=== PATIENT | male | born 1960 | race Two or more races ===

== ENCOUNTER → 2024-07-15 13:40 | Inpatient (IN) | payer MEDICAID, SELFPAY ==
[2023-02-07] VITALS (9 sets, daily range): BP systolic 110–135; BP diastolic 61–80; PULSE 68–93; RESP 20–82; TEMP 36.3–36.6; O2SAT 99–100
[2023-02-07 07:04] LABS: Albumin, Serum 3.8 gm/dL (3.4-4.8); Anion Gap 7 (7-16); BUN/Creatinine Ratio 58 Ratio (12-20); Blood Urea Nitrogen 29 mg/dL (9-23); Calcium 9.4 mg/dL (8.3-10.6); Calcium (Corrected) 9.6 mg/dL (8.5-10.1); Carbon Dioxide 27.1 mMol/L (20.0-31.0); Chloride 104 mMol/L (98-107); Creatinine (Component) 0.5 mg/dL (0.6-1.3); Estimated Creatinine Clearance 157.2 mL/min (>60); Glucose 198 mg/dL (74-106); Glucose,Fasting 198 mg/dL (74-106); Osmolality,Calculated 287 (275-295); Phosphorous 3.2 mg/dL (2.4-5.1); Potassium 4.2 mMol/L (3.4-5.1); Sodium 138 mMol/L (136-145); eGFR > 60 See Note
[2023-02-07] MEDS: FUROSEMIDE 20 MG TABLET GT (08:36)
[2023-02-07] MEDS: FAMOTIDINE 20 MG TABLET GT ×2 (08:37→20:26)
[2023-02-07] MEDS: ASCORBIC ACID 500 MG TABLET GT ×2 (08:37→20:25)
[2023-02-07] MEDS: AMLODIPINE 5 MG TABLET GT (08:37)
[2023-02-07] MEDS: SENNOSIDES 8.6 MG TABLET GT ×2 (08:38→20:26)
[2023-02-07] MEDS: ALBUTEROL NEB 2.5 MG/3 ML VIAL.NEB INH ×4 (11:46→13:23)
[2023-02-07] MEDS: IPRATROPIUM BROMIDE 0.2 MG/ML SOLUTION 0.5 MG INH ×5 (11:46→19:53)
--- NOTE | 2023-02-07 14:26 | PC.SS ---
Room visit: Resident is laying in bed with TV on with head of the bed elevated with call light properly placed. Resident is well groomed not showing any signs of distress. Resident has no changes in mood or behavior, resident to remain in current care as there is no changes in care or condition. Resident will continue to receive daily room visits from [facility] and will be offered any support needed.
[2023-02-07] MEDS: INSULIN REGULAR, HUMAN 100 UNIT/ML VIAL SC (18:06)
[2023-02-07] MEDS: INSULIN GLARGINE 100 UNIT/ML INSULN.PEN 14 UNIT SC ×3 (18:08→18:09)
[2023-02-07] MEDS: DOXAZOSIN 2 MG TABLET 4 MG GT (20:26)
[2023-02-08] VITALS (10 sets, daily range): BP systolic 123–155; BP diastolic 71–91; PULSE 69–76; RESP 20–22; TEMP 36.1–36.6; O2SAT 99–100
[2023-02-08] MEDS: IPRATROPIUM BROMIDE 0.2 MG/ML SOLUTION 0.5 MG INH ×4 (01:04→19:11)
[2023-02-08] MEDS: AMLODIPINE 5 MG TABLET GT (09:55)
[2023-02-08] MEDS: MULTIVIT-MIN/IRON FUM/FOLIC AC 1 EACH TABLET GT (09:55)
[2023-02-08] MEDS: FUROSEMIDE 20 MG TABLET GT (09:55)
[2023-02-08] MEDS: FAMOTIDINE 20 MG TABLET GT ×2 (09:56→20:10)
[2023-02-08] MEDS: ASCORBIC ACID 500 MG TABLET GT ×2 (09:56→20:11)
[2023-02-08] MEDS: SENNOSIDES 8.6 MG TABLET GT ×2 (09:56→20:11)
[2023-02-08] MEDS: ALBUTEROL NEB 2.5 MG/3 ML VIAL.NEB INH ×3 (11:14→19:11)
[2023-02-08] MEDS: INSULIN REGULAR, HUMAN 100 UNIT/ML VIAL SC ×2 (12:17→17:52)
[2023-02-08] MEDS: DOXAZOSIN 2 MG TABLET 4 MG GT (20:09)
[2023-02-09] VITALS (10 sets, daily range): BP systolic 115–146; BP diastolic 71–83; PULSE 68–80; RESP 20–22; TEMP 36.1–36.6; O2SAT 98–100
[2023-02-09] MEDS: ALBUTEROL NEB 2.5 MG/3 ML VIAL.NEB INH ×4 (00:19→16:48)
[2023-02-09] MEDS: IPRATROPIUM BROMIDE 0.2 MG/ML SOLUTION 0.5 MG INH ×4 (00:19→16:49)
[2023-02-09] MEDS: INSULIN REGULAR, HUMAN 100 UNIT/ML VIAL SC ×3 (06:11→17:38)
[2023-02-09] MEDS: MULTIVIT-MIN/IRON FUM/FOLIC AC 1 EACH TABLET GT (08:53)
[2023-02-09] MEDS: AMLODIPINE 5 MG TABLET GT (08:54)
[2023-02-09] MEDS: ASCORBIC ACID 500 MG TABLET GT ×2 (08:55→21:19)
[2023-02-09] MEDS: SENNOSIDES 8.6 MG TABLET GT ×2 (08:56→21:20)
[2023-02-09] MEDS: FAMOTIDINE 20 MG TABLET GT ×2 (08:56→21:19)
[2023-02-09] MEDS: INSULIN GLARGINE 100 UNIT/ML INSULN.PEN 14 UNIT SC (17:37)
[2023-02-09] MEDS: DOXAZOSIN 2 MG TABLET 4 MG GT (21:19)
[2023-02-10] VITALS (9 sets, daily range): BP systolic 122–158; BP diastolic 65–94; PULSE 72–89; RESP 20–23; TEMP 36.1–36.7; O2SAT 96–100
[2023-02-10] MEDS: IPRATROPIUM BROMIDE 0.2 MG/ML SOLUTION 0.5 MG INH ×4 (01:53→18:27)
[2023-02-10] MEDS: ALBUTEROL NEB 2.5 MG/3 ML VIAL.NEB INH ×4 (01:53→18:27)
--- NOTE | 2023-02-10 08:06 | PD.SAPROG ---
Progress Note - SubAcute DIAGNOSIS (1) Chronic respiratory failure: Status: Acute (2) Ventilator dependent: Status: Acute (3) PEG (percutaneous endoscopic gastrostomy) status: Status: Acute (4) Tracheostomy in place: Status: Acute SUBJECTIVE Fever:: none Shortness of Breath:: none GI:: no complaints Pain:: none OBJECTIVE Most recent vital signs: Last Vital Signs Temp 97.5 F 02/16/23 05:53 Pulse 79 02/16/23 05:53 Resp 20 02/16/23 05:53 BP 115/69 02/16/23 05:53 Pulse Ox 99 02/16/23 05:53 O2 Del Method Mechanical Ventilation 02/15/23 17:43 FiO2 35 02/16/23 01:14 Neurological:: PVS Speech:: none Answers questions:: no Respiratory:: shallow breathing Cardiovascular: RRR Abdomen: soft and nontender Decubitus:: none Tracheostomy:: to ventilator Feeding per:: G tube Complaints:: none ASSESSMENT & PLAN Assessment: Not responsive to verbal commands, no cognitive improvement. Diagnosis and treatment reviewed. Ventilator settings reviewed and continued Plan: Current treatment as ongoing
[2023-02-10] MEDS: FUROSEMIDE 20 MG TABLET GT (09:41)
[2023-02-10] MEDS: AMLODIPINE 5 MG TABLET GT (09:43)
[2023-02-10] MEDS: MULTIVIT-MIN/IRON FUM/FOLIC AC 1 EACH TABLET GT (09:43)
[2023-02-10] MEDS: SENNOSIDES 8.6 MG TABLET GT ×2 (09:44→19:51)
[2023-02-10] MEDS: FAMOTIDINE 20 MG TABLET GT ×2 (09:44→19:51)
[2023-02-10] MEDS: ASCORBIC ACID 500 MG TABLET GT ×2 (09:44→19:50)
[2023-02-10] MEDS: INSULIN REGULAR, HUMAN 100 UNIT/ML VIAL SC (11:39)
[2023-02-10] MEDS: INSULIN GLARGINE 100 UNIT/ML INSULN.PEN 14 UNIT SC (17:27)
[2023-02-10] MEDS: DOXAZOSIN 2 MG TABLET 4 MG GT (19:51)
[2023-02-11] VITALS (9 sets, daily range): BP systolic 105–148; BP diastolic 69–83; PULSE 74–83; RESP 19–22; TEMP 36–36.6; O2SAT 99–100
[2023-02-11] MEDS: ALBUTEROL NEB 2.5 MG/3 ML VIAL.NEB INH ×2 (01:00→06:07)
[2023-02-11] MEDS: IPRATROPIUM BROMIDE 0.2 MG/ML SOLUTION 0.5 MG INH ×2 (01:00→06:07)
[2023-02-11] MEDS: INSULIN REGULAR, HUMAN 100 UNIT/ML VIAL SC ×3 (05:57→23:42)
[2023-02-11] MEDS: FUROSEMIDE 20 MG TABLET GT ×2 (09:00→09:33)
[2023-02-11] MEDS: MULTIVIT-MIN/IRON FUM/FOLIC AC 1 EACH TABLET GT (09:33)
[2023-02-11] MEDS: AMLODIPINE 5 MG TABLET GT (09:33)
[2023-02-11] MEDS: FAMOTIDINE 20 MG TABLET GT ×2 (09:34→21:16)
[2023-02-11] MEDS: ASCORBIC ACID 500 MG TABLET GT ×2 (09:34→21:16)
[2023-02-11] MEDS: SENNOSIDES 8.6 MG TABLET GT ×2 (09:34→21:16)
--- NOTE | 2023-02-11 10:19 | PC.SS ---
Resident is here for subacute care with trach and GT in place, he is ventilator dependent. Resident is total care and requires 24 hour care, he has a heavy care regimen, family is unable to care for him at home. Currently resident does not have any changes in care or condition, he continues to require subacute care. Resident is not ready to DC to SNF or lower level of care, he will be evaluated as appropriate for DC panning.
[2023-02-11] MEDS: IPRATROPIUM/ALBUTEROL 3 ML AMPUL.NEB INH ×2 (11:42→19:39)
[2023-02-11] MEDS: INSULIN GLARGINE 100 UNIT/ML INSULN.PEN 14 UNIT SC (17:27)
[2023-02-11] MEDS: DOXAZOSIN 2 MG TABLET 4 MG GT (21:16)
[2023-02-12] VITALS (9 sets, daily range): BP systolic 114–147; BP diastolic 60–79; PULSE 75–81; RESP 20–27; TEMP 36.1–36.6; O2SAT 95–100
[2023-02-12] MEDS: IPRATROPIUM/ALBUTEROL 3 ML AMPUL.NEB INH ×4 (00:51→20:02)
[2023-02-12] MEDS: INSULIN REGULAR, HUMAN 100 UNIT/ML VIAL SC ×2 (05:47→17:39)
[2023-02-12] MEDS: FUROSEMIDE 20 MG TABLET GT (09:38)
[2023-02-12] MEDS: AMLODIPINE 5 MG TABLET GT (09:38)
[2023-02-12] MEDS: MULTIVIT-MIN/IRON FUM/FOLIC AC 1 EACH TABLET GT (09:38)
[2023-02-12] MEDS: FAMOTIDINE 20 MG TABLET GT ×2 (09:39→21:15)
[2023-02-12] MEDS: ASCORBIC ACID 500 MG TABLET GT ×2 (09:39→21:14)
[2023-02-12] MEDS: INSULIN GLARGINE 100 UNIT/ML INSULN.PEN 14 UNIT SC (17:38)
[2023-02-12] MEDS: SENNOSIDES 8.6 MG TABLET GT (21:14)
[2023-02-12] MEDS: DOXAZOSIN 2 MG TABLET 4 MG GT (21:15)
[2023-02-12] MEDS: ACETAMINOPHEN 325 MG/10.15 ML 650 MG GT (21:15)
[2023-02-13] VITALS (9 sets, daily range): BP systolic 120–146; BP diastolic 79–84; PULSE 57–87; RESP 20–32; TEMP 36.2–36.4; O2SAT 96–100
[2023-02-13] MEDS: IPRATROPIUM/ALBUTEROL 3 ML AMPUL.NEB INH ×4 (01:17→19:25)
[2023-02-13] MEDS: INSULIN REGULAR, HUMAN 100 UNIT/ML VIAL SC ×2 (05:19→17:25)
[2023-02-13] MEDS: FUROSEMIDE 20 MG TABLET GT ×2 (09:41→18:42)
[2023-02-13] MEDS: MULTIVIT-MIN/IRON FUM/FOLIC AC 1 EACH TABLET GT ×2 (09:41→18:42)
[2023-02-13] MEDS: SENNOSIDES 8.6 MG TABLET GT ×3 (09:41→20:26)
[2023-02-13] MEDS: AMLODIPINE 5 MG TABLET GT (09:42)
[2023-02-13] MEDS: ASCORBIC ACID 500 MG TABLET GT ×2 (09:43→20:24)
[2023-02-13] MEDS: FAMOTIDINE 20 MG TABLET GT ×2 (09:43→20:24)
[2023-02-13] MEDS: DOXAZOSIN 2 MG TABLET 4 MG GT (20:27)
[2023-02-14] VITALS (10 sets, daily range): BP systolic 115–159; BP diastolic 73–85; PULSE 68–87; RESP 19–21; TEMP 36.1–36.5; O2SAT 96–100
[2023-02-14] MEDS: IPRATROPIUM/ALBUTEROL 3 ML AMPUL.NEB INH ×4 (00:50→18:55)
[2023-02-14] MEDS: AMLODIPINE 5 MG TABLET GT (09:03)
[2023-02-14] MEDS: ASCORBIC ACID 500 MG TABLET GT ×2 (09:04→21:22)
[2023-02-14] MEDS: FAMOTIDINE 20 MG TABLET GT ×2 (09:04→21:22)
[2023-02-14] MEDS: FUROSEMIDE 20 MG TABLET GT (09:04)
[2023-02-14] MEDS: MULTIVIT-MIN/IRON FUM/FOLIC AC 1 EACH TABLET GT (09:05)
[2023-02-14] MEDS: SENNOSIDES 8.6 MG TABLET GT ×2 (09:05→21:22)
[2023-02-14] MEDS: INSULIN REGULAR, HUMAN 100 UNIT/ML VIAL SC ×2 (12:36→17:43)
--- NOTE | 2023-02-14 15:52 | PC.SS ---
Room visit: Resident is laying in bed with TV on with head of the bed elevated with call light properly placed. Resident is well groomed not showing any signs of distress. Resident continues to receive daily room visit from this [facility]. Resident here to day for bedside visit with resident. Resident has no changes in mood or behavior, resident to remain in current care as there is no changes in care or condition.
[2023-02-14] MEDS: INSULIN GLARGINE 100 UNIT/ML INSULN.PEN 14 UNIT SC (17:41)
[2023-02-14] MEDS: DOXAZOSIN 2 MG TABLET 4 MG GT (21:22)
[2023-02-15] VITALS (9 sets, daily range): BP systolic 102–147; BP diastolic 44–82; PULSE 76–84; RESP 20–24; TEMP 36–36.4; O2SAT 97–100
[2023-02-15] MEDS: IPRATROPIUM/ALBUTEROL 3 ML AMPUL.NEB INH ×3 (00:53→19:40)
[2023-02-15] MEDS: AMLODIPINE 5 MG TABLET GT (09:43)
[2023-02-15] MEDS: FUROSEMIDE 20 MG TABLET GT (09:44)
[2023-02-15] MEDS: FAMOTIDINE 20 MG TABLET GT ×2 (09:44→21:06)
[2023-02-15] MEDS: ASCORBIC ACID 500 MG TABLET GT ×2 (09:44→21:06)
[2023-02-15] MEDS: MULTIVIT-MIN/IRON FUM/FOLIC AC 1 EACH TABLET GT (09:45)
[2023-02-15] MEDS: SENNOSIDES 8.6 MG TABLET GT ×2 (09:45→21:07)
[2023-02-15] MEDS: INSULIN REGULAR, HUMAN 100 UNIT/ML VIAL SC ×2 (11:42→17:25)
[2023-02-15] MEDS: INSULIN GLARGINE 100 UNIT/ML INSULN.PEN 14 UNIT SC (17:27)
[2023-02-15] MEDS: DOXAZOSIN 2 MG TABLET 4 MG GT (21:06)
[2023-02-16] VITALS (9 sets, daily range): BP systolic 112–132; BP diastolic 69–76; PULSE 74–84; RESP 20–24; TEMP 36.2–36.4; O2SAT 99–100
[2023-02-16] MEDS: IPRATROPIUM/ALBUTEROL 3 ML AMPUL.NEB INH ×4 (01:14→19:47)
[2023-02-16] MEDS: INSULIN REGULAR, HUMAN 100 UNIT/ML VIAL SC ×3 (05:54→17:19)
[2023-02-16] MEDS: AMLODIPINE 5 MG TABLET GT (09:20)
[2023-02-16] MEDS: FAMOTIDINE 20 MG TABLET GT ×2 (09:21→20:48)
[2023-02-16] MEDS: ASCORBIC ACID 500 MG TABLET GT ×2 (09:21→20:48)
[2023-02-16] MEDS: FUROSEMIDE 20 MG TABLET GT (09:21)
[2023-02-16] MEDS: SENNOSIDES 8.6 MG TABLET GT ×2 (09:22→20:48)
[2023-02-16] MEDS: MULTIVIT-MIN/IRON FUM/FOLIC AC 1 EACH TABLET GT (09:22)
[2023-02-16] MEDS: INSULIN GLARGINE 100 UNIT/ML INSULN.PEN 14 UNIT SC (17:18)
[2023-02-16] MEDS: DOXAZOSIN 2 MG TABLET 4 MG GT (20:48)
[2023-02-17] VITALS (8 sets, daily range): BP systolic 124–135; BP diastolic 71–83; PULSE 78–96; RESP 20–23; TEMP 36.1–36.4; O2SAT 99–100
[2023-02-17] MEDS: IPRATROPIUM/ALBUTEROL 3 ML AMPUL.NEB INH ×4 (00:03→19:53)
[2023-02-17] MEDS: AMLODIPINE 5 MG TABLET GT (09:36)
[2023-02-17] MEDS: ASCORBIC ACID 500 MG TABLET GT ×2 (09:37→20:33)
[2023-02-17] MEDS: SENNOSIDES 8.6 MG TABLET GT ×2 (09:37→20:34)
[2023-02-17] MEDS: MULTIVIT-MIN/IRON FUM/FOLIC AC 1 EACH TABLET GT (09:37)
[2023-02-17] MEDS: FUROSEMIDE 20 MG TABLET GT (09:37)
[2023-02-17] MEDS: FAMOTIDINE 20 MG TABLET GT ×2 (09:37→20:34)
[2023-02-17] MEDS: INSULIN REGULAR, HUMAN 100 UNIT/ML VIAL SC (12:05)
[2023-02-17] MEDS: INSULIN GLARGINE 100 UNIT/ML INSULN.PEN 14 UNIT SC (17:36)
[2023-02-17] MEDS: DOXAZOSIN 2 MG TABLET 4 MG GT (20:34)
[2023-02-18] VITALS (9 sets, daily range): BP systolic 113–138; BP diastolic 68–77; PULSE 67–87; RESP 20–24; TEMP 36.1–36.6; O2SAT 96–100
[2023-02-18] MEDS: IPRATROPIUM/ALBUTEROL 3 ML AMPUL.NEB INH ×4 (00:18→19:20)
[2023-02-18] MEDS: AMLODIPINE 5 MG TABLET GT (07:50)
[2023-02-18] MEDS: FAMOTIDINE 20 MG TABLET GT ×2 (07:51→21:31)
[2023-02-18] MEDS: ASCORBIC ACID 500 MG TABLET GT ×2 (07:51→21:31)
[2023-02-18] MEDS: MULTIVIT-MIN/IRON FUM/FOLIC AC 1 EACH TABLET GT (07:52)
[2023-02-18] MEDS: SENNOSIDES 8.6 MG TABLET GT ×2 (07:52→21:32)
[2023-02-18] MEDS: FUROSEMIDE 20 MG TABLET GT (07:52)
[2023-02-18] MEDS: INSULIN REGULAR, HUMAN 100 UNIT/ML VIAL SC ×2 (11:52→17:32)
[2023-02-18] MEDS: INSULIN GLARGINE 100 UNIT/ML INSULN.PEN 14 UNIT SC (17:32)
[2023-02-18] MEDS: DOXAZOSIN 2 MG TABLET 4 MG GT (21:31)
--- NOTE | 2023-02-18 22:04 | PD.SAPROG ---
Progress Note - SubAcute DIAGNOSIS (1) Chronic respiratory failure: Status: Acute (2) Ventilator dependent: Status: Acute (3) PEG (percutaneous endoscopic gastrostomy) status: Status: Acute (4) Tracheostomy in place: Status: Acute SUBJECTIVE Fever:: none Shortness of Breath:: none GI:: no complaints Pain:: none OBJECTIVE Most recent vital signs: Last Vital Signs Temp 97.9 F 02/18/23 18:00 Pulse 83 02/18/23 19:20 Resp 22 H 02/18/23 19:20 BP 123/77 02/18/23 18:00 Pulse Ox 100 02/18/23 19:20 O2 Del Method Mechanical Ventilation 02/18/23 06:00 FiO2 35 02/18/23 19:20 Neurological:: PVS Speech:: none Answers questions:: no Respiratory:: shallow breathing Cardiovascular: RRR Abdomen: soft and nontender Decubitus:: none Tracheostomy:: to ventilator Feeding per:: G tube Complaints:: none ASSESSMENT & PLAN Assessment: Not responsive to verbal commands, no cognitive improvement. Diagnosis and treatment reviewed. Ventilator settings reviewed and continued Plan: Current treatment as ongoing
[2023-02-19] VITALS (10 sets, daily range): BP systolic 116–135; BP diastolic 69–82; PULSE 67–87; RESP 20–24; TEMP 36.2–36.6; O2SAT 96–100
[2023-02-19] MEDS: IPRATROPIUM/ALBUTEROL 3 ML AMPUL.NEB INH ×3 (06:10→19:35)
[2023-02-19] MEDS: AMLODIPINE 5 MG TABLET GT (08:40)
[2023-02-19] MEDS: ASCORBIC ACID 500 MG TABLET GT ×2 (08:41→21:55)
[2023-02-19] MEDS: FAMOTIDINE 20 MG TABLET GT ×2 (08:41→21:55)
[2023-02-19] MEDS: SENNOSIDES 8.6 MG TABLET GT ×2 (08:42→21:56)
[2023-02-19] MEDS: FUROSEMIDE 20 MG TABLET GT (08:42)
[2023-02-19] MEDS: MULTIVIT-MIN/IRON FUM/FOLIC AC 1 EACH TABLET GT (08:42)
[2023-02-19] MEDS: INSULIN REGULAR, HUMAN 100 UNIT/ML VIAL SC (17:35)
[2023-02-19] MEDS: INSULIN GLARGINE 100 UNIT/ML INSULN.PEN 14 UNIT SC (17:36)
[2023-02-19] MEDS: DOXAZOSIN 2 MG TABLET 4 MG GT (21:55)
[2023-02-20] VITALS (10 sets, daily range): BP systolic 103–121; BP diastolic 62–73; PULSE 70–79; RESP 20–23; TEMP 36.3–36.7; O2SAT 98–100
[2023-02-20] MEDS: IPRATROPIUM/ALBUTEROL 3 ML AMPUL.NEB INH ×4 (00:30→19:15)
[2023-02-20] MEDS: INSULIN REGULAR, HUMAN 100 UNIT/ML VIAL SC ×3 (05:29→17:30)
[2023-02-20] MEDS: AMLODIPINE 5 MG TABLET GT (09:34)
[2023-02-20] MEDS: FUROSEMIDE 20 MG TABLET GT (09:35)
[2023-02-20] MEDS: FAMOTIDINE 20 MG TABLET GT ×2 (09:35→21:05)
[2023-02-20] MEDS: MULTIVIT-MIN/IRON FUM/FOLIC AC 1 EACH TABLET GT (09:35)
[2023-02-20] MEDS: ASCORBIC ACID 500 MG TABLET GT ×2 (09:35→21:04)
[2023-02-20] MEDS: SENNOSIDES 8.6 MG TABLET GT ×2 (09:36→21:06)
--- NOTE | 2023-02-20 12:11 | CHAP ---
11:00 AM visited by spiritual care volunteer. Patient sleeping peacefully. She provided a silent prayer by patient bed .
--- NOTE | 2023-02-20 12:28 | PC.SS ---
Room visit: Resident is laying in bed with head of the bed elevated. Resident has TV on with call light properly placed, showing no signs of distress or changes in mood or behavior. Resident has no changes in care or condition, resident will remain in current care and will continue to be evaluated as appropriate fro DC to lower level of care. Resident will continue to receive daily room visits from staff.
[2023-02-20] MEDS: INSULIN GLARGINE 100 UNIT/ML INSULN.PEN 14 UNIT SC (17:30)
[2023-02-20] MEDS: DOXAZOSIN 2 MG TABLET 4 MG GT (21:05)
[2023-02-21] VITALS (8 sets, daily range): BP systolic 118–143; BP diastolic 73–81; PULSE 73–83; RESP 20–24; TEMP 36.3–36.4; O2SAT 97–100
[2023-02-21] MEDS: IPRATROPIUM/ALBUTEROL 3 ML AMPUL.NEB INH ×4 (00:18→19:37)
[2023-02-21] MEDS: INSULIN REGULAR, HUMAN 100 UNIT/ML VIAL SC (06:25)
[2023-02-21] MEDS: FAMOTIDINE 20 MG TABLET GT ×2 (08:02→21:07)
[2023-02-21] MEDS: AMLODIPINE 5 MG TABLET GT (08:02)
[2023-02-21] MEDS: FUROSEMIDE 20 MG TABLET GT (08:02)
[2023-02-21] MEDS: SENNOSIDES 8.6 MG TABLET GT ×2 (08:02→21:17)
[2023-02-21] MEDS: ASCORBIC ACID 500 MG TABLET GT ×2 (08:02→21:06)
[2023-02-21] MEDS: MULTIVIT-MIN/IRON FUM/FOLIC AC 1 EACH TABLET GT (08:02)
[2023-02-21] MEDS: ACETAMINOPHEN 325 MG/10.15 ML 650 MG GT (08:04)
[2023-02-21] MEDS: INSULIN GLARGINE 100 UNIT/ML INSULN.PEN 14 UNIT SC (17:54)
[2023-02-21] MEDS: DOXAZOSIN 2 MG TABLET 4 MG GT (21:06)
[2023-02-22] VITALS (9 sets, daily range): BP systolic 110–129; BP diastolic 68–79; PULSE 72–89; RESP 18–23; TEMP 36.2–36.6; O2SAT 98–100
[2023-02-22] MEDS: IPRATROPIUM/ALBUTEROL 3 ML AMPUL.NEB INH ×4 (01:48→19:08)
[2023-02-22] MEDS: INSULIN REGULAR, HUMAN 100 UNIT/ML VIAL SC ×2 (05:32→17:11)
[2023-02-22] MEDS: ASCORBIC ACID 500 MG TABLET GT ×2 (09:04→20:02)
[2023-02-22] MEDS: AMLODIPINE 5 MG TABLET GT (09:04)
[2023-02-22] MEDS: SENNOSIDES 8.6 MG TABLET GT ×2 (09:04→20:02)
[2023-02-22] MEDS: FAMOTIDINE 20 MG TABLET GT ×2 (09:04→20:03)
[2023-02-22] MEDS: MULTIVIT-MIN/IRON FUM/FOLIC AC 1 EACH TABLET GT (09:05)
[2023-02-22] MEDS: FUROSEMIDE 20 MG TABLET GT (09:05)
[2023-02-22] MEDS: ACETAMINOPHEN 325 MG/10.15 ML 650 MG GT ×2 (09:05→20:01)
[2023-02-22 10:07] LABS: Glucose,Fasting 109 mg/dL (74-106)
[2023-02-22] MEDS: INSULIN GLARGINE 100 UNIT/ML INSULN.PEN 14 UNIT SC (17:11)
[2023-02-22] MEDS: DOXAZOSIN 2 MG TABLET 4 MG GT (20:02)
--- NOTE | 2023-02-22 22:18 | PD.SAPROG ---
Progress Note - SubAcute DIAGNOSIS (1) Chronic respiratory failure: Status: Acute (2) Ventilator dependent: Status: Acute (3) PEG (percutaneous endoscopic gastrostomy) status: Status: Acute (4) Tracheostomy in place: Status: Acute SUBJECTIVE Fever:: none Shortness of Breath:: none GI:: no complaints Pain:: none OBJECTIVE Most recent vital signs: Last Vital Signs Temp 97.9 F 02/22/23 18:00 Pulse 82 02/22/23 18:00 Resp 22 H 02/22/23 18:00 BP 112/68 02/22/23 18:00 Pulse Ox 98 02/22/23 18:00 O2 Del Method Mechanical Ventilation 02/22/23 06:00 FiO2 35 02/22/23 18:00 Neurological:: PVS Speech:: none Answers questions:: no Respiratory:: shallow breathing Cardiovascular: RRR Abdomen: soft and nontender Decubitus:: none Tracheostomy:: to ventilator Feeding per:: G tube Complaints:: none ASSESSMENT & PLAN Assessment: Not responsive to verbal commands, no cognitive improvement. Diagnosis and treatment reviewed. Ventilator settings reviewed and continued Plan: Current treatment as ongoing
[2023-02-23] VITALS (11 sets, daily range): BP systolic 128–143; BP diastolic 70–84; PULSE 71–88; RESP 18–26; TEMP 36.1–36.6; O2SAT 98–100
[2023-02-23] MEDS: IPRATROPIUM/ALBUTEROL 3 ML AMPUL.NEB INH ×4 (00:28→19:59)
[2023-02-23] MEDS: AMLODIPINE 5 MG TABLET GT (09:34)
[2023-02-23] MEDS: SENNOSIDES 8.6 MG TABLET GT ×2 (09:35→21:21)
[2023-02-23] MEDS: FUROSEMIDE 20 MG TABLET GT (09:35)
[2023-02-23] MEDS: ASCORBIC ACID 500 MG TABLET GT ×2 (09:35→21:20)
[2023-02-23] MEDS: MULTIVIT-MIN/IRON FUM/FOLIC AC 1 EACH TABLET GT (09:35)
[2023-02-23] MEDS: FAMOTIDINE 20 MG TABLET GT ×2 (09:35→21:21)
--- NOTE | 2023-02-23 10:28 | CHAP ---
Patient was visited by the Spiritual Care Volunteer who also prayed with them. (Volunteer was in the hospital from 09:12-10:30).
[2023-02-23] MEDS: INSULIN REGULAR, HUMAN 100 UNIT/ML VIAL SC (17:19)
[2023-02-23] MEDS: INSULIN GLARGINE 100 UNIT/ML INSULN.PEN 14 UNIT SC (17:20)
[2023-02-23] MEDS: DOXAZOSIN 2 MG TABLET 4 MG GT (21:21)
[2023-02-24] VITALS (9 sets, daily range): BP systolic 104–142; BP diastolic 63–89; PULSE 69–86; RESP 20–24; TEMP 36.1–36.6; O2SAT 98–100
[2023-02-24] MEDS: IPRATROPIUM/ALBUTEROL 3 ML AMPUL.NEB INH ×4 (00:10→20:09)
[2023-02-24] MEDS: INSULIN REGULAR, HUMAN 100 UNIT/ML VIAL SC ×2 (06:01→12:03)
[2023-02-24] MEDS: AMLODIPINE 5 MG TABLET GT (09:04)
[2023-02-24] MEDS: ASCORBIC ACID 500 MG TABLET GT ×2 (09:04→21:12)
[2023-02-24] MEDS: FAMOTIDINE 20 MG TABLET GT ×2 (09:04→21:12)
[2023-02-24] MEDS: MULTIVIT-MIN/IRON FUM/FOLIC AC 1 EACH TABLET GT (09:05)
[2023-02-24] MEDS: FUROSEMIDE 20 MG TABLET GT (09:05)
[2023-02-24] MEDS: SENNOSIDES 8.6 MG TABLET GT ×2 (09:05→21:13)
[2023-02-24] MEDS: INSULIN GLARGINE 100 UNIT/ML INSULN.PEN 14 UNIT SC (17:26)
[2023-02-25] VITALS (8 sets, daily range): BP systolic 109–145; BP diastolic 69–84; PULSE 71–91; RESP 20–32; TEMP 36.3–36.4; O2SAT 99–100
[2023-02-25] MEDS: IPRATROPIUM/ALBUTEROL 3 ML AMPUL.NEB INH ×4 (00:22→20:09)
[2023-02-25] MEDS: ACETAMINOPHEN 325 MG/10.15 ML 650 MG GT (04:37)
[2023-02-25] MEDS: INSULIN REGULAR, HUMAN 100 UNIT/ML VIAL SC (05:16)
[2023-02-25] MEDS: AMLODIPINE 5 MG TABLET GT (08:41)
[2023-02-25] MEDS: FUROSEMIDE 20 MG TABLET GT (08:42)
[2023-02-25] MEDS: FAMOTIDINE 20 MG TABLET GT ×2 (08:42→21:01)
[2023-02-25] MEDS: ASCORBIC ACID 500 MG TABLET GT ×2 (08:42→21:00)
[2023-02-25] MEDS: MULTIVIT-MIN/IRON FUM/FOLIC AC 1 EACH TABLET GT (08:42)
[2023-02-25] MEDS: SENNOSIDES 8.6 MG TABLET GT ×2 (08:43→21:01)
[2023-02-25] MEDS: INSULIN GLARGINE 100 UNIT/ML INSULN.PEN 14 UNIT SC (17:45)
[2023-02-25] MEDS: DOXAZOSIN 2 MG TABLET 4 MG GT (21:01)
[2023-02-26] VITALS (10 sets, daily range): BP systolic 121–149; BP diastolic 70–81; PULSE 68–84; RESP 18–22; TEMP 36.3–36.6; O2SAT 96–100
[2023-02-26] MEDS: INSULIN REGULAR, HUMAN 100 UNIT/ML VIAL SC ×2 (00:28→18:00)
[2023-02-26] MEDS: IPRATROPIUM/ALBUTEROL 3 ML AMPUL.NEB INH ×4 (00:34→19:40)
[2023-02-26] MEDS: FUROSEMIDE 20 MG TABLET GT (08:51)
[2023-02-26] MEDS: FAMOTIDINE 20 MG TABLET GT ×2 (08:51→20:30)
[2023-02-26] MEDS: AMLODIPINE 5 MG TABLET GT (08:51)
[2023-02-26] MEDS: ASCORBIC ACID 500 MG TABLET GT ×2 (08:51→20:31)
[2023-02-26] MEDS: MULTIVIT-MIN/IRON FUM/FOLIC AC 1 EACH TABLET GT (08:52)
[2023-02-26] MEDS: SENNOSIDES 8.6 MG TABLET GT ×2 (08:52→20:30)
[2023-02-26] MEDS: CARBAMIDE PEROXIDE OTIC SOL 15 ML BTL 5 DROP BOTH EARS (09:00)
--- NOTE | 2023-02-26 10:50 | PD.SAPROG ---
Progress Note - SubAcute DIAGNOSIS (1) Chronic respiratory failure: Status: Acute (2) Ventilator dependent: Status: Acute (3) PEG (percutaneous endoscopic gastrostomy) status: Status: Acute (4) Tracheostomy in place: Status: Acute SUBJECTIVE Fever:: none Shortness of Breath:: none GI:: no complaints Pain:: none OBJECTIVE Most recent vital signs: Last Vital Signs Temp 96.9 F 02/28/23 06:00 Pulse 73 02/28/23 06:00 Resp 21 H 02/28/23 06:00 BP 151/83 H 02/28/23 06:00 Pulse Ox 99 02/28/23 00:21 O2 Del Method Mechanical Ventilation 02/28/23 00:00 FiO2 35 02/28/23 00:21 Neurological:: PVS Speech:: none Answers questions:: no Respiratory:: shallow breathing Cardiovascular: RRR Abdomen: soft and nontender Decubitus:: none Tracheostomy:: to ventilator Feeding per:: G tube Complaints:: none ASSESSMENT & PLAN Assessment: Not responsive to verbal commands, no cognitive improvement. Diagnosis and treatment reviewed. Ventilator settings reviewed and continued Plan: Current treatment as ongoing
[2023-02-26] MEDS: INSULIN GLARGINE 100 UNIT/ML INSULN.PEN 14 UNIT SC (18:00)
[2023-02-26] MEDS: DOXAZOSIN 2 MG TABLET 4 MG GT (20:29)
[2023-02-27] VITALS (9 sets, daily range): BP systolic 131–145; BP diastolic 67–81; PULSE 68–89; RESP 12–24; TEMP 36.1–36.6; O2SAT 97–100
[2023-02-27] MEDS: IPRATROPIUM/ALBUTEROL 3 ML AMPUL.NEB INH ×4 (00:26→18:21)
[2023-02-27] MEDS: INSULIN REGULAR, HUMAN 100 UNIT/ML VIAL SC ×2 (05:41→17:34)
[2023-02-27] MEDS: AMLODIPINE 5 MG TABLET GT (09:08)
[2023-02-27] MEDS: SENNOSIDES 8.6 MG TABLET GT ×2 (09:09→20:57)
[2023-02-27] MEDS: MULTIVIT-MIN/IRON FUM/FOLIC AC 1 EACH TABLET GT (09:09)
[2023-02-27] MEDS: FUROSEMIDE 20 MG TABLET GT (09:09)
[2023-02-27] MEDS: ASCORBIC ACID 500 MG TABLET GT ×2 (09:09→21:21)
[2023-02-27] MEDS: FAMOTIDINE 20 MG TABLET GT ×2 (09:09→20:57)
[2023-02-27] MEDS: ACETAMINOPHEN 325 MG/10.15 ML 650 MG GT (09:10)
[2023-02-27] MEDS: INSULIN GLARGINE 100 UNIT/ML INSULN.PEN 14 UNIT SC (17:34)
--- NOTE | 2023-02-27 17:51 | CHAP ---
11:00 AM visited by spiritual care volunteer. Patient sleeping peacefully. She provided a silent prayer by patient bed
[2023-02-27] MEDS: DOXAZOSIN 2 MG TABLET 4 MG GT (20:57)
[2023-02-28] VITALS (9 sets, daily range): BP systolic 110–151; BP diastolic 67–83; PULSE 70–80; RESP 20–21; TEMP 36.1–36.5; O2SAT 99–100
[2023-02-28] MEDS: IPRATROPIUM/ALBUTEROL 3 ML AMPUL.NEB INH ×4 (00:21→17:55)
[2023-02-28] MEDS: ACETAMINOPHEN 325 MG/10.15 ML 650 MG GT (04:52)
[2023-02-28] MEDS: INSULIN REGULAR, HUMAN 100 UNIT/ML VIAL SC ×2 (05:44→18:11)
[2023-02-28] MEDS: AMLODIPINE 5 MG TABLET GT (08:13)
[2023-02-28] MEDS: ASCORBIC ACID 500 MG TABLET GT ×2 (08:14→20:32)
[2023-02-28] MEDS: MULTIVIT-MIN/IRON FUM/FOLIC AC 1 EACH TABLET GT (08:15)
[2023-02-28] MEDS: FAMOTIDINE 20 MG TABLET GT ×2 (08:15→20:33)
[2023-02-28] MEDS: FUROSEMIDE 20 MG TABLET GT (08:15)
[2023-02-28] MEDS: SENNOSIDES 8.6 MG TABLET GT ×2 (08:15→20:33)
--- NOTE | 2023-02-28 14:37 | PC.SS ---
Room visit: Resident is seen laying in bed with head of the bed elevated, resident has call light properly placed with no signs of distress. Resident is well groomed and appears comfortable. Resident continues to receive daily room visits, he is not showing any changes in mood or behavior. Resident will continue to receive room visits from staff and be offered support as he will accept.
[2023-02-28] MEDS: INSULIN GLARGINE 100 UNIT/ML INSULN.PEN 14 UNIT SC (18:11)
[2023-02-28] MEDS: DOXAZOSIN 2 MG TABLET 4 MG GT (20:33)
[2023-03-01] VITALS (10 sets, daily range): BP systolic 106–146; BP diastolic 67–85; PULSE 74–97; RESP 20–24; TEMP 35.9–36.3; O2SAT 100
[2023-03-01] MEDS: IPRATROPIUM/ALBUTEROL 3 ML AMPUL.NEB INH ×4 (00:30→19:15)
[2023-03-01] MEDS: INSULIN REGULAR, HUMAN 100 UNIT/ML VIAL SC ×2 (05:53→11:45)
[2023-03-01] MEDS: ASCORBIC ACID 500 MG TABLET GT ×2 (09:07→21:05)
[2023-03-01] MEDS: AMLODIPINE 5 MG TABLET GT (09:07)
[2023-03-01] MEDS: MULTIVIT-MIN/IRON FUM/FOLIC AC 1 EACH TABLET GT (09:08)
[2023-03-01] MEDS: FAMOTIDINE 20 MG TABLET GT ×2 (09:08→21:07)
[2023-03-01] MEDS: FUROSEMIDE 20 MG TABLET GT (09:08)
[2023-03-01] MEDS: SENNOSIDES 8.6 MG TABLET GT ×2 (09:09→21:07)
[2023-03-01] MEDS: INSULIN GLARGINE 100 UNIT/ML INSULN.PEN 14 UNIT SC (17:29)
[2023-03-01] MEDS: DOXAZOSIN 2 MG TABLET 4 MG GT (21:07)
[2023-03-02] VITALS (8 sets, daily range): BP systolic 120–151; BP diastolic 72–88; PULSE 78–84; RESP 20–21; TEMP 36.3–36.6; O2SAT 97–100
[2023-03-02] MEDS: IPRATROPIUM/ALBUTEROL 3 ML AMPUL.NEB INH ×4 (00:35→19:23)
[2023-03-02] MEDS: AMLODIPINE 5 MG TABLET GT (09:38)
[2023-03-02] MEDS: FUROSEMIDE 20 MG TABLET GT (09:39)
[2023-03-02] MEDS: FAMOTIDINE 20 MG TABLET GT ×2 (09:39→19:59)
[2023-03-02] MEDS: ASCORBIC ACID 500 MG TABLET GT ×2 (09:39→19:59)
[2023-03-02] MEDS: SENNOSIDES 8.6 MG TABLET GT ×2 (09:40→20:00)
[2023-03-02] MEDS: MULTIVIT-MIN/IRON FUM/FOLIC AC 1 EACH TABLET GT (09:40)
[2023-03-02] MEDS: ACETAMINOPHEN 325 MG/10.15 ML 650 MG GT (09:41)
--- NOTE | 2023-03-02 10:20 | CHAP ---
Patient was visited by the Spiritual Care Volunteer who prayed for them. (Volunteer was in the hospital from 08:36-10:20)
[2023-03-02] MEDS: INSULIN REGULAR, HUMAN 100 UNIT/ML VIAL SC ×2 (11:40→17:10)
[2023-03-02] MEDS: INSULIN GLARGINE 100 UNIT/ML INSULN.PEN 14 UNIT SC (17:10)
[2023-03-02] MEDS: DOXAZOSIN 2 MG TABLET 4 MG GT (20:00)
--- NOTE | 2023-03-02 22:51 | PD.SAPROG ---
Progress Note - SubAcute DIAGNOSIS (1) Chronic respiratory failure: Status: Chronic (2) Ventilator dependent: Status: Chronic (3) PEG (percutaneous endoscopic gastrostomy) status: Status: Chronic (4) Tracheostomy in place: Status: Chronic SUBJECTIVE Fever:: none Shortness of Breath:: none GI:: no complaints Pain:: none OBJECTIVE Most recent vital signs: Last Vital Signs Temp 97.9 F 03/02/23 17:59 Pulse 84 03/02/23 19:24 Resp 20 03/02/23 19:24 BP 121/72 03/02/23 17:59 Pulse Ox 100 03/02/23 19:24 O2 Del Method Mechanical Ventilation 03/02/23 17:59 FiO2 35 03/02/23 19:24 Neurological:: PVS Speech:: none Answers questions:: no Respiratory:: shallow breathing Cardiovascular: RRR Abdomen: soft and nontender Extremities:: deformities Decubitus:: none Tracheostomy:: to ventilator Feeding per:: G tube Complaints:: none ASSESSMENT & PLAN Assessment: Not responsive to verbal commands, no cognitive improvement. Diagnosis and treatment reviewed. Ventilator settings reviewed and continued Plan: Current treatment as ongoing
[2023-03-03] VITALS (9 sets, daily range): BP systolic 108–145; BP diastolic 64–82; PULSE 68–97; RESP 19–26; TEMP 36.2–36.5; O2SAT 99–100
[2023-03-03] MEDS: IPRATROPIUM/ALBUTEROL 3 ML AMPUL.NEB INH ×4 (00:26→18:49)
[2023-03-03] MEDS: MULTIVIT-MIN/IRON FUM/FOLIC AC 1 EACH TABLET GT (09:19)
[2023-03-03] MEDS: AMLODIPINE 5 MG TABLET GT (09:22)
[2023-03-03] MEDS: FUROSEMIDE 20 MG TABLET GT (09:25)
[2023-03-03] MEDS: ASCORBIC ACID 500 MG TABLET GT ×2 (09:25→20:00)
[2023-03-03] MEDS: FAMOTIDINE 20 MG TABLET GT ×2 (09:25→20:01)
[2023-03-03] MEDS: SENNOSIDES 8.6 MG TABLET GT ×2 (09:25→20:02)
--- NOTE | 2023-03-03 10:12 | PC.SS ---
Room visit: Resident is laying in bed with vent and GT in place. Resident is non verbal he is awake and able to nod head yes to simple yes no questions. Resident is seen reaching out with left hand, making more movement in bed. When asked if he would like to come out of room and explore activities room he nodded his head yes. This SSD spoke with charge nurse regarding plan to get resident out of room and participating in activities as he will accept. Spiritual care visits are encouraged as he is more awake and engaging. This SSD will continue to follow up with resident and will reach out to resident to encourage more participation.
[2023-03-03] MEDS: INSULIN REGULAR, HUMAN 100 UNIT/ML VIAL SC ×2 (12:21→17:33)
[2023-03-03] MEDS: INSULIN GLARGINE 100 UNIT/ML INSULN.PEN 14 UNIT SC (17:32)
[2023-03-04] VITALS (8 sets, daily range): BP systolic 108–128; BP diastolic 70–75; PULSE 82–97; RESP 20–26; TEMP 36.3–36.7; O2SAT 97–100
[2023-03-04] MEDS: IPRATROPIUM/ALBUTEROL 3 ML AMPUL.NEB INH ×4 (00:30→19:15)
[2023-03-04] MEDS: INSULIN REGULAR, HUMAN 100 UNIT/ML VIAL SC ×3 (00:38→17:38)
[2023-03-04] MEDS: AMLODIPINE 5 MG TABLET GT (09:23)
[2023-03-04] MEDS: FAMOTIDINE 20 MG TABLET GT ×2 (09:26→20:13)
[2023-03-04] MEDS: MULTIVIT-MIN/IRON FUM/FOLIC AC 1 EACH TABLET GT (09:26)
[2023-03-04] MEDS: SENNOSIDES 8.6 MG TABLET GT ×2 (09:26→20:13)
[2023-03-04] MEDS: ASCORBIC ACID 500 MG TABLET GT ×2 (09:26→20:11)
[2023-03-04] MEDS: FUROSEMIDE 20 MG TABLET GT (09:26)
[2023-03-04] MEDS: INSULIN GLARGINE 100 UNIT/ML INSULN.PEN 14 UNIT SC (17:38)
[2023-03-04] MEDS: DOXAZOSIN 2 MG TABLET 4 MG GT (20:12)
[2023-03-05] VITALS (9 sets, daily range): BP systolic 117–131; BP diastolic 65–83; PULSE 76–81; RESP 20–25; TEMP 35.9–36.4; O2SAT 96–100
[2023-03-05] MEDS: IPRATROPIUM/ALBUTEROL 3 ML AMPUL.NEB INH ×4 (00:23→18:05)
[2023-03-05] MEDS: INSULIN REGULAR, HUMAN 100 UNIT/ML VIAL SC ×2 (05:30→17:04)
[2023-03-05] MEDS: AMLODIPINE 5 MG TABLET GT (08:54)
[2023-03-05] MEDS: FAMOTIDINE 20 MG TABLET GT ×2 (08:55→20:51)
[2023-03-05] MEDS: ASCORBIC ACID 500 MG TABLET GT ×2 (08:55→20:51)
[2023-03-05] MEDS: FUROSEMIDE 20 MG TABLET GT (08:56)
[2023-03-05] MEDS: MULTIVIT-MIN/IRON FUM/FOLIC AC 1 EACH TABLET GT (08:57)
[2023-03-05] MEDS: SENNOSIDES 8.6 MG TABLET GT ×2 (08:57→20:51)
[2023-03-05] MEDS: INSULIN GLARGINE 100 UNIT/ML INSULN.PEN 14 UNIT SC (17:04)
[2023-03-05] MEDS: DOXAZOSIN 2 MG TABLET 4 MG GT (20:51)
[2023-03-06] VITALS (8 sets, daily range): BP systolic 99–124; BP diastolic 58–78; PULSE 72–86; RESP 20–22; TEMP 36.1–36.7; O2SAT 99–100
[2023-03-06] MEDS: IPRATROPIUM/ALBUTEROL 3 ML AMPUL.NEB INH ×4 (00:35→18:00)
[2023-03-06] MEDS: INSULIN REGULAR, HUMAN 100 UNIT/ML VIAL SC ×2 (05:21→12:04)
[2023-03-06] MEDS: ASCORBIC ACID 500 MG TABLET GT ×2 (09:49→21:18)
[2023-03-06] MEDS: AMLODIPINE 5 MG TABLET GT (09:49)
[2023-03-06] MEDS: FAMOTIDINE 20 MG TABLET GT ×2 (09:50→21:19)
[2023-03-06] MEDS: SENNOSIDES 8.6 MG TABLET GT ×2 (09:50→21:19)
[2023-03-06] MEDS: FUROSEMIDE 20 MG TABLET GT (09:50)
[2023-03-06] MEDS: ACETAMINOPHEN 325 MG/10.15 ML 650 MG GT (09:50)
[2023-03-06] MEDS: MULTIVIT-MIN/IRON FUM/FOLIC AC 1 EACH TABLET GT (09:50)
--- NOTE | 2023-03-06 11:25 | PD.SAPROG ---
Progress Note - SubAcute DIAGNOSIS (1) Chronic respiratory failure: Status: Chronic (2) Ventilator dependent: Status: Chronic (3) PEG (percutaneous endoscopic gastrostomy) status: Status: Chronic (4) Tracheostomy in place: Status: Chronic SUBJECTIVE Fever:: none Shortness of Breath:: none GI:: no complaints Pain:: none OBJECTIVE Most recent vital signs: Last Vital Signs Temp 97.4 F 03/09/23 05:53 Pulse 69 03/09/23 13:15 Resp 19 03/09/23 13:15 BP 112/73 03/09/23 09:17 Pulse Ox 99 03/09/23 13:15 O2 Del Method Mechanical Ventilation 03/07/23 12:00 FiO2 30 03/09/23 13:15 Neurological:: PVS Speech:: none Answers questions:: no Respiratory:: shallow breathing Cardiovascular: RRR Abdomen: soft and nontender Extremities:: deformities Decubitus:: none Tracheostomy:: to ventilator Feeding per:: G tube Complaints:: none ASSESSMENT & PLAN Assessment: Not responsive to verbal commands, no cognitive improvement. Diagnosis and treatment reviewed. Ventilator settings reviewed and continued Plan: Current treatment as ongoing
--- NOTE | 2023-03-06 13:48 | CHAP ---
11:00 AM Visited by spiritual care volunteer Provided prayer for Patient.
[2023-03-06] MEDS: INSULIN GLARGINE 100 UNIT/ML INSULN.PEN 14 UNIT SC (17:19)
[2023-03-06] MEDS: DOXAZOSIN 2 MG TABLET 4 MG GT (21:18)
[2023-03-07] VITALS (9 sets, daily range): BP systolic 107–162; BP diastolic 64–91; PULSE 72–81; RESP 20–23; TEMP 36.1–36.8; O2SAT 100
[2023-03-07] MEDS: IPRATROPIUM/ALBUTEROL 3 ML AMPUL.NEB INH ×4 (00:35→18:05)
[2023-03-07] MEDS: ASCORBIC ACID 500 MG TABLET GT ×2 (09:12→20:36)
[2023-03-07] MEDS: AMLODIPINE 5 MG TABLET GT (09:12)
[2023-03-07] MEDS: MULTIVIT-MIN/IRON FUM/FOLIC AC 1 EACH TABLET GT (09:13)
[2023-03-07] MEDS: FAMOTIDINE 20 MG TABLET GT ×2 (09:13→20:36)
[2023-03-07] MEDS: FUROSEMIDE 20 MG TABLET GT (09:13)
[2023-03-07] MEDS: SENNOSIDES 8.6 MG TABLET GT ×2 (09:13→21:00)
--- NOTE | 2023-03-07 15:01 | PC.SS ---
Resident came to visit resident at which time she requested for resident medication list. This SSD called medical records who informed me she can go to medical records to request medication list. Resident Harper was satisfied and said she would go over and request what she needs.
--- NOTE | 2023-03-07 15:06 | PC.SS ---
Room visit: Resident is laying in bed able answer simple yes no questions. Resident is well groomed showing no signs of distress. Resident continues to get visits from his and staff. Resident has no changes in care or condition he will remain in current care as he is ventilator dependent unable to return home due to heavy care regimen.
[2023-03-07] MEDS: INSULIN REGULAR, HUMAN 100 UNIT/ML VIAL SC (17:38)
[2023-03-07] MEDS: INSULIN GLARGINE 100 UNIT/ML INSULN.PEN 14 UNIT SC (17:40)
[2023-03-07] MEDS: DOXAZOSIN 2 MG TABLET 4 MG GT (20:36)
[2023-03-08] VITALS (11 sets, daily range): BP systolic 96–174; BP diastolic 59–81; PULSE 69–78; RESP 2–23; TEMP 36.1–36.4; O2SAT 98–100
[2023-03-08] MEDS: IPRATROPIUM/ALBUTEROL 3 ML AMPUL.NEB INH ×4 (00:35→19:35)
[2023-03-08] MEDS: ASCORBIC ACID 500 MG TABLET GT ×2 (08:04→21:07)
[2023-03-08] MEDS: AMLODIPINE 5 MG TABLET GT (08:04)
[2023-03-08] MEDS: ACETAMINOPHEN 325 MG/10.15 ML 650 MG GT (08:05)
[2023-03-08] MEDS: FUROSEMIDE 20 MG TABLET GT (08:05)
[2023-03-08] MEDS: MULTIVIT-MIN/IRON FUM/FOLIC AC 1 EACH TABLET GT (08:05)
[2023-03-08] MEDS: FAMOTIDINE 20 MG TABLET GT ×2 (08:05→21:08)
[2023-03-08] MEDS: SENNOSIDES 8.6 MG TABLET GT ×2 (08:05→21:08)
--- NOTE | 2023-03-08 11:30 | PD.SAPROG ---
Progress Note - SubAcute DIAGNOSIS (1) Chronic respiratory failure: Status: Chronic (2) Ventilator dependent: Status: Chronic (3) PEG (percutaneous endoscopic gastrostomy) status: Status: Chronic (4) Tracheostomy in place: Status: Chronic SUBJECTIVE Fever:: none Shortness of Breath:: none GI:: no complaints Pain:: none OBJECTIVE Most recent vital signs: Last Vital Signs Temp 97.4 F 03/09/23 05:53 Pulse 69 03/09/23 13:15 Resp 19 03/09/23 13:15 BP 112/73 03/09/23 09:17 Pulse Ox 99 03/09/23 13:15 O2 Del Method Mechanical Ventilation 03/07/23 12:00 FiO2 30 03/09/23 13:15 Neurological:: PVS Speech:: none Answers questions:: no Respiratory:: shallow breathing Cardiovascular: RRR Abdomen: soft and nontender Extremities:: deformities Decubitus:: improved Tracheostomy:: to ventilator Feeding per:: G tube Complaints:: none ASSESSMENT & PLAN Assessment: Not responsive to verbal commands, no cognitive improvement. Diagnosis and treatment reviewed. Ventilator settings reviewed and continued Plan: Current treatment as ongoing
[2023-03-08] MEDS: INSULIN REGULAR, HUMAN 100 UNIT/ML VIAL SC ×2 (12:17→17:55)
[2023-03-08] MEDS: INSULIN GLARGINE 100 UNIT/ML INSULN.PEN 14 UNIT SC (17:55)
[2023-03-08] MEDS: DOXAZOSIN 2 MG TABLET 4 MG GT (21:07)
[2023-03-09] VITALS (8 sets, daily range): BP systolic 112–125; BP diastolic 73–77; PULSE 68–76; RESP 17–22; TEMP 36.1–36.3; O2SAT 98–99
[2023-03-09] MEDS: IPRATROPIUM/ALBUTEROL 3 ML AMPUL.NEB INH ×4 (00:58→19:15)
[2023-03-09 06:18] LABS: Albumin, Serum 3.9 gm/dL (3.4-4.8); Anion Gap 7 (7-16); BUN/Creatinine Ratio 45 Ratio (12-20); Blood Urea Nitrogen 18 mg/dL (9-23); Calcium 9.5 mg/dL (8.3-10.6); Calcium (Corrected) 9.6 mg/dL (8.5-10.1); Carbon Dioxide 28.5 mMol/L (20.0-31.0); Chloride 103 mMol/L (98-107); Creatinine (Component) 0.4 mg/dL (0.6-1.3); Glucose 151 mg/dL (74-106); Glucose,Fasting 151 mg/dL (74-106); Osmolality,Calculated 280 (275-295); Phosphorous 3.3 mg/dL (2.4-5.1); Potassium 3.8 mMol/L (3.4-5.1); Sodium 138 mMol/L (136-145); eGFR > 60 See Note
[2023-03-09] MEDS: AMLODIPINE 5 MG TABLET GT (09:17)
[2023-03-09] MEDS: ASCORBIC ACID 500 MG TABLET GT ×2 (09:18→20:47)
[2023-03-09] MEDS: SENNOSIDES 8.6 MG TABLET GT ×2 (09:18→20:48)
[2023-03-09] MEDS: FAMOTIDINE 20 MG TABLET GT ×2 (09:18→20:48)
[2023-03-09] MEDS: FUROSEMIDE 20 MG TABLET GT (09:18)
[2023-03-09] MEDS: MULTIVIT-MIN/IRON FUM/FOLIC AC 1 EACH TABLET GT (09:18)
--- NOTE | 2023-03-09 10:15 | CHAP ---
Patient was visited by the Spiritual Care Volunteers who also prayed for them. (Volunteers were in the hospital from 09:20-10:15).
[2023-03-09] MEDS: INSULIN REGULAR, HUMAN 100 UNIT/ML VIAL SC ×2 (11:48→17:16)
[2023-03-09] MEDS: INSULIN GLARGINE 100 UNIT/ML INSULN.PEN 14 UNIT SC (17:16)
[2023-03-09] MEDS: DOXAZOSIN 2 MG TABLET 4 MG GT (20:47)
[2023-03-10] VITALS (10 sets, daily range): BP systolic 113–134; BP diastolic 69–83; PULSE 67–86; RESP 14–24; TEMP 36.2–36.5; O2SAT 98–100
[2023-03-10] MEDS: IPRATROPIUM/ALBUTEROL 3 ML AMPUL.NEB INH ×4 (00:50→18:03)
[2023-03-10] MEDS: INSULIN REGULAR, HUMAN 100 UNIT/ML VIAL SC (05:35)
[2023-03-10] MEDS: AMLODIPINE 5 MG TABLET GT (09:26)
[2023-03-10] MEDS: ASCORBIC ACID 500 MG TABLET GT ×2 (09:27→21:01)
[2023-03-10] MEDS: FUROSEMIDE 20 MG TABLET GT (09:27)
[2023-03-10] MEDS: FAMOTIDINE 20 MG TABLET GT ×2 (09:27→21:02)
[2023-03-10] MEDS: ACETAMINOPHEN 325 MG/10.15 ML 650 MG GT (09:28)
[2023-03-10] MEDS: SENNOSIDES 8.6 MG TABLET GT ×2 (09:28→21:02)
[2023-03-10] MEDS: MULTIVIT-MIN/IRON FUM/FOLIC AC 1 EACH TABLET GT (09:28)
--- NOTE | 2023-03-10 13:18 | PC.NURSE ---
Resident completed Bigg x 30 days. Stage 3 to sacrum healed, called RD to notify and asked if Bigg needs to renew or not. No need to continue Bigg at this time per RD.
--- NOTE | 2023-03-10 15:57 | PC.SS ---
Room visit: Resident is laying in bed with head of the bed elevated, he has call ight properly placed. Resident appears comfortable and is well groomed. Resident continues to be awake and answering simple questions with head nod. Resident is not able to make needs known he requires total car ADL's. Resident will remain in current care as he is not ready to DC to SNF or lower level of care. He will continue to be evaluated for any changes in mood, behavior or condition.
[2023-03-10] MEDS: INSULIN GLARGINE 100 UNIT/ML INSULN.PEN 14 UNIT SC (17:09)
[2023-03-10] MEDS: DOXAZOSIN 2 MG TABLET 4 MG GT (21:01)
[2023-03-11] VITALS (8 sets, daily range): BP systolic 116–130; BP diastolic 67–74; PULSE 65–73; RESP 13–20; TEMP 35.9–36.4; O2SAT 97–100
[2023-03-11] MEDS: IPRATROPIUM/ALBUTEROL 3 ML AMPUL.NEB INH ×4 (01:05→18:25)
[2023-03-11] MEDS: AMLODIPINE 5 MG TABLET GT (09:26)
[2023-03-11] MEDS: MULTIVIT-MIN/IRON FUM/FOLIC AC 1 EACH TABLET GT (09:27)
[2023-03-11] MEDS: FAMOTIDINE 20 MG TABLET GT ×2 (09:27→20:32)
[2023-03-11] MEDS: FUROSEMIDE 20 MG TABLET GT (09:27)
[2023-03-11] MEDS: ASCORBIC ACID 500 MG TABLET GT ×2 (09:27→20:30)
[2023-03-11] MEDS: SENNOSIDES 8.6 MG TABLET GT ×2 (09:28→20:32)
--- NOTE | 2023-03-11 09:37 | PC.PT ---
PT eval completed. Patient is referred to RNA/FOOD BEVERAGE MANAGER program. (Pls see PT notes.)
[2023-03-11] MEDS: INSULIN REGULAR, HUMAN 100 UNIT/ML VIAL SC (12:03)
--- NOTE | 2023-03-11 12:46 | PC.NURSE ---
Stage 3 to sacrum healed, order received to do bladder you catheter training received and will monitor for any s/s of urinary retention after you has been discontinued.
[2023-03-11] MEDS: INSULIN GLARGINE 100 UNIT/ML INSULN.PEN 14 UNIT SC (18:11)
[2023-03-11] MEDS: DOXAZOSIN 2 MG TABLET 4 MG GT (20:32)
[2023-03-12] VITALS (9 sets, daily range): BP systolic 124–138; BP diastolic 69–81; PULSE 67–87; RESP 12–21; TEMP 35.8–36.4; O2SAT 99–100
[2023-03-12] MEDS: IPRATROPIUM/ALBUTEROL 3 ML AMPUL.NEB INH ×4 (00:25→20:02)
[2023-03-12] MEDS: AMLODIPINE 5 MG TABLET GT (08:07)
[2023-03-12] MEDS: FAMOTIDINE 20 MG TABLET GT ×2 (08:08→21:26)
[2023-03-12] MEDS: ASCORBIC ACID 500 MG TABLET GT ×2 (08:08→21:25)
[2023-03-12] MEDS: SENNOSIDES 8.6 MG TABLET GT ×2 (08:09→21:26)
[2023-03-12] MEDS: MULTIVIT-MIN/IRON FUM/FOLIC AC 1 EACH TABLET GT (08:09)
[2023-03-12] MEDS: FUROSEMIDE 20 MG TABLET GT (08:09)
[2023-03-12] MEDS: INSULIN REGULAR, HUMAN 100 UNIT/ML VIAL SC ×2 (11:39→17:08)
[2023-03-12] MEDS: INSULIN GLARGINE 100 UNIT/ML INSULN.PEN 14 UNIT SC (17:09)
[2023-03-12] MEDS: DOXAZOSIN 2 MG TABLET 4 MG GT (21:25)
--- NOTE | 2023-03-12 22:33 | ESPR_ITS ---
Progress Note - SubAcute DIAGNOSIS (1) Chronic respiratory failure: Status: Chronic (2) Ventilator dependent: Status: Chronic (3) PEG (percutaneous endoscopic gastrostomy) status: Status: Chronic (4) Tracheostomy in place: Status: Chronic SUBJECTIVE Fever:: none Shortness of Breath:: none GI:: no complaints Pain:: none OBJECTIVE Most recent vital signs: Last Vital Signs Temp 97.1 F 03/16/23 16:00 Pulse 68 03/16/23 19:15 Resp 15 03/16/23 19:15 BP 120/71 03/16/23 16:00 Pulse Ox 97 03/16/23 19:15 O2 Del Method Mechanical Ventilation 03/16/23 06:00 FiO2 30 03/16/23 19:15 Neurological:: awake Speech:: none Answers questions:: no Respiratory:: shallow breathing Cardiovascular: RRR Abdomen: soft and nontender Extremities:: deformities Decubitus:: improved Tracheostomy:: to ventilator Feeding per:: G tube Complaints:: none ASSESSMENT & PLAN Assessment: Pt has certainly been awake and eye tracking some and even tends to attempt a nod sometimes and is certainly no longer in a PVS Diagnosis and treatment reviewed. Ventilator settings reviewed and continued Plan: Current treatment as ongoing
[2023-03-13] VITALS (9 sets, daily range): BP systolic 109–129; BP diastolic 69–85; PULSE 20–81; RESP 12–20; TEMP 36.1–36.4; O2SAT 96–100
[2023-03-13] MEDS: IPRATROPIUM/ALBUTEROL 3 ML AMPUL.NEB INH ×3 (00:46→13:43)
[2023-03-13] MEDS: FAMOTIDINE 20 MG TABLET GT ×2 (09:09→21:29)
[2023-03-13] MEDS: ASCORBIC ACID 500 MG TABLET GT ×2 (09:09→21:29)
[2023-03-13] MEDS: FUROSEMIDE 20 MG TABLET GT (09:09)
[2023-03-13] MEDS: MULTIVIT-MIN/IRON FUM/FOLIC AC 1 EACH TABLET GT (09:09)
[2023-03-13] MEDS: SENNOSIDES 8.6 MG TABLET GT ×2 (09:10→21:30)
[2023-03-13] MEDS: INSULIN GLARGINE 100 UNIT/ML INSULN.PEN 14 UNIT SC (17:40)
[2023-03-13] MEDS: DOXAZOSIN 2 MG TABLET 4 MG GT (21:29)
[2023-03-14] VITALS (9 sets, daily range): BP systolic 115–137; BP diastolic 68–88; PULSE 66–86; RESP 10–20; TEMP 35.5–36.9; O2SAT 98–100
[2023-03-14] MEDS: IPRATROPIUM/ALBUTEROL 3 ML AMPUL.NEB INH ×4 (00:24→18:00)
[2023-03-14] MEDS: AMLODIPINE 5 MG TABLET GT (09:01)
[2023-03-14] MEDS: FAMOTIDINE 20 MG TABLET GT ×2 (09:01→21:10)
[2023-03-14] MEDS: ASCORBIC ACID 500 MG TABLET GT ×2 (09:01→21:09)
[2023-03-14] MEDS: FUROSEMIDE 20 MG TABLET GT (09:01)
[2023-03-14] MEDS: MULTIVIT-MIN/IRON FUM/FOLIC AC 1 EACH TABLET GT (09:02)
[2023-03-14] MEDS: SENNOSIDES 8.6 MG TABLET GT ×2 (09:02→21:10)
[2023-03-14] MEDS: INSULIN REGULAR, HUMAN 100 UNIT/ML VIAL SC ×2 (11:55→17:46)
--- NOTE | 2023-03-14 14:35 | PC.NURSE ---
You catheter removed today at 0600, resident urinated a small amount around 1400, bladder scanner showed 999ml of urine in bladder, made aware and new order for you catheter was obtained.
--- NOTE | 2023-03-14 15:45 | PC.SS ---
Room visit: Resident is laying in bed with head of the bed elevated with call light properly placed. Resident is well groomed with no signs of distress. Resident continues to get daily room visits, not showing any changes in mood or behavior. Resident will remain in current care as there are no changes in care or condition. Resident will continue to be evaluated as appropriate for DC to lower level of care.
[2023-03-14] MEDS: INSULIN GLARGINE 100 UNIT/ML INSULN.PEN 14 UNIT SC (17:47)
[2023-03-14] MEDS: DOXAZOSIN 2 MG TABLET 4 MG GT (21:10)
[2023-03-15] VITALS (8 sets, daily range): BP systolic 105–129; BP diastolic 66–80; PULSE 61–78; RESP 14–20; TEMP 36.1–36.3; O2SAT 98–100
[2023-03-15] MEDS: IPRATROPIUM/ALBUTEROL 3 ML AMPUL.NEB INH ×4 (00:07→19:10)
[2023-03-15] MEDS: FAMOTIDINE 20 MG TABLET GT ×2 (09:37→20:07)
[2023-03-15] MEDS: ASCORBIC ACID 500 MG TABLET GT ×2 (09:37→20:06)
[2023-03-15] MEDS: AMLODIPINE 5 MG TABLET GT (09:37)
[2023-03-15] MEDS: FUROSEMIDE 20 MG TABLET GT (09:38)
[2023-03-15] MEDS: MULTIVIT-MIN/IRON FUM/FOLIC AC 1 EACH TABLET GT (09:38)
[2023-03-15] MEDS: SENNOSIDES 8.6 MG TABLET GT ×2 (09:38→20:07)
[2023-03-15] MEDS: INSULIN REGULAR, HUMAN 100 UNIT/ML VIAL SC (11:40)
[2023-03-15] MEDS: INSULIN GLARGINE 100 UNIT/ML INSULN.PEN 14 UNIT SC (17:34)
[2023-03-15] MEDS: DOXAZOSIN 2 MG TABLET 4 MG GT (20:07)
[2023-03-16] VITALS (9 sets, daily range): BP systolic 120–149; BP diastolic 71–77; PULSE 68–78; RESP 12–18; TEMP 36.2–36.3; O2SAT 97–100
[2023-03-16] MEDS: IPRATROPIUM/ALBUTEROL 3 ML AMPUL.NEB INH ×4 (01:15→19:15)
[2023-03-16] MEDS: INSULIN REGULAR, HUMAN 100 UNIT/ML VIAL SC ×2 (05:32→12:39)
[2023-03-16] MEDS: AMLODIPINE 5 MG TABLET GT (09:15)
[2023-03-16] MEDS: ASCORBIC ACID 500 MG TABLET GT ×2 (09:17→21:08)
[2023-03-16] MEDS: FUROSEMIDE 20 MG TABLET GT (09:17)
[2023-03-16] MEDS: FAMOTIDINE 20 MG TABLET GT ×2 (09:17→21:08)
[2023-03-16] MEDS: MULTIVIT-MIN/IRON FUM/FOLIC AC 1 EACH TABLET GT (09:17)
[2023-03-16] MEDS: SENNOSIDES 8.6 MG TABLET GT ×2 (09:18→21:08)
[2023-03-16] MEDS: INSULIN GLARGINE 100 UNIT/ML INSULN.PEN 14 UNIT SC (17:29)
[2023-03-16] MEDS: DOXAZOSIN 2 MG TABLET 4 MG GT (21:08)
--- NOTE | 2023-03-16 22:38 | PD.SAPROG ---
Progress Note - SubAcute DIAGNOSIS (1) Chronic respiratory failure: Status: Chronic (2) Ventilator dependent: Status: Chronic (3) PEG (percutaneous endoscopic gastrostomy) status: Status: Chronic (4) Tracheostomy in place: Status: Chronic SUBJECTIVE Fever:: none Shortness of Breath:: none GI:: no complaints Pain:: none OBJECTIVE Most recent vital signs: Last Vital Signs Temp 97.1 F 03/16/23 16:00 Pulse 68 03/16/23 19:15 Resp 15 03/16/23 19:15 BP 120/71 03/16/23 16:00 Pulse Ox 97 03/16/23 19:15 O2 Del Method Mechanical Ventilation 03/16/23 06:00 FiO2 30 03/16/23 19:15 Neurological:: awake Speech:: none Answers questions:: no Respiratory:: shallow breathing Cardiovascular: RRR Abdomen: soft and nontender Extremities:: deformities Decubitus:: improved Tracheostomy:: to ventilator Feeding per:: G tube Complaints:: none ASSESSMENT & PLAN Assessment: Pt has certainly been awake and eye tracking some and even tends to attempt a nod sometimes and is certainly no longer in a PVS Diagnosis and treatment reviewed. Ventilator settings reviewed and continued Plan: Current treatment as ongoing
[2023-03-17] VITALS (9 sets, daily range): BP systolic 111–136; BP diastolic 67–84; PULSE 68–79; RESP 12–19; TEMP 36.1–36.7; O2SAT 96–100
[2023-03-17] MEDS: IPRATROPIUM/ALBUTEROL 3 ML AMPUL.NEB INH ×4 (00:40→20:21)
[2023-03-17] MEDS: ASCORBIC ACID 500 MG TABLET GT ×2 (08:46→21:21)
[2023-03-17] MEDS: AMLODIPINE 5 MG TABLET GT (08:46)
[2023-03-17] MEDS: FUROSEMIDE 20 MG TABLET GT (08:46)
[2023-03-17] MEDS: MULTIVIT-MIN/IRON FUM/FOLIC AC 1 EACH TABLET GT (08:46)
[2023-03-17] MEDS: SENNOSIDES 8.6 MG TABLET GT ×2 (08:46→21:21)
[2023-03-17] MEDS: FAMOTIDINE 20 MG TABLET GT ×2 (08:46→21:21)
[2023-03-17] MEDS: INSULIN GLARGINE 100 UNIT/ML INSULN.PEN 14 UNIT SC (17:30)
[2023-03-17] MEDS: DOXAZOSIN 2 MG TABLET 4 MG GT (21:21)
[2023-03-18] VITALS (11 sets, daily range): BP systolic 98–139; BP diastolic 61–79; PULSE 62–81; RESP 11–25; TEMP 36.3–36.6; O2SAT 97–100
[2023-03-18] MEDS: IPRATROPIUM/ALBUTEROL 3 ML AMPUL.NEB INH ×4 (00:02→18:17)
[2023-03-18] MEDS: ASCORBIC ACID 500 MG TABLET GT (08:08)
[2023-03-18] MEDS: MULTIVIT-MIN/IRON FUM/FOLIC AC 1 EACH TABLET GT (08:08)
[2023-03-18] MEDS: SENNOSIDES 8.6 MG TABLET GT ×2 (08:09→21:17)
[2023-03-18] MEDS: FAMOTIDINE 20 MG TABLET GT ×2 (08:09→21:17)
[2023-03-18] MEDS: FUROSEMIDE 20 MG TABLET GT (08:09)
[2023-03-18] MEDS: AMLODIPINE 5 MG TABLET GT (08:09)
--- NOTE | 2023-03-18 14:16 | PC.DIETICIAN ---
Dietitian recommendation: D/C vitamin C and MVM, no wounds present, TF adequate for micronutrient needs.
[2023-03-18] MEDS: INSULIN GLARGINE 100 UNIT/ML INSULN.PEN 14 UNIT SC (17:26)
[2023-03-18] MEDS: DOXAZOSIN 2 MG TABLET 4 MG GT (21:17)
[2023-03-19] VITALS (9 sets, daily range): BP systolic 97–118; BP diastolic 60–68; PULSE 70–76; RESP 15–23; TEMP 35.9–36.4; O2SAT 97–99
[2023-03-19] MEDS: IPRATROPIUM/ALBUTEROL 3 ML AMPUL.NEB INH ×4 (06:02→18:22)
[2023-03-19] MEDS: FAMOTIDINE 20 MG TABLET GT ×2 (08:07→21:22)
[2023-03-19] MEDS: FUROSEMIDE 20 MG TABLET GT (08:07)
[2023-03-19] MEDS: SENNOSIDES 8.6 MG TABLET GT ×2 (08:07→21:22)
[2023-03-19] MEDS: ACETAMINOPHEN 325 MG/10.15 ML 650 MG GT (08:08)
--- NOTE | 2023-03-19 11:56 | PC.SS ---
Room visit: Resident is laying in bed with head of the bed elevated with call light properly placed with no signs of distress. Resident is well groomed and appears comfortable. Resident will continue to receive daily room visits as there are no changes in care or condition.
[2023-03-19] MEDS: INSULIN GLARGINE 100 UNIT/ML INSULN.PEN 14 UNIT SC (17:57)
[2023-03-19] MEDS: INSULIN REGULAR, HUMAN 100 UNIT/ML VIAL SC (17:57)
[2023-03-19] MEDS: DOXAZOSIN 2 MG TABLET 4 MG GT (21:22)
[2023-03-20] VITALS (8 sets, daily range): BP systolic 112–130; BP diastolic 67–75; PULSE 69–80; RESP 12–22; TEMP 35.9–36.7; O2SAT 99–100
[2023-03-20] MEDS: IPRATROPIUM/ALBUTEROL 3 ML AMPUL.NEB INH ×3 (06:00→19:40)
[2023-03-20] MEDS: AMLODIPINE 5 MG TABLET GT (08:00)
[2023-03-20] MEDS: FUROSEMIDE 20 MG TABLET GT (08:01)
[2023-03-20] MEDS: FAMOTIDINE 20 MG TABLET GT ×2 (08:01→20:50)
[2023-03-20] MEDS: SENNOSIDES 8.6 MG TABLET GT ×2 (08:01→20:51)
--- NOTE | 2023-03-20 12:46 | CHAP ---
Patient was visited by the Spiritual Care Volunteer who prayed for them. (Volunteer was in the hospital from 10:30-12:46).
[2023-03-20] MEDS: INSULIN GLARGINE 100 UNIT/ML INSULN.PEN 14 UNIT SC (17:22)
[2023-03-20] MEDS: INSULIN REGULAR, HUMAN 100 UNIT/ML VIAL SC (17:28)
[2023-03-20] MEDS: DOXAZOSIN 2 MG TABLET 4 MG GT (20:50)
[2023-03-20] MEDS: ACETAMINOPHEN 325 MG/10.15 ML 650 MG GT (20:52)
--- NOTE | 2023-03-20 21:27 | ESPR_ITS ---
Progress Note - SubAcute DIAGNOSIS (1) Chronic respiratory failure: Status: Chronic (2) Ventilator dependent: Status: Chronic (3) PEG (percutaneous endoscopic gastrostomy) status: Status: Chronic (4) Tracheostomy in place: Status: Chronic SUBJECTIVE Fever:: none Shortness of Breath:: none GI:: no complaints Pain:: none OBJECTIVE Most recent vital signs: Last Vital Signs Temp 96.7 F L 03/20/23 17:48 Pulse 20 L 03/20/23 19:40 Resp 20 03/20/23 19:40 BP 112/72 03/20/23 17:48 Pulse Ox 100 03/20/23 19:40 O2 Del Method Mechanical Ventilation 03/20/23 17:48 FiO2 30 03/20/23 19:40 Neurological:: awake Speech:: none Answers questions:: no Respiratory:: shallow breathing Cardiovascular: RRR Abdomen: soft and nontender Extremities:: deformities Decubitus:: improved Tracheostomy:: to ventilator Feeding per:: G tube Complaints:: none ASSESSMENT & PLAN Assessment: Pt has certainly been awake and eye tracking some and even tends to attempt a nodsometimes and is certainly no longer in a PVS Diagnosis and treatment reviewed. Ventilator settings reviewed and continued. Not tolerating weaning. Plan: Current treatment as ongoing
[2023-03-21] VITALS (9 sets, daily range): BP systolic 124–137; BP diastolic 58–86; PULSE 14–76; RESP 11–66; TEMP 36.2–36.4; O2SAT 97–100
[2023-03-21] MEDS: IPRATROPIUM/ALBUTEROL 3 ML AMPUL.NEB INH ×4 (00:56→19:16)
[2023-03-21] MEDS: FAMOTIDINE 20 MG TABLET GT ×2 (09:17→20:46)
[2023-03-21] MEDS: AMLODIPINE 5 MG TABLET GT (09:17)
[2023-03-21] MEDS: FUROSEMIDE 20 MG TABLET GT (09:18)
[2023-03-21] MEDS: SENNOSIDES 8.6 MG TABLET GT ×2 (09:18→20:46)
[2023-03-21] MEDS: INSULIN GLARGINE 100 UNIT/ML INSULN.PEN 14 UNIT SC (17:00)
[2023-03-21] MEDS: DOXAZOSIN 2 MG TABLET 4 MG GT (20:45)
[2023-03-22] VITALS (9 sets, daily range): BP systolic 99–150; BP diastolic 64–86; PULSE 68–76; RESP 12–20; TEMP 36.1–36.3; O2SAT 99–100
[2023-03-22] MEDS: IPRATROPIUM/ALBUTEROL 3 ML AMPUL.NEB INH ×4 (01:35→19:19)
[2023-03-22] MEDS: INSULIN REGULAR, HUMAN 100 UNIT/ML VIAL SC ×2 (05:33→17:31)
[2023-03-22] MEDS: AMLODIPINE 5 MG TABLET GT (09:26)
[2023-03-22] MEDS: FAMOTIDINE 20 MG TABLET GT ×2 (09:27→21:10)
[2023-03-22] MEDS: SENNOSIDES 8.6 MG TABLET GT ×2 (09:27→21:10)
[2023-03-22] MEDS: FUROSEMIDE 20 MG TABLET GT (09:27)
[2023-03-22] MEDS: INSULIN GLARGINE 100 UNIT/ML INSULN.PEN 14 UNIT SC (17:30)
[2023-03-22] MEDS: DOXAZOSIN 2 MG TABLET 4 MG GT (21:09)
[2023-03-23] VITALS (10 sets, daily range): BP systolic 117–132; BP diastolic 72–79; PULSE 71–89; RESP 14–21; TEMP 36.1–36.4; O2SAT 98–100
[2023-03-23] MEDS: IPRATROPIUM/ALBUTEROL 3 ML AMPUL.NEB INH ×4 (01:13→19:03)
--- NOTE | 2023-03-23 03:35 | PC.RT ---
change vent water bag at this time, trach collar remains secure and trach patent spo2 97%
[2023-03-23] MEDS: INSULIN REGULAR, HUMAN 100 UNIT/ML VIAL SC ×2 (05:39→17:45)
[2023-03-23] MEDS: AMLODIPINE 5 MG TABLET GT (09:37)
[2023-03-23] MEDS: SENNOSIDES 8.6 MG TABLET GT ×2 (09:38→20:27)
[2023-03-23] MEDS: FUROSEMIDE 20 MG TABLET GT (09:38)
[2023-03-23] MEDS: FAMOTIDINE 20 MG TABLET GT ×2 (09:38→20:27)
[2023-03-23] MEDS: INSULIN GLARGINE 100 UNIT/ML INSULN.PEN 14 UNIT SC (17:44)
[2023-03-23] MEDS: DOXAZOSIN 2 MG TABLET 4 MG GT (20:26)
[2023-03-24] VITALS (9 sets, daily range): BP systolic 122–135; BP diastolic 71–78; PULSE 65–82; RESP 12–22; TEMP 36.2–36.6; O2SAT 99–100
[2023-03-24] MEDS: IPRATROPIUM/ALBUTEROL 3 ML AMPUL.NEB INH ×3 (00:16→23:50)
[2023-03-24] MEDS: INSULIN REGULAR, HUMAN 100 UNIT/ML VIAL SC (05:13)
--- NOTE | 2023-03-24 06:44 | PC.NURSE ---
Resident noted with low output, with yellow urine draining to gravity. F/C irrigation attempted and met with resistance. Charge nurse notified and F/C replaced with 1000cc of immediate return of yellow urine with sediment. F/C 16F with 10cc balloon left in place. Charge nurse notified. Resident tolerated well.
[2023-03-24 09:15] LABS: Glucose,Fasting 179 mg/dL (74-106)
[2023-03-24] MEDS: AMLODIPINE 5 MG TABLET GT (09:33)
[2023-03-24] MEDS: FUROSEMIDE 20 MG TABLET GT (09:34)
[2023-03-24] MEDS: FAMOTIDINE 20 MG TABLET GT ×2 (09:34→21:40)
[2023-03-24] MEDS: SENNOSIDES 8.6 MG TABLET GT ×2 (09:35→21:40)
--- NOTE | 2023-03-24 11:20 | ESPR_ITS ---
Progress Note - SubAcute DIAGNOSIS (1) Chronic respiratory failure: Status: Chronic (2) Ventilator dependent: Status: Chronic (3) PEG (percutaneous endoscopic gastrostomy) status: Status: Chronic (4) Tracheostomy in place: Status: Chronic SUBJECTIVE Fever:: none Shortness of Breath:: none GI:: no complaints Pain:: none OBJECTIVE Most recent vital signs: Last Vital Signs Temp 97.1 F 03/24/23 18:00 Pulse 66 03/24/23 23:50 Resp 18 03/24/23 23:50 BP 130/74 03/24/23 18:00 Pulse Ox 99 03/24/23 23:50 O2 Del Method Mechanical Ventilation 03/24/23 18:00 FiO2 28 03/24/23 23:50 Neurological:: awake Speech:: none Answers questions:: no Respiratory:: shallow breathing Cardiovascular: RRR Abdomen: soft and nontender Extremities:: deformities Decubitus:: improved Tracheostomy:: to ventilator Feeding per:: G tube Complaints:: none ASSESSMENT & PLAN Assessment: Pt. has certainly been awake and eye tracking some and even tends to attempt a nod sometimes Diagnosis and treatment reviewed. Ventilator settings reviewed and pt started on weaning with Pressure support , seems to be tolerating it well, hence continued firstly during daytime. Plan: Current treatment as ongoing
[2023-03-24] MEDS: INSULIN GLARGINE 100 UNIT/ML INSULN.PEN 14 UNIT SC (17:29)
[2023-03-24] MEDS: DOXAZOSIN 2 MG TABLET 4 MG GT (21:40)
[2023-03-25] VITALS (8 sets, daily range): BP systolic 98–138; BP diastolic 64–79; PULSE 75–106; RESP 16–27; TEMP 36.1–36.7; O2SAT 99–100
[2023-03-25] MEDS: INSULIN REGULAR, HUMAN 100 UNIT/ML VIAL SC ×2 (00:29→11:54)
[2023-03-25] MEDS: IPRATROPIUM/ALBUTEROL 3 ML AMPUL.NEB INH ×4 (07:10→23:35)
[2023-03-25] MEDS: FUROSEMIDE 20 MG TABLET GT (09:50)
[2023-03-25] MEDS: FAMOTIDINE 20 MG TABLET GT ×2 (09:50→20:07)
[2023-03-25] MEDS: SENNOSIDES 8.6 MG TABLET GT ×2 (09:50→20:07)
[2023-03-25] MEDS: AMLODIPINE 5 MG TABLET GT (09:50)
[2023-03-25] MEDS: INSULIN GLARGINE 100 UNIT/ML INSULN.PEN 14 UNIT SC (17:15)
[2023-03-25] MEDS: DOXAZOSIN 2 MG TABLET 4 MG GT (20:07)
[2023-03-26] VITALS (7 sets, daily range): BP systolic 103–134; BP diastolic 66–82; PULSE 73–90; RESP 14–23; TEMP 36.2–37; O2SAT 99–100
[2023-03-26] MEDS: INSULIN REGULAR, HUMAN 100 UNIT/ML VIAL SC ×2 (00:01→11:57)
[2023-03-26] MEDS: IPRATROPIUM/ALBUTEROL 3 ML AMPUL.NEB INH ×3 (07:05→20:57)
[2023-03-26] MEDS: FUROSEMIDE 20 MG TABLET GT (08:26)
[2023-03-26] MEDS: FAMOTIDINE 20 MG TABLET GT ×2 (08:26→21:15)
[2023-03-26] MEDS: SENNOSIDES 8.6 MG TABLET GT ×2 (08:26→21:15)
[2023-03-26] MEDS: AMLODIPINE 5 MG TABLET GT (08:26)
[2023-03-26] MEDS: INSULIN GLARGINE 100 UNIT/ML INSULN.PEN 14 UNIT SC (17:24)
[2023-03-26] MEDS: DOXAZOSIN 2 MG TABLET 4 MG GT (21:14)
[2023-03-27] VITALS (9 sets, daily range): BP systolic 106–132; BP diastolic 62–76; PULSE 74–76; RESP 12–21; TEMP 36.1–36.6; O2SAT 97–100
[2023-03-27] MEDS: IPRATROPIUM/ALBUTEROL 3 ML AMPUL.NEB INH ×4 (01:37→19:35)
[2023-03-27] MEDS: SENNOSIDES 8.6 MG TABLET GT ×2 (09:23→20:40)
[2023-03-27] MEDS: FAMOTIDINE 20 MG TABLET GT ×2 (09:23→20:40)
[2023-03-27] MEDS: AMLODIPINE 5 MG TABLET GT (09:23)
[2023-03-27] MEDS: FUROSEMIDE 20 MG TABLET GT (09:23)
[2023-03-27] MEDS: ACETAMINOPHEN 325 MG/10.15 ML 650 MG GT (09:31)
[2023-03-27] MEDS: INSULIN GLARGINE 100 UNIT/ML INSULN.PEN 14 UNIT SC (17:26)
[2023-03-27] MEDS: DOXAZOSIN 2 MG TABLET 4 MG GT (20:39)
[2023-03-27] MEDS: INSULIN REGULAR, HUMAN 100 UNIT/ML VIAL SC (23:35)
[2023-03-28] VITALS (9 sets, daily range): BP systolic 104–128; BP diastolic 68–84; PULSE 76–88; RESP 20–26; TEMP 36.1–36.6; O2SAT 93–99
[2023-03-28] MEDS: IPRATROPIUM/ALBUTEROL 3 ML AMPUL.NEB INH ×4 (01:15→18:48)
[2023-03-28] MEDS: INSULIN REGULAR, HUMAN 100 UNIT/ML VIAL SC ×2 (05:37→16:59)
[2023-03-28] MEDS: FAMOTIDINE 20 MG TABLET GT ×2 (09:00→20:33)
[2023-03-28] MEDS: AMLODIPINE 5 MG TABLET GT (09:00)
[2023-03-28] MEDS: SENNOSIDES 8.6 MG TABLET GT ×2 (09:01→20:33)
[2023-03-28] MEDS: FUROSEMIDE 20 MG TABLET GT (09:01)
--- NOTE | 2023-03-28 12:54 | PC.SS ---
Room visit: Resident is laying in bed with head of the bed elevated with call light properly placed. Resident is well groomed with no signs of distress, he is alert and responding to simple yes no questions with hand gestures and facial expressions. Resident mood is adequate with no changes. Resident continues to receive daily room visits and will be monitored for any changes in care or condition. Plan is for resident to remain in current care as resident remains total care unable to make needs known.
--- NOTE | 2023-03-28 13:55 | CHAP ---
Patient was visited by the Spiritual Care Volunteer who prayed for him. (Volunteer was in the hospital from 10:20-11:20; 12:45-13:55).
[2023-03-28] MEDS: INSULIN GLARGINE 100 UNIT/ML INSULN.PEN 14 UNIT SC (16:58)
[2023-03-28] MEDS: DOXAZOSIN 2 MG TABLET 4 MG GT (20:33)
--- NOTE | 2023-03-28 22:54 | ESPR_ITS ---
Progress Note - SubAcute DIAGNOSIS (1) Chronic respiratory failure: Status: Chronic (2) Ventilator dependent: Status: Chronic (3) PEG (percutaneous endoscopic gastrostomy) status: Status: Chronic (4) Tracheostomy in place: Status: Chronic SUBJECTIVE Fever:: none Shortness of Breath:: none GI:: no complaints Pain:: none OBJECTIVE Most recent vital signs: Last Vital Signs Temp 97.8 F 03/28/23 17:42 Pulse 81 03/28/23 18:48 Resp 22 H 03/28/23 18:48 BP 128/84 03/28/23 17:42 Pulse Ox 99 03/28/23 18:48 O2 Del Method Mechanical Ventilation 03/28/23 17:42 FiO2 25 03/28/23 18:48 Neurological:: awake Speech:: none Answers questions:: no Respiratory:: shallow breathing Cardiovascular: RRR Abdomen: soft and nontender Extremities:: deformities Decubitus:: improved Tracheostomy:: to ventilator Feeding per:: G tube Complaints:: none ASSESSMENT & PLAN Assessment: Pt. has certainly been awake and eye tracking some and even tends to attempt a nod sometimes Diagnosis and treatment reviewed. Ventilator settings reviewed and pt started on weaning with Pressure support , seems to be tolerating it well, hence continued firstly during daytime. Plan: Current treatment as ongoing
[2023-03-29] VITALS (9 sets, daily range): BP systolic 111–139; BP diastolic 69–82; PULSE 73–85; RESP 13–22; TEMP 36.1–36.5; O2SAT 95–99
[2023-03-29] MEDS: IPRATROPIUM/ALBUTEROL 3 ML AMPUL.NEB INH ×4 (00:15→18:35)
[2023-03-29] MEDS: SENNOSIDES 8.6 MG TABLET GT ×2 (08:52→20:14)
[2023-03-29] MEDS: FAMOTIDINE 20 MG TABLET GT ×2 (08:52→20:14)
[2023-03-29] MEDS: FUROSEMIDE 20 MG TABLET GT (08:52)
[2023-03-29] MEDS: AMLODIPINE 5 MG TABLET GT (08:52)
[2023-03-29] MEDS: INSULIN GLARGINE 100 UNIT/ML INSULN.PEN 14 UNIT SC (17:34)
[2023-03-29] MEDS: INSULIN REGULAR, HUMAN 100 UNIT/ML VIAL SC (17:35)
[2023-03-29] MEDS: DOXAZOSIN 2 MG TABLET 4 MG GT (20:14)
[2023-03-30] VITALS (10 sets, daily range): BP systolic 107–140; BP diastolic 61–80; PULSE 70–85; RESP 15–24; TEMP 35.9–36.8; O2SAT 97–99
[2023-03-30] MEDS: IPRATROPIUM/ALBUTEROL 3 ML AMPUL.NEB INH ×4 (01:06→18:35)
[2023-03-30] MEDS: INSULIN REGULAR, HUMAN 100 UNIT/ML VIAL SC ×3 (05:50→17:04)
[2023-03-30] MEDS: FUROSEMIDE 20 MG TABLET GT (08:06)
[2023-03-30] MEDS: FAMOTIDINE 20 MG TABLET GT ×2 (08:06→21:30)
[2023-03-30] MEDS: AMLODIPINE 5 MG TABLET GT (08:06)
[2023-03-30] MEDS: SENNOSIDES 8.6 MG TABLET GT ×2 (08:07→21:30)
[2023-03-30] MEDS: INSULIN GLARGINE 100 UNIT/ML INSULN.PEN 14 UNIT SC (17:04)
[2023-03-30] MEDS: DOXAZOSIN 2 MG TABLET 4 MG GT (21:39)
[2023-03-31] VITALS (11 sets, daily range): BP systolic 100–126; BP diastolic 66–76; PULSE 71–85; RESP 16–22; TEMP 36–36.4; O2SAT 97–100
[2023-03-31] MEDS: IPRATROPIUM/ALBUTEROL 3 ML AMPUL.NEB INH ×4 (01:10→19:30)
[2023-03-31] MEDS: AMLODIPINE 5 MG TABLET GT (09:08)
[2023-03-31] MEDS: FAMOTIDINE 20 MG TABLET GT ×2 (09:08→21:20)
[2023-03-31] MEDS: FUROSEMIDE 20 MG TABLET GT (09:09)
[2023-03-31] MEDS: SENNOSIDES 8.6 MG TABLET GT ×2 (09:09→21:20)
[2023-03-31] MEDS: INSULIN REGULAR, HUMAN 100 UNIT/ML VIAL SC ×2 (12:04→23:38)
[2023-03-31] MEDS: INSULIN GLARGINE 100 UNIT/ML INSULN.PEN 14 UNIT SC (17:23)
[2023-03-31] MEDS: DOXAZOSIN 2 MG TABLET 4 MG GT (21:20)
[2023-04-01] VITALS (10 sets, daily range): BP systolic 105–138; BP diastolic 68–81; PULSE 69–87; RESP 12–21; TEMP 36.1–36.6; O2SAT 96–100
[2023-04-01] MEDS: IPRATROPIUM/ALBUTEROL 3 ML AMPUL.NEB INH ×4 (01:17→19:05)
[2023-04-01] MEDS: FAMOTIDINE 20 MG TABLET GT ×2 (07:59→20:58)
[2023-04-01] MEDS: SENNOSIDES 8.6 MG TABLET GT ×2 (08:00→20:58)
[2023-04-01] MEDS: FUROSEMIDE 20 MG TABLET GT (08:00)
[2023-04-01] MEDS: INSULIN REGULAR, HUMAN 100 UNIT/ML VIAL SC (11:57)
[2023-04-01] MEDS: INSULIN GLARGINE 100 UNIT/ML INSULN.PEN 14 UNIT SC (17:57)
[2023-04-01] MEDS: DOXAZOSIN 2 MG TABLET 4 MG GT (20:58)
--- NOTE | 2023-04-01 22:23 | ESPR_ITS ---
Progress Note - SubAcute DIAGNOSIS (1) Chronic respiratory failure: Status: Chronic (2) Ventilator dependent: Status: Chronic (3) PEG (percutaneous endoscopic gastrostomy) status: Status: Chronic (4) Tracheostomy in place: Status: Chronic SUBJECTIVE Fever:: none Shortness of Breath:: none GI:: no complaints Pain:: none OBJECTIVE Most recent vital signs: Last Vital Signs Temp 97 F 04/01/23 18:00 Pulse 75 04/01/23 19:05 Resp 12 04/01/23 19:05 BP 122/70 04/01/23 18:00 Pulse Ox 100 04/01/23 19:05 O2 Del Method Mechanical Ventilation 03/31/23 17:39 FiO2 25 04/01/23 19:05 Neurological:: awake Speech:: none Answers questions:: no Respiratory:: shallow breathing Cardiovascular: RRR Abdomen: soft and nontender Extremities:: deformities Decubitus:: improved Tracheostomy:: to ventilator Feeding per:: G tube Complaints:: none ASSESSMENT & PLAN Assessment: Pt. has certainly been awake and eye tracking some and even tends to attempt a nod sometimes Diagnosis and treatment reviewed. Ventilator settings reviewed and pt started on weaning with Pressure support , seems to be tolerating it well, hence continued firstly during daytime. Plan: Current treatment as ongoing
[2023-04-02] VITALS (12 sets, daily range): BP systolic 120–152; BP diastolic 62–87; PULSE 70–92; RESP 9–21; TEMP 36.1–36.5; O2SAT 98–100
[2023-04-02] MEDS: IPRATROPIUM/ALBUTEROL 3 ML AMPUL.NEB INH ×4 (00:30→19:15)
--- NOTE | 2023-04-02 03:36 | PC.RT ---
vent alarming high pressure, pt coughing, suction small amount of thick cream sputum, empty water trap, pip pressure improved.
[2023-04-02] MEDS: INSULIN REGULAR, HUMAN 100 UNIT/ML VIAL SC ×2 (05:51→20:01)
[2023-04-02] MEDS: FAMOTIDINE 20 MG TABLET GT ×2 (10:30→20:20)
[2023-04-02] MEDS: SENNOSIDES 8.6 MG TABLET GT ×2 (10:45→20:20)
[2023-04-02] MEDS: AMLODIPINE 5 MG TABLET GT (10:45)
[2023-04-02] MEDS: FUROSEMIDE 20 MG TABLET GT (10:45)
--- NOTE | 2023-04-02 17:40 | PC.CWCCOMPLE ---
Checkering Machine Adjuster Pharmacist MRR
[2023-04-02] MEDS: DOXAZOSIN 2 MG TABLET 4 MG GT (20:20)
[2023-04-03] VITALS (10 sets, daily range): BP systolic 102–173; BP diastolic 67–89; PULSE 71–93; RESP 14–25; TEMP 36.1–36.6; O2SAT 98–100
[2023-04-03] MEDS: IPRATROPIUM/ALBUTEROL 3 ML AMPUL.NEB INH ×4 (00:35→19:15)
[2023-04-03] MEDS: AMLODIPINE 5 MG TABLET GT (09:06)
[2023-04-03] MEDS: SENNOSIDES 8.6 MG TABLET GT ×2 (09:06→20:14)
[2023-04-03] MEDS: FAMOTIDINE 20 MG TABLET GT ×2 (09:06→20:14)
[2023-04-03] MEDS: FUROSEMIDE 20 MG TABLET GT (09:06)
--- NOTE | 2023-04-03 14:33 | CHAP ---
11:00 AM Visited by spiritual care volunteer provided prayer for Patient.
[2023-04-03] MEDS: INSULIN GLARGINE 100 UNIT/ML INSULN.PEN 14 UNIT SC (17:31)
[2023-04-03] MEDS: DOXAZOSIN 2 MG TABLET 4 MG GT (20:14)
[2023-04-03] MEDS: ACETAMINOPHEN 325 MG/10.15 ML 650 MG GT (20:15)
[2023-04-04] VITALS (10 sets, daily range): BP systolic 117–159; BP diastolic 70–95; PULSE 73–81; RESP 14–20; TEMP 36.2–36.5; O2SAT 96–100
[2023-04-04] MEDS: IPRATROPIUM/ALBUTEROL 3 ML AMPUL.NEB INH ×4 (00:40→18:07)
[2023-04-04] MEDS: FAMOTIDINE 20 MG TABLET GT ×2 (09:45→20:24)
[2023-04-04] MEDS: SENNOSIDES 8.6 MG TABLET GT ×2 (09:45→20:24)
[2023-04-04] MEDS: AMLODIPINE 5 MG TABLET GT (09:45)
[2023-04-04] MEDS: FUROSEMIDE 20 MG TABLET GT (09:45)
[2023-04-04] MEDS: ACETAMINOPHEN 325 MG/10.15 ML 650 MG GT (09:46)
--- NOTE | 2023-04-04 09:58 | PC.RT ---
Per Dr Diaz, placed pt on Spontaneous mode with a PS-8, PEEP+5
[2023-04-04] MEDS: INSULIN REGULAR, HUMAN 100 UNIT/ML VIAL SC ×2 (12:46→23:21)
--- NOTE | 2023-04-04 14:52 | PC.SS ---
Room visit: Resident is laying in bed with head of the bed elevated with call light properly placed. Resident is alert and able to answer simple yes no questions with head nod, he also uses hand gestures to answer. Resident is not showing any changes in mood or behavior. Resident will remain in current care Until DC goals are met to return home. This SSD will continue to make daily contact and offer support as needed.
--- NOTE | 2023-04-04 15:31 | PC.SS ---
DC Plan: This SSD spoke with resident Harper who stated she would like tpo take resident home once he is off the vent. Resident stated she has a preferred home health as she used this home health for him before and was pleased. Preferred home health is [facility]. Harper stated she will need a bed and w/chair at home for him. This SSD will continue to get updates from RT regarding respiratory status and will work towards the goal of DC to home once medically cleared by .
[2023-04-04] MEDS: INSULIN GLARGINE 100 UNIT/ML INSULN.PEN 14 UNIT SC (17:38)
[2023-04-04] MEDS: DOXAZOSIN 2 MG TABLET 4 MG GT (20:23)
[2023-04-05] VITALS (11 sets, daily range): BP systolic 119–150; BP diastolic 70–83; PULSE 72–89; RESP 16–22; TEMP 36.3–37.1; O2SAT 97–100
[2023-04-05] MEDS: IPRATROPIUM/ALBUTEROL 3 ML AMPUL.NEB INH ×4 (00:37→18:25)
[2023-04-05] MEDS: AMLODIPINE 5 MG TABLET GT (09:13)
[2023-04-05] MEDS: FUROSEMIDE 20 MG TABLET GT (09:14)
[2023-04-05] MEDS: SENNOSIDES 8.6 MG TABLET GT ×2 (09:14→20:01)
[2023-04-05] MEDS: FAMOTIDINE 20 MG TABLET GT ×2 (09:14→20:01)
[2023-04-05] MEDS: INSULIN GLARGINE 100 UNIT/ML INSULN.PEN 14 UNIT SC (17:51)
[2023-04-05] MEDS: DOXAZOSIN 2 MG TABLET 4 MG GT (20:01)
--- NOTE | 2023-04-05 22:44 | ESPR_ITS ---
Progress Note - SubAcute SUBJECTIVE Fever:: none Shortness of Breath:: none GI:: no complaints Pain:: none OBJECTIVE Most recent vital signs: Last Vital Signs Temp 97.3 F 04/07/23 18:00 Pulse 89 04/07/23 19:00 Resp 24 H 04/07/23 19:00 BP 119/69 04/07/23 18:00 Pulse Ox 100 04/07/23 19:00 O2 Del Method Mechanical Ventilation 04/07/23 06:00 FiO2 25 04/07/23 19:00 Neurological:: awake Speech:: none Answers questions:: no Respiratory:: shallow breathing Cardiovascular: RRR Abdomen: soft and nontender Extremities:: deformities Decubitus:: improved Tracheostomy:: to ventilator Feeding per:: G tube Complaints:: none ASSESSMENT & PLAN Assessment: Pt. has certainly been awake and eye tracking some and even tends to attempt a nod sometimes Diagnosis and treatment reviewed. Ventilator settings reviewed and pt started on weaning with Pressure support , seems to be tolerating it well, hence continued firstly during daytime. Plan: Current treatment as ongoing
[2023-04-06] VITALS (12 sets, daily range): BP systolic 109–146; BP diastolic 69–81; PULSE 69–110; RESP 16–36; TEMP 36.2–36.9; O2SAT 96–100
[2023-04-06] MEDS: IPRATROPIUM/ALBUTEROL 3 ML AMPUL.NEB INH ×5 (00:35→18:15)
[2023-04-06] MEDS: SENNOSIDES 8.6 MG TABLET GT ×2 (09:40→20:09)
[2023-04-06] MEDS: FAMOTIDINE 20 MG TABLET GT ×2 (09:40→20:09)
[2023-04-06] MEDS: FUROSEMIDE 20 MG TABLET GT (09:40)
[2023-04-06] MEDS: INSULIN REGULAR, HUMAN 100 UNIT/ML VIAL SC ×2 (12:03→17:16)
[2023-04-06] MEDS: INSULIN GLARGINE 100 UNIT/ML INSULN.PEN 14 UNIT SC (17:16)
[2023-04-06] MEDS: ACETAMINOPHEN 325 MG/10.15 ML 650 MG GT (20:09)
[2023-04-06] MEDS: DOXAZOSIN 2 MG TABLET 4 MG GT (20:09)
[2023-04-07] VITALS (11 sets, daily range): BP systolic 111–121; BP diastolic 69–75; PULSE 75–96; RESP 18–30; TEMP 36.3–36.7; O2SAT 96–100
[2023-04-07] MEDS: IPRATROPIUM/ALBUTEROL 3 ML AMPUL.NEB INH ×4 (00:23→19:00)
--- NOTE | 2023-04-07 01:23 | PC.RT ---
vent alarming partial occlusion continuously, assessed pt, spo2 99%, RR 26, assessed circuit, no kinks or condensation, changed the expiratory filter, vent not alarming, issue resolved.
[2023-04-07] MEDS: INSULIN REGULAR, HUMAN 100 UNIT/ML VIAL SC ×2 (06:13→17:09)
[2023-04-07] MEDS: AMLODIPINE 5 MG TABLET GT (08:02)
[2023-04-07] MEDS: FAMOTIDINE 20 MG TABLET GT ×2 (08:03→20:32)
[2023-04-07] MEDS: SENNOSIDES 8.6 MG TABLET GT ×2 (08:03→20:32)
[2023-04-07] MEDS: FUROSEMIDE 20 MG TABLET GT (08:03)
[2023-04-07] MEDS: INSULIN GLARGINE 100 UNIT/ML INSULN.PEN 14 UNIT SC (17:09)
[2023-04-07] MEDS: DOXAZOSIN 2 MG TABLET 4 MG GT (20:32)
--- NOTE | 2023-04-07 22:44 | PD.SAPROG ---
Progress Note - SubAcute SUBJECTIVE Fever:: none Shortness of Breath:: none GI:: no complaints Pain:: none OBJECTIVE Most recent vital signs: Last Vital Signs Temp 97.3 F 04/07/23 18:00 Pulse 89 04/07/23 19:00 Resp 24 H 04/07/23 19:00 BP 119/69 04/07/23 18:00 Pulse Ox 100 04/07/23 19:00 O2 Del Method Mechanical Ventilation 04/07/23 06:00 FiO2 25 04/07/23 19:00 Neurological:: awake Speech:: none Answers questions:: no Respiratory:: shallow breathing Cardiovascular: RRR Abdomen: soft and nontender Extremities:: deformities Decubitus:: improved Tracheostomy:: to ventilator Feeding per:: G tube Complaints:: none ASSESSMENT & PLAN Assessment: Pt. has certainly been awake and eye tracking some and even tends to attempt a nod sometimes Diagnosis and treatment reviewed. Ventilator settings reviewed and pt started on weaning with Pressure support , seems to be tolerating it well, hence continued firstly during daytime. Plan: Current treatment as ongoing
[2023-04-08 00:50] VITALS: PULSE 87; PULSE 90; RESP 26; O2SAT 100; O2SAT 96
[2023-04-08] MEDS: IPRATROPIUM/ALBUTEROL 3 ML AMPUL.NEB INH ×4 (00:50→18:05)
[2023-04-08 05:51] VITALS: BP 133/63; PULSE 87; RESP 24; TEMP 36.3; O2SAT 99
[2023-04-08 07:30] VITALS: PULSE 88; RESP 25; RESP 26; O2SAT 96
[2023-04-08 07:52] LABS: Glucose,Fasting 167 mg/dL (74-106)
[2023-04-08 09:14] VITALS: BP 118/76; PULSE 84
[2023-04-08] MEDS: AMLODIPINE 5 MG TABLET GT (09:14)
[2023-04-08] MEDS: FAMOTIDINE 20 MG TABLET GT ×2 (09:15→21:46)
[2023-04-08] MEDS: FUROSEMIDE 20 MG TABLET GT (09:15)
[2023-04-08] MEDS: SENNOSIDES 8.6 MG TABLET GT ×2 (09:15→21:46)
[2023-04-08] MEDS: INSULIN REGULAR, HUMAN 100 UNIT/ML VIAL SC ×3 (11:45→23:43)
[2023-04-08 13:42] VITALS: PULSE 79; RESP 30; RESP 37; O2SAT 97
[2023-04-08 18:05] VITALS: PULSE 83; PULSE 89; RESP 30; RESP 37; O2SAT 100; O2SAT 98
[2023-04-08] MEDS: INSULIN GLARGINE 100 UNIT/ML INSULN.PEN 14 UNIT SC (18:22)
[2023-04-08] MEDS: DOXAZOSIN 2 MG TABLET 4 MG GT (21:46)
[2023-04-09] VITALS: BP 121/70; PULSE 94; RESP 30; TEMP 36.3
[2023-04-09 00:05] VITALS: PULSE 84; PULSE 96; RESP 40; RESP 43; O2SAT 100; O2SAT 99
[2023-04-09] MEDS: IPRATROPIUM/ALBUTEROL 3 ML AMPUL.NEB INH (00:05)
[2023-04-09 01:21] VITALS: TEMP 38.8
[2023-04-09] MEDS: ACETAMINOPHEN 325 MG/10.15 ML 650 MG GT (01:21)
--- NOTE | 2023-04-09 06:42 | PC.NURSE ---
Resident noted with a Temp of 101.9 per rectal at 01:20, PX=729, WD=074/78, RR 45 O2 sat 91% , not responsive as he usually was. Continuous cooling measures done, Tylenol 650 mg given per GT. At 01:23. At 01:45 taken to ER per bed accompanied by RT, RN, and BREWERY PUMPER to Room 7. At 02:11 called and talked to Harper, , was notified. Will continue to follow up for update.
--- NOTE | 2023-04-09 09:00 | PC.NURSE ---
Notified patient's family Milagros about res. admitted to ICU room 257.
[2023-04-11 13:19] VITALS: BP 127/82; PULSE 85; RESP 28; TEMP 36.4; O2SAT 100
[2023-04-11 13:21] VITALS: PULSE 84; RESP 35; O2SAT 99
--- NOTE | 2023-04-11 14:14 | PC.RT ---
late post. at 1321 i received pt from icu. transported by rt jameson. pt back on vent by rt jameson. did a vent check. per jameson no tx given due to pt only having prn orders in icu. no distress noted on pt and vitals with in normal range.
--- NOTE | 2023-04-11 14:33 | PC.SS ---
Resident returned from acute care, he will be monitored and will be offered daily room visits for support.
--- NOTE | 2023-04-11 14:42 | PD.ADDDSCHGE ---
Addendum Discharge Addendum Date of report being addended: 04/11/23 Narrative: Fijian-speaking 62M with PMHx cerebral aneurysm, CVA with R-sided deficits, possible anoxic brain injury, CHRF s/p trach/PEG, neurogenic bladder, HTN, DM2 (Apr 2023 A1c 5.8), past EtOH abuse presented to the ED from [facility]? subacute facility agile coach on 04/09/2023 for fever, increased WOB. Per RN, Jenkins was apparently incorrectly inserted into patient?s foreskin at the subacute facility resulting in urinary retention (patient was scheduled to start bladder training this week, however was delayed d/t sacral decubitus ulcer which is healing). A new Jenkins was inserted on arrival in the ED which produced 1.6L of milky urine followed by some gross hematuria several hours later. Patient was admitted to the ICU for septic shock with LA 2/2 Proteus mirabilis bacteremia/UTI/VAP (BCx/UCx/Sputum cxs all showed same organism), in the setting of obstructive LUCI with nonobstructive cystoureterolithiasis noted per CT, & B/L PNA R>L noted per CT-chest. Patient received CTX/Azithro x 1 in the ED (04/09), IV Zosyn (04/09-04/11) & Vanc (04/09-04/10), pressor has been weaned off. Uro Dr Carrasco consulted, noted 2mm non-obstructing L ureteral stone with minimal hydronephrosis not requiring intervention at this time. Patient is at baseline trach/vent settings with good UOP via Jenkins. Inflammatory markers have downtrended. Patient responds appropriately to Y/N questions & basic requests, denies discomfort or anxiety. Per cx ID/EAN, transitioned patient to IV CTX x 2 wks, & patient is stable to be d/pawan back to the Subacute facility at [facility]. On behalf of our team, we thank you for the opportunity to care for this patient, we wish Mr Ferreira the very best. Susan Mazariegos, IM PGY-3 Patient seen, evaluated with supervising machine rough rounder Dr Souza
--- NOTE | 2023-04-11 14:50 | PC.NURSE ---
Patient returned from ICU to subacute unit. Arrived via bed assisted to unit bed. Remains on mechanical ventilator. No respiratory distress noted upon arrival. vital signs 114/60, 77,98.6,24. O2 saturation 98%. Resident New order for Antibiotic therapy for UTI and PNA. Notified MD and famil. Will carry out all new orders.
[2023-04-11 18:00] VITALS: BP 123/80; PULSE 75; RESP 27; TEMP 36.3; O2SAT 99
[2023-04-11] MEDS: INSULIN GLARGINE 100 UNIT/ML INSULN.PEN 14 UNIT SC (18:00)
[2023-04-11 18:08] VITALS: PULSE 76; PULSE 81; RESP 24; RESP 26; O2SAT 98; O2SAT 99
[2023-04-11] MEDS: IPRATROPIUM/ALBUTEROL 3 ML AMPUL.NEB INH (18:08)
[2023-04-11] MEDS: DOXAZOSIN 2 MG TABLET 4 MG GT (20:46)
[2023-04-11] MEDS: FAMOTIDINE 20 MG TABLET GT (20:46)
[2023-04-11] MEDS: SENNOSIDES 8.6 MG TABLET GT (20:46)
[2023-04-12] VITALS (9 sets, daily range): BP systolic 93–146; BP diastolic 58–83; PULSE 62–88; RESP 18–30; TEMP 36.1–36.8; O2SAT 98–99
[2023-04-12] MEDS: IPRATROPIUM/ALBUTEROL 3 ML AMPUL.NEB INH ×4 (00:27→18:46)
[2023-04-12] MEDS: FAMOTIDINE 20 MG TABLET GT ×2 (08:09→21:16)
[2023-04-12] MEDS: FUROSEMIDE 20 MG TABLET GT (08:09)
[2023-04-12] MEDS: SENNOSIDES 8.6 MG TABLET GT ×2 (08:10→21:16)
[2023-04-12] MEDS: CEFTRIAXONE 1 GM VIAL.PORT 2 GM IVP (09:34)
--- NOTE | 2023-04-12 09:49 | PC.NURSE ---
Continue on antibiotic therapy for bacterimia and PNA. dose #2. No A/R noted from antibiotic tolerated well will continue to monitor.
[2023-04-12] MEDS: INSULIN GLARGINE 100 UNIT/ML INSULN.PEN 14 UNIT SC (17:09)
[2023-04-12] MEDS: INSULIN REGULAR, HUMAN 100 UNIT/ML VIAL SC (17:28)
--- NOTE | 2023-04-12 18:40 | PC.NURSE ---
1809-IV to left hand discontinued without complication, tolerated well.
--- NOTE | 2023-04-12 20:29 | ESPR_ITS ---
Progress Note - SubAcute SUBJECTIVE Fever:: none Shortness of Breath:: none GI:: no complaints Pain:: none OBJECTIVE Most recent vital signs: Last Vital Signs Temp 97 F 04/12/23 18:00 Pulse 74 04/12/23 18:00 Resp 28 H 04/12/23 18:00 BP 146/83 H 04/12/23 18:00 Pulse Ox 99 04/12/23 18:00 O2 Del Method Mechanical Ventilation 04/12/23 18:00 FiO2 25 04/12/23 12:20 Neurological:: awake Speech:: none Answers questions:: no Respiratory:: shallow breathing Cardiovascular: RRR Abdomen: soft and nontender Extremities:: deformities Decubitus:: improved Tracheostomy:: to ventilator Feeding per:: G tube Complaints:: none ASSESSMENT & PLAN Assessment: Pt. has certainly been awake and eye tracking some. Returned from acute care yesterday after treatment for Sepsis from UTI/Pn. after good response and stable vital signs and continued on Rocephin 2 gms iv for total of 14 days. Diagnosis and treatment reviewed. Ventilator settings reviewed and pt started was on weaning with Pressure support but after acute infection back on ventilator continuously till he settles down when we will again attempt weaning. Plan: Current treatment as ongoing
[2023-04-12] MEDS: DOXAZOSIN 2 MG TABLET 4 MG GT (21:16)
[2023-04-13] VITALS (8 sets, daily range): BP systolic 98–149; BP diastolic 66–79; PULSE 60–82; RESP 18–32; TEMP 36.1–36.6; O2SAT 98–100
[2023-04-13] MEDS: IPRATROPIUM/ALBUTEROL 3 ML AMPUL.NEB INH ×4 (00:59→19:34)
[2023-04-13] MEDS: INSULIN REGULAR, HUMAN 100 UNIT/ML VIAL SC (05:35)
[2023-04-13] MEDS: SENNOSIDES 8.6 MG TABLET GT ×2 (08:21→20:47)
[2023-04-13] MEDS: FUROSEMIDE 20 MG TABLET GT (08:21)
[2023-04-13] MEDS: FAMOTIDINE 20 MG TABLET GT ×2 (08:21→20:47)
[2023-04-13] MEDS: CEFTRIAXONE 1 GM VIAL.PORT 2 GM IVP (09:10)
--- NOTE | 2023-04-13 10:25 | PC.NURSE ---
Continue on antibiotic therapy via IV. No adverse reaction to medication noted. resident a febrile. no discomfort noted at gis time. Will continue to monitor.
--- NOTE | 2023-04-13 12:43 | CHAP ---
Patient was visited by the Spiritual Care Volunteer who prayed for them outside of room. (Volunteer was in the hospital from 11:05-12:43)
[2023-04-13] MEDS: INSULIN GLARGINE 100 UNIT/ML INSULN.PEN 14 UNIT SC (17:16)
[2023-04-13] MEDS: DOXAZOSIN 2 MG TABLET 4 MG GT (20:48)
[2023-04-14] VITALS (9 sets, daily range): BP systolic 107–123; BP diastolic 71–80; PULSE 70–85; RESP 18–29; TEMP 35.9–36.6; O2SAT 97–100
[2023-04-14] MEDS: IPRATROPIUM/ALBUTEROL 3 ML AMPUL.NEB INH ×4 (00:18→20:10)
[2023-04-14] MEDS: CEFTRIAXONE 1 GM VIAL.PORT 2 GM IVP (08:39)
[2023-04-14] MEDS: AMLODIPINE 5 MG TABLET GT (09:34)
[2023-04-14] MEDS: FAMOTIDINE 20 MG TABLET GT ×2 (09:35→21:15)
[2023-04-14] MEDS: SENNOSIDES 8.6 MG TABLET GT ×2 (09:36→21:15)
[2023-04-14] MEDS: FUROSEMIDE 20 MG TABLET GT (09:36)
[2023-04-14] MEDS: INSULIN REGULAR, HUMAN 100 UNIT/ML VIAL SC (11:43)
--- NOTE | 2023-04-14 16:57 | PC.NURSE ---
Remains on Rocephin 2 gm IV daily for Bacteremia (UTI) and PNA, no adverse reaction noted. Respiration even and unlabored and remains afebrile. GT feeding tolerated well. No s/s of pain or discomfort noted at this time. F/C patent and draining via gravity bag, no hematuria noted.
[2023-04-14] MEDS: INSULIN GLARGINE 100 UNIT/ML INSULN.PEN 14 UNIT SC (17:45)
[2023-04-14] MEDS: DOXAZOSIN 2 MG TABLET 4 MG GT (21:09)
[2023-04-15] VITALS (9 sets, daily range): BP systolic 103–161; BP diastolic 64–91; PULSE 67–87; RESP 18–27; TEMP 36.3–36.4; O2SAT 96–99
[2023-04-15] MEDS: IPRATROPIUM/ALBUTEROL 3 ML AMPUL.NEB INH ×4 (00:31→18:42)
[2023-04-15] MEDS: INSULIN REGULAR, HUMAN 100 UNIT/ML VIAL SC ×3 (05:28→23:54)
--- NOTE | 2023-04-15 05:51 | PC.NURSE ---
Resident continues on Rocephin 1 gram IV for sputum, urine and blood culture results of Proteus mirabilis, no side effects noted, IV remains patent
[2023-04-15] MEDS: AMLODIPINE 5 MG TABLET GT (07:59)
[2023-04-15] MEDS: FAMOTIDINE 20 MG TABLET GT ×2 (08:00→20:07)
[2023-04-15] MEDS: SENNOSIDES 8.6 MG TABLET GT ×2 (08:00→20:07)
[2023-04-15] MEDS: FUROSEMIDE 20 MG TABLET GT (08:00)
[2023-04-15] MEDS: CEFTRIAXONE 1 GM VIAL.PORT 2 GM IVP (09:05)
--- NOTE | 2023-04-15 17:03 | PC.NURSE ---
Continue on antibiotic therapy for bacteremia and PNA. No A/R from antibiotic noted at this time. Tolerating it well. Will continue to monitoring.
[2023-04-15] MEDS: INSULIN GLARGINE 100 UNIT/ML INSULN.PEN 14 UNIT SC (17:17)
[2023-04-15] MEDS: DOXAZOSIN 2 MG TABLET 4 MG GT (20:06)
[2023-04-16] VITALS (9 sets, daily range): BP systolic 104–147; BP diastolic 71–82; PULSE 70–86; RESP 18–34; TEMP 36.3–36.5; O2SAT 98–100
[2023-04-16] MEDS: IPRATROPIUM/ALBUTEROL 3 ML AMPUL.NEB INH ×4 (00:47→19:10)
[2023-04-16] MEDS: INSULIN REGULAR, HUMAN 100 UNIT/ML VIAL SC ×3 (05:47→17:16)
[2023-04-16] MEDS: CEFTRIAXONE 1 GM VIAL.PORT 2 GM IVP (09:00)
[2023-04-16] MEDS: FAMOTIDINE 20 MG TABLET GT ×2 (09:15→20:41)
[2023-04-16] MEDS: AMLODIPINE 5 MG TABLET GT (09:15)
[2023-04-16] MEDS: FUROSEMIDE 20 MG TABLET GT (09:15)
[2023-04-16] MEDS: SENNOSIDES 8.6 MG TABLET GT ×2 (09:16→20:41)
[2023-04-16] MEDS: INSULIN GLARGINE 100 UNIT/ML INSULN.PEN 14 UNIT SC (17:18)
[2023-04-16] MEDS: DOXAZOSIN 2 MG TABLET 4 MG GT (20:41)
--- NOTE | 2023-04-16 22:29 | ESPR_ITS ---
Progress Note - SubAcute SUBJECTIVE Fever:: none Shortness of Breath:: none GI:: no complaints Pain:: none OBJECTIVE Most recent vital signs: Last Vital Signs Temp 97.3 F 04/16/23 05:51 Pulse 86 04/16/23 19:27 Resp 18 04/16/23 19:27 BP 118/74 04/16/23 09:15 Pulse Ox 98 04/16/23 19:27 O2 Del Method Mechanical Ventilation 04/15/23 06:00 FiO2 25 04/16/23 19:27 Neurological:: awake Speech:: none Answers questions:: no Respiratory:: shallow breathing Cardiovascular: RRR Abdomen: soft and nontender Extremities:: deformities Decubitus:: improved Tracheostomy:: to ventilator Feeding per:: G tube Complaints:: none ASSESSMENT & PLAN Assessment: Pt. has certainly been awake and eye tracking some. Returned from acute care after treatment for Sepsis from UTI/Pn. after good response and stable vital sig ns and continued on Rocephin 2 gms iv for total of 14 days. Diagnosis and treatment reviewed. Ventilator settings reviewed and pt started was on weaning with Pressure support but after acute infection back on ventilator continuously till he settles down when we will again attempt weaning. Plan: Current treatment as ongoing
[2023-04-17] VITALS (9 sets, daily range): BP systolic 118–136; BP diastolic 76–86; PULSE 71–85; RESP 18–28; TEMP 36.2–36.5; O2SAT 98–100
[2023-04-17] MEDS: IPRATROPIUM/ALBUTEROL 3 ML AMPUL.NEB INH ×4 (00:10→19:25)
[2023-04-17] MEDS: INSULIN REGULAR, HUMAN 100 UNIT/ML VIAL SC ×2 (05:34→12:25)
[2023-04-17] MEDS: AMLODIPINE 5 MG TABLET GT (09:38)
[2023-04-17] MEDS: SENNOSIDES 8.6 MG TABLET GT ×2 (09:39→21:25)
[2023-04-17] MEDS: FAMOTIDINE 20 MG TABLET GT ×2 (09:39→21:25)
[2023-04-17] MEDS: FUROSEMIDE 20 MG TABLET GT (09:39)
[2023-04-17] MEDS: CEFTRIAXONE 1 GM VIAL.PORT 2 GM IVP (09:44)
--- NOTE | 2023-04-17 13:45 | CHAP ---
11:00 AM Visited by spiritual care volunteer Provided prayer for Patient.
[2023-04-17] MEDS: INSULIN GLARGINE 100 UNIT/ML INSULN.PEN 14 UNIT SC (17:58)
[2023-04-17] MEDS: DOXAZOSIN 2 MG TABLET 4 MG GT (21:25)
[2023-04-18] VITALS (9 sets, daily range): BP systolic 119–137; BP diastolic 69–81; PULSE 71–89; RESP 17–30; TEMP 36.4–36.7; O2SAT 97–100
[2023-04-18] MEDS: IPRATROPIUM/ALBUTEROL 3 ML AMPUL.NEB INH ×4 (00:01→20:10)
[2023-04-18] MEDS: INSULIN REGULAR, HUMAN 100 UNIT/ML VIAL SC ×2 (05:22→23:40)
[2023-04-18] MEDS: CEFTRIAXONE 1 GM VIAL.PORT 2 GM IVP (08:59)
[2023-04-18] MEDS: AMLODIPINE 5 MG TABLET GT (09:27)
[2023-04-18] MEDS: FUROSEMIDE 20 MG TABLET GT (09:27)
[2023-04-18] MEDS: FAMOTIDINE 20 MG TABLET GT ×2 (09:27→21:01)
[2023-04-18] MEDS: SENNOSIDES 8.6 MG TABLET GT ×2 (09:28→21:01)
--- NOTE | 2023-04-18 15:47 | PC.NURSE ---
Resident noted to have order for bladder retraining that was written on 04/08 for. During time in which retraining would have occurred, resident was transferred to ICU for treatment. Resident is currently on ABT for PNA and UTI. Charge nurse made aware of order. Will consult with MD following ABT treatment for further orders. Call light in reach. Will continue plan of care.
[2023-04-18] MEDS: INSULIN GLARGINE 100 UNIT/ML INSULN.PEN 14 UNIT SC (17:48)
[2023-04-18] MEDS: DOXAZOSIN 2 MG TABLET 4 MG GT (21:01)
[2023-04-19] VITALS (9 sets, daily range): BP systolic 102–118; BP diastolic 67–74; PULSE 58–82; RESP 18–27; TEMP 36.4–36.9; O2SAT 98–100
[2023-04-19] MEDS: IPRATROPIUM/ALBUTEROL 3 ML AMPUL.NEB INH ×4 (01:05→18:25)
--- NOTE | 2023-04-19 05:30 | PC.NURSE ---
Resident continues on IV antibiotics: Rocephin for PNA and Bacteremia, no side effects noted
[2023-04-19] MEDS: CEFTRIAXONE 1 GM VIAL.PORT 2 GM IVP (09:00)
[2023-04-19] MEDS: AMLODIPINE 5 MG TABLET GT (09:28)
[2023-04-19] MEDS: SENNOSIDES 8.6 MG TABLET GT ×2 (09:29→20:31)
[2023-04-19] MEDS: FAMOTIDINE 20 MG TABLET GT ×2 (09:29→20:31)
[2023-04-19] MEDS: FUROSEMIDE 20 MG TABLET GT (09:29)
[2023-04-19] MEDS: INSULIN REGULAR, HUMAN 100 UNIT/ML VIAL SC ×2 (12:06→17:02)
[2023-04-19] MEDS: INSULIN GLARGINE 100 UNIT/ML INSULN.PEN 14 UNIT SC (17:02)
[2023-04-19] MEDS: DOXAZOSIN 2 MG TABLET 4 MG GT (20:30)
[2023-04-19] MEDS: ACETAMINOPHEN 325 MG/10.15 ML 650 MG GT (20:32)
[2023-04-20] VITALS (9 sets, daily range): BP systolic 98–156; BP diastolic 54–82; PULSE 71–84; RESP 20–31; TEMP 36.3–36.6; O2SAT 98–100
[2023-04-20] MEDS: IPRATROPIUM/ALBUTEROL 3 ML AMPUL.NEB INH ×4 (01:11→18:10)
[2023-04-20] MEDS: AMLODIPINE 5 MG TABLET GT (09:21)
[2023-04-20] MEDS: FUROSEMIDE 20 MG TABLET GT (09:22)
[2023-04-20] MEDS: SENNOSIDES 8.6 MG TABLET GT ×2 (09:22→21:22)
[2023-04-20] MEDS: FAMOTIDINE 20 MG TABLET GT ×2 (09:22→21:21)
--- NOTE | 2023-04-20 10:45 | CHAP ---
Patient was visited by the Spiritual Care Volunteer who prayed for them outside the room. (Volunteer was in the hospital 09:50-10:45)
--- NOTE | 2023-04-20 17:12 | ESPR_ITS ---
Progress Note - SubAcute SUBJECTIVE Fever:: none Shortness of Breath:: none GI:: no complaints Pain:: none OBJECTIVE Most recent vital signs: Last Vital Signs Temp 97.4 F 04/20/23 12:00 Pulse 76 04/20/23 12:16 Resp 22 H 04/20/23 12:16 BP 109/62 04/20/23 12:00 Pulse Ox 100 04/20/23 12:16 O2 Del Method Mechanical Ventilation 04/20/23 06:00 FiO2 25 04/20/23 12:16 Neurological:: awake Speech:: none Answers questions:: no Respiratory:: shallow breathing Cardiovascular: RRR Abdomen: soft and nontender Extremities:: deformities Decubitus:: improved Tracheostomy:: to ventilator Feeding per:: G tube Complaints:: none ASSESSMENT & PLAN Assessment: Pt. has certainly been awake and eye tracking some. Returned from acute care after treatment for Sepsis from UTI/Pn. after good response and stable vital s igns and continued on Rocephin 2 gms iv for total of 14 days. Diagnosis and treatment reviewed. Ventilator settings reviewed and pt started was on weaning with Pressure support but after acute infection back on ventilator continuously till he settles down when we will again attempt weaning. Plan: Current treatment as ongoing
[2023-04-20] MEDS: INSULIN GLARGINE 100 UNIT/ML INSULN.PEN 14 UNIT SC (17:21)
[2023-04-20] MEDS: DOXAZOSIN 2 MG TABLET 4 MG GT (21:21)
[2023-04-21] VITALS (9 sets, daily range): BP systolic 99–130; BP diastolic 66–81; PULSE 70–84; RESP 20–31; TEMP 36.2–36.6; O2SAT 98–100
[2023-04-21] MEDS: IPRATROPIUM/ALBUTEROL 3 ML AMPUL.NEB INH ×3 (07:38→20:35)
[2023-04-21] MEDS: CEFTRIAXONE 1 GM VIAL.PORT 2 GM IVP (08:45)
[2023-04-21] MEDS: AMLODIPINE 5 MG TABLET GT (09:40)
[2023-04-21] MEDS: FAMOTIDINE 20 MG TABLET GT ×2 (09:41→21:22)
[2023-04-21] MEDS: FUROSEMIDE 20 MG TABLET GT (09:41)
[2023-04-21] MEDS: SENNOSIDES 8.6 MG TABLET GT ×2 (09:41→21:22)
[2023-04-21] MEDS: INSULIN REGULAR, HUMAN 100 UNIT/ML VIAL SC (17:32)
[2023-04-21] MEDS: INSULIN GLARGINE 100 UNIT/ML INSULN.PEN 14 UNIT SC (17:32)
[2023-04-21] MEDS: DOXAZOSIN 2 MG TABLET 4 MG GT (21:22)
[2023-04-22] VITALS (7 sets, daily range): BP systolic 115–168; BP diastolic 69–87; PULSE 73–82; RESP 18–27; TEMP 36.4; O2SAT 98–100
[2023-04-22] MEDS: IPRATROPIUM/ALBUTEROL 3 ML AMPUL.NEB INH ×4 (00:45→19:24)
[2023-04-22] MEDS: CEFTRIAXONE 1 GM VIAL.PORT 2 GM IVP (09:00)
[2023-04-22] MEDS: SENNOSIDES 8.6 MG TABLET GT ×2 (09:12→20:10)
[2023-04-22] MEDS: AMLODIPINE 5 MG TABLET GT (09:12)
[2023-04-22] MEDS: FAMOTIDINE 20 MG TABLET GT ×2 (09:12→20:10)
[2023-04-22] MEDS: FUROSEMIDE 20 MG TABLET GT (09:12)
[2023-04-22] MEDS: INSULIN REGULAR, HUMAN 100 UNIT/ML VIAL SC (11:41)
[2023-04-22] MEDS: INSULIN GLARGINE 100 UNIT/ML INSULN.PEN 14 UNIT SC (17:18)
--- NOTE | 2023-04-22 17:42 | PC.NURSE ---
Remains on Rocephin 2 gm IV for UTI and Pneumonia, no adverse reaction noted. F/C patent and intact draining via gravity bag. Respiration even and unlabored. GT feeding tolerated well.
[2023-04-22] MEDS: DOXAZOSIN 2 MG TABLET 4 MG GT (20:10)
[2023-04-23] VITALS (10 sets, daily range): BP systolic 109–139; BP diastolic 68–83; PULSE 72–92; RESP 18–28; TEMP 36.3–36.6; O2SAT 98–100
[2023-04-23] MEDS: IPRATROPIUM/ALBUTEROL 3 ML AMPUL.NEB INH ×4 (00:45→18:10)
[2023-04-23 09:00] LABS: Glucose,Fasting 137 mg/dL (74-106)
[2023-04-23] MEDS: CEFTRIAXONE 1 GM VIAL.PORT 2 GM IVP ×2 (09:00→10:44)
[2023-04-23] MEDS: FAMOTIDINE 20 MG TABLET GT ×2 (09:24→20:23)
[2023-04-23] MEDS: FUROSEMIDE 20 MG TABLET GT (09:24)
[2023-04-23] MEDS: AMLODIPINE 5 MG TABLET GT (09:24)
[2023-04-23] MEDS: SENNOSIDES 8.6 MG TABLET GT ×2 (09:24→20:24)
[2023-04-23] MEDS: INSULIN REGULAR, HUMAN 100 UNIT/ML VIAL SC ×2 (11:52→17:26)
--- NOTE | 2023-04-23 12:26 | PC.NURSE ---
Fasting Glucose results are in, made aware, no new orders at this time.
--- NOTE | 2023-04-23 13:54 | PC.SS ---
Resident seen by DDKelly/Dr. Jackson, had teeth cleaning done with no new orders or recommendations. Resident tolerated treatment well.
[2023-04-23] MEDS: INSULIN GLARGINE 100 UNIT/ML INSULN.PEN 14 UNIT SC (17:26)
[2023-04-23] MEDS: DOXAZOSIN 2 MG TABLET 4 MG GT (20:23)
[2023-04-24] VITALS (8 sets, daily range): BP systolic 111–150; BP diastolic 69–77; PULSE 73–88; RESP 18–28; TEMP 36.2–36.6; O2SAT 96–100
[2023-04-24] MEDS: IPRATROPIUM/ALBUTEROL 3 ML AMPUL.NEB INH ×4 (00:40→19:50)
[2023-04-24] MEDS: CEFTRIAXONE 1 GM VIAL.PORT 2 GM IVP (09:01)
[2023-04-24] MEDS: AMLODIPINE 5 MG TABLET GT (09:14)
[2023-04-24] MEDS: FAMOTIDINE 20 MG TABLET GT ×2 (09:15→20:31)
[2023-04-24] MEDS: SENNOSIDES 8.6 MG TABLET GT ×2 (09:15→20:31)
[2023-04-24] MEDS: FUROSEMIDE 20 MG TABLET GT (09:15)
--- NOTE | 2023-04-24 16:11 | PC.NURSE ---
Resident completed antibiotic therapy (14 days) No adverse reaction has been noted from antibiotic. Notified MD. Resident has remained asymptomatic no fever or any other issue noted. Will continue to monitor. Will start bladder retraining on 04/25/23 at 0800.
[2023-04-24] MEDS: INSULIN GLARGINE 100 UNIT/ML INSULN.PEN 14 UNIT SC (17:42)
[2023-04-24] MEDS: DOXAZOSIN 2 MG TABLET 4 MG GT (20:30)
--- NOTE | 2023-04-24 21:49 | ESPR_ITS ---
Progress Note - SubAcute SUBJECTIVE Fever:: none Shortness of Breath:: none GI:: no complaints Pain:: none OBJECTIVE Most recent vital signs: Last Vital Signs Temp 97.8 F 04/24/23 18:00 Pulse 81 04/24/23 19:50 Resp 28 H 04/24/23 19:50 BP 114/69 04/24/23 18:00 Pulse Ox 98 04/24/23 19:50 O2 Del Method Mechanical Ventilation 04/24/23 11:57 FiO2 25 04/24/23 19:50 Neurological:: awake Speech:: none Answers questions:: no Respiratory:: shallow breathing Cardiovascular: RRR Abdomen: soft and nontender Extremities:: deformities Decubitus:: improved Tracheostomy:: to ventilator Feeding per:: G tube Complaints:: none ASSESSMENT & PLAN Assessment: Pt. has certainly been awake and eye tracking some. Returned from acute care after treatment for Sepsis from UTI/Pn. after good response and stable vital si gns and continued on Rocephin 2 gms iv for total of 14 days. Diagnosis and treatment reviewed. Ventilator settings reviewed and pt started was on weaning with Pressure support but after acute infection back on ventilator continuously till he settles down when we will again attempt weaning. Plan: Current treatment as ongoing
[2023-04-25] VITALS (9 sets, daily range): BP systolic 99–126; BP diastolic 54–76; PULSE 70–88; RESP 18–28; TEMP 36.3–36.9; O2SAT 97–100
[2023-04-25] MEDS: IPRATROPIUM/ALBUTEROL 3 ML AMPUL.NEB INH ×3 (00:50→07:27)
[2023-04-25] MEDS: AMLODIPINE 5 MG TABLET GT (09:15)
[2023-04-25] MEDS: FUROSEMIDE 20 MG TABLET GT (09:16)
[2023-04-25] MEDS: SENNOSIDES 8.6 MG TABLET GT ×2 (09:16→20:35)
[2023-04-25] MEDS: FAMOTIDINE 20 MG TABLET GT ×2 (09:16→20:35)
--- NOTE | 2023-04-25 16:49 | PC.SS ---
Room visit: Resident is laying in bed with head of the bed elevated with call light properly placed with no signs of distress. Resident mood and behavior is adequate, no changes. Resident will remain in current care as he continues to work towards DC goals. Resident will have all needs met by staff and will be offered daily room visits for any support needed. This SSD will assist with DC planning when appropriate.
[2023-04-25] MEDS: INSULIN GLARGINE 100 UNIT/ML INSULN.PEN 14 UNIT SC (17:56)
[2023-04-25] MEDS: DOXAZOSIN 2 MG TABLET 4 MG GT (20:35)
[2023-04-26] VITALS (9 sets, daily range): BP systolic 114–129; BP diastolic 67–78; PULSE 70–83; RESP 18–26; TEMP 36.2–36.7; O2SAT 97–100
[2023-04-26] MEDS: IPRATROPIUM/ALBUTEROL 3 ML AMPUL.NEB INH ×3 (06:43→18:20)
[2023-04-26] MEDS: AMLODIPINE 5 MG TABLET GT (08:08)
[2023-04-26] MEDS: FAMOTIDINE 20 MG TABLET GT ×2 (08:09→20:12)
[2023-04-26] MEDS: SENNOSIDES 8.6 MG TABLET GT ×2 (08:09→20:12)
[2023-04-26] MEDS: FUROSEMIDE 20 MG TABLET GT (08:09)
[2023-04-26] MEDS: INSULIN REGULAR, HUMAN 100 UNIT/ML VIAL SC (11:56)
[2023-04-26] MEDS: INSULIN GLARGINE 100 UNIT/ML INSULN.PEN 14 UNIT SC (17:14)
[2023-04-26] MEDS: DOXAZOSIN 2 MG TABLET 4 MG GT (20:12)
[2023-04-27] VITALS (9 sets, daily range): BP systolic 120–146; BP diastolic 73–79; PULSE 70–81; RESP 18–29; TEMP 36–36.8; O2SAT 97–100
[2023-04-27] MEDS: IPRATROPIUM/ALBUTEROL 3 ML AMPUL.NEB INH ×4 (00:07→16:38)
[2023-04-27] MEDS: AMLODIPINE 5 MG TABLET GT (08:24)
[2023-04-27] MEDS: SENNOSIDES 8.6 MG TABLET GT ×2 (08:25→20:46)
[2023-04-27] MEDS: FAMOTIDINE 20 MG TABLET GT ×2 (08:25→20:46)
[2023-04-27] MEDS: FUROSEMIDE 20 MG TABLET GT (08:25)
--- NOTE | 2023-04-27 11:45 | CHAP ---
Patient was prayed for outside of room by the Spiritual Care Volunteer. (Volunteer was in the hospital from 10:24-11:45).
[2023-04-27] MEDS: INSULIN REGULAR, HUMAN 100 UNIT/ML VIAL SC (17:20)
[2023-04-27] MEDS: INSULIN GLARGINE 100 UNIT/ML INSULN.PEN 14 UNIT SC (17:21)
[2023-04-27] MEDS: DOXAZOSIN 2 MG TABLET 4 MG GT (20:46)
[2023-04-28] VITALS (9 sets, daily range): BP systolic 121–137; BP diastolic 67–85; PULSE 66–76; RESP 18–24; TEMP 36.3–36.5; O2SAT 94–100
[2023-04-28] MEDS: IPRATROPIUM/ALBUTEROL 3 ML AMPUL.NEB INH ×4 (01:11→19:40)
[2023-04-28] MEDS: AMLODIPINE 5 MG TABLET GT (08:16)
[2023-04-28] MEDS: FAMOTIDINE 20 MG TABLET GT ×2 (08:16→20:15)
[2023-04-28] MEDS: FUROSEMIDE 20 MG TABLET GT (08:17)
[2023-04-28] MEDS: SENNOSIDES 8.6 MG TABLET GT ×2 (08:17→20:15)
[2023-04-28] MEDS: CARBAMIDE PEROXIDE OTIC SOL 15 ML BTL 5 DROP BOTH EARS ×2 (09:00→20:15)
--- NOTE | 2023-04-28 16:25 | ESPR_ITS ---
Progress Note - SubAcute SUBJECTIVE Fever:: none Shortness of Breath:: none GI:: no complaints Pain:: none OBJECTIVE Most recent vital signs: Last Vital Signs Temp 97.6 F 04/29/23 05:54 Pulse 78 04/29/23 05:54 Resp 20 04/29/23 05:54 BP 127/82 04/29/23 05:54 Pulse Ox 100 04/29/23 06:30 O2 Del Method Mechanical Ventilation 04/28/23 12:00 FiO2 30 04/29/23 06:30 Neurological:: awake Speech:: none Answers questions:: no Respiratory:: shallow breathing Cardiovascular: RRR Abdomen: soft and nontender Extremities:: deformities Decubitus:: improved Tracheostomy:: to ventilator Feeding per:: G tube Complaints:: none ASSESSMENT & PLAN Assessment: Pt. has certainly been awake and eye tracking some. Diagnosis and treatment reviewed. Ventilator settings reviewed and pt started was on weaning with Pressure support but after acute infection back on ventilator continuously till he settles down when we will again attempt weaning. Plan: Current treatment as ongoing
[2023-04-28] MEDS: INSULIN GLARGINE 100 UNIT/ML INSULN.PEN 14 UNIT SC (17:51)
[2023-04-28] MEDS: DOXAZOSIN 2 MG TABLET 4 MG GT (20:14)
[2023-04-29] VITALS (10 sets, daily range): BP systolic 107–147; BP diastolic 68–82; PULSE 62–88; RESP 19–25; TEMP 36.1–36.4; O2SAT 97–100
[2023-04-29] MEDS: IPRATROPIUM/ALBUTEROL 3 ML AMPUL.NEB INH ×4 (01:00→19:20)
[2023-04-29] MEDS: AMLODIPINE 5 MG TABLET GT (10:19)
[2023-04-29] MEDS: FAMOTIDINE 20 MG TABLET GT ×2 (10:20→21:48)
[2023-04-29] MEDS: SENNOSIDES 8.6 MG TABLET GT ×2 (10:20→21:49)
[2023-04-29] MEDS: FUROSEMIDE 20 MG TABLET GT (10:20)
[2023-04-29] MEDS: INSULIN REGULAR, HUMAN 100 UNIT/ML VIAL SC ×2 (11:43→18:20)
[2023-04-29] MEDS: INSULIN GLARGINE 100 UNIT/ML INSULN.PEN 14 UNIT SC (18:19)
[2023-04-29] MEDS: CARBAMIDE PEROXIDE OTIC SOL 15 ML BTL 5 DROP BOTH EARS (21:43)
[2023-04-29] MEDS: DOXAZOSIN 2 MG TABLET 4 MG GT (21:48)
[2023-04-30] VITALS (9 sets, daily range): BP systolic 119–139; BP diastolic 72–81; PULSE 67–89; RESP 18–28; TEMP 36.4–36.6; O2SAT 98–100
[2023-04-30] MEDS: IPRATROPIUM/ALBUTEROL 3 ML AMPUL.NEB INH ×4 (00:27→18:34)
[2023-04-30] MEDS: AMLODIPINE 5 MG TABLET GT (09:21)
[2023-04-30] MEDS: SENNOSIDES 8.6 MG TABLET GT ×2 (09:22→21:02)
[2023-04-30] MEDS: FUROSEMIDE 20 MG TABLET GT (09:22)
[2023-04-30] MEDS: CARBAMIDE PEROXIDE OTIC SOL 15 ML BTL 5 DROP BOTH EARS ×2 (09:22→21:02)
[2023-04-30] MEDS: FAMOTIDINE 20 MG TABLET GT ×2 (09:22→21:02)
[2023-04-30] MEDS: FLU VACC QS 2023-24 (6 MOS UP) 60 MCG/0.5 ML VIAL IMi (14:06)
--- NOTE | 2023-04-30 14:10 | PC.NURSE ---
IP note: Obtained consent from RP spouse, Harper for 23-24 Influenza immunization. 0.5ml IM to Rt. deltoid given; VIS given in Lithuanian translation to RP. Morena HENDRICKS aware; Jaimie Rios RN aware. Assured RP Mr. Ferreira would be monitored for any signs or symptoms of discomfort or temperature elevations as side effects.
--- NOTE | 2023-04-30 14:14 | PC.SS ---
Room visit: Resident is laying in bed with head of the bed elevated, resident has call light properly placed with no no signs of distress. Resident will remain in current care until goals for DC are met. Resident is total care, all needs to be met in facility by staff. Resident is unable to return home due to family unable to care for at home. Resident will continue to have daily room visit and will be offered support visit as needed.
--- NOTE | 2023-04-30 16:02 | PC.NURSE ---
Nurse assessment and vital signs done for resident who has received Flu vaccination. Will monitor VS x48 hours. First set of vital signs done at 1430. Tem 97.6,89,18,110/68. Will continue to monitor.
[2023-04-30] MEDS: INSULIN REGULAR, HUMAN 100 UNIT/ML VIAL SC (17:39)
[2023-04-30] MEDS: INSULIN GLARGINE 100 UNIT/ML INSULN.PEN 14 UNIT SC (17:42)
[2023-04-30] MEDS: DOXAZOSIN 2 MG TABLET 4 MG GT (21:48)
[2023-05-01] VITALS (9 sets, daily range): BP systolic 110–136; BP diastolic 66–78; PULSE 72–85; RESP 18–27; TEMP 36.4–36.7; O2SAT 95–100
[2023-05-01] MEDS: IPRATROPIUM/ALBUTEROL 3 ML AMPUL.NEB INH ×4 (00:16→18:13)
[2023-05-01] MEDS: AMLODIPINE 5 MG TABLET GT (09:56)
[2023-05-01] MEDS: FAMOTIDINE 20 MG TABLET GT ×2 (09:57→20:11)
[2023-05-01] MEDS: SENNOSIDES 8.6 MG TABLET GT ×2 (09:57→20:12)
[2023-05-01] MEDS: FUROSEMIDE 20 MG TABLET GT (09:57)
[2023-05-01] MEDS: INSULIN GLARGINE 100 UNIT/ML INSULN.PEN 14 UNIT SC (17:03)
[2023-05-01] MEDS: DOXAZOSIN 2 MG TABLET 4 MG GT (20:11)
[2023-05-01] MEDS: CARBAMIDE PEROXIDE OTIC SOL 15 ML BTL 5 DROP BOTH EARS (20:11)
[2023-05-02] VITALS (9 sets, daily range): BP systolic 112–175; BP diastolic 69–80; PULSE 71–79; RESP 18–26; TEMP 36.1–36.2; O2SAT 98–100
[2023-05-02] MEDS: IPRATROPIUM/ALBUTEROL 3 ML AMPUL.NEB INH ×4 (00:07→19:15)
[2023-05-02] MEDS: AMLODIPINE 5 MG TABLET GT (09:32)
[2023-05-02] MEDS: FAMOTIDINE 20 MG TABLET GT ×2 (09:33→20:26)
[2023-05-02] MEDS: SENNOSIDES 8.6 MG TABLET GT ×2 (09:33→20:27)
[2023-05-02] MEDS: FUROSEMIDE 20 MG TABLET GT (09:33)
[2023-05-02] MEDS: ACETAMINOPHEN 325 MG/10.15 ML 650 MG GT ×2 (09:34→20:30)
[2023-05-02] MEDS: INSULIN REGULAR, HUMAN 100 UNIT/ML VIAL SC (11:55)
--- NOTE | 2023-05-02 13:25 | ESPR_ITS ---
Progress Note - SubAcute SUBJECTIVE Fever:: none Shortness of Breath:: none GI:: no complaints Pain:: none OBJECTIVE Most recent vital signs: Last Vital Signs Temp 97.5 F 05/04/23 06:00 Pulse 73 05/04/23 08:08 Resp 18 05/04/23 07:06 BP 133/81 H 05/04/23 08:08 Pulse Ox 99 05/04/23 07:06 O2 Del Method Mechanical Ventilation 05/04/23 06:00 FiO2 25 05/04/23 07:06 Neurological:: awake Speech:: none Answers questions:: no Respiratory:: shallow breathing Cardiovascular: RRR Abdomen: soft and nontender Extremities:: deformities Decubitus:: improved Tracheostomy:: to ventilator Feeding per:: G tube Complaints:: none ASSESSMENT & PLAN Assessment: Pt. has certainly been awake and eye tracking some. Diagnosis and treatment reviewed. Ventilator settings reviewed and pt started was on weaning with Pressure support but after acute infection back on ventilator continuously till he settles down when we will again attempt weaning. Plan: Current treatment as ongoing
[2023-05-02] MEDS: INSULIN GLARGINE 100 UNIT/ML INSULN.PEN 14 UNIT SC (17:41)
[2023-05-02] MEDS: DOXAZOSIN 2 MG TABLET 4 MG GT (20:26)
[2023-05-03] VITALS (9 sets, daily range): BP systolic 114–143; BP diastolic 71–77; PULSE 69–81; RESP 18–25; TEMP 36.1–36.5; O2SAT 96–100
[2023-05-03] MEDS: IPRATROPIUM/ALBUTEROL 3 ML AMPUL.NEB INH ×4 (00:40→16:45)
[2023-05-03] MEDS: AMLODIPINE 5 MG TABLET GT (09:01)
[2023-05-03] MEDS: FUROSEMIDE 20 MG TABLET GT (09:02)
[2023-05-03] MEDS: FAMOTIDINE 20 MG TABLET GT ×2 (09:02→20:44)
[2023-05-03] MEDS: SENNOSIDES 8.6 MG TABLET GT ×2 (09:02→20:44)
[2023-05-03] MEDS: INSULIN REGULAR, HUMAN 100 UNIT/ML VIAL SC (12:10)
[2023-05-03] MEDS: INSULIN GLARGINE 100 UNIT/ML INSULN.PEN 14 UNIT SC (17:24)
[2023-05-03] MEDS: DOXAZOSIN 2 MG TABLET 4 MG GT (20:44)
[2023-05-04] VITALS (9 sets, daily range): BP systolic 122–138; BP diastolic 68–81; PULSE 72–84; RESP 18–27; TEMP 36.4–36.6; O2SAT 97–100
[2023-05-04] MEDS: IPRATROPIUM/ALBUTEROL 3 ML AMPUL.NEB INH ×4 (01:00→19:15)
[2023-05-04] MEDS: AMLODIPINE 5 MG TABLET GT (08:08)
[2023-05-04] MEDS: FAMOTIDINE 20 MG TABLET GT ×2 (08:08→20:31)
[2023-05-04] MEDS: FUROSEMIDE 20 MG TABLET GT (08:08)
[2023-05-04] MEDS: SENNOSIDES 8.6 MG TABLET GT ×2 (08:09→20:31)
--- NOTE | 2023-05-04 10:29 | CHAP ---
Patient was visited by the Spiritual Care Volunteer who prayed for them. (Volunteer was in the hospital from 09:00-10:29).
[2023-05-04] MEDS: INSULIN REGULAR, HUMAN 100 UNIT/ML VIAL SC (11:53)
[2023-05-04] MEDS: INSULIN GLARGINE 100 UNIT/ML INSULN.PEN 14 UNIT SC (17:07)
[2023-05-04] MEDS: DOXAZOSIN 2 MG TABLET 4 MG GT (20:30)
[2023-05-05] VITALS (10 sets, daily range): BP systolic 115–131; BP diastolic 73–84; PULSE 64–89; RESP 18–25; TEMP 36.1–36.6; O2SAT 97–100
[2023-05-05] MEDS: IPRATROPIUM/ALBUTEROL 3 ML AMPUL.NEB INH ×4 (00:45→19:30)
[2023-05-05] MEDS: FUROSEMIDE 20 MG TABLET GT (08:56)
[2023-05-05] MEDS: FAMOTIDINE 20 MG TABLET GT ×2 (08:56→20:07)
[2023-05-05] MEDS: AMLODIPINE 5 MG TABLET GT (08:56)
[2023-05-05] MEDS: SENNOSIDES 8.6 MG TABLET GT ×2 (08:57→20:07)
[2023-05-05] MEDS: INSULIN GLARGINE 100 UNIT/ML INSULN.PEN 14 UNIT SC (17:37)
[2023-05-05] MEDS: DOXAZOSIN 2 MG TABLET 4 MG GT (20:06)
[2023-05-06] VITALS (9 sets, daily range): BP systolic 118–137; BP diastolic 70–82; PULSE 73–84; RESP 18–25; TEMP 36.3–36.6; O2SAT 97–100
[2023-05-06] MEDS: IPRATROPIUM/ALBUTEROL 3 ML AMPUL.NEB INH ×4 (00:40→18:24)
[2023-05-06] MEDS: FAMOTIDINE 20 MG TABLET GT ×2 (08:03→20:21)
[2023-05-06] MEDS: FUROSEMIDE 20 MG TABLET GT (08:03)
[2023-05-06] MEDS: SENNOSIDES 8.6 MG TABLET GT ×2 (08:03→20:21)
[2023-05-06] MEDS: AMLODIPINE 5 MG TABLET GT (08:03)
[2023-05-06] MEDS: INSULIN REGULAR, HUMAN 100 UNIT/ML VIAL SC (12:10)
--- NOTE | 2023-05-06 16:14 | ESPR_ITS ---
Progress Note - SubAcute SUBJECTIVE Fever:: none Shortness of Breath:: none GI:: no complaints Pain:: none OBJECTIVE Most recent vital signs: Last Vital Signs Temp 97.3 F 05/06/23 11:47 Pulse 76 05/06/23 13:20 Resp 20 05/06/23 13:20 BP 128/78 05/06/23 11:47 Pulse Ox 98 05/06/23 13:20 O2 Del Method Mechanical Ventilation 05/05/23 06:00 FiO2 25 05/06/23 13:20 Neurological:: awake Speech:: none Answers questions:: no Respiratory:: shallow breathing Cardiovascular: RRR Abdomen: soft and nontender Extremities:: deformities Decubitus:: improved Tracheostomy:: to ventilator Feeding per:: G tube Complaints:: none ASSESSMENT & PLAN Assessment: Pt. has certainly been awake and eye tracking some. Diagnosis and treatment reviewed. Ventilator settings reviewed and pt started was on weaning with Pressure support but after acute infection back on ventilator continuously till he settles down when we will again attempt weaning. Plan: Current treatment as ongoing
[2023-05-06] MEDS: INSULIN GLARGINE 100 UNIT/ML INSULN.PEN 14 UNIT SC (17:25)
[2023-05-06] MEDS: DOXAZOSIN 2 MG TABLET 4 MG GT (20:20)
[2023-05-07] VITALS (9 sets, daily range): BP systolic 115–136; BP diastolic 69–84; PULSE 67–81; RESP 18–25; TEMP 36.3; O2SAT 97–100
[2023-05-07] MEDS: IPRATROPIUM/ALBUTEROL 3 ML AMPUL.NEB INH ×4 (00:01→18:15)
[2023-05-07] MEDS: INSULIN REGULAR, HUMAN 100 UNIT/ML VIAL SC (05:10)
[2023-05-07] MEDS: FAMOTIDINE 20 MG TABLET GT ×2 (08:29→20:57)
[2023-05-07] MEDS: SENNOSIDES 8.6 MG TABLET GT ×2 (08:29→20:57)
[2023-05-07] MEDS: AMLODIPINE 5 MG TABLET GT (08:29)
[2023-05-07] MEDS: FUROSEMIDE 20 MG TABLET GT (08:29)
[2023-05-07] MEDS: INSULIN GLARGINE 100 UNIT/ML INSULN.PEN 14 UNIT SC (18:07)
[2023-05-07] MEDS: DOXAZOSIN 2 MG TABLET 4 MG GT (20:57)
--- NOTE | 2023-05-07 22:03 | PC.CWCCOMPLE ---
[employer] Pharmacist monthly MRR
--- NOTE | 2023-05-07 22:03 | PC.CWCCOMPLE ---
Emergency Department Coordinator Pharmacist monthly MRR
[2023-05-08] VITALS (9 sets, daily range): BP systolic 117–150; BP diastolic 70–91; PULSE 72–79; RESP 18–22; TEMP 36.3–36.7; O2SAT 97–100
[2023-05-08] MEDS: IPRATROPIUM/ALBUTEROL 3 ML AMPUL.NEB INH ×3 (00:40→12:08)
[2023-05-08] MEDS: AMLODIPINE 5 MG TABLET GT (08:09)
[2023-05-08] MEDS: FAMOTIDINE 20 MG TABLET GT ×2 (08:10→21:00)
[2023-05-08] MEDS: SENNOSIDES 8.6 MG TABLET GT ×2 (08:11→21:00)
[2023-05-08] MEDS: FUROSEMIDE 20 MG TABLET GT (08:11)
--- NOTE | 2023-05-08 09:50 | ESPR_ITS ---
Progress Note - SubAcute SUBJECTIVE Fever:: none Shortness of Breath:: none GI:: no complaints Pain:: none OBJECTIVE Most recent vital signs: Last Vital Signs Temp 97.4 F 05/08/23 05:54 Pulse 73 05/08/23 08:09 Resp 22 H 05/08/23 05:54 BP 117/70 05/08/23 08:09 Pulse Ox 99 05/08/23 05:54 O2 Del Method Mechanical Ventilation 05/07/23 16:52 FiO2 25 05/08/23 00:40 Neurological:: awake Speech:: none Answers questions:: no Respiratory:: shallow breathing Cardiovascular: RRR Abdomen: soft and nontender Extremities:: deformities Decubitus:: improved Tracheostomy:: to ventilator Feeding per:: G tube Complaints:: none ASSESSMENT & PLAN Assessment: Pt. has certainly been awake and eye tracking some. Diagnosis and treatment reviewed. Ventilator settings reviewed and pt started was on weaning with Pressure support but after acute infection back on ventilator continuously till he settles down when we will again attempt weaning. Plan: Current treatment as ongoing
[2023-05-08] MEDS: INSULIN REGULAR, HUMAN 100 UNIT/ML VIAL SC (11:50)
[2023-05-08] MEDS: INSULIN GLARGINE 100 UNIT/ML INSULN.PEN 14 UNIT SC (17:53)
[2023-05-08] MEDS: DOXAZOSIN 2 MG TABLET 4 MG GT (21:00)
[2023-05-09] VITALS (9 sets, daily range): BP systolic 100–138; BP diastolic 63–82; PULSE 62–84; RESP 18–26; TEMP 36.4–36.9; O2SAT 97–100
[2023-05-09] MEDS: IPRATROPIUM/ALBUTEROL 3 ML AMPUL.NEB INH ×4 (00:41→18:16)
[2023-05-09 06:27] LABS: Glucose,Fasting 131 mg/dL (74-106)
[2023-05-09] MEDS: AMLODIPINE 5 MG TABLET GT (09:45)
[2023-05-09] MEDS: FAMOTIDINE 20 MG TABLET GT ×2 (09:49→21:41)
[2023-05-09] MEDS: FUROSEMIDE 20 MG TABLET GT (09:51)
[2023-05-09] MEDS: SENNOSIDES 8.6 MG TABLET GT ×2 (09:52→21:41)
--- NOTE | 2023-05-09 10:08 | PC.NURSE ---
made aware of fasting glucose results, no new orders at this time.
--- NOTE | 2023-05-09 14:55 | PC.SS ---
Resident is laying in bed with head of the bed elevated with call light properly placed with no signs of distress. Resident is well groomed and appears comfortable. Resident is total care unable to make needs known, family plans to take him home once he is off ventilator. Resident has no changes in care or condition, resident to remain in current care and continue to be e
--- NOTE | 2023-05-09 14:57 | PC.SS ---
Resident is laying in bed with head of the bed elevated with call light properly placed with no signs of distress. Resident is well groomed and appears comfortable. Resident is total care unable to make needs known. Resident has no changes in care or condition, resident to remain in current care until goals for DC are met. Goal is for resident to be off ventilator to be able to return home with family. and continue to be evaluated as appropriate for DC to lower level of care.
--- NOTE | 2023-05-09 15:33 | PC.SS ---
Spoke with resident Harper, she expressed her concern with resident current fungal toe nails and L hand middle finger nail. Concern has been brought to DON, and IP. Harper will be updated once a plan becomes available with MD. Harper also questioned resident vent settings, she would like to take resident home soon. This SSD will assist family with DC planning once resident meets goals for DC planning. SSD will speak with MD about possibility of resident continues vent weaning. Family will be made aware of any updates.
--- NOTE | 2023-05-09 17:28 | PC.NURSE ---
in to see resident and made aware of resident fungal to nails of feet and hands, new order obtained for fluconozole 200mg via PGT daily x 21 days for fungal to nails of feet and hands, re-eval with , RP made aware.
[2023-05-09] MEDS: INSULIN GLARGINE 100 UNIT/ML INSULN.PEN 14 UNIT SC (17:51)
[2023-05-09] MEDS: INSULIN REGULAR, HUMAN 100 UNIT/ML VIAL SC ×2 (17:52)
[2023-05-09] MEDS: DOXAZOSIN 2 MG TABLET 4 MG GT (21:40)
[2023-05-10] VITALS (9 sets, daily range): BP systolic 120–158; BP diastolic 68–88; PULSE 53–82; RESP 18–27; TEMP 36.2–36.8; O2SAT 98–100
[2023-05-10] MEDS: IPRATROPIUM/ALBUTEROL 3 ML AMPUL.NEB INH ×4 (00:07→18:30)
[2023-05-10] MEDS: INSULIN REGULAR, HUMAN 100 UNIT/ML VIAL SC ×2 (06:00→11:42)
[2023-05-10] MEDS: AMLODIPINE 5 MG TABLET GT (09:07)
[2023-05-10] MEDS: FAMOTIDINE 20 MG TABLET GT ×2 (09:08→20:54)
[2023-05-10] MEDS: FUROSEMIDE 20 MG TABLET GT (09:10)
[2023-05-10] MEDS: SENNOSIDES 8.6 MG TABLET GT ×2 (09:10→20:54)
[2023-05-10] MEDS: FLUCONAZOLE 200 MG TABLET GT (09:10)
--- NOTE | 2023-05-10 11:15 | PC.SS ---
[facility] here for oral x-rays, resident tolerated and was cooperating during x-rays. Resident will have a follow up bedside visit with dentist.
[2023-05-10] MEDS: INSULIN GLARGINE 100 UNIT/ML INSULN.PEN 14 UNIT SC (17:02)
--- NOTE | 2023-05-10 17:18 | PC.NURSE ---
Resident on fluconozole 200mg via PGT daily, for fungal infection to nails of feet and hands, no adverse reactions or side effects to note, fluids taken adequate, plan of care ongoing as ordered. Call light in place and within reach.
[2023-05-10] MEDS: DOXAZOSIN 2 MG TABLET 4 MG GT (20:54)
[2023-05-11] VITALS (9 sets, daily range): BP systolic 113–127; BP diastolic 69–81; PULSE 72–85; RESP 20–27; TEMP 36.2–36.7; O2SAT 97–100
[2023-05-11] MEDS: IPRATROPIUM/ALBUTEROL 3 ML AMPUL.NEB INH ×4 (01:10→18:10)
[2023-05-11] MEDS: AMLODIPINE 5 MG TABLET GT (08:15)
[2023-05-11] MEDS: SENNOSIDES 8.6 MG TABLET GT ×2 (08:16→21:31)
[2023-05-11] MEDS: FAMOTIDINE 20 MG TABLET GT ×2 (08:16→21:31)
[2023-05-11] MEDS: FLUCONAZOLE 200 MG TABLET GT (08:16)
[2023-05-11] MEDS: FUROSEMIDE 20 MG TABLET GT (08:16)
--- NOTE | 2023-05-11 10:44 | CHAP ---
Patient was visited by the Spiritual Care Volunteer who prayed for them. (Volunteer was in [facility] from 9:35-10:44).
[2023-05-11] MEDS: INSULIN REGULAR, HUMAN 100 UNIT/ML VIAL SC (11:38)
--- NOTE | 2023-05-11 12:55 | CHAP ---
Patient was visited by the Spiritual Care Volunteer who prayed for them. (Volunteer was in [facility] from 10:15-12:55).
[2023-05-11] MEDS: INSULIN GLARGINE 100 UNIT/ML INSULN.PEN 14 UNIT SC (18:04)
[2023-05-11] MEDS: DOXAZOSIN 2 MG TABLET 4 MG GT (21:31)
[2023-05-12] VITALS (10 sets, daily range): BP systolic 120–148; BP diastolic 61–80; PULSE 56–80; RESP 13–24; TEMP 36.2–36.4; O2SAT 97–100
[2023-05-12] MEDS: IPRATROPIUM/ALBUTEROL 3 ML AMPUL.NEB INH ×4 (00:10→18:30)
[2023-05-12] MEDS: AMLODIPINE 5 MG TABLET GT (09:08)
[2023-05-12] MEDS: FAMOTIDINE 20 MG TABLET GT ×2 (09:09→20:45)
[2023-05-12] MEDS: FLUCONAZOLE 200 MG TABLET GT (09:09)
[2023-05-12] MEDS: FUROSEMIDE 20 MG TABLET GT (09:10)
[2023-05-12] MEDS: SENNOSIDES 8.6 MG TABLET GT ×2 (09:10→20:45)
[2023-05-12] MEDS: INSULIN REGULAR, HUMAN 100 UNIT/ML VIAL SC (17:19)
[2023-05-12] MEDS: INSULIN GLARGINE 100 UNIT/ML INSULN.PEN 14 UNIT SC (17:19)
--- NOTE | 2023-05-12 18:20 | ESPR_ITS ---
Progress Note - SubAcute SUBJECTIVE Fever:: none Shortness of Breath:: none GI:: no complaints Pain:: none OBJECTIVE Most recent vital signs: Last Vital Signs Temp 97.2 F 05/12/23 12:00 Pulse 61 05/12/23 12:00 Resp 24 H 05/12/23 12:00 BP 120/61 05/12/23 12:00 Pulse Ox 100 05/12/23 11:40 O2 Del Method Mechanical Ventilation 05/11/23 18:00 FiO2 25 05/12/23 11:40 Neurological:: awake Speech:: none Answers questions:: no Respiratory:: shallow breathing Cardiovascular: RRR Abdomen: soft and nontender Extremities:: deformities Decubitus:: improved Tracheostomy:: to ventilator Feeding per:: G tube Complaints:: none ASSESSMENT & PLAN Assessment: Pt. has certainly been awake and eye tracking some. Diagnosis and treatment reviewed. Ventilator settings reviewed and pt started was on weaning with Pressure support but after acute infection back on ventilator continuously till he settles down when we will again attempt weaning. Plan: Current treatment as ongoing
[2023-05-12] MEDS: DOXAZOSIN 2 MG TABLET 4 MG GT (20:44)
[2023-05-13] VITALS (9 sets, daily range): BP systolic 100–128; BP diastolic 61–72; PULSE 64–85; RESP 21–28; TEMP 36.2–36.6; O2SAT 97–100
[2023-05-13] MEDS: IPRATROPIUM/ALBUTEROL 3 ML AMPUL.NEB INH ×4 (00:31→18:20)
[2023-05-13] MEDS: INSULIN REGULAR, HUMAN 100 UNIT/ML VIAL SC ×3 (05:36→17:08)
[2023-05-13] MEDS: SENNOSIDES 8.6 MG TABLET GT ×2 (08:58→20:19)
[2023-05-13] MEDS: AMLODIPINE 5 MG TABLET GT (08:58)
[2023-05-13] MEDS: FUROSEMIDE 20 MG TABLET GT (08:58)
[2023-05-13] MEDS: FAMOTIDINE 20 MG TABLET GT ×2 (08:58→20:19)
[2023-05-13] MEDS: FLUCONAZOLE 200 MG TABLET GT (08:58)
[2023-05-13] MEDS: ACETAMINOPHEN 325 MG/10.15 ML 650 MG GT ×2 (14:25→21:08)
[2023-05-13] MEDS: INSULIN GLARGINE 100 UNIT/ML INSULN.PEN 14 UNIT SC (17:08)
--- NOTE | 2023-05-13 19:05 | PC.NURSE ---
Resident continues on fluconozole 200mg via PGT daily, for fungal infection to nails of feet and hands, no adverse reactions or side effects to note, fluids taken adequate, plan of care ongoing as ordered. Call light in place and within reach.
[2023-05-13] MEDS: DOXAZOSIN 2 MG TABLET 4 MG GT (20:19)
[2023-05-14] VITALS (8 sets, daily range): BP systolic 109–139; BP diastolic 68–85; PULSE 68–80; RESP 19–24; TEMP 36.1–36.4; O2SAT 98–100
[2023-05-14] MEDS: IPRATROPIUM/ALBUTEROL 3 ML AMPUL.NEB INH ×4 (01:10→18:00)
[2023-05-14] MEDS: AMLODIPINE 5 MG TABLET GT (09:10)
[2023-05-14] MEDS: SENNOSIDES 8.6 MG TABLET GT ×2 (09:11→21:08)
[2023-05-14] MEDS: FAMOTIDINE 20 MG TABLET GT ×2 (09:11→21:07)
[2023-05-14] MEDS: FLUCONAZOLE 200 MG TABLET GT (09:11)
[2023-05-14] MEDS: FUROSEMIDE 20 MG TABLET GT (09:11)
--- NOTE | 2023-05-14 11:54 | PCS.ST ---
ST will defer continued swallow tx as pt did have positive blue in trach secretions following blue dye secretions testing. If/when pt is weaned from vent please order ST for PMV assessemnt for better potential for swallowing safety
[2023-05-14] MEDS: INSULIN REGULAR, HUMAN 100 UNIT/ML VIAL SC (12:10)
[2023-05-14] MEDS: INSULIN GLARGINE 100 UNIT/ML INSULN.PEN 14 UNIT SC (17:34)
[2023-05-14] MEDS: DOXAZOSIN 2 MG TABLET 4 MG GT (21:07)
[2023-05-15] VITALS (8 sets, daily range): BP systolic 105–140; BP diastolic 62–82; PULSE 71–91; RESP 18–27; TEMP 36.3–36.7; O2SAT 98–100
[2023-05-15] MEDS: IPRATROPIUM/ALBUTEROL 3 ML AMPUL.NEB INH ×4 (07:37→18:01)
[2023-05-15] MEDS: AMLODIPINE 5 MG TABLET GT (09:05)
[2023-05-15] MEDS: FUROSEMIDE 20 MG TABLET GT (09:06)
[2023-05-15] MEDS: FLUCONAZOLE 200 MG TABLET GT (09:06)
[2023-05-15] MEDS: FAMOTIDINE 20 MG TABLET GT ×2 (09:06→20:06)
[2023-05-15] MEDS: SENNOSIDES 8.6 MG TABLET GT ×2 (09:06→20:06)
[2023-05-15] MEDS: INSULIN REGULAR, HUMAN 100 UNIT/ML VIAL SC ×3 (11:32→23:51)
--- NOTE | 2023-05-15 14:37 | CHAP ---
10:30 AM Visited by spiritual care volunteer Provided prayer for Patient.
[2023-05-15] MEDS: INSULIN GLARGINE 100 UNIT/ML INSULN.PEN 14 UNIT SC (17:02)
[2023-05-15] MEDS: DOXAZOSIN 2 MG TABLET 4 MG GT (20:06)
[2023-05-16] VITALS (8 sets, daily range): BP systolic 93–125; BP diastolic 60–84; PULSE 65–83; RESP 18–31; TEMP 36.3–36.9; O2SAT 98–100
[2023-05-16] MEDS: IPRATROPIUM/ALBUTEROL 3 ML AMPUL.NEB INH ×3 (00:12→18:00)
[2023-05-16] MEDS: FLUCONAZOLE 200 MG TABLET GT (09:46)
[2023-05-16] MEDS: FAMOTIDINE 20 MG TABLET GT ×2 (09:46→21:25)
[2023-05-16] MEDS: FUROSEMIDE 20 MG TABLET GT (09:47)
[2023-05-16] MEDS: SENNOSIDES 8.6 MG TABLET GT ×2 (09:47→21:25)
[2023-05-16] MEDS: INSULIN REGULAR, HUMAN 100 UNIT/ML VIAL SC ×2 (11:57→17:00)
--- NOTE | 2023-05-16 16:16 | PC.SS ---
Room visit: Resident is laying in bed with head of the bed elevated with call light properly placed with no bogdan of distress. Resident has no changes in care or condition, resident will remain in current care until RT goals are met with ventilator. Family visits but unable to care for resident at home. SSD will continue to monitor resident for any changes in mood or behavior.
[2023-05-16] MEDS: INSULIN GLARGINE 100 UNIT/ML INSULN.PEN 14 UNIT SC (17:01)
[2023-05-16] MEDS: DOXAZOSIN 2 MG TABLET 4 MG GT (21:25)
--- NOTE | 2023-05-16 21:39 | ESPR_ITS ---
Progress Note - SubAcute SUBJECTIVE Fever:: none Shortness of Breath:: none GI:: no complaints Pain:: none OBJECTIVE Most recent vital signs: Last Vital Signs Temp 98.4 F 05/16/23 18:00 Pulse 81 05/16/23 18:00 Resp 23 H 05/16/23 18:00 BP 118/76 05/16/23 18:00 Pulse Ox 100 05/16/23 18:00 O2 Del Method Nasal Cannula 05/14/23 12:00 FiO2 25 05/16/23 13:10 Neurological:: awake Speech:: none Answers questions:: no Respiratory:: shallow breathing Cardiovascular: RRR Abdomen: soft and nontender Extremities:: deformities Decubitus:: improved Tracheostomy:: to ventilator Feeding per:: G tube Complaints:: none ASSESSMENT & PLAN Assessment: Pt. has certainly been awake and eye tracking some. Diagnosis and treatment reviewed. Ventilator settings reviewed and pt started was on weaning with Pressure support but after acute infection back on ventilator continuously till he settles down when we will again attempt weaning. Plan: Current treatment as ongoing
[2023-05-17] VITALS (11 sets, daily range): BP systolic 105–137; BP diastolic 66–82; PULSE 79–101; RESP 18–30; TEMP 36.3–38.9; O2SAT 95–100
[2023-05-17] MEDS: IPRATROPIUM/ALBUTEROL 3 ML AMPUL.NEB INH ×4 (02:00→19:00)
[2023-05-17] MEDS: FAMOTIDINE 20 MG TABLET GT ×2 (09:37→20:45)
[2023-05-17] MEDS: AMLODIPINE 5 MG TABLET GT (09:37)
[2023-05-17] MEDS: FLUCONAZOLE 200 MG TABLET GT (09:38)
[2023-05-17] MEDS: FUROSEMIDE 20 MG TABLET GT (09:39)
[2023-05-17] MEDS: SENNOSIDES 8.6 MG TABLET GT ×2 (09:39→20:46)
[2023-05-17] MEDS: INSULIN REGULAR, HUMAN 100 UNIT/ML VIAL SC ×2 (11:31→18:18)
[2023-05-17] MEDS: ACETAMINOPHEN 325 MG TABLET 650 MG GT (15:15)
--- NOTE | 2023-05-17 15:59 | PC.NURSE ---
Increased respiratory rate and increased HR noted. Repositioned, rectal temperature checked at 1512. Resident temp 102.0, initiated cooling measures. Tylenol will be given for fever as needed. Will notified MD. Decreased respirations (28) from 38 once patient was turned and repositioned. Will continue to monitor.
[2023-05-17] MEDS: INSULIN GLARGINE 100 UNIT/ML INSULN.PEN 14 UNIT SC (18:20)
[2023-05-17] MEDS: DOXAZOSIN 2 MG TABLET 4 MG GT (20:46)
[2023-05-18] VITALS (9 sets, daily range): BP systolic 109–132; BP diastolic 70–77; PULSE 76–91; RESP 20–32; TEMP 36.3–36.6; O2SAT 95–100
[2023-05-18] MEDS: INSULIN REGULAR, HUMAN 100 UNIT/ML VIAL SC ×4 (00:13→17:26)
[2023-05-18] MEDS: IPRATROPIUM/ALBUTEROL 3 ML AMPUL.NEB INH ×4 (00:51→20:10)
[2023-05-18] MEDS: FAMOTIDINE 20 MG TABLET GT ×2 (08:17→20:25)
[2023-05-18] MEDS: AMLODIPINE 5 MG TABLET GT (08:17)
[2023-05-18] MEDS: FLUCONAZOLE 200 MG TABLET GT (08:17)
[2023-05-18] MEDS: SENNOSIDES 8.6 MG TABLET GT ×2 (08:18→20:25)
[2023-05-18] MEDS: FUROSEMIDE 20 MG TABLET GT (08:18)
[2023-05-18] MEDS: INSULIN GLARGINE 100 UNIT/ML INSULN.PEN 14 UNIT SC (17:26)
[2023-05-18] MEDS: DOXAZOSIN 2 MG TABLET 4 MG GT (20:24)
[2023-05-19] VITALS (9 sets, daily range): BP systolic 107–131; BP diastolic 74–85; PULSE 69–94; RESP 18–30; TEMP 36–37; O2SAT 98–100
[2023-05-19] MEDS: IPRATROPIUM/ALBUTEROL 3 ML AMPUL.NEB INH ×3 (00:23→17:30)
[2023-05-19] MEDS: INSULIN REGULAR, HUMAN 100 UNIT/ML VIAL SC ×3 (05:30→18:41)
[2023-05-19] MEDS: FAMOTIDINE 20 MG TABLET GT ×2 (09:27→20:15)
[2023-05-19] MEDS: AMLODIPINE 5 MG TABLET GT (09:27)
[2023-05-19] MEDS: FUROSEMIDE 20 MG TABLET GT (09:28)
[2023-05-19] MEDS: SENNOSIDES 8.6 MG TABLET GT ×2 (09:28→20:15)
[2023-05-19] MEDS: FLUCONAZOLE 200 MG TABLET GT (09:28)
[2023-05-19] MEDS: INSULIN GLARGINE 100 UNIT/ML INSULN.PEN 14 UNIT SC (18:41)
[2023-05-19] MEDS: DOXAZOSIN 2 MG TABLET 4 MG GT (20:14)
[2023-05-20] VITALS (9 sets, daily range): BP systolic 118–133; BP diastolic 72–80; PULSE 74–89; RESP 18–35; TEMP 36.4–36.7; O2SAT 97–100
[2023-05-20] MEDS: IPRATROPIUM/ALBUTEROL 3 ML AMPUL.NEB INH ×4 (00:52→18:10)
[2023-05-20] MEDS: AMLODIPINE 5 MG TABLET GT (08:37)
[2023-05-20] MEDS: FLUCONAZOLE 200 MG TABLET GT (08:39)
[2023-05-20] MEDS: FAMOTIDINE 20 MG TABLET GT ×2 (08:39→20:18)
[2023-05-20] MEDS: FUROSEMIDE 20 MG TABLET GT (08:39)
[2023-05-20] MEDS: SENNOSIDES 8.6 MG TABLET GT ×2 (08:40→20:18)
[2023-05-20] MEDS: INSULIN REGULAR, HUMAN 100 UNIT/ML VIAL SC (11:52)
[2023-05-20] MEDS: INSULIN GLARGINE 100 UNIT/ML INSULN.PEN 14 UNIT SC (17:40)
[2023-05-20] MEDS: DOXAZOSIN 2 MG TABLET 4 MG GT (20:17)
--- NOTE | 2023-05-20 21:13 | ESPR_ITS ---
Progress Note - SubAcute SUBJECTIVE Fever:: none Shortness of Breath:: none GI:: no complaints Pain:: none OBJECTIVE Most recent vital signs: Last Vital Signs Temp 97.7 F 05/20/23 17:57 Pulse 74 05/20/23 17:57 Resp 30 H 05/20/23 17:57 BP 131/72 H 05/20/23 17:57 Pulse Ox 98 05/20/23 17:57 O2 Del Method Mechanical Ventilation 05/17/23 06:00 FiO2 25 05/20/23 11:07 Neurological:: awake Speech:: none Answers questions:: no Respiratory:: shallow breathing Cardiovascular: RRR Abdomen: soft and nontender Extremities:: deformities Decubitus:: improved Tracheostomy:: to ventilator Feeding per:: G tube Complaints:: none ASSESSMENT & PLAN Assessment: Pt. has certainly been awake and eye tracking some. Diagnosis and treatment reviewed. Ventilator settings reviewed and pt started was on weaning with Pressure support but after acute infection back on ventilator continuously till he settles down when we will again attempt weaning. Plan: Current treatment as ongoing
[2023-05-21] VITALS (9 sets, daily range): BP systolic 111–138; BP diastolic 73–86; PULSE 72–91; RESP 18–30; TEMP 36.3–36.4; O2SAT 96–100
[2023-05-21] MEDS: IPRATROPIUM/ALBUTEROL 3 ML AMPUL.NEB INH ×4 (00:50→19:15)
[2023-05-21] MEDS: AMLODIPINE 5 MG TABLET GT (09:29)
[2023-05-21] MEDS: FLUCONAZOLE 200 MG TABLET GT (09:30)
[2023-05-21] MEDS: SENNOSIDES 8.6 MG TABLET GT ×2 (09:30→20:10)
[2023-05-21] MEDS: FUROSEMIDE 20 MG TABLET GT (09:30)
[2023-05-21] MEDS: FAMOTIDINE 20 MG TABLET GT ×2 (09:30→20:10)
[2023-05-21] MEDS: INSULIN REGULAR, HUMAN 100 UNIT/ML VIAL SC ×2 (12:12→17:22)
--- NOTE | 2023-05-21 13:18 | CHAP ---
During my visit I Prayed and talk with patient.
[2023-05-21] MEDS: INSULIN GLARGINE 100 UNIT/ML INSULN.PEN 14 UNIT SC (17:21)
[2023-05-21] MEDS: DOXAZOSIN 2 MG TABLET 4 MG GT (20:09)
[2023-05-22] VITALS (9 sets, daily range): BP systolic 106–130; BP diastolic 68–80; PULSE 74–88; RESP 19–35; TEMP 36.4–36.9; O2SAT 95–100
[2023-05-22] MEDS: IPRATROPIUM/ALBUTEROL 3 ML AMPUL.NEB INH ×4 (01:20→18:10)
[2023-05-22] MEDS: INSULIN REGULAR, HUMAN 100 UNIT/ML VIAL SC ×3 (05:22→17:18)
[2023-05-22] MEDS: AMLODIPINE 5 MG TABLET GT (09:22)
[2023-05-22] MEDS: FUROSEMIDE 20 MG TABLET GT (09:23)
[2023-05-22] MEDS: FAMOTIDINE 20 MG TABLET GT ×2 (09:23→21:15)
[2023-05-22] MEDS: FLUCONAZOLE 200 MG TABLET GT (09:23)
[2023-05-22] MEDS: SENNOSIDES 8.6 MG TABLET GT ×2 (09:23→21:15)
--- NOTE | 2023-05-22 13:40 | CHAP ---
11:00 AM Visited by spiritual care volunteer Provided prayer for Patient.
--- NOTE | 2023-05-22 15:28 | PC.SS ---
Room visit: Resident is laying in bed with head of the bed elevated with call light properly placed with no signs of distress. Resident will remain in current care as there are no changes in care or condition. This SSD will continue to make daily contact with resident and offer emotional support.
[2023-05-22] MEDS: INSULIN GLARGINE 100 UNIT/ML INSULN.PEN 14 UNIT SC (17:17)
[2023-05-22] MEDS: DOXAZOSIN 2 MG TABLET 4 MG GT (21:15)
[2023-05-23] VITALS (9 sets, daily range): BP systolic 105–123; BP diastolic 69–78; PULSE 67–88; RESP 22–30; TEMP 36.1–36.8; O2SAT 96–100
[2023-05-23] MEDS: IPRATROPIUM/ALBUTEROL 3 ML AMPUL.NEB INH ×4 (00:45→18:50)
[2023-05-23 04:50] LABS: Glucose,Fasting 163 mg/dL (74-106)
[2023-05-23] MEDS: INSULIN REGULAR, HUMAN 100 UNIT/ML VIAL SC ×2 (06:40→17:25)
[2023-05-23] MEDS: AMLODIPINE 5 MG TABLET GT (09:06)
[2023-05-23] MEDS: FLUCONAZOLE 200 MG TABLET GT (09:07)
[2023-05-23] MEDS: FAMOTIDINE 20 MG TABLET GT ×2 (09:07→20:14)
[2023-05-23] MEDS: FUROSEMIDE 20 MG TABLET GT (09:08)
[2023-05-23] MEDS: SENNOSIDES 8.6 MG TABLET GT ×2 (09:08→20:15)
[2023-05-23] MEDS: INSULIN GLARGINE 100 UNIT/ML INSULN.PEN 14 UNIT SC (17:26)
[2023-05-23] MEDS: DOXAZOSIN 2 MG TABLET 4 MG GT (20:14)
[2023-05-24] VITALS (9 sets, daily range): BP systolic 100–133; BP diastolic 67–80; PULSE 72–86; RESP 18–30; TEMP 36–36.6; O2SAT 96–100
[2023-05-24] MEDS: IPRATROPIUM/ALBUTEROL 3 ML AMPUL.NEB INH ×4 (00:40→18:15)
[2023-05-24] MEDS: INSULIN REGULAR, HUMAN 100 UNIT/ML VIAL SC ×3 (06:33→17:49)
[2023-05-24] MEDS: AMLODIPINE 5 MG TABLET GT (09:27)
[2023-05-24] MEDS: FLUCONAZOLE 200 MG TABLET GT (09:28)
[2023-05-24] MEDS: FAMOTIDINE 20 MG TABLET GT ×2 (09:28→21:15)
[2023-05-24] MEDS: FUROSEMIDE 20 MG TABLET GT (09:29)
[2023-05-24] MEDS: SENNOSIDES 8.6 MG TABLET GT ×2 (09:29→21:15)
[2023-05-24] MEDS: INSULIN GLARGINE 100 UNIT/ML INSULN.PEN 14 UNIT SC (17:49)
--- NOTE | 2023-05-24 20:43 | ESPR_ITS ---
Progress Note - SubAcute SUBJECTIVE Fever:: none Shortness of Breath:: none GI:: no complaints Pain:: none OBJECTIVE Most recent vital signs: Last Vital Signs Temp 97.5 F 05/24/23 18:00 Pulse 80 05/24/23 18:00 Resp 29 H 05/24/23 18:00 BP 133/80 H 05/24/23 18:00 Pulse Ox 97 05/24/23 18:00 O2 Del Method Mechanical Ventilation 05/24/23 18:00 FiO2 25 05/24/23 12:18 Neurological:: awake Speech:: none Answers questions:: no Respiratory:: shallow breathing Cardiovascular: RRR Abdomen: soft and nontender Extremities:: deformities Decubitus:: improved Tracheostomy:: to ventilator Feeding per:: G tube Complaints:: none ASSESSMENT & PLAN Assessment: Pt. has certainly been awake and eye tracking some. Diagnosis and treatment reviewed. Ventilator settings reviewed and pt started was on weaning with Pressure support but after acute infection back on ventilator continuously till he settles down when we will again attempt weaning. Plan: Current treatment as ongoing
[2023-05-24] MEDS: DOXAZOSIN 2 MG TABLET 4 MG GT (21:15)
[2023-05-25] VITALS (9 sets, daily range): BP systolic 114–152; BP diastolic 62–84; PULSE 70–87; RESP 18–30; TEMP 35.9–36.2; O2SAT 95–99
[2023-05-25] MEDS: IPRATROPIUM/ALBUTEROL 3 ML AMPUL.NEB INH ×4 (01:00→19:00)
[2023-05-25] MEDS: INSULIN REGULAR, HUMAN 100 UNIT/ML VIAL SC ×2 (06:46→17:22)
[2023-05-25] MEDS: AMLODIPINE 5 MG TABLET GT (08:52)
[2023-05-25] MEDS: FLUCONAZOLE 200 MG TABLET GT (08:53)
[2023-05-25] MEDS: FAMOTIDINE 20 MG TABLET GT ×2 (08:53→20:23)
[2023-05-25] MEDS: ACETAMINOPHEN 325 MG/10.15 ML 650 MG GT (08:54)
[2023-05-25] MEDS: SENNOSIDES 8.6 MG TABLET GT ×2 (08:54→20:23)
[2023-05-25] MEDS: FUROSEMIDE 20 MG TABLET GT (08:54)
--- NOTE | 2023-05-25 12:51 | CHAP ---
Patient was visited by the Spiritual Care Volunteer who prayed outside room. (Volunteer was in the hospital from 10:32-12:51)
[2023-05-25] MEDS: INSULIN GLARGINE 100 UNIT/ML INSULN.PEN 14 UNIT SC (17:22)
[2023-05-25] MEDS: DOXAZOSIN 2 MG TABLET 4 MG GT (20:23)
[2023-05-26] VITALS (9 sets, daily range): BP systolic 111–180; BP diastolic 72–83; PULSE 72–80; RESP 18–25; TEMP 36.5; O2SAT 98–99
[2023-05-26] MEDS: IPRATROPIUM/ALBUTEROL 3 ML AMPUL.NEB INH ×4 (02:15→18:07)
[2023-05-26] MEDS: AMLODIPINE 5 MG TABLET GT (09:03)
[2023-05-26] MEDS: SENNOSIDES 8.6 MG TABLET GT ×2 (09:03→20:12)
[2023-05-26] MEDS: FLUCONAZOLE 200 MG TABLET GT (09:03)
[2023-05-26] MEDS: FUROSEMIDE 20 MG TABLET GT (09:03)
[2023-05-26] MEDS: FAMOTIDINE 20 MG TABLET GT ×2 (09:03→20:12)
[2023-05-26] MEDS: INSULIN REGULAR, HUMAN 100 UNIT/ML VIAL SC (11:39)
[2023-05-26] MEDS: INSULIN GLARGINE 100 UNIT/ML INSULN.PEN 14 UNIT SC (17:30)
[2023-05-26] MEDS: DOXAZOSIN 2 MG TABLET 4 MG GT (20:11)
[2023-05-27] VITALS (9 sets, daily range): BP systolic 109–130; BP diastolic 65–78; PULSE 71–90; RESP 19–30; TEMP 36.1–36.5; O2SAT 98–100
[2023-05-27] MEDS: IPRATROPIUM/ALBUTEROL 3 ML AMPUL.NEB INH ×4 (00:16→18:40)
[2023-05-27] MEDS: INSULIN REGULAR, HUMAN 100 UNIT/ML VIAL SC ×2 (05:24→17:17)
[2023-05-27] MEDS: AMLODIPINE 5 MG TABLET GT (09:00)
[2023-05-27] MEDS: FLUCONAZOLE 200 MG TABLET GT (09:01)
[2023-05-27] MEDS: FAMOTIDINE 20 MG TABLET GT ×2 (09:01→20:24)
[2023-05-27] MEDS: SENNOSIDES 8.6 MG TABLET GT ×2 (09:02→20:25)
[2023-05-27] MEDS: FUROSEMIDE 20 MG TABLET GT (09:02)
[2023-05-27] MEDS: INSULIN GLARGINE 100 UNIT/ML INSULN.PEN 14 UNIT SC (17:17)
[2023-05-27] MEDS: DOXAZOSIN 2 MG TABLET 4 MG GT (20:24)
[2023-05-28] VITALS (9 sets, daily range): BP systolic 106–146; BP diastolic 66–84; PULSE 75–82; RESP 19–29; TEMP 36.1–36.8; O2SAT 93–100
[2023-05-28] MEDS: IPRATROPIUM/ALBUTEROL 3 ML AMPUL.NEB INH ×4 (00:50→18:30)
[2023-05-28] MEDS: AMLODIPINE 5 MG TABLET GT (08:07)
[2023-05-28] MEDS: FLUCONAZOLE 200 MG TABLET GT (08:08)
[2023-05-28] MEDS: FAMOTIDINE 20 MG TABLET GT ×2 (08:08→21:11)
[2023-05-28] MEDS: FUROSEMIDE 20 MG TABLET GT (08:08)
[2023-05-28] MEDS: SENNOSIDES 8.6 MG TABLET GT ×2 (08:08→21:11)
[2023-05-28] MEDS: INSULIN GLARGINE 100 UNIT/ML INSULN.PEN 14 UNIT SC (18:16)
[2023-05-28] MEDS: DOXAZOSIN 2 MG TABLET 4 MG GT (21:15)
--- NOTE | 2023-05-28 21:53 | ESPR_ITS ---
Progress Note - SubAcute SUBJECTIVE Fever:: none Shortness of Breath:: none GI:: no complaints Pain:: none OBJECTIVE Most recent vital signs: Last Vital Signs Temp 98.2 F 05/28/23 18:00 Pulse 81 05/28/23 18:30 Resp 24 H 05/28/23 18:30 BP 135/84 H 05/28/23 18:00 Pulse Ox 98 05/28/23 18:30 O2 Del Method Mechanical Ventilation 05/24/23 18:00 FiO2 25 05/28/23 18:30 Neurological:: awake Speech:: none Answers questions:: no Respiratory:: shallow breathing Cardiovascular: RRR Abdomen: soft and nontender Extremities:: deformities Decubitus:: improved Tracheostomy:: to ventilator Feeding per:: G tube Complaints:: none ASSESSMENT & PLAN Assessment: Pt. has certainly been awake and eye tracking some. Diagnosis and treatment reviewed. Ventilator settings reviewed and pt started was on weaning with Pressure support but after acute infection back on ventilator continuously till he settles down when we will again attempt weaning. Plan: Current treatment as ongoing
[2023-05-29] VITALS (9 sets, daily range): BP systolic 110–129; BP diastolic 70–77; PULSE 73–89; RESP 18–28; TEMP 36–36.8; O2SAT 97–100
[2023-05-29] MEDS: IPRATROPIUM/ALBUTEROL 3 ML AMPUL.NEB INH ×4 (02:24→19:35)
[2023-05-29] MEDS: AMLODIPINE 5 MG TABLET GT (09:37)
[2023-05-29] MEDS: FAMOTIDINE 20 MG TABLET GT ×2 (09:37→21:10)
[2023-05-29] MEDS: FLUCONAZOLE 200 MG TABLET GT (09:37)
[2023-05-29] MEDS: FUROSEMIDE 20 MG TABLET GT (09:38)
[2023-05-29] MEDS: SENNOSIDES 8.6 MG TABLET GT ×2 (09:38→21:10)
[2023-05-29] MEDS: INSULIN REGULAR, HUMAN 100 UNIT/ML VIAL SC ×2 (12:10→17:44)
--- NOTE | 2023-05-29 14:32 | CHAP ---
10:00 AM Visited by spiritual care volunteer Provided prayer for Patient.
[2023-05-29] MEDS: INSULIN GLARGINE 100 UNIT/ML INSULN.PEN 14 UNIT SC (17:44)
[2023-05-29] MEDS: DOXAZOSIN 2 MG TABLET 4 MG GT (21:09)
[2023-05-29] MEDS: ACETAMINOPHEN 325 MG/10.15 ML 650 MG GT (21:10)
[2023-05-30] VITALS (9 sets, daily range): BP systolic 106–134; BP diastolic 66–78; PULSE 66–85; RESP 21–73; TEMP 36.4–36.7; O2SAT 1–100
[2023-05-30] MEDS: IPRATROPIUM/ALBUTEROL 3 ML AMPUL.NEB INH ×4 (00:40→19:57)
[2023-05-30] MEDS: FLUCONAZOLE 200 MG TABLET GT (09:45)
[2023-05-30] MEDS: FAMOTIDINE 20 MG TABLET GT ×2 (09:45→20:20)
[2023-05-30] MEDS: SENNOSIDES 8.6 MG TABLET GT ×2 (09:46→20:20)
[2023-05-30] MEDS: FUROSEMIDE 20 MG TABLET GT (09:46)
--- NOTE | 2023-05-30 12:27 | PC.SS ---
Room visit: Resident is laying in bed watching TV with call light properly placed with no signs of distress. Resident is well groomed appears to be in good spirits with no changes in mood or behavior. Resident will remain in current care as there are no changes in care or condition. SSD will continue to make daily contact with resident and offer support as needed.
[2023-05-30] MEDS: INSULIN GLARGINE 100 UNIT/ML INSULN.PEN 14 UNIT SC (18:15)
[2023-05-30] MEDS: DOXAZOSIN 2 MG TABLET 4 MG GT (20:20)
[2023-05-31] VITALS (9 sets, daily range): BP systolic 102–152; BP diastolic 70–78; PULSE 70–86; RESP 18–26; TEMP 36.2–36.6; O2SAT 97–100
[2023-05-31] MEDS: IPRATROPIUM/ALBUTEROL 3 ML AMPUL.NEB INH ×4 (00:49→19:46)
[2023-05-31] MEDS: FAMOTIDINE 20 MG TABLET GT ×2 (09:05→20:07)
[2023-05-31] MEDS: FUROSEMIDE 20 MG TABLET GT (09:05)
[2023-05-31] MEDS: SENNOSIDES 8.6 MG TABLET GT ×2 (09:06→20:07)
[2023-05-31 09:24] LABS: Alanine Aminotransferase 21 U/L (10-49); Albumin, Serum 4.3 gm/dL (3.4-4.8); Alkaline Phosphatase 92 U/L (46-116); Aspartate Amino Transferase 19 U/L (0-34); Bilirubin,Direct 0.2 mg/dL (0.0-0.3); Bilirubin,Total 0.5 mg/dL (0.3-1.2); Total Protein 7.6 gm/dL (5.7-8.2)
--- NOTE | 2023-05-31 09:46 | PC.NURSE ---
Liver panel results are in, made aware, no new orders at this time.
[2023-05-31] MEDS: INSULIN REGULAR, HUMAN 100 UNIT/ML VIAL SC (11:38)
[2023-05-31] MEDS: INSULIN GLARGINE 100 UNIT/ML INSULN.PEN 14 UNIT SC (17:42)
[2023-05-31] MEDS: DOXAZOSIN 2 MG TABLET 4 MG GT (20:07)
[2023-06-01] VITALS (9 sets, daily range): BP systolic 110–127; BP diastolic 68–85; PULSE 72–82; RESP 18–27; TEMP 36.2–37.1; O2SAT 96–100
[2023-06-01] MEDS: INSULIN REGULAR, HUMAN 100 UNIT/ML VIAL SC ×2 (00:27→12:07)
[2023-06-01] MEDS: IPRATROPIUM/ALBUTEROL 3 ML AMPUL.NEB INH ×4 (00:42→20:10)
[2023-06-01] MEDS: FAMOTIDINE 20 MG TABLET GT ×2 (08:38→21:16)
[2023-06-01] MEDS: AMLODIPINE 5 MG TABLET GT (08:38)
[2023-06-01] MEDS: SENNOSIDES 8.6 MG TABLET GT ×2 (08:39→21:16)
[2023-06-01] MEDS: FLUCONAZOLE 200 MG TABLET GT (08:39)
[2023-06-01] MEDS: FUROSEMIDE 20 MG TABLET GT (08:39)
--- NOTE | 2023-06-01 11:04 | PC.NURSE ---
This nurse spoke to resident , resident was concern regarding visitors coming in to see resident, wants to be made aware who comes to see her , this nurse ask if there was someone in particular who she is concern who is visiting her , she stated no, per she says she feels in her heart that some family members who come to see resident are not coming in with good intention, this nurse informed resident that she would like to speak with social science research assistant regarding visitation consults, stated she will get in contact with Mavis on Friday, this nurse will inform next upcoming nurse of this conversation.
[2023-06-01] MEDS: INSULIN GLARGINE 100 UNIT/ML INSULN.PEN 14 UNIT SC (17:52)
[2023-06-01] MEDS: DOXAZOSIN 2 MG TABLET 4 MG GT (21:16)
--- NOTE | 2023-06-01 22:17 | ESPR_ITS ---
Progress Note - SubAcute SUBJECTIVE Fever:: none Shortness of Breath:: none GI:: no complaints Pain:: none OBJECTIVE Most recent vital signs: Last Vital Signs Temp 97.2 F 06/01/23 17:57 Pulse 80 06/01/23 17:57 Resp 26 H 06/01/23 17:57 BP 112/71 06/01/23 17:57 Pulse Ox 96 06/01/23 17:57 O2 Del Method Mechanical Ventilation 05/30/23 17:48 FiO2 25 06/01/23 12:02 Neurological:: awake Speech:: none Answers questions:: no Respiratory:: shallow breathing Cardiovascular: RRR Abdomen: soft and nontender Extremities:: deformities Decubitus:: improved Tracheostomy:: to ventilator Feeding per:: G tube Complaints:: none ASSESSMENT & PLAN Assessment: Pt. has certainly been awake and eye tracking some. Diagnosis and treatment reviewed. Ventilator settings reviewed and pt started was on weaning with Pressure support but after acute infection back on ventilator continuously till he settles down when we will again attempt weaning. Plan: Current treatment as ongoing
[2023-06-02] VITALS (7 sets, daily range): BP systolic 112–131; BP diastolic 71–80; PULSE 73–80; RESP 18–28; TEMP 36.4–36.7; O2SAT 98–99
[2023-06-02] MEDS: IPRATROPIUM/ALBUTEROL 3 ML AMPUL.NEB INH ×4 (01:00→19:20)
[2023-06-02] MEDS: AMLODIPINE 5 MG TABLET GT (08:43)
[2023-06-02] MEDS: FAMOTIDINE 20 MG TABLET GT ×2 (08:43→20:58)
[2023-06-02] MEDS: FLUCONAZOLE 200 MG TABLET GT (08:44)
[2023-06-02] MEDS: FUROSEMIDE 20 MG TABLET GT (08:45)
[2023-06-02] MEDS: SENNOSIDES 8.6 MG TABLET GT ×2 (08:45→20:58)
[2023-06-02] MEDS: INSULIN REGULAR, HUMAN 100 UNIT/ML VIAL SC (17:59)
[2023-06-02] MEDS: INSULIN GLARGINE 100 UNIT/ML INSULN.PEN 14 UNIT SC (18:01)
[2023-06-02] MEDS: DOXAZOSIN 2 MG TABLET 4 MG GT (20:57)
[2023-06-03] VITALS (9 sets, daily range): BP systolic 115–131; BP diastolic 72–78; PULSE 58–84; RESP 18–29; TEMP 36.2–36.8; O2SAT 98–100
[2023-06-03] MEDS: INSULIN REGULAR, HUMAN 100 UNIT/ML VIAL SC ×3 (00:03→12:14)
[2023-06-03] MEDS: IPRATROPIUM/ALBUTEROL 3 ML AMPUL.NEB INH ×4 (00:40→18:58)
[2023-06-03] MEDS: AMLODIPINE 5 MG TABLET GT (09:20)
[2023-06-03] MEDS: FAMOTIDINE 20 MG TABLET GT ×2 (09:21→20:12)
[2023-06-03] MEDS: FLUCONAZOLE 200 MG TABLET GT (09:21)
[2023-06-03] MEDS: FUROSEMIDE 20 MG TABLET GT (09:21)
[2023-06-03] MEDS: SENNOSIDES 8.6 MG TABLET GT ×2 (09:21→20:12)
[2023-06-03] MEDS: INSULIN GLARGINE 100 UNIT/ML INSULN.PEN 14 UNIT SC (18:13)
[2023-06-03] MEDS: DOXAZOSIN 2 MG TABLET 4 MG GT (20:12)
[2023-06-04] VITALS (10 sets, daily range): BP systolic 94–132; BP diastolic 66–82; PULSE 68–94; RESP 18–26; TEMP 36.1–36.5; O2SAT 97–100
[2023-06-04] MEDS: IPRATROPIUM/ALBUTEROL 3 ML AMPUL.NEB INH ×4 (00:15→19:10)
[2023-06-04] MEDS: INSULIN REGULAR, HUMAN 100 UNIT/ML VIAL SC ×2 (05:04→17:42)
[2023-06-04] MEDS: AMLODIPINE 5 MG TABLET GT (09:31)
[2023-06-04] MEDS: FAMOTIDINE 20 MG TABLET GT ×2 (09:32→20:06)
[2023-06-04] MEDS: FLUCONAZOLE 200 MG TABLET GT (09:33)
[2023-06-04] MEDS: FUROSEMIDE 20 MG TABLET GT (09:33)
[2023-06-04] MEDS: SENNOSIDES 8.6 MG TABLET GT ×2 (09:34→20:06)
--- NOTE | 2023-06-04 14:06 | PC.DIETICIAN ---
Dietitian note: During IDT, family agreed to decrease TF to prevent weight gain: Glucerna 1.2@ 70ml/hr x 22hrs provides; 1540ml total vol,1848kcal, 92g protein. Increase water flush to 400ml Q shift for adequate hydration. Thank you
--- NOTE | 2023-06-04 17:00 | PC.NURSE ---
cut his nails and accidentally cut left finger 4th digit.
--- NOTE | 2023-06-04 17:26 | PC.NURSE ---
. order to changed the feeding rate to 70ml/hr x 22 hrs. and increase water flush to 400ml every shift, MD. and RT checked the resident for the plan of weaning from the vent, and RT. said they will not wean him at this time.
[2023-06-04] MEDS: INSULIN GLARGINE 100 UNIT/ML INSULN.PEN 14 UNIT SC (17:42)
[2023-06-04] MEDS: DOXAZOSIN 2 MG TABLET 4 MG GT (20:06)
[2023-06-05] VITALS (9 sets, daily range): BP systolic 114–144; BP diastolic 61–78; PULSE 77–96; RESP 18–30; TEMP 36.3–37; O2SAT 96–100
[2023-06-05] MEDS: IPRATROPIUM/ALBUTEROL 3 ML AMPUL.NEB INH ×4 (00:35→19:15)
[2023-06-05] MEDS: INSULIN REGULAR, HUMAN 100 UNIT/ML VIAL SC ×3 (05:30→18:10)
[2023-06-05] MEDS: AMLODIPINE 5 MG TABLET GT (09:13)
[2023-06-05] MEDS: FUROSEMIDE 20 MG TABLET GT (09:14)
[2023-06-05] MEDS: SENNOSIDES 8.6 MG TABLET GT ×2 (09:14→20:13)
[2023-06-05] MEDS: FLUCONAZOLE 200 MG TABLET GT (09:14)
[2023-06-05] MEDS: FAMOTIDINE 20 MG TABLET GT ×2 (09:14→20:13)
--- NOTE | 2023-06-05 14:45 | ESPR_ITS ---
Progress Note - SubAcute SUBJECTIVE Fever:: none Shortness of Breath:: none GI:: no complaints Pain:: none OBJECTIVE Most recent vital signs: Last Vital Signs Temp 97.0 F 06/09/23 06:00 Pulse 73 06/09/23 06:00 Resp 20 06/09/23 06:00 BP 107/70 06/09/23 06:00 Pulse Ox 98 06/09/23 06:00 O2 Del Method Mechanical Ventilation 06/04/23 05:54 FiO2 25 06/09/23 01:10 Neurological:: awake Speech:: none Answers questions:: no Respiratory:: shallow breathing Cardiovascular: RRR Abdomen: soft and nontender Extremities:: deformities Decubitus:: improved Tracheostomy:: to ventilator Feeding per:: G tube Complaints:: none ASSESSMENT & PLAN Assessment: Pt. has certainly been awake and eye tracking some. Diagnosis and treatment reviewed. Ventilator settings reviewed and pt started was on weaning with Pressure support but after acute infection back on ventilator continuously till he settles down when we will again attempt weaning. Plan: Current treatment as ongoing. Weaning attempts continued. Family updated
[2023-06-05] MEDS: INSULIN GLARGINE 100 UNIT/ML INSULN.PEN 14 UNIT SC (18:10)
[2023-06-05] MEDS: DOXAZOSIN 2 MG TABLET 4 MG GT (20:13)
[2023-06-06] VITALS (9 sets, daily range): BP systolic 102–137; BP diastolic 65–81; PULSE 76–92; RESP 20–31; TEMP 36.1–36.9; O2SAT 97–100
[2023-06-06] MEDS: IPRATROPIUM/ALBUTEROL 3 ML AMPUL.NEB INH ×4 (01:50→19:20)
[2023-06-06] MEDS: INSULIN REGULAR, HUMAN 100 UNIT/ML VIAL SC ×3 (05:19→18:19)
[2023-06-06] MEDS: AMLODIPINE 5 MG TABLET GT (08:01)
[2023-06-06] MEDS: FAMOTIDINE 20 MG TABLET GT ×2 (08:01→20:45)
[2023-06-06] MEDS: FLUCONAZOLE 200 MG TABLET GT (08:02)
[2023-06-06] MEDS: SENNOSIDES 8.6 MG TABLET GT ×2 (08:02→20:45)
[2023-06-06] MEDS: FUROSEMIDE 20 MG TABLET GT (08:02)
--- NOTE | 2023-06-06 14:42 | PC.SS ---
Room visit: Resident is laying in bed with head of the bed elevated with call light properly placed. Resident has no changes in care or condition he will remain in current care and will have all needs met for subacute care. This SSD will make daily contact with resident and will monitor for any changes in care or condition.
[2023-06-06] MEDS: INSULIN GLARGINE 100 UNIT/ML INSULN.PEN 14 UNIT SC (18:19)
[2023-06-06] MEDS: DOXAZOSIN 2 MG TABLET 4 MG GT (20:45)
[2023-06-07] VITALS (10 sets, daily range): BP systolic 103–118; BP diastolic 62–73; PULSE 72–102; RESP 16–30; TEMP 35.9–37.3; O2SAT 97–100
[2023-06-07] MEDS: IPRATROPIUM/ALBUTEROL 3 ML AMPUL.NEB INH ×4 (00:40→19:14)
[2023-06-07] MEDS: INSULIN REGULAR, HUMAN 100 UNIT/ML VIAL SC ×3 (06:27→17:25)
[2023-06-07] MEDS: AMLODIPINE 5 MG TABLET GT (08:17)
[2023-06-07] MEDS: FUROSEMIDE 20 MG TABLET GT (08:18)
[2023-06-07] MEDS: SENNOSIDES 8.6 MG TABLET GT ×2 (08:18→21:41)
[2023-06-07] MEDS: FAMOTIDINE 20 MG TABLET GT ×2 (08:18→21:41)
[2023-06-07] MEDS: FLUCONAZOLE 200 MG TABLET GT (08:18)
--- NOTE | 2023-06-07 15:45 | PD.SAPROG ---
Progress Note - SubAcute SUBJECTIVE Fever:: none Shortness of Breath:: none GI:: no complaints Pain:: none OBJECTIVE Most recent vital signs: Last Vital Signs Temp 97.0 F 06/09/23 06:00 Pulse 73 06/09/23 06:00 Resp 20 06/09/23 06:00 BP 107/70 06/09/23 06:00 Pulse Ox 98 06/09/23 06:00 O2 Del Method Mechanical Ventilation 06/04/23 05:54 FiO2 25 06/09/23 01:10 Neurological:: awake Speech:: none Answers questions:: no Respiratory:: shallow breathing Cardiovascular: RRR Abdomen: soft and nontender Extremities:: deformities Decubitus:: improved Tracheostomy:: to ventilator Feeding per:: G tube Complaints:: none ASSESSMENT & PLAN Assessment: Pt. has certainly been awake and eye tracking some. Diagnosis and treatment reviewed. Ventilator settings reviewed and pt started was on weaning with Pressure support but after acute infection back on ventilator continuously till he settles down when we will again attempt weaning. Plan: Current treatment as ongoing. Weaning attempts continued. Family updated
[2023-06-07] MEDS: INSULIN GLARGINE 100 UNIT/ML INSULN.PEN 14 UNIT SC (17:25)
[2023-06-07] MEDS: DOXAZOSIN 2 MG TABLET 4 MG GT (21:39)
[2023-06-08] VITALS (9 sets, daily range): BP systolic 104–125; BP diastolic 62–74; PULSE 76–97; RESP 17–37; TEMP 36.1–36.6; O2SAT 98–99
[2023-06-08] MEDS: IPRATROPIUM/ALBUTEROL 3 ML AMPUL.NEB INH ×4 (00:50→16:10)
[2023-06-08] MEDS: AMLODIPINE 5 MG TABLET GT (09:09)
[2023-06-08] MEDS: FLUCONAZOLE 200 MG TABLET GT (09:10)
[2023-06-08] MEDS: FAMOTIDINE 20 MG TABLET GT ×2 (09:10→20:10)
[2023-06-08] MEDS: SENNOSIDES 8.6 MG TABLET GT ×2 (09:10→20:10)
[2023-06-08] MEDS: FUROSEMIDE 20 MG TABLET GT (09:10)
[2023-06-08] MEDS: INSULIN REGULAR, HUMAN 100 UNIT/ML VIAL SC ×2 (11:41→17:26)
[2023-06-08] MEDS: ACETAMINOPHEN 325 MG/10.15 ML 650 MG GT (11:48)
[2023-06-08] MEDS: INSULIN GLARGINE 100 UNIT/ML INSULN.PEN 14 UNIT SC (17:27)
[2023-06-08] MEDS: DOXAZOSIN 2 MG TABLET 4 MG GT (20:10)
[2023-06-09] VITALS (9 sets, daily range): BP systolic 107–141; BP diastolic 67–76; PULSE 67–88; RESP 14–34; TEMP 36.1–36.6; O2SAT 94–100
[2023-06-09] MEDS: IPRATROPIUM/ALBUTEROL 3 ML AMPUL.NEB INH ×4 (01:10→19:48)
[2023-06-09] MEDS: INSULIN REGULAR, HUMAN 100 UNIT/ML VIAL SC ×2 (05:24→12:30)
[2023-06-09] MEDS: AMLODIPINE 5 MG TABLET GT (08:46)
[2023-06-09] MEDS: FAMOTIDINE 20 MG TABLET GT ×2 (08:47→20:31)
[2023-06-09] MEDS: FLUCONAZOLE 200 MG TABLET GT (08:47)
[2023-06-09] MEDS: FUROSEMIDE 20 MG TABLET GT (08:48)
[2023-06-09] MEDS: SENNOSIDES 8.6 MG TABLET GT ×2 (08:48→20:31)
[2023-06-09] MEDS: INSULIN GLARGINE 100 UNIT/ML INSULN.PEN 14 UNIT SC (17:13)
[2023-06-10] VITALS (9 sets, daily range): BP systolic 112–120; BP diastolic 69–90; PULSE 81–101; RESP 16–33; TEMP 36.2–36.6; O2SAT 96–100
[2023-06-10] MEDS: INSULIN REGULAR, HUMAN 100 UNIT/ML VIAL SC ×3 (00:08→17:24)
[2023-06-10] MEDS: IPRATROPIUM/ALBUTEROL 3 ML AMPUL.NEB INH ×4 (00:44→19:49)
[2023-06-10] MEDS: ACETAMINOPHEN 325 MG/10.15 ML 650 MG GT (01:13)
[2023-06-10 07:03] LABS: Basophils # (Auto) 0.1 Thou/mm3 (0.0-0.2); Basophils % (Auto) 0 % (0-2.5); Eosinophils # (Auto) 0.1 Thou/mm3 (0.0-0.5); Eosinophils % (Auto) 1 % (0-10); Hematocrit 31.5 % (41.0-53.0); Immature Granulocytes % (Auto) 1 % (0-0); Immature Granulocytes Auto 0.07 Thou/mm3 (0.00-0.00); Lymphocytes # (Auto) 2.2 Thou/mm3 (1.0-4.8); Lymphocytes % (Auto) 15 % (10-50); Mean Corpuscular HGB Conc 31.7 g/dl (31.0-37.0); Mean Corpuscular Hemoglobin 27.6 pg (25.0-35.0); Mean Corpuscular Volume 87 fL (80-100); Monocytes # (Auto) 1.2 Thou/mm3 (0.0-0.8); Monocytes % (Auto) 9 % (0-12); Neutrophils # (Auto) 10.5 Thou/mm3 (1.8-7.7); Neutrophils % (Auto) 74 % (37-80); Nucleated Red Blood Cell % 0 /100 WBC (0); Platelet Count 410 Thou/mm3 (140-440); RDW Standard Deviation 47.5 fL (35.1-43.9); Red Blood Count 3.62 Miln/mm3 (4.50-5.90); White Blood Count 14.1 Thou/mm3 (3.8-10.6)
[2023-06-10 07:38] LABS: Alanine Aminotransferase 12 U/L (10-49); Albumin/Globulin Ratio 1.3 (1.2-2.2); Alkaline Phosphatase 89 U/L (46-116); Anion Gap 7 (7-16); Aspartate Amino Transferase 13 U/L (0-34); BUN/Creatinine Ratio 42 Ratio (12-20); Bilirubin,Total 0.4 mg/dL (0.3-1.2); Blood Urea Nitrogen 21 mg/dL (9-23); Calcium 9.8 mg/dL (8.3-10.6); Calcium (Corrected) 9.8 mg/dL (8.5-10.1); Carbon Dioxide 28.7 mMol/L (20.0-31.0); Chloride 101 mMol/L (98-107); Creatinine (Component) 0.5 mg/dL (0.6-1.3); Estimated Creatinine Clearance 153.1 mL/min (>60); Globulin 3.2 gm/dL (2.3-3.5); Glucose 159 mg/dL (74-106); Glucose,Fasting 159 mg/dL (74-106); Osmolality,Calculated 279 (275-295); Potassium 3.9 mMol/L (3.4-5.1); Sodium 137 mMol/L (136-145); Total Protein 7.2 gm/dL (5.7-8.2); eGFR > 60 See Note
[2023-06-10] MEDS: AMLODIPINE 5 MG TABLET GT (08:03)
[2023-06-10] MEDS: FLUCONAZOLE 200 MG TABLET GT (08:04)
[2023-06-10] MEDS: FUROSEMIDE 20 MG TABLET GT (08:04)
[2023-06-10] MEDS: SENNOSIDES 8.6 MG TABLET GT ×2 (08:04→20:23)
[2023-06-10] MEDS: FAMOTIDINE 20 MG TABLET GT ×2 (08:04→20:23)
--- NOTE | 2023-06-10 14:25 | PC.NURSE ---
Received CBC result, WBC was 14.1, . made aware no new order received.
[2023-06-10] MEDS: INSULIN GLARGINE 100 UNIT/ML INSULN.PEN 14 UNIT SC (17:24)
[2023-06-10] MEDS: DOXAZOSIN 2 MG TABLET 4 MG GT (20:22)
[2023-06-11] VITALS (8 sets, daily range): BP systolic 114–132; BP diastolic 67–74; PULSE 73–102; RESP 16–38; TEMP 36.4–37.1; O2SAT 96–98
[2023-06-11] MEDS: IPRATROPIUM/ALBUTEROL 3 ML AMPUL.NEB INH ×4 (00:45→19:10)
[2023-06-11] MEDS: INSULIN REGULAR, HUMAN 100 UNIT/ML VIAL SC ×3 (05:27→17:47)
[2023-06-11] MEDS: AMLODIPINE 5 MG TABLET GT (09:20)
[2023-06-11] MEDS: FUROSEMIDE 20 MG TABLET GT (09:21)
[2023-06-11] MEDS: SENNOSIDES 8.6 MG TABLET GT ×2 (09:21→20:05)
[2023-06-11] MEDS: FAMOTIDINE 20 MG TABLET GT ×2 (09:21→20:05)
[2023-06-11] MEDS: FLUCONAZOLE 200 MG TABLET GT (09:21)
[2023-06-11] MEDS: INSULIN GLARGINE 100 UNIT/ML INSULN.PEN 14 UNIT SC (17:46)
[2023-06-11] MEDS: DOXAZOSIN 2 MG TABLET 4 MG GT (20:05)
[2023-06-12] VITALS (9 sets, daily range): BP systolic 109–125; BP diastolic 73–80; PULSE 71–99; RESP 17–33; TEMP 36.1–36.8; O2SAT 97–99
[2023-06-12] MEDS: INSULIN REGULAR, HUMAN 100 UNIT/ML VIAL SC ×3 (00:46→17:23)
[2023-06-12] MEDS: IPRATROPIUM/ALBUTEROL 3 ML AMPUL.NEB INH ×4 (01:10→18:40)
[2023-06-12] MEDS: AMLODIPINE 5 MG TABLET GT (09:24)
[2023-06-12] MEDS: FAMOTIDINE 20 MG TABLET GT ×2 (09:24→20:21)
[2023-06-12] MEDS: SENNOSIDES 8.6 MG TABLET GT ×2 (09:25→20:21)
[2023-06-12] MEDS: FLUCONAZOLE 200 MG TABLET GT (09:25)
[2023-06-12] MEDS: FUROSEMIDE 20 MG TABLET GT (09:25)
--- NOTE | 2023-06-12 13:23 | CHAP ---
11:00 AM Visited by spiritual care volunteer Provided prayer for Patient.
--- NOTE | 2023-06-12 14:15 | ESPR_ITS ---
Progress Note - SubAcute SUBJECTIVE Fever:: none Shortness of Breath:: none GI:: no complaints Pain:: none OBJECTIVE Most recent vital signs: Last Vital Signs Temp 97.9 F 06/13/23 00:00 Pulse 82 06/13/23 00:10 Resp 30 H 06/13/23 00:10 BP 128/79 06/13/23 00:00 Pulse Ox 98 06/13/23 00:10 O2 Del Method Mechanical Ventilation 06/12/23 17:55 FiO2 25 06/13/23 00:10 Neurological:: awake Speech:: none Answers questions:: no Respiratory:: shallow breathing Cardiovascular: RRR Abdomen: soft and nontender Extremities:: deformities Decubitus:: improved Tracheostomy:: to ventilator Feeding per:: G tube Complaints:: none ASSESSMENT & PLAN Assessment: Pt. has certainly been awake and eye tracking some. Diagnosis and treatment reviewed. Ventilator settings reviewed and pt started was on weaning with Pressure support but after acute infection back on ventilator continuously till he settles down when we will again attempt weaning. Plan: Current treatment as ongoing. Weaning attempts continued. Family updated
[2023-06-12] MEDS: INSULIN GLARGINE 100 UNIT/ML INSULN.PEN 14 UNIT SC (17:22)
[2023-06-12] MEDS: DOXAZOSIN 2 MG TABLET 4 MG GT (20:21)
[2023-06-13] VITALS (11 sets, daily range): BP systolic 108–132; BP diastolic 65–79; PULSE 69–94; RESP 16–35; TEMP 36.2–36.6; O2SAT 94–99
[2023-06-13] MEDS: IPRATROPIUM/ALBUTEROL 3 ML AMPUL.NEB INH ×4 (00:10→18:19)
[2023-06-13] MEDS: SENNOSIDES 8.6 MG TABLET GT ×2 (09:22→20:21)
[2023-06-13] MEDS: FUROSEMIDE 20 MG TABLET GT (09:22)
[2023-06-13] MEDS: FLUCONAZOLE 200 MG TABLET GT (09:22)
[2023-06-13] MEDS: AMLODIPINE 5 MG TABLET GT (09:22)
[2023-06-13] MEDS: FAMOTIDINE 20 MG TABLET GT ×2 (09:22→20:21)
[2023-06-13] MEDS: INSULIN REGULAR, HUMAN 100 UNIT/ML VIAL SC ×2 (11:49→23:50)
[2023-06-13] MEDS: INSULIN GLARGINE 100 UNIT/ML INSULN.PEN 14 UNIT SC (17:18)
[2023-06-13] MEDS: DOXAZOSIN 2 MG TABLET 4 MG GT (21:13)
[2023-06-14] VITALS (12 sets, daily range): BP systolic 108–142; BP diastolic 70–78; PULSE 76–90; RESP 16–37; TEMP 36.1–36.8; O2SAT 97–99
[2023-06-14] MEDS: ACETAMINOPHEN 325 MG TABLET 650 MG GT ×2 (00:09→19:45)
[2023-06-14] MEDS: IPRATROPIUM/ALBUTEROL 3 ML AMPUL.NEB INH ×4 (00:12→20:01)
[2023-06-14] MEDS: INSULIN REGULAR, HUMAN 100 UNIT/ML VIAL SC ×3 (05:47→17:08)
[2023-06-14] MEDS: AMLODIPINE 5 MG TABLET GT (08:29)
[2023-06-14] MEDS: FAMOTIDINE 20 MG TABLET GT ×2 (08:30→20:42)
[2023-06-14] MEDS: FLUCONAZOLE 200 MG TABLET GT (08:31)
[2023-06-14] MEDS: SENNOSIDES 8.6 MG TABLET GT ×2 (08:32→20:42)
[2023-06-14] MEDS: FUROSEMIDE 20 MG TABLET GT (08:32)
[2023-06-14] MEDS: INSULIN GLARGINE 100 UNIT/ML INSULN.PEN 14 UNIT SC (17:07)
--- NOTE | 2023-06-14 17:58 | PC.NURSE ---
Resident continues on Diflucan antibiotics for fungal infection to bilateral finger nails and toe nails, nails remain yellow looking and thick. No adverse reactions or side effects to note. Adequate fluid intake, Call light in place with bed in low position. Plan of care ongoing.
[2023-06-14] MEDS: DOXAZOSIN 2 MG TABLET 4 MG GT (20:41)
[2023-06-15] VITALS (11 sets, daily range): BP systolic 120–137; BP diastolic 69–88; PULSE 71–120; RESP 16–36; TEMP 36.1–36.9; O2SAT 97–100
[2023-06-15] MEDS: IPRATROPIUM/ALBUTEROL 3 ML AMPUL.NEB INH ×4 (07:30→20:36)
[2023-06-15] MEDS: AMLODIPINE 5 MG TABLET GT (08:43)
[2023-06-15] MEDS: FLUCONAZOLE 200 MG TABLET GT (08:44)
[2023-06-15] MEDS: FAMOTIDINE 20 MG TABLET GT ×2 (08:44→21:28)
[2023-06-15] MEDS: SENNOSIDES 8.6 MG TABLET GT ×2 (08:45→21:28)
[2023-06-15] MEDS: FUROSEMIDE 20 MG TABLET GT (08:45)
[2023-06-15] MEDS: INSULIN REGULAR, HUMAN 100 UNIT/ML VIAL SC (12:10)
[2023-06-15] MEDS: INSULIN GLARGINE 100 UNIT/ML INSULN.PEN 14 UNIT SC (17:10)
[2023-06-15] MEDS: DOXAZOSIN 2 MG TABLET 4 MG GT (21:28)
[2023-06-16] VITALS (9 sets, daily range): BP systolic 107–126; BP diastolic 62–83; PULSE 65–89; RESP 15–31; TEMP 36–36.6; O2SAT 96–100
[2023-06-16] MEDS: INSULIN REGULAR, HUMAN 100 UNIT/ML VIAL SC ×3 (00:23→17:12)
[2023-06-16] MEDS: IPRATROPIUM/ALBUTEROL 3 ML AMPUL.NEB INH ×4 (00:30→19:15)
[2023-06-16] MEDS: FAMOTIDINE 20 MG TABLET GT ×2 (08:58→20:15)
[2023-06-16] MEDS: AMLODIPINE 5 MG TABLET GT (08:58)
[2023-06-16] MEDS: FUROSEMIDE 20 MG TABLET GT (08:59)
[2023-06-16] MEDS: FLUCONAZOLE 200 MG TABLET GT (08:59)
[2023-06-16] MEDS: SENNOSIDES 8.6 MG TABLET GT ×2 (09:00→20:15)
--- NOTE | 2023-06-16 11:43 | ESPR_ITS ---
Progress Note - SubAcute SUBJECTIVE Fever:: none Shortness of Breath:: none GI:: no complaints Pain:: none OBJECTIVE Most recent vital signs: Last Vital Signs Temp 97 F 06/16/23 05:53 Pulse 82 06/16/23 08:58 Resp 15 06/16/23 07:30 BP 111/62 06/16/23 08:58 Pulse Ox 100 06/16/23 07:30 O2 Del Method Mechanical Ventilation 06/16/23 05:53 FiO2 25 06/16/23 07:30 Neurological:: awake Speech:: none Answers questions:: no Respiratory:: shallow breathing Cardiovascular: RRR Abdomen: soft and nontender Extremities:: deformities Decubitus:: improved Tracheostomy:: to ventilator Feeding per:: G tube Complaints:: none ASSESSMENT & PLAN Assessment: Pt. has certainly been awake and eye tracking some. Diagnosis and treatment reviewed. Ventilator settings reviewed and pt started was on weaning with Pressure support but after acute infection back on ventilator continuously till he settles down when we will again attempt weaning. Plan: Current treatment as ongoing. Weaning attempts continued. Family updated
[2023-06-16] MEDS: INSULIN GLARGINE 100 UNIT/ML INSULN.PEN 14 UNIT SC (17:12)
[2023-06-16] MEDS: DOXAZOSIN 2 MG TABLET 4 MG GT (20:14)
[2023-06-17] VITALS (9 sets, daily range): BP systolic 116–143; BP diastolic 72–87; PULSE 72–85; RESP 22–35; TEMP 36.2–36.6; O2SAT 94–100
[2023-06-17] MEDS: IPRATROPIUM/ALBUTEROL 3 ML AMPUL.NEB INH ×4 (01:25→19:20)
[2023-06-17] MEDS: INSULIN REGULAR, HUMAN 100 UNIT/ML VIAL SC ×2 (05:26→17:55)
[2023-06-17] MEDS: AMLODIPINE 5 MG TABLET GT (09:30)
[2023-06-17] MEDS: FAMOTIDINE 20 MG TABLET GT ×2 (09:31→20:18)
[2023-06-17] MEDS: FLUCONAZOLE 200 MG TABLET GT (09:32)
[2023-06-17] MEDS: SENNOSIDES 8.6 MG TABLET GT ×2 (09:33→20:19)
[2023-06-17] MEDS: FUROSEMIDE 20 MG TABLET GT (09:33)
--- NOTE | 2023-06-17 12:47 | PC.NURSE ---
At about 1130 resident noted to have a moderate emesis that looked like formula. Resident was cleaned up and typewriter operator automatic checked gastric residual. Gastric residual noted to be 320. Gastric residual was returned to resident and tubefeeding was held for one hour. At 1230 typewriter operator automatic checked residual again and residual was at 280. Continued to hold feeding and RN made aware. No further emesis noted. Resident is resting with eyes closed. BS was checked prior to holding tubefeeding and BS was 147. Call light in reach. Will continue current plan of care.
[2023-06-17] MEDS: INSULIN GLARGINE 100 UNIT/ML INSULN.PEN 14 UNIT SC (17:54)
[2023-06-17] MEDS: DOXAZOSIN 2 MG TABLET 4 MG GT (20:18)
[2023-06-18] VITALS (10 sets, daily range): BP systolic 110–133; BP diastolic 70–83; PULSE 75–86; RESP 27–36; TEMP 36.4–36.7; O2SAT 97–100
[2023-06-18] MEDS: IPRATROPIUM/ALBUTEROL 3 ML AMPUL.NEB INH ×4 (00:40→19:17)
[2023-06-18] MEDS: INSULIN REGULAR, HUMAN 100 UNIT/ML VIAL SC ×2 (05:31→11:45)
[2023-06-18] MEDS: AMLODIPINE 5 MG TABLET GT (08:47)
[2023-06-18] MEDS: FAMOTIDINE 20 MG TABLET GT ×2 (08:48→20:13)
[2023-06-18] MEDS: FLUCONAZOLE 200 MG TABLET GT (08:48)
[2023-06-18] MEDS: SENNOSIDES 8.6 MG TABLET GT ×2 (08:48→20:13)
[2023-06-18] MEDS: FUROSEMIDE 20 MG TABLET GT (08:48)
[2023-06-18] MEDS: INSULIN GLARGINE 100 UNIT/ML INSULN.PEN 14 UNIT SC (18:03)
[2023-06-18] MEDS: DOXAZOSIN 2 MG TABLET 4 MG GT (20:12)
[2023-06-19] VITALS (8 sets, daily range): BP systolic 98–132; BP diastolic 63–83; PULSE 75–90; RESP 23–34; TEMP 36.2–36.4; O2SAT 97–100
[2023-06-19] MEDS: IPRATROPIUM/ALBUTEROL 3 ML AMPUL.NEB INH ×4 (01:10→19:15)
[2023-06-19] MEDS: INSULIN REGULAR, HUMAN 100 UNIT/ML VIAL SC ×2 (05:37→11:43)
[2023-06-19] MEDS: AMLODIPINE 5 MG TABLET GT (09:09)
[2023-06-19] MEDS: FAMOTIDINE 20 MG TABLET GT ×2 (09:09→20:15)
[2023-06-19] MEDS: SENNOSIDES 8.6 MG TABLET GT ×2 (09:12→20:15)
[2023-06-19] MEDS: FUROSEMIDE 20 MG TABLET GT (09:12)
[2023-06-19] MEDS: FLUCONAZOLE 200 MG TABLET GT (09:12)
--- NOTE | 2023-06-19 13:08 | CHAP ---
11:00 AM Visited by spiritual care volunteer Provided prayer for Patient.
[2023-06-19] MEDS: INSULIN GLARGINE 100 UNIT/ML INSULN.PEN 14 UNIT SC (17:23)
[2023-06-19] MEDS: DOXAZOSIN 2 MG TABLET 4 MG GT (20:15)
[2023-06-20] VITALS (9 sets, daily range): BP systolic 106–131; BP diastolic 68–82; PULSE 70–85; RESP 16–33; TEMP 36.2–36.6; O2SAT 97–100
[2023-06-20] MEDS: IPRATROPIUM/ALBUTEROL 3 ML AMPUL.NEB INH ×3 (00:40→12:34)
[2023-06-20] MEDS: INSULIN REGULAR, HUMAN 100 UNIT/ML VIAL SC ×2 (05:30→11:45)
[2023-06-20] MEDS: FAMOTIDINE 20 MG TABLET GT ×2 (08:04→20:33)
[2023-06-20] MEDS: FUROSEMIDE 20 MG TABLET GT (08:04)
[2023-06-20] MEDS: SENNOSIDES 8.6 MG TABLET GT ×2 (08:04→20:34)
[2023-06-20] MEDS: FLUCONAZOLE 200 MG TABLET GT (08:04)
[2023-06-20] MEDS: AMLODIPINE 5 MG TABLET GT (08:04)
--- NOTE | 2023-06-20 11:25 | CHAP ---
Patient was visited by the Spiritual Care Volunteer who prayed for them. (Volunteer was in the hospital from 9:40-11:25).
--- NOTE | 2023-06-20 13:35 | ESPR_ITS ---
Progress Note - SubAcute SUBJECTIVE Fever:: none Shortness of Breath:: none GI:: no complaints Pain:: none OBJECTIVE Most recent vital signs: Last Vital Signs Temp 97.0 F 06/24/23 05:49 Pulse 76 06/24/23 05:49 Resp 24 H 06/24/23 05:49 BP 119/77 06/24/23 05:49 Pulse Ox 99 06/24/23 05:49 O2 Del Method Mechanical Ventilation 06/22/23 17:44 FiO2 25 06/24/23 00:32 Neurological:: awake Speech:: none Answers questions:: no Respiratory:: shallow breathing Cardiovascular: RRR Abdomen: soft and nontender Extremities:: deformities Decubitus:: improved Tracheostomy:: to ventilator Feeding per:: G tube Complaints:: none ASSESSMENT & PLAN Assessment: Pt. has certainly been awake and eye tracking some. Diagnosis and treatment reviewed. Ventilator settings reviewed and pt started was on weaning with Pressure support but after acute infection back on ventilator continuously till he settles down when we will again attempt weaning. Plan: Current treatment as ongoing. Weaning attempts continued. Family updated
--- NOTE | 2023-06-20 14:46 | PC.SS ---
Room Visit: Resident remains on ventilator with GT in place for nutrition and medication. He is laying in bed with head of the bed elevated with call light properly placed. Resident is well groomed, in good spirits showing no changes in mood or behavior. Resident will remain in current care as he is total care unable to makes needs known. Resident will remain in current care and will have all needs met for subacute care.
[2023-06-20] MEDS: INSULIN GLARGINE 100 UNIT/ML INSULN.PEN 14 UNIT SC (17:22)
[2023-06-20] MEDS: DOXAZOSIN 2 MG TABLET 4 MG GT (20:33)
[2023-06-21] VITALS (9 sets, daily range): BP systolic 110–121; BP diastolic 61–75; PULSE 70–86; RESP 17–79; TEMP 36.2–36.6; O2SAT 26–100
[2023-06-21] MEDS: INSULIN REGULAR, HUMAN 100 UNIT/ML VIAL SC ×2 (05:39→11:51)
[2023-06-21] MEDS: IPRATROPIUM/ALBUTEROL 3 ML AMPUL.NEB INH ×3 (06:56→16:35)
[2023-06-21] MEDS: AMLODIPINE 5 MG TABLET GT (08:36)
[2023-06-21] MEDS: FUROSEMIDE 20 MG TABLET GT (08:37)
[2023-06-21] MEDS: FAMOTIDINE 20 MG TABLET GT ×2 (08:37→21:17)
[2023-06-21] MEDS: FLUCONAZOLE 200 MG TABLET GT (08:37)
[2023-06-21] MEDS: SENNOSIDES 8.6 MG TABLET GT ×2 (08:37→21:17)
--- NOTE | 2023-06-21 10:39 | PC.RT ---
Trach changed @ 1038. Nurse Aware.
[2023-06-21] MEDS: INSULIN GLARGINE 100 UNIT/ML INSULN.PEN 14 UNIT SC (17:36)
[2023-06-21] MEDS: DOXAZOSIN 2 MG TABLET 4 MG GT (21:17)
[2023-06-22] VITALS (9 sets, daily range): BP systolic 99–160; BP diastolic 62–91; PULSE 70–85; RESP 16–28; TEMP 36.4–36.7; O2SAT 95–100
[2023-06-22] MEDS: IPRATROPIUM/ALBUTEROL 3 ML AMPUL.NEB INH ×3 (06:06→18:35)
[2023-06-22] MEDS: FAMOTIDINE 20 MG TABLET GT ×2 (09:03→20:10)
[2023-06-22] MEDS: AMLODIPINE 5 MG TABLET GT (09:03)
[2023-06-22] MEDS: FLUCONAZOLE 200 MG TABLET GT (09:04)
[2023-06-22] MEDS: SENNOSIDES 8.6 MG TABLET GT ×2 (09:04→20:10)
[2023-06-22] MEDS: FUROSEMIDE 20 MG TABLET GT (09:04)
[2023-06-22] MEDS: INSULIN REGULAR, HUMAN 100 UNIT/ML VIAL SC (12:40)
[2023-06-22] MEDS: INSULIN GLARGINE 100 UNIT/ML INSULN.PEN 14 UNIT SC (17:13)
[2023-06-22] MEDS: DOXAZOSIN 2 MG TABLET 4 MG GT (20:10)
[2023-06-23] VITALS (9 sets, daily range): BP systolic 103–168; BP diastolic 64–87; PULSE 67–88; RESP 16–28; TEMP 36.2–36.9; O2SAT 96–100
[2023-06-23] MEDS: IPRATROPIUM/ALBUTEROL 3 ML AMPUL.NEB INH ×4 (01:10→16:37)
[2023-06-23] MEDS: INSULIN REGULAR, HUMAN 100 UNIT/ML VIAL SC ×2 (05:33→12:10)
[2023-06-23 08:12] LABS: Alanine Aminotransferase 11 U/L (10-49); Albumin, Serum 4.2 gm/dL (3.4-4.8); Alkaline Phosphatase 90 U/L (46-116); Aspartate Amino Transferase 13 U/L (0-34); Bilirubin,Direct 0.1 mg/dL (0.0-0.3); Bilirubin,Total 0.3 mg/dL (0.3-1.2); Glucose,Fasting 144 mg/dL (74-106); Total Protein 7.7 gm/dL (5.7-8.2)
[2023-06-23] MEDS: FLUCONAZOLE 200 MG TABLET GT (08:50)
[2023-06-23] MEDS: FAMOTIDINE 20 MG TABLET GT ×2 (08:50→20:14)
[2023-06-23] MEDS: AMLODIPINE 5 MG TABLET GT (08:50)
[2023-06-23] MEDS: SENNOSIDES 8.6 MG TABLET GT ×2 (08:51→20:14)
[2023-06-23] MEDS: FUROSEMIDE 20 MG TABLET GT (08:51)
[2023-06-23] MEDS: INSULIN GLARGINE 100 UNIT/ML INSULN.PEN 14 UNIT SC (17:44)
[2023-06-23] MEDS: DOXAZOSIN 2 MG TABLET 4 MG GT (20:14)
[2023-06-24] VITALS (11 sets, daily range): BP systolic 100–133; BP diastolic 63–80; PULSE 71–84; RESP 16–31; TEMP 36.1–36.5; O2SAT 96–100
[2023-06-24] MEDS: IPRATROPIUM/ALBUTEROL 3 ML AMPUL.NEB INH ×4 (00:31→19:25)
--- NOTE | 2023-06-24 07:30 | PD.SAPROG ---
Progress Note - SubAcute SUBJECTIVE Fever:: none Shortness of Breath:: none GI:: no complaints Pain:: none OBJECTIVE Most recent vital signs: Last Vital Signs Temp 97.0 F 06/24/23 05:49 Pulse 76 06/24/23 05:49 Resp 24 H 06/24/23 05:49 BP 119/77 06/24/23 05:49 Pulse Ox 99 06/24/23 05:49 O2 Del Method Mechanical Ventilation 06/22/23 17:44 FiO2 25 06/24/23 00:32 Neurological:: awake Speech:: none Answers questions:: no Respiratory:: shallow breathing Cardiovascular: RRR Abdomen: soft and nontender Extremities:: deformities Decubitus:: improved Tracheostomy:: to ventilator Feeding per:: G tube Complaints:: none ASSESSMENT & PLAN Assessment: Pt. has certainly been awake and eye tracking some. Diagnosis and treatment reviewed. Ventilator settings reviewed and pt started was on weaning with Pressure support but after acute infection back on ventilator continuously till he settles down when we will again attempt weaning. Plan: Current treatment as ongoing. Weaning attempts continued. Family updated
[2023-06-24] MEDS: AMLODIPINE 5 MG TABLET GT (09:07)
[2023-06-24] MEDS: FAMOTIDINE 20 MG TABLET GT ×2 (09:08→20:35)
[2023-06-24] MEDS: FLUCONAZOLE 200 MG TABLET GT (09:09)
[2023-06-24] MEDS: FUROSEMIDE 20 MG TABLET GT (09:09)
[2023-06-24] MEDS: SENNOSIDES 8.6 MG TABLET GT ×2 (09:09→20:36)
[2023-06-24] MEDS: ACETAMINOPHEN 325 MG TABLET 650 MG GT (10:06)
--- NOTE | 2023-06-24 11:50 | PC.SS ---
Resident seen by card table attendant/Dr. Garces for routine toe nail care, no new orders or recommendations at this time. Resident will continue current care.
[2023-06-24] MEDS: INSULIN GLARGINE 100 UNIT/ML INSULN.PEN 14 UNIT SC (17:18)
[2023-06-24] MEDS: DOXAZOSIN 2 MG TABLET 4 MG GT (20:35)
[2023-06-25] VITALS (10 sets, daily range): BP systolic 110–122; BP diastolic 68–77; PULSE 72–85; RESP 16–32; TEMP 36.3–36.8; O2SAT 95–99
[2023-06-25] MEDS: IPRATROPIUM/ALBUTEROL 3 ML AMPUL.NEB INH ×4 (00:28→19:00)
[2023-06-25] MEDS: AMLODIPINE 5 MG TABLET GT (08:38)
[2023-06-25] MEDS: FLUCONAZOLE 200 MG TABLET GT (08:38)
[2023-06-25] MEDS: FAMOTIDINE 20 MG TABLET GT ×2 (08:38→20:47)
[2023-06-25] MEDS: SENNOSIDES 8.6 MG TABLET GT ×2 (08:40→20:47)
[2023-06-25] MEDS: FUROSEMIDE 20 MG TABLET GT (08:40)
[2023-06-25] MEDS: INSULIN GLARGINE 100 UNIT/ML INSULN.PEN 14 UNIT SC (17:36)
[2023-06-25] MEDS: INSULIN REGULAR, HUMAN 100 UNIT/ML VIAL SC (17:36)
[2023-06-25] MEDS: DOXAZOSIN 2 MG TABLET 4 MG GT (20:46)
[2023-06-25] MEDS: ACETAMINOPHEN 325 MG TABLET 650 MG GT (20:50)
[2023-06-26] VITALS (10 sets, daily range): BP systolic 108–150; BP diastolic 70–96; PULSE 73–96; RESP 16–30; TEMP 36.3–36.8; O2SAT 95–99
[2023-06-26] MEDS: IPRATROPIUM/ALBUTEROL 3 ML AMPUL.NEB INH ×4 (01:20→18:19)
[2023-06-26] MEDS: FAMOTIDINE 20 MG TABLET GT ×2 (08:45→20:57)
[2023-06-26] MEDS: FLUCONAZOLE 200 MG TABLET GT (08:45)
[2023-06-26] MEDS: AMLODIPINE 5 MG TABLET GT (08:45)
[2023-06-26] MEDS: FUROSEMIDE 20 MG TABLET GT (08:46)
[2023-06-26] MEDS: SENNOSIDES 8.6 MG TABLET GT ×2 (08:46→20:57)
--- NOTE | 2023-06-26 12:55 | CHAP ---
11:00 AM Visited by spiritual care volunteer Provided prayer for Patient.
[2023-06-26] MEDS: INSULIN GLARGINE 100 UNIT/ML INSULN.PEN 14 UNIT SC (17:36)
[2023-06-26] MEDS: DOXAZOSIN 2 MG TABLET 4 MG GT (20:57)
[2023-06-27] VITALS (9 sets, daily range): BP systolic 103–129; BP diastolic 67–81; PULSE 70–89; RESP 14–30; TEMP 36.2–36.3; O2SAT 96–100
[2023-06-27] MEDS: IPRATROPIUM/ALBUTEROL 3 ML AMPUL.NEB INH ×4 (00:59→19:40)
[2023-06-27] MEDS: AMLODIPINE 5 MG TABLET GT (09:00)
[2023-06-27] MEDS: FAMOTIDINE 20 MG TABLET GT ×2 (09:00→20:54)
[2023-06-27] MEDS: FUROSEMIDE 20 MG TABLET GT (09:01)
[2023-06-27] MEDS: SENNOSIDES 8.6 MG TABLET GT ×2 (09:01→20:54)
[2023-06-27] MEDS: FLUCONAZOLE 200 MG TABLET GT (09:01)
--- NOTE | 2023-06-27 10:54 | CHAP ---
Patient received communion from the Spiritual Care Volunteer. (Volunteer was in the hospital from 09:38-12:50).
--- NOTE | 2023-06-27 15:12 | PC.SS ---
Room visit: Resident is laying in bed with head of the bed elevated, resident is well groomed with call light properly placed with no signs of distress. Resident currently does not have any care or condition, resident will remain in current care. SSD to continue to make daily contact with resident and monitor mood and behavior for any changes.
[2023-06-27] MEDS: INSULIN REGULAR, HUMAN 100 UNIT/ML VIAL SC (17:05)
[2023-06-27] MEDS: INSULIN GLARGINE 100 UNIT/ML INSULN.PEN 14 UNIT SC (17:05)
[2023-06-27] MEDS: DOXAZOSIN 2 MG TABLET 4 MG GT (20:53)
[2023-06-28] VITALS (9 sets, daily range): BP systolic 106–145; BP diastolic 68–85; PULSE 65–89; RESP 18–27; TEMP 35.8–36.6; O2SAT 96–100
[2023-06-28] MEDS: IPRATROPIUM/ALBUTEROL 3 ML AMPUL.NEB INH ×4 (01:00→18:23)
[2023-06-28] MEDS: CARBAMIDE PEROXIDE OTIC SOL 15 ML BTL 5 DROP BOTH EARS (08:56)
[2023-06-28] MEDS: FLUCONAZOLE 200 MG TABLET GT (08:58)
[2023-06-28] MEDS: SENNOSIDES 8.6 MG TABLET GT ×2 (08:58→21:24)
[2023-06-28] MEDS: FUROSEMIDE 20 MG TABLET GT (08:58)
[2023-06-28] MEDS: FAMOTIDINE 20 MG TABLET GT ×2 (08:58→21:24)
[2023-06-28] MEDS: INSULIN GLARGINE 100 UNIT/ML INSULN.PEN 14 UNIT SC (17:42)
[2023-06-28] MEDS: DOXAZOSIN 2 MG TABLET 4 MG GT (21:24)
--- NOTE | 2023-06-28 23:39 | ESPR_ITS ---
Progress Note - SubAcute SUBJECTIVE Fever:: none Shortness of Breath:: none GI:: no complaints Pain:: none OBJECTIVE Most recent vital signs: Last Vital Signs Temp 97.7 F 06/28/23 17:32 Pulse 73 06/28/23 18:24 Resp 18 06/28/23 18:24 BP 110/70 06/28/23 17:32 Pulse Ox 100 06/28/23 18:24 O2 Del Method Mechanical Ventilation 06/27/23 05:43 FiO2 25 06/28/23 18:24 Neurological:: awake Speech:: none Answers questions:: no Respiratory:: shallow breathing Cardiovascular: RRR Abdomen: soft and nontender Extremities:: deformities Decubitus:: improved Tracheostomy:: to ventilator Feeding per:: G tube Complaints:: none ASSESSMENT & PLAN Assessment: Pt. has certainly been awake and eye tracking some. Diagnosis and treatment reviewed. Ventilator settings reviewed and pt started was on weaning with Pressure support but after acute infection back on ventilator continuously till he settles down when we will again attempt weaning. Plan: Current treatment as ongoing. Weaning attempts continued. Family updated
[2023-06-29] VITALS (9 sets, daily range): BP systolic 120–133; BP diastolic 68–83; PULSE 62–84; RESP 17–26; TEMP 36.1–36.6; O2SAT 98–100
[2023-06-29] MEDS: IPRATROPIUM/ALBUTEROL 3 ML AMPUL.NEB INH ×4 (00:16→18:33)
[2023-06-29] MEDS: AMLODIPINE 5 MG TABLET GT (08:31)
[2023-06-29] MEDS: CARBAMIDE PEROXIDE OTIC SOL 15 ML BTL 5 DROP BOTH EARS (08:31)
[2023-06-29] MEDS: FAMOTIDINE 20 MG TABLET GT ×2 (08:32→20:08)
[2023-06-29] MEDS: FUROSEMIDE 20 MG TABLET GT (08:32)
[2023-06-29] MEDS: FLUCONAZOLE 200 MG TABLET GT (08:32)
[2023-06-29] MEDS: SENNOSIDES 8.6 MG TABLET GT ×2 (08:33→20:08)
[2023-06-29] MEDS: INSULIN GLARGINE 100 UNIT/ML INSULN.PEN 14 UNIT SC (17:37)
[2023-06-29] MEDS: DOXAZOSIN 2 MG TABLET 4 MG GT (20:07)
[2023-06-30] VITALS (10 sets, daily range): BP systolic 108–127; BP diastolic 66–78; PULSE 66–81; RESP 14–27; TEMP 36.1–36.8; O2SAT 97–100
[2023-06-30] MEDS: IPRATROPIUM/ALBUTEROL 3 ML AMPUL.NEB INH ×4 (00:29→19:05)
[2023-06-30] MEDS: INSULIN REGULAR, HUMAN 100 UNIT/ML VIAL SC (05:41)
[2023-06-30] MEDS: AMLODIPINE 5 MG TABLET GT (09:45)
[2023-06-30] MEDS: FAMOTIDINE 20 MG TABLET GT ×2 (09:45→20:32)
[2023-06-30] MEDS: SENNOSIDES 8.6 MG TABLET GT ×2 (09:46→20:36)
[2023-06-30] MEDS: FUROSEMIDE 20 MG TABLET GT (09:46)
[2023-06-30] MEDS: FLUCONAZOLE 200 MG TABLET GT (09:46)
[2023-06-30] MEDS: CARBAMIDE PEROXIDE OTIC SOL 15 ML BTL 5 DROP BOTH EARS (10:55)
[2023-06-30] MEDS: INSULIN GLARGINE 100 UNIT/ML INSULN.PEN 14 UNIT SC (17:55)
[2023-07-01] VITALS (9 sets, daily range): BP systolic 123–145; BP diastolic 72–87; PULSE 19–78; RESP 12–74; TEMP 36–36.2; O2SAT 97–100
[2023-07-01] MEDS: IPRATROPIUM/ALBUTEROL 3 ML AMPUL.NEB INH ×4 (01:06→19:26)
[2023-07-01] MEDS: AMLODIPINE 5 MG TABLET GT (09:08)
[2023-07-01] MEDS: FAMOTIDINE 20 MG TABLET GT ×2 (09:09→20:24)
[2023-07-01] MEDS: FLUCONAZOLE 200 MG TABLET GT (09:09)
[2023-07-01] MEDS: FUROSEMIDE 20 MG TABLET GT (09:10)
[2023-07-01] MEDS: SENNOSIDES 8.6 MG TABLET GT ×2 (09:10→20:24)
[2023-07-01] MEDS: INSULIN REGULAR, HUMAN 100 UNIT/ML VIAL SC (12:22)
[2023-07-01] MEDS: INSULIN GLARGINE 100 UNIT/ML INSULN.PEN 14 UNIT SC (17:09)
[2023-07-01] MEDS: CARBAMIDE PEROXIDE OTIC SOL 15 ML BTL 5 DROP BOTH EARS (20:23)
[2023-07-01] MEDS: DOXAZOSIN 2 MG TABLET 4 MG GT (20:24)
[2023-07-02] VITALS (10 sets, daily range): BP systolic 112–154; BP diastolic 66–94; PULSE 65–82; RESP 18–28; TEMP 36.1–36.3; O2SAT 97–100
[2023-07-02] MEDS: IPRATROPIUM/ALBUTEROL 3 ML AMPUL.NEB INH ×4 (00:33→16:45)
[2023-07-02] MEDS: INSULIN REGULAR, HUMAN 100 UNIT/ML VIAL SC ×2 (05:20→12:00)
[2023-07-02] MEDS: FLUCONAZOLE 200 MG TABLET GT (08:50)
[2023-07-02] MEDS: AMLODIPINE 5 MG TABLET GT (08:50)
[2023-07-02] MEDS: FAMOTIDINE 20 MG TABLET GT ×2 (08:50→21:20)
[2023-07-02] MEDS: SENNOSIDES 8.6 MG TABLET GT ×2 (08:51→21:15)
[2023-07-02] MEDS: FUROSEMIDE 20 MG TABLET GT (08:51)
[2023-07-02] MEDS: INSULIN GLARGINE 100 UNIT/ML INSULN.PEN 14 UNIT SC (18:00)
--- NOTE | 2023-07-02 20:46 | ESPR_ITS ---
Progress Note - SubAcute SUBJECTIVE Fever:: none Shortness of Breath:: none GI:: no complaints Pain:: none OBJECTIVE Most recent vital signs: Last Vital Signs Temp 97.2 F 07/02/23 06:00 Pulse 69 07/02/23 08:50 Resp 19 07/02/23 06:47 BP 144/79 H 07/02/23 08:50 Pulse Ox 99 07/02/23 06:47 O2 Del Method Mechanical Ventilation 06/29/23 06:00 FiO2 25 07/02/23 06:47 Neurological:: awake Speech:: none Answers questions:: no Respiratory:: shallow breathing Cardiovascular: RRR Abdomen: soft and nontender Extremities:: deformities Decubitus:: improved Tracheostomy:: to ventilator Feeding per:: G tube Complaints:: none ASSESSMENT & PLAN Assessment: Pt. has certainly been awake and eye tracking some. Diagnosis and treatment reviewed. Ventilator settings reviewed and pt started was on weaning with Pressure support but after acute infection back on ventilator continuously till he settles down when we will again attempt weaning. Plan: Current treatment as ongoing. Weaning attempts continued. Family updated
[2023-07-02] MEDS: DOXAZOSIN 2 MG TABLET 4 MG GT (21:10)
[2023-07-02] MEDS: ACETAMINOPHEN 325 MG TABLET 650 MG GT (21:30)
[2023-07-03] VITALS (11 sets, daily range): BP systolic 98–132; BP diastolic 61–82; PULSE 65–88; RESP 18–25; TEMP 36.1–36.6; O2SAT 97–100
[2023-07-03] MEDS: IPRATROPIUM/ALBUTEROL 3 ML AMPUL.NEB INH ×4 (00:53→18:37)
[2023-07-03] MEDS: AMLODIPINE 5 MG TABLET GT (09:22)
[2023-07-03] MEDS: FAMOTIDINE 20 MG TABLET GT ×2 (09:22→21:24)
[2023-07-03] MEDS: SENNOSIDES 8.6 MG TABLET GT ×2 (09:23→21:24)
[2023-07-03] MEDS: FLUCONAZOLE 200 MG TABLET GT (09:23)
[2023-07-03] MEDS: FUROSEMIDE 20 MG TABLET GT (09:23)
--- NOTE | 2023-07-03 13:28 | CHAP ---
11:00 AM Visited by spiritual care volunteer Provided prayer for Patient.
[2023-07-03] MEDS: INSULIN GLARGINE 100 UNIT/ML INSULN.PEN 14 UNIT SC (17:48)
[2023-07-03] MEDS: DOXAZOSIN 2 MG TABLET 4 MG GT (21:24)
[2023-07-03] MEDS: ACETAMINOPHEN 325 MG TABLET 650 MG GT (21:24)
[2023-07-04] VITALS (9 sets, daily range): BP systolic 104–133; BP diastolic 66–83; PULSE 67–83; RESP 18–28; TEMP 36.1–36.6; O2SAT 98–100
[2023-07-04] MEDS: IPRATROPIUM/ALBUTEROL 3 ML AMPUL.NEB INH ×4 (00:36→18:50)
[2023-07-04] MEDS: INSULIN REGULAR, HUMAN 100 UNIT/ML VIAL SC (05:14)
[2023-07-04] MEDS: AMLODIPINE 5 MG TABLET GT (09:14)
[2023-07-04] MEDS: SENNOSIDES 8.6 MG TABLET GT ×2 (09:15→20:45)
[2023-07-04] MEDS: FAMOTIDINE 20 MG TABLET GT ×2 (09:15→20:45)
[2023-07-04] MEDS: FUROSEMIDE 20 MG TABLET GT (09:15)
[2023-07-04] MEDS: FLUCONAZOLE 200 MG TABLET GT (09:16)
--- NOTE | 2023-07-04 12:50 | CHAP ---
Patient was visited by the Spiritual Care Volunteer who prayed for them. (Volunteer was in the sub acute C 10:00-11:00)
[2023-07-04] MEDS: INSULIN GLARGINE 100 UNIT/ML INSULN.PEN 14 UNIT SC (17:37)
[2023-07-05] VITALS (10 sets, daily range): BP systolic 105–137; BP diastolic 61–76; PULSE 68–88; RESP 20–32; TEMP 36.3–36.6; O2SAT 98–100
[2023-07-05] MEDS: IPRATROPIUM/ALBUTEROL 3 ML AMPUL.NEB INH ×4 (00:30→18:45)
[2023-07-05] MEDS: AMLODIPINE 5 MG TABLET GT (09:28)
[2023-07-05] MEDS: FAMOTIDINE 20 MG TABLET GT ×2 (09:29→19:59)
[2023-07-05] MEDS: FLUCONAZOLE 200 MG TABLET GT (09:30)
[2023-07-05] MEDS: FUROSEMIDE 20 MG TABLET GT (09:30)
[2023-07-05] MEDS: SENNOSIDES 8.6 MG TABLET GT ×2 (09:30→19:59)
[2023-07-05] MEDS: INSULIN REGULAR, HUMAN 100 UNIT/ML VIAL SC ×2 (11:26→17:09)
[2023-07-05] MEDS: INSULIN GLARGINE 100 UNIT/ML INSULN.PEN 14 UNIT SC (17:09)
[2023-07-06] VITALS (9 sets, daily range): BP systolic 127–144; BP diastolic 76–89; PULSE 71–87; RESP 12–30; TEMP 36.3–36.4; O2SAT 98–100
[2023-07-06] MEDS: IPRATROPIUM/ALBUTEROL 3 ML AMPUL.NEB INH ×4 (01:25→18:40)
[2023-07-06] MEDS: FAMOTIDINE 20 MG TABLET GT ×2 (09:03→20:19)
[2023-07-06] MEDS: AMLODIPINE 5 MG TABLET GT (09:03)
[2023-07-06] MEDS: FLUCONAZOLE 200 MG TABLET GT (09:04)
[2023-07-06] MEDS: FUROSEMIDE 20 MG TABLET GT (09:04)
[2023-07-06] MEDS: SENNOSIDES 8.6 MG TABLET GT ×2 (09:08→20:19)
[2023-07-06] MEDS: INSULIN REGULAR, HUMAN 100 UNIT/ML VIAL SC (11:40)
--- NOTE | 2023-07-06 15:42 | ESPR_ITS ---
Progress Note - SubAcute SUBJECTIVE Fever:: none Shortness of Breath:: none GI:: no complaints Pain:: none OBJECTIVE Most recent vital signs: Last Vital Signs Temp 97.6 F 07/06/23 05:52 Pulse 72 07/06/23 12:40 Resp 26 H 07/06/23 12:40 BP 129/76 07/06/23 09:03 Pulse Ox 99 07/06/23 12:40 O2 Del Method Mechanical Ventilation 07/05/23 05:13 FiO2 25 07/06/23 12:40 Neurological:: awake Speech:: none Answers questions:: no Respiratory:: shallow breathing Cardiovascular: RRR Abdomen: soft and nontender Extremities:: deformities Decubitus:: improved Tracheostomy:: to ventilator Feeding per:: G tube Complaints:: none ASSESSMENT & PLAN Assessment: Pt. has certainly been awake and eye tracking some. Diagnosis and treatment reviewed. Ventilator settings reviewed. Weaning attempt restarted. Plan: Current treatment as ongoing. Weaning attempts continued. Family updated
[2023-07-06] MEDS: INSULIN GLARGINE 100 UNIT/ML INSULN.PEN 14 UNIT SC (17:30)
[2023-07-06] MEDS: ACETAMINOPHEN 325 MG TABLET 650 MG GT (19:37)
[2023-07-06] MEDS: DOXAZOSIN 2 MG TABLET 4 MG GT (20:19)
[2023-07-07] VITALS (10 sets, daily range): BP systolic 97–150; BP diastolic 66–82; PULSE 44–92; RESP 16–35; TEMP 36.1–36.4; O2SAT 98–100
[2023-07-07] MEDS: IPRATROPIUM/ALBUTEROL 3 ML AMPUL.NEB INH ×4 (01:06→18:59)
[2023-07-07] MEDS: ACETAMINOPHEN 325 MG TABLET 650 MG GT (05:26)
[2023-07-07] MEDS: INSULIN REGULAR, HUMAN 100 UNIT/ML VIAL SC (05:29)
[2023-07-07] MEDS: FAMOTIDINE 20 MG TABLET GT ×2 (09:09→21:06)
[2023-07-07] MEDS: FLUCONAZOLE 200 MG TABLET GT (09:09)
[2023-07-07] MEDS: FUROSEMIDE 20 MG TABLET GT (09:10)
[2023-07-07] MEDS: SENNOSIDES 8.6 MG TABLET GT ×2 (09:30→21:07)
--- NOTE | 2023-07-07 11:08 | PC.CWCCOMPLE ---
Anchor Tack Puller Pharmacist monthly MRR
--- NOTE | 2023-07-07 11:08 | PC.CWCCOMPLE ---
Order Taker Pharmacist monthly MRR
[2023-07-07] MEDS: INSULIN GLARGINE 100 UNIT/ML INSULN.PEN 14 UNIT SC (17:29)
[2023-07-07] MEDS: DOXAZOSIN 2 MG TABLET 4 MG GT (21:06)
[2023-07-08] VITALS (9 sets, daily range): BP systolic 116–138; BP diastolic 72–89; PULSE 65–88; RESP 16–34; TEMP 36.3–36.8; O2SAT 97–100
[2023-07-08] MEDS: IPRATROPIUM/ALBUTEROL 3 ML AMPUL.NEB INH ×4 (00:51→18:47)
[2023-07-08] MEDS: FAMOTIDINE 20 MG TABLET GT ×2 (09:30→21:03)
[2023-07-08] MEDS: FLUCONAZOLE 200 MG TABLET GT (09:30)
[2023-07-08] MEDS: AMLODIPINE 5 MG TABLET GT (09:30)
[2023-07-08] MEDS: SENNOSIDES 8.6 MG TABLET GT ×2 (09:31→21:03)
[2023-07-08] MEDS: FUROSEMIDE 20 MG TABLET GT (09:31)
--- NOTE | 2023-07-08 13:30 | ESPR_ITS ---
Progress Note - SubAcute SUBJECTIVE Fever:: none Shortness of Breath:: none GI:: no complaints Pain:: none OBJECTIVE Most recent vital signs: Last Vital Signs Temp 96.9 F 07/13/23 17:50 Pulse 79 07/13/23 19:56 Resp 24 H 07/13/23 19:56 BP 117/73 07/13/23 17:50 Pulse Ox 100 07/13/23 19:56 O2 Del Method Mechanical Ventilation 07/05/23 05:13 FiO2 25 07/13/23 19:56 Neurological:: awake Speech:: none Answers questions:: no Respiratory:: shallow breathing Cardiovascular: RRR Abdomen: soft and nontender Extremities:: deformities Decubitus:: improved Tracheostomy:: to ventilator Feeding per:: G tube Complaints:: none ASSESSMENT & PLAN Assessment: Pt. has certainly been awake and eye tracking some. Diagnosis and treatment reviewed. Ventilator settings reviewed. Weaning attempt restarted. Plan: Current treatment as ongoing. Weaning attempts continued. Family updated
[2023-07-08] MEDS: COVID VAC 23-24(12UP)(ANDU)/PF 50 MCG/0.5 ML SYRINGE IMi (16:00)
[2023-07-08] MEDS: INSULIN REGULAR, HUMAN 100 UNIT/ML VIAL SC (17:24)
[2023-07-08] MEDS: INSULIN GLARGINE 100 UNIT/ML INSULN.PEN 14 UNIT SC (17:24)
[2023-07-08] MEDS: DOXAZOSIN 2 MG TABLET 4 MG GT (21:03)
[2023-07-09] VITALS (9 sets, daily range): BP systolic 114–136; BP diastolic 70–79; PULSE 70–89; RESP 20–35; TEMP 36.3–36.4; O2SAT 96–100
[2023-07-09] MEDS: IPRATROPIUM/ALBUTEROL 3 ML AMPUL.NEB INH ×4 (00:33→18:35)
[2023-07-09] MEDS: INSULIN REGULAR, HUMAN 100 UNIT/ML VIAL SC ×2 (05:24→17:26)
[2023-07-09] MEDS: AMLODIPINE 5 MG TABLET GT (09:06)
[2023-07-09] MEDS: FUROSEMIDE 20 MG TABLET GT (09:07)
[2023-07-09] MEDS: FAMOTIDINE 20 MG TABLET GT ×2 (09:07→21:01)
[2023-07-09] MEDS: FLUCONAZOLE 200 MG TABLET GT (09:07)
[2023-07-09] MEDS: SENNOSIDES 8.6 MG TABLET GT ×2 (09:07→21:01)
--- NOTE | 2023-07-09 12:51 | PC.NURSE ---
No A/R from vaccination given yesterday. Will continue to monitor.
--- NOTE | 2023-07-09 13:46 | PC.NURSE ---
See EMR Summary for further Immunization charting. Resident received Covid-19 Spikevax booster for - after informed consent obtained from RP. Right deltoid Moderna Spikevax Lot [id number] Exp: 10/01/23
[2023-07-09] MEDS: INSULIN GLARGINE 100 UNIT/ML INSULN.PEN 14 UNIT SC (17:26)
[2023-07-09] MEDS: DOXAZOSIN 2 MG TABLET 4 MG GT (21:01)
[2023-07-09] MEDS: ACETAMINOPHEN 325 MG TABLET 650 MG GT (21:02)
[2023-07-10] VITALS (9 sets, daily range): BP systolic 97–131; BP diastolic 52–72; PULSE 73–86; RESP 16–28; TEMP 36.3; O2SAT 97–100
[2023-07-10] MEDS: IPRATROPIUM/ALBUTEROL 3 ML AMPUL.NEB INH ×4 (01:32→19:15)
[2023-07-10 07:22] LABS: Glucose,Fasting 104 mg/dL (74-106)
[2023-07-10] MEDS: AMLODIPINE 5 MG TABLET GT (09:57)
[2023-07-10] MEDS: FAMOTIDINE 20 MG TABLET GT ×2 (09:58→20:52)
[2023-07-10] MEDS: SENNOSIDES 8.6 MG TABLET GT ×2 (09:59→20:52)
[2023-07-10] MEDS: FUROSEMIDE 20 MG TABLET GT (09:59)
[2023-07-10] MEDS: FLUCONAZOLE 200 MG TABLET GT (09:59)
[2023-07-10] MEDS: ACETAMINOPHEN 325 MG TABLET 650 MG GT (10:00)
--- NOTE | 2023-07-10 13:33 | CHAP ---
11:30 AM Visited by spiritual care volunteer Provided prayer for Patient.
[2023-07-10] MEDS: INSULIN GLARGINE 100 UNIT/ML INSULN.PEN 14 UNIT SC (17:26)
[2023-07-10] MEDS: DOXAZOSIN 2 MG TABLET 4 MG GT (20:51)
[2023-07-11] VITALS (9 sets, daily range): BP systolic 106–128; BP diastolic 68–87; PULSE 66–93; RESP 19–35; TEMP 36.2–36.9; O2SAT 97–99
[2023-07-11] MEDS: IPRATROPIUM/ALBUTEROL 3 ML AMPUL.NEB INH ×4 (01:35→16:35)
[2023-07-11] MEDS: INSULIN REGULAR, HUMAN 100 UNIT/ML VIAL SC ×2 (05:35→11:38)
[2023-07-11] MEDS: FLUCONAZOLE 200 MG TABLET GT (08:52)
[2023-07-11] MEDS: AMLODIPINE 5 MG TABLET GT (08:52)
[2023-07-11] MEDS: FAMOTIDINE 20 MG TABLET GT ×2 (08:52→20:24)
[2023-07-11] MEDS: FUROSEMIDE 20 MG TABLET GT (08:53)
[2023-07-11] MEDS: SENNOSIDES 8.6 MG TABLET GT ×2 (08:53→20:24)
[2023-07-11] MEDS: INSULIN GLARGINE 100 UNIT/ML INSULN.PEN 14 UNIT SC (17:29)
[2023-07-12] VITALS (9 sets, daily range): BP systolic 117–157; BP diastolic 59–97; PULSE 74–88; RESP 22–34; TEMP 36.1–36.4; O2SAT 96–99
[2023-07-12] MEDS: IPRATROPIUM/ALBUTEROL 3 ML AMPUL.NEB INH ×3 (01:18→13:12)
[2023-07-12] MEDS: AMLODIPINE 5 MG TABLET GT (08:03)
[2023-07-12] MEDS: FLUCONAZOLE 200 MG TABLET GT (08:04)
[2023-07-12] MEDS: FAMOTIDINE 20 MG TABLET GT ×2 (08:04→20:27)
[2023-07-12] MEDS: FUROSEMIDE 20 MG TABLET GT (08:04)
[2023-07-12] MEDS: SENNOSIDES 8.6 MG TABLET GT ×2 (08:04→20:27)
[2023-07-12] MEDS: INSULIN REGULAR, HUMAN 100 UNIT/ML VIAL SC (12:04)
[2023-07-12] MEDS: INSULIN GLARGINE 100 UNIT/ML INSULN.PEN 14 UNIT SC (17:43)
[2023-07-13] VITALS (9 sets, daily range): BP systolic 115–153; BP diastolic 69–81; PULSE 74–85; RESP 23–32; TEMP 36.1–36.4; O2SAT 98–100
[2023-07-13] MEDS: IPRATROPIUM/ALBUTEROL 3 ML AMPUL.NEB INH ×4 (00:28→19:53)
[2023-07-13] MEDS: AMLODIPINE 5 MG TABLET GT (09:25)
[2023-07-13] MEDS: FUROSEMIDE 20 MG TABLET GT (09:27)
[2023-07-13] MEDS: FLUCONAZOLE 200 MG TABLET GT (09:27)
[2023-07-13] MEDS: FAMOTIDINE 20 MG TABLET GT ×2 (09:27→20:55)
[2023-07-13] MEDS: SENNOSIDES 8.6 MG TABLET GT ×2 (09:28→20:55)
[2023-07-13] MEDS: INSULIN REGULAR, HUMAN 100 UNIT/ML VIAL SC (12:17)
[2023-07-13] MEDS: INSULIN GLARGINE 100 UNIT/ML INSULN.PEN 14 UNIT SC (17:14)
--- NOTE | 2023-07-13 20:04 | PD.SAPROG ---
Progress Note - SubAcute SUBJECTIVE Fever:: none Shortness of Breath:: none GI:: no complaints Pain:: none OBJECTIVE Most recent vital signs: Last Vital Signs Temp 96.9 F 07/13/23 17:50 Pulse 79 07/13/23 19:56 Resp 24 H 07/13/23 19:56 BP 117/73 07/13/23 17:50 Pulse Ox 100 07/13/23 19:56 O2 Del Method Mechanical Ventilation 07/05/23 05:13 FiO2 25 07/13/23 19:56 Neurological:: awake Speech:: none Answers questions:: no Respiratory:: shallow breathing Cardiovascular: RRR Abdomen: soft and nontender Extremities:: deformities Decubitus:: improved Tracheostomy:: to ventilator Feeding per:: G tube Complaints:: none ASSESSMENT & PLAN Assessment: Pt. has certainly been awake and eye tracking some. Diagnosis and treatment reviewed. Ventilator settings reviewed. Weaning attempt restarted. Plan: Current treatment as ongoing. Weaning attempts continued. Family updated
[2023-07-13] MEDS: DOXAZOSIN 2 MG TABLET 4 MG GT (20:55)
[2023-07-13] MEDS: ACETAMINOPHEN 325 MG TABLET 650 MG GT (20:56)
[2023-07-14] VITALS (9 sets, daily range): BP systolic 114–138; BP diastolic 68–84; PULSE 61–95; RESP 16–29; TEMP 36.1–36.4; O2SAT 96–100
[2023-07-14] MEDS: IPRATROPIUM/ALBUTEROL 3 ML AMPUL.NEB INH ×4 (00:13→20:00)
[2023-07-14] MEDS: INSULIN REGULAR, HUMAN 100 UNIT/ML VIAL SC (05:29)
[2023-07-14] MEDS: FAMOTIDINE 20 MG TABLET GT ×2 (08:29→20:51)
[2023-07-14] MEDS: AMLODIPINE 5 MG TABLET GT (08:29)
[2023-07-14] MEDS: FLUCONAZOLE 200 MG TABLET GT (08:30)
[2023-07-14] MEDS: SENNOSIDES 8.6 MG TABLET GT ×2 (08:31→20:51)
[2023-07-14] MEDS: FUROSEMIDE 20 MG TABLET GT (08:31)
[2023-07-14] MEDS: INSULIN GLARGINE 100 UNIT/ML INSULN.PEN 14 UNIT SC (17:18)
[2023-07-14] MEDS: DOXAZOSIN 2 MG TABLET 4 MG GT (20:51)
[2023-07-15] VITALS (9 sets, daily range): BP systolic 106–135; BP diastolic 66–87; PULSE 71–82; RESP 19–26; TEMP 36.1–36.8; O2SAT 98–100
[2023-07-15] MEDS: IPRATROPIUM/ALBUTEROL 3 ML AMPUL.NEB INH ×4 (00:54→18:50)
[2023-07-15] MEDS: FAMOTIDINE 20 MG TABLET GT ×2 (08:35→20:02)
[2023-07-15] MEDS: AMLODIPINE 5 MG TABLET GT (08:35)
[2023-07-15] MEDS: FLUCONAZOLE 200 MG TABLET GT (08:36)
[2023-07-15] MEDS: SENNOSIDES 8.6 MG TABLET GT ×2 (08:36→20:03)
[2023-07-15] MEDS: FUROSEMIDE 20 MG TABLET GT (08:36)
[2023-07-15] MEDS: INSULIN GLARGINE 100 UNIT/ML INSULN.PEN 14 UNIT SC (17:03)
[2023-07-15] MEDS: INSULIN REGULAR, HUMAN 100 UNIT/ML VIAL SC (17:04)
[2023-07-15] MEDS: ACETAMINOPHEN 325 MG TABLET 650 MG GT (20:00)
[2023-07-15] MEDS: DOXAZOSIN 2 MG TABLET 4 MG GT (20:02)
[2023-07-16] VITALS (9 sets, daily range): BP systolic 110–141; BP diastolic 64–80; PULSE 67–86; RESP 12–31; TEMP 36.2–36.5; O2SAT 97–99
[2023-07-16] MEDS: IPRATROPIUM/ALBUTEROL 3 ML AMPUL.NEB INH ×4 (00:16→23:13)
[2023-07-16] MEDS: AMLODIPINE 5 MG TABLET GT (08:57)
[2023-07-16] MEDS: FAMOTIDINE 20 MG TABLET GT ×2 (08:57→20:15)
[2023-07-16] MEDS: FUROSEMIDE 20 MG TABLET GT (08:58)
[2023-07-16] MEDS: SENNOSIDES 8.6 MG TABLET GT ×2 (08:58→20:15)
[2023-07-16] MEDS: FLUCONAZOLE 200 MG TABLET GT (08:58)
[2023-07-16] MEDS: INSULIN REGULAR, HUMAN 100 UNIT/ML VIAL SC (11:33)
--- NOTE | 2023-07-16 15:26 | PC.SS ---
Room visit: Resident is laying in bed with head of the bed elevated with call light properly placed. Resident continues to answer to simple yes no questions with head nod. Resident remains on ventilator with GT in place for medications and nutrition. resident will remain in current care as he has no changes in care or condition. This SSD will make daily contact with resident and monitor for changes in mood or behavior.
[2023-07-16] MEDS: INSULIN GLARGINE 100 UNIT/ML INSULN.PEN 14 UNIT SC (17:25)
[2023-07-16] MEDS: DOXAZOSIN 2 MG TABLET 4 MG GT (20:14)
[2023-07-17] VITALS (9 sets, daily range): BP systolic 106–136; BP diastolic 67–75; PULSE 69–82; RESP 22–32; TEMP 36.4–36.8; O2SAT 97–99
[2023-07-17] MEDS: IPRATROPIUM/ALBUTEROL 3 ML AMPUL.NEB INH ×4 (00:25→18:40)
[2023-07-17] MEDS: AMLODIPINE 5 MG TABLET GT (09:39)
[2023-07-17] MEDS: FUROSEMIDE 20 MG TABLET GT (09:42)
[2023-07-17] MEDS: SENNOSIDES 8.6 MG TABLET GT ×2 (09:42→20:50)
[2023-07-17] MEDS: FLUCONAZOLE 200 MG TABLET GT (09:42)
[2023-07-17] MEDS: FAMOTIDINE 20 MG TABLET GT ×2 (09:42→20:50)
[2023-07-17] MEDS: INSULIN REGULAR, HUMAN 100 UNIT/ML VIAL SC (12:49)
--- NOTE | 2023-07-17 13:30 | ESPR_ITS ---
Progress Note - SubAcute SUBJECTIVE Fever:: none Shortness of Breath:: none GI:: no complaints Pain:: none OBJECTIVE Most recent vital signs: Last Vital Signs Temp 98.3 F 07/21/23 17:28 Pulse 78 07/21/23 17:28 Resp 30 H 07/21/23 17:28 BP 121/77 07/21/23 17:28 Pulse Ox 99 07/21/23 17:28 O2 Del Method Mechanical Ventilation 07/21/23 06:00 FiO2 25 07/21/23 16:37 Neurological:: awake Speech:: none Answers questions:: no Respiratory:: shallow breathing Cardiovascular: RRR Abdomen: soft and nontender Extremities:: deformities Decubitus:: improved Tracheostomy:: to ventilator Feeding per:: G tube Complaints:: none ASSESSMENT & PLAN Assessment: Pt. has certainly been awake and eye tracking some. Diagnosis and treatment reviewed. Ventilator settings reviewed. Weaning attempt restarted. Plan: Current treatment as ongoing. Weaning attempts continued. Family updated
--- NOTE | 2023-07-17 13:50 | CHAP ---
11:30 AM Visited by spiritual care volunteer Provided prayer for Patient.
[2023-07-17] MEDS: INSULIN GLARGINE 100 UNIT/ML INSULN.PEN 14 UNIT SC (17:23)
[2023-07-17] MEDS: DOXAZOSIN 2 MG TABLET 4 MG GT (20:49)
[2023-07-18] VITALS (9 sets, daily range): BP systolic 105–169; BP diastolic 63–82; PULSE 76–100; RESP 12–60; TEMP 36.2–36.8; O2SAT 94–99
[2023-07-18] MEDS: IPRATROPIUM/ALBUTEROL 3 ML AMPUL.NEB INH ×4 (00:35→18:17)
[2023-07-18] MEDS: INSULIN REGULAR, HUMAN 100 UNIT/ML VIAL SC ×2 (05:29→12:07)
[2023-07-18] MEDS: AMLODIPINE 5 MG TABLET GT (08:37)
[2023-07-18] MEDS: FAMOTIDINE 20 MG TABLET GT ×2 (08:37→20:47)
[2023-07-18] MEDS: SENNOSIDES 8.6 MG TABLET GT ×2 (08:39→20:47)
[2023-07-18] MEDS: FLUCONAZOLE 200 MG TABLET GT (08:39)
[2023-07-18] MEDS: FUROSEMIDE 20 MG TABLET GT (08:39)
[2023-07-18] MEDS: ONDANSETRON HCL 4 MG TABLET PO (08:40)
--- NOTE | 2023-07-18 11:52 | CHAP ---
Patient was visited by the Spiritual Care Volunteer who prayed for them. (Volunteer was in the hospital 10:33-11:52)
[2023-07-18] MEDS: ACETAMINOPHEN 325 MG TABLET 650 MG GT ×2 (12:50→20:48)
[2023-07-18] MEDS: INSULIN GLARGINE 100 UNIT/ML INSULN.PEN 14 UNIT SC (17:39)
[2023-07-18] MEDS: DOXAZOSIN 2 MG TABLET 4 MG GT (20:47)
[2023-07-19] VITALS (9 sets, daily range): BP systolic 110–129; BP diastolic 64–83; PULSE 76–87; RESP 21–31; TEMP 36.2–36.6; O2SAT 96–98
[2023-07-19] MEDS: IPRATROPIUM/ALBUTEROL 3 ML AMPUL.NEB INH ×4 (00:55→18:23)
[2023-07-19] MEDS: INSULIN REGULAR, HUMAN 100 UNIT/ML VIAL SC (05:38)
[2023-07-19] MEDS: FLUCONAZOLE 200 MG TABLET GT (09:24)
[2023-07-19] MEDS: FAMOTIDINE 20 MG TABLET GT ×2 (09:24→20:43)
[2023-07-19] MEDS: SENNOSIDES 8.6 MG TABLET GT ×2 (09:24→20:44)
[2023-07-19] MEDS: AMLODIPINE 5 MG TABLET GT (09:24)
[2023-07-19] MEDS: FUROSEMIDE 20 MG TABLET GT (09:24)
[2023-07-19] MEDS: ACETAMINOPHEN 325 MG TABLET 650 MG GT (14:00)
[2023-07-19] MEDS: INSULIN GLARGINE 100 UNIT/ML INSULN.PEN 14 UNIT SC (17:04)
[2023-07-19] MEDS: DOXAZOSIN 2 MG TABLET 4 MG GT (20:43)
[2023-07-20] VITALS (9 sets, daily range): BP systolic 110–133; BP diastolic 61–74; PULSE 71–88; RESP 19–26; TEMP 36.1–36.7; O2SAT 98–99
[2023-07-20] MEDS: IPRATROPIUM/ALBUTEROL 3 ML AMPUL.NEB INH ×4 (00:54→18:23)
[2023-07-20] MEDS: AMLODIPINE 5 MG TABLET GT (08:58)
[2023-07-20] MEDS: FAMOTIDINE 20 MG TABLET GT ×2 (08:58→20:45)
[2023-07-20] MEDS: FUROSEMIDE 20 MG TABLET GT (08:59)
[2023-07-20] MEDS: FLUCONAZOLE 200 MG TABLET GT (08:59)
[2023-07-20] MEDS: SENNOSIDES 8.6 MG TABLET GT ×2 (08:59→20:45)
--- NOTE | 2023-07-20 10:15 | CHAP ---
Patient was visited by the Spiritual Care Volunteer who prayed for them. (Volunteer was in the hospital 09:25-10:15)
[2023-07-20] MEDS: INSULIN REGULAR, HUMAN 100 UNIT/ML VIAL SC (12:03)
[2023-07-20] MEDS: INSULIN GLARGINE 100 UNIT/ML INSULN.PEN 14 UNIT SC (17:22)
[2023-07-20] MEDS: DOXAZOSIN 2 MG TABLET 4 MG GT (20:45)
[2023-07-21] VITALS (9 sets, daily range): BP systolic 108–145; BP diastolic 63–87; PULSE 60–79; RESP 22–32; TEMP 36.2–36.8; O2SAT 98–99
[2023-07-21] MEDS: IPRATROPIUM/ALBUTEROL 3 ML AMPUL.NEB INH ×4 (07:36→16:37)
[2023-07-21] MEDS: AMLODIPINE 5 MG TABLET GT (09:00)
[2023-07-21] MEDS: FAMOTIDINE 20 MG TABLET GT ×2 (09:01→20:54)
[2023-07-21] MEDS: FLUCONAZOLE 200 MG TABLET GT (09:01)
[2023-07-21] MEDS: FUROSEMIDE 20 MG TABLET GT (09:01)
[2023-07-21] MEDS: SENNOSIDES 8.6 MG TABLET GT ×2 (09:01→20:54)
[2023-07-21] MEDS: INSULIN GLARGINE 100 UNIT/ML INSULN.PEN 14 UNIT SC (17:51)
--- NOTE | 2023-07-21 19:58 | PD.SAPROG ---
Progress Note - SubAcute SUBJECTIVE Fever:: none Shortness of Breath:: none GI:: no complaints Pain:: none OBJECTIVE Most recent vital signs: Last Vital Signs Temp 98.3 F 07/21/23 17:28 Pulse 78 07/21/23 17:28 Resp 30 H 07/21/23 17:28 BP 121/77 07/21/23 17:28 Pulse Ox 99 07/21/23 17:28 O2 Del Method Mechanical Ventilation 07/21/23 06:00 FiO2 25 07/21/23 16:37 Neurological:: awake Speech:: none Answers questions:: no Respiratory:: shallow breathing Cardiovascular: RRR Abdomen: soft and nontender Extremities:: deformities Decubitus:: improved Tracheostomy:: to ventilator Feeding per:: G tube Complaints:: none ASSESSMENT & PLAN Assessment: Pt. has certainly been awake and eye tracking some. Diagnosis and treatment reviewed. Ventilator settings reviewed. Weaning attempt restarted. Plan: Current treatment as ongoing. Weaning attempts continued. Family updated
[2023-07-21] MEDS: DOXAZOSIN 2 MG TABLET 4 MG GT (20:53)
[2023-07-22] VITALS (8 sets, daily range): BP systolic 112–137; BP diastolic 70–86; PULSE 71–87; RESP 20–29; TEMP 36.2–36.8; O2SAT 96–99
[2023-07-22] MEDS: IPRATROPIUM/ALBUTEROL 3 ML AMPUL.NEB INH ×4 (01:13→16:40)
[2023-07-22 08:33] LABS: Glucose,Fasting 127 mg/dL (74-106)
[2023-07-22] MEDS: AMLODIPINE 5 MG TABLET GT (08:47)
[2023-07-22] MEDS: FAMOTIDINE 20 MG TABLET GT ×2 (08:47→20:43)
[2023-07-22] MEDS: SENNOSIDES 8.6 MG TABLET GT ×2 (08:48→20:43)
[2023-07-22] MEDS: FUROSEMIDE 20 MG TABLET GT (08:48)
[2023-07-22] MEDS: FLUCONAZOLE 200 MG TABLET GT (08:48)
[2023-07-22] MEDS: INSULIN REGULAR, HUMAN 100 UNIT/ML VIAL SC (11:35)
[2023-07-22] MEDS: INSULIN GLARGINE 100 UNIT/ML INSULN.PEN 14 UNIT SC (18:21)
[2023-07-22] MEDS: ACETAMINOPHEN 325 MG TABLET 650 MG GT (18:50)
[2023-07-22] MEDS: DOXAZOSIN 2 MG TABLET 4 MG GT (20:42)
[2023-07-23] VITALS (10 sets, daily range): BP systolic 95–125; BP diastolic 59–85; PULSE 67–88; RESP 22–30; TEMP 36.2–36.4; O2SAT 97–100
[2023-07-23] MEDS: IPRATROPIUM/ALBUTEROL 3 ML AMPUL.NEB INH ×4 (00:15→16:40)
[2023-07-23] MEDS: INSULIN REGULAR, HUMAN 100 UNIT/ML VIAL SC ×2 (05:18→17:52)
[2023-07-23] MEDS: FAMOTIDINE 20 MG TABLET GT ×2 (09:49→20:21)
[2023-07-23] MEDS: SENNOSIDES 8.6 MG TABLET GT ×2 (09:49→20:21)
[2023-07-23] MEDS: FUROSEMIDE 20 MG TABLET GT (09:49)
[2023-07-23] MEDS: FLUCONAZOLE 200 MG TABLET GT (09:49)
--- NOTE | 2023-07-23 14:51 | CHAP ---
11:15 AM visited by Spiritual Care Volunteer from [facility]. She provided marivel to patient.
[2023-07-23] MEDS: INSULIN GLARGINE 100 UNIT/ML INSULN.PEN 14 UNIT SC (17:51)
[2023-07-23] MEDS: ACETAMINOPHEN 325 MG TABLET 650 MG GT (20:21)
[2023-07-23] MEDS: DOXAZOSIN 2 MG TABLET 4 MG GT (20:21)
[2023-07-24] VITALS (10 sets, daily range): BP systolic 95–137; BP diastolic 56–87; PULSE 69–84; RESP 17–32; TEMP 36.1–36.6; O2SAT 96–99
[2023-07-24] MEDS: IPRATROPIUM/ALBUTEROL 3 ML AMPUL.NEB INH ×4 (00:40→19:47)
[2023-07-24] MEDS: INSULIN REGULAR, HUMAN 100 UNIT/ML VIAL SC (05:24)
[2023-07-24] MEDS: SENNOSIDES 8.6 MG TABLET GT ×2 (09:10→20:02)
[2023-07-24] MEDS: FLUCONAZOLE 200 MG TABLET GT (09:10)
[2023-07-24] MEDS: FUROSEMIDE 20 MG TABLET GT (09:10)
--- NOTE | 2023-07-24 13:35 | PC.SS ---
Room visit: Resident is laying in bed with head of the bed elevated with call light properly placed with no signs of distress. Resident will remain in current care as he has no changes in care or condition. Resident remains on vent with GT in place with no signs of distress. He is total care unable to make needs known. Staff will continue to provide all subacute care needs. Resident is not ready to DC to lower level of care as he has a heavy care regimen, family unable to provide care at home. This SSD will continue to make daily contact with resident and monitor for changes in mood or behavior, SSD will offer emotional support as he may needs.
--- NOTE | 2023-07-24 14:22 | CHAP ---
11:30 AM Visited by spiritual care volunteer Provided prayer for Patient.
[2023-07-24] MEDS: INSULIN GLARGINE 100 UNIT/ML INSULN.PEN 14 UNIT SC (17:35)
[2023-07-24] MEDS: FAMOTIDINE 20 MG TABLET GT (20:02)
[2023-07-24] MEDS: DOXAZOSIN 2 MG TABLET 4 MG GT (20:02)
[2023-07-25] VITALS (7 sets, daily range): BP systolic 108–133; BP diastolic 74–83; PULSE 76–82; RESP 15–28; TEMP 36.4–36.8; O2SAT 95–100
[2023-07-25] MEDS: IPRATROPIUM/ALBUTEROL 3 ML AMPUL.NEB INH ×4 (00:31→19:16)
[2023-07-25] MEDS: AMLODIPINE 5 MG TABLET GT (09:00)
[2023-07-25] MEDS: FUROSEMIDE 20 MG TABLET GT (09:00)
[2023-07-25] MEDS: FAMOTIDINE 20 MG TABLET GT ×2 (09:00→20:23)
[2023-07-25] MEDS: FLUCONAZOLE 200 MG TABLET GT (09:00)
[2023-07-25] MEDS: SENNOSIDES 8.6 MG TABLET GT ×2 (09:00→20:23)
[2023-07-25] MEDS: INSULIN GLARGINE 100 UNIT/ML INSULN.PEN 14 UNIT SC (17:54)
--- NOTE | 2023-07-25 18:33 | ESPR_ITS ---
Progress Note - SubAcute SUBJECTIVE Fever:: none Shortness of Breath:: none GI:: no complaints Pain:: none OBJECTIVE Most recent vital signs: Last Vital Signs Temp 97.0 F 07/25/23 17:53 Pulse 76 07/25/23 17:53 Resp 24 H 07/25/23 17:53 BP 130/72 07/25/23 17:53 Pulse Ox 99 07/25/23 17:53 O2 Del Method Mechanical Ventilation 07/21/23 06:00 FiO2 25 07/25/23 13:25 Neurological:: awake Speech:: none Answers questions:: no Respiratory:: shallow breathing Cardiovascular: RRR Abdomen: soft and nontender Extremities:: deformities Decubitus:: improved Tracheostomy:: to ventilator Feeding per:: G tube Complaints:: none ASSESSMENT & PLAN Assessment: Pt. has certainly been awake and eye tracking some. Diagnosis and treatment reviewed. Ventilator settings reviewed. Weaning attempt restarted but not tolerated Plan: Current treatment as ongoing. Weaning attempts continued. Family updated
[2023-07-25] MEDS: DOXAZOSIN 2 MG TABLET 4 MG GT (20:22)
[2023-07-25] MEDS: ACETAMINOPHEN 325 MG TABLET 650 MG GT (20:24)
[2023-07-26] VITALS (9 sets, daily range): BP systolic 114–145; BP diastolic 66–80; PULSE 70–86; RESP 20–30; TEMP 36.2–36.6; O2SAT 97–100
[2023-07-26] MEDS: IPRATROPIUM/ALBUTEROL 3 ML AMPUL.NEB INH ×4 (00:41→16:20)
[2023-07-26] MEDS: AMLODIPINE 5 MG TABLET GT (09:25)
[2023-07-26] MEDS: FAMOTIDINE 20 MG TABLET GT ×2 (09:26→21:49)
[2023-07-26] MEDS: SENNOSIDES 8.6 MG TABLET GT ×2 (09:28→21:49)
[2023-07-26] MEDS: FLUCONAZOLE 200 MG TABLET GT (09:28)
[2023-07-26] MEDS: FUROSEMIDE 20 MG TABLET GT (09:28)
[2023-07-26] MEDS: INSULIN GLARGINE 100 UNIT/ML INSULN.PEN 14 UNIT SC (17:27)
[2023-07-26] MEDS: INSULIN REGULAR, HUMAN 100 UNIT/ML VIAL SC (17:28)
[2023-07-26] MEDS: DOXAZOSIN 2 MG TABLET 4 MG GT (21:48)
[2023-07-27] VITALS (9 sets, daily range): BP systolic 112–136; BP diastolic 69–89; PULSE 70–83; RESP 16–28; TEMP 36.2–36.5; O2SAT 96–100
[2023-07-27] MEDS: IPRATROPIUM/ALBUTEROL 3 ML AMPUL.NEB INH ×4 (00:51→19:10)
[2023-07-27] MEDS: AMLODIPINE 5 MG TABLET GT (09:01)
[2023-07-27] MEDS: FLUCONAZOLE 200 MG TABLET GT (09:01)
[2023-07-27] MEDS: FAMOTIDINE 20 MG TABLET GT ×2 (09:01→20:30)
[2023-07-27] MEDS: SENNOSIDES 8.6 MG TABLET GT ×2 (09:02→20:30)
[2023-07-27] MEDS: FUROSEMIDE 20 MG TABLET GT (09:02)
--- NOTE | 2023-07-27 12:33 | PC.NURSE ---
Resident received bed bath where trach care and skin treatments were provided. Linens were all changed and resident was repositioned. Resident tolerated well with no sob or s/s of pain or discomfort noted. Call light in reach.
[2023-07-27] MEDS: INSULIN GLARGINE 100 UNIT/ML INSULN.PEN 14 UNIT SC (17:28)
[2023-07-27] MEDS: DOXAZOSIN 2 MG TABLET 4 MG GT (20:30)
[2023-07-28] VITALS (9 sets, daily range): BP systolic 109–128; BP diastolic 70–77; PULSE 69–81; RESP 19–27; TEMP 36.3–36.6; O2SAT 98–100
[2023-07-28] MEDS: IPRATROPIUM/ALBUTEROL 3 ML AMPUL.NEB INH ×4 (00:51→19:57)
[2023-07-28] MEDS: INSULIN REGULAR, HUMAN 100 UNIT/ML VIAL SC ×3 (05:41→17:12)
[2023-07-28] MEDS: AMLODIPINE 5 MG TABLET GT (08:04)
[2023-07-28] MEDS: FLUCONAZOLE 200 MG TABLET GT (08:05)
[2023-07-28] MEDS: SENNOSIDES 8.6 MG TABLET GT ×2 (08:05→20:34)
[2023-07-28] MEDS: FUROSEMIDE 20 MG TABLET GT (08:05)
[2023-07-28] MEDS: FAMOTIDINE 20 MG TABLET GT ×2 (08:05→20:34)
[2023-07-28] MEDS: INSULIN GLARGINE 100 UNIT/ML INSULN.PEN 14 UNIT SC (17:12)
[2023-07-28] MEDS: DOXAZOSIN 2 MG TABLET 4 MG GT (20:34)
[2023-07-29] VITALS (10 sets, daily range): BP systolic 110–126; BP diastolic 68–76; PULSE 72–79; RESP 20–26; TEMP 36.1–36.4; O2SAT 95–100
[2023-07-29] MEDS: IPRATROPIUM/ALBUTEROL 3 ML AMPUL.NEB INH ×4 (01:45→17:05)
[2023-07-29] MEDS: INSULIN REGULAR, HUMAN 100 UNIT/ML VIAL SC ×2 (05:38→11:32)
[2023-07-29] MEDS: FAMOTIDINE 20 MG TABLET GT ×2 (08:51→19:59)
[2023-07-29] MEDS: FUROSEMIDE 20 MG TABLET GT (08:52)
[2023-07-29] MEDS: FLUCONAZOLE 200 MG TABLET GT (08:52)
[2023-07-29] MEDS: SENNOSIDES 8.6 MG TABLET GT ×2 (08:53→19:59)
--- NOTE | 2023-07-29 09:23 | CHAP ---
Patient was visited on 07/27/2023 between 0932 and 1115 by a [facility] Spiritual Care Volunteer and received prayer.
[2023-07-29] MEDS: AMLODIPINE 5 MG TABLET GT (09:30)
--- NOTE | 2023-07-29 10:59 | CHAP ---
Patient was visited by a [facility] Spiritual Care Volunteer on 07/25/2023 between 1050 and 1203 and received encouragement and prayer.
[2023-07-29] MEDS: INSULIN GLARGINE 100 UNIT/ML INSULN.PEN 14 UNIT SC (17:16)
--- NOTE | 2023-07-29 20:00 | ESPR_ITS ---
Progress Note - SubAcute SUBJECTIVE Fever:: none Shortness of Breath:: none GI:: no complaints Pain:: none OBJECTIVE Most recent vital signs: Last Vital Signs Temp 97.2 F 07/29/23 17:55 Pulse 77 07/29/23 17:55 Resp 23 H 07/29/23 17:55 BP 124/76 07/29/23 17:55 Pulse Ox 100 07/29/23 17:55 O2 Del Method Mechanical Ventilation 07/21/23 06:00 FiO2 25 07/29/23 17:05 Neurological:: alert (responds to simple commands, shakes hands with his left) Speech:: none Answers questions:: no Respiratory:: shallow breathing Cardiovascular: RRR Abdomen: soft and nontender Extremities:: deformities Decubitus:: improved Tracheostomy:: to ventilator Feeding per:: G tube Complaints:: none ASSESSMENT & PLAN Assessment: Pt. has certainly been awake and eye tracking some does extend his left hand when offered a hand shake Diagnosis and treatment reviewed. Ventilator settings reviewed. Weaning attempt restarted but not tolerated Plan: Current treatment as ongoing. Weaning attempts continued. Family updated
[2023-07-30] VITALS (9 sets, daily range): BP systolic 112–132; BP diastolic 63–78; PULSE 74–90; RESP 20–26; TEMP 36.3–36.7; O2SAT 98–100
[2023-07-30] MEDS: IPRATROPIUM/ALBUTEROL 3 ML AMPUL.NEB INH ×4 (00:14→16:40)
[2023-07-30] MEDS: INSULIN REGULAR, HUMAN 100 UNIT/ML VIAL SC ×2 (05:47→17:37)
[2023-07-30] MEDS: AMLODIPINE 5 MG TABLET GT (09:10)
[2023-07-30] MEDS: FLUCONAZOLE 200 MG TABLET GT (09:11)
[2023-07-30] MEDS: FAMOTIDINE 20 MG TABLET GT ×2 (09:11→20:18)
[2023-07-30] MEDS: SENNOSIDES 8.6 MG TABLET GT ×2 (09:12→20:18)
[2023-07-30] MEDS: FUROSEMIDE 20 MG TABLET GT (09:12)
[2023-07-30] MEDS: INSULIN GLARGINE 100 UNIT/ML INSULN.PEN 14 UNIT SC (17:36)
[2023-07-30] MEDS: DOXAZOSIN 2 MG TABLET 4 MG GT (20:18)
[2023-07-31] VITALS (9 sets, daily range): BP systolic 118–134; BP diastolic 70–87; PULSE 68–79; RESP 17–26; TEMP 36.3–36.8; O2SAT 98–100
[2023-07-31] MEDS: IPRATROPIUM/ALBUTEROL 3 ML AMPUL.NEB INH ×4 (00:40→18:28)
[2023-07-31] MEDS: AMLODIPINE 5 MG TABLET GT (09:06)
[2023-07-31] MEDS: FAMOTIDINE 20 MG TABLET GT ×2 (09:07→20:53)
[2023-07-31] MEDS: SENNOSIDES 8.6 MG TABLET GT ×2 (09:08→20:53)
[2023-07-31] MEDS: FUROSEMIDE 20 MG TABLET GT (09:08)
[2023-07-31] MEDS: FLUCONAZOLE 200 MG TABLET GT (09:08)
[2023-07-31] MEDS: INSULIN GLARGINE 100 UNIT/ML INSULN.PEN 14 UNIT SC (17:09)
[2023-07-31] MEDS: DOXAZOSIN 2 MG TABLET 4 MG GT (20:52)
[2023-08-01] VITALS (9 sets, daily range): BP systolic 103–141; BP diastolic 67–78; PULSE 52–82; RESP 21–29; TEMP 35.9–36.6; O2SAT 97–100
[2023-08-01] MEDS: INSULIN REGULAR, HUMAN 100 UNIT/ML VIAL SC ×3 (00:31→23:42)
[2023-08-01] MEDS: IPRATROPIUM/ALBUTEROL 3 ML AMPUL.NEB INH ×4 (00:32→18:35)
[2023-08-01] MEDS: AMLODIPINE 5 MG TABLET GT (08:31)
[2023-08-01] MEDS: FAMOTIDINE 20 MG TABLET GT ×2 (08:32→20:02)
[2023-08-01] MEDS: FLUCONAZOLE 200 MG TABLET GT (08:32)
[2023-08-01] MEDS: SENNOSIDES 8.6 MG TABLET GT ×2 (08:34→20:02)
[2023-08-01] MEDS: FUROSEMIDE 20 MG TABLET GT (08:34)
--- NOTE | 2023-08-01 11:35 | CHAP ---
Patient was visited by the Spiritual Care Volunteer who prayed for them. (Volunteer was in the hospital from 09:58-11:35).
[2023-08-01] MEDS: INSULIN GLARGINE 100 UNIT/ML INSULN.PEN 14 UNIT SC (17:31)
[2023-08-01] MEDS: DOXAZOSIN 2 MG TABLET 4 MG GT (20:02)
[2023-08-02] VITALS (10 sets, daily range): BP systolic 102–122; BP diastolic 62–74; PULSE 58–84; RESP 21–28; TEMP 36.2–36.4; O2SAT 98–100
[2023-08-02] MEDS: IPRATROPIUM/ALBUTEROL 3 ML AMPUL.NEB INH ×4 (00:56→18:29)
[2023-08-02] MEDS: FLUCONAZOLE 200 MG TABLET GT (09:25)
[2023-08-02] MEDS: AMLODIPINE 5 MG TABLET GT (09:25)
[2023-08-02] MEDS: FAMOTIDINE 20 MG TABLET GT ×2 (09:25→20:49)
[2023-08-02] MEDS: FUROSEMIDE 20 MG TABLET GT (09:26)
[2023-08-02] MEDS: SENNOSIDES 8.6 MG TABLET GT ×2 (09:26→20:49)
[2023-08-02] MEDS: ACETAMINOPHEN 325 MG TABLET 650 MG GT (09:30)
--- NOTE | 2023-08-02 16:57 | ESPR_ITS ---
Progress Note - SubAcute SUBJECTIVE Fever:: none Shortness of Breath:: none GI:: no complaints Pain:: none OBJECTIVE Most recent vital signs: Last Vital Signs Temp 97.2 F 08/02/23 11:55 Pulse 81 08/02/23 12:35 Resp 21 H 08/02/23 12:35 BP 106/62 08/02/23 11:55 Pulse Ox 98 08/02/23 12:35 O2 Del Method Mechanical Ventilation 07/21/23 06:00 FiO2 25 08/02/23 12:35 Neurological:: alert (responds to simple commands, shakes hands with his left) Speech:: none Answers questions:: no Respiratory:: shallow breathing Cardiovascular: RRR Abdomen: soft and nontender Extremities:: deformities Decubitus:: improved Tracheostomy:: to ventilator Feeding per:: G tube Complaints:: none ASSESSMENT & PLAN Assessment: Pt. has certainly been awake and eye tracking some, does extend his left hand when offered a hand shake Diagnosis and treatment reviewed. Ventilator settings reviewed. Weaning attempt restarted but not tolerated Plan: Current treatment as ongoing. Weaning attempts continued. Family updated
[2023-08-02] MEDS: INSULIN GLARGINE 100 UNIT/ML INSULN.PEN 14 UNIT SC (17:56)
[2023-08-02] MEDS: DOXAZOSIN 2 MG TABLET 4 MG GT (20:49)
[2023-08-02] MEDS: INSULIN REGULAR, HUMAN 100 UNIT/ML VIAL SC (23:18)
[2023-08-03] VITALS (9 sets, daily range): BP systolic 97–144; BP diastolic 54–74; PULSE 80–87; RESP 23–31; TEMP 36.2–37.1; O2SAT 98–99
[2023-08-03] MEDS: IPRATROPIUM/ALBUTEROL 3 ML AMPUL.NEB INH ×4 (00:43→19:30)
[2023-08-03] MEDS: AMLODIPINE 5 MG TABLET GT (09:20)
[2023-08-03] MEDS: FAMOTIDINE 20 MG TABLET GT ×2 (09:20→20:25)
[2023-08-03] MEDS: FUROSEMIDE 20 MG TABLET GT (09:20)
[2023-08-03] MEDS: FLUCONAZOLE 200 MG TABLET GT (09:20)
[2023-08-03] MEDS: SENNOSIDES 8.6 MG TABLET GT ×2 (09:20→20:25)
[2023-08-03] MEDS: INSULIN REGULAR, HUMAN 100 UNIT/ML VIAL SC (11:35)
[2023-08-03] MEDS: ACETAMINOPHEN 325 MG TABLET 650 MG GT (11:54)
[2023-08-03] MEDS: INSULIN GLARGINE 100 UNIT/ML INSULN.PEN 14 UNIT SC (17:08)
[2023-08-03] MEDS: DOXAZOSIN 2 MG TABLET 4 MG GT (20:24)
[2023-08-04] VITALS (10 sets, daily range): BP systolic 103–126; BP diastolic 64–76; PULSE 65–86; RESP 19–28; TEMP 35.9–36.4; O2SAT 98–99
[2023-08-04] MEDS: IPRATROPIUM/ALBUTEROL 3 ML AMPUL.NEB INH ×4 (00:15→18:48)
[2023-08-04] MEDS: INSULIN REGULAR, HUMAN 100 UNIT/ML VIAL SC ×2 (05:21→17:43)
[2023-08-04] MEDS: FUROSEMIDE 20 MG TABLET GT (08:53)
[2023-08-04] MEDS: SENNOSIDES 8.6 MG TABLET GT ×2 (08:53→20:45)
[2023-08-04] MEDS: AMLODIPINE 5 MG TABLET GT (09:10)
[2023-08-04] MEDS: FAMOTIDINE 20 MG TABLET GT ×2 (09:10→20:44)
[2023-08-04] MEDS: FLUCONAZOLE 200 MG TABLET GT (09:12)
[2023-08-04] MEDS: INSULIN GLARGINE 100 UNIT/ML INSULN.PEN 14 UNIT SC (17:48)
[2023-08-04] MEDS: DOXAZOSIN 2 MG TABLET 4 MG GT (20:44)
[2023-08-04] MEDS: ACETAMINOPHEN 325 MG TABLET 650 MG GT (20:45)
[2023-08-05] VITALS (8 sets, daily range): BP systolic 122–144; BP diastolic 64–82; PULSE 79–90; RESP 20–31; TEMP 36.2–36.4; O2SAT 95–99
[2023-08-05] MEDS: IPRATROPIUM/ALBUTEROL 3 ML AMPUL.NEB INH ×4 (00:46→18:31)
[2023-08-05] MEDS: FAMOTIDINE 20 MG TABLET GT ×2 (09:28→20:37)
[2023-08-05] MEDS: AMLODIPINE 5 MG TABLET GT (09:28)
[2023-08-05] MEDS: FLUCONAZOLE 200 MG TABLET GT (09:28)
[2023-08-05] MEDS: FUROSEMIDE 20 MG TABLET GT (09:29)
[2023-08-05] MEDS: SENNOSIDES 8.6 MG TABLET GT ×2 (09:29→20:37)
[2023-08-05] MEDS: INSULIN GLARGINE 100 UNIT/ML INSULN.PEN 14 UNIT SC (17:45)
[2023-08-05] MEDS: DOXAZOSIN 2 MG TABLET 4 MG GT (20:37)
[2023-08-06] VITALS (10 sets, daily range): BP systolic 103–121; BP diastolic 67–81; PULSE 72–97; RESP 25–32; TEMP 36–36.4; O2SAT 70–100
[2023-08-06] MEDS: IPRATROPIUM/ALBUTEROL 3 ML AMPUL.NEB INH ×4 (00:07→19:30)
[2023-08-06] MEDS: FLUCONAZOLE 200 MG TABLET GT (08:03)
[2023-08-06] MEDS: FAMOTIDINE 20 MG TABLET GT ×2 (08:03→20:33)
[2023-08-06] MEDS: FUROSEMIDE 20 MG TABLET GT (08:04)
[2023-08-06] MEDS: SENNOSIDES 8.6 MG TABLET GT ×2 (08:04→20:33)
[2023-08-06] MEDS: INSULIN REGULAR, HUMAN 100 UNIT/ML VIAL SC (12:32)
--- NOTE | 2023-08-06 15:39 | PC.CWCCOMPLE ---
[employer] Pharmacist monthly MRR
[2023-08-06] MEDS: INSULIN GLARGINE 100 UNIT/ML INSULN.PEN 14 UNIT SC (17:16)
[2023-08-06] MEDS: DOXAZOSIN 2 MG TABLET 4 MG GT (20:32)
--- NOTE | 2023-08-06 23:17 | ESPR_ITS ---
Progress Note - SubAcute SUBJECTIVE Fever:: none Shortness of Breath:: none GI:: no complaints Pain:: none OBJECTIVE Most recent vital signs: Last Vital Signs Temp 97.6 F 08/06/23 18:00 Pulse 79 08/06/23 19:30 Resp 29 H 08/06/23 19:30 BP 111/71 08/06/23 18:00 Pulse Ox 100 08/06/23 19:30 O2 Del Method Mechanical Ventilation 08/06/23 18:00 FiO2 25 08/06/23 20:50 Neurological:: alert (responds to simple commands, shakes hands with his left) Speech:: none Answers questions:: no Respiratory:: shallow breathing Cardiovascular: RRR Abdomen: soft and nontender Extremities:: deformities Decubitus:: improved Tracheostomy:: to ventilator Feeding per:: G tube Complaints:: none ASSESSMENT & PLAN Assessment: Pt. has certainly been awake and eye tracking some, does extend his left hand when offered a hand shake Diagnosis and treatment reviewed. Ventilator settings reviewed. Weaning attempt restarted but not tolerated Plan: Current treatment as ongoing. Weaning attempts continued. Family updated
[2023-08-07] VITALS (10 sets, daily range): BP systolic 110–139; BP diastolic 72–79; PULSE 67–85; RESP 22–27; TEMP 36.1–36.5; O2SAT 96–100
[2023-08-07] MEDS: IPRATROPIUM/ALBUTEROL 3 ML AMPUL.NEB INH ×4 (00:20→19:10)
[2023-08-07] MEDS: AMLODIPINE 5 MG TABLET GT (09:07)
[2023-08-07] MEDS: FAMOTIDINE 20 MG TABLET GT ×2 (09:08→20:11)
[2023-08-07] MEDS: FLUCONAZOLE 200 MG TABLET GT (09:08)
[2023-08-07] MEDS: SENNOSIDES 8.6 MG TABLET GT ×2 (09:09→20:11)
[2023-08-07] MEDS: FUROSEMIDE 20 MG TABLET GT (09:09)
[2023-08-07] MEDS: INSULIN REGULAR, HUMAN 100 UNIT/ML VIAL SC (12:11)
--- NOTE | 2023-08-07 15:14 | CHAP ---
11:00 AM Visited by spiritual care volunteer Provided prayer for Patient.
[2023-08-07] MEDS: INSULIN GLARGINE 100 UNIT/ML INSULN.PEN 14 UNIT SC (17:16)
[2023-08-08] VITALS (7 sets, daily range): BP systolic 106–142; BP diastolic 65–87; PULSE 66–78; RESP 22–29; TEMP 36.2–36.4; O2SAT 98–100
[2023-08-08] MEDS: IPRATROPIUM/ALBUTEROL 3 ML AMPUL.NEB INH ×4 (00:27→18:40)
[2023-08-08 07:29] LABS: Glucose,Fasting 137 mg/dL (74-106)
[2023-08-08] MEDS: FLUCONAZOLE 200 MG TABLET GT (08:12)
[2023-08-08] MEDS: FAMOTIDINE 20 MG TABLET GT ×2 (08:12→20:42)
[2023-08-08] MEDS: SENNOSIDES 8.6 MG TABLET GT ×2 (08:13→20:42)
[2023-08-08] MEDS: FUROSEMIDE 20 MG TABLET GT (08:13)
[2023-08-08] MEDS: INSULIN REGULAR, HUMAN 100 UNIT/ML VIAL SC (11:46)
--- NOTE | 2023-08-08 13:50 | PC.NURSE ---
Resident completed Diflucan for fungus to nails to feet and nails, Seen by Dr Diaz and no new further orders made
[2023-08-08] MEDS: INSULIN GLARGINE 100 UNIT/ML INSULN.PEN 14 UNIT SC (17:04)
[2023-08-08] MEDS: DOXAZOSIN 2 MG TABLET 4 MG GT (20:42)
[2023-08-09] VITALS (9 sets, daily range): BP systolic 97–131; BP diastolic 62–76; PULSE 70–85; RESP 20–27; TEMP 36–36.6; O2SAT 96–100
[2023-08-09] MEDS: IPRATROPIUM/ALBUTEROL 3 ML AMPUL.NEB INH ×4 (00:58→19:22)
[2023-08-09] MEDS: FUROSEMIDE 20 MG TABLET GT (09:17)
[2023-08-09] MEDS: FAMOTIDINE 20 MG TABLET GT ×2 (09:17→20:50)
[2023-08-09] MEDS: SENNOSIDES 8.6 MG TABLET GT ×2 (09:17→20:50)
[2023-08-09] MEDS: ACETAMINOPHEN 325 MG TABLET 650 MG GT (11:25)
[2023-08-09] MEDS: INSULIN GLARGINE 100 UNIT/ML INSULN.PEN 14 UNIT SC (17:13)
[2023-08-09] MEDS: DOXAZOSIN 2 MG TABLET 4 MG GT (20:50)
[2023-08-10] VITALS (9 sets, daily range): BP systolic 106–179; BP diastolic 67–80; PULSE 74–88; RESP 21–28; TEMP 36.1–36.8; O2SAT 96–100
[2023-08-10] MEDS: IPRATROPIUM/ALBUTEROL 3 ML AMPUL.NEB INH ×4 (00:30→18:15)
[2023-08-10] MEDS: AMLODIPINE 5 MG TABLET GT (08:30)
[2023-08-10] MEDS: SENNOSIDES 8.6 MG TABLET GT ×2 (08:31→20:33)
[2023-08-10] MEDS: FUROSEMIDE 20 MG TABLET GT (08:31)
[2023-08-10] MEDS: FAMOTIDINE 20 MG TABLET GT ×2 (08:31→20:33)
[2023-08-10] MEDS: INSULIN REGULAR, HUMAN 100 UNIT/ML VIAL SC (11:33)
[2023-08-10] MEDS: INSULIN GLARGINE 100 UNIT/ML INSULN.PEN 14 UNIT SC (17:06)
[2023-08-10] MEDS: DOXAZOSIN 2 MG TABLET 4 MG GT (20:33)
[2023-08-11] VITALS (10 sets, daily range): BP systolic 104–137; BP diastolic 64–84; PULSE 75–89; RESP 21–31; TEMP 36.1–36.6; O2SAT 96–100
[2023-08-11] MEDS: IPRATROPIUM/ALBUTEROL 3 ML AMPUL.NEB INH ×4 (00:30→18:34)
[2023-08-11] MEDS: SENNOSIDES 8.6 MG TABLET GT ×2 (09:37→20:58)
[2023-08-11] MEDS: FUROSEMIDE 20 MG TABLET GT (09:38)
[2023-08-11] MEDS: FAMOTIDINE 20 MG TABLET GT ×2 (09:38→20:57)
[2023-08-11] MEDS: AMLODIPINE 5 MG TABLET GT (09:38)
[2023-08-11] MEDS: INSULIN REGULAR, HUMAN 100 UNIT/ML VIAL SC (12:51)
[2023-08-11] MEDS: INSULIN GLARGINE 100 UNIT/ML INSULN.PEN 14 UNIT SC (18:20)
[2023-08-11] MEDS: DOXAZOSIN 2 MG TABLET 4 MG GT (20:57)
--- NOTE | 2023-08-11 22:03 | ESPR_ITS ---
Progress Note - SubAcute SUBJECTIVE Fever:: none Shortness of Breath:: none GI:: no complaints Pain:: none OBJECTIVE Most recent vital signs: Last Vital Signs Temp 97 F 08/11/23 16:49 Pulse 85 08/11/23 16:49 Resp 28 H 08/11/23 16:49 BP 125/78 08/11/23 16:49 Pulse Ox 98 08/11/23 16:49 O2 Del Method Mechanical Ventilation 08/11/23 16:49 FiO2 25 08/11/23 11:55 Neurological:: alert (responds to simple commands, shakes hands with his left) Speech:: none Answers questions:: no Respiratory:: shallow breathing Cardiovascular: RRR Abdomen: soft and nontender Extremities:: deformities Decubitus:: improved Tracheostomy:: to ventilator Feeding per:: G tube Complaints:: none ASSESSMENT & PLAN Assessment: Pt. has certainly been awake and eye tracking some, does extend his left hand when offered a hand shake Diagnosis and treatment reviewed. Ventilator settings reviewed. Weaning attempt restarted but not tolerated Plan: Current treatment as ongoing. Weaning attempts continued. Family updated
[2023-08-12] VITALS (8 sets, daily range): BP systolic 119–132; BP diastolic 68–84; PULSE 69–88; RESP 12–29; TEMP -12.7–36.3; O2SAT 96–100
[2023-08-12] MEDS: IPRATROPIUM/ALBUTEROL 3 ML AMPUL.NEB INH ×4 (01:27→18:57)
[2023-08-12] MEDS: AMLODIPINE 5 MG TABLET GT (08:31)
[2023-08-12] MEDS: SENNOSIDES 8.6 MG TABLET GT ×2 (08:32→20:42)
[2023-08-12] MEDS: FAMOTIDINE 20 MG TABLET GT ×2 (08:32→20:41)
[2023-08-12] MEDS: FUROSEMIDE 20 MG TABLET GT (08:32)
[2023-08-12] MEDS: INSULIN REGULAR, HUMAN 100 UNIT/ML VIAL SC ×2 (12:00→23:16)
[2023-08-12] MEDS: INSULIN GLARGINE 100 UNIT/ML INSULN.PEN 14 UNIT SC (18:26)
[2023-08-12] MEDS: DOXAZOSIN 2 MG TABLET 4 MG GT (20:41)
[2023-08-13] VITALS (9 sets, daily range): BP systolic 108–148; BP diastolic 72–89; PULSE 71–80; RESP 12–28; TEMP 36–36.4; O2SAT 98–100
[2023-08-13] MEDS: IPRATROPIUM/ALBUTEROL 3 ML AMPUL.NEB INH ×4 (00:49→16:50)
[2023-08-13] MEDS: INSULIN REGULAR, HUMAN 100 UNIT/ML VIAL SC (05:28)
[2023-08-13] MEDS: FUROSEMIDE 20 MG TABLET GT (08:41)
[2023-08-13] MEDS: SENNOSIDES 8.6 MG TABLET GT ×2 (08:41→20:38)
[2023-08-13] MEDS: FAMOTIDINE 20 MG TABLET GT ×2 (08:41→20:38)
[2023-08-13] MEDS: INSULIN GLARGINE 100 UNIT/ML INSULN.PEN 14 UNIT SC (17:30)
[2023-08-13] MEDS: DOXAZOSIN 2 MG TABLET 4 MG GT (20:38)
[2023-08-14] VITALS (11 sets, daily range): BP systolic 93–132; BP diastolic 52–81; PULSE 71–79; RESP 19–33; TEMP 36.2–36.6; O2SAT 97–100
[2023-08-14] MEDS: IPRATROPIUM/ALBUTEROL 3 ML AMPUL.NEB INH ×4 (00:13→18:56)
[2023-08-14] MEDS: AMLODIPINE 5 MG TABLET GT (08:38)
[2023-08-14] MEDS: FUROSEMIDE 20 MG TABLET GT (08:39)
[2023-08-14] MEDS: SENNOSIDES 8.6 MG TABLET GT ×2 (08:39→20:11)
[2023-08-14] MEDS: FAMOTIDINE 20 MG TABLET GT ×2 (08:39→20:11)
[2023-08-14] MEDS: INSULIN REGULAR, HUMAN 100 UNIT/ML VIAL SC ×2 (11:42→23:28)
[2023-08-14] MEDS: INSULIN GLARGINE 100 UNIT/ML INSULN.PEN 14 UNIT SC (17:44)
[2023-08-14] MEDS: DOXAZOSIN 2 MG TABLET 4 MG GT (20:11)
[2023-08-15] VITALS (8 sets, daily range): BP systolic 110–145; BP diastolic 68–83; PULSE 70–96; RESP 21–32; TEMP 36.3; O2SAT 96–99
[2023-08-15] MEDS: IPRATROPIUM/ALBUTEROL 3 ML AMPUL.NEB INH ×4 (00:18→18:17)
[2023-08-15] MEDS: FUROSEMIDE 20 MG TABLET GT (08:52)
[2023-08-15] MEDS: SENNOSIDES 8.6 MG TABLET GT ×2 (08:52→20:13)
[2023-08-15] MEDS: FAMOTIDINE 20 MG TABLET GT ×2 (08:52→20:12)
[2023-08-15] MEDS: AMLODIPINE 5 MG TABLET GT (08:52)
--- NOTE | 2023-08-15 11:28 | CHAP ---
Patient was visited by the Spiritual Care Volunteer who prayed for them. (Volunteer was in the hospital from 10:02-11:28).
--- NOTE | 2023-08-15 15:27 | PC.SS ---
Room visit: Resident is laying in bed with head of the bed elevated with call light properly placed with no signs of distress. Resident is well groomed, with call light in place. Resident will remain in current care as there are no changes in care or condition, staff to continue to meet all subacute care needs. Resident remains on ventilator with trach in place and GT for nutrition and medications. SSD to make daily contact with resident and monitor for any changes in mood or behavior.
[2023-08-15] MEDS: INSULIN GLARGINE 100 UNIT/ML INSULN.PEN 14 UNIT SC (17:15)
[2023-08-15] MEDS: DOXAZOSIN 2 MG TABLET 4 MG GT (20:12)
--- NOTE | 2023-08-15 22:51 | ESPR_ITS ---
Progress Note - SubAcute SUBJECTIVE Fever:: none Shortness of Breath:: none GI:: no complaints Pain:: none OBJECTIVE Most recent vital signs: Last Vital Signs Temp 97.4 F 08/15/23 18:00 Pulse 79 08/15/23 18:17 Resp 21 H 08/15/23 18:17 BP 145/83 H 08/15/23 18:00 Pulse Ox 99 08/15/23 18:17 O2 Del Method Mechanical Ventilation 08/14/23 18:00 FiO2 25 08/15/23 18:17 Neurological:: alert (responds to simple commands, shakes hands with his left) Speech:: none Answers questions:: no Respiratory:: shallow breathing Cardiovascular: RRR Abdomen: soft and nontender Extremities:: deformities Decubitus:: improved Tracheostomy:: to ventilator Feeding per:: G tube Complaints:: none ASSESSMENT & PLAN Assessment: Pt. has certainly been awake and eye tracking some, does extend his left hand when offered a hand shake Diagnosis and treatment reviewed. Ventilator settings reviewed. Weaning attempt restarted but not tolerated. All else stable, pt fully dependent for care. Plan: Current treatment as ongoing. Weaning attempts continued. Family updated
[2023-08-16] VITALS (9 sets, daily range): BP systolic 109–120; BP diastolic 68–76; PULSE 75–87; RESP 12–30; TEMP 36.1–36.8; O2SAT 97–100
[2023-08-16] MEDS: IPRATROPIUM/ALBUTEROL 3 ML AMPUL.NEB INH ×4 (00:27→18:29)
[2023-08-16] MEDS: FAMOTIDINE 20 MG TABLET GT ×2 (08:22→20:36)
[2023-08-16] MEDS: SENNOSIDES 8.6 MG TABLET GT ×2 (08:23→20:37)
[2023-08-16] MEDS: FUROSEMIDE 20 MG TABLET GT (08:23)
[2023-08-16] MEDS: INSULIN GLARGINE 100 UNIT/ML INSULN.PEN 14 UNIT SC (17:24)
[2023-08-16] MEDS: DOXAZOSIN 2 MG TABLET 4 MG GT (20:36)
[2023-08-17] VITALS (10 sets, daily range): BP systolic 99–142; BP diastolic 64–76; PULSE 71–86; RESP 12–31; TEMP 36.4–37; O2SAT 97–100
[2023-08-17] MEDS: IPRATROPIUM/ALBUTEROL 3 ML AMPUL.NEB INH ×4 (00:27→18:25)
[2023-08-17] MEDS: SENNOSIDES 8.6 MG TABLET GT ×2 (09:00→20:30)
[2023-08-17] MEDS: FUROSEMIDE 20 MG TABLET GT (09:00)
[2023-08-17] MEDS: FAMOTIDINE 20 MG TABLET GT ×2 (09:00→20:30)
[2023-08-17] MEDS: INSULIN GLARGINE 100 UNIT/ML INSULN.PEN 14 UNIT SC (17:39)
[2023-08-17] MEDS: DOXAZOSIN 2 MG TABLET 4 MG GT (20:30)
[2023-08-18] VITALS (10 sets, daily range): BP systolic 104–124; BP diastolic 63–74; PULSE 74–82; RESP 16–30; TEMP 36.2–36.6; O2SAT 97–99
[2023-08-18] MEDS: IPRATROPIUM/ALBUTEROL 3 ML AMPUL.NEB INH ×4 (00:35→19:06)
[2023-08-18] MEDS: AMLODIPINE 5 MG TABLET GT (08:32)
[2023-08-18] MEDS: SENNOSIDES 8.6 MG TABLET GT ×2 (08:33→20:47)
[2023-08-18] MEDS: FAMOTIDINE 20 MG TABLET GT ×2 (08:33→20:47)
[2023-08-18] MEDS: FUROSEMIDE 20 MG TABLET GT (08:33)
--- NOTE | 2023-08-18 17:40 | PC.NURSE ---
Updated Dr sarmiento regarding resident's blood sugar, with order received to decrease blood sugar check with sliding scale coverage to twice a day.
[2023-08-18] MEDS: INSULIN GLARGINE 100 UNIT/ML INSULN.PEN 14 UNIT SC (17:48)
[2023-08-18] MEDS: DOXAZOSIN 2 MG TABLET 4 MG GT (20:46)
[2023-08-19] VITALS (9 sets, daily range): BP systolic 109–128; BP diastolic 68–81; PULSE 70–80; RESP 18–34; TEMP 35.9–36.2; O2SAT 98–100
[2023-08-19] MEDS: IPRATROPIUM/ALBUTEROL 3 ML AMPUL.NEB INH ×4 (00:41→18:50)
[2023-08-19] MEDS: AMLODIPINE 5 MG TABLET GT (09:07)
[2023-08-19] MEDS: FUROSEMIDE 20 MG TABLET GT (09:08)
[2023-08-19] MEDS: FAMOTIDINE 20 MG TABLET GT ×2 (09:08→20:08)
[2023-08-19] MEDS: SENNOSIDES 8.6 MG TABLET GT ×2 (09:09→20:08)
[2023-08-19] MEDS: INSULIN GLARGINE 100 UNIT/ML INSULN.PEN 14 UNIT SC (17:07)
[2023-08-19] MEDS: DOXAZOSIN 2 MG TABLET 4 MG GT (20:07)
--- NOTE | 2023-08-19 22:37 | ESPR_ITS ---
Progress Note - SubAcute SUBJECTIVE Fever:: none Shortness of Breath:: none GI:: no complaints Pain:: none OBJECTIVE Most recent vital signs: Last Vital Signs Temp 96.7 F L 08/19/23 17:42 Pulse 70 08/19/23 18:50 Resp 25 H 08/19/23 18:50 BP 127/76 08/19/23 17:42 Pulse Ox 99 08/19/23 18:50 O2 Del Method Mechanical Ventilation 08/16/23 18:00 FiO2 25 08/19/23 21:45 Neurological:: alert (responds to simple commands, shakes hands with his left) Speech:: none Answers questions:: no Respiratory:: shallow breathing Cardiovascular: RRR Abdomen: soft and nontender Extremities:: deformities Decubitus:: improved Tracheostomy:: to ventilator Feeding per:: G tube Complaints:: none ASSESSMENT & PLAN Assessment: Pt. has certainly been awake and eye tracking some, does extend his left hand when offered a hand shake Diagnosis and treatment reviewed. Ventilator settings reviewed. Weaning attempt restarted but not tolerated. All else stable, pt fully dependent for care. Plan: Current treatment as ongoing. Weaning attempts continued. Family updated
[2023-08-20] VITALS (9 sets, daily range): BP systolic 106–123; BP diastolic 71–78; PULSE 68–85; RESP 24–30; TEMP 36.1–36.8; O2SAT 97–100
[2023-08-20] MEDS: IPRATROPIUM/ALBUTEROL 3 ML AMPUL.NEB INH ×4 (00:49→18:15)
[2023-08-20] MEDS: AMLODIPINE 5 MG TABLET GT (08:45)
[2023-08-20] MEDS: FAMOTIDINE 20 MG TABLET GT ×2 (08:46→20:45)
[2023-08-20] MEDS: FUROSEMIDE 20 MG TABLET GT (08:46)
[2023-08-20] MEDS: SENNOSIDES 8.6 MG TABLET GT ×2 (08:46→20:46)
[2023-08-20] MEDS: INSULIN GLARGINE 100 UNIT/ML INSULN.PEN 14 UNIT SC (18:23)
[2023-08-20] MEDS: DOXAZOSIN 2 MG TABLET 4 MG GT (20:45)
[2023-08-21] VITALS (10 sets, daily range): BP systolic 99–134; BP diastolic 65–79; PULSE 73–88; RESP 23–29; TEMP 36.3–36.9; O2SAT 98–100
[2023-08-21] MEDS: IPRATROPIUM/ALBUTEROL 3 ML AMPUL.NEB INH ×4 (00:45→19:00)
[2023-08-21 06:54] LABS: Glucose,Fasting 143 mg/dL (74-106)
[2023-08-21] MEDS: SENNOSIDES 8.6 MG TABLET GT ×2 (08:42→20:42)
[2023-08-21] MEDS: FAMOTIDINE 20 MG TABLET GT ×2 (08:43→20:42)
[2023-08-21] MEDS: FUROSEMIDE 20 MG TABLET GT (08:43)
--- NOTE | 2023-08-21 10:44 | CHAP ---
Patient was visited by the Spiritual Care Volunteer who prayed for them. (Volunteer was in the hospital from 10:12-10:44).
--- NOTE | 2023-08-21 12:02 | PC.SS ---
Room visit: Resident is laying in bed with head of the bed elevated with call light properly placed with no signs of distress. Resident remains DNR, he has trach and vent in place with GT for medications and nutrition. Resident currently has no changes in care or condition he will remain in current care and will continue to have all needs met for subacute care.
[2023-08-21] MEDS: INSULIN GLARGINE 100 UNIT/ML INSULN.PEN 14 UNIT SC (17:08)
[2023-08-21] MEDS: DOXAZOSIN 2 MG TABLET 4 MG GT (20:42)
[2023-08-22] VITALS (8 sets, daily range): BP systolic 107–124; BP diastolic 66–78; PULSE 66–81; RESP 20–28; TEMP 36.3–36.5; O2SAT 97–100
[2023-08-22] MEDS: IPRATROPIUM/ALBUTEROL 3 ML AMPUL.NEB INH ×4 (00:22→19:46)
[2023-08-22] MEDS: AMLODIPINE 5 MG TABLET GT (09:40)
[2023-08-22] MEDS: FAMOTIDINE 20 MG TABLET GT ×2 (09:41→21:32)
[2023-08-22] MEDS: SENNOSIDES 8.6 MG TABLET GT ×2 (09:41→21:32)
[2023-08-22] MEDS: FUROSEMIDE 20 MG TABLET GT (09:41)
--- NOTE | 2023-08-22 13:00 | CHAP ---
Patient was visited by the Spiritual Care Volunteer who prayed for them. (Volunteer was in hospital from 09:20-13:00)
[2023-08-22] MEDS: INSULIN GLARGINE 100 UNIT/ML INSULN.PEN 14 UNIT SC (17:08)
[2023-08-23] VITALS (9 sets, daily range): BP systolic 111–133; BP diastolic 71–76; PULSE 69–81; RESP 19–28; TEMP 36.2–36.8; O2SAT 97–100
[2023-08-23] MEDS: IPRATROPIUM/ALBUTEROL 3 ML AMPUL.NEB INH ×4 (00:29→18:07)
[2023-08-23] MEDS: AMLODIPINE 5 MG TABLET GT (08:10)
[2023-08-23] MEDS: FUROSEMIDE 20 MG TABLET GT (08:10)
[2023-08-23] MEDS: FAMOTIDINE 20 MG TABLET GT ×2 (08:10→20:31)
[2023-08-23] MEDS: SENNOSIDES 8.6 MG TABLET GT ×2 (08:10→20:31)
[2023-08-23] MEDS: INSULIN GLARGINE 100 UNIT/ML INSULN.PEN 14 UNIT SC (16:59)
[2023-08-23] MEDS: DOXAZOSIN 2 MG TABLET 4 MG GT (20:31)
--- NOTE | 2023-08-23 22:37 | ESPR_ITS ---
Progress Note - SubAcute SUBJECTIVE Fever:: none Shortness of Breath:: none GI:: no complaints Pain:: none OBJECTIVE Most recent vital signs: Last Vital Signs Temp 98.3 F 08/23/23 17:43 Pulse 74 08/23/23 18:07 Resp 21 H 08/23/23 18:07 BP 119/72 08/23/23 17:43 Pulse Ox 99 08/23/23 18:07 O2 Del Method Mechanical Ventilation 08/23/23 06:00 FiO2 25 08/23/23 22:00 Neurological:: alert (responds to simple commands, shakes hands with his left) Speech:: none Answers questions:: no Respiratory:: shallow breathing Cardiovascular: RRR Abdomen: soft and nontender Extremities:: deformities Decubitus:: improved Tracheostomy:: to ventilator Feeding per:: G tube Complaints:: none ASSESSMENT & PLAN Assessment: Pt. has certainly been awake and eye tracking some, does extend his left hand when offered a hand shake Diagnosis and treatment reviewed. Ventilator settings reviewed. Weaning attempt restarted but not tolerated. All else stable, pt fully dependent for care. Plan: Current treatment as ongoing. Weaning attempts continued. Family updated
[2023-08-24] VITALS (9 sets, daily range): BP systolic 102–128; BP diastolic 63–81; PULSE 71–81; RESP 20–27; TEMP 36.2–36.9; O2SAT 98–100
[2023-08-24] MEDS: IPRATROPIUM/ALBUTEROL 3 ML AMPUL.NEB INH ×4 (00:11→17:32)
[2023-08-24] MEDS: FAMOTIDINE 20 MG TABLET GT ×2 (08:40→20:16)
[2023-08-24] MEDS: FUROSEMIDE 20 MG TABLET GT (08:40)
[2023-08-24] MEDS: SENNOSIDES 8.6 MG TABLET GT ×2 (08:40→20:16)
[2023-08-24] MEDS: INSULIN GLARGINE 100 UNIT/ML INSULN.PEN 14 UNIT SC (17:12)
[2023-08-24] MEDS: DOXAZOSIN 2 MG TABLET 4 MG GT (20:16)
[2023-08-25] VITALS (11 sets, daily range): BP systolic 98–134; BP diastolic 61–79; PULSE 62–81; RESP 19–30; TEMP 36–36.7; O2SAT 97–100
[2023-08-25] MEDS: IPRATROPIUM/ALBUTEROL 3 ML AMPUL.NEB INH ×4 (01:01→16:20)
[2023-08-25] MEDS: FUROSEMIDE 20 MG TABLET GT (08:35)
[2023-08-25] MEDS: FAMOTIDINE 20 MG TABLET GT ×2 (08:35→20:49)
[2023-08-25] MEDS: SENNOSIDES 8.6 MG TABLET GT ×2 (08:35→20:49)
[2023-08-25] MEDS: INSULIN GLARGINE 100 UNIT/ML INSULN.PEN 14 UNIT SC (17:13)
[2023-08-25] MEDS: INSULIN REGULAR, HUMAN 100 UNIT/ML VIAL SC (17:13)
[2023-08-25] MEDS: DOXAZOSIN 2 MG TABLET 4 MG GT (20:49)
[2023-08-26] VITALS (9 sets, daily range): BP systolic 95–124; BP diastolic 66–75; PULSE 67–87; RESP 20–28; TEMP 36.3–36.8; O2SAT 98–100
[2023-08-26] MEDS: IPRATROPIUM/ALBUTEROL 3 ML AMPUL.NEB INH ×4 (01:27→16:10)
[2023-08-26] MEDS: FAMOTIDINE 20 MG TABLET GT ×2 (08:53→20:50)
[2023-08-26] MEDS: SENNOSIDES 8.6 MG TABLET GT ×2 (08:53→20:50)
[2023-08-26] MEDS: FUROSEMIDE 20 MG TABLET GT (08:53)
[2023-08-26] MEDS: INSULIN GLARGINE 100 UNIT/ML INSULN.PEN 14 UNIT SC (17:06)
[2023-08-26] MEDS: DOXAZOSIN 2 MG TABLET 4 MG GT (20:50)
[2023-08-27] VITALS (8 sets, daily range): BP systolic 106–135; BP diastolic 63–70; PULSE 69–88; RESP 15–26; TEMP 36.1–36.3; O2SAT 98–100
[2023-08-27] MEDS: IPRATROPIUM/ALBUTEROL 3 ML AMPUL.NEB INH ×4 (01:09→19:48)
[2023-08-27] MEDS: AMLODIPINE 5 MG TABLET GT (08:59)
[2023-08-27] MEDS: FUROSEMIDE 20 MG TABLET GT (09:00)
[2023-08-27] MEDS: FAMOTIDINE 20 MG TABLET GT ×2 (09:00→21:05)
[2023-08-27] MEDS: SENNOSIDES 8.6 MG TABLET GT ×2 (09:00→21:05)
[2023-08-27] MEDS: INSULIN GLARGINE 100 UNIT/ML INSULN.PEN 14 UNIT SC (17:14)
[2023-08-27] MEDS: DOXAZOSIN 2 MG TABLET 4 MG GT (21:05)
--- NOTE | 2023-08-27 21:17 | ESPR_ITS ---
Progress Note - SubAcute SUBJECTIVE Fever:: none Shortness of Breath:: none GI:: no complaints Pain:: none OBJECTIVE Most recent vital signs: Last Vital Signs Temp 97.2 F 08/27/23 18:00 Pulse 88 08/27/23 19:48 Resp 26 H 08/27/23 19:48 BP 135/70 H 08/27/23 18:00 Pulse Ox 98 08/27/23 19:48 O2 Del Method Mechanical Ventilation 08/25/23 06:00 FiO2 25 08/27/23 19:48 Neurological:: alert (responds to simple commands, shakes hands with his left) Speech:: none Answers questions:: no Respiratory:: shallow breathing Cardiovascular: RRR Abdomen: soft and nontender Extremities:: deformities Decubitus:: improved Tracheostomy:: to ventilator Feeding per:: G tube Complaints:: none ASSESSMENT & PLAN Assessment: Pt. has certainly been awake and eye tracking some, does extend his left hand when offered a hand shake Diagnosis and treatment reviewed. Ventilator settings reviewed. Weaning attempt restarted but not tolerated. All else stable, pt fully dependent for care. I had a detailed conversation with pt's about his status and prognostic outlooks and explained in detail all her questions to which she was thankful even though more saddened by the reality of his condition and unpromising expectations. Plan: Current treatment as ongoing. Weaning attempts continued. Family updated
[2023-08-28] VITALS (9 sets, daily range): BP systolic 108–127; BP diastolic 66–75; PULSE 69–81; RESP 19–25; TEMP 36.2–36.6; O2SAT 97–100
[2023-08-28] MEDS: IPRATROPIUM/ALBUTEROL 3 ML AMPUL.NEB INH ×4 (00:17→16:15)
[2023-08-28] MEDS: AMLODIPINE 5 MG TABLET GT (09:29)
[2023-08-28] MEDS: FUROSEMIDE 20 MG TABLET GT (09:30)
[2023-08-28] MEDS: SENNOSIDES 8.6 MG TABLET GT ×2 (09:30→20:23)
[2023-08-28] MEDS: FAMOTIDINE 20 MG TABLET GT ×2 (09:30→20:23)
--- NOTE | 2023-08-28 13:54 | CHAP ---
10:30 AM Visited by spiritual care volunteer Provided prayer for Patient.
[2023-08-28] MEDS: INSULIN GLARGINE 100 UNIT/ML INSULN.PEN 14 UNIT SC (17:37)
[2023-08-28] MEDS: CARBAMIDE PEROXIDE OTIC SOL 15 ML BTL 5 DROP BOTH EARS (20:22)
[2023-08-28] MEDS: DOXAZOSIN 2 MG TABLET 4 MG GT (20:23)
[2023-08-29] VITALS (9 sets, daily range): BP systolic 102–156; BP diastolic 65–80; PULSE 71–77; RESP 14–23; TEMP 36.1–36.6; O2SAT 97–100
[2023-08-29] MEDS: IPRATROPIUM/ALBUTEROL 3 ML AMPUL.NEB INH ×4 (01:05→16:30)
[2023-08-29] MEDS: AMLODIPINE 5 MG TABLET GT (09:40)
[2023-08-29] MEDS: SENNOSIDES 8.6 MG TABLET GT ×2 (09:40→21:15)
[2023-08-29] MEDS: FAMOTIDINE 20 MG TABLET GT ×2 (09:45→21:15)
[2023-08-29] MEDS: FUROSEMIDE 20 MG TABLET GT (09:45)
[2023-08-29] MEDS: CARBAMIDE PEROXIDE OTIC SOL 15 ML BTL 5 DROP BOTH EARS ×2 (10:45→21:14)
--- NOTE | 2023-08-29 11:41 | PC.NURSE ---
Nurse Bailey reported resident having emesis x3. residual of 100ml. Held tube feeding as per protocol and Dr. garza. Resident vital signs remain within normal range. Zofran was given. resident remains afebrile. Will continue to monitor.
--- NOTE | 2023-08-29 13:04 | PC.NURSE ---
Addendum entered by Jaimie Gao RN 08/29/23 13:10: additional note. no GI bleed noted through this shift. Original Note: Notified MD RE: resident emesis x3. Order to continue to hold TF. and increase gt fluids.
--- NOTE | 2023-08-29 13:35 | CHAP ---
Patient was visited by the Spiritual Care Volunteer who prayed for them. (Volunteer was in the hospital from 11:30 -1:35).
--- NOTE | 2023-08-29 14:58 | PC.SS ---
Room visit: Resident is laying in bed with head of the bed elevated with call light properly laced. Resident remains on ventilator with trach and GT in place for medication and nutrition. Resident has no changes in care or condition, resident will remain in current care. Resident will continue to have all needs met for subacute care. SSD will make daily contact with resident and will monitor for changes in care or condition.
[2023-08-29] MEDS: INSULIN GLARGINE 100 UNIT/ML INSULN.PEN 14 UNIT SC (18:05)
[2023-08-29] MEDS: DOXAZOSIN 2 MG TABLET 4 MG GT (21:14)
[2023-08-30] VITALS (8 sets, daily range): BP systolic 94–98; BP diastolic 58–63; PULSE 74–99; RESP 22–31; TEMP 36.6–39.2; O2SAT 97–99
[2023-08-30] MEDS: IPRATROPIUM/ALBUTEROL 3 ML AMPUL.NEB INH ×4 (00:30→16:45)
[2023-08-30] MEDS: ACETAMINOPHEN 325 MG TABLET GT ×2 (05:00→20:22)
--- NOTE | 2023-08-30 05:30 | PC.NURSE ---
RESIDENT WITH TEMPORAL TEMP OF 101.5, COOLING MEASURES INITIATED @ 0400. RESIDENT NO COMPLAINT OF DISCOMFORT, AWAKE. RESIDENT TEMP RECHECKED RECTALLY @ 0500, 102.5 THEN GIVEN TYLENOL ORDERED. RESIDENT RR 31 O2 SAT 97%, NO COMPLAINT OF DISCOMFORT AT THIS TIME. CONTINUE COOLING MEASURES
[2023-08-30 05:44] LABS: Collection Type, Urine Catheter
[2023-08-30 05:46] LABS: Bacteria,Urine 3+; Bilirubin,Urine Negative (Negative); Blood,Urine 1+ (Negative); Color,Urine Yellow (Lt Yel-Yel); Glucose, Urine Negative (Negative); Ketones,Urine Negative (Negative); Leukocyte Esterase,Urine Positive (Negative); Nitrite,Urine Negative (Negative); Protein,Urine Trace (Neg - Trace); RBC,Urine 7 /hpf (0-3); Specific Gravity,Urine 1.017 (1.001-1.035); Squamous Epithelial Cell,Urine 3 /hpf (0-5); Urobilinogen,Urine Negative mg/dL (0.0-1.0); WBC,Urine 436 /hpf (0-5)
[2023-08-30 05:47] LABS: Clarity,Urine Turbid (Clear/Hazy)
[2023-08-30] MEDS: INSULIN REGULAR, HUMAN 100 UNIT/ML VIAL SC (05:50)
--- NOTE | 2023-08-30 06:00 | PC.NURSE ---
RESIDENT RECTAL TEMP AT THIS TIME 101. RESIDENT AWAKE, NO COMPLAINT OF DISCOMFORT. RR 28 AT THIS TIME, O2 SAT 97%. CONTINUE COOLING MEASURES.
--- NOTE | 2023-08-30 06:05 | PC.NURSE ---
Resident with x2 elevated temps- fever protocol initiated, urine, sputum, flu and covid samples sent to lab
[2023-08-30 06:21] LABS: Basophils # (Auto) 0.1 Thou/mm3 (0.0-0.2); Basophils % (Auto) 0 % (0-2.5); Eosinophils % (Auto) 0 % (0-10); Hematocrit 31.4 % (41.0-53.0); Hemoglobin 10.5 g/dL (13.5-16.0); Immature Granulocytes % (Auto) 1 % (0-0); Immature Granulocytes Auto 0.11 Thou/mm3 (0.00-0.00); Lymphocytes # (Auto) 1.1 Thou/mm3 (1.0-4.8); Lymphocytes % (Auto) 5 % (10-50); Mean Corpuscular HGB Conc 33.4 g/dl (31.0-37.0); Mean Corpuscular Hemoglobin 28.5 pg (25.0-35.0); Mean Corpuscular Volume 85 fL (80-100); Monocytes # (Auto) 1.1 Thou/mm3 (0.0-0.8); Monocytes % (Auto) 5 % (0-12); Neutrophils % (Auto) 89 % (37-80); Nucleated Red Blood Cell % 0 /100 WBC (0); Platelet Count 383 Thou/mm3 (140-440); RDW Standard Deviation 43.1 fL (35.1-43.9); Red Blood Count 3.68 Miln/mm3 (4.50-5.90); White Blood Count 22.5 Thou/mm3 (3.8-10.6)
[2023-08-30 06:57] LABS: Procalcitonin 0.36 ng/ml (0.0-0.49)
[2023-08-30 07:06] LABS: COVID-19 Antigen (In-House) Negative (Negative); Influenza A Ag Negative; Influenza B Ag Negative
--- NOTE | 2023-08-30 09:02 | XR_ITS ---
Examination: AP upright chest single view Technique: AP upright chest single view Exam date and time: 27/08/2023 0932 hrs. Indications: Respiratory distress today. Findings: Early diffuse pneumonia right lung Mild prominence left ventricle Left lung clear Tracheostomy tube tip satisfactory position Impression: Early diffuse right lung pneumonia
--- NOTE | 2023-08-30 09:29 | PC.NURSE ---
Called Dr Diaz today verbally reported resident's lab results with order received to start on Rocephin 2 gm IV daily. Antibiotic in our [facility] comes only in Rocephin 1 gram . Called [facility] pharmacist and spoke with Kaylah and he said we could do back to back infusion ( 1 gm to run for an hour then give the other dose again after then run for another hour) Called Dr Diaz and made aware of it and agreed. Order received from Dr diaz to do chest x-ray to check for any aspiration due to episodes of emesis yesterday. V/S taken as follows: 99/60, 84, 25, 99.9. Resident remains alert and awake, denies and pain or discomfort.
[2023-08-30] MEDS: CEFTRIAXONE 1 GM VIAL.PORT 2 GM IVP (09:30)
[2023-08-30] MEDS: FUROSEMIDE 20 MG TABLET GT (10:09)
[2023-08-30] MEDS: SENNOSIDES 8.6 MG TABLET GT ×2 (10:09→20:21)
[2023-08-30] MEDS: CARBAMIDE PEROXIDE OTIC SOL 15 ML BTL 5 DROP BOTH EARS ×2 (10:09→20:19)
[2023-08-30] MEDS: FAMOTIDINE 20 MG TABLET GT ×2 (10:09→20:21)
--- NOTE | 2023-08-30 10:12 | PC.NURSE ---
Called resident's gave updates and the new orders and appreciate much the call.
--- NOTE | 2023-08-30 15:13 | PC.NURSE ---
Chest xray was done this morning , no results noted in the [facility] yet. Tried to call Radiology several times with all those extension numbers but no one is answering it.
--- NOTE | 2023-08-30 16:45 | PC.NURSE ---
Able to get hold of radiology and made a follow up about resident's chest x-ray result not available at this time yet, as per radiology they already contacted MD for it. Awaiting for the result
[2023-08-30] MEDS: INSULIN GLARGINE 100 UNIT/ML INSULN.PEN 14 UNIT SC (17:00)
--- NOTE | 2023-08-30 18:24 | PC.OT ---
No adverse reaction noted from Rocephin. Remains on mechanical ventilator. No s/s of respiratory distress noted. Denies any pain or discomfort. GT feeding tolerated well. No emesis noted. Abdomen soft and non-tender.
[2023-08-30] MEDS: DOXAZOSIN 2 MG TABLET 4 MG GT (20:20)
--- NOTE | 2023-08-30 23:34 | PC.NURSE ---
Resident is currently taking Rocephin 2gm IV daily for elevated temp., 22G IV to right FA, IV patent and intact, no s/s of infiltration, resident is afebrile, chest x-ray report pending, resident in room resting, call light within reach, no s/s of distress at this time.
[2023-08-31] VITALS (9 sets, daily range): BP systolic 98–144; BP diastolic 54–84; PULSE 55–89; RESP 22–29; TEMP 36.2–36.7; O2SAT 97–99
[2023-08-31] MEDS: IPRATROPIUM/ALBUTEROL 3 ML AMPUL.NEB INH ×4 (01:27→18:40)
[2023-08-31] MEDS: CEFTRIAXONE 1 GM VIAL.PORT 2 GM IV (08:30)
[2023-08-31] MEDS: AMLODIPINE 5 MG TABLET GT (09:56)
[2023-08-31] MEDS: SENNOSIDES 8.6 MG TABLET GT ×2 (09:57→20:26)
[2023-08-31] MEDS: FAMOTIDINE 20 MG TABLET GT ×2 (09:57→20:26)
[2023-08-31] MEDS: FUROSEMIDE 20 MG TABLET GT (09:57)
[2023-08-31] MEDS: CARBAMIDE PEROXIDE OTIC SOL 15 ML BTL 5 DROP BOTH EARS ×2 (09:59→20:26)
--- NOTE | 2023-08-31 10:31 | PC.NURSE ---
Called radiology today and made aware that Chest x-ray result not yet available in the [facility]
--- NOTE | 2023-08-31 13:31 | PC.NURSE ---
Remains afebrile at this time. Remains on Rocephin 2 gm IV daily for UTI. No adverse reaction noted. GT feeding tolerated well. No N/V noted. Denies any pain or discomfort . On mechanical ventilator, no s/s of respiratory distress noted. Abdomen soft and non tender.
--- NOTE | 2023-08-31 14:42 | PC.NURSE ---
Chest X-ray result, early diffuse right lung PNA. Currently Rocephin for UTI, no adverse reaction noted. Remains afebrile at this time. Called Dr Diaz and and verbally reported result, no new orders made
[2023-08-31] MEDS: INSULIN GLARGINE 100 UNIT/ML INSULN.PEN 14 UNIT SC (17:23)
--- NOTE | 2023-08-31 18:20 | ESPR_ITS ---
Progress Note - SubAcute SUBJECTIVE Fever:: none Shortness of Breath:: none GI:: no complaints Pain:: none OBJECTIVE Most recent vital signs: Last Vital Signs Temp 97.0 F 09/02/23 00:00 Pulse 81 09/02/23 00:30 Resp 24 H 09/02/23 00:30 BP 119/70 09/02/23 00:00 Pulse Ox 99 09/02/23 00:30 O2 Del Method Mechanical Ventilation 09/01/23 17:54 FiO2 25 09/02/23 00:30 Neurological:: alert (responds to simple commands, shakes hands with his left) Speech:: none Answers questions:: no Respiratory:: shallow breathing Cardiovascular: RRR Abdomen: soft and nontender Extremities:: deformities Decubitus:: improved Tracheostomy:: to ventilator Feeding per:: G tube Complaints:: none ASSESSMENT & PLAN Assessment: Pt. has certainly been awake and eye tracking some, does extend his left hand when offered a hand shake Diagnosis and treatment reviewed. Ventilator settings reviewed. Weaning attempt restarted but not tolerated. All else stable, pt fully dependent for care. I had a detailed conversation with pt's about his status and prognostic outlooks and explained in detail all her questions to which she was thankful even though more saddened by the reality of his condition and unpromising expectations. Plan: Current treatment as ongoing. Weaning attempts continued. Family updated
[2023-08-31] MEDS: ACETAMINOPHEN 325 MG TABLET GT (20:25)
[2023-08-31] MEDS: DOXAZOSIN 2 MG TABLET 4 MG GT (20:26)
[2023-09-01] VITALS (8 sets, daily range): BP systolic 96–125; BP diastolic 54–73; PULSE 66–86; RESP 22–28; TEMP 35.9–36.5; O2SAT 97–100
[2023-09-01] MEDS: IPRATROPIUM/ALBUTEROL 3 ML AMPUL.NEB INH ×4 (00:50→18:25)
[2023-09-01 06:03] LABS: Basophils % (Auto) 0 % (0-2.5); Eosinophils # (Auto) 0.3 Thou/mm3 (0.0-0.5); Eosinophils % (Auto) 2 % (0-10); Hemoglobin 10.2 g/dL (13.5-16.0); Immature Granulocytes % (Auto) 0 % (0-0); Immature Granulocytes Auto 0.05 Thou/mm3 (0.00-0.00); Lymphocytes % (Auto) 8 % (10-50); Mean Corpuscular HGB Conc 31.9 g/dl (31.0-37.0); Mean Corpuscular Volume 88 fL (80-100); Monocytes # (Auto) 1.1 Thou/mm3 (0.0-0.8); Monocytes % (Auto) 9 % (0-12); Neutrophils % (Auto) 81 % (37-80); Nucleated Red Blood Cell % 0 /100 WBC (0); Platelet Count 365 Thou/mm3 (140-440); RDW Standard Deviation 44.6 fL (35.1-43.9); Red Blood Count 3.64 Miln/mm3 (4.50-5.90); White Blood Count 12.5 Thou/mm3 (3.8-10.6)
[2023-09-01] MEDS: CEFTRIAXONE 1 GM VIAL.PORT 2 GM IV (09:00)
[2023-09-01] MEDS: FAMOTIDINE 20 MG TABLET GT ×2 (09:45→20:09)
[2023-09-01] MEDS: AMLODIPINE 5 MG TABLET GT (09:45)
[2023-09-01] MEDS: SENNOSIDES 8.6 MG TABLET GT ×2 (09:46→20:09)
[2023-09-01] MEDS: FUROSEMIDE 20 MG TABLET GT (09:46)
[2023-09-01] MEDS: INSULIN GLARGINE 100 UNIT/ML INSULN.PEN 14 UNIT SC (18:17)
[2023-09-01] MEDS: DOXAZOSIN 2 MG TABLET 4 MG GT (20:09)
[2023-09-02] VITALS (9 sets, daily range): BP systolic 108–199; BP diastolic 61–75; PULSE 72–89; RESP 20–28; TEMP 35.9–36.2; O2SAT 97–99
[2023-09-02] MEDS: IPRATROPIUM/ALBUTEROL 3 ML AMPUL.NEB INH ×4 (00:30→18:41)
--- NOTE | 2023-09-02 04:25 | PC.NURSE ---
Resident remains on IV antibiotics Rocephin for UTI, no side effects noted, IV remains patent, call light is within reach
--- NOTE | 2023-09-02 08:39 | CHAP ---
Patient was visited by a [facility] Spiritual Care Volunteer on 08/31/2023 between 1432 and 1512 and received comfort, encouragement and/or prayer.
[2023-09-02] MEDS: AMLODIPINE 5 MG TABLET GT (09:14)
[2023-09-02] MEDS: FUROSEMIDE 20 MG TABLET GT (09:15)
[2023-09-02] MEDS: FAMOTIDINE 20 MG TABLET GT ×2 (09:15→20:23)
[2023-09-02] MEDS: CEFTRIAXONE 1 GM VIAL.PORT 2 GM IV (09:15)
[2023-09-02] MEDS: SENNOSIDES 8.6 MG TABLET GT ×2 (09:16→20:24)
--- NOTE | 2023-09-02 15:43 | PC.NURSE ---
Resident did not attend activities d/t contact precautions.
[2023-09-02] MEDS: INSULIN GLARGINE 100 UNIT/ML INSULN.PEN 14 UNIT SC (17:11)
[2023-09-02] MEDS: DOXAZOSIN 2 MG TABLET 4 MG GT (20:23)
[2023-09-03] VITALS (9 sets, daily range): BP systolic 109–141; BP diastolic 71–78; PULSE 68–82; RESP 23–26; TEMP 36.1–36.8; O2SAT 98–100
[2023-09-03] MEDS: IPRATROPIUM/ALBUTEROL 3 ML AMPUL.NEB INH ×4 (00:53→18:15)
--- NOTE | 2023-09-03 05:53 | PC.NURSE ---
Resident remains on IV antibiotics Rocephin for E-Coli in urine and P.Mirabilis in sputum, no side effects noted, IV to right hand remains patent, call light is within reach.
[2023-09-03] MEDS: CEFTRIAXONE 1 GM VIAL.PORT 2 GM IV (08:55)
[2023-09-03] MEDS: FAMOTIDINE 20 MG TABLET GT ×2 (09:27→20:32)
[2023-09-03] MEDS: SENNOSIDES 8.6 MG TABLET GT ×2 (09:28→20:32)
[2023-09-03] MEDS: FUROSEMIDE 20 MG TABLET GT (09:28)
--- NOTE | 2023-09-03 13:06 | PC.NURSE ---
Called Dr Diaz and verbally reported resident's urine C & S result, with order received to start on Augmentin 500 mg BID for ESBL in urine and he said to complete the Rocephin for 7 days
--- NOTE | 2023-09-03 13:11 | PC.NURSE ---
Called resident's and updated her about the new order and appreciate the call
[2023-09-03] MEDS: AMOXICILLIN/POTASSIUM CLAV 1 EACH TABLET 500 EACH GT (14:50)
[2023-09-03] MEDS: INSULIN GLARGINE 100 UNIT/ML INSULN.PEN 14 UNIT SC (17:12)
[2023-09-03] MEDS: DOXAZOSIN 2 MG TABLET 4 MG GT (20:32)
[2023-09-04] VITALS (10 sets, daily range): BP systolic 103–134; BP diastolic 65–76; PULSE 74–86; RESP 23–27; TEMP 36.1–36.6; O2SAT 97–99
[2023-09-04] MEDS: IPRATROPIUM/ALBUTEROL 3 ML AMPUL.NEB INH ×4 (00:40→16:52)
[2023-09-04] MEDS: AMOXICILLIN/POTASSIUM CLAV 1 EACH TABLET 500 EACH GT ×2 (02:11→14:14)
[2023-09-04] MEDS: CEFTRIAXONE 1 GM VIAL.PORT 2 GM IV (08:48)
[2023-09-04] MEDS: AMLODIPINE 5 MG TABLET GT (08:56)
[2023-09-04] MEDS: FAMOTIDINE 20 MG TABLET GT ×2 (08:56→20:19)
[2023-09-04] MEDS: FUROSEMIDE 20 MG TABLET GT (08:56)
[2023-09-04] MEDS: SENNOSIDES 8.6 MG TABLET GT ×2 (08:57→20:19)
--- NOTE | 2023-09-04 10:21 | PC.NURSE ---
Condition remains stable at this time, no adverse reaction noted from Rocephin IV for PNA and Augmentin for ESBL in urine. Respiration even and unlabored. No s/s of pain or discomfort. GT feeding tolerated well. Abdomen soft and non tender.
[2023-09-04] MEDS: INSULIN GLARGINE 100 UNIT/ML INSULN.PEN 14 UNIT SC (17:25)
[2023-09-04] MEDS: DOXAZOSIN 2 MG TABLET 4 MG GT (20:18)
--- NOTE | 2023-09-04 22:53 | ESPR_ITS ---
Progress Note - SubAcute SUBJECTIVE Fever:: none Shortness of Breath:: none GI:: no complaints Pain:: none OBJECTIVE Most recent vital signs: Last Vital Signs Temp 97.9 F 09/04/23 17:45 Pulse 83 09/04/23 17:45 Resp 25 H 09/04/23 17:45 BP 133/73 H 09/04/23 17:45 Pulse Ox 99 09/04/23 17:45 O2 Del Method Mechanical Ventilation 09/04/23 05:57 FiO2 25 09/04/23 21:28 Neurological:: alert (responds to simple commands, shakes hands with his left) Speech:: none Answers questions:: no Respiratory:: shallow breathing Cardiovascular: RRR Abdomen: soft and nontender Extremities:: deformities Decubitus:: improved Tracheostomy:: to ventilator Feeding per:: G tube Complaints:: none ASSESSMENT & PLAN Assessment: Pt. has certainly been awake and eye tracking some, does extend his left hand when offered a hand shake Diagnosis and treatment reviewed. Ventilator settings reviewed. Weaning attempt restarted but not tolerated. All else stable, pt fully dependent for care. I had a detailed conversation with pt's about his status and prognostic outlooks and explained in detail all her questions to which she was thankful even though more saddened by the reality of his condition and unpromising expectations. Plan: Current treatment as ongoing. Weaning attempts continued. Family updated
[2023-09-05] VITALS (9 sets, daily range): BP systolic 105–132; BP diastolic 65–78; PULSE 74–86; RESP 22–28; TEMP 36.3–36.8; O2SAT 95–99
[2023-09-05] MEDS: IPRATROPIUM/ALBUTEROL 3 ML AMPUL.NEB INH ×4 (01:50→17:55)
[2023-09-05] MEDS: AMOXICILLIN/POTASSIUM CLAV 1 EACH TABLET 500 EACH GT ×2 (02:00→14:30)
--- NOTE | 2023-09-05 06:24 | PC.NURSE ---
Resident continues with rocephine 2grams daily IV for elevated temp., resident is afebrile, no adverse reactions or side effects noted, resident in room resting, call light within reach, no s/s of distress at this time.
[2023-09-05] MEDS: CEFTRIAXONE 1 GM VIAL.PORT 2 GM IV (08:25)
[2023-09-05] MEDS: FAMOTIDINE 20 MG TABLET GT ×2 (09:32→20:43)
[2023-09-05] MEDS: AMLODIPINE 5 MG TABLET GT (09:32)
[2023-09-05] MEDS: SENNOSIDES 8.6 MG TABLET GT ×2 (09:33→20:43)
[2023-09-05] MEDS: FUROSEMIDE 20 MG TABLET GT (09:33)
--- NOTE | 2023-09-05 10:10 | PC.NURSE ---
Rocephin 2 gm IV started on 08/30/23 for 7 days. Last dose was given this morning, no adverse reaction noted. Remains awake, alert and responsive. Respiration even and unlabored. Denies any pain or discomfort. Afebrile. Remains on Augmentin PGT as ordered for ESBL in urine, no adverse reaction noted.
[2023-09-05] MEDS: INSULIN GLARGINE 100 UNIT/ML INSULN.PEN 14 UNIT SC (17:00)
[2023-09-05] MEDS: DOXAZOSIN 2 MG TABLET 4 MG GT (20:43)
[2023-09-06] VITALS (8 sets, daily range): BP systolic 94–114; BP diastolic 63–71; PULSE 76–94; RESP 22–38; TEMP 36.2–36.5; O2SAT 95–98
[2023-09-06] MEDS: IPRATROPIUM/ALBUTEROL 3 ML AMPUL.NEB INH ×4 (01:10→16:30)
[2023-09-06] MEDS: AMOXICILLIN/POTASSIUM CLAV 1 EACH TABLET 500 EACH GT ×2 (02:23→13:57)
[2023-09-06] MEDS: SENNOSIDES 8.6 MG TABLET GT ×2 (08:20→20:32)
[2023-09-06] MEDS: FAMOTIDINE 20 MG TABLET GT ×2 (08:20→20:32)
[2023-09-06] MEDS: FUROSEMIDE 20 MG TABLET GT (08:20)
--- NOTE | 2023-09-06 15:48 | PC.NURSE ---
Resident is awake and making needs known. Resident remains on Augmentin PGT as ordered for ESBL in urine, no adverse reactions or side effects noted. Fluids given adequate via G-tube, call light in place resident is Afebril no c/o of pain. Plan of care ongoing.
[2023-09-06] MEDS: INSULIN GLARGINE 100 UNIT/ML INSULN.PEN 14 UNIT SC (17:04)
[2023-09-06] MEDS: INSULIN REGULAR, HUMAN 100 UNIT/ML VIAL SC (17:04)
[2023-09-06] MEDS: DOXAZOSIN 2 MG TABLET 4 MG GT (20:31)
--- NOTE | 2023-09-06 20:56 | ESPR_ITS ---
Progress Note - SubAcute SUBJECTIVE Fever:: none Shortness of Breath:: none GI:: no complaints Pain:: none OBJECTIVE Most recent vital signs: Last Vital Signs Temp 97.7 F 09/06/23 17:52 Pulse 94 09/06/23 17:52 Resp 38 H 09/06/23 17:52 BP 114/71 09/06/23 17:52 Pulse Ox 98 09/06/23 17:52 O2 Del Method Mechanical Ventilation 09/06/23 17:52 FiO2 25 09/06/23 16:30 Neurological:: alert (responds to simple commands, shakes hands with his left) Speech:: none Answers questions:: no Respiratory:: shallow breathing Cardiovascular: RRR Abdomen: soft and nontender Extremities:: deformities Decubitus:: improved Tracheostomy:: to ventilator Feeding per:: G tube Complaints:: none ASSESSMENT & PLAN Assessment: Pt. has certainly been awake and eye tracking some, does extend his left hand when offered a hand shake Diagnosis and treatment reviewed. Ventilator settings reviewed. Weaning attempt restarted but not tolerated. All else stable, pt fully dependent for care. I had a detailed conversation with pt's about his status and prognostic outlooks and explained in detail all her questions to which she was thankful even though more saddened by the reality of his condition and unpromising expectations. No new issues Plan: Current treatment as ongoing. Weaning attempts continued. Family updated
[2023-09-07] VITALS (9 sets, daily range): BP systolic 90–121; BP diastolic 60–72; PULSE 61–90; RESP 24–38; TEMP 36.2–37; O2SAT 96–100
[2023-09-07] MEDS: IPRATROPIUM/ALBUTEROL 3 ML AMPUL.NEB INH ×4 (00:30→18:40)
[2023-09-07] MEDS: AMOXICILLIN/POTASSIUM CLAV 1 EACH TABLET 500 EACH GT ×2 (02:45→14:30)
[2023-09-07] MEDS: AMLODIPINE 5 MG TABLET GT (09:12)
[2023-09-07] MEDS: SENNOSIDES 8.6 MG TABLET GT ×2 (09:13→20:24)
[2023-09-07] MEDS: FAMOTIDINE 20 MG TABLET GT ×2 (09:13→20:24)
[2023-09-07] MEDS: FUROSEMIDE 20 MG TABLET GT (09:13)
[2023-09-07] MEDS: INSULIN GLARGINE 100 UNIT/ML INSULN.PEN 14 UNIT SC (17:34)
[2023-09-07] MEDS: DOXAZOSIN 2 MG TABLET 4 MG GT (20:23)
[2023-09-08] VITALS (9 sets, daily range): BP systolic 104–153; BP diastolic 63–77; PULSE 70–81; RESP 16–28; TEMP 36.1–36.6; O2SAT 97–100
[2023-09-08] MEDS: AMOXICILLIN/POTASSIUM CLAV 1 EACH TABLET 500 EACH GT ×2 (01:58→13:30)
[2023-09-08] MEDS: IPRATROPIUM/ALBUTEROL 3 ML AMPUL.NEB INH ×4 (04:35→19:37)
[2023-09-08 07:51] LABS: Basophils # (Auto) 0.1 Thou/mm3 (0.0-0.2); Basophils % (Auto) 1 % (0-2.5); Eosinophils # (Auto) 0.2 Thou/mm3 (0.0-0.5); Eosinophils % (Auto) 2 % (0-10); Hematocrit 31.4 % (41.0-53.0); Hemoglobin 10.2 g/dL (13.5-16.0); Immature Granulocytes % (Auto) 1 % (0-0); Immature Granulocytes Auto 0.05 Thou/mm3 (0.00-0.00); Lymphocytes # (Auto) 2.3 Thou/mm3 (1.0-4.8); Lymphocytes % (Auto) 22 % (10-50); Mean Corpuscular HGB Conc 32.5 g/dl (31.0-37.0); Mean Corpuscular Hemoglobin 27.6 pg (25.0-35.0); Mean Corpuscular Volume 85 fL (80-100); Monocytes # (Auto) 0.9 Thou/mm3 (0.0-0.8); Monocytes % (Auto) 9 % (0-12); Neutrophils % (Auto) 66 % (37-80); Nucleated Red Blood Cell % 0 /100 WBC (0); Platelet Count 443 Thou/mm3 (140-440); RDW Standard Deviation 43.5 fL (35.1-43.9); White Blood Count 10.6 Thou/mm3 (3.8-10.6)
[2023-09-08 08:04] LABS: Glucose,Fasting 107 mg/dL (74-106)
[2023-09-08 08:11] LABS: Alanine Aminotransferase 10 U/L (10-49); Albumin/Globulin Ratio 1.2 (1.2-2.2); Alkaline Phosphatase 84 U/L (46-116); Anion Gap 6 (7-16); Aspartate Amino Transferase 14 U/L (0-34); BUN/Creatinine Ratio 43 Ratio (12-20); Bilirubin,Total 0.5 mg/dL (0.3-1.2); Blood Urea Nitrogen 17 mg/dL (9-23); Calcium 9.8 mg/dL (8.3-10.6); Calcium (Corrected) 9.8 mg/dL (8.5-10.1); Chloride 101 mMol/L (98-107); Creatinine (Component) 0.4 mg/dL (0.6-1.3); Estimated Creatinine Clearance 192.4 mL/min (>60); Globulin 3.3 gm/dL (2.3-3.5); Glucose 107 mg/dL (74-106); Osmolality,Calculated 277 (275-295); Sodium 138 mMol/L (136-145); Total Protein 7.3 gm/dL (5.7-8.2); eGFR > 60 See Note
[2023-09-08] MEDS: SENNOSIDES 8.6 MG TABLET GT ×2 (08:51→20:23)
[2023-09-08] MEDS: FUROSEMIDE 20 MG TABLET GT (08:51)
[2023-09-08] MEDS: FAMOTIDINE 20 MG TABLET GT ×2 (08:51→20:23)
--- NOTE | 2023-09-08 16:40 | PC.RT ---
RT called to room for vent alarm, suctioned pt and changed out expiratory filter, alarm resolved.
[2023-09-08] MEDS: INSULIN GLARGINE 100 UNIT/ML INSULN.PEN 14 UNIT SC (17:24)
[2023-09-08] MEDS: DOXAZOSIN 2 MG TABLET 4 MG GT (20:22)
[2023-09-09] VITALS (8 sets, daily range): BP systolic 98–121; BP diastolic 61–71; PULSE 69–79; RESP 20–27; TEMP 36.1–36.2; O2SAT 97–100
[2023-09-09] MEDS: IPRATROPIUM/ALBUTEROL 3 ML AMPUL.NEB INH ×4 (00:05→19:07)
[2023-09-09] MEDS: AMOXICILLIN/POTASSIUM CLAV 1 EACH TABLET 500 EACH GT ×2 (02:44→14:00)
[2023-09-09] MEDS: FAMOTIDINE 20 MG TABLET GT ×2 (08:53→20:21)
[2023-09-09] MEDS: SENNOSIDES 8.6 MG TABLET GT ×2 (08:54→20:21)
[2023-09-09] MEDS: FUROSEMIDE 20 MG TABLET GT (08:54)
[2023-09-09] MEDS: INSULIN REGULAR, HUMAN 100 UNIT/ML VIAL SC (17:57)
[2023-09-09] MEDS: INSULIN GLARGINE 100 UNIT/ML INSULN.PEN 14 UNIT SC (17:57)
[2023-09-09] MEDS: DOXAZOSIN 2 MG TABLET 4 MG GT (20:21)
[2023-09-10] VITALS (8 sets, daily range): BP systolic 93–124; BP diastolic 62–79; PULSE 71–86; RESP 12–30; TEMP 35.9–37.2; O2SAT 94–100
[2023-09-10] MEDS: IPRATROPIUM/ALBUTEROL 3 ML AMPUL.NEB INH ×3 (00:03→18:10)
[2023-09-10] MEDS: AMOXICILLIN/POTASSIUM CLAV 1 EACH TABLET 500 EACH GT (01:42)
[2023-09-10] MEDS: FUROSEMIDE 20 MG TABLET GT (08:00)
[2023-09-10] MEDS: FAMOTIDINE 20 MG TABLET GT ×2 (08:00→20:46)
[2023-09-10] MEDS: SENNOSIDES 8.6 MG TABLET GT ×2 (08:00→20:46)
[2023-09-10] MEDS: AMLODIPINE 5 MG TABLET GT (08:00)
[2023-09-10] MEDS: ACETAMINOPHEN 325 MG TABLET 650 MG GT (14:00)
[2023-09-10] MEDS: INSULIN GLARGINE 100 UNIT/ML INSULN.PEN 14 UNIT SC (17:02)
[2023-09-10] MEDS: DOXAZOSIN 2 MG TABLET 4 MG GT (20:45)
[2023-09-11] VITALS (9 sets, daily range): BP systolic 92–116; BP diastolic 66–72; PULSE 69–83; RESP 12–29; TEMP 36–36.9; O2SAT 97–100
[2023-09-11] MEDS: IPRATROPIUM/ALBUTEROL 3 ML AMPUL.NEB INH ×4 (00:27→20:04)
[2023-09-11] MEDS: FAMOTIDINE 20 MG TABLET GT ×2 (09:17→20:36)
[2023-09-11] MEDS: SENNOSIDES 8.6 MG TABLET GT ×2 (09:18→20:36)
[2023-09-11] MEDS: FUROSEMIDE 20 MG TABLET GT (09:18)
--- NOTE | 2023-09-11 10:40 | CHAP ---
Patient was visited by the Spiritual Care Volunteer who prayed for them. (Volunteer was in the hospital from 10:15-10:40).
--- NOTE | 2023-09-11 12:01 | PC.NURSE ---
[employer] MR[employer]
--- NOTE | 2023-09-11 13:10 | ESPR_ITS ---
Progress Note - SubAcute SUBJECTIVE Fever:: none Shortness of Breath:: none GI:: no complaints Pain:: none OBJECTIVE Most recent vital signs: Last Vital Signs Temp 97.9 F 09/15/23 17:58 Pulse 82 09/15/23 17:58 Resp 16 09/15/23 17:58 BP 129/82 09/15/23 17:58 Pulse Ox 99 09/15/23 13:00 O2 Del Method Mechanical Ventilation 09/15/23 11:56 FiO2 25 09/15/23 13:00 Neurological:: alert (responds to simple commands, shakes hands with his left) Speech:: none Answers questions:: no Respiratory:: shallow breathing Cardiovascular: RRR Abdomen: soft and nontender Extremities:: deformities Decubitus:: improved Tracheostomy:: to ventilator Feeding per:: G tube Complaints:: none ASSESSMENT & PLAN Assessment: Pt. has certainly been awake and eye tracking some, does extend his left hand when offered a hand shake Diagnosis and treatment reviewed. Ventilator settings reviewed. Weaning attempt restarted but not tolerated. All else stable, pt fully dependent for care. I had a detailed conversation with pt's about his status and prognostic outlooks and explained in detail all her questions to which she was thankful even though more saddened by the reality of his condition and unpromising expectations. No new issues Plan: Current treatment as ongoing. Weaning attempts continued. Family updated
[2023-09-11] MEDS: INSULIN GLARGINE 100 UNIT/ML INSULN.PEN 14 UNIT SC (17:42)
[2023-09-11] MEDS: DOXAZOSIN 2 MG TABLET 4 MG GT (20:35)
[2023-09-12] VITALS (8 sets, daily range): BP systolic 108–123; BP diastolic 68–79; PULSE 60–71; RESP 12–21; TEMP 36.1–36.6; O2SAT 96–100
[2023-09-12] MEDS: ACETAMINOPHEN 325 MG TABLET 650 MG GT (04:30)
[2023-09-12] MEDS: IPRATROPIUM/ALBUTEROL 3 ML AMPUL.NEB INH ×3 (06:10→18:22)
[2023-09-12] MEDS: ONDANSETRON HCL 4 MG TABLET GT (06:40)
[2023-09-12] MEDS: FAMOTIDINE 20 MG TABLET GT ×2 (09:28→20:40)
[2023-09-12] MEDS: FUROSEMIDE 20 MG TABLET GT (09:28)
[2023-09-12] MEDS: SENNOSIDES 8.6 MG TABLET GT ×2 (09:29→20:40)
[2023-09-12] MEDS: INSULIN GLARGINE 100 UNIT/ML INSULN.PEN 14 UNIT SC (18:02)
[2023-09-12] MEDS: DOXAZOSIN 2 MG TABLET 4 MG GT (20:39)
[2023-09-13] VITALS (9 sets, daily range): BP systolic 103–140; BP diastolic 54–79; PULSE 63–87; RESP 17–27; TEMP 36.1–36.8; O2SAT 96–100
[2023-09-13] MEDS: IPRATROPIUM/ALBUTEROL 3 ML AMPUL.NEB INH ×4 (01:00→18:33)
[2023-09-13] MEDS: SENNOSIDES 8.6 MG TABLET GT ×2 (09:21→20:27)
[2023-09-13] MEDS: FAMOTIDINE 20 MG TABLET GT ×2 (09:21→20:27)
[2023-09-13] MEDS: FUROSEMIDE 20 MG TABLET GT (09:21)
[2023-09-13] MEDS: INSULIN GLARGINE 100 UNIT/ML INSULN.PEN 14 UNIT SC (17:13)
[2023-09-13] MEDS: DOXAZOSIN 2 MG TABLET 4 MG GT (20:27)
[2023-09-14] VITALS (9 sets, daily range): BP systolic 113–133; BP diastolic 68–74; PULSE 64–83; RESP 18–27; TEMP 35.9–36.4; O2SAT 96–100
[2023-09-14] MEDS: IPRATROPIUM/ALBUTEROL 3 ML AMPUL.NEB INH ×4 (01:00→18:55)
[2023-09-14] MEDS: AMLODIPINE 5 MG TABLET GT (09:00)
[2023-09-14] MEDS: FAMOTIDINE 20 MG TABLET GT ×2 (09:00→20:11)
[2023-09-14] MEDS: SENNOSIDES 8.6 MG TABLET GT ×2 (09:01→20:11)
[2023-09-14] MEDS: FUROSEMIDE 20 MG TABLET GT (09:01)
[2023-09-14] MEDS: INSULIN GLARGINE 100 UNIT/ML INSULN.PEN 14 UNIT SC (16:43)
[2023-09-14] MEDS: DOXAZOSIN 2 MG TABLET 4 MG GT (20:10)
[2023-09-15] VITALS (9 sets, daily range): BP systolic 101–129; BP diastolic 63–82; PULSE 69–82; RESP 12–30; TEMP 36.2–36.7; O2SAT 94–100
[2023-09-15] MEDS: IPRATROPIUM/ALBUTEROL 3 ML AMPUL.NEB INH ×4 (01:16→18:41)
[2023-09-15] MEDS: FAMOTIDINE 20 MG TABLET GT ×2 (09:08→20:09)
[2023-09-15] MEDS: AMLODIPINE 5 MG TABLET GT (09:08)
[2023-09-15] MEDS: FUROSEMIDE 20 MG TABLET GT (09:08)
[2023-09-15] MEDS: SENNOSIDES 8.6 MG TABLET GT ×2 (09:08→20:10)
[2023-09-15] MEDS: INSULIN GLARGINE 100 UNIT/ML INSULN.PEN 14 UNIT SC (16:47)
[2023-09-16] VITALS (9 sets, daily range): BP systolic 107–123; BP diastolic 64–80; PULSE 73–95; RESP 18–26; TEMP 36.2–36.5; O2SAT 96–100
[2023-09-16] MEDS: IPRATROPIUM/ALBUTEROL 3 ML AMPUL.NEB INH ×4 (02:48→19:23)
[2023-09-16] MEDS: AMLODIPINE 5 MG TABLET GT (08:31)
[2023-09-16] MEDS: SENNOSIDES 8.6 MG TABLET GT ×2 (08:32→20:00)
[2023-09-16] MEDS: FUROSEMIDE 20 MG TABLET GT (08:32)
[2023-09-16] MEDS: FAMOTIDINE 20 MG TABLET GT ×2 (08:32→20:00)
[2023-09-16] MEDS: INSULIN GLARGINE 100 UNIT/ML INSULN.PEN 14 UNIT SC (17:17)
[2023-09-16] MEDS: DOXAZOSIN 2 MG TABLET 4 MG GT (20:00)
[2023-09-17] VITALS (9 sets, daily range): BP systolic 99–121; BP diastolic 63–97; PULSE 76–85; RESP 19–31; TEMP 36.1–36.3; O2SAT 96–100
[2023-09-17] MEDS: IPRATROPIUM/ALBUTEROL 3 ML AMPUL.NEB INH ×4 (00:40→18:30)
[2023-09-17] MEDS: SENNOSIDES 8.6 MG TABLET GT ×2 (08:51→20:42)
[2023-09-17] MEDS: FUROSEMIDE 20 MG TABLET GT (08:51)
[2023-09-17] MEDS: FAMOTIDINE 20 MG TABLET GT ×2 (08:51→20:42)
[2023-09-17] MEDS: INSULIN GLARGINE 100 UNIT/ML INSULN.PEN 14 UNIT SC (17:31)
[2023-09-17] MEDS: DOXAZOSIN 2 MG TABLET 4 MG GT (20:42)
[2023-09-18] VITALS (9 sets, daily range): BP systolic 117–131; BP diastolic 27–77; PULSE 59–88; RESP 17–31; TEMP 36.1–36.4; O2SAT 96–100
[2023-09-18] MEDS: IPRATROPIUM/ALBUTEROL 3 ML AMPUL.NEB INH ×4 (00:29→18:15)
[2023-09-18] MEDS: FUROSEMIDE 20 MG TABLET GT (09:25)
[2023-09-18] MEDS: AMLODIPINE 5 MG TABLET GT (09:25)
[2023-09-18] MEDS: FAMOTIDINE 20 MG TABLET GT ×2 (09:25→20:34)
[2023-09-18] MEDS: SENNOSIDES 8.6 MG TABLET GT ×2 (09:26→20:34)
[2023-09-18] MEDS: INSULIN GLARGINE 100 UNIT/ML INSULN.PEN 14 UNIT SC (16:50)
[2023-09-18] MEDS: DOXAZOSIN 2 MG TABLET 4 MG GT (20:34)
[2023-09-18] MEDS: ACETAMINOPHEN 325 MG TABLET 650 MG GT (20:35)
[2023-09-19] VITALS (9 sets, daily range): BP systolic 115–138; BP diastolic 67–76; PULSE 63–74; RESP 20–26; TEMP 36.1–36.3; O2SAT 97–99
[2023-09-19] MEDS: IPRATROPIUM/ALBUTEROL 3 ML AMPUL.NEB INH ×4 (00:29→19:10)
[2023-09-19] MEDS: FAMOTIDINE 20 MG TABLET GT ×2 (08:35→20:40)
[2023-09-19] MEDS: AMLODIPINE 5 MG TABLET GT (08:35)
[2023-09-19] MEDS: FUROSEMIDE 20 MG TABLET GT (08:35)
[2023-09-19] MEDS: SENNOSIDES 8.6 MG TABLET GT ×2 (08:35→20:40)
--- NOTE | 2023-09-19 11:45 | CHAP ---
Patient was visited by the Spiritual Care Volunteer who prayed for them. (Volunteer was in the hospital from 10:10-11:45).
[2023-09-19] MEDS: INSULIN GLARGINE 100 UNIT/ML INSULN.PEN 14 UNIT SC (17:08)
[2023-09-19] MEDS: DOXAZOSIN 2 MG TABLET 4 MG GT (20:40)
[2023-09-19] MEDS: ACETAMINOPHEN 325 MG TABLET 650 MG GT (20:40)
--- NOTE | 2023-09-19 22:21 | ESPR_ITS ---
Progress Note - SubAcute SUBJECTIVE Fever:: none Shortness of Breath:: none GI:: no complaints Pain:: none OBJECTIVE Most recent vital signs: Last Vital Signs Temp 97.0 F 09/19/23 18:00 Pulse 68 09/19/23 18:00 Resp 20 09/19/23 18:00 BP 138/76 H 09/19/23 18:00 Pulse Ox 97 09/19/23 18:00 O2 Del Method Mechanical Ventilation 09/19/23 05:50 FiO2 25 09/19/23 13:32 Neurological:: alert (responds to simple commands, shakes hands with his left) Speech:: none Answers questions:: no Respiratory:: shallow breathing Cardiovascular: RRR Abdomen: soft and nontender Extremities:: deformities Decubitus:: improved Tracheostomy:: to ventilator Feeding per:: G tube Complaints:: none ASSESSMENT & PLAN Assessment: Pt. has certainly been awake and eye tracking some, does extend his left hand when offered a hand shake Diagnosis and treatment reviewed. Ventilator settings reviewed. Weaning attempt restarted but not tolerated. All else stable, pt fully dependent for care. I had a detailed conversation with pt's about his status and prognostic outlooks and explained in detail all her questions to which she was thankful even though more saddened by the reality of his condition and unpromising expectations. No new issues Plan: Current treatment as ongoing. Weaning attempts continued. Family updated
[2023-09-20] VITALS (9 sets, daily range): BP systolic 99–137; BP diastolic 59–73; PULSE 68–82; RESP 16–27; TEMP 36.1–36.7; O2SAT 96–99
[2023-09-20] MEDS: IPRATROPIUM/ALBUTEROL 3 ML AMPUL.NEB INH ×4 (00:16→18:33)
[2023-09-20] MEDS: SENNOSIDES 8.6 MG TABLET GT ×2 (09:14→21:22)
[2023-09-20] MEDS: FUROSEMIDE 20 MG TABLET GT (09:14)
[2023-09-20] MEDS: FAMOTIDINE 20 MG TABLET GT ×2 (09:14→21:22)
[2023-09-20] MEDS: INSULIN GLARGINE 100 UNIT/ML INSULN.PEN 14 UNIT SC (17:29)
[2023-09-20] MEDS: INSULIN REGULAR, HUMAN 100 UNIT/ML VIAL SC (17:29)
[2023-09-20] MEDS: DOXAZOSIN 2 MG TABLET 4 MG GT (21:21)
[2023-09-21] VITALS (9 sets, daily range): BP systolic 96–120; BP diastolic 65–77; PULSE 70–80; RESP 20–28; TEMP 36.2–36.9; O2SAT 97–100
[2023-09-21] MEDS: IPRATROPIUM/ALBUTEROL 3 ML AMPUL.NEB INH ×2 (00:50→18:04)
[2023-09-21] MEDS: AMLODIPINE 5 MG TABLET GT (08:54)
[2023-09-21] MEDS: SENNOSIDES 8.6 MG TABLET GT ×2 (08:55→20:40)
[2023-09-21] MEDS: FAMOTIDINE 20 MG TABLET GT ×2 (08:55→20:40)
[2023-09-21] MEDS: FUROSEMIDE 20 MG TABLET GT (08:55)
--- NOTE | 2023-09-21 11:29 | CHAP ---
Patient was visited by the Spiritual Care Volunteer who prayed for them. (Volunteer was in the hospital from 09:32-11:29).
[2023-09-21] MEDS: INSULIN GLARGINE 100 UNIT/ML INSULN.PEN 14 UNIT SC (17:25)
[2023-09-21] MEDS: ACETAMINOPHEN 325 MG TABLET 650 MG GT (20:30)
[2023-09-21] MEDS: DOXAZOSIN 2 MG TABLET 4 MG GT (20:40)
[2023-09-22] VITALS (10 sets, daily range): BP systolic 100–133; BP diastolic 56–77; PULSE 65–79; RESP 16–30; TEMP 36.2–36.4; O2SAT 97–99
[2023-09-22] MEDS: IPRATROPIUM/ALBUTEROL 3 ML AMPUL.NEB INH ×4 (01:40→18:20)
[2023-09-22 08:29] LABS: Glucose,Fasting 108 mg/dL (74-106)
[2023-09-22] MEDS: SENNOSIDES 8.6 MG TABLET GT ×2 (09:42→20:02)
[2023-09-22] MEDS: FAMOTIDINE 20 MG TABLET GT ×2 (09:42→20:02)
[2023-09-22] MEDS: FUROSEMIDE 20 MG TABLET GT (09:42)
[2023-09-22] MEDS: ONDANSETRON HCL 4 MG TABLET GT (11:40)
--- NOTE | 2023-09-22 11:41 | PC.SS ---
Resident is laying in bed with head of the bed elevated with call light properly placed with no signs of distress. Resident remains on ventilator with trach in place and GT in place for medication and nutrition. Resident decision maker is his Harper Ferreira, resident is able to answer simple questions with head nod. Resident will remain in current care as he is total care, he will continue to have all subacute care needs met by staff. This SSD will continue to make daily contact with resident.
--- NOTE | 2023-09-22 14:37 | PC.SS ---
Resident seen by [employer] for routine toe nail trim, no new orders to continue current care.
[2023-09-22] MEDS: INSULIN GLARGINE 100 UNIT/ML INSULN.PEN 14 UNIT SC (17:09)
[2023-09-22] MEDS: DOXAZOSIN 2 MG TABLET 4 MG GT (20:00)
[2023-09-23] VITALS (9 sets, daily range): BP systolic 103–135; BP diastolic 60–74; PULSE 60–84; RESP 15–26; TEMP 36.1–36.5; O2SAT 97–100
[2023-09-23] MEDS: IPRATROPIUM/ALBUTEROL 3 ML AMPUL.NEB INH ×4 (00:35→18:40)
[2023-09-23] MEDS: FAMOTIDINE 20 MG TABLET GT ×2 (08:34→20:08)
[2023-09-23] MEDS: SENNOSIDES 8.6 MG TABLET GT ×2 (08:35→20:08)
[2023-09-23] MEDS: FUROSEMIDE 20 MG TABLET GT (08:35)
[2023-09-23] MEDS: INSULIN GLARGINE 100 UNIT/ML INSULN.PEN 14 UNIT SC (17:00)
[2023-09-23] MEDS: DOXAZOSIN 2 MG TABLET 4 MG GT (20:08)
--- NOTE | 2023-09-23 21:13 | ESPR_ITS ---
Progress Note - SubAcute SUBJECTIVE Fever:: none Shortness of Breath:: none GI:: no complaints Pain:: none OBJECTIVE Most recent vital signs: Last Vital Signs Temp 97.3 F 09/23/23 18:00 Pulse 75 09/23/23 18:00 Resp 15 09/23/23 18:00 BP 135/73 H 09/23/23 18:00 Pulse Ox 97 09/23/23 13:51 O2 Del Method Mechanical Ventilation 09/23/23 05:57 FiO2 25 09/23/23 13:51 Neurological:: alert (responds to simple commands, shakes hands with his left) Speech:: none Answers questions:: no Respiratory:: shallow breathing Cardiovascular: RRR Abdomen: soft and nontender Extremities:: deformities Decubitus:: improved Tracheostomy:: to ventilator Feeding per:: G tube Complaints:: none ASSESSMENT & PLAN Assessment: Pt. has certainly been awake and eye tracking some, does extend his left hand when offered a hand shake Diagnosis and treatment reviewed. Ventilator settings reviewed. Weaning attempt restarted but not tolerated. All else stable, pt fully dependent for care. I had a detailed conversation with pt's about his status and prognostic outlooks and explained in detail all her questions to which she was thankful even though more saddened by the reality of his condition and unpromising expectations. No new issues Plan: Current treatment as ongoing. Weaning attempts continued. Family updated
[2023-09-24] VITALS (9 sets, daily range): BP systolic 101–137; BP diastolic 64–84; PULSE 55–83; RESP 18–27; TEMP 36.2–36.7; O2SAT 97–100
[2023-09-24] MEDS: IPRATROPIUM/ALBUTEROL 3 ML AMPUL.NEB INH ×4 (00:15→18:13)
[2023-09-24] MEDS: FAMOTIDINE 20 MG TABLET GT ×2 (08:08→20:00)
[2023-09-24] MEDS: AMLODIPINE 5 MG TABLET GT (08:08)
[2023-09-24] MEDS: SENNOSIDES 8.6 MG TABLET GT ×2 (08:09→20:00)
[2023-09-24] MEDS: FUROSEMIDE 20 MG TABLET GT (08:09)
[2023-09-24] MEDS: INSULIN GLARGINE 100 UNIT/ML INSULN.PEN 14 UNIT SC (17:04)
[2023-09-24] MEDS: DOXAZOSIN 2 MG TABLET 4 MG GT (20:00)
[2023-09-25] VITALS (8 sets, daily range): BP systolic 108–133; BP diastolic 70–80; PULSE 71–86; RESP 16–26; TEMP 36.2–36.9; O2SAT 97–100
[2023-09-25] MEDS: IPRATROPIUM/ALBUTEROL 3 ML AMPUL.NEB INH ×4 (00:34→18:28)
[2023-09-25] MEDS: FUROSEMIDE 20 MG TABLET GT (09:05)
[2023-09-25] MEDS: SENNOSIDES 8.6 MG TABLET GT ×2 (09:05→20:42)
[2023-09-25] MEDS: FAMOTIDINE 20 MG TABLET GT ×2 (09:05→20:42)
--- NOTE | 2023-09-25 15:19 | CHAP ---
10:00 AM Visited by spiritual care volunteer Provided prayer for Patient.
[2023-09-25] MEDS: INSULIN GLARGINE 100 UNIT/ML INSULN.PEN 14 UNIT SC (17:38)
[2023-09-25] MEDS: DOXAZOSIN 2 MG TABLET 4 MG GT (20:42)
[2023-09-26] VITALS (9 sets, daily range): BP systolic 110–123; BP diastolic 70–73; PULSE 65–84; RESP 20–25; TEMP 36.3–37; O2SAT 24–100
[2023-09-26] MEDS: IPRATROPIUM/ALBUTEROL 3 ML AMPUL.NEB INH ×4 (00:44→19:07)
[2023-09-26] MEDS: FUROSEMIDE 20 MG TABLET GT (08:06)
[2023-09-26] MEDS: SENNOSIDES 8.6 MG TABLET GT ×2 (08:06→20:13)
[2023-09-26] MEDS: FAMOTIDINE 20 MG TABLET GT ×2 (08:06→20:13)
[2023-09-26] MEDS: AMLODIPINE 5 MG TABLET GT (08:06)
--- NOTE | 2023-09-26 12:00 | CHAP ---
Patient was visited by the Spiritual Care Volunteer who prayed for them. (Volunteer was in the hospital from 10:05-12:00)
[2023-09-26] MEDS: INSULIN GLARGINE 100 UNIT/ML INSULN.PEN 14 UNIT SC (17:40)
[2023-09-26] MEDS: DOXAZOSIN 2 MG TABLET 4 MG GT (20:13)
[2023-09-27] VITALS (9 sets, daily range): BP systolic 105–136; BP diastolic 70–81; PULSE 68–84; RESP 11–28; TEMP 36.1–36.3; O2SAT 96–99
[2023-09-27] MEDS: IPRATROPIUM/ALBUTEROL 3 ML AMPUL.NEB INH ×4 (00:54→18:40)
[2023-09-27] MEDS: FUROSEMIDE 20 MG TABLET GT (09:14)
[2023-09-27] MEDS: SENNOSIDES 8.6 MG TABLET GT ×2 (09:14→20:39)
[2023-09-27] MEDS: FAMOTIDINE 20 MG TABLET GT ×2 (09:14→20:39)
[2023-09-27] MEDS: ONDANSETRON HCL 4 MG TABLET GT (16:42)
[2023-09-27] MEDS: INSULIN GLARGINE 100 UNIT/ML INSULN.PEN 14 UNIT SC (17:13)
[2023-09-27] MEDS: DOXAZOSIN 2 MG TABLET 4 MG GT (20:38)
--- NOTE | 2023-09-27 23:33 | ESPR_ITS ---
Progress Note - SubAcute SUBJECTIVE Fever:: none Shortness of Breath:: none GI:: no complaints Pain:: none OBJECTIVE Most recent vital signs: Last Vital Signs Temp 97.3 F 09/27/23 17:03 Pulse 73 09/27/23 18:40 Resp 24 H 09/27/23 18:40 BP 136/81 H 09/27/23 17:03 Pulse Ox 97 09/27/23 18:40 O2 Del Method Blow-by 09/27/23 06:00 FiO2 25 09/27/23 18:40 Neurological:: alert (responds to simple commands, shakes hands with his left) Speech:: none Answers questions:: no Respiratory:: shallow breathing Cardiovascular: RRR Abdomen: soft and nontender Extremities:: deformities Decubitus:: improved Tracheostomy:: to ventilator Feeding per:: G tube Complaints:: none ASSESSMENT & PLAN Assessment: Pt. has certainly been awake and eye tracking some, does extend his left hand when offered a hand shake Diagnosis and treatment reviewed. Ventilator settings reviewed. Weaning attempt restarted but not tolerated. All else stable, pt fully dependent for care. I had a detailed conversation with pt's about his status and prognostic outlooks and explained in detail all her questions to which she was thankful even though more saddened by the reality of his condition and unpromising expectations. No new issues Plan: Current treatment as ongoing. Weaning attempts continued. Family updated
[2023-09-28] VITALS (9 sets, daily range): BP systolic 103–128; BP diastolic 62–76; PULSE 70–89; RESP 15–22; TEMP 36.1–37.1; O2SAT 97–99
[2023-09-28] MEDS: IPRATROPIUM/ALBUTEROL 3 ML AMPUL.NEB INH ×4 (02:50→19:30)
[2023-09-28] MEDS: FAMOTIDINE 20 MG TABLET GT ×2 (09:05→20:01)
[2023-09-28] MEDS: FUROSEMIDE 20 MG TABLET GT (09:05)
[2023-09-28] MEDS: SENNOSIDES 8.6 MG TABLET GT ×2 (09:05→20:01)
--- NOTE | 2023-09-28 11:33 | CHAP ---
Patient was visited by the Spiritual Care Volunteer who prayed for them. (Volunteer was in the hospital from 09:50-11:33)
[2023-09-28] MEDS: INSULIN GLARGINE 100 UNIT/ML INSULN.PEN 14 UNIT SC (17:37)
[2023-09-29] VITALS (9 sets, daily range): BP systolic 121–146; BP diastolic 65–91; PULSE 69–78; RESP 15–24; TEMP 36.1–36.7; O2SAT 97–99
[2023-09-29] MEDS: IPRATROPIUM/ALBUTEROL 3 ML AMPUL.NEB INH ×5 (00:15→18:55)
[2023-09-29] MEDS: FAMOTIDINE 20 MG TABLET GT ×2 (09:54→20:49)
[2023-09-29] MEDS: AMLODIPINE 5 MG TABLET GT (09:54)
[2023-09-29] MEDS: FUROSEMIDE 20 MG TABLET GT (09:54)
[2023-09-29] MEDS: SENNOSIDES 8.6 MG TABLET GT ×2 (09:55→20:49)
[2023-09-29] MEDS: INSULIN GLARGINE 100 UNIT/ML INSULN.PEN 14 UNIT SC (17:41)
[2023-09-29] MEDS: DOXAZOSIN 2 MG TABLET 4 MG GT (20:49)
[2023-09-30] VITALS (9 sets, daily range): BP systolic 91–116; BP diastolic 52–72; PULSE 62–91; RESP 16–27; TEMP 36.1–36.6; O2SAT 97–99
[2023-09-30] MEDS: IPRATROPIUM/ALBUTEROL 3 ML AMPUL.NEB INH ×3 (01:30→18:30)
[2023-09-30] MEDS: AMLODIPINE 5 MG TABLET GT (08:58)
[2023-09-30] MEDS: FAMOTIDINE 20 MG TABLET GT ×2 (08:58→20:36)
[2023-09-30] MEDS: SENNOSIDES 8.6 MG TABLET GT ×2 (08:59→20:36)
[2023-09-30] MEDS: FUROSEMIDE 20 MG TABLET GT (08:59)
[2023-09-30] MEDS: INSULIN GLARGINE 100 UNIT/ML INSULN.PEN 14 UNIT SC (16:49)
[2023-09-30] MEDS: DOXAZOSIN 2 MG TABLET 4 MG GT (20:36)
[2023-09-30] MEDS: ACETAMINOPHEN 325 MG TABLET 650 MG GT (20:40)
[2023-10-01] VITALS (8 sets, daily range): BP systolic 107–122; BP diastolic 69–80; PULSE 73–87; RESP 19–25; TEMP 36.2; O2SAT 97–99
[2023-10-01] MEDS: IPRATROPIUM/ALBUTEROL 3 ML AMPUL.NEB INH ×4 (00:50→20:24)
[2023-10-01] MEDS: FUROSEMIDE 20 MG TABLET GT (08:10)
[2023-10-01] MEDS: FAMOTIDINE 20 MG TABLET GT ×2 (08:10→20:28)
[2023-10-01] MEDS: SENNOSIDES 8.6 MG TABLET GT ×2 (08:10→20:29)
--- NOTE | 2023-10-01 11:43 | PC.SS ---
This SSD spoke with resident Harper Ferreira who requested resident to be seen by ST for a swallow evaluation. Harper also asked if vent weaning has continued,she would like it be done. Her goals for resident is for him to return home off the ventilator. This SSD informed charge nurse who stated she would speak with MD about both request. This SSD will follow up with IDT and provide Harper an update regarding her request.
--- NOTE | 2023-10-01 14:05 | ESPR_ITS ---
Progress Note - SubAcute SUBJECTIVE Fever:: none Shortness of Breath:: none GI:: no complaints Pain:: none OBJECTIVE Most recent vital signs: Last Vital Signs Temp 97.4 F 10/05/23 12:00 Pulse 74 10/05/23 12:06 Resp 20 10/05/23 12:06 BP 103/64 10/05/23 12:00 Pulse Ox 99 10/05/23 12:06 O2 Del Method Trans-Tracheal Cannula 10/04/23 06:00 FiO2 25 10/05/23 12:06 Neurological:: alert (responds to simple commands, shakes hands with his left) Speech:: none Answers questions:: no Respiratory:: shallow breathing Cardiovascular: RRR Abdomen: soft and nontender Extremities:: deformities Decubitus:: improved Tracheostomy:: to ventilator Feeding per:: G tube Complaints:: none ASSESSMENT & PLAN Assessment: Pt. has certainly been awake and eye tracking some, does extend his left hand when offered a hand shake Diagnosis and treatment reviewed. Ventilator settings reviewed. Weaning attempt restarted but not tolerated. All else stable, pt fully dependent for care. I had a detailed converiisation with pt's about his status and prognostic outlooks and explained in detail all her questions to which she was thankful even though more saddened by the reality of his condition and unpromising expectations. He shows no improvement in his chronic significant neurological deficit.No new issues Plan: Current treatment as ongoing. Weaning attempts continued. Family updated
[2023-10-01] MEDS: INSULIN GLARGINE 100 UNIT/ML INSULN.PEN 14 UNIT SC (17:54)
[2023-10-01] MEDS: DOXAZOSIN 2 MG TABLET 4 MG GT (20:27)
[2023-10-02] VITALS (9 sets, daily range): BP systolic 102–136; BP diastolic 67–83; PULSE 71–85; RESP 18–23; TEMP 36.3–36.4; O2SAT 97–99
[2023-10-02] MEDS: IPRATROPIUM/ALBUTEROL 3 ML AMPUL.NEB INH ×4 (01:36→18:07)
[2023-10-02] MEDS: SENNOSIDES 8.6 MG TABLET GT ×2 (08:57→20:11)
[2023-10-02] MEDS: FAMOTIDINE 20 MG TABLET GT ×2 (08:57→20:10)
[2023-10-02] MEDS: FUROSEMIDE 20 MG TABLET GT (08:57)
--- NOTE | 2023-10-02 11:38 | CHAP ---
Patient was visited by Spiritual Care Volunteer who prayed for them. (Volunteer was in the hospital from 10:48-11:38)
[2023-10-02] MEDS: INSULIN GLARGINE 100 UNIT/ML INSULN.PEN 14 UNIT SC (17:45)
[2023-10-02] MEDS: DOXAZOSIN 2 MG TABLET 4 MG GT (20:10)
[2023-10-03] VITALS (9 sets, daily range): BP systolic 106–146; BP diastolic 72–78; PULSE 69–93; RESP 18–24; TEMP 36.1–36.4; O2SAT 97–100
[2023-10-03] MEDS: IPRATROPIUM/ALBUTEROL 3 ML AMPUL.NEB INH ×4 (00:05→18:50)
[2023-10-03] MEDS: FUROSEMIDE 20 MG TABLET GT (09:17)
[2023-10-03] MEDS: FAMOTIDINE 20 MG TABLET GT ×2 (09:17→20:10)
[2023-10-03] MEDS: SENNOSIDES 8.6 MG TABLET GT ×2 (09:17→20:11)
--- NOTE | 2023-10-03 10:22 | PC.NURSE ---
Report received from SS that resident's requesting for ST to check if resident able to swallow/eat and to try weaning off . Called Dr sarmiento and made aware with order received to refer to ST, RT
[2023-10-03] MEDS: INSULIN GLARGINE 100 UNIT/ML INSULN.PEN 14 UNIT SC (17:07)
[2023-10-03] MEDS: DOXAZOSIN 2 MG TABLET 4 MG GT (20:10)
[2023-10-04] VITALS (9 sets, daily range): BP systolic 94–128; BP diastolic 57–79; PULSE 69–85; RESP 17–28; TEMP 36.3–36.5; O2SAT 97–100
[2023-10-04] MEDS: IPRATROPIUM/ALBUTEROL 3 ML AMPUL.NEB INH ×4 (00:45→18:25)
[2023-10-04] MEDS: FAMOTIDINE 20 MG TABLET GT ×2 (09:07→20:00)
[2023-10-04] MEDS: AMLODIPINE 5 MG TABLET GT (09:07)
[2023-10-04] MEDS: SENNOSIDES 8.6 MG TABLET GT ×2 (09:07→20:01)
[2023-10-04] MEDS: FUROSEMIDE 20 MG TABLET GT (09:07)
[2023-10-04] MEDS: INSULIN GLARGINE 100 UNIT/ML INSULN.PEN 14 UNIT SC (17:55)
[2023-10-04] MEDS: DOXAZOSIN 2 MG TABLET 4 MG GT (20:01)
[2023-10-05] VITALS (9 sets, daily range): BP systolic 89–123; BP diastolic 61–77; PULSE 72–86; RESP 17–28; TEMP 36.2–36.3; O2SAT 97–100
[2023-10-05] MEDS: IPRATROPIUM/ALBUTEROL 3 ML AMPUL.NEB INH ×4 (01:44→18:28)
[2023-10-05] MEDS: FAMOTIDINE 20 MG TABLET GT ×2 (08:42→20:06)
[2023-10-05] MEDS: AMLODIPINE 5 MG TABLET GT (08:42)
[2023-10-05] MEDS: SENNOSIDES 8.6 MG TABLET GT ×2 (08:43→20:06)
[2023-10-05] MEDS: FUROSEMIDE 20 MG TABLET GT (08:43)
--- NOTE | 2023-10-05 16:16 | ESPR_ITS ---
Progress Note - SubAcute SUBJECTIVE Fever:: none Shortness of Breath:: none GI:: no complaints Pain:: none OBJECTIVE Most recent vital signs: Last Vital Signs Temp 97.4 F 10/05/23 12:00 Pulse 74 10/05/23 12:06 Resp 20 10/05/23 12:06 BP 103/64 10/05/23 12:00 Pulse Ox 99 10/05/23 12:06 O2 Del Method Trans-Tracheal Cannula 10/04/23 06:00 FiO2 25 10/05/23 12:06 Neurological:: alert (responds to simple commands, shakes hands with his left) Speech:: none Answers questions:: no Respiratory:: shallow breathing Cardiovascular: RRR Abdomen: soft and nontender Extremities:: deformities Decubitus:: improved Tracheostomy:: to ventilator Feeding per:: G tube Complaints:: none ASSESSMENT & PLAN Assessment: Pt. has certainly been awake and eye tracking some, does extend his left hand when offered a hand shake Diagnosis and treatment reviewed. Ventilator settings reviewed. Weaning attempt restarted but not tolerated. All else stable, pt fully dependent for care. I had a detailed converiisation with pt's about his status and prognostic outlooks and explained in detail all her questions to which she was thankful even though more saddened by the reality of his condition and unpromising expectations. He shows no improvement in his chronic significant neurological deficit.No new issues Pt's requested Speech evaluation to see if he can swallow anything for some gratification of taste if possible which was so ordered. Plan: Current treatment as ongoing. Weaning attempts continued. Family updated
[2023-10-05] MEDS: INSULIN GLARGINE 100 UNIT/ML INSULN.PEN 14 UNIT SC (17:13)
[2023-10-05] MEDS: DOXAZOSIN 2 MG TABLET 4 MG GT (20:05)
[2023-10-05] MEDS: ACETAMINOPHEN 325 MG TABLET 650 MG GT (20:05)
[2023-10-06] VITALS (9 sets, daily range): BP systolic 101–136; BP diastolic 64–87; PULSE 69–81; RESP 17–26; TEMP 36.1–36.3; O2SAT 96–99
[2023-10-06] MEDS: IPRATROPIUM/ALBUTEROL 3 ML AMPUL.NEB INH ×4 (00:40→19:15)
[2023-10-06] MEDS: FUROSEMIDE 20 MG TABLET GT (08:25)
[2023-10-06] MEDS: FAMOTIDINE 20 MG TABLET GT ×2 (08:25→20:27)
[2023-10-06] MEDS: INSULIN GLARGINE 100 UNIT/ML INSULN.PEN 14 UNIT SC (17:52)
[2023-10-06] MEDS: ACETAMINOPHEN 325 MG TABLET 650 MG GT (20:20)
[2023-10-06] MEDS: DOXAZOSIN 2 MG TABLET 4 MG GT (20:26)
[2023-10-06] MEDS: SENNOSIDES 8.6 MG TABLET GT (20:27)
[2023-10-07] VITALS (9 sets, daily range): BP systolic 104–129; BP diastolic 66–78; PULSE 69–88; RESP 18–26; TEMP 36.1–36.4; O2SAT 98–100
[2023-10-07] MEDS: IPRATROPIUM/ALBUTEROL 3 ML AMPUL.NEB INH ×4 (00:45→18:30)
--- NOTE | 2023-10-07 08:08 | CHAP ---
Patient was visited by a [facility] Spiritual Care volunteer on 10/06/2023 between 1115 and 1215 and received comfort, encouragement and/or prayer.
--- NOTE | 2023-10-07 08:22 | CHAP ---
Patient was visited by a [facility] Spiritual Care volunteer on 10/05/2023 between [id number] and [id number] and received comfort, encouragement and/or prayer.
[2023-10-07] MEDS: FAMOTIDINE 20 MG TABLET GT ×2 (09:31→20:48)
[2023-10-07] MEDS: FUROSEMIDE 20 MG TABLET GT (09:32)
[2023-10-07] MEDS: SENNOSIDES 8.6 MG TABLET GT ×2 (09:32→20:48)
[2023-10-07] MEDS: INSULIN GLARGINE 100 UNIT/ML INSULN.PEN 14 UNIT SC (17:08)
[2023-10-07] MEDS: DOXAZOSIN 2 MG TABLET 4 MG GT (20:48)
--- NOTE | 2023-10-07 21:43 | ESPR_ITS ---
Progress Note - SubAcute SUBJECTIVE Fever:: none Shortness of Breath:: none GI:: no complaints Pain:: none OBJECTIVE Most recent vital signs: Last Vital Signs Temp 97.4 F 10/07/23 17:35 Pulse 88 10/07/23 19:07 Resp 26 H 10/07/23 19:07 BP 124/74 10/07/23 17:35 Pulse Ox 99 10/07/23 19:07 O2 Del Method Trans-Tracheal Cannula 10/05/23 18:00 FiO2 25 10/07/23 19:07 Neurological:: alert (responds to simple commands, shakes hands with his left) Speech:: none Answers questions:: no Respiratory:: shallow breathing Cardiovascular: RRR Abdomen: soft and nontender Extremities:: deformities Decubitus:: improved Tracheostomy:: to ventilator Feeding per:: G tube Complaints:: none ASSESSMENT & PLAN Assessment: Pt. has certainly been awake and eye tracking some, does extend his left hand when offered a hand shake Diagnosis and treatment reviewed. Ventilator settings reviewed. Weaning attempt restarted and are now well tolerated and making progress on Pressure support alone. All else stable, pt fully dependent for care. I had a detailed converiisation with pt's about his status and prognostic outlooks and explained in detail all her questions to which she was thankful even though more saddened by the reality of his condition and unpromising expectations. He shows no improvement in his chronic significant neurological deficit.No new issues Pt's requested Speech evaluation to see if he can swallow anything for some gratification of taste if possible which was so ordered. Now making progress with Ventilator weaning. Plan: Current treatment as ongoing. Weaning attempts continued. Family updated
[2023-10-08] VITALS (9 sets, daily range): BP systolic 94–119; BP diastolic 65–74; PULSE 75–85; RESP 18–30; TEMP 36.2–36.4; O2SAT 95–99
[2023-10-08] MEDS: IPRATROPIUM/ALBUTEROL 3 ML AMPUL.NEB INH ×4 (00:01→19:15)
[2023-10-08] MEDS: FAMOTIDINE 20 MG TABLET GT ×2 (08:56→20:25)
[2023-10-08] MEDS: FUROSEMIDE 20 MG TABLET GT (08:56)
[2023-10-08] MEDS: SENNOSIDES 8.6 MG TABLET GT ×2 (08:57→20:25)
--- NOTE | 2023-10-08 11:23 | PC.NURSE ---
Update given to resident's regarding vent weaning and ST evaluation. RP verbalized understanding.
[2023-10-08] MEDS: INSULIN GLARGINE 100 UNIT/ML INSULN.PEN 14 UNIT SC (17:40)
[2023-10-08] MEDS: INSULIN REGULAR, HUMAN 100 UNIT/ML VIAL SC (17:40)
[2023-10-08] MEDS: DOXAZOSIN 2 MG TABLET 4 MG GT (20:25)
[2023-10-09] VITALS (9 sets, daily range): BP systolic 105–142; BP diastolic 63–87; PULSE 64–80; RESP 19–26; TEMP 36–36.2; O2SAT 96–100
[2023-10-09] MEDS: IPRATROPIUM/ALBUTEROL 3 ML AMPUL.NEB INH ×4 (00:20→20:00)
[2023-10-09] MEDS: FAMOTIDINE 20 MG TABLET GT ×2 (09:33→20:32)
[2023-10-09] MEDS: AMLODIPINE 5 MG TABLET GT (09:33)
[2023-10-09] MEDS: FUROSEMIDE 20 MG TABLET GT (09:34)
[2023-10-09] MEDS: SENNOSIDES 8.6 MG TABLET GT ×2 (09:34→20:32)
--- NOTE | 2023-10-09 11:13 | CHAP ---
Patient was visited by the Spiritual Care Volunteer who prayed for them. (Volunteer was in the hospital from 10:30-11:13)
[2023-10-09] MEDS: INSULIN GLARGINE 100 UNIT/ML INSULN.PEN 14 UNIT SC (18:06)
[2023-10-09] MEDS: DOXAZOSIN 2 MG TABLET 4 MG GT (20:31)
[2023-10-10] VITALS (9 sets, daily range): BP systolic 113–124; BP diastolic 68–77; PULSE 69–81; RESP 18–25; TEMP 35.9–36.1; O2SAT 95–100
[2023-10-10] MEDS: IPRATROPIUM/ALBUTEROL 3 ML AMPUL.NEB INH ×4 (01:00→18:20)
[2023-10-10] MEDS: AMLODIPINE 5 MG TABLET GT (08:52)
[2023-10-10] MEDS: FAMOTIDINE 20 MG TABLET GT ×2 (08:53→20:00)
[2023-10-10] MEDS: FUROSEMIDE 20 MG TABLET GT (08:53)
[2023-10-10] MEDS: SENNOSIDES 8.6 MG TABLET GT ×2 (08:53→20:01)
--- NOTE | 2023-10-10 10:45 | CHAP ---
Patient was visited by the Spiritual Care Volunteer who prayed for them, (Volunteer was in the hospital from 09:50-10:45).
[2023-10-10] MEDS: ONDANSETRON HCL 4 MG TABLET GT (12:05)
--- NOTE | 2023-10-10 15:55 | PC.SS ---
Room visit: Resident is laying in bed with head of the bed elevated with call light properly placed with no signs of distress. Resident remains on ventilator with trach in place and GT in place for medication and nutrition. Resident is total care no speech unable to make needs known, resident will answer simple yes/no questions with head nod. Resident will remain in current care until goals for DC are met. Resident will continue to have all subacute care needs met by staff. This SSD will assist with DC planning when appropriate he will continue to be monitored for changes in mood and behavior.
[2023-10-10] MEDS: INSULIN GLARGINE 100 UNIT/ML INSULN.PEN 14 UNIT SC (17:42)
[2023-10-10] MEDS: DOXAZOSIN 2 MG TABLET 4 MG GT (20:00)
[2023-10-11] VITALS (9 sets, daily range): BP systolic 109–144; BP diastolic 65–79; PULSE 64–84; RESP 15–24; TEMP 36.1–36.6; O2SAT 98–100
[2023-10-11] MEDS: IPRATROPIUM/ALBUTEROL 3 ML AMPUL.NEB INH ×4 (00:56→18:30)
[2023-10-11] MEDS: FUROSEMIDE 20 MG TABLET GT (09:25)
[2023-10-11] MEDS: AMLODIPINE 5 MG TABLET GT (09:25)
[2023-10-11] MEDS: FAMOTIDINE 20 MG TABLET GT ×2 (09:25→20:00)
[2023-10-11] MEDS: SENNOSIDES 8.6 MG TABLET GT ×2 (09:25→20:00)
[2023-10-11] MEDS: INSULIN GLARGINE 100 UNIT/ML INSULN.PEN 14 UNIT SC (17:45)
[2023-10-11] MEDS: DOXAZOSIN 2 MG TABLET 4 MG GT (20:00)
--- NOTE | 2023-10-11 21:44 | ESPR_ITS ---
Progress Note - SubAcute SUBJECTIVE Fever:: none Shortness of Breath:: none GI:: no complaints Pain:: none OBJECTIVE Most recent vital signs: Last Vital Signs Temp 97.9 F 10/11/23 18:00 Pulse 84 10/11/23 18:30 Resp 24 H 10/11/23 18:30 BP 122/65 10/11/23 18:00 Pulse Ox 99 10/11/23 18:30 O2 Del Method Mechanical Ventilation 10/11/23 12:00 FiO2 25 10/11/23 18:30 Neurological:: alert (responds to simple commands, shakes hands with his left) Speech:: none Answers questions:: no Respiratory:: shallow breathing Cardiovascular: RRR Abdomen: soft and nontender Extremities:: deformities Decubitus:: improved Tracheostomy:: to ventilator Feeding per:: G tube Complaints:: none ASSESSMENT & PLAN Assessment: Pt. has certainly been awake and eye tracking some, does extend his left hand when offered a hand shake Diagnosis and treatment reviewed. Ventilator settings reviewed. Weaning attempt restarted and are now well tolerated and making progress on Pressure support alone. All else stable, pt fully dependent for care. I had a detailed converiisation with pt's about his status and prognostic outlooks and explained in detail all her questions to which she was thankful even though more saddened by the reality of his condition and unpromising expectations. He shows no improvement in his chronic significant neurological deficit.No new issues Pt's requested Speech evaluation to see if he can swallow anything for some gratification of taste if possible which was so ordered. Now making progress with Ventilator weaning and tolerating pressure support. Plan: Current treatment as ongoing. Weaning attempts continued. Family updated
[2023-10-12] VITALS (9 sets, daily range): BP systolic 111–128; BP diastolic 66–82; PULSE 73–89; RESP 17–28; TEMP 35.9–36.5; O2SAT 94–98
[2023-10-12] MEDS: IPRATROPIUM/ALBUTEROL 3 ML AMPUL.NEB INH ×4 (00:05→18:30)
[2023-10-12] MEDS: SENNOSIDES 8.6 MG TABLET GT ×2 (09:15→20:00)
[2023-10-12] MEDS: FAMOTIDINE 20 MG TABLET GT ×2 (09:15→20:00)
[2023-10-12] MEDS: AMLODIPINE 5 MG TABLET GT (09:15)
[2023-10-12] MEDS: FUROSEMIDE 20 MG TABLET GT (09:15)
[2023-10-12] MEDS: INSULIN GLARGINE 100 UNIT/ML INSULN.PEN 14 UNIT SC (17:06)
[2023-10-12] MEDS: DOXAZOSIN 2 MG TABLET 4 MG GT (20:00)
[2023-10-13] VITALS (9 sets, daily range): BP systolic 91–128; BP diastolic 56–81; PULSE 61–79; RESP 17–25; TEMP 35.9–36.3; O2SAT 97–100
[2023-10-13] MEDS: IPRATROPIUM/ALBUTEROL 3 ML AMPUL.NEB INH ×4 (01:20→19:05)
[2023-10-13] MEDS: AMLODIPINE 5 MG TABLET GT (08:08)
[2023-10-13] MEDS: SENNOSIDES 8.6 MG TABLET GT ×2 (08:09→21:32)
[2023-10-13] MEDS: FUROSEMIDE 20 MG TABLET GT (08:09)
[2023-10-13] MEDS: FAMOTIDINE 20 MG TABLET GT ×2 (08:09→21:32)
[2023-10-13] MEDS: INSULIN GLARGINE 100 UNIT/ML INSULN.PEN 14 UNIT SC (17:28)
[2023-10-13] MEDS: INSULIN REGULAR, HUMAN 100 UNIT/ML VIAL SC (17:28)
[2023-10-13] MEDS: DOXAZOSIN 2 MG TABLET 4 MG GT (21:31)
[2023-10-14] VITALS (9 sets, daily range): BP systolic 96–146; BP diastolic 64–80; PULSE 63–79; RESP 19–26; TEMP 36.2–36.4; O2SAT 98–100
[2023-10-14] MEDS: IPRATROPIUM/ALBUTEROL 3 ML AMPUL.NEB INH ×4 (01:00→19:15)
[2023-10-14] MEDS: AMLODIPINE 5 MG TABLET GT (09:19)
[2023-10-14] MEDS: FAMOTIDINE 20 MG TABLET GT ×2 (09:20→21:34)
[2023-10-14] MEDS: SENNOSIDES 8.6 MG TABLET GT ×2 (09:20→21:34)
[2023-10-14] MEDS: FUROSEMIDE 20 MG TABLET GT (09:20)
[2023-10-14] MEDS: INSULIN GLARGINE 100 UNIT/ML INSULN.PEN 14 UNIT SC (17:12)
[2023-10-14] MEDS: DOXAZOSIN 2 MG TABLET 4 MG GT (21:34)
[2023-10-15] VITALS (10 sets, daily range): BP systolic 114–144; BP diastolic 67–80; PULSE 65–85; RESP 18–27; TEMP 36.3–36.4; O2SAT 98–100
[2023-10-15] MEDS: IPRATROPIUM/ALBUTEROL 3 ML AMPUL.NEB INH ×4 (01:34→18:25)
[2023-10-15] MEDS: SENNOSIDES 8.6 MG TABLET GT ×2 (08:28→20:10)
[2023-10-15] MEDS: FUROSEMIDE 20 MG TABLET GT (08:28)
[2023-10-15] MEDS: AMLODIPINE 5 MG TABLET GT (08:28)
[2023-10-15] MEDS: FAMOTIDINE 20 MG TABLET GT ×2 (08:28→20:10)
[2023-10-15] MEDS: INSULIN GLARGINE 100 UNIT/ML INSULN.PEN 14 UNIT SC (17:37)
[2023-10-15] MEDS: DOXAZOSIN 2 MG TABLET 4 MG GT (20:09)
--- NOTE | 2023-10-15 22:28 | ESPR_ITS ---
Progress Note - SubAcute SUBJECTIVE Fever:: none Shortness of Breath:: none GI:: no complaints Pain:: none OBJECTIVE Most recent vital signs: Last Vital Signs Temp 97.3 F 10/15/23 17:04 Pulse 67 10/15/23 21:54 Resp 22 H 10/15/23 18:25 BP 120/67 10/15/23 17:04 Pulse Ox 100 10/15/23 21:54 O2 Del Method Mechanical Ventilation 10/13/23 17:56 FiO2 25 10/15/23 21:54 Neurological:: alert (responds to simple commands, shakes hands with his left) Speech:: none Answers questions:: no Respiratory:: shallow breathing Cardiovascular: RRR Abdomen: soft and nontender Extremities:: deformities Decubitus:: improved Tracheostomy:: to ventilator Feeding per:: G tube Complaints:: none ASSESSMENT & PLAN Assessment: Pt. has certainly been awake and eye tracking some, does extend his left hand when offered a hand shake Diagnosis and treatment reviewed. Ventilator settings reviewed. Weaning attempt restarted and are now well tolerated and making progress on Pressure support alone. All else stable, pt fully dependent for care. I had a detailed converiisation with pt's about his status and prognostic outlooks and explained in detail all her questions to which she was thankful even though more saddened by the reality of his condition and unpromising expectations. He shows no improvement in his chronic significant neurological deficit.No new issues Pt's requested Speech evaluation to see if he can swallow anything for some gratification of taste if possible which was so ordered. Now making progress with Ventilator weaning and tolerating pressure support. Making good progress Plan: Current treatment as ongoing. Weaning attempts continued. Family updated
[2023-10-16] VITALS (9 sets, daily range): BP systolic 100–118; BP diastolic 62–67; PULSE 69–84; RESP 17–24; TEMP 36.1–36.6; O2SAT 95–100
[2023-10-16] MEDS: IPRATROPIUM/ALBUTEROL 3 ML AMPUL.NEB INH ×4 (00:45→18:14)
[2023-10-16] MEDS: SENNOSIDES 8.6 MG TABLET GT ×2 (09:05→20:08)
[2023-10-16] MEDS: FUROSEMIDE 20 MG TABLET GT (09:05)
[2023-10-16] MEDS: FAMOTIDINE 20 MG TABLET GT ×2 (09:05→20:08)
--- NOTE | 2023-10-16 17:08 | PC.NURSE ---
Patient was given a full bed bath this morning at 0900 am, TX to toes and buttocks was done, no skin issues noted. Tolerated well.
[2023-10-16] MEDS: INSULIN GLARGINE 100 UNIT/ML INSULN.PEN 14 UNIT SC (17:22)
[2023-10-16] MEDS: DOXAZOSIN 2 MG TABLET 4 MG GT (20:08)
[2023-10-17] VITALS (9 sets, daily range): BP systolic 110–133; BP diastolic 67–82; PULSE 64–80; RESP 16–27; TEMP 35.9–36.4; O2SAT 96–100
[2023-10-17] MEDS: IPRATROPIUM/ALBUTEROL 3 ML AMPUL.NEB INH ×4 (00:06→18:40)
[2023-10-17] MEDS: SENNOSIDES 8.6 MG TABLET GT ×2 (08:47→20:02)
[2023-10-17] MEDS: AMLODIPINE 5 MG TABLET GT (08:47)
[2023-10-17] MEDS: FAMOTIDINE 20 MG TABLET GT ×2 (08:47→20:02)
[2023-10-17] MEDS: FUROSEMIDE 20 MG TABLET GT (08:47)
--- NOTE | 2023-10-17 15:44 | PC.SS ---
Room visit: Resident is here on ventilator with trach in place and GT for medication and nutrition. Resident is unable to make needs known, he does answer simple yes no questions with head nod. His decision maker is his Harper Ferreira. Resident is seen laying in bed well groomed with call light properly placed with no signs of distress with his at bedside. Resident will remain in current care as he continues on vent weaning, staff will continue to meet all subacute care needs.
--- NOTE | 2023-10-17 15:56 | PC.SS ---
This SSD spoke with resident Harper at bedside regarding DC planning and goals. Harper plans on taking resident home once he is off ventilator. Harper would like to have training on trach care and GT care before taking him home. Harper has made contact with [facility] and has started process. This SSD informed Harper we will schedule further meeting to further discuss resident plans to return home with family. IDT meeting will be scheduled for further planning when appropriate.
[2023-10-17] MEDS: INSULIN GLARGINE 100 UNIT/ML INSULN.PEN 14 UNIT SC (17:23)
[2023-10-17] MEDS: DOXAZOSIN 2 MG TABLET 4 MG GT (20:02)
[2023-10-18] VITALS (8 sets, daily range): BP systolic 112–122; BP diastolic 66–75; PULSE 66–85; RESP 18–27; TEMP 36.2–36.7; O2SAT 98–100
[2023-10-18] MEDS: IPRATROPIUM/ALBUTEROL 3 ML AMPUL.NEB INH ×4 (01:10→19:27)
[2023-10-18] MEDS: FUROSEMIDE 20 MG TABLET GT (08:09)
[2023-10-18] MEDS: FAMOTIDINE 20 MG TABLET GT ×2 (08:09→20:11)
[2023-10-18] MEDS: AMLODIPINE 5 MG TABLET GT (08:09)
[2023-10-18] MEDS: SENNOSIDES 8.6 MG TABLET GT ×2 (08:09→20:11)
[2023-10-18] MEDS: INSULIN GLARGINE 100 UNIT/ML INSULN.PEN 14 UNIT SC (17:20)
[2023-10-18] MEDS: DOXAZOSIN 2 MG TABLET 4 MG GT (20:11)
--- NOTE | 2023-10-18 22:43 | PC.RT ---
pt tolerating cpap ps 8/5 hr 75, spo2 98 [id number], will continue to monitor.
[2023-10-19] VITALS (9 sets, daily range): BP systolic 108–126; BP diastolic 68–72; PULSE 68–82; RESP 17–25; TEMP 36.1–37.1; O2SAT 98–100
[2023-10-19] MEDS: IPRATROPIUM/ALBUTEROL 3 ML AMPUL.NEB INH ×4 (01:13→18:10)
[2023-10-19] MEDS: SENNOSIDES 8.6 MG TABLET GT ×2 (08:49→20:00)
[2023-10-19] MEDS: FAMOTIDINE 20 MG TABLET GT ×2 (08:49→20:00)
[2023-10-19] MEDS: AMLODIPINE 5 MG TABLET GT (08:49)
[2023-10-19] MEDS: FUROSEMIDE 20 MG TABLET GT (08:49)
--- NOTE | 2023-10-19 13:30 | ESPR_ITS ---
Progress Note - SubAcute SUBJECTIVE Fever:: none Shortness of Breath:: none GI:: no complaints Pain:: none OBJECTIVE Most recent vital signs: Last Vital Signs Temp 97.4 F 10/23/23 12:00 Pulse 71 10/23/23 12:45 Resp 20 10/23/23 12:45 BP 109/61 10/23/23 12:00 Pulse Ox 98 10/23/23 12:45 O2 Del Method Mechanical Ventilation 10/23/23 06:00 O2 Flow Rate 6 10/23/23 12:45 FiO2 28 10/23/23 12:45 Neurological:: alert (responds to simple commands, shakes hands with his left) Speech:: none Answers questions:: no Respiratory:: shallow breathing Cardiovascular: RRR Abdomen: soft and nontender Extremities:: deformities Decubitus:: improved Tracheostomy:: to ventilator Feeding per:: G tube Complaints:: none ASSESSMENT & PLAN Assessment: Pt. has certainly been awake and eye tracking some, does extend his left hand when offered a hand shake Diagnosis and treatment reviewed. Ventilator settings reviewed. Weaning attempt restarted and are now well tolerated and making progress on Pressure support alone. All else stable, pt fully dependent for care. I had a detailed converiisation with pt's about his status and prognostic outlooks and explained in detail all her questions to which she was thankful even though more saddened by the reality of his condition and unpromising expectations. He shows no improvement in his chronic significant neurological deficit.No new issues Pt's requested Speech evaluation to see if he can swallow anything for some gratification of taste if possible which was so ordered. Now making progress with Ventilator weaning and tolerating pressure support. Making good progress Plan: Current treatment as ongoing. Weaning attempts continued. Family updated
[2023-10-19] MEDS: INSULIN GLARGINE 100 UNIT/ML INSULN.PEN 14 UNIT SC (17:21)
--- NOTE | 2023-10-19 21:47 | PC.RT ---
pt tolerating settings tidal volumes 600s, RR 18-24, spo2 98% will continue to monitor.
[2023-10-20] VITALS (9 sets, daily range): BP systolic 98–136; BP diastolic 62–83; PULSE 75–89; RESP 17–27; TEMP 36.1–36.7; O2SAT 97–100
[2023-10-20] MEDS: IPRATROPIUM/ALBUTEROL 3 ML AMPUL.NEB INH ×4 (00:16→19:21)
[2023-10-20] MEDS: FAMOTIDINE 20 MG TABLET GT ×2 (09:10→21:13)
[2023-10-20] MEDS: FUROSEMIDE 20 MG TABLET GT (09:10)
[2023-10-20] MEDS: SENNOSIDES 8.6 MG TABLET GT ×2 (09:10→21:13)
[2023-10-20] MEDS: INSULIN GLARGINE 100 UNIT/ML INSULN.PEN 14 UNIT SC (17:26)
--- NOTE | 2023-10-20 17:44 | PC.RT ---
Per Dr Joe braxton to keep patient on ps. Order was updated.
[2023-10-20] MEDS: DOXAZOSIN 2 MG TABLET 4 MG GT (21:12)
[2023-10-21] VITALS (9 sets, daily range): BP systolic 100–150; BP diastolic 72–82; PULSE 65–84; RESP 18–24; TEMP 36.1–36.3; O2SAT 98–100
[2023-10-21] MEDS: IPRATROPIUM/ALBUTEROL 3 ML AMPUL.NEB INH ×4 (00:17→19:37)
[2023-10-21] MEDS: AMLODIPINE 5 MG TABLET GT (08:13)
[2023-10-21] MEDS: FAMOTIDINE 20 MG TABLET GT ×2 (08:14→20:08)
[2023-10-21] MEDS: FUROSEMIDE 20 MG TABLET GT (08:14)
[2023-10-21] MEDS: SENNOSIDES 8.6 MG TABLET GT ×2 (08:14→20:08)
[2023-10-21] MEDS: INSULIN GLARGINE 100 UNIT/ML INSULN.PEN 14 UNIT SC (17:14)
[2023-10-21] MEDS: DOXAZOSIN 2 MG TABLET 4 MG GT (20:08)
[2023-10-22] VITALS (10 sets, daily range): BP systolic 100–145; BP diastolic 68–71; PULSE 68–89; RESP 18–23; TEMP 36.4–36.8; O2SAT 98–100
[2023-10-22] MEDS: IPRATROPIUM/ALBUTEROL 3 ML AMPUL.NEB INH ×4 (01:00→20:15)
[2023-10-22] MEDS: AMLODIPINE 5 MG TABLET GT (09:43)
[2023-10-22] MEDS: FAMOTIDINE 20 MG TABLET GT ×2 (09:43→20:52)
[2023-10-22] MEDS: FUROSEMIDE 20 MG TABLET GT (09:44)
[2023-10-22] MEDS: SENNOSIDES 8.6 MG TABLET GT ×2 (09:44→20:52)
--- NOTE | 2023-10-22 11:49 | PC.NURSE ---
RT Freed notified science writer regarding new MD order for transitioning resident from mechanical vent to blow by at this time. Resident will be on trial for BB during the day and on mechanical vent during night hours [id number]. Resident remains on continuous pulse ox. Resident tolerating transition well. Will notify resident's . Monitor resident closely. VS remain stable.
[2023-10-22] MEDS: INSULIN GLARGINE 100 UNIT/ML INSULN.PEN 14 UNIT SC (17:50)
--- NOTE | 2023-10-22 19:16 | PC.NURSE ---
Resident was transitioned from mechanical vent to blowby 6L/28% at about 1120 and has tolerated it well. Resident has been maintaining 02 sat between 99-100%. No SOB or s/s of distress noted. Call light in reach. Will continue with current plan of care.
[2023-10-22] MEDS: DOXAZOSIN 2 MG TABLET 4 MG GT (20:52)
[2023-10-23] VITALS (9 sets, daily range): BP systolic 103–117; BP diastolic 54–72; PULSE 67–84; RESP 19–23; TEMP 35.9–36.3; O2SAT 98–100
[2023-10-23] MEDS: IPRATROPIUM/ALBUTEROL 3 ML AMPUL.NEB INH ×4 (01:25→18:02)
--- NOTE | 2023-10-23 06:39 | PC.NURSE ---
RESIDENT TOLERATED BB AT 6L 28% WITH O2 SATURATION MAINTAINING AT 99%. RT FARM CHANGED RESIDENT BACK TO VENT @ 2240 SPONTANEOUS WITH PS OF 8 AT 25% FI02. NO RESPIRATORY DISTRESS NOTED. RESIDENT ALERT. MAINTAINED O2 SAT 99%.
[2023-10-23] MEDS: SENNOSIDES 8.6 MG TABLET GT ×2 (09:05→20:19)
[2023-10-23] MEDS: AMLODIPINE 5 MG TABLET GT (09:05)
[2023-10-23] MEDS: FUROSEMIDE 20 MG TABLET GT (09:05)
[2023-10-23] MEDS: FAMOTIDINE 20 MG TABLET GT ×2 (09:05→20:19)
--- NOTE | 2023-10-23 11:57 | PC.NURSE ---
Resident received shower today. No new skin issues to report. All txs completed.
--- NOTE | 2023-10-23 13:47 | PC.SS ---
Room visit: Resident is laying in bed with head of the bed elevated with call light properly placed with no signs of distress. Resident is represented by his Harper for all medical decisions. Resident continues to work on vent weaning, on blow by during the day and vent at night with trach in place. Resident has GT in place for medication and nutrition. Resident will remain in current care until goals for DC are met. Resident will remain in current care and will have all needs met for subacute care. This SSD will continue to work with resident and RP on goals for DC. This SSD will assist with DC planning when appropriate.
[2023-10-23] MEDS: INSULIN GLARGINE 100 UNIT/ML INSULN.PEN 14 UNIT SC (17:18)
--- NOTE | 2023-10-23 17:25 | ESPR_ITS ---
Progress Note - SubAcute SUBJECTIVE Fever:: none Shortness of Breath:: none GI:: no complaints Pain:: none OBJECTIVE Most recent vital signs: Last Vital Signs Temp 97.4 F 10/23/23 12:00 Pulse 71 10/23/23 12:45 Resp 20 10/23/23 12:45 BP 109/61 10/23/23 12:00 Pulse Ox 98 10/23/23 12:45 O2 Del Method Mechanical Ventilation 10/23/23 06:00 O2 Flow Rate 6 10/23/23 12:45 FiO2 28 10/23/23 12:45 Neurological:: alert (responds to simple commands, shakes hands with his left) Speech:: none Answers questions:: no Respiratory:: shallow breathing Cardiovascular: RRR Abdomen: soft and nontender Extremities:: deformities Decubitus:: improved Tracheostomy:: to ventilator Feeding per:: G tube Complaints:: none ASSESSMENT & PLAN Assessment: Pt. has certainly been awake and eye tracking some, does extend his left hand when offered a hand shake Diagnosis and treatment reviewed. Ventilator settings reviewed. Weaning attempt restarted and are now well tolerated and making progress on Pressure support alone. All else stable, pt fully dependent for care. I had a detailed converiisation with pt's about his status and prognostic outlooks and explained in detail all her questions to which she was thankful even though more saddened by the reality of his condition and unpromising expectations. He shows no improvement in his chronic significant neurological deficit.No new issues Pt's requested Speech evaluation to see if he can swallow anything for some gratification of taste if possible which was so ordered. Now making progress with Ventilator weaning and tolerating pressure support. Making good progress. Started on blow - by during the day and PS at night Plan: Current treatment as ongoing. Weaning attempts continued. Family updated
[2023-10-23] MEDS: DOXAZOSIN 2 MG TABLET 4 MG GT (20:19)
[2023-10-23] MEDS: ONDANSETRON HCL 4 MG TABLET PO (23:21)
--- NOTE | 2023-10-23 23:25 | PC.RT ---
pt place on cpap ps 8/5 current settings tolerating well.
[2023-10-24] VITALS (8 sets, daily range): BP systolic 95–131; BP diastolic 60–77; PULSE 70–82; RESP 18–23; TEMP 36.2–36.4; O2SAT 97–100
[2023-10-24] MEDS: IPRATROPIUM/ALBUTEROL 3 ML AMPUL.NEB INH ×4 (07:10→18:10)
[2023-10-24] MEDS: FAMOTIDINE 20 MG TABLET GT ×2 (08:08→20:18)
[2023-10-24] MEDS: SENNOSIDES 8.6 MG TABLET GT ×2 (08:08→20:18)
[2023-10-24] MEDS: FUROSEMIDE 20 MG TABLET GT (08:08)
[2023-10-24] MEDS: INSULIN GLARGINE 100 UNIT/ML INSULN.PEN 14 UNIT SC (18:00)
[2023-10-24] MEDS: DOXAZOSIN 2 MG TABLET 4 MG GT (20:18)
[2023-10-25] VITALS (9 sets, daily range): BP systolic 98–112; BP diastolic 58–73; PULSE 70–90; RESP 18–21; TEMP 36.2–36.7; O2SAT 98–100
[2023-10-25] MEDS: IPRATROPIUM/ALBUTEROL 3 ML AMPUL.NEB INH ×4 (00:20→18:30)
--- NOTE | 2023-10-25 01:11 | PC.NURSE ---
Resident tolerating BB on 6L 28%, saturation maintaining at 99%-100%, Resident was placed back on vent by RT on spontaneous with PS of 8 at 25% Fio2, no s/s of distress at this time, HOB elevated, call light within reach.
[2023-10-25] MEDS: FUROSEMIDE 20 MG TABLET GT (08:00)
[2023-10-25] MEDS: FAMOTIDINE 20 MG TABLET GT ×2 (08:00→20:00)
[2023-10-25] MEDS: SENNOSIDES 8.6 MG TABLET GT ×2 (08:01→20:00)
[2023-10-25] MEDS: INSULIN GLARGINE 100 UNIT/ML INSULN.PEN 14 UNIT SC (17:03)
[2023-10-25] MEDS: DOXAZOSIN 2 MG TABLET 4 MG GT (20:00)
[2023-10-26] VITALS (10 sets, daily range): BP systolic 97–180; BP diastolic 64–90; PULSE 68–78; RESP 12–23; TEMP 36.2–36.3; O2SAT 98–100
[2023-10-26] MEDS: IPRATROPIUM/ALBUTEROL 3 ML AMPUL.NEB INH ×4 (01:10→18:20)
[2023-10-26] MEDS: AMLODIPINE 5 MG TABLET GT (09:11)
[2023-10-26] MEDS: SENNOSIDES 8.6 MG TABLET GT ×2 (09:12→20:55)
[2023-10-26] MEDS: FAMOTIDINE 20 MG TABLET GT ×2 (09:12→20:54)
[2023-10-26] MEDS: FUROSEMIDE 20 MG TABLET GT (09:12)
[2023-10-26] MEDS: INSULIN GLARGINE 100 UNIT/ML INSULN.PEN 14 UNIT SC (17:26)
[2023-10-26] MEDS: DOXAZOSIN 2 MG TABLET 4 MG GT (20:54)
[2023-10-27] VITALS (9 sets, daily range): BP systolic 106–133; BP diastolic 65–73; PULSE 70–77; RESP 20–24; TEMP 36.4–36.7; O2SAT 98–100
[2023-10-27] MEDS: IPRATROPIUM/ALBUTEROL 3 ML AMPUL.NEB INH ×4 (00:22→18:20)
[2023-10-27] MEDS: AMLODIPINE 5 MG TABLET GT (08:16)
[2023-10-27] MEDS: FAMOTIDINE 20 MG TABLET GT ×2 (08:17→20:52)
[2023-10-27] MEDS: FUROSEMIDE 20 MG TABLET GT (08:17)
[2023-10-27] MEDS: SENNOSIDES 8.6 MG TABLET GT ×2 (08:18→20:52)
[2023-10-27] MEDS: INSULIN GLARGINE 100 UNIT/ML INSULN.PEN 14 UNIT SC (17:36)
[2023-10-27] MEDS: DOXAZOSIN 2 MG TABLET 4 MG GT (20:52)
--- NOTE | 2023-10-27 22:19 | ESPR_ITS ---
Progress Note - SubAcute SUBJECTIVE Fever:: none Shortness of Breath:: none GI:: no complaints Pain:: none OBJECTIVE Most recent vital signs: Last Vital Signs Temp 97.9 F 10/27/23 18:00 Pulse 72 10/27/23 18:20 Resp 20 10/27/23 18:20 BP 122/73 10/27/23 18:00 Pulse Ox 100 10/27/23 18:20 O2 Del Method Mechanical Ventilation 10/26/23 05:56 O2 Flow Rate 6 10/27/23 18:20 FiO2 28 10/27/23 18:20 Neurological:: alert (responds to simple commands, shakes hands with his left) Speech:: none Answers questions:: no Respiratory:: shallow breathing Cardiovascular: RRR Abdomen: soft and nontender Extremities:: deformities Decubitus:: improved Tracheostomy:: to ventilator Feeding per:: G tube Complaints:: none ASSESSMENT & PLAN Assessment: Pt. has certainly been awake and eye tracking some, does extend his left hand when offered a hand shake Diagnosis and treatment reviewed. Ventilator settings reviewed. Weaning attempt restarted and are now well tolerated and making progress on Pressure sup port alone. All else stable, pt fully dependent for care. I had a detailed converiisation with pt's about his status and prognostic outlooks and explained in detail all her questions to which she was thankful even though more saddened by the reality of his condition and unpromising expectations. He shows no improvement in his chronic significant neurological deficit.No new issues Pt's requested Speech evaluation to see if he can swallow anything for some gratification of taste if possible which was so ordered. Now making progress with Ventilator weaning and tolerating pressure support. Making good progress. Started on blow - by during the day and PS at night Plan: Current treatment as ongoing. Weaning attempts continued. Family updated
[2023-10-28] VITALS (10 sets, daily range): BP systolic 107–138; BP diastolic 67–78; PULSE 63–81; RESP 18–20; TEMP 36–36.3; O2SAT 97–100
[2023-10-28] MEDS: IPRATROPIUM/ALBUTEROL 3 ML AMPUL.NEB INH ×4 (00:41→18:30)
[2023-10-28] MEDS: FAMOTIDINE 20 MG TABLET GT ×2 (08:32→20:04)
[2023-10-28] MEDS: AMLODIPINE 5 MG TABLET GT (08:32)
[2023-10-28] MEDS: SENNOSIDES 8.6 MG TABLET GT ×2 (08:32→20:05)
[2023-10-28] MEDS: FUROSEMIDE 20 MG TABLET GT (08:32)
[2023-10-28] MEDS: INSULIN GLARGINE 100 UNIT/ML INSULN.PEN 14 UNIT SC (16:52)
[2023-10-28] MEDS: INSULIN REGULAR, HUMAN 100 UNIT/ML VIAL SC (16:53)
--- NOTE | 2023-10-28 18:57 | PC.NURSE ---
RT Salome discussed with during IDT meeting regarding weaning resident off ventilator at night. Order to place resident on blow by during day and nights. RT will proceed with this order. Resident has been tolerating weaning well. continues on continous pulse ox O2 sat 98%.
[2023-10-29] VITALS (9 sets, daily range): BP systolic 111–133; BP diastolic 67–75; PULSE 65–105; RESP 20–22; TEMP 36.1–36.6; O2SAT 96–100
[2023-10-29] MEDS: IPRATROPIUM/ALBUTEROL 3 ML AMPUL.NEB INH ×4 (01:15→19:00)
[2023-10-29] MEDS: AMLODIPINE 5 MG TABLET GT (09:00)
[2023-10-29] MEDS: FUROSEMIDE 20 MG TABLET GT (09:01)
[2023-10-29] MEDS: SENNOSIDES 8.6 MG TABLET GT ×2 (09:01→20:44)
[2023-10-29] MEDS: FAMOTIDINE 20 MG TABLET GT ×2 (09:01→20:44)
--- NOTE | 2023-10-29 17:08 | PC.NURSE ---
Resident on x 3 days trial blowby and placing mechanical ventilator at bedside as per report and what they've discussed in the IDT yesterday. No mechanical ventilator at bedside. Mechanical ventilator was discontinued today as per RT, so they took it. Made aware of the IDT's discussion that mechanical vent be at bedside. They'll bring back the vent when resident needs it per RT
[2023-10-29] MEDS: INSULIN GLARGINE 100 UNIT/ML INSULN.PEN 14 UNIT SC (17:54)
[2023-10-29] MEDS: ONDANSETRON HCL 4 MG TABLET PO (23:22)
[2023-10-30] VITALS (9 sets, daily range): BP systolic 98–152; BP diastolic 61–93; PULSE 63–79; RESP 18–20; TEMP 36.1–36.4; O2SAT 99–100
[2023-10-30] MEDS: IPRATROPIUM/ALBUTEROL 3 ML AMPUL.NEB INH ×4 (00:30→17:35)
[2023-10-30] MEDS: FUROSEMIDE 20 MG TABLET GT (08:03)
[2023-10-30] MEDS: SENNOSIDES 8.6 MG TABLET GT ×2 (08:03→20:42)
[2023-10-30] MEDS: FAMOTIDINE 20 MG TABLET GT ×2 (08:03→20:42)
[2023-10-30] MEDS: AMLODIPINE 5 MG TABLET GT (08:03)
--- NOTE | 2023-10-30 12:37 | PC.NURSE ---
Resident was seen by [facility] dentist, no new orders made.
--- NOTE | 2023-10-30 14:59 | PC.SS ---
Resident seen by DDS/Dr. Jackson for consultation, see DDS services notes for recommendations. SSD to follow up with recommendations. Resident tolerated treatment well, to continue current care.
[2023-10-30] MEDS: INSULIN GLARGINE 100 UNIT/ML INSULN.PEN 14 UNIT SC (17:11)
[2023-10-30] MEDS: DOXAZOSIN 2 MG TABLET 4 MG GT (20:42)
[2023-10-30] MEDS: CARBAMIDE PEROXIDE OTIC SOL 15 ML BTL 5 DROP BOTH EARS (20:42)
[2023-10-31] VITALS (8 sets, daily range): BP systolic 99–126; BP diastolic 57–78; PULSE 67–78; RESP 18–20; TEMP 36.1–36.8; O2SAT 99–100
[2023-10-31] MEDS: IPRATROPIUM/ALBUTEROL 3 ML AMPUL.NEB INH ×4 (01:16→18:00)
[2023-10-31] MEDS: FUROSEMIDE 20 MG TABLET GT (09:26)
[2023-10-31] MEDS: FAMOTIDINE 20 MG TABLET GT ×2 (09:26→20:02)
[2023-10-31] MEDS: SENNOSIDES 8.6 MG TABLET GT ×2 (09:27→20:02)
--- NOTE | 2023-10-31 13:30 | ESPR_ITS ---
Progress Note - SubAcute SUBJECTIVE Fever:: none Shortness of Breath:: none GI:: no complaints Pain:: none OBJECTIVE Most recent vital signs: Last Vital Signs Temp 97.4 F 11/02/23 05:05 Pulse 72 11/02/23 09:05 Resp 20 11/02/23 06:00 BP 118/76 11/02/23 09:05 Pulse Ox 95 11/02/23 06:00 O2 Del Method Blow-by 11/01/23 17:38 O2 Flow Rate 6 11/02/23 06:00 FiO2 28 11/02/23 06:00 Neurological:: alert (responds to simple commands, shakes hands with his left) Speech:: none Answers questions:: no Respiratory:: shallow breathing Cardiovascular: RRR Abdomen: soft and nontender Extremities:: deformities Decubitus:: improved Tracheostomy:: to ventilator Feeding per:: G tube Complaints:: none ASSESSMENT & PLAN Assessment: Pt. has certainly been awake and eye tracking some, does extend his left hand w hen offered a hand shake Diagnosis and treatment reviewed. Ventilator settings reviewed. Weaning attempt restarted and are now well tolerated and making progress on Pressure support alone. All else stable, pt fully dependent for care. I had a detailed converiisation with pt's about his status and prognostic outlooks and explained in detail all her questions to which she was thankful even though more saddened by the reality of his condition and unpromising expectations. He shows no improvement in his chronic significant neurological deficit.No new issues Pt's requested Speech evaluation to see if he can swallow anything for some gratification of taste if possible which was so ordered. Now making progress with Ventilator weaning and tolerating pressure support. Making good progress. Started on blow - by during the day and PS at night. Now pt is weaned off the ventilator and is on blow by and stable Plan: Current treatment as ongoing. Weaning attempts continued. Family updated
--- NOTE | 2023-10-31 14:28 | PC.NURSE ---
Late entry for 10/30/23. Resident is bed bound, totally dependent with ADLS. Staff observed he leans on his right side, order received for side rail x1 upper. Called resident's and made aware.
--- NOTE | 2023-10-31 14:41 | PC.NURSE ---
Resident noted to be bed bound with severely contracted lower extremities, with and order for PT eval if safe for resident to be transferred and sit in a ifeanyi chair. When staffs attempts to transfer resident using a shakir lift, it hits resident's left knee. Seen by PT, forced stretching will put resident at risk for tears. No orders received.
[2023-10-31] MEDS: INSULIN GLARGINE 100 UNIT/ML INSULN.PEN 14 UNIT SC (17:28)
[2023-11-01] VITALS (9 sets, daily range): BP systolic 108–128; BP diastolic 68–76; PULSE 66–80; RESP 18–20; TEMP 36–36.2; O2SAT 97–100
[2023-11-01] MEDS: IPRATROPIUM/ALBUTEROL 3 ML AMPUL.NEB INH ×4 (00:45→18:28)
[2023-11-01] MEDS: FAMOTIDINE 20 MG TABLET GT ×2 (10:12→20:16)
[2023-11-01] MEDS: SENNOSIDES 8.6 MG TABLET GT ×2 (10:13→20:16)
[2023-11-01] MEDS: FUROSEMIDE 20 MG TABLET GT (10:13)
[2023-11-01] MEDS: INSULIN GLARGINE 100 UNIT/ML INSULN.PEN 14 UNIT SC (17:36)
[2023-11-01] MEDS: DOXAZOSIN 2 MG TABLET 4 MG GT (20:15)
[2023-11-02] VITALS (9 sets, daily range): BP systolic 99–118; BP diastolic 53–76; PULSE 68–84; RESP 18–20; TEMP 36–36.5; O2SAT 95–100
[2023-11-02] MEDS: IPRATROPIUM/ALBUTEROL 3 ML AMPUL.NEB INH ×4 (01:35→18:15)
[2023-11-02] MEDS: INSULIN REGULAR, HUMAN 100 UNIT/ML VIAL SC (05:32)
[2023-11-02] MEDS: AMLODIPINE 5 MG TABLET GT (09:05)
[2023-11-02] MEDS: FAMOTIDINE 20 MG TABLET GT ×2 (09:06→20:28)
[2023-11-02] MEDS: SENNOSIDES 8.6 MG TABLET GT ×2 (09:06→20:28)
[2023-11-02] MEDS: FUROSEMIDE 20 MG TABLET GT (09:06)
[2023-11-02] MEDS: INSULIN GLARGINE 100 UNIT/ML INSULN.PEN 14 UNIT SC (17:52)
[2023-11-02] MEDS: DOXAZOSIN 2 MG TABLET 4 MG GT (20:27)
[2023-11-03] VITALS (9 sets, daily range): BP systolic 96–142; BP diastolic 61–77; PULSE 68–77; RESP 16–18; TEMP 36.1–36.4; O2SAT 96–100
[2023-11-03] MEDS: IPRATROPIUM/ALBUTEROL 3 ML AMPUL.NEB INH ×4 (01:50→18:50)
[2023-11-03] MEDS: FAMOTIDINE 20 MG TABLET GT ×2 (09:11→20:37)
[2023-11-03] MEDS: FUROSEMIDE 20 MG TABLET GT (09:11)
[2023-11-03] MEDS: SENNOSIDES 8.6 MG TABLET GT ×2 (09:11→20:37)
[2023-11-03] MEDS: AMLODIPINE 5 MG TABLET GT (09:11)
[2023-11-03] MEDS: INSULIN REGULAR, HUMAN 100 UNIT/ML VIAL SC (17:08)
[2023-11-03] MEDS: INSULIN GLARGINE 100 UNIT/ML INSULN.PEN 14 UNIT SC (17:09)
[2023-11-03] MEDS: DOXAZOSIN 2 MG TABLET 4 MG GT (20:37)
[2023-11-04] VITALS (8 sets, daily range): BP systolic 105–143; BP diastolic 65–87; PULSE 66–77; RESP 16–18; TEMP 36.1–36.6; O2SAT 97–100
[2023-11-04] MEDS: IPRATROPIUM/ALBUTEROL 3 ML AMPUL.NEB INH ×4 (01:10→18:45)
[2023-11-04] MEDS: FAMOTIDINE 20 MG TABLET GT ×2 (08:01→20:10)
[2023-11-04] MEDS: SENNOSIDES 8.6 MG TABLET GT ×2 (08:01→20:10)
[2023-11-04] MEDS: FUROSEMIDE 20 MG TABLET GT (08:01)
--- NOTE | 2023-11-04 13:10 | ESPR_ITS ---
Progress Note - SubAcute SUBJECTIVE Fever:: none Shortness of Breath:: none GI:: no complaints Pain:: none OBJECTIVE Most recent vital signs: Last Vital Signs Temp 97.7 F 11/05/23 05:50 Pulse 76 11/05/23 17:35 Resp 18 11/05/23 17:35 BP 113/75 11/05/23 08:24 Pulse Ox 100 11/05/23 17:35 O2 Del Method Blow-by 11/04/23 18:00 O2 Flow Rate 6 11/05/23 17:35 FiO2 28 11/05/23 17:35 Neurological:: alert (responds to simple commands, shakes hands with his left) Speech:: none Answers questions:: no Respiratory:: shallow breathing Cardiovascular: RRR Abdomen: soft and nontender Extremities:: deformities Decubitus:: improved Tracheostomy:: to ventilator Feeding per:: G tube Complaints:: none ASSESSMENT & PLAN Assessment: Pt. has certainly been awake and eye tracking some, does extend his left hand when offered a hand shake Diagnosis and treatment reviewed. Ventilator settings reviewed. Weaning attempt restarted and are now well tolerated and making progress on Pressure support alone. All else stable, pt fully dependent for care. I had a detailed converiisation with pt's about his status and prognostic outlooks and explained in detail all her questions to which she was thankful even though more saddened by the reality of his condition and unpromising expectations. He shows no improvement in his chronic significant neurological deficit.No new issues Pt's requested Speech evaluation to see if he can swallow anything for some gratification of taste if possible which was so ordered. Now making progress with Ventilator weaning and tolerating pressure support. Making good progress. Started on blow - by during the day and PS at night. Now pt is weaned off the ventilator and is on blow by and stable Plan: Current treatment as ongoing. Weaning attempts continued. Family updated
[2023-11-04] MEDS: INSULIN GLARGINE 100 UNIT/ML INSULN.PEN 14 UNIT SC (18:12)
[2023-11-04] MEDS: DOXAZOSIN 2 MG TABLET 4 MG GT (20:09)
[2023-11-05] VITALS (7 sets, daily range): BP systolic 105–124; BP diastolic 68–75; PULSE 67–76; RESP 16–18; TEMP 36.5; O2SAT 100
[2023-11-05] MEDS: IPRATROPIUM/ALBUTEROL 3 ML AMPUL.NEB INH ×4 (01:40→17:35)
[2023-11-05] MEDS: AMLODIPINE 5 MG TABLET GT (08:24)
[2023-11-05] MEDS: SENNOSIDES 8.6 MG TABLET GT ×2 (08:25→20:05)
[2023-11-05] MEDS: FUROSEMIDE 20 MG TABLET GT (08:25)
[2023-11-05] MEDS: FAMOTIDINE 20 MG TABLET GT ×2 (08:25→20:05)
[2023-11-05] MEDS: INSULIN GLARGINE 100 UNIT/ML INSULN.PEN 14 UNIT SC (17:38)
[2023-11-06] VITALS (9 sets, daily range): BP systolic 99–153; BP diastolic 61–72; PULSE 65–76; RESP 18–20; TEMP 36.2–36.6; O2SAT 97–100
[2023-11-06] MEDS: IPRATROPIUM/ALBUTEROL 3 ML AMPUL.NEB INH ×4 (00:49→18:58)
[2023-11-06] MEDS: FUROSEMIDE 20 MG TABLET GT (09:20)
[2023-11-06] MEDS: SENNOSIDES 8.6 MG TABLET GT ×2 (09:20→20:52)
[2023-11-06] MEDS: FAMOTIDINE 20 MG TABLET GT ×2 (09:20→20:52)
[2023-11-06] MEDS: INSULIN GLARGINE 100 UNIT/ML INSULN.PEN 14 UNIT SC (17:00)
--- NOTE | 2023-11-06 20:06 | ESPR_ITS ---
Progress Note - SubAcute SUBJECTIVE Fever:: none Shortness of Breath:: none GI:: no complaints Pain:: none OBJECTIVE Most recent vital signs: Last Vital Signs Temp 97.8 F 11/06/23 17:23 Pulse 70 11/06/23 17:23 Resp 18 11/06/23 17:23 BP 112/66 11/06/23 17:23 Pulse Ox 100 11/06/23 11:32 O2 Del Method Blow-by 11/04/23 18:00 O2 Flow Rate 6 11/06/23 11:32 FiO2 28 11/06/23 11:32 Neurological:: alert (responds to simple commands, shakes hands with his left) Speech:: none Answers questions:: no Respiratory:: shallow breathing Cardiovascular: RRR Abdomen: soft and nontender Extremities:: deformities Decubitus:: improved Tracheostomy:: to ventilator Feeding per:: G tube Complaints:: none ASSESSMENT & PLAN Assessment: Pt. has certainly been awake and eye tracking some, does extend his left hand when offered a hand shake Diagnosis and treatment reviewed. Ventilator settings reviewed. Weaning attempt restarted and are now well tolerated and making progress on Pressure support alone. All else stable, pt fully dependent for care. I had a detailed converiisation with pt's about his status and prognostic outlooks and explained in detail all her questions to which she was thankful even though more saddened by the reality of his condition and unpromising expectations. He shows no improvement in his chronic significant neurological deficit.No new issues Pt's requested Speech evaluation to see if he can swallow anything for some gratification of taste if possible which was so ordered. Now making progress with Ventilator weaning and tolerating pressure support. Making good progress. Started on blow - by during the day and PS at night. Now pt is weaned off the ventilator and is on blow by and stable Plan: Current treatment as ongoing. Weaning attempts continued. Family updated
[2023-11-06] MEDS: DOXAZOSIN 2 MG TABLET 4 MG GT (20:51)
[2023-11-07] VITALS (8 sets, daily range): BP systolic 111–133; BP diastolic 55–81; PULSE 65–77; RESP 18–20; TEMP 36.3–36.4; O2SAT 97–100
[2023-11-07] MEDS: IPRATROPIUM/ALBUTEROL 3 ML AMPUL.NEB INH ×4 (01:18→18:15)
[2023-11-07] MEDS: AMLODIPINE 5 MG TABLET GT (08:19)
[2023-11-07] MEDS: FUROSEMIDE 20 MG TABLET GT (08:23)
[2023-11-07] MEDS: FAMOTIDINE 20 MG TABLET GT ×2 (08:23→20:14)
[2023-11-07] MEDS: SENNOSIDES 8.6 MG TABLET GT ×2 (08:23→20:14)
[2023-11-07] MEDS: ACETAMINOPHEN 325 MG TABLET 650 MG GT ×2 (13:30→20:14)
--- NOTE | 2023-11-07 14:58 | PC.SS ---
Resident remains on blow by with trach in place, he is tolerating it well. He has GT in place for medication and nutrition. He is able to answer simple yes no questions with head nod. Resident Harper plans on taking him home, she has applied for [facility] and will be planning for training in facility before taking him home. This SSD will assist as appropriate.
[2023-11-07] MEDS: INSULIN GLARGINE 100 UNIT/ML INSULN.PEN 14 UNIT SC (17:36)
[2023-11-08] VITALS (9 sets, daily range): BP systolic 107–128; BP diastolic 64–75; PULSE 74–79; RESP 16–20; TEMP 35.9–36.3; O2SAT 97–100
[2023-11-08] MEDS: IPRATROPIUM/ALBUTEROL 3 ML AMPUL.NEB INH ×4 (01:30→18:20)
[2023-11-08] MEDS: SENNOSIDES 8.6 MG TABLET GT ×2 (09:10→20:23)
[2023-11-08] MEDS: FAMOTIDINE 20 MG TABLET GT ×2 (09:10→20:23)
[2023-11-08] MEDS: FUROSEMIDE 20 MG TABLET GT (09:10)
[2023-11-08] MEDS: INSULIN GLARGINE 100 UNIT/ML INSULN.PEN 14 UNIT SC (17:20)
[2023-11-08] MEDS: DOXAZOSIN 2 MG TABLET 4 MG GT (20:23)
[2023-11-09] VITALS (10 sets, daily range): BP systolic 103–127; BP diastolic 62–73; PULSE 40–82; RESP 16–18; TEMP 36.1–36.5; O2SAT 97–100
[2023-11-09] MEDS: IPRATROPIUM/ALBUTEROL 3 ML AMPUL.NEB INH ×4 (00:59→18:29)
[2023-11-09] MEDS: FUROSEMIDE 20 MG TABLET GT (08:51)
[2023-11-09] MEDS: FAMOTIDINE 20 MG TABLET GT ×2 (08:51→21:03)
[2023-11-09] MEDS: SENNOSIDES 8.6 MG TABLET GT ×2 (08:51→21:03)
[2023-11-09] MEDS: INSULIN GLARGINE 100 UNIT/ML INSULN.PEN 14 UNIT SC (17:15)
[2023-11-09] MEDS: DOXAZOSIN 2 MG TABLET 4 MG GT (21:03)
[2023-11-10] VITALS (8 sets, daily range): BP systolic 98–118; BP diastolic 60–77; PULSE 69–89; RESP 18–20; TEMP 36.1–36.6; O2SAT 98–100
[2023-11-10] MEDS: IPRATROPIUM/ALBUTEROL 3 ML AMPUL.NEB INH ×4 (01:11→19:20)
[2023-11-10] MEDS: FAMOTIDINE 20 MG TABLET GT ×2 (09:23→20:03)
[2023-11-10] MEDS: FUROSEMIDE 20 MG TABLET GT (09:24)
[2023-11-10] MEDS: SENNOSIDES 8.6 MG TABLET GT ×2 (09:24→20:03)
--- NOTE | 2023-11-10 11:38 | PC.IP ---
ST Wells requested an order for PMV trials to be used on resident since he is now on Blow by. ST working with him. shared her plans to do a modify swallow test. Will notify MD and obtain order.
--- NOTE | 2023-11-10 13:01 | PC.NURSE ---
ST Watts recommendation for the use of PMV on resident. Notified Dr. YUNI agreed and consented to use PMV with supervision and as needed. Also a modify swallow eval to be done for resident. some time this week. as per Stefanie.
[2023-11-10] MEDS: INSULIN GLARGINE 100 UNIT/ML INSULN.PEN 14 UNIT SC (17:24)
[2023-11-10] MEDS: DOXAZOSIN 2 MG TABLET 4 MG GT (20:02)
[2023-11-11] VITALS (10 sets, daily range): BP systolic 99–144; BP diastolic 66–75; PULSE 68–82; RESP 18–20; TEMP 35.8–36.7; O2SAT 98–100
[2023-11-11] MEDS: IPRATROPIUM/ALBUTEROL 3 ML AMPUL.NEB INH ×4 (01:50→18:19)
[2023-11-11] MEDS: FUROSEMIDE 20 MG TABLET GT (09:38)
[2023-11-11] MEDS: FAMOTIDINE 20 MG TABLET GT ×2 (09:38→20:42)
[2023-11-11] MEDS: SENNOSIDES 8.6 MG TABLET GT ×2 (09:38→20:42)
[2023-11-11] MEDS: AMLODIPINE 5 MG TABLET GT (09:38)
[2023-11-11] MEDS: INSULIN GLARGINE 100 UNIT/ML INSULN.PEN 14 UNIT SC (17:03)
[2023-11-11] MEDS: DOXAZOSIN 2 MG TABLET 4 MG GT (20:42)
--- NOTE | 2023-11-11 22:52 | ESPR_ITS ---
Progress Note - SubAcute SUBJECTIVE Fever:: none Shortness of Breath:: none GI:: no complaints Pain:: none OBJECTIVE Most recent vital signs: Last Vital Signs Temp 97.4 F 11/11/23 17:52 Pulse 76 11/11/23 17:52 Resp 18 11/11/23 17:52 BP 104/74 11/11/23 17:52 Pulse Ox 98 11/11/23 17:52 O2 Del Method Blow-by 11/10/23 17:50 O2 Flow Rate 6 11/11/23 14:57 FiO2 28 11/11/23 14:57 Neurological:: alert (responds to simple commands, shakes hands with his left) Speech:: none Answers questions:: no Respiratory:: shallow breathing Cardiovascular: RRR Abdomen: soft and nontender Extremities:: deformities Decubitus:: improved Tracheostomy:: to ventilator Feeding per:: G tube Complaints:: none ASSESSMENT & PLAN Assessment: Pt. has certainly been awake and eye tracking some, does extend his left hand w hen offered a hand shake Diagnosis and treatment reviewed. Ventilator settings reviewed. Weaning attempt restarted and are now well tolerated and making progress on Pressure support alone. All else stable, pt fully dependent for care. I had a detailed converiisation with pt's about his status and prognostic outlooks and explained in detail all her questions to which she was thankful even though more saddened by the reality of his condition and unpromising expectations. He shows no improvement in his chronic significant neurological deficit.No new issues Pt's requested Speech evaluation to see if he can swallow anything for some gratification of taste if possible which was so ordered. Now making progress with Ventilator weaning and tolerating pressure support. Making good progress. Started on blow - by during the day and PS at night. Now pt is weaned off the ventilator and is on blow by and stable. Discussed with speech tech. at IDT to use supervised Speech valve [place] to help swallowing for recreational eating if tolerated towards the general plan for possible discharge home in near future Plan: Current treatment as ongoing. Weaning attempts continued. Family updated
[2023-11-12] VITALS (10 sets, daily range): BP systolic 100–126; BP diastolic 64–66; PULSE 71–81; RESP 17–28; TEMP 36.1–36.3; O2SAT 89–100; BMI 27.1
[2023-11-12] MEDS: IPRATROPIUM/ALBUTEROL 3 ML AMPUL.NEB INH ×4 (01:34→18:18)
[2023-11-12] MEDS: FUROSEMIDE 20 MG TABLET GT (08:00)
[2023-11-12] MEDS: FAMOTIDINE 20 MG TABLET GT ×2 (08:00→21:06)
[2023-11-12] MEDS: SENNOSIDES 8.6 MG TABLET GT ×2 (08:00→21:06)
--- NOTE | 2023-11-12 14:47 | PC.RT ---
PMV trial. Patient only tolerated 3min then Began desating. Patient placed back on blow by
--- NOTE | 2023-11-12 16:00 | PC.SS ---
DC Planning: This SSD met with resident Harper to discuss DC planning. Harper has asked for resident to return home in December, resident will DC on December 21. Harper made aware she will need to pay for transport to home and has agreed to [facility]. she stated she would like resident to return home soon as their son is getting in February. Resident will need bed, w/chair, mechanical lift ordered. Resident will have home health ordered, with [facility] per family preference. Resident will continue to work with RT and ST on respiratory goals before returning home. Harper made aware she will need to come in regularly to facility to be trained by staff for caring for resident at home. She will need to schedule appointment with PCP once he returns home. This SSD will continue to make contact with resident and assist with DC planning.
[2023-11-12] MEDS: INSULIN GLARGINE 100 UNIT/ML INSULN.PEN 14 UNIT SC (17:59)
[2023-11-12] MEDS: DOXAZOSIN 2 MG TABLET 4 MG GT (21:06)
[2023-11-13] VITALS (9 sets, daily range): BP systolic 103–117; BP diastolic 60–77; PULSE 19–85; RESP 16–69; TEMP 36.2–36.8; O2SAT 99–100; BMI 27.1
[2023-11-13] MEDS: IPRATROPIUM/ALBUTEROL 3 ML AMPUL.NEB INH ×4 (00:32→18:15)
[2023-11-13] MEDS: FUROSEMIDE 20 MG TABLET GT (09:41)
[2023-11-13] MEDS: SENNOSIDES 8.6 MG TABLET GT ×2 (09:41→20:55)
[2023-11-13] MEDS: FAMOTIDINE 20 MG TABLET GT ×2 (09:41→20:55)
[2023-11-13] MEDS: INSULIN GLARGINE 100 UNIT/ML INSULN.PEN 14 UNIT SC (17:01)
[2023-11-13] MEDS: DOXAZOSIN 2 MG TABLET 4 MG GT (20:55)
[2023-11-14] VITALS (11 sets, daily range): BP systolic 105–116; BP diastolic 64–77; PULSE 68–80; RESP 17–25; TEMP 35.9–36.1; O2SAT 95–100
[2023-11-14] MEDS: IPRATROPIUM/ALBUTEROL 3 ML AMPUL.NEB INH ×4 (00:30→18:33)
[2023-11-14] MEDS: SENNOSIDES 8.6 MG TABLET GT ×2 (08:19→20:05)
[2023-11-14] MEDS: FAMOTIDINE 20 MG TABLET GT ×2 (08:19→20:05)
[2023-11-14] MEDS: FUROSEMIDE 20 MG TABLET GT (08:19)
[2023-11-14] MEDS: AMLODIPINE 5 MG TABLET GT (08:19)
--- NOTE | 2023-11-14 12:18 | PC.SS ---
Room visit: Resident is laying in bed with head of the bed elevated with call light properly placed with no signs of distress. Resident conitnues to work with ST and RT for DC goals. He remains on blow by with trach in place and GT for medication and nutrition. He will continue to have all subacute care needs met by staff until appropriate for DC to home.
[2023-11-14] MEDS: INSULIN GLARGINE 100 UNIT/ML INSULN.PEN 14 UNIT SC (17:26)
[2023-11-14] MEDS: DOXAZOSIN 2 MG TABLET 4 MG GT (20:05)
[2023-11-15] VITALS (10 sets, daily range): BP systolic 99–126; BP diastolic 65–79; PULSE 66–73; RESP 16–18; TEMP 36–36.3; O2SAT 98–100
[2023-11-15] MEDS: IPRATROPIUM/ALBUTEROL 3 ML AMPUL.NEB INH ×4 (01:13→18:15)
[2023-11-15] MEDS: FAMOTIDINE 20 MG TABLET GT ×2 (09:22→21:03)
[2023-11-15] MEDS: FUROSEMIDE 20 MG TABLET GT (09:23)
[2023-11-15] MEDS: SENNOSIDES 8.6 MG TABLET GT ×2 (09:24→21:03)
[2023-11-15] MEDS: INSULIN GLARGINE 100 UNIT/ML INSULN.PEN 14 UNIT SC (17:08)
[2023-11-15] MEDS: DOXAZOSIN 2 MG TABLET 4 MG GT (21:03)
--- NOTE | 2023-11-15 23:30 | ESPR_ITS ---
Progress Note - SubAcute SUBJECTIVE Fever:: none Shortness of Breath:: none GI:: no complaints Pain:: none OBJECTIVE Most recent vital signs: Last Vital Signs Temp 97.2 F 11/15/23 18:00 Pulse 71 11/15/23 18:15 Resp 16 11/15/23 18:15 BP 101/66 11/15/23 18:00 Pulse Ox 100 11/15/23 18:15 O2 Del Method Blow-by 11/15/23 18:00 O2 Flow Rate 6 11/15/23 18:15 FiO2 28 11/15/23 18:15 Neurological:: alert (responds to simple commands, shakes hands with his left) Speech:: none Answers questions:: no Respiratory:: shallow breathing Cardiovascular: RRR Abdomen: soft and nontender Extremities:: deformities Decubitus:: improved Tracheostomy:: to ventilator Feeding per:: G tube Complaints:: none ASSESSMENT & PLAN Assessment: Pt. has certainly been awake and eye tracking some, does extend his left hand when offered a hand shake Diagnosis and treatment reviewed. Ventilator settings reviewed. Weaning attempt restarted and are now well tolerated and making progress on Pressure support alone. All else stable, pt fully dependent for care. I had a detailed converiisation with pt's about his status and prognostic outlooks and explained in detail all her questions to which she was thankful even though more saddened by the reality of his condition and unpromising expectations. He shows no improvement in his chronic significant neurological deficit.No new issues Pt's requested Speech evaluation to see if he can swallow anything for some gratification of taste if possible which was so ordered. Now making progress with Ventilator weaning and tolerating pressure support. Making good progress. Started on blow - by during the day and PS at night. Now pt is weaned off the ventilator and is on blow by and stable. Discussed with speech tech. at IDT to use supervised Speech valve [place] to help swallowing for recreational eating if tolerated towards the general plan for possible discharge home in near future Plan: Current treatment as ongoing. Weaning attempts continued. Family updated
[2023-11-16] VITALS (9 sets, daily range): BP systolic 96–133; BP diastolic 62–72; PULSE 62–77; RESP 16–21; TEMP 36.1–36.2; O2SAT 97–100
[2023-11-16] MEDS: IPRATROPIUM/ALBUTEROL 3 ML AMPUL.NEB INH ×4 (01:45→18:31)
[2023-11-16] MEDS: FUROSEMIDE 20 MG TABLET GT (09:00)
[2023-11-16] MEDS: FAMOTIDINE 20 MG TABLET GT ×2 (09:00→20:14)
[2023-11-16] MEDS: AMLODIPINE 5 MG TABLET GT (09:00)
[2023-11-16] MEDS: SENNOSIDES 8.6 MG TABLET GT ×2 (09:00→20:14)
[2023-11-16] MEDS: INSULIN GLARGINE 100 UNIT/ML INSULN.PEN 14 UNIT SC (17:33)
[2023-11-16] MEDS: DOXAZOSIN 2 MG TABLET 4 MG GT (20:14)
[2023-11-17] VITALS (9 sets, daily range): BP systolic 102–118; BP diastolic 58–71; PULSE 60–73; RESP 16–20; TEMP 35.7–36.5; O2SAT 99–100
[2023-11-17] MEDS: IPRATROPIUM/ALBUTEROL 3 ML AMPUL.NEB INH ×4 (02:00→18:21)
[2023-11-17] MEDS: FAMOTIDINE 20 MG TABLET GT ×2 (08:01→20:11)
[2023-11-17] MEDS: AMLODIPINE 5 MG TABLET GT (08:01)
[2023-11-17] MEDS: FUROSEMIDE 20 MG TABLET GT (08:01)
[2023-11-17] MEDS: SENNOSIDES 8.6 MG TABLET GT ×2 (08:02→20:11)
[2023-11-17] MEDS: INSULIN GLARGINE 100 UNIT/ML INSULN.PEN 14 UNIT SC (17:30)
--- NOTE | 2023-11-17 17:30 | PC.NURSE ---
Staff reported that resident's is at bedside with a lady and letting him sign something. Went to resident's room right away and talked to the lady and resident's . As this literary writer walked to resident's room resident already had signed. As per , resident had signed the property deed. It was mentioned/explained to them that anything that resident needs to signed should go through the social service and with the [facility] since he is a resident of the facility. The lady named Rafael who's with resident's got upset/mad to this literary writer saying that she came from [place] and stated i don't care he already signed . She even stated that she's been going to other [facility] and doesn't have any problem doing this. As per , Rafael has been coming here for resident to sign papers but doesn't have any problem doing it and why only now. It was mentioned to them again that all papers for resident to sign should be arranged with the SS. Called DON and made aware.
[2023-11-18] VITALS (10 sets, daily range): BP systolic 98–140; BP diastolic 60–83; PULSE 67–81; RESP 18–20; TEMP 36.2–36.5; O2SAT 19–100
[2023-11-18] MEDS: IPRATROPIUM/ALBUTEROL 3 ML AMPUL.NEB INH ×4 (00:12→18:25)
[2023-11-18] MEDS: FUROSEMIDE 20 MG TABLET GT (09:27)
[2023-11-18] MEDS: SENNOSIDES 8.6 MG TABLET GT ×2 (09:27→20:45)
[2023-11-18] MEDS: FAMOTIDINE 20 MG TABLET GT ×2 (09:27→20:45)
[2023-11-18] MEDS: AMLODIPINE 5 MG TABLET GT (09:27)
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
--- NOTE | 2023-11-18 17:19 | PC.RT ---
PMV trial. Only lasted 3min. RR and HR increased. Patient placed back on blowby.
[2023-11-18] MEDS: INSULIN GLARGINE 100 UNIT/ML INSULN.PEN 14 UNIT SC (17:39)
[2023-11-18] MEDS: DOXAZOSIN 2 MG TABLET 4 MG GT (20:45)
[2023-11-19] VITALS (8 sets, daily range): BP systolic 99–121; BP diastolic 59–73; PULSE 66–77; RESP 18–21; TEMP 36.1–36.2; O2SAT 97–100
[2023-11-19] MEDS: IPRATROPIUM/ALBUTEROL 3 ML AMPUL.NEB INH ×4 (00:53→18:15)
[2023-11-19] MEDS: FAMOTIDINE 20 MG TABLET GT ×2 (08:48→20:47)
[2023-11-19] MEDS: SENNOSIDES 8.6 MG TABLET GT ×2 (08:48→20:47)
[2023-11-19] MEDS: AMLODIPINE 5 MG TABLET GT (08:48)
[2023-11-19] MEDS: FUROSEMIDE 20 MG TABLET GT (08:48)
--- NOTE | 2023-11-19 14:31 | PC.SS ---
This SSD saw resident at bedside, resident is seen laying in bed with head of the bed elevated with call light properly placed with no signs of distress. Resident has no changes in mood or behavior, this SSD will continue to make daily contact with resident and monitor for changes in mood and behavior.
[2023-11-19] MEDS: INSULIN GLARGINE 100 UNIT/ML INSULN.PEN 14 UNIT SC (17:25)
[2023-11-19] MEDS: DOXAZOSIN 2 MG TABLET 4 MG GT (20:47)
--- NOTE | 2023-11-19 22:19 | ESPR_ITS ---
Progress Note - SubAcute SUBJECTIVE Fever:: none Shortness of Breath:: none GI:: no complaints Pain:: none OBJECTIVE Most recent vital signs: Last Vital Signs Temp 97.2 F 11/19/23 18:00 Pulse 74 11/19/23 18:15 Resp 18 11/19/23 18:15 BP 108/70 11/19/23 18:00 Pulse Ox 97 11/19/23 18:15 O2 Del Method Blow-by 11/19/23 12:00 O2 Flow Rate 6 11/19/23 18:15 FiO2 28 11/19/23 18:15 Neurological:: alert (responds to simple commands, shakes hands with his left) Speech:: none Answers questions:: no Respiratory:: shallow breathing Cardiovascular: RRR Abdomen: soft and nontender Extremities:: deformities Decubitus:: improved Tracheostomy:: to ventilator Feeding per:: G tube Complaints:: none ASSESSMENT & PLAN Assessment: Pt. has certainly been awake and eye tracking some, does extend his left hand w hen offered a hand shake Diagnosis and treatment reviewed. Ventilator settings reviewed. Weaning attempt restarted and are now well tolerated and making progress on Pressure support alone. All else stable, pt fully dependent for care. I had a detailed converiisation with pt's about his status and prognostic outlooks and explained in detail all her questions to which she was thankful even though more saddened by the reality of his condition and unpromising expectations. He shows no improvement in his chronic significant neurological deficit.No new issues Pt's requested Speech evaluation to see if he can swallow anything for some gratification of taste if possible which was so ordered. Now making progress with Ventilator weaning and tolerating pressure support. Making good progress. Started on blow - by during the day and PS at night. Now pt is weaned off the ventilator and is on blow by and stable. Discussed with speech tech. at IDT to use supervised Speech valve [place] to help swallowing for recreational eating if tolerated towards the general plan for possible discharge home in near future Plan: Current treatment as ongoing. Weaning attempts continued. Family updated
[2023-11-20] VITALS (9 sets, daily range): BP systolic 106–142; BP diastolic 61–71; PULSE 67–84; RESP 18–21; TEMP 36.2–36.4; O2SAT 99–100
[2023-11-20] MEDS: IPRATROPIUM/ALBUTEROL 3 ML AMPUL.NEB INH ×4 (01:05→18:35)
[2023-11-20] MEDS: FUROSEMIDE 20 MG TABLET GT (08:09)
[2023-11-20] MEDS: FAMOTIDINE 20 MG TABLET GT ×2 (08:09→21:16)
[2023-11-20] MEDS: SENNOSIDES 8.6 MG TABLET GT ×2 (08:10→21:16)
--- NOTE | 2023-11-20 09:45 | PC.SS ---
This SSD received call from Naheed from [facility] she was calling to follow up on report filled, Naheed asked if there were any updates. Naheed acknowledged she did receive SOC 341, she asked for this SSD to provide her with a definite DC date. This SSD to provide [facility] with updates as they are made available.
--- NOTE | 2023-11-20 14:39 | PC.SS ---
Room visit: This SSD followed up with resident, resident is seen laying in bed with head of the bed elevated with call light properly placed. Resident is in good spirits seen smiling and accepting room visits. Resident is not showing any changes in mood and behavior, this SSD will continue to make daily contact with resident and monitor for any changes.
[2023-11-20] MEDS: INSULIN GLARGINE 100 UNIT/ML INSULN.PEN 14 UNIT SC (17:33)
[2023-11-20] MEDS: DOXAZOSIN 2 MG TABLET 4 MG GT (21:15)
[2023-11-21] VITALS (9 sets, daily range): BP systolic 102–153; BP diastolic 63–84; PULSE 64–76; RESP 13–18; TEMP 35.8–36.5; O2SAT 98–100
[2023-11-21] MEDS: IPRATROPIUM/ALBUTEROL 3 ML AMPUL.NEB INH ×4 (00:45→18:27)
[2023-11-21] MEDS: SENNOSIDES 8.6 MG TABLET GT ×2 (08:34→20:08)
[2023-11-21] MEDS: FUROSEMIDE 20 MG TABLET GT (08:34)
[2023-11-21] MEDS: FAMOTIDINE 20 MG TABLET GT ×2 (08:34→20:08)
--- NOTE | 2023-11-21 11:48 | PC.SS ---
Room Visit: Resident is laying in bed with head of the bed elevated with call light properly placed with no signs of distress. Resident remains on blow by with trach in place and GT for medication and nutrition. Resident will remain in current care as he continues to work on DC goals with ST. Currently he has no changes in care or condition he will continue to have all subacute care needs met by staff. SSD will make daily contact with resident and monitor for changes in mood and behavior. SSD will assist with DC planning as appropriate.
--- NOTE | 2023-11-21 12:51 | PC.SS ---
Resident is seen laying in bed watching TV, he is not engaging in conversation during room visit. Resident appears to be tired or not in mood for a room visit. This SSD asked resident simple yes no question he nodded his head to answer and looked away to TV. This SSD will continue to follow up with resident and offer support as he will accept.
[2023-11-21] MEDS: INSULIN REGULAR, HUMAN 100 UNIT/ML VIAL SC (17:44)
[2023-11-21] MEDS: INSULIN GLARGINE 100 UNIT/ML INSULN.PEN 14 UNIT SC (17:44)
[2023-11-21] MEDS: DOXAZOSIN 2 MG TABLET 4 MG GT (20:08)
[2023-11-22] VITALS (9 sets, daily range): BP systolic 99–120; BP diastolic 62–72; PULSE 59–75; RESP 16–19; TEMP 36.2–36.5; O2SAT 97–100
[2023-11-22] MEDS: IPRATROPIUM/ALBUTEROL 3 ML AMPUL.NEB INH ×4 (01:54→19:25)
[2023-11-22] MEDS: FAMOTIDINE 20 MG TABLET GT ×2 (09:41→20:00)
[2023-11-22] MEDS: FUROSEMIDE 20 MG TABLET GT (09:42)
[2023-11-22] MEDS: SENNOSIDES 8.6 MG TABLET GT ×2 (09:42→20:00)
[2023-11-22] MEDS: INSULIN GLARGINE 100 UNIT/ML INSULN.PEN 14 UNIT SC (17:26)
[2023-11-23] VITALS (9 sets, daily range): BP systolic 112–134; BP diastolic 68–79; PULSE 63–74; RESP 16–19; TEMP 36.3–36.7; O2SAT 98–100
[2023-11-23] MEDS: IPRATROPIUM/ALBUTEROL 3 ML AMPUL.NEB INH ×4 (00:45→18:50)
[2023-11-23] MEDS: FUROSEMIDE 20 MG TABLET GT (08:00)
[2023-11-23] MEDS: FAMOTIDINE 20 MG TABLET GT ×2 (08:00→20:00)
[2023-11-23] MEDS: SENNOSIDES 8.6 MG TABLET GT ×2 (08:00→20:00)
[2023-11-23] MEDS: AMLODIPINE 5 MG TABLET GT (08:00)
--- NOTE | 2023-11-23 16:46 | ESPR_ITS ---
Progress Note - SubAcute SUBJECTIVE Fever:: none Shortness of Breath:: none GI:: no complaints Pain:: none OBJECTIVE Most recent vital signs: Last Vital Signs Temp 97.6 F 11/23/23 12:00 Pulse 69 11/23/23 13:39 Resp 18 11/23/23 13:39 BP 120/75 11/23/23 12:00 Pulse Ox 100 11/23/23 13:39 O2 Del Method Blow-by 11/22/23 06:00 O2 Flow Rate 6 11/23/23 13:39 FiO2 28 11/23/23 13:39 Neurological:: alert (responds to simple commands, shakes hands with his left) Speech:: none Answers questions:: no Respiratory:: shallow breathing Cardiovascular: RRR Abdomen: soft and nontender Extremities:: deformities Decubitus:: improved Tracheostomy:: to ventilator Feeding per:: G tube Complaints:: none ASSESSMENT & PLAN Assessment: Pt. has certainly been awake and eye tracking some, does extend his left hand when offered a hand shake Diagnosis and treatment reviewed. Ventilator settings reviewed. Weaning attempt restarted and are now well tolerated and making progress on Pressure support alone. All else stable, pt fully dependent for care. I had a detailed converiisation with pt's about his status and prognostic outlooks and explained in detail all her questions to which she was thankful even though more saddened by the reality of his condition and unpromising expectations. He shows no improvement in his chronic significant neurological deficit.No new issues Pt's requested Speech evaluation to see if he can swallow anything for some gratification of taste if possible which was so ordered. Now making progress with Ventilator weaning and tolerating pressure support. Making good progress. Started on blow - by during the day and PS at night. Now pt is weaned off the ventilator and is on blow by and stable. Discussed with speech tech. at IDT to use supervised Speech valve [place] to help swallowing for recreational eating if tolerated towards the general plan for possible discharge home in near future. No significant change so far. Plan: Current treatment as ongoing. Weaning attempts continued. Family updated
[2023-11-23] MEDS: INSULIN GLARGINE 100 UNIT/ML INSULN.PEN 14 UNIT SC (17:15)
[2023-11-23] MEDS: DOXAZOSIN 2 MG TABLET 4 MG GT (20:00)
[2023-11-24] VITALS (9 sets, daily range): BP systolic 95–128; BP diastolic 57–82; PULSE 65–81; RESP 16–22; TEMP 36.2–36.5; O2SAT 99–100
[2023-11-24] MEDS: IPRATROPIUM/ALBUTEROL 3 ML AMPUL.NEB INH ×4 (01:21→18:45)
[2023-11-24] MEDS: FUROSEMIDE 20 MG TABLET GT (09:22)
[2023-11-24] MEDS: FAMOTIDINE 20 MG TABLET GT ×2 (09:22→20:17)
[2023-11-24] MEDS: SENNOSIDES 8.6 MG TABLET GT ×2 (09:22→20:17)
[2023-11-24] MEDS: INSULIN GLARGINE 100 UNIT/ML INSULN.PEN 14 UNIT SC (17:19)
[2023-11-24] MEDS: DOXAZOSIN 2 MG TABLET 4 MG GT (20:17)
[2023-11-25] VITALS (9 sets, daily range): BP systolic 100–135; BP diastolic 61–84; PULSE 63–79; RESP 18–19; TEMP 36.1–36.6; O2SAT 100
[2023-11-25] MEDS: IPRATROPIUM/ALBUTEROL 3 ML AMPUL.NEB INH ×4 (00:45→18:50)
[2023-11-25] MEDS: SENNOSIDES 8.6 MG TABLET GT ×2 (08:15→20:20)
[2023-11-25] MEDS: FAMOTIDINE 20 MG TABLET GT ×2 (08:15→20:20)
[2023-11-25] MEDS: FUROSEMIDE 20 MG TABLET GT (08:15)
[2023-11-25] MEDS: INSULIN GLARGINE 100 UNIT/ML INSULN.PEN 14 UNIT SC (17:02)
[2023-11-25] MEDS: DOXAZOSIN 2 MG TABLET 4 MG GT (20:20)
[2023-11-26] VITALS (9 sets, daily range): BP systolic 99–108; BP diastolic 60–71; PULSE 53–95; RESP 16–20; TEMP 36.2–36.6; O2SAT 98–100
[2023-11-26] MEDS: IPRATROPIUM/ALBUTEROL 3 ML AMPUL.NEB INH ×4 (01:24→18:55)
[2023-11-26] MEDS: FAMOTIDINE 20 MG TABLET GT ×2 (09:00→20:09)
[2023-11-26] MEDS: SENNOSIDES 8.6 MG TABLET GT ×2 (09:00→20:09)
[2023-11-26] MEDS: FUROSEMIDE 20 MG TABLET GT (09:00)
--- NOTE | 2023-11-26 11:23 | PC.NURSE ---
Resident taken to radiology for swallow eval via consuelorronaldo. at 1030. Returning at 1120. Assisted back to bed. Resident seems comfortable Will contact Jana LOCKHART
--- NOTE | 2023-11-26 12:15 | PC.NURSE ---
Late entry for November 22 conversation held with Harper (resident's ) over the phone. Regarding her trainining here with us for discharge purposes. She is planning to take her home. She needs extensive training regarding ADLs, medication administration, Trach care etc. Clarified with Harper that we will not to call her for her to do training she will have to come when she is available and let us know when is she coming so the nurses will be ready for her. She verbalized understanding.
--- NOTE | 2023-11-26 12:22 | PC.NURSE ---
Spoke to Jana regarding video barium swallow performed this morning. She stated resident might be able to do recreational feedings. In her humble opinion she feels resident will not be able to to go home without a trach. He will be discharge with trach in place. made aware.
[2023-11-26] MEDS: INSULIN GLARGINE 100 UNIT/ML INSULN.PEN 14 UNIT SC (16:57)
[2023-11-26] MEDS: DOXAZOSIN 2 MG TABLET 4 MG GT (20:09)
[2023-11-27] VITALS (9 sets, daily range): BP systolic 104–125; BP diastolic 67–77; PULSE 66–80; RESP 16–20; TEMP 36.1–36.4; O2SAT 97–100
[2023-11-27] MEDS: IPRATROPIUM/ALBUTEROL 3 ML AMPUL.NEB INH ×4 (01:25→21:30)
[2023-11-27] MEDS: FAMOTIDINE 20 MG TABLET GT ×2 (08:04→20:00)
[2023-11-27] MEDS: FUROSEMIDE 20 MG TABLET GT (08:05)
[2023-11-27] MEDS: SENNOSIDES 8.6 MG TABLET GT ×2 (08:05→20:00)
[2023-11-27] MEDS: INSULIN GLARGINE 100 UNIT/ML INSULN.PEN 14 UNIT SC (18:10)
[2023-11-27] MEDS: DOXAZOSIN 2 MG TABLET 4 MG GT (20:00)
--- NOTE | 2023-11-27 22:16 | ESPR_ITS ---
Progress Note - SubAcute SUBJECTIVE Fever:: none Shortness of Breath:: none GI:: no complaints Pain:: none OBJECTIVE Most recent vital signs: Last Vital Signs Temp 97.6 F 11/27/23 17:33 Pulse 80 11/27/23 19:40 Resp 17 11/27/23 19:40 BP 116/72 11/27/23 17:33 Pulse Ox 98 11/27/23 19:40 O2 Del Method Blow-by 11/27/23 17:33 O2 Flow Rate 6 11/27/23 19:40 FiO2 28 11/27/23 19:40 Neurological:: alert (responds to simple commands, shakes hands with his left) Speech:: none Answers questions:: no Respiratory:: shallow breathing Cardiovascular: RRR Abdomen: soft and nontender Extremities:: deformities Decubitus:: improved Tracheostomy:: to ventilator Feeding per:: G tube Complaints:: none ASSESSMENT & PLAN Assessment: Pt. has certainly been awake and eye tracking some, does extend his left hand w hen offered a hand shake Diagnosis and treatment reviewed. Ventilator settings reviewed. Weaning attempt restarted and are now well tolerated and making progress on Pressure support alone. All else stable, pt fully dependent for care. I had a detailed converiisation with pt's about his status and prognostic outlooks and explained in detail all her questions to which she was thankful even though more saddened by the reality of his condition and unpromising expectations. He shows no improvement in his chronic significant neurological deficit.No new issues Pt's requested Speech evaluation to see if he can swallow anything for some gratification of taste if possible which was so ordered. Now making progress with Ventilator weaning and tolerating pressure support. Making good progress. Started on blow - by during the day and PS at night. Now pt is weaned off the ventilator and is on blow by and stable. Discussed with speech tech. at IDT to use supervised Speech valve [place] to help swallowing for recreational eating if tolerated towards the general plan for possible discharge home in near future. No significant change so far. Plan: Current treatment as ongoing. Weaning attempts continued. Family updated
[2023-11-28] VITALS (9 sets, daily range): BP systolic 108–132; BP diastolic 69–77; PULSE 69–86; RESP 16–19; TEMP 36.1–36.3; O2SAT 95–100
[2023-11-28] MEDS: IPRATROPIUM/ALBUTEROL 3 ML AMPUL.NEB INH ×4 (00:45→19:14)
[2023-11-28] MEDS: AMLODIPINE 5 MG TABLET GT (09:26)
[2023-11-28] MEDS: SENNOSIDES 8.6 MG TABLET GT ×2 (09:27→21:00)
[2023-11-28] MEDS: FUROSEMIDE 20 MG TABLET GT (09:27)
[2023-11-28] MEDS: FAMOTIDINE 20 MG TABLET GT ×2 (09:27→21:00)
--- NOTE | 2023-11-28 16:08 | PC.SS ---
Room visit: Resident is laying in bed with head of the bed elevated with call light properly placed. Resident has no changes in care or condition, remains on blow by with trach in place and GT in place for medication and nutrition. Resident will remain in current care and will continue to have all subacute care needs met by staff.
--- NOTE | 2023-11-28 16:09 | PC.SS ---
Resident Harper called today to schedule appt with yves in facility for fingerprinting resident. She stated she needed to get this process done as soon as possible before the month is over. This SSD agreed to call her back once all appropriate people were notified and involved. This SSD spoke with NEELIMA and latasha to discuss Harper request. Latasha will be here on Friday at 1300 to meet with resident, this SSD will speak with MD regarding mental capacity.
[2023-11-28] MEDS: INSULIN GLARGINE 100 UNIT/ML INSULN.PEN 14 UNIT SC (17:21)
[2023-11-28] MEDS: DOXAZOSIN 2 MG TABLET 4 MG GT (21:00)
[2023-11-28] MEDS: ONDANSETRON HCL 4 MG TABLET PO (22:00)
[2023-11-29] VITALS (9 sets, daily range): BP systolic 98–130; BP diastolic 61–84; PULSE 53–79; RESP 16–20; TEMP 36.1–36.6; O2SAT 96–100
[2023-11-29] MEDS: IPRATROPIUM/ALBUTEROL 3 ML AMPUL.NEB INH ×4 (01:07→20:01)
[2023-11-29] MEDS: ACETAMINOPHEN 325 MG TABLET 650 MG GT (03:15)
[2023-11-29] MEDS: FAMOTIDINE 20 MG TABLET GT ×2 (08:06→20:58)
[2023-11-29] MEDS: SENNOSIDES 8.6 MG TABLET GT ×2 (08:06→20:58)
[2023-11-29] MEDS: FUROSEMIDE 20 MG TABLET GT (08:06)
[2023-11-29] MEDS: INSULIN GLARGINE 100 UNIT/ML INSULN.PEN 14 UNIT SC (18:12)
[2023-11-29] MEDS: DOXAZOSIN 2 MG TABLET 4 MG GT (20:57)
[2023-11-30] VITALS (9 sets, daily range): BP systolic 101–117; BP diastolic 61–67; PULSE 60–86; RESP 18–20; TEMP 36.3–36.5; O2SAT 7–100
[2023-11-30] MEDS: IPRATROPIUM/ALBUTEROL 3 ML AMPUL.NEB INH ×4 (01:31→19:10)
[2023-11-30] MEDS: SENNOSIDES 8.6 MG TABLET GT ×2 (08:21→21:04)
[2023-11-30] MEDS: FUROSEMIDE 20 MG TABLET GT (08:21)
[2023-11-30] MEDS: FAMOTIDINE 20 MG TABLET GT ×2 (08:21→21:04)
[2023-11-30] MEDS: INSULIN GLARGINE 100 UNIT/ML INSULN.PEN 14 UNIT SC (17:34)
[2023-11-30] MEDS: DOXAZOSIN 2 MG TABLET 4 MG GT (21:03)
[2023-12-01] VITALS (9 sets, daily range): BP systolic 94–134; BP diastolic 56–78; PULSE 63–83; RESP 18–20; TEMP 35.7–37; O2SAT 98–100
[2023-12-01] MEDS: IPRATROPIUM/ALBUTEROL 3 ML AMPUL.NEB INH ×4 (00:32→18:20)
--- NOTE | 2023-12-01 08:30 | CHAP ---
Patient was visited by a Spiritual Care Volunteer on 11/28/2023 between 0915 and 1200 and received comfort, encouragement and/or prayer.
[2023-12-01] MEDS: AMLODIPINE 5 MG TABLET GT (09:16)
[2023-12-01] MEDS: FAMOTIDINE 20 MG TABLET GT ×2 (09:17→20:16)
[2023-12-01] MEDS: FUROSEMIDE 20 MG TABLET GT (09:17)
[2023-12-01] MEDS: SENNOSIDES 8.6 MG TABLET GT ×2 (09:17→20:16)
--- NOTE | 2023-12-01 16:27 | PC.SS ---
Jacaleksandar came for a bedside visit with resident. Dennis had some questions for resident, she stated resident could not answer all questions appropriately. This SSD informed DON of this visit, at which time it was discussed resident would not be able to move forward with any signatures or fingerprinting by Harper and yves. Harper was called and notified of this visit and resident reaction. Harper informed she would have to wait until resident returned home to have any signatures or fingerprints. Harper has agreed to wait nd has agreed to be here tomorrow morning for training as she prepares to take resident home next month.
[2023-12-01] MEDS: INSULIN GLARGINE 100 UNIT/ML INSULN.PEN 14 UNIT SC (17:44)
--- NOTE | 2023-12-01 18:42 | ESPR_ITS ---
Progress Note - SubAcute SUBJECTIVE Fever:: none Shortness of Breath:: none GI:: no complaints Pain:: none OBJECTIVE Most recent vital signs: Last Vital Signs Temp 98.6 F 12/01/23 16:10 Pulse 82 12/01/23 12:40 Resp 18 12/01/23 16:10 BP 100/56 L 12/01/23 16:10 Pulse Ox 99 12/01/23 16:10 O2 Del Method Blow-by 11/30/23 18:00 O2 Flow Rate 6 12/01/23 12:40 FiO2 28 12/01/23 12:40 Neurological:: alert (responds to simple commands, shakes hands with his left) Speech:: none Answers questions:: no Respiratory:: shallow breathing Cardiovascular: RRR Abdomen: soft and nontender Extremities:: deformities Decubitus:: improved Tracheostomy:: to blow by Feeding per:: G tube Complaints:: none ASSESSMENT & PLAN Assessment: Pt. has certainly been awake and eye tracking some, does extend his left hand when offered a hand shake Diagnosis and treatment reviewed. All else stable, pt fully dependent for care. I had a detailed converiisation with pt's about his status and prognostic outlooks and explained in detail all her questions to which she was thankful even though more saddened by the reality of his condition and unpromising expectations. He shows no improvement in his chronic significant neurological deficit.No new issues Pt's requested Speech evaluation to see if he can swallow anything for some gratification of taste if possible which was so ordered. . Now pt is weaned off the ventilator and is on blow by and stable. Discussed with speech tech. at IAT to use supervised Speech valve [place] to help swallowing for recreational eating if tolerated towards the general plan for possible discharge home in near future. No significant change so far. Plan: Current treatment as ongoing. Weaning attempts continued. Family updated
[2023-12-01] MEDS: DOXAZOSIN 2 MG TABLET 4 MG GT (20:16)
[2023-12-02] VITALS (9 sets, daily range): BP systolic 103–162; BP diastolic 63–89; PULSE 66–80; RESP 16–20; TEMP 36.3–36.6; O2SAT 96–100
[2023-12-02] MEDS: IPRATROPIUM/ALBUTEROL 3 ML AMPUL.NEB INH ×3 (06:40→18:23)
[2023-12-02] MEDS: SENNOSIDES 8.6 MG TABLET GT ×2 (08:51→20:03)
[2023-12-02] MEDS: FAMOTIDINE 20 MG TABLET GT ×2 (08:51→20:03)
[2023-12-02] MEDS: FUROSEMIDE 20 MG TABLET GT (08:51)
[2023-12-02] MEDS: CARBAMIDE PEROXIDE OTIC SOL 15 ML BTL 5 DROP RIGHT EAR ×2 (09:00→20:02)
[2023-12-02] MEDS: INSULIN GLARGINE 100 UNIT/ML INSULN.PEN 14 UNIT SC (17:40)
[2023-12-03] VITALS (9 sets, daily range): BP systolic 111–144; BP diastolic 68–78; PULSE 64–79; RESP 16–20; TEMP 36.1–36.5; O2SAT 96–100
[2023-12-03] MEDS: IPRATROPIUM/ALBUTEROL 3 ML AMPUL.NEB INH ×5 (00:15→18:13)
[2023-12-03] MEDS: AMLODIPINE 5 MG TABLET GT (08:02)
[2023-12-03] MEDS: SENNOSIDES 8.6 MG TABLET GT ×2 (08:02→20:50)
[2023-12-03] MEDS: CARBAMIDE PEROXIDE OTIC SOL 15 ML BTL 5 DROP RIGHT EAR ×2 (08:02→20:49)
[2023-12-03] MEDS: FUROSEMIDE 20 MG TABLET GT (08:02)
[2023-12-03] MEDS: FAMOTIDINE 20 MG TABLET GT ×2 (08:02→20:50)
[2023-12-03] MEDS: INSULIN GLARGINE 100 UNIT/ML INSULN.PEN 14 UNIT SC (17:22)
[2023-12-03] MEDS: DOXAZOSIN 2 MG TABLET 4 MG GT (20:50)
[2023-12-04] VITALS (9 sets, daily range): BP systolic 96–128; BP diastolic 62–77; PULSE 66–94; RESP 18–20; TEMP 36.3–36.5; O2SAT 97–100
[2023-12-04] MEDS: IPRATROPIUM/ALBUTEROL 3 ML AMPUL.NEB INH ×4 (00:48→18:43)
[2023-12-04] MEDS: AMLODIPINE 5 MG TABLET GT (09:47)
[2023-12-04] MEDS: CARBAMIDE PEROXIDE OTIC SOL 15 ML BTL 5 DROP RIGHT EAR ×2 (09:47→20:55)
[2023-12-04] MEDS: FAMOTIDINE 20 MG TABLET GT ×2 (09:48→20:55)
[2023-12-04] MEDS: SENNOSIDES 8.6 MG TABLET GT ×2 (09:48→20:55)
[2023-12-04] MEDS: FUROSEMIDE 20 MG TABLET GT (09:48)
--- NOTE | 2023-12-04 11:14 | PC.DIETICIAN ---
Dietitian consult to switch TF regimen: For bolus trial and TF education, recommend: 1. Stop continuous feeds via pump 2. Start Glucerna 1.2 260ml Q 4hrs via GT by syring, follow feeds with 130ml water flush. Provides: 1560ml total vol, 1872kcal, 94g protein. Thank you
--- NOTE | 2023-12-04 17:23 | PC.NURSE ---
Resident to be discharged to home in few weeks. Currently on continous tube feeding. Spoke with RD today regarding the discharge and to review resident's tube feeding if possible to be given bolus in preparation for his discharge and to educate resident's about it recommended to give the Glucerna 1.2 at 260 ml every 4 hours via GT syringe. Notified Dr Diaz and agreed with recommendation
[2023-12-04] MEDS: INSULIN GLARGINE 100 UNIT/ML INSULN.PEN 14 UNIT SC (17:30)
[2023-12-05] VITALS (10 sets, daily range): BP systolic 110–129; BP diastolic 66–79; PULSE 68–85; RESP 16–20; TEMP 36.1–36.6; O2SAT 99–100
[2023-12-05] MEDS: IPRATROPIUM/ALBUTEROL 3 ML AMPUL.NEB INH ×4 (01:32→18:31)
--- NOTE | 2023-12-05 02:25 | PC.NURSE ---
Resident noted with moderate amount of emesis of gastric content. Resident suctioned by RT. Resident denies feeling nauseated or any discomfort. No residule noted s/p midnight bolus feeding.
[2023-12-05] MEDS: AMLODIPINE 5 MG TABLET GT (09:32)
[2023-12-05] MEDS: SENNOSIDES 8.6 MG TABLET GT ×2 (09:33→21:14)
[2023-12-05] MEDS: FUROSEMIDE 20 MG TABLET GT (09:33)
[2023-12-05] MEDS: FAMOTIDINE 20 MG TABLET GT ×2 (09:33→21:13)
[2023-12-05] MEDS: CARBAMIDE PEROXIDE OTIC SOL 15 ML BTL 5 DROP RIGHT EAR ×2 (09:33→21:13)
--- NOTE | 2023-12-05 14:54 | PC.SS ---
Room visit: Resident is at bedside being trained on how to care for resident as he prepares to go home. Resident is laying in bed with head of the bed elevated with call light properly placed with no signs of distress. Resident remains on blow by with trach in place and GT for medication and nutrition. Resident has no changes in care or condition, resident will remain in current care and will continue to have all subacute care needs met by staff. This SSD to make daily contact and monitor for changes in mod and behavior and will offer support as needed.
[2023-12-05] MEDS: INSULIN GLARGINE 100 UNIT/ML INSULN.PEN 14 UNIT SC (17:46)
[2023-12-05] MEDS: DOXAZOSIN 2 MG TABLET 4 MG GT (21:13)
--- NOTE | 2023-12-05 22:04 | ESPR_ITS ---
Progress Note - SubAcute SUBJECTIVE Fever:: none Shortness of Breath:: none GI:: no complaints Pain:: none OBJECTIVE Most recent vital signs: Last Vital Signs Temp 97.5 F 12/05/23 17:55 Pulse 82 12/05/23 18:31 Resp 18 12/05/23 18:31 BP 129/77 12/05/23 17:55 Pulse Ox 99 12/05/23 18:31 O2 Del Method Blow-by 12/04/23 17:48 O2 Flow Rate 6 12/05/23 18:31 FiO2 28 12/05/23 18:31 Neurological:: alert (responds to simple commands, shakes hands with his left) Speech:: none Answers questions:: no Respiratory:: shallow breathing Cardiovascular: RRR Abdomen: soft and nontender Extremities:: deformities Decubitus:: improved Tracheostomy:: to blow by Feeding per:: G tube Complaints:: none ASSESSMENT & PLAN Assessment: Pt. has certainly been awake and eye tracking some, does extend his left hand when offered a hand shake Diagnosis and treatment reviewed. All else stable, pt fully dependent for care. I had a detailed converiisation with pt's about his status and prognostic outlooks and explained in detail all her questions to which she was thankful even though more saddened by the reality of his condition and unpromising expectations. He shows no improvement in his chronic significant neurological deficit.No new issues Pt's requested Speech evaluation to see if he can swallow anything for some gratification of taste if possible which was so ordered. . Now pt is weaned off the ventilator and is on blow by and stable. Discussed with speech tech. at ILT to use supervised Speech valve [place] to help swallowing for recreational eating if tolerated towards the general plan for possible discharge home in near future. No significant change so far.Everything is seemingly in place for discharge home at family request within the next two weeks Plan: Current treatment as ongoing. Weaning attempts continued. Family updated
[2023-12-06] VITALS (9 sets, daily range): BP systolic 111–123; BP diastolic 70–76; PULSE 66–80; RESP 16–19; TEMP 36.2–36.5; O2SAT 93–99
[2023-12-06] MEDS: IPRATROPIUM/ALBUTEROL 3 ML AMPUL.NEB INH ×4 (01:46→17:58)
[2023-12-06] MEDS: CARBAMIDE PEROXIDE OTIC SOL 15 ML BTL 5 DROP RIGHT EAR (08:12)
[2023-12-06] MEDS: AMLODIPINE 5 MG TABLET GT (08:12)
[2023-12-06] MEDS: SENNOSIDES 8.6 MG TABLET GT ×2 (08:13→20:30)
[2023-12-06] MEDS: FUROSEMIDE 20 MG TABLET GT (08:13)
[2023-12-06] MEDS: FAMOTIDINE 20 MG TABLET GT ×2 (08:13→20:30)
--- NOTE | 2023-12-06 10:28 | ESHP_ITS ---
Physical exam Physical Exam Vital signs: Temp Pulse Resp BP Pulse Ox O2 Del Method O2 Flow Rate 97.0 F 74 18 116/75 97 Blow-by 8 01/04/24 05:59 01/04/24 08:50 01/04/24 05:59 01/04/24 08:50 01/04/24 05:59 01/04/24 05:59 01/03/24 18:55 FiO2 35 01/03/24 18:55 Constitutional Comments: VSS HEENT Exam Comments: NAD Neck Exam Comments: NAD; Tracheostomy +, site clean Chest/Breast/Axilla Exam Comments: NAD Respiratory Exam Respiratory: Present chest non-tender, lungs clear, normal breath sounds and no resp distress Cardiovascular Exam Cardiovascular: Present RRR, S1 and S2 Abdominal Exam Abdominal: Present soft and normoactive bowel sounds Rectal Exam Comments: deferred Exam Comments: NAD Extremities Exam Comments: Spastic contractures; no edema/ pulses palpable Back/Spine/Pelvis Exam Comments: NAD Skin Exam Comments: NAD Neurological Exam Neurological: Present alert and motor deficit (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 has certainly been awake and eye tracking some, does extend his left hand when offered a hand shake Diagnosis and treatment reviewed. All else stable, pt fully dependent for care. I had a detailed converiisation with pt's about his status and prognostic outlooks and explained in detail all her questions to which she was thankful even though more saddened by the reality of his condition and unpromising expectations. He shows no improvement in his chronic significant neurological deficit.No new issues Plan: Current treatment as ongoing. . Family updated. Prognosis Prognosis: Pt fully dependent for care. Prognostic outlook for further recovery to any independent living is unlikely. Pt and familhy understand. If patient not informed of condion, describe why: Pt kept informed but not fully cognizant of comples issues and is the decision maker and kept updated HPI History of Present Illness HPI: Annual updated H&P for pt who was originally admitted on 12/05/22 and since then has improved significantly and is now with diagnosis of : Chronic respiratory failure with tracheostomy/ feeding G tube; who had a Sub- arachnoid hemorrhage from an Aneurysm along with DM-II/HTN and chronic contractures, and continues to be stable requiring significant care for daily needs. He is now able to respond appropriately with gestures and uses his left hand for some basic moves
[2023-12-06] MEDS: INSULIN GLARGINE 100 UNIT/ML INSULN.PEN 14 UNIT SC (17:49)
[2023-12-06] MEDS: INSULIN REGULAR, HUMAN 100 UNIT/ML VIAL SC (17:49)
[2023-12-07] VITALS (9 sets, daily range): BP systolic 116–126; BP diastolic 62–76; PULSE 64–75; RESP 18–19; TEMP 36.2–36.3; O2SAT 96–100
[2023-12-07] MEDS: IPRATROPIUM/ALBUTEROL 3 ML AMPUL.NEB INH ×4 (07:28→18:40)
[2023-12-07] MEDS: AMLODIPINE 5 MG TABLET GT (09:24)
[2023-12-07] MEDS: FAMOTIDINE 20 MG TABLET GT ×2 (09:25→20:53)
[2023-12-07] MEDS: ONDANSETRON HCL 4 MG TABLET PO (09:26)
[2023-12-07] MEDS: SENNOSIDES 8.6 MG TABLET GT ×2 (09:26→20:53)
[2023-12-07] MEDS: FUROSEMIDE 20 MG TABLET GT (09:26)
[2023-12-07] MEDS: INSULIN GLARGINE 100 UNIT/ML INSULN.PEN 14 UNIT SC (17:15)
--- NOTE | 2023-12-07 19:35 | ESPR_ITS ---
Progress Note - SubAcute SUBJECTIVE Fever:: none Shortness of Breath:: none GI:: no complaints Pain:: none OBJECTIVE Most recent vital signs: Last Vital Signs Temp 97.2 F 12/07/23 17:42 Pulse 75 12/07/23 17:42 Resp 19 12/07/23 17:42 BP 116/76 12/07/23 17:42 Pulse Ox 100 12/07/23 17:42 O2 Del Method Blow-by 12/07/23 17:42 O2 Flow Rate 6 12/07/23 13:02 FiO2 28 12/07/23 13:02 Neurological:: alert (responds to simple commands, shakes hands with his left) Speech:: none Answers questions:: no Respiratory:: shallow breathing Cardiovascular: RRR Abdomen: soft and nontender Extremities:: deformities Decubitus:: improved Tracheostomy:: to blow by Feeding per:: G tube Complaints:: none ASSESSMENT & PLAN Assessment: Pt. has certainly been awake and eye tracking some, does extend his left hand when offered a hand shake Diagnosis and treatment reviewed. All else stable, pt fully dependent for care. I had a detailed converiisation with pt's about his status and prognostic outlooks and explained in detail all her questions to which she was thankful even though more saddened by the reality of his condition and unpromising expectations. He shows no improvement in his chronic significant neurological deficit.No new issues Pt's requested Speech evaluation to see if he can swallow anything for some gratification of taste if possible which was so ordered. . Now pt is weaned off the ventilator and is on blow by and stable. Discussed with speech tech. at PAT to use supervised Speech valve [place] to help swallowing for recreational eating if tolerated towards the general plan for possible discharge home in near future. No significant change so far.Everything is seemingly in place for discharge home at family request within the next week or two when family ready , Plan: Current treatment as ongoing. Weaning attempts continued. Family updated
[2023-12-08] VITALS (9 sets, daily range): BP systolic 111–120; BP diastolic 53–75; PULSE 71–85; RESP 18–20; TEMP 36.2–36.3; O2SAT 99–100
[2023-12-08] MEDS: IPRATROPIUM/ALBUTEROL 3 ML AMPUL.NEB INH ×4 (00:45→18:45)
[2023-12-08 08:24] LABS: Glucose,Fasting 118 mg/dL (74-106)
--- NOTE | 2023-12-08 09:56 | PCS.ST ---
trained with PMV trials. Understands method, how to monitor pt, to remove if pt is coughing and protocol to suction first. instructed to notify RN or RT that she is placing valve for limit of 5 min. 3-[address] times [address] ST will continue PO training as well.
[2023-12-08] MEDS: AMLODIPINE 5 MG TABLET GT (09:57)
[2023-12-08] MEDS: SENNOSIDES 8.6 MG TABLET GT ×2 (09:58→20:53)
[2023-12-08] MEDS: FAMOTIDINE 20 MG TABLET GT ×2 (09:58→20:53)
[2023-12-08] MEDS: FUROSEMIDE 20 MG TABLET GT (09:58)
--- NOTE | 2023-12-08 10:36 | PC.SS ---
DC Planning: This SSD faxed referral to 4 home health agencies, all 4 have denied resident due to insurance. This SSD will continue to fax to other home health agencies to request a home safety eval by nurse. This SSD faxed orders for Respiratory supplies (see Physicians orders) incontinent care supplies, Nutrition supplies and DME. Orders have been received by Home Care they will supply portable oxygen at bedside and will train resident RP how to use at home. [employer] and Mechanical lift will be delivered at home. this SSD to send orders for nutrition supplies, incontinent care supplies and portable suction to other companies. This SSD will continue to assist with DC planning.
--- NOTE | 2023-12-08 16:19 | PC.SS ---
This SSD met with resident RP Harper regarding current training for preparation for DC to home on . Harper continues to be here Mondays, Wednesdays and Fridays for training on how to care for resident at home. Nurses and AFTER SCHOOL COUNSELOR's are teaching care to Harper. This SSD asked Harper how she is feeling regarding the care and plans for resident to return home with her. Harper stated she feels confident and not worried. Resident appears to be in good spirits. This SSD has scheduled a meeting with MD Harper and BLANE to discuss final DC planning and safety before resident DC to home on 12/21. This SSD will continue to assist with DC Planning.
[2023-12-08] MEDS: INSULIN GLARGINE 100 UNIT/ML INSULN.PEN 14 UNIT SC (17:47)
--- NOTE | 2023-12-08 19:14 | PC.NURSE ---
Clinical Microbiologist observed resident's and GOLD LETTERER change and reposition resident with minor corrections provided. Resident's required very detailed instructions on how to provide care to resident. After resident's intermittent feeding was over chief writer offered education to resident's as to how to flush water by gravity and how to disconnect tubing. The stated that she had been taught several times but did not feel comfortable doing it herself because she was a slow learner. seems very eager to learn but nervous as well. Will continue with education and demonstration as well as return-demonstration when she visits. RN made aware. Call light in reach. Will continue with current plan of care.
[2023-12-08] MEDS: DOXAZOSIN 2 MG TABLET 4 MG GT (20:49)
[2023-12-08] MEDS: ONDANSETRON HCL 4 MG TABLET PO (23:10)
[2023-12-09] VITALS (9 sets, daily range): BP systolic 110–126; BP diastolic 68–73; PULSE 64–83; RESP 17–20; TEMP 36.1–36.3; O2SAT 98–100
[2023-12-09] MEDS: IPRATROPIUM/ALBUTEROL 3 ML AMPUL.NEB INH ×4 (01:24→18:00)
--- NOTE | 2023-12-09 01:58 | PC.NURSE ---
Resident had a emesis x1, tube feeding in color at about 1130. Zofran given. No fever noted. Held midnight feeding at a later time.
[2023-12-09] MEDS: AMLODIPINE 5 MG TABLET GT (08:37)
[2023-12-09] MEDS: FUROSEMIDE 20 MG TABLET GT (08:39)
[2023-12-09] MEDS: FAMOTIDINE 20 MG TABLET GT ×2 (08:39→20:44)
[2023-12-09] MEDS: SENNOSIDES 8.6 MG TABLET GT ×2 (08:43→20:44)
[2023-12-09] MEDS: INSULIN GLARGINE 100 UNIT/ML INSULN.PEN 14 UNIT SC (17:21)
[2023-12-09] MEDS: DOXAZOSIN 2 MG TABLET 4 MG GT (20:44)
[2023-12-10] VITALS (10 sets, daily range): BP systolic 109–146; BP diastolic 70–75; PULSE 69–79; RESP 16–20; TEMP 36.1–36.6; O2SAT 100
--- NOTE | 2023-12-10 01:25 | PC.NURSE ---
Per day shift charge nurse, resident is a get up for 0800 activities and he is to get up in a reclining wheelchair, resident has not been eval. by physical therapy since 10/31/23, notes written by PT states, patient is not a candidate for shakir lift transfer at this time. 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 by PT.
[2023-12-10] MEDS: IPRATROPIUM/ALBUTEROL 3 ML AMPUL.NEB INH ×4 (01:31→19:15)
[2023-12-10] MEDS: SENNOSIDES 8.6 MG TABLET GT ×2 (08:06→20:24)
[2023-12-10] MEDS: FUROSEMIDE 20 MG TABLET GT (08:06)
[2023-12-10] MEDS: FAMOTIDINE 20 MG TABLET GT ×2 (08:06→20:24)
--- NOTE | 2023-12-10 13:45 | PC.SS ---
Room visit: Resident is laying in bed with head of the bed elevated with call light properly placed with no signs of distress. Resident is well groomed not showing any changes in mood and behavior. Resident remains on blow by with trach in place and GT for medications. Resident will remain in current care and will continue to have all subacute care needs met by staff.
--- NOTE | 2023-12-10 14:06 | PC.SS ---
Resident SHANEKA Saleem was unable to come in for training, she stated after a family gathering family was sick and she did not want to expose resident to anything. After speaking with Harper DC date has been moved from December 21 to December 28. Harper will conitnue her training with staff.
--- NOTE | 2023-12-10 16:07 | PC.SS ---
This SSD received call from Naheed Lam @ [facility] she called to follow up and ask for DC date to home. This SSD called her back and left her a message providing her with the information requested.
[2023-12-10] MEDS: INSULIN GLARGINE 100 UNIT/ML INSULN.PEN 14 UNIT SC (17:19)
[2023-12-11] VITALS (9 sets, daily range): BP systolic 112–133; BP diastolic 67–81; PULSE 64–75; RESP 18; TEMP 36.1–36.6; O2SAT 100
[2023-12-11] MEDS: IPRATROPIUM/ALBUTEROL 3 ML AMPUL.NEB INH ×4 (00:45→19:15)
[2023-12-11] MEDS: FAMOTIDINE 20 MG TABLET GT ×2 (09:12→20:50)
[2023-12-11] MEDS: SENNOSIDES 8.6 MG TABLET GT ×2 (09:12→20:51)
[2023-12-11] MEDS: FUROSEMIDE 20 MG TABLET GT (09:12)
[2023-12-11] MEDS: AMLODIPINE 5 MG TABLET GT (09:12)
[2023-12-11] MEDS: INSULIN GLARGINE 100 UNIT/ML INSULN.PEN 14 UNIT SC (17:00)
[2023-12-11] MEDS: DOXAZOSIN 2 MG TABLET 4 MG GT (20:50)
--- NOTE | 2023-12-11 21:20 | ESPR_ITS ---
Progress Note - SubAcute SUBJECTIVE Fever:: none Shortness of Breath:: none GI:: no complaints Pain:: none OBJECTIVE Most recent vital signs: Last Vital Signs Temp 97.2 F 12/14/23 06:00 Pulse 75 12/14/23 09:31 Resp 18 12/14/23 06:20 BP 127/73 12/14/23 09:31 Pulse Ox 100 12/14/23 06:20 O2 Del Method Blow-by 12/14/23 06:00 O2 Flow Rate 6 12/14/23 06:20 FiO2 28 12/14/23 06:20 Neurological:: alert (responds to simple commands, shakes hands with his left) Speech:: none Answers questions:: no Respiratory:: shallow breathing Cardiovascular: RRR Abdomen: soft and nontender Extremities:: deformities Decubitus:: improved Tracheostomy:: to blow by Feeding per:: G tube Complaints:: none ASSESSMENT & PLAN Assessment: Pt. has certainly been awake and eye tracking some, does extend his left hand when offered a hand shake Diagnosis and treatment reviewed. All else stable, pt fully dependent for care. I had a detailed converiisation with pt's about his status and prognostic outlooks and explained in detail all her questions to which she was thankful even though more saddened by the reality of his condition and unpromising expectations. He shows no improvement in his chronic significant neurological deficit.No new issues Pt's requested Speech evaluation to see if he can swallow anything for some gratification of taste if possible which was so ordered. . Now pt is weaned off the ventilator and is on blow by and stable. Discussed with speech tech. at OHT to use supervised Speech valve [place] to help swallowing for recreational eating if tolerated towards the general plan for possible discharge home in near future. No significant change so far.Everything is seemingly in place for discharge home at family request within the next week or two when family ready , Plan: Current treatment as ongoing. Weaning attempts continued. Family updated
[2023-12-12] VITALS (7 sets, daily range): BP systolic 103–116; BP diastolic 65–70; PULSE 67–81; RESP 18–20; TEMP 36.1–36.6; O2SAT 100
[2023-12-12] MEDS: IPRATROPIUM/ALBUTEROL 3 ML AMPUL.NEB INH ×4 (00:55→19:05)
[2023-12-12] MEDS: AMLODIPINE 5 MG TABLET GT (09:00)
[2023-12-12] MEDS: SENNOSIDES 8.6 MG TABLET GT ×2 (09:01→20:30)
[2023-12-12] MEDS: FUROSEMIDE 20 MG TABLET GT (09:01)
[2023-12-12] MEDS: FAMOTIDINE 20 MG TABLET GT ×2 (09:01→20:30)
--- NOTE | 2023-12-12 10:34 | PC.DIETICIAN ---
Dietitian recommendation: For TF home training with , use cartons: Mia Shake 237ml cartons/day 8xday via syringe Q3hrs @ [id number] to provide equivalent nutrition: 1896ml total vol, 1760kcal, 80g protein. Flush with 75ml water after feeds. Thank you
[2023-12-12] MEDS: INSULIN GLARGINE 100 UNIT/ML INSULN.PEN 14 UNIT SC (17:02)
[2023-12-13] VITALS (9 sets, daily range): BP systolic 101–144; BP diastolic 68–82; PULSE 68–77; RESP 17–18; TEMP 36.3–36.5; O2SAT 99–100
[2023-12-13] MEDS: IPRATROPIUM/ALBUTEROL 3 ML AMPUL.NEB INH ×4 (00:45→18:52)
[2023-12-13] MEDS: FUROSEMIDE 20 MG TABLET GT (08:20)
[2023-12-13] MEDS: AMLODIPINE 5 MG TABLET GT (08:20)
[2023-12-13] MEDS: FAMOTIDINE 20 MG TABLET GT ×2 (08:20→20:17)
[2023-12-13] MEDS: SENNOSIDES 8.6 MG TABLET GT ×2 (08:20→20:17)
[2023-12-13] MEDS: INSULIN GLARGINE 100 UNIT/ML INSULN.PEN 14 UNIT SC (17:13)
[2023-12-13] MEDS: ONDANSETRON HCL 4 MG TABLET PO (23:49)
[2023-12-14] VITALS (9 sets, daily range): BP systolic 100–130; BP diastolic 67–81; PULSE 64–77; RESP 16–18; TEMP 36.2–36.6; O2SAT 98–100
[2023-12-14] MEDS: IPRATROPIUM/ALBUTEROL 3 ML AMPUL.NEB INH ×4 (00:54→18:57)
[2023-12-14] MEDS: FAMOTIDINE 20 MG TABLET GT ×2 (09:31→21:13)
[2023-12-14] MEDS: FUROSEMIDE 20 MG TABLET GT (09:31)
[2023-12-14] MEDS: SENNOSIDES 8.6 MG TABLET GT ×2 (09:31→21:13)
[2023-12-14] MEDS: AMLODIPINE 5 MG TABLET GT (09:31)
[2023-12-14] MEDS: INSULIN GLARGINE 100 UNIT/ML INSULN.PEN 14 UNIT SC (17:53)
[2023-12-14] MEDS: DOXAZOSIN 2 MG TABLET 4 MG GT (21:13)
[2023-12-15] VITALS (8 sets, daily range): BP systolic 95–154; BP diastolic 58–81; PULSE 68–83; RESP 16–20; TEMP 36.1–36.4; O2SAT 94–99
[2023-12-15] MEDS: IPRATROPIUM/ALBUTEROL 3 ML AMPUL.NEB INH ×4 (01:23→19:41)
[2023-12-15] MEDS: ONDANSETRON HCL 4 MG TABLET PO ×2 (04:02→21:11)
--- NOTE | 2023-12-15 04:02 | PC.NURSE ---
Vomited tube feeding in color at this time. Zofran 4 mg given. Will hold bolus x1 hr and resume. --JA
[2023-12-15] MEDS: AMLODIPINE 5 MG TABLET GT (09:19)
[2023-12-15] MEDS: FAMOTIDINE 20 MG TABLET GT ×2 (09:20→21:10)
[2023-12-15] MEDS: FUROSEMIDE 20 MG TABLET GT (09:20)
[2023-12-15] MEDS: SENNOSIDES 8.6 MG TABLET GT ×2 (09:24→21:10)
[2023-12-15] MEDS: INSULIN GLARGINE 100 UNIT/ML INSULN.PEN 14 UNIT SC (16:53)
--- NOTE | 2023-12-15 18:41 | ESPR_ITS ---
Progress Note - SubAcute SUBJECTIVE Fever:: none Shortness of Breath:: none GI:: no complaints Pain:: none OBJECTIVE Most recent vital signs: Last Vital Signs Temp 97.4 F 12/15/23 18:00 Pulse 83 12/15/23 18:00 Resp 18 12/15/23 18:00 BP 102/58 L 12/15/23 18:00 Pulse Ox 96 12/15/23 18:00 O2 Del Method Blow-by 12/15/23 18:00 O2 Flow Rate 6 12/15/23 13:02 FiO2 28 12/15/23 13:02 Neurological:: alert (responds to simple commands, shakes hands with his left) Speech:: none Answers questions:: no Respiratory:: shallow breathing Cardiovascular: RRR Abdomen: soft and nontender Extremities:: deformities Decubitus:: improved Tracheostomy:: to blow by Feeding per:: G tube Complaints:: none ASSESSMENT & PLAN Assessment: Pt. has certainly been awake and eye tracking some, does extend his left hand when offered a hand shake Diagnosis and treatment reviewed. All else stable, pt fully dependent for care. I had a detailed converiisation with pt's about his status and prognostic outlooks and explained in detail all her questions to which she was thankful even though more saddened by the reality of his condition and unpromising expectations. He shows no improvement in his chronic significant neurological deficit.No new issues Pt's requested Speech. Pt looks ready and seems to understand. Plan: Current treatment as ongoing. Weaning attempts continued. Family updated
[2023-12-15] MEDS: DOXAZOSIN 2 MG TABLET 4 MG GT (21:10)
[2023-12-16] VITALS (9 sets, daily range): BP systolic 95–120; BP diastolic 65–74; PULSE 71–108; RESP 17–20; TEMP 36.2–38.7; O2SAT 92–100
[2023-12-16] MEDS: IPRATROPIUM/ALBUTEROL 3 ML AMPUL.NEB INH ×4 (00:01→18:50)
[2023-12-16] MEDS: ONDANSETRON HCL 4 MG TABLET PO (08:00)
--- NOTE | 2023-12-16 08:30 | PC.NURSE ---
Spoke with Dr Diaz and updated resident about episodes of vomiting, currently on Glucerna 1.2 bolus at 260 ml every 4 hours. V/S taken as follows: 120/74, 108, 20, 98.4, O2 sat 94% at BB 28% at 6L. No s/s of respiratory distress. Orders received to do CBC, CMP and to put him back on previous tube feeding rate until re-evaluated by RD.
[2023-12-16] MEDS: FUROSEMIDE 20 MG TABLET GT (08:42)
[2023-12-16] MEDS: SENNOSIDES 8.6 MG TABLET GT ×2 (08:42→21:21)
[2023-12-16] MEDS: FAMOTIDINE 20 MG TABLET GT ×2 (08:42→21:21)
[2023-12-16] MEDS: AMLODIPINE 5 MG TABLET GT (08:42)
[2023-12-16] MEDS: ACETAMINOPHEN 325 MG TABLET 650 MG GT ×2 (08:42→17:00)
--- NOTE | 2023-12-16 08:58 | PC.NURSE ---
0750 BREANNA HENDRICKS INFORMED ME THAT PATIENT IS TACHYCARDIC 108 AND 02 SAT 90-91%. SAW PATIENT ASKED HIM IF HE WAS FEELING SICK, NODDED NO. RESP THERAPIST JUAN CALLED AND INFORMED OF 02 SAT AND ASKED TO COME SEE PATIENT.
[2023-12-16 09:51] LABS: Basophils # (Auto) 0.1 Thou/mm3 (0.0-0.2); Basophils % (Auto) 0 % (0-2.5); Eosinophils % (Auto) 0 % (0-10); Hematocrit 35.4 % (41.0-53.0); Hemoglobin 11.8 g/dL (13.5-16.0); Immature Granulocytes % (Auto) 0 % (0-0); Immature Granulocytes Auto 0.06 Thou/mm3 (0.00-0.00); Lymphocytes # (Auto) 0.9 Thou/mm3 (1.0-4.8); Lymphocytes % (Auto) 5 % (10-50); Mean Corpuscular HGB Conc 33.3 g/dl (31.0-37.0); Mean Corpuscular Hemoglobin 28.4 pg (25.0-35.0); Mean Corpuscular Volume 85 fL (80-100); Monocytes # (Auto) 1.3 Thou/mm3 (0.0-0.8); Monocytes % (Auto) 8 % (0-12); Neutrophils # (Auto) 13.8 Thou/mm3 (1.8-7.7); Neutrophils % (Auto) 86 % (37-80); Nucleated Red Blood Cell % 0 /100 WBC (0); Platelet Count 327 Thou/mm3 (140-440); Red Blood Count 4.15 Miln/mm3 (4.50-5.90); White Blood Count 16.1 Thou/mm3 (3.8-10.6)
[2023-12-16 10:44] LABS: Alanine Aminotransferase 26 U/L (10-49); Albumin/Globulin Ratio 1.1 (1.2-2.2); Alkaline Phosphatase 116 U/L (46-116); Anion Gap 7 (7-16); Aspartate Amino Transferase 19 U/L (0-34); BUN/Creatinine Ratio 23 Ratio (12-20); Bilirubin,Total 1.3 mg/dL (0.3-1.2); Blood Urea Nitrogen 16 mg/dL (9-23); Calcium 9.6 mg/dL (8.3-10.6); Calcium (Corrected) 9.6 mg/dL (8.5-10.1); Carbon Dioxide 24.9 mMol/L (20.0-31.0); Chloride 100 mMol/L (98-107); Creatinine (Component) 0.7 mg/dL (0.6-1.3); Estimated Creatinine Clearance 109.2 mL/min (>60); Globulin 3.7 gm/dL (2.3-3.5); Glucose 152 mg/dL (74-106); Osmolality,Calculated 268 (275-295); Sodium 132 mMol/L (136-145); Total Protein 7.7 gm/dL (5.7-8.2); eGFR > 60 See Note
--- NOTE | 2023-12-16 11:40 | PC.NURSE ---
TEMP IS 101.6 RECTAL, UNABLE TO GIVE TYLENOL AT THIS TIME NOT DUE, GIVEN AT 0830 FOR H/A. WBC THIS AM IS 16.1. COOLING MEASURES STARTED AND DR SAWANT CALLED, MESSAGE LEFT ON VOICE MAIL.
--- NOTE | 2023-12-16 12:26 | PC.NURSE ---
1200 DR SAWANT RETURNED CALL. INFORMED OF ELEVATED TEMP 101.6 RECTAL AND WBC 16.1. ORDERS RECEIVED FOR LEVAQUIN 750 PER GT X 5 DAYS AND TO FOLLOW FEVER WORK UP.
[2023-12-16 13:09] LABS: Collection Type, Urine Catheter
[2023-12-16 13:10] LABS: Procalcitonin 1.39 ng/ml (0.0-0.49)
[2023-12-16 13:32] LABS: Bacteria,Urine 2+; Bilirubin,Urine Negative (Negative); Blood,Urine 1+ (Negative); Color,Urine Yellow (Lt Yel-Yel); Glucose, Urine Negative (Negative); Ketones,Urine Negative (Negative); Leukocyte Esterase,Urine Positive (Negative); Nitrite,Urine Negative (Negative); Protein,Urine Trace (Neg - Trace); RBC,Urine 8 /hpf (0-3); Specific Gravity,Urine 1.014 (1.001-1.035); Squamous Epithelial Cell,Urine < 1 /hpf (0-5); Urobilinogen,Urine Negative mg/dL (0.0-1.0); WBC,Urine 133 /hpf (0-5)
[2023-12-16 13:37] LABS: Clarity,Urine Hazy (Clear/Hazy)
--- NOTE | 2023-12-16 14:11 | PC.NURSE ---
DR SAWANT IN HOUSE INFORMED OF PROCALCITONIN ELEVATION AND UA RESULTS.
--- NOTE | 2023-12-16 14:33 | XR_ITS ---
Examination: AP chest single view Technique one AP portable upright chest single view Exam date and time: December 16, 2023 1631 hrs. Comparison August 30, 2023 Indications: Fever decreased O2 saturation today. Findings: Prominent right lower lobe pneumonia Normal heart size Mild ectasia thoracic aorta. Tracheostomy tube tip 6 cm above chris Impression: Significant right base pneumonia
--- NOTE | 2023-12-16 16:01 | PC.SS ---
IDT Meeting: team and MD met with SHANEKA Saleem to discuss final DC plans, went over all equipment ordered. Harper had questions for ST and dietitian who were both present during meeting, questions answered. DON asked Harper about medication pass, Harper stated she has not dispensed medication but has administered it to resident. Harper made aware there is a training check off list she must complete before resident DC. Resident will DC to home on 01/04 via [facility] transportation via gurney transport. This DC has been initiated by Harper, SSD offered to extend DC date until January, Harper stated it was too long and she would prefer December. Harper continues to come in for training with staff Fri, Fri and Fridays. This SSD has ordered all DME, nutrition supplies, RT supplies and portable suction machine. Harper has scheduled resident follow up appointment with PCP scheduled for January 04. This SSD will continue to meet with Harper and offers support for DC.
--- NOTE | 2023-12-16 16:05 | PC.IP ---
IP Note: Noted CXR result for 'early diffuse right lung pneumonia' and elevation of CBC/WBC's 16.1; UA results pos for bacteria 2+ and WBC's 133. Spoke with Dr. Diaz and order changed from Levaquin to Zosyn 3.375Gm IVPB every 8 hours x 7 days.
[2023-12-16] MEDS: INSULIN GLARGINE 100 UNIT/ML INSULN.PEN 14 UNIT SC (17:10)
[2023-12-16 19:02] LABS: Influenza A Ag Negative; Influenza B Ag Negative
[2023-12-16] MEDS: PIPERACILLIN SODIUM/TAZOBACTAM 3.375 GM VIAL IV (22:30)
[2023-12-17] VITALS (9 sets, daily range): BP systolic 93–110; BP diastolic 61–76; PULSE 76–98; RESP 18–21; TEMP 36.1–36.3; O2SAT 96–99
[2023-12-17] MEDS: ACETAMINOPHEN 325 MG TABLET 650 MG GT ×2 (02:17→13:48)
[2023-12-17] MEDS: INSULIN REGULAR, HUMAN 100 UNIT/ML VIAL SC ×2 (05:17→17:22)
[2023-12-17] MEDS: PIPERACILLIN SODIUM/TAZOBACTAM 3.375 GM VIAL IV ×3 (05:48→21:15)
[2023-12-17] MEDS: IPRATROPIUM/ALBUTEROL 3 ML AMPUL.NEB INH ×3 (07:15→18:20)
[2023-12-17] MEDS: FUROSEMIDE 20 MG TABLET GT (08:18)
[2023-12-17] MEDS: SENNOSIDES 8.6 MG TABLET GT ×2 (08:18→20:49)
[2023-12-17] MEDS: FAMOTIDINE 20 MG TABLET GT ×2 (08:18→20:49)
[2023-12-17] MEDS: INSULIN GLARGINE 100 UNIT/ML INSULN.PEN 14 UNIT SC (17:22)
--- NOTE | 2023-12-17 19:24 | PC.NURSE ---
Resident remains stable. Alert and responsive. Respiration even and unlabored. Continue on Zosyn as ordered for PNA, UTI. No adverse reaction noted. GT feeding tolerated well. No nausea and vomiting noted. Resident's tube feeding bolus was switched back to previous tube feeding rate at 70 ml/her due to previous episodes of vomiting, spoke with RD today and made aware. No recommendations given at this time. Resident to continue on continous tube feeding and to be re-evaled when resident close to be discharged to home. Resident's made aware of it.
--- NOTE | 2023-12-17 23:27 | PC.NURSE ---
Resident started on IV antibiotics Zosyn last night for pneumonia-ordered Q8 hours, no side effects noted
[2023-12-18] VITALS (8 sets, daily range): BP systolic 100–125; BP diastolic 64–74; PULSE 71–91; RESP 18–20; TEMP 36.2–36.6; O2SAT 97–100
[2023-12-18] MEDS: INSULIN REGULAR, HUMAN 100 UNIT/ML VIAL SC ×2 (05:07→17:02)
[2023-12-18] MEDS: PIPERACILLIN SODIUM/TAZOBACTAM 3.375 GM VIAL IV ×3 (05:26→22:23)
[2023-12-18] MEDS: IPRATROPIUM/ALBUTEROL 3 ML AMPUL.NEB INH ×4 (06:05→22:00)
[2023-12-18] MEDS: AMLODIPINE 5 MG TABLET GT (09:05)
[2023-12-18] MEDS: FUROSEMIDE 20 MG TABLET GT (09:06)
[2023-12-18] MEDS: FAMOTIDINE 20 MG TABLET GT ×2 (09:06→20:33)
[2023-12-18] MEDS: SENNOSIDES 8.6 MG TABLET GT ×2 (09:06→21:00)
--- NOTE | 2023-12-18 16:07 | PC.NURSE ---
Condition remains stable. Continue on Zosyn as ordered for PNA. No adverse reaction noted. Respiration even and unlabored. No s/s of respiratory distress noted . GT feeding tolerated well. No N/V noted
[2023-12-18] MEDS: INSULIN GLARGINE 100 UNIT/ML INSULN.PEN 14 UNIT SC (17:02)
[2023-12-18] MEDS: DOXAZOSIN 2 MG TABLET 4 MG GT (20:32)
[2023-12-19] VITALS (9 sets, daily range): BP systolic 108–129; BP diastolic 65–75; PULSE 70–89; RESP 17–20; TEMP 36.2–36.6; O2SAT 96–99
[2023-12-19] MEDS: IPRATROPIUM/ALBUTEROL 3 ML AMPUL.NEB INH ×4 (01:40→19:35)
--- NOTE | 2023-12-19 04:42 | PC.NURSE ---
Resident on Abt therapy. No adverse reactions noted. Tolerated well.
[2023-12-19] MEDS: INSULIN REGULAR, HUMAN 100 UNIT/ML VIAL SC ×2 (05:24→17:06)
[2023-12-19] MEDS: PIPERACILLIN SODIUM/TAZOBACTAM 3.375 GM VIAL IV ×2 (05:48→14:10)
--- NOTE | 2023-12-19 05:53 | PC.NURSE ---
Resident remains on IV antibiotics Zosyn for Pneumonia, no side effects noted, IV to right FA is patent
[2023-12-19] MEDS: AMLODIPINE 5 MG TABLET GT (08:34)
[2023-12-19] MEDS: SENNOSIDES 8.6 MG TABLET GT ×2 (08:35→20:12)
[2023-12-19] MEDS: FUROSEMIDE 20 MG TABLET GT (08:35)
[2023-12-19] MEDS: FAMOTIDINE 20 MG TABLET GT ×2 (08:35→20:12)
--- NOTE | 2023-12-19 12:01 | PC.SS ---
Resident seen for routine oral care by MAGY/Dr. Jackson, recommendation made for tooth extraction. Medical release to be completed by PCP and returned to [facility] to complete treatment plan. RP/Harper to be informed by SSD once date for treatment is made available by [facility].
--- NOTE | 2023-12-19 13:35 | ESPR_ITS ---
Progress Note - SubAcute SUBJECTIVE Fever:: none Shortness of Breath:: none GI:: no complaints Pain:: none OBJECTIVE Most recent vital signs: Last Vital Signs Temp 97.6 F 12/20/23 18:00 Pulse 71 12/20/23 19:00 Resp 20 12/20/23 19:00 BP 133/90 H 12/20/23 18:00 Pulse Ox 99 12/20/23 19:00 O2 Del Method Blow-by 12/20/23 18:00 O2 Flow Rate 6 12/20/23 19:00 FiO2 28 12/20/23 19:00 Neurological:: alert (responds to simple commands, shakes hands with his left) Speech:: none Answers questions:: no Respiratory:: shallow breathing Cardiovascular: RRR Abdomen: soft and nontender Extremities:: deformities Decubitus:: improved Tracheostomy:: to blow by Feeding per:: G tube Complaints:: none ASSESSMENT & PLAN Assessment: Pt. has certainly been awake and eye tracking some, does extend his left hand when offered a hand shake Diagnosis and treatment reviewed. All else stable, pt fully dependent for care. I had a detailed converiisation with pt's about his status and prognostic outlooks and explained in detail all her questions to which she was thankful even though more saddened by the reality of his condition and unpromising expectations. He shows no improvement in his chronic significant neurological deficit.No new issues Pt's requested Speech. Pt looks ready and seems to understand. Pt had a fever spike a few days ago and some emesis and pt's work up ordered. Empirical use of antibiotics namely Zosyn started for gram -ve bacilli and anaerobics as well. CXR showed pn, probably aspiration due to emesis. Now more stable. Plan: Current treatment as ongoing. Weaning attempts continued. Family updated
[2023-12-19] MEDS: INSULIN GLARGINE 100 UNIT/ML INSULN.PEN 14 UNIT SC (17:06)
[2023-12-19] MEDS: DOXAZOSIN 2 MG TABLET 4 MG GT (20:12)
[2023-12-20] VITALS (9 sets, daily range): BP systolic 99–133; BP diastolic 64–90; PULSE 69–78; RESP 19–20; TEMP 36.2–36.4; O2SAT 96–99
[2023-12-20] MEDS: IPRATROPIUM/ALBUTEROL 3 ML AMPUL.NEB INH ×4 (00:40→19:00)
[2023-12-20] MEDS: INSULIN REGULAR, HUMAN 100 UNIT/ML VIAL SC (06:00)
[2023-12-20] MEDS: FUROSEMIDE 20 MG TABLET GT (08:28)
[2023-12-20] MEDS: FAMOTIDINE 20 MG TABLET GT ×2 (08:28→20:41)
[2023-12-20] MEDS: SENNOSIDES 8.6 MG TABLET GT ×2 (08:28→20:41)
[2023-12-20] MEDS: ACETAMINOPHEN 325 MG TABLET 650 MG GT (08:31)
--- NOTE | 2023-12-20 13:36 | PC.NURSE ---
Resident remains on abt therapy no adverse reaction from abt noted at this time. Remains a febrile. Tolerating feeding wel no episodes of vomiting noted.Will continue to monitor.
[2023-12-20] MEDS: PIPERACILLIN SODIUM/TAZOBACTAM 3.375 GM VIAL IV ×2 (14:05→22:19)
[2023-12-20] MEDS: INSULIN GLARGINE 100 UNIT/ML INSULN.PEN 14 UNIT SC (16:56)
[2023-12-20] MEDS: DOXAZOSIN 2 MG TABLET 4 MG GT (20:40)
[2023-12-21] VITALS (9 sets, daily range): BP systolic 111–142; BP diastolic 68–82; PULSE 55–82; RESP 18–22; TEMP 36.1–36.2; O2SAT 97–98
[2023-12-21] MEDS: IPRATROPIUM/ALBUTEROL 3 ML AMPUL.NEB INH ×4 (01:25→19:10)
[2023-12-21] MEDS: PIPERACILLIN SODIUM/TAZOBACTAM 3.375 GM VIAL IV ×3 (05:44→22:07)
[2023-12-21] MEDS: FUROSEMIDE 20 MG TABLET GT (08:44)
[2023-12-21] MEDS: FAMOTIDINE 20 MG TABLET GT ×2 (08:44→20:29)
[2023-12-21] MEDS: SENNOSIDES 8.6 MG TABLET GT ×2 (08:44→20:29)
--- NOTE | 2023-12-21 12:42 | PC.NURSE ---
Resident is awake and alert, follows commands. Receives a meal tray, refuses to eat, only able to get patient to take 2 bites. will continue to encourage resident.
--- NOTE | 2023-12-21 14:00 | PC.NURSE ---
Resident remains on abt therapy with no S/E noted. Seems to be tolerating abt well. Remains a febrile, no episodes of nausea or vomiting. tolerating continues tube feeding well. will continue to monitor.
[2023-12-21] MEDS: INSULIN GLARGINE 100 UNIT/ML INSULN.PEN 14 UNIT SC (17:06)
[2023-12-21] MEDS: DOXAZOSIN 2 MG TABLET 4 MG GT (20:29)
[2023-12-22] VITALS (9 sets, daily range): BP systolic 102–124; BP diastolic 63–74; PULSE 62–72; RESP 16–20; TEMP 36.4–36.6; O2SAT 98–100
[2023-12-22] MEDS: IPRATROPIUM/ALBUTEROL 3 ML AMPUL.NEB INH ×4 (01:00→16:22)
[2023-12-22] MEDS: PIPERACILLIN SODIUM/TAZOBACTAM 3.375 GM VIAL IV ×2 (05:34→21:13)
[2023-12-22] MEDS: AMLODIPINE 5 MG TABLET GT (08:49)
[2023-12-22] MEDS: SENNOSIDES 8.6 MG TABLET GT ×2 (08:50→20:25)
[2023-12-22] MEDS: FAMOTIDINE 20 MG TABLET GT ×2 (08:50→20:25)
[2023-12-22] MEDS: FUROSEMIDE 20 MG TABLET GT (08:50)
--- NOTE | 2023-12-22 08:55 | PC.SS ---
This SSD received call from SHANEKA Saleem who stated she would not be in for training until Friday. This SSD reminded her of the importance of staying on schedule and completing all training needed for DC. Harper has initiated this DC to home, she states she stays busy with her appointments and it is what is keeping her from being here on scheduled days. She stated she spoke with resident PCP who stated it would be a good idea resident stays in place until he is fully recovered from current illness. This SSD informed Harper we can pause DC planning until all her appointments are complete and she has her home ready. Harper was upset and asked this SSD to be more compassionate towards her and other families. This SSD informed Harper of the amount of support she is currently receiving, and the importance of saying consistent with schedule for training for safety. Harper stated she is having difficultly financially and could not be here daily for training. This SSD will continue to speak with Harper and check in on DC planning and training and will assist as possible. Resident is scheduled to DC to home per request of Harper on 01/04.
--- NOTE | 2023-12-22 14:35 | PC.SS ---
Resident seen by road conductor/Dr. Garces, he had toe nails trimmed with no new orders or recommendations he will continue current care.
[2023-12-22] MEDS: INSULIN GLARGINE 100 UNIT/ML INSULN.PEN 14 UNIT SC (17:21)
[2023-12-22] MEDS: DOXAZOSIN 2 MG TABLET 4 MG GT (20:24)
[2023-12-23] VITALS (9 sets, daily range): BP systolic 102–157; BP diastolic 64–75; PULSE 60–78; RESP 18–20; TEMP 36.1–36.4; O2SAT 96–99
[2023-12-23] MEDS: IPRATROPIUM/ALBUTEROL 3 ML AMPUL.NEB INH ×4 (00:47→18:10)
[2023-12-23] MEDS: PIPERACILLIN SODIUM/TAZOBACTAM 3.375 GM VIAL IV ×2 (05:43→13:10)
[2023-12-23] MEDS: FUROSEMIDE 20 MG TABLET GT (08:14)
[2023-12-23] MEDS: FAMOTIDINE 20 MG TABLET GT ×2 (08:14→21:13)
--- NOTE | 2023-12-23 13:10 | ESPR_ITS ---
Progress Note - SubAcute SUBJECTIVE Fever:: none Shortness of Breath:: none GI:: no complaints Pain:: none OBJECTIVE Most recent vital signs: Last Vital Signs Temp 97.7 F 12/27/23 17:19 Pulse 67 12/27/23 18:05 Resp 18 12/27/23 18:05 BP 109/72 12/27/23 17:19 Pulse Ox 99 12/27/23 18:05 O2 Del Method Blow-by 12/26/23 06:00 O2 Flow Rate 6 12/27/23 18:05 FiO2 28 12/27/23 18:05 Neurological:: alert (responds to simple commands, shakes hands with his left) Speech:: none Answers questions:: no Respiratory:: shallow breathing Cardiovascular: RRR Abdomen: soft and nontender Extremities:: deformities Decubitus:: improved Tracheostomy:: to blow by Feeding per:: G tube Complaints:: none ASSESSMENT & PLAN Assessment: Pt. has certainly been awake and eye tracking some, does extend his left hand when offered a hand shake Diagnosis and treatment reviewed. All else stable, pt fully dependent for care. I had a detailed converiisation with pt's about his status and prognostic outlooks and explained in detail all her questions to which she was thankful even though more saddened by the reality of his condition and unpromising expectations. He shows no improvement in his chronic significant neurological deficit.No new issues Pt's requested Speech. Pt looks ready and seems to understand. Pt had a fever spike a few days ago and some emesis and pt's work up ordered. Empirical use of antibiotics namely Zosyn started for gram -ve bacilli and anaerobics as well. CXR showed pn, probably aspiration due to emesis. Now more stable. Plan: Current treatment as ongoing. Weaning attempts continued. Family updated
[2023-12-23] MEDS: ONDANSETRON HCL 4 MG TABLET PO (14:44)
[2023-12-23] MEDS: INSULIN GLARGINE 100 UNIT/ML INSULN.PEN 14 UNIT SC (17:30)
[2023-12-23] MEDS: SENNOSIDES 8.6 MG TABLET GT (21:13)
[2023-12-24] VITALS (9 sets, daily range): BP systolic 110–124; BP diastolic 65–77; PULSE 70–80; RESP 18–19; TEMP 36.1–36.6; O2SAT 97–99
[2023-12-24] MEDS: IPRATROPIUM/ALBUTEROL 3 ML AMPUL.NEB INH ×4 (01:00→18:58)
[2023-12-24] MEDS: AMLODIPINE 5 MG TABLET GT (08:55)
[2023-12-24] MEDS: FUROSEMIDE 20 MG TABLET GT (08:56)
[2023-12-24] MEDS: FAMOTIDINE 20 MG TABLET GT ×2 (08:56→21:05)
[2023-12-24] MEDS: SENNOSIDES 8.6 MG TABLET GT ×2 (08:56→21:05)
--- NOTE | 2023-12-24 16:54 | XR_ITS ---
Examination: Testicular sonography complete Technique: Multiple high resolution grayscale sonographic images testes, assessment arterial inflow venous outflow Doppler spectral analysis carful analysis Exam date and time: December 24, 2023 11:54 PM Indications: Heart and left testicle on examination by provider one week ago Findings: Right testis 4.5 x 1.6 x 2.6 cm Epididymis 11 mm Arterial flow testicle. No testicular mass Scrotal wall thickening up to 9 mm Left testis 3.9 x 1.8 x 2.9 cm Technologist describes heterogeneous testicle which I do not appreciate Arterial flow to the testicle. No testicular mass The scrotal wall is thickened not commented on by the technologist on the left side measuring up to 6 mm Impression: No testicular torsion or testicular mass Left epididymitis Scrotal wall thickening on the left and right, consider infectious inflammatory change, no scrotal abscess
--- NOTE | 2023-12-24 17:11 | PC.NURSE ---
BLANQUITA Mathias reported information given by resident's about regarding a hardened area noted to his left lateral testicle. Vehicle Operator assessed resident affected area and noted a hardened area non prominent but hard to the touch. Notified MD new order for US of affected area was given. Resident currently had a monitoring for this area. Will await for US tech to carry out procedure. Resident's Harper was made aware as she remains at res. bedside at this time.
[2023-12-24] MEDS: INSULIN GLARGINE 100 UNIT/ML INSULN.PEN 14 UNIT SC (17:30)
[2023-12-24] MEDS: DOXAZOSIN 2 MG TABLET 4 MG GT (21:05)
[2023-12-25] VITALS (9 sets, daily range): BP systolic 97–117; BP diastolic 60–76; PULSE 67–76; RESP 16–19; TEMP 36.3–36.4; O2SAT 98–99
--- NOTE | 2023-12-25 00:17 | PC.NURSE ---
Radialogy came to residents room and did a testicular US.
[2023-12-25] MEDS: IPRATROPIUM/ALBUTEROL 3 ML AMPUL.NEB INH ×4 (01:44→17:35)
[2023-12-25] MEDS: AMLODIPINE 5 MG TABLET GT (08:17)
[2023-12-25] MEDS: FUROSEMIDE 20 MG TABLET GT (08:18)
[2023-12-25] MEDS: SENNOSIDES 8.6 MG TABLET GT ×2 (08:18→20:35)
[2023-12-25] MEDS: FAMOTIDINE 20 MG TABLET GT ×2 (08:18→20:35)
--- NOTE | 2023-12-25 11:49 | PC.NURSE ---
DR SAWANT CALLED AND GIVEN RESULTS OF TESTICULAR US. V/S STABLE, NO FEVER WILL MONITOR FOR NOW. NO ACTION NEEDED AT THIS TIME. IF FEVER DEVELOPS DUE CBC.
--- NOTE | 2023-12-25 12:39 | PC.IP ---
IP Note: Per RN, Dr. Diaz made aware of Testicular US results, no torsion or testicular mass. Left epididymitis. Copy of results to Janette MARTINEZN caring for this resident. Advised to carefully monitor scrotal area for any redness, increased swelling, and/or systemic signs of fever or increased HR. Janette will report this information in report to oncoming shift. Resident does not have any fever or increase in HR or RR at this time. No c/o pain, but will be monitored for any complaints.
[2023-12-25] MEDS: INSULIN GLARGINE 100 UNIT/ML INSULN.PEN 14 UNIT SC (17:17)
[2023-12-25] MEDS: DOXAZOSIN 2 MG TABLET 4 MG GT (20:35)
[2023-12-26] VITALS (9 sets, daily range): BP systolic 103–129; BP diastolic 65–80; PULSE 65–81; RESP 16–20; TEMP 36.4–36.6; O2SAT 96–100
[2023-12-26] MEDS: IPRATROPIUM/ALBUTEROL 3 ML AMPUL.NEB INH ×4 (00:11→18:36)
[2023-12-26] MEDS: AMLODIPINE 5 MG TABLET GT (08:56)
[2023-12-26] MEDS: FAMOTIDINE 20 MG TABLET GT ×2 (08:57→20:18)
[2023-12-26] MEDS: FUROSEMIDE 20 MG TABLET GT (08:57)
[2023-12-26] MEDS: SENNOSIDES 8.6 MG TABLET GT ×2 (08:57→20:18)
[2023-12-26] MEDS: INSULIN GLARGINE 100 UNIT/ML INSULN.PEN 14 UNIT SC (17:27)
[2023-12-26] MEDS: DOXAZOSIN 2 MG TABLET 4 MG GT (20:18)
[2023-12-27] VITALS (9 sets, daily range): BP systolic 102–150; BP diastolic 64–82; PULSE 65–79; RESP 17–20; TEMP 36.1–36.5; O2SAT 97–100
[2023-12-27] MEDS: IPRATROPIUM/ALBUTEROL 3 ML AMPUL.NEB INH ×4 (00:28→18:05)
[2023-12-27] MEDS: FAMOTIDINE 20 MG TABLET GT ×2 (09:39→20:21)
[2023-12-27] MEDS: FUROSEMIDE 20 MG TABLET GT (09:39)
[2023-12-27] MEDS: SENNOSIDES 8.6 MG TABLET GT ×2 (09:39→20:22)
[2023-12-27] MEDS: INSULIN GLARGINE 100 UNIT/ML INSULN.PEN 14 UNIT SC (17:10)
[2023-12-27] MEDS: DOXAZOSIN 2 MG TABLET 4 MG GT (20:21)
--- NOTE | 2023-12-27 22:00 | ESPR_ITS ---
Progress Note - SubAcute SUBJECTIVE Fever:: none Shortness of Breath:: none GI:: no complaints Pain:: none OBJECTIVE Most recent vital signs: Last Vital Signs Temp 97.7 F 12/27/23 17:19 Pulse 67 12/27/23 18:05 Resp 18 12/27/23 18:05 BP 109/72 12/27/23 17:19 Pulse Ox 99 12/27/23 18:05 O2 Del Method Blow-by 12/26/23 06:00 O2 Flow Rate 6 12/27/23 18:05 FiO2 28 12/27/23 18:05 Neurological:: alert (responds to simple commands, shakes hands with his left) Speech:: none Answers questions:: no Respiratory:: shallow breathing Cardiovascular: RRR Abdomen: soft and nontender Extremities:: deformities Decubitus:: improved Tracheostomy:: to blow by Feeding per:: G tube Complaints:: none ASSESSMENT & PLAN Assessment: Pt. has certainly been awake and eye tracking some, does extend his left hand when offered a hand shake Diagnosis and treatment reviewed. All else stable, pt fully dependent for care. I had a detailed converiisation with pt's about his status and prognostic outlooks and explained in detail all her questions to which she was thankful even though more saddened by the reality of his condition and unpromising expectations. He shows no improvement in his chronic significant neurological deficit.No new issues Pt's requested Speech. Pt looks ready and seems to understand. Pt had a fever spike a few days ago and some emesis and pt's work up ordered. Empirical use of antibiotics namely Zosyn started for gram -ve bacilli and anaerobics as well. CXR showed pn, probably aspiration due to emesis. Now more stable. L testicular ultrasound r/o any torsion, fluid or abscess, no hydrocele. No local tenderness. ? epididymitis. Plan: Current treatment as ongoing. Weaning attempts continued. Family updated
[2023-12-28] VITALS (9 sets, daily range): BP systolic 106–128; BP diastolic 68–82; PULSE 60–80; RESP 17–99; TEMP 36.1–36.4; O2SAT 98–100
[2023-12-28] MEDS: IPRATROPIUM/ALBUTEROL 3 ML AMPUL.NEB INH ×4 (00:40→20:00)
[2023-12-28] MEDS: AMLODIPINE 5 MG TABLET GT (08:57)
[2023-12-28] MEDS: SENNOSIDES 8.6 MG TABLET GT ×2 (08:58→21:19)
[2023-12-28] MEDS: FAMOTIDINE 20 MG TABLET GT ×2 (08:58→21:19)
[2023-12-28] MEDS: FUROSEMIDE 20 MG TABLET GT (08:58)
[2023-12-28] MEDS: CARBAMIDE PEROXIDE OTIC SOL 15 ML BTL 5 DROP BOTH EARS ×2 (08:58→21:18)
[2023-12-28] MEDS: INSULIN GLARGINE 100 UNIT/ML INSULN.PEN 14 UNIT SC (18:14)
[2023-12-28] MEDS: DOXAZOSIN 2 MG TABLET 4 MG GT (21:19)
[2023-12-28] MEDS: ACETAMINOPHEN 325 MG TABLET 650 MG GT (21:19)
[2023-12-29] VITALS (9 sets, daily range): BP systolic 96–147; BP diastolic 60–88; PULSE 69–80; RESP 18–20; TEMP 36.2–36.4; O2SAT 98–99
[2023-12-29] MEDS: IPRATROPIUM/ALBUTEROL 3 ML AMPUL.NEB INH ×4 (00:40→19:25)
[2023-12-29] MEDS: CARBAMIDE PEROXIDE OTIC SOL 15 ML BTL 5 DROP BOTH EARS ×2 (09:14→20:55)
[2023-12-29] MEDS: AMLODIPINE 5 MG TABLET GT (09:21)
[2023-12-29] MEDS: FUROSEMIDE 20 MG TABLET GT (09:22)
[2023-12-29] MEDS: FAMOTIDINE 20 MG TABLET GT ×2 (09:22→20:56)
[2023-12-29] MEDS: SENNOSIDES 8.6 MG TABLET GT ×2 (09:22→20:56)
--- NOTE | 2023-12-29 13:54 | PC.SS ---
This SSD met with resident SHANEKA Harper to discuss DC planning. Harper stated she has noticed a change in resident condition and feels he may need to remain in current care for a longer period of time. Harper spoke with resident and asked him if he was ok with staying longer, resident nodded his head yes, she explained everything to resident and reason behind him staying in facility longer, resident nodded his head yes. Harper stated she spoke with family MD who asked her to look into hospice, MD informed her hospice care at home. Harper stated she has an appointment with [facility] and would provide an update at a later time. This SSD will inform all agencies involved and DME company to pause on all orders. This SSD will continue to provide Harper and resident with support.
[2023-12-29] MEDS: INSULIN GLARGINE 100 UNIT/ML INSULN.PEN 14 UNIT SC (17:15)
[2023-12-30] VITALS (9 sets, daily range): BP systolic 106–144; BP diastolic 68–80; PULSE 48–87; RESP 18–20; TEMP 36.1–36.4; O2SAT 97–99
[2023-12-30] MEDS: IPRATROPIUM/ALBUTEROL 3 ML AMPUL.NEB INH ×4 (00:55→19:15)
[2023-12-30] MEDS: AMLODIPINE 5 MG TABLET GT (09:17)
[2023-12-30] MEDS: SENNOSIDES 8.6 MG TABLET GT ×2 (09:18→20:16)
[2023-12-30] MEDS: FAMOTIDINE 20 MG TABLET GT ×2 (09:18→20:16)
[2023-12-30] MEDS: FUROSEMIDE 20 MG TABLET GT (09:18)
[2023-12-30] MEDS: CARBAMIDE PEROXIDE OTIC SOL 15 ML BTL 5 DROP BOTH EARS ×2 (09:18→20:16)
[2023-12-30] MEDS: ACETAMINOPHEN 325 MG TABLET 650 MG GT ×2 (13:00→20:19)
--- NOTE | 2023-12-30 13:35 | XR_ITS ---
Examination: AP chest single view Technique: AP portable semiupright chest single view Exam date and time: December 30, 2023 1402 hrs. Comparison December 16, 2023 Indications: Coughing congestion, clinical diagnosis aspiration pneumonia Findings: Tracheostomy tube tip 4 cm above chris Bilateral perihilar basilar pneumonia, more severe on the right Mild prominence left ventricle Significant osteopenia Impression: Significant bilateral pneumonia, consider aspiration pneumonia
--- NOTE | 2023-12-30 14:33 | PC.RT ---
RT called to pt room for stridorous/coarse breath sounds. Pt titrated to 10/35 to help bring up o2 sat from 91-92, suction catheter passed easily with very few secretions. Xray ordered to confirm location of trach tube and to rule out possible aspiration. Pt o2 sat 98% at time of RT departure, no respiratory distress noted.
[2023-12-30] MEDS: INSULIN REGULAR, HUMAN 100 UNIT/ML VIAL SC (17:33)
[2023-12-30] MEDS: INSULIN GLARGINE 100 UNIT/ML INSULN.PEN 14 UNIT SC (17:34)
--- NOTE | 2023-12-30 19:07 | PC.NURSE ---
Resident is awake and had large emesis, given zofran.Reported to charge nurse.
--- NOTE | 2023-12-30 19:14 | PC.NURSE ---
Resident 02 sat, dropped to 88, called respiratory, increased oxygen, patient continue to have respiratory distress, X-ray ordered.
[2023-12-30] MEDS: DOXAZOSIN 2 MG TABLET 4 MG GT (20:16)
[2023-12-30] MEDS: ONDANSETRON HCL 4 MG TABLET PO (20:19)
[2023-12-30 20:47] LABS: Basophils # (Auto) 0.1 Thou/mm3 (0.0-0.2); Basophils % (Auto) 0 % (0-2.5); Eosinophils % (Auto) 0 % (0-10); Hematocrit 35.3 % (41.0-53.0); Hemoglobin 11.9 g/dL (13.5-16.0); Immature Granulocytes % (Auto) 0 % (0-0); Immature Granulocytes Auto 0.09 Thou/mm3 (0.00-0.00); Lymphocytes # (Auto) 1.2 Thou/mm3 (1.0-4.8); Lymphocytes % (Auto) 5 % (10-50); Mean Corpuscular HGB Conc 33.7 g/dl (31.0-37.0); Mean Corpuscular Hemoglobin 28.9 pg (25.0-35.0); Mean Corpuscular Volume 86 fL (80-100); Monocytes # (Auto) 0.9 Thou/mm3 (0.0-0.8); Monocytes % (Auto) 4 % (0-12); Neutrophils # (Auto) 20.8 Thou/mm3 (1.8-7.7); Neutrophils % (Auto) 90 % (37-80); Nucleated Red Blood Cell % 0 /100 WBC (0); RDW Standard Deviation 44.6 fL (35.1-43.9); Red Blood Count 4.12 Miln/mm3 (4.50-5.90)
[2023-12-30 20:49] LABS: White Blood Count 23.2 Thou/mm3 (3.8-10.6)
[2023-12-30 21:08] LABS: Platelet Count 391 Thou/mm3 (140-440)
[2023-12-31] VITALS (9 sets, daily range): BP systolic 100–111; BP diastolic 63–73; PULSE 73–80; RESP 17–20; TEMP 36.1–36.4; O2SAT 97–100
[2023-12-31] MEDS: IPRATROPIUM/ALBUTEROL 3 ML AMPUL.NEB INH ×4 (00:40→18:35)
--- NOTE | 2023-12-31 03:03 | PC.NURSE ---
@[id number] resident had a emesis x1, yellow dark brown noted. v/s 129/69, 97,7 hr 98. Medicated with zofran and tylenol. RN aware. Tube feeding off for 2 hours. Spot check bs 115. Will continue to monitor.
[2023-12-31] MEDS: CARBAMIDE PEROXIDE OTIC SOL 15 ML BTL 5 DROP BOTH EARS ×2 (09:16→20:05)
[2023-12-31] MEDS: FAMOTIDINE 20 MG TABLET GT ×2 (09:17→20:11)
[2023-12-31] MEDS: ONDANSETRON HCL 4 MG TABLET PO (09:17)
[2023-12-31] MEDS: FUROSEMIDE 20 MG TABLET GT (09:17)
[2023-12-31] MEDS: SENNOSIDES 8.6 MG TABLET GT ×2 (09:17→20:11)
[2023-12-31] MEDS: ACETAMINOPHEN 325 MG TABLET 650 MG GT (09:17)
--- NOTE | 2023-12-31 13:35 | PC.NURSE ---
. reviewed resident CBC result, WBC was 23.2, resident V/S stable, no new order received at this time, we will continue to monitor.
--- NOTE | 2023-12-31 15:58 | PC.SS ---
Resident Harper is at bedside and continues to come in as scheduled for training on how to care for resident at home. Resident will remain in current care as he is not medically cleared to return home at this time. Harper would like to continue to assist with turning and changing of resident on the days she is present. Harper asked resident if it would be ok if she continued to help, he nodded his head yes. This SSD informed BARYTES GRINDER and spoke with SANTA, Harper will be allowed to assist with care of her resident in facility as resident prefers her to do so. this SSD will continue to make daily contact with resident and offer support as needed.
--- NOTE | 2023-12-31 16:04 | PC.SS ---
This SSD called [facility] to cancel order for bed and lift, spoke with [employer] sales representative who stated the order had been canceled as per request of resident SHANEKA Saleem. She stated she spoke with Harper to confirm delivery, Harper informed her the DC was canceled as of now. Faina AlcalaD callled [facility] and [facility] to cancel all other others for supplies.
[2023-12-31] MEDS: INSULIN GLARGINE 100 UNIT/ML INSULN.PEN 14 UNIT SC (18:12)
[2023-12-31] MEDS: DOXAZOSIN 2 MG TABLET 4 MG GT (20:10)
--- NOTE | 2023-12-31 21:15 | ESPR_ITS ---
Progress Note - SubAcute SUBJECTIVE Fever:: none Shortness of Breath:: none GI:: no complaints Pain:: none OBJECTIVE Most recent vital signs: Last Vital Signs Temp 97.7 F 01/01/24 17:11 Pulse 80 01/01/24 17:11 Resp 16 01/01/24 17:11 BP 113/67 01/01/24 17:11 Pulse Ox 98 01/01/24 17:11 O2 Del Method Blow-by 01/01/24 17:11 O2 Flow Rate 8 01/01/24 12:45 FiO2 35 01/01/24 12:45 Neurological:: alert (responds to simple commands, shakes hands with his left) Speech:: none Answers questions:: no Respiratory:: shallow breathing Cardiovascular: RRR Abdomen: soft and nontender Extremities:: deformities Decubitus:: improved Tracheostomy:: to blow by Feeding per:: G tube Complaints:: none ASSESSMENT & PLAN Assessment: Pt. has certainly been awake and eye tracking some, does extend his left hand when offered a hand shake Diagnosis and treatment reviewed. All else stable, pt fully dependent for care. I had a detailed converiisation with pt's about his status and prognostic outlooks and explained in detail all her questions to which she was thankful even though more saddened by the reality of his condition and unpromising expectations. He shows no improvement in his chronic significant neurological deficit.No new issues Pt's requested Speech. Pt looks ready and seems to understand. Pt had a fever spike a few days ago and some emesis and pt's work up ordered. Empirical use of antibiotics namely Zosyn started for gram -ve bacilli and anaerobics as well. CXR showed pn, probably aspiration due to emesis. Now more stable. L testicular ultrasound r/o any torsion, fluid or abscess, no hydrocele. No local tenderness. ? epididymitis. Plan: Current treatment as ongoing. . Family updated. It seems that pt's has finally decided to keep him here rather than care for him at home for lack of adequate help.
[2024-01-01] VITALS (9 sets, daily range): BP systolic 101–118; BP diastolic 65–79; PULSE 73–83; RESP 16–20; TEMP 36.4–36.5; O2SAT 96–99
[2024-01-01] MEDS: IPRATROPIUM/ALBUTEROL 3 ML AMPUL.NEB INH ×4 (01:00→19:00)
[2024-01-01] MEDS: FAMOTIDINE 20 MG TABLET GT ×2 (09:16→20:13)
[2024-01-01] MEDS: FUROSEMIDE 20 MG TABLET GT (09:16)
[2024-01-01] MEDS: SENNOSIDES 8.6 MG TABLET GT ×2 (09:16→20:13)
[2024-01-01] MEDS: AMLODIPINE 5 MG TABLET GT (09:18)
--- NOTE | 2024-01-01 13:20 | PC.SS ---
This SSD received call from resident SHANEKA Saleem who stated she spoke with [facility] regarding hospice care at home. Appointment scheduled by Harper for on sight visit at bedside on January 06 between 12-2 pm. This SSD notified DON of plan.
--- NOTE | 2024-01-01 14:11 | PC.SS ---
Room visit: Resident is laying in bed with head of the bed elevated with call light properly placed with no signs of distress. Resident has no changes in care or condition as he remains on blow by with trach in place and GT for medication and nutrition. He will continue to have all subacute care needs met by staff. This SSD will make daily contact with resident and offer support as needed. Resident contiues to come in for visits on Fri, Fri, and Fridays.
[2024-01-01] MEDS: INSULIN GLARGINE 100 UNIT/ML INSULN.PEN 14 UNIT SC (17:31)
[2024-01-01] MEDS: DOXAZOSIN 2 MG TABLET 4 MG GT (20:12)
[2024-01-02] VITALS (9 sets, daily range): BP systolic 99–126; BP diastolic 64–76; PULSE 68–84; RESP 18–20; TEMP 36.3–36.5; O2SAT 98–99
[2024-01-02] MEDS: IPRATROPIUM/ALBUTEROL 3 ML AMPUL.NEB INH ×4 (01:35→19:00)
[2024-01-02] MEDS: FUROSEMIDE 20 MG TABLET GT (09:05)
[2024-01-02] MEDS: SENNOSIDES 8.6 MG TABLET GT ×2 (09:05→20:16)
[2024-01-02] MEDS: AMLODIPINE 5 MG TABLET GT (09:05)
[2024-01-02] MEDS: FAMOTIDINE 20 MG TABLET GT ×2 (09:05→20:16)
[2024-01-02] MEDS: INSULIN GLARGINE 100 UNIT/ML INSULN.PEN 14 UNIT SC (17:06)
[2024-01-02] MEDS: DOXAZOSIN 2 MG TABLET 4 MG GT (20:16)
[2024-01-03] VITALS (9 sets, daily range): BP systolic 90–116; BP diastolic 53–71; PULSE 66–89; RESP 16–19; TEMP 36.2–36.6; O2SAT 95–99
[2024-01-03] MEDS: IPRATROPIUM/ALBUTEROL 3 ML AMPUL.NEB INH ×4 (01:15→18:55)
[2024-01-03] MEDS: FAMOTIDINE 20 MG TABLET GT ×2 (08:16→20:08)
[2024-01-03] MEDS: FUROSEMIDE 20 MG TABLET GT (08:17)
[2024-01-03] MEDS: SENNOSIDES 8.6 MG TABLET GT ×2 (08:17→20:08)
[2024-01-03] MEDS: INSULIN GLARGINE 100 UNIT/ML INSULN.PEN 14 UNIT SC (17:16)
[2024-01-03] MEDS: DOXAZOSIN 2 MG TABLET 4 MG GT (20:07)
[2024-01-04] VITALS (8 sets, daily range): BP systolic 96–130; BP diastolic 58–75; PULSE 65–80; RESP 16–19; TEMP 36.1–36.4; O2SAT 97–99
[2024-01-04] MEDS: IPRATROPIUM/ALBUTEROL 3 ML AMPUL.NEB INH ×4 (00:55→19:20)
[2024-01-04] MEDS: FAMOTIDINE 20 MG TABLET GT ×2 (08:50→21:05)
[2024-01-04] MEDS: AMLODIPINE 5 MG TABLET GT (08:50)
[2024-01-04] MEDS: FUROSEMIDE 20 MG TABLET GT (08:50)
[2024-01-04] MEDS: SENNOSIDES 8.6 MG TABLET GT ×2 (08:50→21:05)
[2024-01-04] MEDS: INSULIN GLARGINE 100 UNIT/ML INSULN.PEN 14 UNIT SC (17:11)
[2024-01-04] MEDS: DOXAZOSIN 2 MG TABLET 4 MG GT (21:05)
--- NOTE | 2024-01-04 22:17 | ESPR_ITS ---
Progress Note - SubAcute DIAGNOSIS (1) Aneurysmal subarachnoid hemorrhage: Status: Chronic (2) DM type 2, goal HbA1c < 9%: Status: Chronic (3) Chronic respiratory failure: Status: Chronic (4) Tracheostomy in place: Status: Chronic (5) PEG (percutaneous endoscopic gastrostomy) status: Status: Chronic (6) Essential (primary) hypertension: Status: Acute SUBJECTIVE Fever:: none Shortness of Breath:: none GI:: no complaints Pain:: none OBJECTIVE Most recent vital signs: Last Vital Signs Temp 97.2 F 01/04/24 17:44 Pulse 75 01/04/24 17:44 Resp 18 01/04/24 17:44 BP 100/64 01/04/24 17:44 Pulse Ox 97 01/04/24 17:44 O2 Del Method Blow-by 01/04/24 17:44 O2 Flow Rate 6 01/04/24 11:15 FiO2 01/04/24 11:15 Neurological:: alert (responds to simple commands, shakes hands with his left) Speech:: none Answers questions:: no Respiratory:: shallow breathing Cardiovascular: RRR Abdomen: soft and nontender Extremities:: deformities Decubitus:: improved Tracheostomy:: to blow by Feeding per:: G tube Complaints:: none ASSESSMENT & PLAN Assessment: Pt. has certainly been awake and eye tracking some, does extend his left hand when offered a hand shake Diagnosis and treatment reviewed. All else stable, pt fully dependent for care. I had a detailed converiisation with pt's about his status and prognostic outlooks and explained in detail all her questions to which she was thankful even though more saddened by the reality of his condition and unpromising expectations. He shows no improvement in his chronic significant neurological deficit.No new issues Plans to take him home on hold for the time at pt's 's request for lack of resources to take good care of him at home. Plan: Current treatment as ongoing. . Family updated.
[2024-01-05] VITALS (9 sets, daily range): BP systolic 98–118; BP diastolic 65–79; PULSE 58–77; RESP 16–18; TEMP 36.2–36.7; O2SAT 98–100
[2024-01-05] MEDS: IPRATROPIUM/ALBUTEROL 3 ML AMPUL.NEB INH ×4 (01:40→19:30)
[2024-01-05] MEDS: AMLODIPINE 5 MG TABLET GT (08:56)
[2024-01-05] MEDS: FUROSEMIDE 20 MG TABLET GT (08:57)
[2024-01-05] MEDS: SENNOSIDES 8.6 MG TABLET GT ×2 (08:57→21:01)
[2024-01-05] MEDS: FAMOTIDINE 20 MG TABLET GT ×2 (08:57→21:01)
--- NOTE | 2024-01-05 16:29 | PC.SS ---
This SSD met with SHANEKA Saleem at bedside she stated she spoke with MD after careful consideration she has decided to cancel Hospice eval appointment with [facility]. This SSD will continue to make room visits and will updtae DC plan once RP speaks with family. This SSD will offer support as needed.
[2024-01-05] MEDS: INSULIN GLARGINE 100 UNIT/ML INSULN.PEN 14 UNIT SC (17:12)
[2024-01-05] MEDS: DOXAZOSIN 2 MG TABLET 4 MG GT (21:01)
[2024-01-06] VITALS (10 sets, daily range): BP systolic 112–136; BP diastolic 69–89; PULSE 59–87; RESP 16–20; TEMP 36.2–36.5; O2SAT 98–100
[2024-01-06] MEDS: IPRATROPIUM/ALBUTEROL 3 ML AMPUL.NEB INH ×4 (00:05→19:45)
[2024-01-06] MEDS: AMLODIPINE 5 MG TABLET GT (09:07)
[2024-01-06] MEDS: FUROSEMIDE 20 MG TABLET GT (09:08)
[2024-01-06] MEDS: FAMOTIDINE 20 MG TABLET GT ×2 (09:08→20:47)
[2024-01-06] MEDS: SENNOSIDES 8.6 MG TABLET GT ×2 (09:08→20:47)
[2024-01-06] MEDS: ONDANSETRON HCL 4 MG TABLET PO (09:14)
--- NOTE | 2024-01-06 13:15 | ESPR_ITS ---
Progress Note - SubAcute DIAGNOSIS (1) Aneurysmal subarachnoid hemorrhage: Status: Chronic (2) DM type 2, goal HbA1c < 9%: Status: Chronic (3) Chronic respiratory failure: Status: Chronic (4) Tracheostomy in place: Status: Chronic (5) PEG (percutaneous endoscopic gastrostomy) status: Status: Chronic (6) Essential (primary) hypertension: Status: Acute SUBJECTIVE Fever:: none Shortness of Breath:: none GI:: no complaints Pain:: none OBJECTIVE Most recent vital signs: Last Vital Signs Temp 97.9 F 01/11/24 17:59 Pulse 72 01/11/24 17:59 Resp 17 01/11/24 17:59 BP 129/79 01/11/24 17:59 Pulse Ox 99 01/11/24 17:59 O2 Del Method Blow-by 01/11/24 06:00 O2 Flow Rate 6 01/11/24 12:47 FiO2 28 01/11/24 12:47 Neurological:: alert (responds to simple commands, shakes hands with his left) Speech:: none Answers questions:: no Respiratory:: shallow breathing Cardiovascular: RRR Abdomen: soft and nontender Extremities:: deformities Decubitus:: improved Tracheostomy:: to blow by Feeding per:: G tube Complaints:: none ASSESSMENT & PLAN Assessment: Pt. has certainly been awake and eye tracking some, does extend his left hand when offered a hand shake Diagnosis and treatment reviewed. All else stable, pt fully dependent for care. I had a detailed converiisation with pt's about his status and prognostic outlooks and explained in detail all her questions to which she was thankful even though more saddened by the reality of his condition and unpromising expectations. He shows no improvement in his chronic significant neurological deficit.No new issues Plans to take him home on hold for the time at pt's 's request for lack of resources to take good care of him at home. Plan: Current treatment as ongoing. . Family updated.
[2024-01-06] MEDS: INSULIN GLARGINE 100 UNIT/ML INSULN.PEN 14 UNIT SC (17:06)
[2024-01-07] VITALS (9 sets, daily range): BP systolic 102–119; BP diastolic 58–75; PULSE 65–76; RESP 16–20; TEMP 36.3–36.8; O2SAT 20–98
[2024-01-07] MEDS: IPRATROPIUM/ALBUTEROL 3 ML AMPUL.NEB INH ×4 (01:29→19:19)
[2024-01-07] MEDS: FUROSEMIDE 20 MG TABLET GT (09:12)
[2024-01-07] MEDS: SENNOSIDES 8.6 MG TABLET GT ×2 (09:12→20:37)
[2024-01-07] MEDS: FAMOTIDINE 20 MG TABLET GT ×2 (09:12→20:37)
[2024-01-07] MEDS: INSULIN GLARGINE 100 UNIT/ML INSULN.PEN 14 UNIT SC (17:27)
[2024-01-08] VITALS (9 sets, daily range): BP systolic 117–131; BP diastolic 69–83; PULSE 70–80; RESP 16–19; TEMP 36.1–36.4; O2SAT 98–100
[2024-01-08] MEDS: IPRATROPIUM/ALBUTEROL 3 ML AMPUL.NEB INH ×4 (01:16→18:32)
[2024-01-08 08:29] LABS: Basophils # (Auto) 0.1 Thou/mm3 (0.0-0.2); Basophils % (Auto) 1 % (0-2.5); Eosinophils # (Auto) 0.2 Thou/mm3 (0.0-0.5); Eosinophils % (Auto) 1 % (0-10); Hemoglobin 10.8 g/dL (13.5-16.0); Immature Granulocytes % (Auto) 1 % (0-0); Immature Granulocytes Auto 0.06 Thou/mm3 (0.00-0.00); Lymphocytes # (Auto) 3.2 Thou/mm3 (1.0-4.8); Lymphocytes % (Auto) 26 % (10-50); Mean Corpuscular HGB Conc 32.7 g/dl (31.0-37.0); Mean Corpuscular Hemoglobin 28.8 pg (25.0-35.0); Mean Corpuscular Volume 88 fL (80-100); Monocytes # (Auto) 1.1 Thou/mm3 (0.0-0.8); Monocytes % (Auto) 9 % (0-12); Neutrophils # (Auto) 7.6 Thou/mm3 (1.8-7.7); Neutrophils % (Auto) 62 % (37-80); Nucleated Red Blood Cell % 0 /100 WBC (0); Platelet Count 391 Thou/mm3 (140-440); RDW Standard Deviation 44.9 fL (35.1-43.9); Red Blood Count 3.75 Miln/mm3 (4.50-5.90); White Blood Count 12.2 Thou/mm3 (3.8-10.6)
[2024-01-08] MEDS: AMLODIPINE 5 MG TABLET GT (09:35)
[2024-01-08] MEDS: FAMOTIDINE 20 MG TABLET GT ×2 (09:36→20:07)
[2024-01-08] MEDS: FUROSEMIDE 20 MG TABLET GT (09:37)
[2024-01-08] MEDS: SENNOSIDES 8.6 MG TABLET GT ×2 (09:37→20:08)
--- NOTE | 2024-01-08 14:31 | PC.SS ---
Room visit: Resident is laying in bed with head of the bed elevated with call light properly placed with no signs of distress. Resident is on blow by with trach in place, GT in place for medication and nutrition. Resident will remain in current care and will have all subacute care needs met by staff. Resident continues to come in for regular visits. SSD will continue to make daily room visits and offer support as needed.
[2024-01-08] MEDS: INSULIN GLARGINE 100 UNIT/ML INSULN.PEN 14 UNIT SC (17:23)
[2024-01-09] VITALS (9 sets, daily range): BP systolic 117–132; BP diastolic 69–84; PULSE 65–77; RESP 18–20; TEMP 36.2–36.4; O2SAT 96–100
[2024-01-09] MEDS: IPRATROPIUM/ALBUTEROL 3 ML AMPUL.NEB INH ×4 (00:52→18:00)
[2024-01-09] MEDS: AMLODIPINE 5 MG TABLET GT (08:40)
[2024-01-09] MEDS: FAMOTIDINE 20 MG TABLET GT ×2 (08:41→20:09)
[2024-01-09] MEDS: SENNOSIDES 8.6 MG TABLET GT ×2 (08:41→20:09)
[2024-01-09] MEDS: FUROSEMIDE 20 MG TABLET GT (08:41)
[2024-01-09] MEDS: INSULIN GLARGINE 100 UNIT/ML INSULN.PEN 14 UNIT SC (17:27)
[2024-01-10] VITALS (9 sets, daily range): BP systolic 102–131; BP diastolic 64–81; PULSE 68–78; RESP 17–20; TEMP 36.1–36.4; O2SAT 97–100
[2024-01-10] MEDS: IPRATROPIUM/ALBUTEROL 3 ML AMPUL.NEB INH ×4 (00:30→18:37)
[2024-01-10] MEDS: FUROSEMIDE 20 MG TABLET GT (09:40)
[2024-01-10] MEDS: FAMOTIDINE 20 MG TABLET GT ×2 (09:40→20:40)
[2024-01-10] MEDS: AMLODIPINE 5 MG TABLET GT (09:40)
[2024-01-10] MEDS: SENNOSIDES 8.6 MG TABLET GT ×2 (09:40→20:40)
[2024-01-10] MEDS: INSULIN GLARGINE 100 UNIT/ML INSULN.PEN 14 UNIT SC (17:25)
[2024-01-10] MEDS: DOXAZOSIN 2 MG TABLET 4 MG GT (20:40)
--- NOTE | 2024-01-10 21:48 | PC.RT ---
yissel ordered and confirmed by olga from pharmacy.
[2024-01-11] VITALS (9 sets, daily range): BP systolic 94–129; BP diastolic 61–79; PULSE 62–84; RESP 17–18; TEMP 36–36.6; O2SAT 97–100
[2024-01-11] MEDS: IPRATROPIUM/ALBUTEROL 3 ML AMPUL.NEB INH ×4 (00:28→18:15)
[2024-01-11] MEDS: ONDANSETRON HCL 4 MG TABLET PO (03:00)
[2024-01-11] MEDS: SENNOSIDES 8.6 MG TABLET GT ×2 (09:06→20:52)
[2024-01-11] MEDS: FUROSEMIDE 20 MG TABLET GT (09:06)
[2024-01-11] MEDS: FAMOTIDINE 20 MG TABLET GT ×2 (09:06→20:52)
[2024-01-11] MEDS: INSULIN GLARGINE 100 UNIT/ML INSULN.PEN 14 UNIT SC (17:33)
[2024-01-12] VITALS (9 sets, daily range): BP systolic 95–118; BP diastolic 63–72; PULSE 69–81; RESP 16–18; TEMP 36.2–36.6; O2SAT 97–100
[2024-01-12] MEDS: IPRATROPIUM/ALBUTEROL 3 ML AMPUL.NEB INH ×4 (00:36→18:12)
[2024-01-12] MEDS: FAMOTIDINE 20 MG TABLET GT ×2 (08:13→20:42)
[2024-01-12] MEDS: SENNOSIDES 8.6 MG TABLET GT (08:13)
[2024-01-12] MEDS: AMLODIPINE 5 MG TABLET GT (08:13)
[2024-01-12] MEDS: FUROSEMIDE 20 MG TABLET GT (08:13)
[2024-01-12] MEDS: INSULIN GLARGINE 100 UNIT/ML INSULN.PEN 14 UNIT SC (17:31)
[2024-01-12] MEDS: DOXAZOSIN 2 MG TABLET 4 MG GT (20:42)
[2024-01-13] VITALS (9 sets, daily range): BP systolic 104–129; BP diastolic 68–77; PULSE 69–89; RESP 18–20; TEMP 36.4–36.6; O2SAT 96–100
[2024-01-13] MEDS: IPRATROPIUM/ALBUTEROL 3 ML AMPUL.NEB INH ×4 (00:37→18:13)
--- NOTE | 2024-01-13 04:52 | PC.SS ---
lukas ordered at 03:12, called pharmacy at 04:46 and spoke to Ramsey, order received.
[2024-01-13] MEDS: AMLODIPINE 5 MG TABLET GT (08:42)
[2024-01-13] MEDS: SENNOSIDES 8.6 MG TABLET GT ×2 (08:42→20:07)
[2024-01-13] MEDS: FUROSEMIDE 20 MG TABLET GT (08:43)
[2024-01-13] MEDS: FAMOTIDINE 20 MG TABLET GT ×2 (08:43→20:07)
[2024-01-13] MEDS: INSULIN GLARGINE 100 UNIT/ML INSULN.PEN 14 UNIT SC (17:05)
[2024-01-13] MEDS: DOXAZOSIN 2 MG TABLET 4 MG GT (20:07)
[2024-01-14] VITALS (8 sets, daily range): BP systolic 100–112; BP diastolic 64–72; PULSE 6–73; RESP 17–19; TEMP 36.1–36.4; O2SAT 97–99
[2024-01-14] MEDS: IPRATROPIUM/ALBUTEROL 3 ML AMPUL.NEB INH ×4 (00:09→18:00)
[2024-01-14] MEDS: FAMOTIDINE 20 MG TABLET GT ×2 (08:52→20:59)
[2024-01-14] MEDS: SENNOSIDES 8.6 MG TABLET GT ×2 (08:52→20:59)
[2024-01-14] MEDS: FUROSEMIDE 20 MG TABLET GT (08:52)
[2024-01-14] MEDS: INSULIN GLARGINE 100 UNIT/ML INSULN.PEN 14 UNIT SC (17:24)
[2024-01-14] MEDS: DOXAZOSIN 2 MG TABLET 4 MG GT (20:59)
[2024-01-15] VITALS (9 sets, daily range): BP systolic 112–142; BP diastolic 62–78; PULSE 65–98; RESP 18–20; TEMP 36.3–36.8; O2SAT 98–99
[2024-01-15] MEDS: IPRATROPIUM/ALBUTEROL 3 ML AMPUL.NEB INH ×4 (00:40→18:50)
[2024-01-15] MEDS: AMLODIPINE 5 MG TABLET GT (09:14)
[2024-01-15] MEDS: SENNOSIDES 8.6 MG TABLET GT ×2 (09:14→20:50)
[2024-01-15] MEDS: FUROSEMIDE 20 MG TABLET GT (09:15)
[2024-01-15] MEDS: FAMOTIDINE 20 MG TABLET GT ×2 (09:15→20:50)
[2024-01-15] MEDS: INSULIN GLARGINE 100 UNIT/ML INSULN.PEN 14 UNIT SC (17:16)
[2024-01-15] MEDS: ONDANSETRON HCL 4 MG TABLET PO (20:51)
--- NOTE | 2024-01-15 23:03 | ESPR_ITS ---
Progress Note - SubAcute DIAGNOSIS (1) Aneurysmal subarachnoid hemorrhage: Status: Chronic (2) DM type 2, goal HbA1c < 9%: Status: Chronic (3) Chronic respiratory failure: Status: Chronic (4) Tracheostomy in place: Status: Chronic (5) PEG (percutaneous endoscopic gastrostomy) status: Status: Chronic (6) Essential (primary) hypertension: Status: Acute SUBJECTIVE Fever:: none Shortness of Breath:: none GI:: no complaints Pain:: none OBJECTIVE Most recent vital signs: Last Vital Signs Temp 98.3 F 01/15/24 18:00 Pulse 79 01/15/24 18:00 Resp 20 01/15/24 18:00 BP 117/69 01/15/24 18:00 Pulse Ox 99 01/15/24 18:00 O2 Del Method Blow-by 01/15/24 18:00 O2 Flow Rate 6 01/15/24 18:00 FiO2 28 01/15/24 18:00 Neurological:: alert (responds to simple commands, shakes hands with his left) Speech:: none Answers questions:: no Respiratory:: shallow breathing Cardiovascular: RRR Abdomen: soft and nontender Extremities:: deformities Decubitus:: improved Tracheostomy:: to blow by Feeding per:: G tube Complaints:: none ASSESSMENT & PLAN Assessment: Pt. has certainly been awake and eye tracking some, does extend his left hand when offered a hand shake Diagnosis and treatment reviewed. All else stable, pt fully dependent for care. I had a detailed converiisation with pt's about his status and prognostic outlooks and explained in detail all her questions to which she was thankful even though more saddened by the reality of his condition and unpromising expectations. He shows no improvement in his chronic significant neurological deficit.No new issues Plans to take him home on hold for the time at pt's 's request for lack of resources to take good care of him at home. Plan: Current treatment as ongoing. . Family updated.
[2024-01-16] VITALS (10 sets, daily range): BP systolic 101–128; BP diastolic 69–81; PULSE 70–87; RESP 18–20; TEMP 36.2–36.8; O2SAT 96–99
[2024-01-16] MEDS: IPRATROPIUM/ALBUTEROL 3 ML AMPUL.NEB INH ×4 (00:25→18:55)
[2024-01-16] MEDS: FAMOTIDINE 20 MG TABLET GT ×2 (09:11→21:00)
[2024-01-16] MEDS: AMLODIPINE 5 MG TABLET GT (09:11)
[2024-01-16] MEDS: SENNOSIDES 8.6 MG TABLET GT ×2 (09:11→20:18)
[2024-01-16] MEDS: FUROSEMIDE 20 MG TABLET GT (09:12)
[2024-01-16] MEDS: ACETAMINOPHEN 325 MG TABLET 650 MG GT (09:12)
--- NOTE | 2024-01-16 14:51 | PC.SS ---
This SSD spoke with resident RP Harper Ferreira who has asked to allow for her training to continue as she would like to be a part of resident care. Harper has asked to have resident moved closer to home in [place]. This SSD will send referral over to [facility]. This SSD will follow up and keep RP and resident updated.
[2024-01-16] MEDS: INSULIN GLARGINE 100 UNIT/ML INSULN.PEN 14 UNIT SC (17:51)
[2024-01-16] MEDS: DOXAZOSIN 2 MG TABLET 4 MG GT (20:18)
[2024-01-17] VITALS (9 sets, daily range): BP systolic 103–165; BP diastolic 63–88; PULSE 66–79; RESP 18–20; TEMP 36.1–36.6; O2SAT 97–99
[2024-01-17] MEDS: IPRATROPIUM/ALBUTEROL 3 ML AMPUL.NEB INH ×4 (00:50→18:05)
[2024-01-17] MEDS: SENNOSIDES 8.6 MG TABLET GT ×2 (08:48→20:42)
[2024-01-17] MEDS: FAMOTIDINE 20 MG TABLET GT ×2 (08:50→20:42)
[2024-01-17] MEDS: FUROSEMIDE 20 MG TABLET GT (08:50)
[2024-01-17] MEDS: INSULIN GLARGINE 100 UNIT/ML INSULN.PEN 14 UNIT SC (17:05)
[2024-01-17] MEDS: DOXAZOSIN 2 MG TABLET 4 MG GT (20:42)
[2024-01-18] VITALS (8 sets, daily range): BP systolic 103–117; BP diastolic 64–78; PULSE 62–75; RESP 16–18; TEMP 36.2–36.5; O2SAT 96–100
[2024-01-18] MEDS: IPRATROPIUM/ALBUTEROL 3 ML AMPUL.NEB INH ×4 (00:48→18:05)
[2024-01-18] MEDS: SENNOSIDES 8.6 MG TABLET GT ×2 (09:19→20:08)
[2024-01-18] MEDS: FAMOTIDINE 20 MG TABLET GT ×2 (09:20→20:08)
[2024-01-18] MEDS: FUROSEMIDE 20 MG TABLET GT (09:20)
[2024-01-18] MEDS: INSULIN GLARGINE 100 UNIT/ML INSULN.PEN 14 UNIT SC (17:28)
[2024-01-18] MEDS: DOXAZOSIN 2 MG TABLET 4 MG GT (20:08)
[2024-01-19] VITALS (9 sets, daily range): BP systolic 94–132; BP diastolic 59–77; PULSE 55–81; RESP 17–19; TEMP 36.1–36.9; O2SAT 94–99
[2024-01-19] MEDS: IPRATROPIUM/ALBUTEROL 3 ML AMPUL.NEB INH ×4 (00:36→18:05)
[2024-01-19] MEDS: SENNOSIDES 8.6 MG TABLET GT ×2 (08:01→21:00)
[2024-01-19] MEDS: FAMOTIDINE 20 MG TABLET GT ×2 (08:02→20:57)
[2024-01-19] MEDS: FUROSEMIDE 20 MG TABLET GT (08:02)
--- NOTE | 2024-01-19 13:10 | ESPR_ITS ---
Progress Note - SubAcute DIAGNOSIS (1) Aneurysmal subarachnoid hemorrhage: Status: Chronic (2) DM type 2, goal HbA1c < 9%: Status: Chronic (3) Chronic respiratory failure: Status: Chronic (4) Tracheostomy in place: Status: Chronic (5) PEG (percutaneous endoscopic gastrostomy) status: Status: Chronic (6) Essential (primary) hypertension: Status: Acute SUBJECTIVE Fever:: none Shortness of Breath:: none GI:: no complaints Pain:: none OBJECTIVE Most recent vital signs: Last Vital Signs Temp 97.0 F 01/21/24 00:00 Pulse 72 01/21/24 00:59 Resp 18 01/21/24 00:59 BP 109/67 01/21/24 00:00 Pulse Ox 98 01/21/24 00:59 O2 Del Method Blow-by 01/19/24 18:00 O2 Flow Rate 6 01/21/24 00:59 FiO2 28 01/21/24 00:59 Neurological:: alert (responds to simple commands, shakes hands with his left) Speech:: none Answers questions:: no Respiratory:: shallow breathing Cardiovascular: RRR Abdomen: soft and nontender Extremities:: deformities Decubitus:: improved Tracheostomy:: to blow by Feeding per:: G tube Complaints:: none ASSESSMENT & PLAN Assessment: Pt. has certainly been awake and eye tracking some, does extend his left hand when offered a hand shake Diagnosis and treatment reviewed. All else stable, pt fully dependent for care. I had a detailed converiisation with pt's about his status and prognostic outlooks and explained in detail all her questions to which she was thankful even though more saddened by the reality of his condition and unpromising expectations. He shows no improvement in his chronic significant neurological deficit.No new issues Plans to take him home on hold for the time at pt's 's request for lack of resources to take good care of him at home. Plan: Current treatment as ongoing. . Family updated.
[2024-01-19] MEDS: INSULIN GLARGINE 100 UNIT/ML INSULN.PEN 14 UNIT SC (17:10)
[2024-01-19] MEDS: DOXAZOSIN 2 MG TABLET 4 MG GT (20:56)
[2024-01-20] VITALS (8 sets, daily range): BP systolic 107–127; BP diastolic 60–69; PULSE 60–80; RESP 16–18; TEMP 36.2–36.5; O2SAT 97–100
[2024-01-20] MEDS: IPRATROPIUM/ALBUTEROL 3 ML AMPUL.NEB INH ×4 (01:15→18:05)
[2024-01-20] MEDS: SENNOSIDES 8.6 MG TABLET GT ×2 (08:47→21:04)
[2024-01-20] MEDS: FUROSEMIDE 20 MG TABLET GT (08:48)
[2024-01-20] MEDS: AMLODIPINE 5 MG TABLET GT (08:48)
[2024-01-20] MEDS: FAMOTIDINE 20 MG TABLET GT ×2 (08:48→21:07)
[2024-01-20] MEDS: INSULIN GLARGINE 100 UNIT/ML INSULN.PEN 14 UNIT SC (18:00)
[2024-01-21] VITALS (8 sets, daily range): BP systolic 104–114; BP diastolic 65–72; PULSE 63–87; RESP 16–22; TEMP 36.1–36.6; O2SAT 97–100
[2024-01-21] MEDS: IPRATROPIUM/ALBUTEROL 3 ML AMPUL.NEB INH ×3 (00:58→13:15)
[2024-01-21] MEDS: AMLODIPINE 5 MG TABLET GT (08:50)
[2024-01-21] MEDS: FUROSEMIDE 20 MG TABLET GT (08:51)
[2024-01-21] MEDS: FAMOTIDINE 20 MG TABLET GT ×2 (08:51→19:59)
[2024-01-21] MEDS: SENNOSIDES 8.6 MG TABLET GT ×2 (09:15→19:59)
[2024-01-21] MEDS: INSULIN GLARGINE 100 UNIT/ML INSULN.PEN 14 UNIT SC (17:14)
[2024-01-22] VITALS (7 sets, daily range): BP systolic 105–130; BP diastolic 65–89; PULSE 68–73; RESP 17–18; TEMP 36.3–36.6; O2SAT 99–100
[2024-01-22] MEDS: ONDANSETRON HCL 4 MG TABLET PO (00:24)
--- NOTE | 2024-01-22 04:48 | PC.NURSE ---
Resident had a emesis times one at beginning of shift. Tube feeding in color. Zofran given pgt.
[2024-01-22] MEDS: IPRATROPIUM/ALBUTEROL 3 ML AMPUL.NEB INH ×2 (06:30→13:27)
[2024-01-22] MEDS: AMLODIPINE 5 MG TABLET GT (08:52)
[2024-01-22] MEDS: FAMOTIDINE 20 MG TABLET GT ×2 (08:53→20:13)
[2024-01-22] MEDS: FUROSEMIDE 20 MG TABLET GT (08:53)
[2024-01-22] MEDS: SENNOSIDES 8.6 MG TABLET GT ×2 (08:53→20:14)
[2024-01-22] MEDS: INSULIN GLARGINE 100 UNIT/ML INSULN.PEN 14 UNIT SC (17:28)
[2024-01-22] MEDS: DOXAZOSIN 2 MG TABLET 4 MG GT (20:12)
[2024-01-23] VITALS (9 sets, daily range): BP systolic 94–124; BP diastolic 59–70; PULSE 65–89; RESP 18–20; TEMP 36.1–36.6; O2SAT 98–100
[2024-01-23] MEDS: IPRATROPIUM/ALBUTEROL 3 ML AMPUL.NEB INH ×3 (06:05→18:08)
[2024-01-23] MEDS: FUROSEMIDE 20 MG TABLET GT (08:15)
[2024-01-23] MEDS: FAMOTIDINE 20 MG TABLET GT ×2 (08:15→20:10)
[2024-01-23] MEDS: AMLODIPINE 5 MG TABLET GT (08:15)
[2024-01-23] MEDS: ONDANSETRON HCL 4 MG TABLET PO ×2 (08:16→20:10)
[2024-01-23] MEDS: SENNOSIDES 8.6 MG TABLET GT ×2 (08:16→21:25)
--- NOTE | 2024-01-23 13:10 | ESPR_ITS ---
Progress Note - SubAcute DIAGNOSIS (1) Aneurysmal subarachnoid hemorrhage: Status: Chronic (2) DM type 2, goal HbA1c < 9%: Status: Chronic (3) Chronic respiratory failure: Status: Chronic (4) Tracheostomy in place: Status: Chronic (5) PEG (percutaneous endoscopic gastrostomy) status: Status: Chronic (6) Essential (primary) hypertension: Status: Acute SUBJECTIVE Fever:: none Shortness of Breath:: none GI:: no complaints Pain:: none OBJECTIVE Most recent vital signs: Last Vital Signs Temp 97.8 F 01/24/24 17:25 Pulse 72 01/24/24 19:15 Resp 18 01/24/24 19:15 BP 108/60 01/24/24 17:25 Pulse Ox 99 01/24/24 19:15 O2 Del Method Blow-by 01/24/24 17:25 O2 Flow Rate 6 01/24/24 19:15 FiO2 28 01/24/24 19:15 Neurological:: alert (responds to simple commands, shakes hands with his left) Speech:: none Answers questions:: no Respiratory:: shallow breathing Cardiovascular: RRR Abdomen: soft and nontender Extremities:: deformities Decubitus:: improved Tracheostomy:: to blow by Feeding per:: G tube Complaints:: none ASSESSMENT & PLAN Assessment: Pt. has certainly been awake and eye tracking some, does extend his left hand when offered a hand shake Diagnosis and treatment reviewed. All else stable, pt fully dependent for care. I had a detailed converiisation with pt's about his status and prognostic outlooks and explained in detail all her questions to which she was thankful even though more saddened by the reality of his condition and unpromising expectations. He shows no improvement in his chronic significant neurological deficit.No new issues Plans to take him home on hold for the time at pt's 's request for lack of resources to take good care of him at home. Plan: Current treatment as ongoing. . Family updated.
--- NOTE | 2024-01-23 14:18 | PC.SS ---
Room visit:Resident is laying in bed with head of the bed elevated with call light properly placed with no signs of distress. Resident is well groomed with call light properly placed with no signs of distress. Resident will remain in current care as there are no changes in care or condition, resident remains on blow by with trach in place and GT for medication and nutrition. Resident will continue to have all subacute care needs met by staff.
[2024-01-23] MEDS: INSULIN GLARGINE 100 UNIT/ML INSULN.PEN 14 UNIT SC (17:01)
[2024-01-23] MEDS: DOXAZOSIN 2 MG TABLET 4 MG GT (20:09)
[2024-01-24] VITALS (8 sets, daily range): BP systolic 108–130; BP diastolic 60–79; PULSE 67–78; RESP 16–20; TEMP 36.1–36.6; O2SAT 98–100
[2024-01-24] MEDS: IPRATROPIUM/ALBUTEROL 3 ML AMPUL.NEB INH ×4 (00:30→19:15)
[2024-01-24] MEDS: AMLODIPINE 5 MG TABLET GT (08:52)
[2024-01-24] MEDS: FAMOTIDINE 20 MG TABLET GT ×2 (08:53→20:48)
[2024-01-24] MEDS: FUROSEMIDE 20 MG TABLET GT (08:54)
[2024-01-24] MEDS: SENNOSIDES 8.6 MG TABLET GT ×2 (08:54→20:48)
[2024-01-24] MEDS: ONDANSETRON HCL 4 MG TABLET PO (13:35)
[2024-01-24] MEDS: INSULIN GLARGINE 100 UNIT/ML INSULN.PEN 14 UNIT SC (17:05)
[2024-01-24] MEDS: DOXAZOSIN 2 MG TABLET 4 MG GT (20:47)
[2024-01-25] VITALS (9 sets, daily range): BP systolic 94–147; BP diastolic 57–80; PULSE 68–83; RESP 18–20; TEMP 36.4–36.6; O2SAT 96–99
[2024-01-25] MEDS: IPRATROPIUM/ALBUTEROL 3 ML AMPUL.NEB INH ×4 (00:50→19:15)
[2024-01-25] MEDS: FUROSEMIDE 20 MG TABLET GT (09:00)
[2024-01-25] MEDS: FAMOTIDINE 20 MG TABLET GT ×2 (09:00→20:11)
[2024-01-25] MEDS: SENNOSIDES 8.6 MG TABLET GT ×2 (09:00→20:11)
[2024-01-25] MEDS: ONDANSETRON HCL 4 MG TABLET GT (09:16)
[2024-01-25] MEDS: ACETAMINOPHEN 325 MG TABLET 650 MG GT (11:15)
[2024-01-25] MEDS: INSULIN GLARGINE 100 UNIT/ML INSULN.PEN 14 UNIT SC (17:15)
[2024-01-25] MEDS: DOXAZOSIN 2 MG TABLET 4 MG GT (20:11)
[2024-01-26] VITALS (9 sets, daily range): BP systolic 99–126; BP diastolic 64–74; PULSE 70–84; RESP 18; TEMP 36.1–36.8; O2SAT 95–99
[2024-01-26] MEDS: IPRATROPIUM/ALBUTEROL 3 ML AMPUL.NEB INH ×4 (00:10→18:15)
[2024-01-26] MEDS: DEX/HYPRO/GLY ARTIFICAL TEARS 225 DROP/15 ML BTL BOTH EYES (09:25)
[2024-01-26] MEDS: SENNOSIDES 8.6 MG TABLET GT ×2 (09:26→20:09)
[2024-01-26] MEDS: FUROSEMIDE 20 MG TABLET GT (09:26)
[2024-01-26] MEDS: FAMOTIDINE 20 MG TABLET GT ×2 (09:26→20:09)
[2024-01-26] MEDS: INSULIN GLARGINE 100 UNIT/ML INSULN.PEN 14 UNIT SC (17:56)
[2024-01-26] MEDS: DOXAZOSIN 2 MG TABLET 4 MG GT (20:09)
[2024-01-27] VITALS (10 sets, daily range): BP systolic 92–148; BP diastolic 52–77; PULSE 67–90; RESP 18–20; TEMP 36.1–36.6; O2SAT 98–99
[2024-01-27] MEDS: IPRATROPIUM/ALBUTEROL 3 ML AMPUL.NEB INH ×3 (05:50→18:44)
[2024-01-27] MEDS: DEX/HYPRO/GLY ARTIFICAL TEARS 225 DROP/15 ML BTL BOTH EYES (08:07)
[2024-01-27] MEDS: FAMOTIDINE 20 MG TABLET GT ×2 (08:08→21:01)
[2024-01-27] MEDS: SENNOSIDES 8.6 MG TABLET GT ×2 (08:08→21:01)
[2024-01-27] MEDS: FUROSEMIDE 20 MG TABLET GT (08:09)
[2024-01-27] MEDS: INSULIN GLARGINE 100 UNIT/ML INSULN.PEN 14 UNIT SC (17:13)
[2024-01-27] MEDS: DOXAZOSIN 2 MG TABLET 4 MG GT (21:01)
--- NOTE | 2024-01-27 21:46 | ESPR_ITS ---
Progress Note - SubAcute DIAGNOSIS (1) Aneurysmal subarachnoid hemorrhage: Status: Chronic (2) DM type 2, goal HbA1c < 9%: Status: Chronic (3) Chronic respiratory failure: Status: Chronic (4) Tracheostomy in place: Status: Chronic (5) PEG (percutaneous endoscopic gastrostomy) status: Status: Chronic (6) Essential (primary) hypertension: Status: Acute SUBJECTIVE Fever:: none Shortness of Breath:: none GI:: no complaints Pain:: none OBJECTIVE Most recent vital signs: Last Vital Signs Temp 97.9 F 01/27/24 18:00 Pulse 67 01/27/24 18:45 Resp 20 01/27/24 18:45 BP 128/68 01/27/24 18:00 Pulse Ox 98 01/27/24 18:45 O2 Del Method Blow-by 01/27/24 05:49 O2 Flow Rate 6 01/27/24 18:45 FiO2 28 01/27/24 18:45 Neurological:: alert (responds to simple commands, shakes hands with his left) Speech:: none Answers questions:: no Respiratory:: shallow breathing Cardiovascular: RRR Abdomen: soft and nontender Extremities:: deformities Decubitus:: improved Tracheostomy:: to blow by Feeding per:: G tube Complaints:: none ASSESSMENT & PLAN Assessment: Pt. has certainly been awake and eye tracking some, does extend his left hand when offered a hand shake Diagnosis and treatment reviewed. All else stable, pt fully dependent for care. I had a detailed converiisation with pt's about his status and prognostic outlooks and explained in detail all her questions to which she was thankful even though more saddened by the reality of his condition and unpromising expectations. He shows no improvement in his chronic significant neurological deficit.No new issues Plans to take him home on hold for the time at pt's 's request for lack of resources to take good care of him at home. Plan: Current treatment as ongoing. . Family updated.
[2024-01-28] VITALS (9 sets, daily range): BP systolic 94–117; BP diastolic 61–78; PULSE 69–81; RESP 17–18; TEMP 36.1–36.4; O2SAT 94–100
[2024-01-28] MEDS: IPRATROPIUM/ALBUTEROL 3 ML AMPUL.NEB INH ×5 (00:49→18:21)
[2024-01-28] MEDS: DEX/HYPRO/GLY ARTIFICAL TEARS 225 DROP/15 ML BTL BOTH EYES (08:40)
[2024-01-28] MEDS: SENNOSIDES 8.6 MG TABLET GT ×2 (08:40→20:23)
[2024-01-28] MEDS: FAMOTIDINE 20 MG TABLET GT ×2 (08:40→20:23)
[2024-01-28] MEDS: FUROSEMIDE 20 MG TABLET GT (08:40)
[2024-01-28] MEDS: INSULIN GLARGINE 100 UNIT/ML INSULN.PEN 14 UNIT SC (17:27)
[2024-01-28] MEDS: ACETAMINOPHEN 325 MG TABLET 650 MG GT (20:24)
[2024-01-29] VITALS (9 sets, daily range): BP systolic 101–129; BP diastolic 64–77; PULSE 67–81; RESP 16–18; TEMP 36.1–36.3; O2SAT 96–99
[2024-01-29] MEDS: IPRATROPIUM/ALBUTEROL 3 ML AMPUL.NEB INH ×4 (00:38→18:21)
[2024-01-29] MEDS: AMLODIPINE 5 MG TABLET 2.5 MG GT (09:02)
[2024-01-29] MEDS: FAMOTIDINE 20 MG TABLET GT ×2 (09:03→20:12)
[2024-01-29] MEDS: FUROSEMIDE 20 MG TABLET GT (09:03)
[2024-01-29] MEDS: SENNOSIDES 8.6 MG TABLET GT ×2 (09:03→20:12)
[2024-01-29] MEDS: DEX/HYPRO/GLY ARTIFICAL TEARS 225 DROP/15 ML BTL BOTH EYES (09:03)
--- NOTE | 2024-01-29 11:40 | PC.SS ---
Room visit: Resident is laying in bed with head of the bed elevated with call light properly placed with no signs of distress. Resident has no changes in care or condition. Resident remains on blow by with trach in place and GT for medication and nutrition. Resident will continue to have all subacute care needs met by staff. Resident visits when able, and is currently working on conservatorship with [facility] [employer]. SSD will continue to make daily room visits and monitor for changes in mood and behavior.
[2024-01-29] MEDS: INSULIN GLARGINE 100 UNIT/ML INSULN.PEN 14 UNIT SC (17:38)
[2024-01-29] MEDS: ONDANSETRON HCL 4 MG TABLET GT (19:51)
[2024-01-30] VITALS (8 sets, daily range): BP systolic 108–174; BP diastolic 71–83; PULSE 57–87; RESP 16–18; TEMP 36.2–36.4; O2SAT 98–100
[2024-01-30] MEDS: ONDANSETRON HCL 4 MG TABLET GT (02:21)
[2024-01-30] MEDS: IPRATROPIUM/ALBUTEROL 3 ML AMPUL.NEB INH ×3 (06:05→18:08)
--- NOTE | 2024-01-30 07:49 | XR_ITS ---
Examination: AP chest single view TECHNIQUE: AP portable upright chest single view Exam date and time: January 30, 2024 0823 hours Comparison December 30, 2023 INDICATIONS: Acute respiratory failure this week FINDINGS: Pneumonia with atelectasis at the right base Mild pneumonia left base Mild prominence left ventricle Ectatic thoracic aorta IMPRESSION: Bibasilar pneumonia, consider aspiration pneumonia
--- NOTE | 2024-01-30 07:52 | PC.NURSE ---
Resident vomited 2x called MD. and order chest x-ray, order noted and carried out, we will continue to monitor.
[2024-01-30] MEDS: AMLODIPINE 5 MG TABLET 2.5 MG GT (08:54)
[2024-01-30] MEDS: DEX/HYPRO/GLY ARTIFICAL TEARS 225 DROP/15 ML BTL BOTH EYES (08:55)
[2024-01-30] MEDS: FUROSEMIDE 20 MG TABLET GT (08:56)
[2024-01-30] MEDS: FAMOTIDINE 20 MG TABLET GT ×2 (08:56→20:05)
[2024-01-30] MEDS: SENNOSIDES 8.6 MG TABLET GT ×2 (08:56→20:05)
[2024-01-30] MEDS: INSULIN GLARGINE 100 UNIT/ML INSULN.PEN 14 UNIT SC (17:34)
[2024-01-30] MEDS: DOXAZOSIN 2 MG TABLET 4 MG GT (20:05)
--- NOTE | 2024-01-30 22:49 | PC.NURSE ---
Chest x-ray done on day shift, made aware of chest x-ray results, per impression are chronic findings, resident current vitals:94/57,96.6,72,20, o2sat 97% on 6L 28%, made aware of frequent episodes of emesis, new order obtained for Erythromycin susp, no s/s of distress noted at this time, resident in room resting, HOB elevated.
[2024-01-31] VITALS (9 sets, daily range): BP systolic 98–117; BP diastolic 67–79; PULSE 66–78; RESP 18–20; TEMP 36.1–36.6; O2SAT 97–100
[2024-01-31] MEDS: IPRATROPIUM/ALBUTEROL 3 ML AMPUL.NEB INH ×4 (01:52→18:05)
[2024-01-31] MEDS: AMLODIPINE 5 MG TABLET 2.5 MG GT (09:04)
[2024-01-31] MEDS: FUROSEMIDE 20 MG TABLET GT (09:05)
[2024-01-31] MEDS: DEX/HYPRO/GLY ARTIFICAL TEARS 225 DROP/15 ML BTL BOTH EYES (09:05)
[2024-01-31] MEDS: FAMOTIDINE 20 MG TABLET GT ×2 (09:05→20:41)
[2024-01-31] MEDS: SENNOSIDES 8.6 MG TABLET GT ×2 (09:06→20:41)
[2024-01-31] MEDS: INSULIN GLARGINE 100 UNIT/ML INSULN.PEN 14 UNIT SC (17:22)
--- NOTE | 2024-01-31 19:42 | ESPR_ITS ---
Progress Note - SubAcute DIAGNOSIS (1) Aneurysmal subarachnoid hemorrhage: Status: Chronic (2) DM type 2, goal HbA1c < 9%: Status: Chronic (3) Chronic respiratory failure: Status: Chronic (4) Tracheostomy in place: Status: Chronic (5) PEG (percutaneous endoscopic gastrostomy) status: Status: Chronic (6) Essential (primary) hypertension: Status: Acute SUBJECTIVE Fever:: none Shortness of Breath:: none GI:: no complaints Pain:: none OBJECTIVE Most recent vital signs: Last Vital Signs Temp 97.0 F 01/31/24 18:00 Pulse 77 01/31/24 18:00 Resp 19 01/31/24 18:00 BP 111/70 01/31/24 18:00 Pulse Ox 98 01/31/24 12:45 O2 Del Method Blow-by 01/31/24 06:00 O2 Flow Rate 6 01/31/24 12:45 FiO2 28 01/31/24 12:45 Neurological:: alert (responds to simple commands, shakes hands with his left) Speech:: none Answers questions:: no Respiratory:: shallow breathing Cardiovascular: RRR Abdomen: soft and nontender Extremities:: deformities Decubitus:: improved Tracheostomy:: to blow by Feeding per:: G tube Complaints:: none ASSESSMENT & PLAN Assessment: Pt. has certainly been awake and eye tracking some, does extend his left hand when offered a hand shake Diagnosis and treatment reviewed. All else stable, pt fully dependent for care. I had a detailed converiisation with pt's about his status and prognostic outlooks and explained in detail all her questions to which she was thankful even though more saddened by the reality of his condition and unpromising expectations. He shows no improvement in his chronic significant neurological deficit.No new issues Plans to take him home on hold for the time at pt's 's request for lack of resources to take good care of him at home. Plan: Current treatment as ongoing. . Family updated.
[2024-01-31] MEDS: DOXAZOSIN 2 MG TABLET 4 MG GT (20:40)
[2024-02-01] VITALS (9 sets, daily range): BP systolic 112–130; BP diastolic 67–81; PULSE 70–86; RESP 18–19; TEMP 36.1–36.6; O2SAT 99–100
[2024-02-01] MEDS: IPRATROPIUM/ALBUTEROL 3 ML AMPUL.NEB INH ×4 (00:45→18:35)
[2024-02-01] MEDS: ERYTHROMYCIN ETHYLSUCCINATE 200 MG/5 ML ML 100 MG GT ×3 (05:09→21:12)
[2024-02-01] MEDS: AMLODIPINE 5 MG TABLET 2.5 MG GT (08:08)
[2024-02-01] MEDS: ACETAMINOPHEN 325 MG TABLET 650 MG GT (08:08)
[2024-02-01] MEDS: FAMOTIDINE 20 MG TABLET GT ×2 (08:08→20:36)
[2024-02-01] MEDS: DEX/HYPRO/GLY ARTIFICAL TEARS 225 DROP/15 ML BTL BOTH EYES (08:08)
[2024-02-01] MEDS: FUROSEMIDE 20 MG TABLET GT (08:08)
[2024-02-01] MEDS: SENNOSIDES 8.6 MG TABLET GT ×2 (08:08→20:36)
[2024-02-01] MEDS: ONDANSETRON HCL 4 MG TABLET GT ×2 (08:08→22:45)
[2024-02-01] MEDS: INSULIN GLARGINE 100 UNIT/ML INSULN.PEN 14 UNIT SC (17:19)
[2024-02-01] MEDS: DOXAZOSIN 2 MG TABLET 4 MG GT (20:36)
[2024-02-02] VITALS (9 sets, daily range): BP systolic 97–126; BP diastolic 55–75; PULSE 61–88; RESP 16–19; TEMP 36.1–36.7; O2SAT 97–100
[2024-02-02] MEDS: IPRATROPIUM/ALBUTEROL 3 ML AMPUL.NEB INH ×4 (00:42→18:58)
[2024-02-02] MEDS: ERYTHROMYCIN ETHYLSUCCINATE 200 MG/5 ML ML 100 MG GT ×3 (05:33→21:32)
[2024-02-02] MEDS: FUROSEMIDE 20 MG TABLET GT (08:13)
[2024-02-02] MEDS: DEX/HYPRO/GLY ARTIFICAL TEARS 225 DROP/15 ML BTL BOTH EYES (08:13)
[2024-02-02] MEDS: FAMOTIDINE 20 MG TABLET GT ×2 (08:13→20:08)
[2024-02-02] MEDS: SENNOSIDES 8.6 MG TABLET GT ×2 (08:14→20:08)
[2024-02-02] MEDS: INSULIN GLARGINE 100 UNIT/ML INSULN.PEN 14 UNIT SC (18:13)
[2024-02-02] MEDS: DOXAZOSIN 2 MG TABLET 4 MG GT (20:08)
[2024-02-03] VITALS (10 sets, daily range): BP systolic 99–117; BP diastolic 62–73; PULSE 63–95; RESP 18–20; TEMP 35.7–39.1; O2SAT 98–100
[2024-02-03] MEDS: IPRATROPIUM/ALBUTEROL 3 ML AMPUL.NEB INH ×4 (00:27→19:10)
[2024-02-03] MEDS: ERYTHROMYCIN ETHYLSUCCINATE 200 MG/5 ML ML 100 MG GT ×3 (05:20→21:37)
[2024-02-03] MEDS: AMLODIPINE 5 MG TABLET 2.5 MG GT (09:10)
[2024-02-03] MEDS: DEX/HYPRO/GLY ARTIFICAL TEARS 225 DROP/15 ML BTL BOTH EYES (09:11)
[2024-02-03] MEDS: FAMOTIDINE 20 MG TABLET GT ×2 (09:11→20:37)
[2024-02-03] MEDS: SENNOSIDES 8.6 MG TABLET GT ×2 (09:11→20:38)
[2024-02-03] MEDS: FUROSEMIDE 20 MG TABLET GT (09:11)
[2024-02-03] MEDS: ACETAMINOPHEN 325 MG TABLET 650 MG GT (17:00)
[2024-02-03] MEDS: INSULIN GLARGINE 100 UNIT/ML INSULN.PEN 14 UNIT SC (17:05)
[2024-02-03] MEDS: INSULIN REGULAR, HUMAN 100 UNIT/ML VIAL SC (17:06)
--- NOTE | 2024-02-03 18:53 | PC.NURSE ---
Resident is awake and alert, says he does not feel well. Vital taken, elevated temperature, 102.3 reported to Charge nurse, started cooling measures,will continue to monitor.
[2024-02-03] MEDS: DOXAZOSIN 2 MG TABLET 4 MG GT (20:37)
[2024-02-04] VITALS (9 sets, daily range): BP systolic 94–104; BP diastolic 52–67; PULSE 70–89; RESP 17–20; TEMP 36.1–36.6; O2SAT 97–99
[2024-02-04] MEDS: IPRATROPIUM/ALBUTEROL 3 ML AMPUL.NEB INH ×4 (01:05→19:00)
[2024-02-04] MEDS: ERYTHROMYCIN ETHYLSUCCINATE 200 MG/5 ML ML 100 MG GT ×3 (05:24→22:10)
[2024-02-04] MEDS: FUROSEMIDE 20 MG TABLET GT (08:51)
[2024-02-04] MEDS: DEX/HYPRO/GLY ARTIFICAL TEARS 225 DROP/15 ML BTL BOTH EYES (08:52)
[2024-02-04] MEDS: FAMOTIDINE 20 MG TABLET GT ×2 (08:52→20:26)
[2024-02-04] MEDS: SENNOSIDES 8.6 MG TABLET GT ×2 (08:52→20:26)
--- NOTE | 2024-02-04 13:20 | ESPR_ITS ---
Progress Note - SubAcute DIAGNOSIS (1) Aneurysmal subarachnoid hemorrhage: Status: Chronic (2) DM type 2, goal HbA1c < 9%: Status: Chronic (3) Chronic respiratory failure: Status: Chronic (4) Tracheostomy in place: Status: Chronic (5) PEG (percutaneous endoscopic gastrostomy) status: Status: Chronic (6) Essential (primary) hypertension: Status: Acute SUBJECTIVE Fever:: none Shortness of Breath:: none GI:: no complaints Pain:: none OBJECTIVE Most recent vital signs: Last Vital Signs Temp 98.0 F 02/05/24 17:52 Pulse 76 02/05/24 17:52 Resp 18 02/05/24 17:52 BP 118/69 02/05/24 17:52 Pulse Ox 97 02/05/24 17:52 O2 Del Method Blow-by 02/05/24 17:52 O2 Flow Rate 6 02/05/24 11:18 FiO2 28 02/05/24 11:18 Neurological:: alert (responds to simple commands, shakes hands with his left) Speech:: none Answers questions:: no Respiratory:: shallow breathing Cardiovascular: RRR Abdomen: soft and nontender Extremities:: deformities Decubitus:: improved Tracheostomy:: to blow by Feeding per:: G tube Complaints:: none ASSESSMENT & PLAN Assessment: Pt. has certainly been awake and eye tracking some, does extend his left hand when offered a hand shake Diagnosis and treatment reviewed. All else stable, pt fully dependent for care. I had a detailed converiisation with pt's about his status and prognostic outlooks and explained in detail all her questions to which she was thankful even though more saddened by the reality of his condition and unpromising expectations. He shows no improvement in his chronic significant neurological deficit.No new issues Plans to take him home on hold for the time at pt's 's request for lack of resources to take good care of him at home. Recently started on Erythromycin low dose for improving GI motiliity and seems to be working. Plan: Current treatment as ongoing. . Family updated.
[2024-02-04] MEDS: INSULIN GLARGINE 100 UNIT/ML INSULN.PEN 14 UNIT SC (17:23)
[2024-02-04] MEDS: DOXAZOSIN 2 MG TABLET 4 MG GT (20:26)
[2024-02-05] VITALS (9 sets, daily range): BP systolic 96–129; BP diastolic 63–79; PULSE 70–85; RESP 18–20; TEMP 36.2–36.7; O2SAT 97–99
[2024-02-05] MEDS: IPRATROPIUM/ALBUTEROL 3 ML AMPUL.NEB INH ×4 (00:40→18:52)
[2024-02-05] MEDS: ERYTHROMYCIN ETHYLSUCCINATE 200 MG/5 ML ML 100 MG GT ×3 (05:20→21:25)
[2024-02-05] MEDS: FAMOTIDINE 20 MG TABLET GT ×2 (08:38→20:49)
[2024-02-05] MEDS: SENNOSIDES 8.6 MG TABLET GT ×2 (08:38→20:49)
[2024-02-05] MEDS: DEX/HYPRO/GLY ARTIFICAL TEARS 225 DROP/15 ML BTL BOTH EYES (08:38)
[2024-02-05] MEDS: FUROSEMIDE 20 MG TABLET GT (08:38)
[2024-02-05] MEDS: INSULIN GLARGINE 100 UNIT/ML INSULN.PEN 14 UNIT SC (17:03)
[2024-02-05] MEDS: DOXAZOSIN 2 MG TABLET 4 MG GT (20:49)
[2024-02-06] VITALS (9 sets, daily range): BP systolic 103–146; BP diastolic 67–78; PULSE 65–71; RESP 16–18; TEMP 36.3–36.8; O2SAT 98–100
[2024-02-06] MEDS: IPRATROPIUM/ALBUTEROL 3 ML AMPUL.NEB INH ×4 (00:16→16:40)
[2024-02-06] MEDS: ERYTHROMYCIN ETHYLSUCCINATE 200 MG/5 ML ML 100 MG GT ×3 (05:29→21:55)
[2024-02-06] MEDS: FUROSEMIDE 20 MG TABLET GT (08:54)
[2024-02-06] MEDS: AMLODIPINE 5 MG TABLET 2.5 MG GT (08:54)
[2024-02-06] MEDS: SENNOSIDES 8.6 MG TABLET GT ×2 (08:54→20:44)
[2024-02-06] MEDS: FAMOTIDINE 20 MG TABLET GT ×2 (08:54→20:44)
[2024-02-06] MEDS: DEX/HYPRO/GLY ARTIFICAL TEARS 225 DROP/15 ML BTL BOTH EYES (08:54)
[2024-02-06] MEDS: INSULIN GLARGINE 100 UNIT/ML INSULN.PEN 14 UNIT SC (17:19)
[2024-02-06] MEDS: DOXAZOSIN 2 MG TABLET 4 MG GT (20:43)
--- NOTE | 2024-02-06 20:59 | ESPR_ITS ---
Progress Note - SubAcute DIAGNOSIS (1) Aneurysmal subarachnoid hemorrhage: Status: Chronic (2) DM type 2, goal HbA1c < 9%: Status: Chronic (3) Chronic respiratory failure: Status: Chronic (4) Tracheostomy in place: Status: Chronic (5) PEG (percutaneous endoscopic gastrostomy) status: Status: Chronic (6) Essential (primary) hypertension: Status: Acute SUBJECTIVE Fever:: none Shortness of Breath:: none GI:: no complaints Pain:: none OBJECTIVE Most recent vital signs: Last Vital Signs Temp 98.3 F 02/06/24 17:48 Pulse 70 02/06/24 17:48 Resp 18 02/06/24 17:48 BP 120/70 02/06/24 17:48 Pulse Ox 99 02/06/24 17:48 O2 Del Method Blow-by 02/06/24 17:48 O2 Flow Rate 6 02/06/24 16:40 FiO2 28 02/06/24 16:40 Neurological:: alert (responds to simple commands, shakes hands with his left) Speech:: none Answers questions:: no Respiratory:: shallow breathing Cardiovascular: RRR Abdomen: soft and nontender Extremities:: deformities Decubitus:: improved Tracheostomy:: to blow by Feeding per:: G tube Complaints:: none ASSESSMENT & PLAN Assessment: Pt. has certainly been awake and eye tracking some, does extend his left hand when offered a hand shake Diagnosis and treatment reviewed. All else stable, pt fully dependent for care. I had a detailed converiisation with pt's about his status and prognostic outlooks and explained in detail all her questions to which she was thankful even though more saddened by the reality of his condition and unpromising expectations. He shows no improvement in his chronic significant neurological deficit.No new issues Plans to take him home on hold for the time at pt's 's request for lack of resources to take good care of him at home. Recently started on Erythromycin low dose for improving GI motiliity and seems to be working. Plan: Current treatment as ongoing. . Family updated.
[2024-02-07] VITALS (9 sets, daily range): BP systolic 97–114; BP diastolic 59–65; PULSE 67–78; RESP 17–20; TEMP 36.4–36.7; O2SAT 95–100
[2024-02-07] MEDS: IPRATROPIUM/ALBUTEROL 3 ML AMPUL.NEB INH ×4 (00:12→18:36)
[2024-02-07] MEDS: ERYTHROMYCIN ETHYLSUCCINATE 200 MG/5 ML ML 100 MG GT ×3 (05:25→21:44)
[2024-02-07] MEDS: FUROSEMIDE 20 MG TABLET GT (09:06)
[2024-02-07] MEDS: FAMOTIDINE 20 MG TABLET GT ×2 (09:06→21:44)
[2024-02-07] MEDS: DEX/HYPRO/GLY ARTIFICAL TEARS 225 DROP/15 ML BTL BOTH EYES (09:06)
[2024-02-07] MEDS: SENNOSIDES 8.6 MG TABLET GT ×2 (09:06→21:44)
[2024-02-07] MEDS: INSULIN GLARGINE 100 UNIT/ML INSULN.PEN 14 UNIT SC (17:31)
[2024-02-07] MEDS: DOXAZOSIN 2 MG TABLET 4 MG GT (21:43)
[2024-02-08] VITALS (9 sets, daily range): BP systolic 113–130; BP diastolic 63–78; PULSE 58–83; RESP 14–20; TEMP 36.1–36.3; O2SAT 97–100
[2024-02-08] MEDS: IPRATROPIUM/ALBUTEROL 3 ML AMPUL.NEB INH ×4 (00:37→18:41)
[2024-02-08] MEDS: ERYTHROMYCIN ETHYLSUCCINATE 200 MG/5 ML ML 100 MG GT ×3 (05:22→21:41)
[2024-02-08] MEDS: FAMOTIDINE 20 MG TABLET GT ×2 (09:27→20:30)
[2024-02-08] MEDS: FUROSEMIDE 20 MG TABLET GT (09:27)
[2024-02-08] MEDS: DEX/HYPRO/GLY ARTIFICAL TEARS 225 DROP/15 ML BTL BOTH EYES (09:27)
[2024-02-08] MEDS: SENNOSIDES 8.6 MG TABLET GT ×2 (09:28→20:30)
[2024-02-08] MEDS: INSULIN GLARGINE 100 UNIT/ML INSULN.PEN 14 UNIT SC (18:05)
[2024-02-08] MEDS: DOXAZOSIN 2 MG TABLET 4 MG GT (20:30)
[2024-02-09] VITALS (10 sets, daily range): BP systolic 109–124; BP diastolic 63–78; PULSE 64–86; RESP 15–20; TEMP 36.1–36.6; O2SAT 97–100
[2024-02-09] MEDS: IPRATROPIUM/ALBUTEROL 3 ML AMPUL.NEB INH ×4 (00:20→18:40)
[2024-02-09] MEDS: ERYTHROMYCIN ETHYLSUCCINATE 200 MG/5 ML ML 100 MG GT ×2 (05:20→13:31)
[2024-02-09] MEDS: AMLODIPINE 5 MG TABLET 2.5 MG GT (08:49)
[2024-02-09] MEDS: DEX/HYPRO/GLY ARTIFICAL TEARS 225 DROP/15 ML BTL BOTH EYES (08:49)
[2024-02-09] MEDS: FAMOTIDINE 20 MG TABLET GT ×2 (08:49→20:13)
[2024-02-09] MEDS: SENNOSIDES 8.6 MG TABLET GT ×2 (08:49→20:13)
[2024-02-09] MEDS: FUROSEMIDE 20 MG TABLET GT (08:49)
[2024-02-09] MEDS: ACETAMINOPHEN 325 MG TABLET 650 MG GT (14:00)
[2024-02-09] MEDS: INSULIN GLARGINE 100 UNIT/ML INSULN.PEN 14 UNIT SC (17:57)
[2024-02-10] VITALS (8 sets, daily range): BP systolic 115–140; BP diastolic 70–80; PULSE 65–77; RESP 17–22; TEMP 36–36.6; O2SAT 96–100
[2024-02-10] MEDS: IPRATROPIUM/ALBUTEROL 3 ML AMPUL.NEB INH ×4 (00:40→18:32)
[2024-02-10] MEDS: ERYTHROMYCIN ETHYLSUCCINATE 200 MG/5 ML ML 100 MG GT ×3 (05:34→21:25)
[2024-02-10] MEDS: FUROSEMIDE 20 MG TABLET GT (09:15)
[2024-02-10] MEDS: AMLODIPINE 5 MG TABLET 2.5 MG GT (09:15)
[2024-02-10] MEDS: SENNOSIDES 8.6 MG TABLET GT ×2 (09:16→21:25)
[2024-02-10] MEDS: FAMOTIDINE 20 MG TABLET GT ×2 (09:16→21:25)
[2024-02-10] MEDS: DEX/HYPRO/GLY ARTIFICAL TEARS 225 DROP/15 ML BTL BOTH EYES (09:16)
[2024-02-10] MEDS: INSULIN GLARGINE 100 UNIT/ML INSULN.PEN 14 UNIT SC (17:19)
[2024-02-10] MEDS: DOXAZOSIN 2 MG TABLET 4 MG GT (21:25)
[2024-02-11] VITALS (9 sets, daily range): BP systolic 92–138; BP diastolic 63–83; PULSE 68–79; RESP 16–20; TEMP 36.1–36.6; O2SAT 98–100
[2024-02-11] MEDS: IPRATROPIUM/ALBUTEROL 3 ML AMPUL.NEB INH ×4 (00:57→18:52)
[2024-02-11] MEDS: ERYTHROMYCIN ETHYLSUCCINATE 200 MG/5 ML ML 100 MG GT ×3 (05:10→21:10)
--- NOTE | 2024-02-11 05:32 | PC.NURSE ---
Trach care dc, trach care to be done by RT, RT made aware.
[2024-02-11] MEDS: SENNOSIDES 8.6 MG TABLET GT ×2 (08:17→21:11)
[2024-02-11] MEDS: FAMOTIDINE 20 MG TABLET GT ×2 (08:17→21:11)
[2024-02-11] MEDS: DEX/HYPRO/GLY ARTIFICAL TEARS 225 DROP/15 ML BTL BOTH EYES (08:17)
[2024-02-11] MEDS: FUROSEMIDE 20 MG TABLET GT (08:17)
--- NOTE | 2024-02-11 11:41 | ESPR_ITS ---
Progress Note - SubAcute DIAGNOSIS (1) Aneurysmal subarachnoid hemorrhage: Status: Chronic (2) DM type 2, goal HbA1c < 9%: Status: Chronic (3) Chronic respiratory failure: Status: Chronic (4) Tracheostomy in place: Status: Chronic (5) PEG (percutaneous endoscopic gastrostomy) status: Status: Chronic (6) Essential (primary) hypertension: Status: Acute SUBJECTIVE Fever:: none Shortness of Breath:: none GI:: no complaints Pain:: none OBJECTIVE Most recent vital signs: Last Vital Signs Temp 97.8 F 02/11/24 11:33 Pulse 73 02/11/24 11:33 Resp 18 02/11/24 11:33 BP 105/66 02/11/24 11:33 Pulse Ox 100 02/11/24 06:05 O2 Del Method Blow-by 02/11/24 06:00 O2 Flow Rate 6 02/11/24 06:05 FiO2 28 02/11/24 06:05 Neurological:: alert (responds to simple commands, shakes hands with his left) Speech:: none Answers questions:: no Respiratory:: shallow breathing Cardiovascular: RRR Abdomen: soft and nontender Extremities:: deformities Decubitus:: improved Tracheostomy:: to blow by Feeding per:: G tube Complaints:: none ASSESSMENT & PLAN Assessment: Pt. has certainly been awake and eye tracking some, does extend his left hand when offered a hand shake Diagnosis and treatment reviewed. All else stable, pt fully dependent for care. I had a detailed converiisation with pt's about his status and prognostic outlooks and explained in detail all her questions to which she was thankful even though more saddened by the reality of his condition and unpromising expectations. He shows no improvement in his chronic significant neurological deficit.No new issues Plans to take him home on hold for the time at pt's 's request for lack of resources to take good care of him at home. Recently started on Erythromycin low dose for improving GI motiliity and seems to be working. Plan: Current treatment as ongoing. . Family updated.
--- NOTE | 2024-02-11 17:05 | PC.NURSE ---
Sent eye picture to Dr. Gloria via Ipad as per his request. Called for further orders. No further orders given.
[2024-02-11] MEDS: INSULIN GLARGINE 100 UNIT/ML INSULN.PEN 14 UNIT SC (17:28)
[2024-02-11] MEDS: DOXAZOSIN 2 MG TABLET 4 MG GT (21:11)
[2024-02-12] VITALS (9 sets, daily range): BP systolic 97–123; BP diastolic 61–77; PULSE 71–85; RESP 16–24; TEMP 36.3–36.7; O2SAT 97–99
[2024-02-12] MEDS: IPRATROPIUM/ALBUTEROL 3 ML AMPUL.NEB INH ×4 (01:24→16:35)
[2024-02-12] MEDS: ERYTHROMYCIN ETHYLSUCCINATE 200 MG/5 ML ML 100 MG GT ×3 (05:41→21:01)
[2024-02-12] MEDS: AMLODIPINE 5 MG TABLET 2.5 MG GT (08:38)
[2024-02-12] MEDS: FUROSEMIDE 20 MG TABLET GT (08:38)
[2024-02-12] MEDS: DEX/HYPRO/GLY ARTIFICAL TEARS 225 DROP/15 ML BTL BOTH EYES (08:38)
[2024-02-12] MEDS: FAMOTIDINE 20 MG TABLET GT ×2 (08:38→20:59)
[2024-02-12] MEDS: SENNOSIDES 8.6 MG TABLET GT ×2 (08:38→20:59)
[2024-02-12] MEDS: INSULIN GLARGINE 100 UNIT/ML INSULN.PEN 14 UNIT SC (17:40)
[2024-02-12] MEDS: DOXAZOSIN 2 MG TABLET 4 MG GT (20:59)
[2024-02-13] VITALS (10 sets, daily range): BP systolic 103–147; BP diastolic 67–94; PULSE 66–81; RESP 18; TEMP 36.2–36.8; O2SAT 97–99
[2024-02-13] MEDS: IPRATROPIUM/ALBUTEROL 3 ML AMPUL.NEB INH ×4 (00:40→19:15)
[2024-02-13] MEDS: ERYTHROMYCIN ETHYLSUCCINATE 200 MG/5 ML ML 100 MG GT ×3 (05:35→21:24)
[2024-02-13] MEDS: AMLODIPINE 5 MG TABLET 2.5 MG GT (08:48)
[2024-02-13] MEDS: FAMOTIDINE 20 MG TABLET GT ×2 (08:48→20:11)
[2024-02-13] MEDS: FUROSEMIDE 20 MG TABLET GT (08:48)
[2024-02-13] MEDS: SENNOSIDES 8.6 MG TABLET GT ×2 (08:48→20:11)
[2024-02-13] MEDS: DEX/HYPRO/GLY ARTIFICAL TEARS 225 DROP/15 ML BTL BOTH EYES (08:48)
--- NOTE | 2024-02-13 14:46 | PC.SS ---
Room visit: Resident is laying in bed with head of the bed elevated with no change in care or condition. Resident remains on blow by with trach in place. Resident has GT in place for medication and nutrition. Resident is unable to make needs known, total care. Resident will remain in current care and will have all subacute care needs met by staff.
--- NOTE | 2024-02-13 15:53 | PC.SS ---
This SSD spoke with resident SHANEKA/Harper regarding her conversation with case leónbernarda at [facility]. Harper stated she called subacute and was informed there was an open bed. This SSD called [facility] and spoke with Salome who said there was an open bed but they were already following a potential patient this SSD informed Harper of that. Harper would like to move resident to a subacute closer to home in [place]. This SSD will continue to call [facility] and inquire of appropriate open beds.
[2024-02-13] MEDS: INSULIN GLARGINE 100 UNIT/ML INSULN.PEN 14 UNIT SC (17:20)
[2024-02-13] MEDS: DOXAZOSIN 2 MG TABLET 4 MG GT (20:10)
[2024-02-14] VITALS (8 sets, daily range): BP systolic 100–131; BP diastolic 67–79; PULSE 69–81; RESP 18–20; TEMP 36.2–36.4; O2SAT 97–99
[2024-02-14] MEDS: ERYTHROMYCIN ETHYLSUCCINATE 200 MG/5 ML ML 100 MG GT ×3 (05:31→21:21)
[2024-02-14] MEDS: IPRATROPIUM/ALBUTEROL 3 ML AMPUL.NEB INH ×4 (06:05→18:00)
[2024-02-14] MEDS: DEX/HYPRO/GLY ARTIFICAL TEARS 225 DROP/15 ML BTL BOTH EYES (08:41)
[2024-02-14] MEDS: FAMOTIDINE 20 MG TABLET GT ×2 (08:42→20:35)
[2024-02-14] MEDS: SENNOSIDES 8.6 MG TABLET GT ×2 (08:43→20:35)
[2024-02-14] MEDS: FUROSEMIDE 20 MG TABLET GT (08:43)
[2024-02-14] MEDS: INSULIN GLARGINE 100 UNIT/ML INSULN.PEN 14 UNIT SC (17:22)
[2024-02-14] MEDS: DOXAZOSIN 2 MG TABLET 4 MG GT (20:35)
[2024-02-15] VITALS (9 sets, daily range): BP systolic 115–148; BP diastolic 69–90; PULSE 65–98; RESP 18–20; TEMP 36.3–36.4; O2SAT 98–100
[2024-02-15] MEDS: IPRATROPIUM/ALBUTEROL 3 ML AMPUL.NEB INH ×4 (01:00→18:10)
[2024-02-15] MEDS: ERYTHROMYCIN ETHYLSUCCINATE 200 MG/5 ML ML 100 MG GT ×3 (05:17→22:00)
[2024-02-15] MEDS: SENNOSIDES 8.6 MG TABLET GT ×2 (08:15→20:39)
[2024-02-15] MEDS: FAMOTIDINE 20 MG TABLET GT ×2 (08:15→20:39)
[2024-02-15] MEDS: FUROSEMIDE 20 MG TABLET GT (08:15)
[2024-02-15] MEDS: DEX/HYPRO/GLY ARTIFICAL TEARS 225 DROP/15 ML BTL BOTH EYES (08:15)
[2024-02-15] MEDS: AMLODIPINE 5 MG TABLET 2.5 MG GT (08:15)
[2024-02-15] MEDS: INSULIN GLARGINE 100 UNIT/ML INSULN.PEN 14 UNIT SC (18:00)
--- NOTE | 2024-02-15 18:12 | ESPR_ITS ---
Progress Note - SubAcute DIAGNOSIS (1) Aneurysmal subarachnoid hemorrhage: Status: Chronic (2) DM type 2, goal HbA1c < 9%: Status: Chronic (3) Chronic respiratory failure: Status: Chronic (4) Tracheostomy in place: Status: Chronic (5) PEG (percutaneous endoscopic gastrostomy) status: Status: Chronic (6) Essential (primary) hypertension: Status: Acute SUBJECTIVE Fever:: none Shortness of Breath:: none GI:: no complaints Pain:: none OBJECTIVE Most recent vital signs: Last Vital Signs Temp 97.6 F 02/15/24 18:00 Pulse 70 02/15/24 18:00 Resp 18 02/15/24 18:00 BP 115/71 02/15/24 18:00 Pulse Ox 100 02/15/24 18:00 O2 Del Method Blow-by 02/15/24 18:00 O2 Flow Rate 6 02/15/24 13:04 FiO2 28 02/15/24 13:04 Neurological:: alert (responds to simple commands, shakes hands with his left) Speech:: none Answers questions:: no Respiratory:: shallow breathing Cardiovascular: RRR Abdomen: soft and nontender Extremities:: deformities Decubitus:: improved Tracheostomy:: to blow by Feeding per:: G tube Complaints:: none ASSESSMENT & PLAN Assessment: Pt. has certainly been awake and eye tracking some, does extend his left hand when offered a hand shake Diagnosis and treatment reviewed. All else stable, pt fully dependent for care. I had a detailed converiisation with pt's about his status and prognostic outlooks and explained in detail all her questions to which she was thankful even though more saddened by the reality of his condition and unpromising expectations. He shows no improvement in his chronic significant neurological deficit.No new issues Plans to take him home on hold for the time at pt's 's request for lack of resources to take good care of him at home. Recently started on Erythromycin low dose for improving GI motiliity and seems to be working. Plan: Current treatment as ongoing. . Family updated.
[2024-02-16] VITALS (9 sets, daily range): BP systolic 107–142; BP diastolic 67–75; PULSE 67–79; RESP 16–20; TEMP 36.2–36.8; O2SAT 97–100
[2024-02-16] MEDS: IPRATROPIUM/ALBUTEROL 3 ML AMPUL.NEB INH ×4 (00:45→18:10)
[2024-02-16] MEDS: ERYTHROMYCIN ETHYLSUCCINATE 200 MG/5 ML ML 100 MG GT (05:30)
[2024-02-16] MEDS: AMLODIPINE 5 MG TABLET 2.5 MG GT (08:22)
[2024-02-16] MEDS: SENNOSIDES 8.6 MG TABLET GT ×2 (08:23→21:04)
[2024-02-16] MEDS: DEX/HYPRO/GLY ARTIFICAL TEARS 225 DROP/15 ML BTL BOTH EYES (08:24)
[2024-02-16] MEDS: FUROSEMIDE 20 MG TABLET GT (08:24)
[2024-02-16] MEDS: FAMOTIDINE 20 MG TABLET GT ×2 (08:24→21:04)
[2024-02-16] MEDS: INSULIN GLARGINE 100 UNIT/ML INSULN.PEN 14 UNIT SC (17:17)
[2024-02-16] MEDS: ACETAMINOPHEN 325 MG TABLET 650 MG GT (21:00)
[2024-02-16] MEDS: DOXAZOSIN 2 MG TABLET 4 MG GT (21:05)
[2024-02-17] VITALS (10 sets, daily range): BP systolic 94–119; BP diastolic 61–75; PULSE 62–77; RESP 18–20; TEMP 36.2–36.7; O2SAT 98–100
[2024-02-17] MEDS: IPRATROPIUM/ALBUTEROL 3 ML AMPUL.NEB INH ×4 (00:50→17:24)
[2024-02-17] MEDS: SENNOSIDES 8.6 MG TABLET GT ×2 (09:00→20:09)
[2024-02-17] MEDS: AMLODIPINE 5 MG TABLET 2.5 MG GT (09:00)
[2024-02-17] MEDS: FUROSEMIDE 20 MG TABLET GT (09:00)
[2024-02-17] MEDS: DEX/HYPRO/GLY ARTIFICAL TEARS 225 DROP/15 ML BTL BOTH EYES (09:00)
[2024-02-17] MEDS: FAMOTIDINE 20 MG TABLET GT ×2 (09:00→20:09)
--- NOTE | 2024-02-17 12:07 | PC.SS ---
This SSD and IP nurse called and spoke with RP/Harper Ferreira regarding COVID and Flu vaccine. IP provided education on both vaccines. RP decline COVID booster, but did consent to flu and pneumonia. Facts sheets and copy of consents to be mailed to RP.
--- NOTE | 2024-02-17 14:14 | PC.SS ---
IDT Note: SHANEKA/Harper Ferreira attended meeting via telephone, report read by charge nurse. [employer] Operator went over diet report, Harper is concerned resident is not eating much and has requested to dietitian resident have more vegetables offered to him with his meals. Resident will continue to be monitored.
[2024-02-17] MEDS: INSULIN GLARGINE 100 UNIT/ML INSULN.PEN 14 UNIT SC (17:16)
[2024-02-17] MEDS: DOXAZOSIN 2 MG TABLET 4 MG GT (20:09)
[2024-02-18] VITALS (8 sets, daily range): BP systolic 100–134; BP diastolic 61–77; PULSE 64–79; RESP 16–20; TEMP 36.3–36.7; O2SAT 96–100
[2024-02-18] MEDS: IPRATROPIUM/ALBUTEROL 3 ML AMPUL.NEB INH ×4 (00:15→18:35)
[2024-02-18] MEDS: FAMOTIDINE 20 MG TABLET GT ×2 (08:46→21:02)
[2024-02-18] MEDS: FUROSEMIDE 20 MG TABLET GT (08:46)
[2024-02-18] MEDS: DEX/HYPRO/GLY ARTIFICAL TEARS 225 DROP/15 ML BTL BOTH EYES (08:46)
[2024-02-18] MEDS: SENNOSIDES 8.6 MG TABLET GT ×2 (08:47→21:03)
[2024-02-18] MEDS: ACETAMINOPHEN 325 MG TABLET 650 MG GT (08:48)
--- NOTE | 2024-02-18 10:38 | PC.SS ---
Resident RP/Harper Jhon is currently petitioning [facility] for conservatorship of her /resident. Hraper comes in for visits and calls when she is unable to be here.
[2024-02-18] MEDS: INSULIN GLARGINE 100 UNIT/ML INSULN.PEN 14 UNIT SC (17:41)
[2024-02-18] MEDS: ERYTHROMYCIN ETHYLSUCCINATE 200 MG/5 ML ML 100 MG GT (21:02)
[2024-02-18] MEDS: DOXAZOSIN 2 MG TABLET 4 MG GT (21:02)
[2024-02-19] VITALS (9 sets, daily range): BP systolic 116–146; BP diastolic 68–80; PULSE 19–75; RESP 18–72; TEMP 36.1–36.6; O2SAT 97–100
[2024-02-19] MEDS: IPRATROPIUM/ALBUTEROL 3 ML AMPUL.NEB INH ×4 (00:14→19:45)
[2024-02-19] MEDS: ERYTHROMYCIN ETHYLSUCCINATE 200 MG/5 ML ML 100 MG GT ×3 (05:16→21:15)
[2024-02-19] MEDS: FUROSEMIDE 20 MG TABLET GT (08:49)
[2024-02-19] MEDS: AMLODIPINE 5 MG TABLET 2.5 MG GT (08:49)
[2024-02-19] MEDS: FAMOTIDINE 20 MG TABLET GT ×2 (08:49→20:22)
[2024-02-19] MEDS: SENNOSIDES 8.6 MG TABLET GT ×2 (08:49→20:22)
[2024-02-19] MEDS: DEX/HYPRO/GLY ARTIFICAL TEARS 225 DROP/15 ML BTL BOTH EYES (08:49)
--- NOTE | 2024-02-19 11:02 | PC.SS ---
Room visit: Resident is laying in bed with head of the bed elevated with call light properly placed. Resident is well groomed and is seen in and out of sleep during room visit. Resident has no changes in care or condition, he remains on blow by with trach in place and GT in place for medication and nutrition. Resident will remain in current care as he is not ready to DC to lower level of care, due to heavy and complicated care regimen he will continue to have all subacute care needs met by staff. SSD will continue to make daily contact with resident and monitor for changes in mood and behavior.
[2024-02-19] MEDS: INSULIN GLARGINE 100 UNIT/ML INSULN.PEN 14 UNIT SC (17:02)
--- NOTE | 2024-02-19 23:14 | ESPR_ITS ---
Progress Note - SubAcute DIAGNOSIS (1) Aneurysmal subarachnoid hemorrhage: Status: Chronic (2) DM type 2, goal HbA1c < 9%: Status: Chronic (3) Chronic respiratory failure: Status: Chronic (4) Tracheostomy in place: Status: Chronic (5) PEG (percutaneous endoscopic gastrostomy) status: Status: Chronic (6) Essential (primary) hypertension: Status: Acute SUBJECTIVE Fever:: none Shortness of Breath:: none GI:: no complaints Pain:: none OBJECTIVE Most recent vital signs: Last Vital Signs Temp 97.8 F 02/19/24 18:00 Pulse 19 L 02/19/24 18:00 Resp 72 H 02/19/24 18:00 BP 132/68 H 02/19/24 18:00 Pulse Ox 99 02/19/24 12:45 O2 Del Method Blow-by 02/19/24 05:37 O2 Flow Rate 6 02/19/24 12:45 FiO2 28 02/19/24 12:45 Neurological:: alert (responds to simple commands, shakes hands with his left) Speech:: none Answers questions:: no Respiratory:: shallow breathing Cardiovascular: RRR Abdomen: soft and nontender Extremities:: deformities Decubitus:: improved Tracheostomy:: to blow by Feeding per:: G tube Complaints:: none ASSESSMENT & PLAN Assessment: Pt. has certainly been awake and eye tracking some, does extend his left hand when offered a hand shake Diagnosis and treatment reviewed. All else stable, pt fully dependent for care. I had a detailed converiisation with pt's about his status and prognostic outlooks and explained in detail all her questions to which she was thankful even though more saddened by the reality of his condition and unpromising expectations. He shows no improvement in his chronic significant neurological deficit.No new issues Plans to take him home on hold for the time at pt's 's request for lack of resources to take good care of him at home. Recently started on Erythromycin low dose for improving GI motiliity and seems to be working as emesis now has been very infrequent. This was discussed in IDT with pts daughter over the phone Plan: Current treatment as ongoing. . Family updated.
[2024-02-19] MEDS: ONDANSETRON HCL 4 MG TABLET GT (23:28)
[2024-02-20] VITALS (10 sets, daily range): BP systolic 102–127; BP diastolic 65–77; PULSE 52–81; RESP 18–20; TEMP 36.3–36.4; O2SAT 98–100
[2024-02-20] MEDS: IPRATROPIUM/ALBUTEROL 3 ML AMPUL.NEB INH ×4 (01:00→19:10)
[2024-02-20] MEDS: ERYTHROMYCIN ETHYLSUCCINATE 200 MG/5 ML ML 100 MG GT ×3 (05:11→21:15)
[2024-02-20] MEDS: FUROSEMIDE 20 MG TABLET GT (09:32)
[2024-02-20] MEDS: FAMOTIDINE 20 MG TABLET GT ×2 (09:32→20:15)
[2024-02-20] MEDS: DEX/HYPRO/GLY ARTIFICAL TEARS 225 DROP/15 ML BTL BOTH EYES (09:32)
[2024-02-20] MEDS: SENNOSIDES 8.6 MG TABLET GT ×2 (09:32→20:16)
[2024-02-20] MEDS: INSULIN GLARGINE 100 UNIT/ML INSULN.PEN 14 UNIT SC (18:07)
[2024-02-20] MEDS: DOXAZOSIN 2 MG TABLET 4 MG GT (20:16)
[2024-02-20] MEDS: ONDANSETRON HCL 4 MG TABLET GT (20:24)
[2024-02-21] VITALS (9 sets, daily range): BP systolic 107–118; BP diastolic 51–74; PULSE 66–84; RESP 18–20; TEMP 36.2–36.5; O2SAT 98–100
[2024-02-21] MEDS: IPRATROPIUM/ALBUTEROL 3 ML AMPUL.NEB INH ×4 (01:45→18:16)
[2024-02-21] MEDS: ERYTHROMYCIN ETHYLSUCCINATE 200 MG/5 ML ML 100 MG GT ×3 (05:32→21:00)
[2024-02-21] MEDS: AMLODIPINE 5 MG TABLET 2.5 MG GT (08:13)
[2024-02-21] MEDS: ACETAMINOPHEN 325 MG TABLET 650 MG GT (08:14)
[2024-02-21] MEDS: SENNOSIDES 8.6 MG TABLET GT ×2 (08:14→20:35)
[2024-02-21] MEDS: DEX/HYPRO/GLY ARTIFICAL TEARS 225 DROP/15 ML BTL BOTH EYES (08:14)
[2024-02-21] MEDS: FUROSEMIDE 20 MG TABLET GT (08:14)
[2024-02-21] MEDS: FAMOTIDINE 20 MG TABLET GT ×2 (08:14→20:35)
[2024-02-21] MEDS: INSULIN GLARGINE 100 UNIT/ML INSULN.PEN 14 UNIT SC (17:24)
[2024-02-22] VITALS (8 sets, daily range): BP systolic 107–131; BP diastolic 66–80; PULSE 70–81; RESP 17–20; TEMP 36.3–37.1; O2SAT 98–100
[2024-02-22] MEDS: IPRATROPIUM/ALBUTEROL 3 ML AMPUL.NEB INH ×4 (01:00→18:24)
[2024-02-22] MEDS: ERYTHROMYCIN ETHYLSUCCINATE 200 MG/5 ML ML 100 MG GT ×3 (05:24→21:34)
[2024-02-22] MEDS: FUROSEMIDE 20 MG TABLET GT (09:20)
[2024-02-22] MEDS: FAMOTIDINE 20 MG TABLET GT ×2 (09:20→20:25)
[2024-02-22] MEDS: DEX/HYPRO/GLY ARTIFICAL TEARS 225 DROP/15 ML BTL BOTH EYES (09:20)
[2024-02-22] MEDS: SENNOSIDES 8.6 MG TABLET GT ×2 (09:20→20:25)
[2024-02-22] MEDS: INSULIN GLARGINE 100 UNIT/ML INSULN.PEN 14 UNIT SC (17:10)
[2024-02-22] MEDS: DOXAZOSIN 2 MG TABLET 4 MG GT (20:20)
[2024-02-23] VITALS (9 sets, daily range): BP systolic 94–151; BP diastolic 61–85; PULSE 66–83; RESP 16–18; TEMP 36.1–36.3; O2SAT 98–99
[2024-02-23] MEDS: IPRATROPIUM/ALBUTEROL 3 ML AMPUL.NEB INH ×4 (00:35→19:20)
[2024-02-23] MEDS: ERYTHROMYCIN ETHYLSUCCINATE 200 MG/5 ML ML 100 MG GT ×3 (05:26→21:01)
[2024-02-23] MEDS: AMLODIPINE 5 MG TABLET 2.5 MG GT (08:00)
[2024-02-23] MEDS: SENNOSIDES 8.6 MG TABLET GT ×2 (08:01→21:01)
[2024-02-23] MEDS: ACETAMINOPHEN 325 MG TABLET 650 MG GT (08:01)
[2024-02-23] MEDS: FAMOTIDINE 20 MG TABLET GT ×2 (08:01→21:01)
[2024-02-23] MEDS: DEX/HYPRO/GLY ARTIFICAL TEARS 225 DROP/15 ML BTL BOTH EYES (08:01)
[2024-02-23] MEDS: FUROSEMIDE 20 MG TABLET GT (08:01)
--- NOTE | 2024-02-23 16:30 | PC.NURSE ---
Seen by Dr Diaz, no new orders made
[2024-02-23] MEDS: INSULIN GLARGINE 100 UNIT/ML INSULN.PEN 14 UNIT SC (17:26)
[2024-02-23] MEDS: DOXAZOSIN 2 MG TABLET 4 MG GT (21:01)
--- NOTE | 2024-02-23 21:25 | ESPR_ITS ---
Progress Note - SubAcute DIAGNOSIS (1) Aneurysmal subarachnoid hemorrhage: Status: Chronic (2) DM type 2, goal HbA1c < 9%: Status: Chronic (3) Chronic respiratory failure: Status: Chronic (4) Tracheostomy in place: Status: Chronic (5) PEG (percutaneous endoscopic gastrostomy) status: Status: Chronic (6) Essential (primary) hypertension: Status: Acute SUBJECTIVE Fever:: none Shortness of Breath:: none GI:: no complaints Pain:: none OBJECTIVE Most recent vital signs: Last Vital Signs Temp 97.2 F 02/23/24 17:39 Pulse 73 02/23/24 17:39 Resp 17 02/23/24 17:39 BP 101/65 02/23/24 17:39 Pulse Ox 98 02/23/24 17:39 O2 Del Method Blow-by 02/23/24 17:39 O2 Flow Rate 6 02/23/24 11:20 FiO2 28 02/23/24 11:20 Neurological:: alert (responds to simple commands, shakes hands with his left) Speech:: none Answers questions:: no Respiratory:: shallow breathing Cardiovascular: RRR Abdomen: soft and nontender Extremities:: deformities Decubitus:: improved Tracheostomy:: to blow by Feeding per:: G tube Complaints:: none ASSESSMENT & PLAN Assessment: Pt. has certainly been awake and eye tracking some, does extend his left hand when offered a hand shake Diagnosis and treatment reviewed. All else stable, pt fully dependent for care. I had a detailed converiisation with pt's about his status and prognostic outlooks and explained in detail all her questions to which she was thankful even though more saddened by the reality of his condition and unpromising expectations. He shows no improvement in his chronic significant neurological deficit.No new issues Plans to take him home on hold for the time at pt's 's request for lack of resources to take good care of him at home. Recently started on Erythromycin low dose for improving GI motiliity and seems to be working as emesis now has been very infrequent. This was discussed in IDT with pts daughter over the phone. 02-23-24 Bedside meeting with pt's present along with RN and respiratory therapist and all questions answered. Plan: Current treatment as ongoing. . Family updated.
[2024-02-24] VITALS (7 sets, daily range): BP systolic 92–112; BP diastolic 64–72; PULSE 69–84; RESP 18–20; TEMP 36.1–36.3; O2SAT 97–100
[2024-02-24] MEDS: IPRATROPIUM/ALBUTEROL 3 ML AMPUL.NEB INH ×4 (01:10→19:23)
[2024-02-24] MEDS: ERYTHROMYCIN ETHYLSUCCINATE 200 MG/5 ML ML 100 MG GT ×3 (05:36→21:30)
[2024-02-24] MEDS: FUROSEMIDE 20 MG TABLET GT (08:46)
[2024-02-24] MEDS: SENNOSIDES 8.6 MG TABLET GT ×2 (08:47→20:52)
[2024-02-24] MEDS: FAMOTIDINE 20 MG TABLET GT ×2 (08:47→20:52)
[2024-02-24] MEDS: DEX/HYPRO/GLY ARTIFICAL TEARS 225 DROP/15 ML BTL BOTH EYES (08:47)
[2024-02-24] MEDS: INSULIN GLARGINE 100 UNIT/ML INSULN.PEN 14 UNIT SC (17:26)
[2024-02-24] MEDS: DOXAZOSIN 2 MG TABLET 4 MG GT (20:52)
[2024-02-25] VITALS (9 sets, daily range): BP systolic 108–126; BP diastolic 69–75; PULSE 68–78; RESP 16–18; TEMP 36.1–36.5; O2SAT 96–100
[2024-02-25] MEDS: IPRATROPIUM/ALBUTEROL 3 ML AMPUL.NEB INH ×4 (00:55→18:38)
[2024-02-25] MEDS: ERYTHROMYCIN ETHYLSUCCINATE 200 MG/5 ML ML 100 MG GT ×3 (05:24→20:59)
[2024-02-25] MEDS: SENNOSIDES 8.6 MG TABLET GT ×2 (09:01→20:52)
[2024-02-25] MEDS: FUROSEMIDE 20 MG TABLET GT (09:01)
[2024-02-25] MEDS: AMLODIPINE 5 MG TABLET 2.5 MG GT (09:01)
[2024-02-25] MEDS: FAMOTIDINE 20 MG TABLET GT ×2 (09:01→20:52)
[2024-02-25] MEDS: DEX/HYPRO/GLY ARTIFICAL TEARS 225 DROP/15 ML BTL BOTH EYES (09:01)
[2024-02-25] MEDS: INSULIN GLARGINE 100 UNIT/ML INSULN.PEN 14 UNIT SC (17:03)
[2024-02-25] MEDS: DOXAZOSIN 2 MG TABLET 4 MG GT (20:50)
[2024-02-26] VITALS (8 sets, daily range): BP systolic 108–121; BP diastolic 65–73; PULSE 67–79; RESP 18; TEMP 35.9–36.3; O2SAT 98–100
[2024-02-26] MEDS: IPRATROPIUM/ALBUTEROL 3 ML AMPUL.NEB INH ×4 (00:48→18:17)
[2024-02-26] MEDS: ERYTHROMYCIN ETHYLSUCCINATE 200 MG/5 ML ML 100 MG GT ×3 (05:19→22:45)
[2024-02-26] MEDS: AMLODIPINE 5 MG TABLET 2.5 MG GT (08:14)
[2024-02-26] MEDS: DEX/HYPRO/GLY ARTIFICAL TEARS 225 DROP/15 ML BTL BOTH EYES (08:15)
[2024-02-26] MEDS: SENNOSIDES 8.6 MG TABLET GT ×2 (08:16→20:52)
[2024-02-26] MEDS: FUROSEMIDE 20 MG TABLET GT (08:16)
[2024-02-26] MEDS: FAMOTIDINE 20 MG TABLET GT ×2 (08:16→20:52)
--- NOTE | 2024-02-26 08:17 | PC.NURSE ---
Resident refused to go activity, resident prefer to stay on his room at this time.
--- NOTE | 2024-02-26 14:07 | PC.IP ---
After consent obtained from resident's spouse Harper, seasonal Influenza vaccine ordered for administration. Offered printed material as Vaccine Information Sheet and declined. Discussed risks and benefits of receiving vaccines but Covid booster declined. Assured that vital signs and any signs of temperature or discomfort would be monitored closely and Tylenol or Ibuprofen would be available as per appropriate and MD order. There were no further questions and no concerns expressed.
[2024-02-26] MEDS: FLU VACC QS 2023-24 (6 MOS UP) 60 MCG/0.5 ML VIAL IMi (15:42)
[2024-02-26] MEDS: INSULIN GLARGINE 100 UNIT/ML INSULN.PEN 14 UNIT SC (17:11)
[2024-02-27] VITALS (12 sets, daily range): BP systolic 101–128; BP diastolic 62–79; PULSE 63–69; RESP 16–18; TEMP 36–36.3; O2SAT 95–100
--- NOTE | 2024-02-27 00:09 | PC.NURSE ---
S/P influenza vaccine to left deltoid. No delayed adverse reactions noted. V/S WNL.
[2024-02-27] MEDS: IPRATROPIUM/ALBUTEROL 3 ML AMPUL.NEB INH ×4 (01:16→18:08)
[2024-02-27] MEDS: ERYTHROMYCIN ETHYLSUCCINATE 200 MG/5 ML ML 100 MG GT ×3 (05:19→21:11)
[2024-02-27] MEDS: FUROSEMIDE 20 MG TABLET GT (08:49)
[2024-02-27] MEDS: DEX/HYPRO/GLY ARTIFICAL TEARS 225 DROP/15 ML BTL BOTH EYES (08:49)
[2024-02-27] MEDS: SENNOSIDES 8.6 MG TABLET GT ×2 (08:49→21:11)
[2024-02-27] MEDS: FAMOTIDINE 20 MG TABLET GT ×2 (08:51→21:11)
[2024-02-27] MEDS: INSULIN GLARGINE 100 UNIT/ML INSULN.PEN 14 UNIT SC (17:26)
[2024-02-27] MEDS: DOXAZOSIN 2 MG TABLET 4 MG GT (21:10)
[2024-02-27] MEDS: ONDANSETRON HCL 4 MG TABLET GT (21:11)
--- NOTE | 2024-02-27 23:16 | ESPR_ITS ---
Progress Note - SubAcute DIAGNOSIS (1) Aneurysmal subarachnoid hemorrhage: Status: Chronic (2) DM type 2, goal HbA1c < 9%: Status: Chronic (3) Chronic respiratory failure: Status: Chronic (4) Tracheostomy in place: Status: Chronic (5) PEG (percutaneous endoscopic gastrostomy) status: Status: Chronic (6) Essential (primary) hypertension: Status: Acute SUBJECTIVE Fever:: none Shortness of Breath:: none GI:: no complaints Pain:: none OBJECTIVE Most recent vital signs: Last Vital Signs Temp 96.9 F 02/27/24 22:00 Pulse 65 02/27/24 22:00 Resp 18 02/27/24 22:00 BP 128/76 02/27/24 22:00 Pulse Ox 98 02/27/24 22:00 O2 Del Method Blow-by 02/27/24 22:00 O2 Flow Rate 6 02/27/24 22:00 FiO2 28 02/27/24 22:00 Neurological:: alert (responds to simple commands, shakes hands with his left) Speech:: none Answers questions:: no Respiratory:: shallow breathing Cardiovascular: RRR Abdomen: soft and nontender Extremities:: deformities Decubitus:: improved Tracheostomy:: to blow by Feeding per:: G tube Complaints:: none ASSESSMENT & PLAN Assessment: Pt. has certainly been awake and eye tracking some, does extend his left hand when offered a hand shake Diagnosis and treatment reviewed. All else stable, pt fully dependent for care. I had a detailed converiisation with pt's about his status and prognostic outlooks and explained in detail all her questions to which she was thankful even though more saddened by the reality of his condition and unpromising expectations. He shows no improvement in his chronic significant neurological deficit.No new issues Plans to take him home on hold for the time at pt's 's request for lack of resources to take good care of him at home. Recently started on Erythromycin low dose for improving GI motiliity and seems to be working as emesis now has been very infrequent. This was discussed in IDT with pts daughter over the phone. 02-23-24 Bedside meeting with pt's present along with RN and respiratory therapist and all questions answered. Family reconsidering possibility of taking pt bome. Plan: Current treatment as ongoing. . Family updated.
[2024-02-28] VITALS (12 sets, daily range): BP systolic 92–129; BP diastolic 57–74; PULSE 62–76; RESP 16–20; TEMP 36.1–36.6; O2SAT 97–100
[2024-02-28] MEDS: IPRATROPIUM/ALBUTEROL 3 ML AMPUL.NEB INH ×4 (00:30→19:36)
[2024-02-28] MEDS: ERYTHROMYCIN ETHYLSUCCINATE 200 MG/5 ML ML 100 MG GT ×3 (05:15→21:18)
[2024-02-28] MEDS: DEX/HYPRO/GLY ARTIFICAL TEARS 225 DROP/15 ML BTL BOTH EYES (08:35)
[2024-02-28] MEDS: SENNOSIDES 8.6 MG TABLET GT ×2 (08:35→20:10)
[2024-02-28] MEDS: FAMOTIDINE 20 MG TABLET GT ×2 (08:35→20:09)
[2024-02-28] MEDS: FUROSEMIDE 20 MG TABLET GT (08:35)
[2024-02-28] MEDS: INSULIN GLARGINE 100 UNIT/ML INSULN.PEN 14 UNIT SC (17:23)
[2024-02-28] MEDS: DOXAZOSIN 2 MG TABLET 4 MG GT (20:09)
[2024-02-28] MEDS: ONDANSETRON HCL 4 MG TABLET GT (20:13)
[2024-02-29] VITALS (8 sets, daily range): BP systolic 124–143; BP diastolic 66–81; PULSE 50–82; RESP 16–20; TEMP 36.2–36.4; O2SAT 97–100
[2024-02-29] MEDS: IPRATROPIUM/ALBUTEROL 3 ML AMPUL.NEB INH ×4 (00:24→19:55)
[2024-02-29] MEDS: ERYTHROMYCIN ETHYLSUCCINATE 200 MG/5 ML ML 100 MG GT (02:32)
[2024-02-29] MEDS: AMLODIPINE 5 MG TABLET 2.5 MG GT (08:18)
[2024-02-29] MEDS: FAMOTIDINE 20 MG TABLET GT ×2 (08:19→20:47)
[2024-02-29] MEDS: DEX/HYPRO/GLY ARTIFICAL TEARS 225 DROP/15 ML BTL BOTH EYES (08:19)
[2024-02-29] MEDS: FUROSEMIDE 20 MG TABLET GT (08:20)
[2024-02-29] MEDS: SENNOSIDES 8.6 MG TABLET GT ×2 (08:20→20:47)
[2024-02-29] MEDS: CARBAMIDE PEROXIDE OTIC SOL 15 ML BTL 5 DROP BOTH EARS ×2 (08:22→22:00)
--- NOTE | 2024-02-29 12:28 | PC.NURSE ---
Resident has been on Erythromycin TID x 28 days for gastroparesis due to episodes of vomiting and noted to be effective/less episode. Updated Dr sarmiento and ordered to continue Erythromycin x 60 days, re-eval. Resident's is here visiting and made aware.
[2024-02-29] MEDS: INSULIN GLARGINE 100 UNIT/ML INSULN.PEN 14 UNIT SC (17:48)
[2024-02-29] MEDS: DOXAZOSIN 2 MG TABLET 4 MG GT (20:47)
[2024-03-01] VITALS (9 sets, daily range): BP systolic 96–125; BP diastolic 63–75; PULSE 63–77; RESP 16–20; TEMP 36.1–36.4; O2SAT 98–100
[2024-03-01] MEDS: IPRATROPIUM/ALBUTEROL 3 ML AMPUL.NEB INH ×4 (00:39→18:05)
[2024-03-01] MEDS: ONDANSETRON HCL 4 MG TABLET GT (00:42)
[2024-03-01] MEDS: AMLODIPINE 5 MG TABLET 2.5 MG GT (09:40)
[2024-03-01] MEDS: DEX/HYPRO/GLY ARTIFICAL TEARS 225 DROP/15 ML BTL BOTH EYES (09:41)
[2024-03-01] MEDS: FUROSEMIDE 20 MG TABLET GT (09:41)
[2024-03-01] MEDS: FAMOTIDINE 20 MG TABLET GT ×2 (09:41→20:14)
[2024-03-01] MEDS: SENNOSIDES 8.6 MG TABLET GT ×2 (09:41→20:14)
[2024-03-01] MEDS: INSULIN GLARGINE 100 UNIT/ML INSULN.PEN 14 UNIT SC (17:13)
[2024-03-01] MEDS: DOXAZOSIN 2 MG TABLET 4 MG GT (20:14)
[2024-03-01] MEDS: ERYTHROMYCIN ETHYLSUCCINATE 200 MG/5 ML ML 100 MG GT (22:00)
[2024-03-02] VITALS (9 sets, daily range): BP systolic 102–110; BP diastolic 65–71; PULSE 60–86; RESP 16–20; TEMP 36.1–36.3; O2SAT 95–100
[2024-03-02] MEDS: IPRATROPIUM/ALBUTEROL 3 ML AMPUL.NEB INH ×4 (00:40→16:33)
[2024-03-02] MEDS: ERYTHROMYCIN ETHYLSUCCINATE 200 MG/5 ML ML 100 MG GT ×3 (05:38→21:30)
[2024-03-02] MEDS: DEX/HYPRO/GLY ARTIFICAL TEARS 225 DROP/15 ML BTL BOTH EYES (08:54)
[2024-03-02] MEDS: FAMOTIDINE 20 MG TABLET GT ×2 (08:55→21:47)
[2024-03-02] MEDS: FUROSEMIDE 20 MG TABLET GT (08:55)
[2024-03-02] MEDS: SENNOSIDES 8.6 MG TABLET GT ×2 (08:55→21:47)
--- NOTE | 2024-03-02 11:39 | PC.SS ---
Resident seen by Dr. Jackson/MAGY for oral exam. Resident tolerated treatment will with no new recommendations. Resident to continue current care and will be seen by PERICOS annually and PRN.
--- NOTE | 2024-03-02 16:18 | ESPR_ITS ---
Progress Note - SubAcute DIAGNOSIS (1) Aneurysmal subarachnoid hemorrhage: Status: Chronic (2) DM type 2, goal HbA1c < 9%: Status: Chronic (3) Chronic respiratory failure: Status: Chronic (4) Tracheostomy in place: Status: Chronic (5) PEG (percutaneous endoscopic gastrostomy) status: Status: Chronic (6) Essential (primary) hypertension: Status: Acute SUBJECTIVE Fever:: none Shortness of Breath:: none GI:: no complaints Pain:: none OBJECTIVE Most recent vital signs: Last Vital Signs Temp 97.0 F 03/02/24 12:00 Pulse 61 03/02/24 12:00 Resp 19 03/02/24 12:00 BP 107/66 03/02/24 12:00 Pulse Ox 98 03/02/24 11:52 O2 Del Method Blow-by 03/02/24 06:00 O2 Flow Rate 6 03/02/24 11:52 FiO2 28 03/02/24 11:52 Neurological:: alert (responds to simple commands, shakes hands with his left) Speech:: none Answers questions:: no Respiratory:: shallow breathing Cardiovascular: RRR Abdomen: soft and nontender Extremities:: deformities Decubitus:: improved Tracheostomy:: to blow by Feeding per:: G tube Complaints:: none ASSESSMENT & PLAN Assessment: Pt. has certainly been awake and eye tracking some, does extend his left hand when offered a hand shake Diagnosis and treatment reviewed. All else stable, pt fully dependent for care. I had a detailed converiisation with pt's about his status and prognostic outlooks and explained in detail all her questions to which she was thankful even though more saddened by the reality of his condition and unpromising expectations. He shows no improvement in his chronic significant neurological deficit.No new issues Plans to take him home on hold for the time at pt's 's request for lack of resources to take good care of him at home. Recently started on Erythromycin low dose for improving GI motiliity and seems to be working as emesis now has been very infrequent. This was discussed in IDT with pts daughter over the phone. 02-23-24 Bedside meeting with pt's present along with RN and respiratory therapist and all questions answered. Family reconsidering possibility of taking pt home. No new issues. Plan: Current treatment as ongoing. . Family updated.
[2024-03-02] MEDS: INSULIN GLARGINE 100 UNIT/ML INSULN.PEN 14 UNIT SC (17:13)
[2024-03-02] MEDS: DOXAZOSIN 2 MG TABLET 4 MG GT (21:47)
[2024-03-03] VITALS (8 sets, daily range): BP systolic 95–119; BP diastolic 62–72; PULSE 69–84; RESP 16–20; TEMP 36.1–36.6; O2SAT 96–100
[2024-03-03] MEDS: IPRATROPIUM/ALBUTEROL 3 ML AMPUL.NEB INH ×4 (00:20→18:18)
[2024-03-03] MEDS: ERYTHROMYCIN ETHYLSUCCINATE 200 MG/5 ML ML 100 MG GT ×3 (05:27→20:14)
[2024-03-03] MEDS: FUROSEMIDE 20 MG TABLET GT (08:54)
[2024-03-03] MEDS: DEX/HYPRO/GLY ARTIFICAL TEARS 225 DROP/15 ML BTL BOTH EYES (08:54)
[2024-03-03] MEDS: SENNOSIDES 8.6 MG TABLET GT ×2 (08:54→20:13)
[2024-03-03] MEDS: FAMOTIDINE 20 MG TABLET GT ×2 (08:54→20:13)
--- NOTE | 2024-03-03 11:47 | PC.SS ---
This SSD spoke with resident SHANEKA/Harper regarding her request to take resident home. Harper has decided not to continue to seek placement in [place] and would rather take resident home as she stated he is ready Harper stated she will be coming in 3 days a week for training, she stated she will not come early in the mornings as before due to her having busy mornings preparing breakfast and lunch for her family. RP expresses having a busy life at home and states she will also have time to provide care to resident once he returns home. This SSD spoke with MD about Harper initiating DC to home MD stated he has met with Harper at resident bedside and has expresses to her resident is care for here in facility and may to heavy for her to care for him at home alone. RP has assured and this SSD she will not be alone and will have plenty of help at home. This SSD will continue to speak with IDT and MD regarding DC plans and will continue to work with RP to ensure for a smooth and safe transition to home.
[2024-03-03] MEDS: INSULIN GLARGINE 100 UNIT/ML INSULN.PEN 14 UNIT SC (17:07)
[2024-03-03] MEDS: DOXAZOSIN 2 MG TABLET 4 MG GT (20:13)
[2024-03-03] MEDS: ACETAMINOPHEN 325 MG TABLET 650 MG GT (20:15)
[2024-03-04] VITALS (9 sets, daily range): BP systolic 98–131; BP diastolic 54–81; PULSE 60–80; RESP 16–20; TEMP 36.1–36.7; O2SAT 95–100; BMI 27.1
[2024-03-04] MEDS: IPRATROPIUM/ALBUTEROL 3 ML AMPUL.NEB INH ×4 (00:20→19:45)
[2024-03-04] MEDS: ERYTHROMYCIN ETHYLSUCCINATE 200 MG/5 ML ML 100 MG GT ×3 (05:03→20:15)
[2024-03-04] MEDS: DEX/HYPRO/GLY ARTIFICAL TEARS 225 DROP/15 ML BTL BOTH EYES (08:30)
[2024-03-04] MEDS: SENNOSIDES 8.6 MG TABLET GT ×2 (08:31→20:14)
[2024-03-04] MEDS: FAMOTIDINE 20 MG TABLET GT ×2 (08:31→20:14)
[2024-03-04] MEDS: FUROSEMIDE 20 MG TABLET GT (08:31)
[2024-03-04] MEDS: INSULIN GLARGINE 100 UNIT/ML INSULN.PEN 14 UNIT SC (17:29)
[2024-03-04] MEDS: ACETAMINOPHEN 325 MG TABLET 650 MG GT (20:10)
[2024-03-04] MEDS: DOXAZOSIN 2 MG TABLET 4 MG GT (20:14)
[2024-03-05] VITALS (10 sets, daily range): BP systolic 103–131; BP diastolic 68–77; PULSE 65–78; RESP 16–20; TEMP 36.4–36.6; O2SAT 93–99
[2024-03-05] MEDS: IPRATROPIUM/ALBUTEROL 3 ML AMPUL.NEB INH ×4 (01:20→19:45)
[2024-03-05] MEDS: ERYTHROMYCIN ETHYLSUCCINATE 200 MG/5 ML ML 100 MG GT ×3 (05:05→21:37)
[2024-03-05] MEDS: AMLODIPINE 5 MG TABLET 2.5 MG GT (08:44)
[2024-03-05] MEDS: FAMOTIDINE 20 MG TABLET GT ×2 (08:45→20:37)
[2024-03-05] MEDS: FUROSEMIDE 20 MG TABLET GT (08:45)
[2024-03-05] MEDS: DEX/HYPRO/GLY ARTIFICAL TEARS 225 DROP/15 ML BTL BOTH EYES (08:45)
[2024-03-05] MEDS: SENNOSIDES 8.6 MG TABLET GT ×2 (08:45→20:37)
[2024-03-05] MEDS: INSULIN GLARGINE 100 UNIT/ML INSULN.PEN 14 UNIT SC (17:03)
[2024-03-05] MEDS: DOXAZOSIN 2 MG TABLET 4 MG GT (20:37)
[2024-03-06] VITALS (9 sets, daily range): BP systolic 94–137; BP diastolic 64–77; PULSE 64–78; RESP 18–21; TEMP 36.1–36.6; O2SAT 98–100
[2024-03-06] MEDS: IPRATROPIUM/ALBUTEROL 3 ML AMPUL.NEB INH ×4 (00:52→18:36)
[2024-03-06] MEDS: ERYTHROMYCIN ETHYLSUCCINATE 200 MG/5 ML ML 100 MG GT ×3 (05:43→21:12)
[2024-03-06] MEDS: AMLODIPINE 5 MG TABLET 2.5 MG GT (08:50)
[2024-03-06] MEDS: SENNOSIDES 8.6 MG TABLET GT ×2 (08:51→21:12)
[2024-03-06] MEDS: FAMOTIDINE 20 MG TABLET GT ×2 (08:51→21:12)
[2024-03-06] MEDS: FUROSEMIDE 20 MG TABLET GT (08:51)
--- NOTE | 2024-03-06 17:24 | ESPR_ITS ---
Progress Note - SubAcute DIAGNOSIS (1) Aneurysmal subarachnoid hemorrhage: Status: Chronic (2) DM type 2, goal HbA1c < 9%: Status: Chronic (3) Chronic respiratory failure: Status: Chronic (4) Tracheostomy in place: Status: Chronic (5) PEG (percutaneous endoscopic gastrostomy) status: Status: Chronic (6) Essential (primary) hypertension: Status: Acute SUBJECTIVE Fever:: none Shortness of Breath:: none GI:: no complaints Pain:: none OBJECTIVE Most recent vital signs: Last Vital Signs Temp 97.7 F 03/06/24 11:34 Pulse 73 03/06/24 11:34 Resp 21 H 03/06/24 11:34 BP 94/64 03/06/24 11:34 Pulse Ox 99 03/06/24 11:34 O2 Del Method Blow-by 03/06/24 11:34 O2 Flow Rate 6 03/06/24 11:34 FiO2 28 03/06/24 11:34 Neurological:: alert (responds to simple commands, shakes hands with his left) Speech:: none Answers questions:: no Respiratory:: shallow breathing Cardiovascular: RRR Abdomen: soft and nontender Extremities:: deformities Decubitus:: improved Tracheostomy:: to blow by Feeding per:: G tube Complaints:: none ASSESSMENT & PLAN Assessment: Pt. has certainly been awake and eye tracking some, does extend his left hand when offered a hand shake Diagnosis and treatment reviewed. All else stable, pt fully dependent for care. I had a detailed converiisation with pt's about his status and prognostic outlooks and explained in detail all her questions to which she was thankful even though more saddened by the reality of his condition and unpromising expectations. He shows no improvement in his chronic significant neurological deficit.No new issues Plans to take him home on hold for the time at pt's 's request for lack of resources to take good care of him at home. Recently started on Erythromycin low dose for improving GI motiliity and seems to be working as emesis now has been very infrequent. This was discussed in IDT with pts daughter over the phone. 02-23-24 Bedside meeting with pt's present along with RN and respiratory therapist and all questions answered. Family reconsidering possibility of taking pt home. No new issues. Comfort objective achieved. Plan: Current treatment as ongoing. . Family updated.
[2024-03-06] MEDS: INSULIN GLARGINE 100 UNIT/ML INSULN.PEN 14 UNIT SC (17:35)
[2024-03-06] MEDS: DOXAZOSIN 2 MG TABLET 4 MG GT (21:12)
[2024-03-06] MEDS: ONDANSETRON HCL 4 MG TABLET GT (22:55)
[2024-03-07] VITALS (9 sets, daily range): BP systolic 101–173; BP diastolic 65–75; PULSE 63–77; RESP 18–22; TEMP 36.1–36.3; O2SAT 97–100
[2024-03-07] MEDS: IPRATROPIUM/ALBUTEROL 3 ML AMPUL.NEB INH ×4 (00:50→19:18)
[2024-03-07] MEDS: ERYTHROMYCIN ETHYLSUCCINATE 200 MG/5 ML ML 100 MG GT ×3 (05:27→21:14)
[2024-03-07] MEDS: AMLODIPINE 5 MG TABLET 2.5 MG GT (09:33)
[2024-03-07] MEDS: FAMOTIDINE 20 MG TABLET GT ×2 (09:33→20:17)
[2024-03-07] MEDS: SENNOSIDES 8.6 MG TABLET GT ×2 (09:33→20:17)
[2024-03-07] MEDS: DEX/HYPRO/GLY ARTIFICAL TEARS 225 DROP/15 ML BTL BOTH EYES (09:33)
[2024-03-07] MEDS: FUROSEMIDE 20 MG TABLET GT (09:33)
[2024-03-07] MEDS: INSULIN GLARGINE 100 UNIT/ML INSULN.PEN 14 UNIT SC (17:37)
[2024-03-07] MEDS: DOXAZOSIN 2 MG TABLET 4 MG GT (20:17)
[2024-03-08] VITALS (8 sets, daily range): BP systolic 115–128; BP diastolic 72–78; PULSE 66–76; RESP 17–20; TEMP 36.2–36.5; O2SAT 96–100
[2024-03-08] MEDS: IPRATROPIUM/ALBUTEROL 3 ML AMPUL.NEB INH ×4 (00:31→19:00)
[2024-03-08] MEDS: ERYTHROMYCIN ETHYLSUCCINATE 200 MG/5 ML ML 100 MG GT ×3 (05:42→20:16)
[2024-03-08] MEDS: AMLODIPINE 5 MG TABLET 2.5 MG GT (09:03)
[2024-03-08] MEDS: FUROSEMIDE 20 MG TABLET GT (09:03)
[2024-03-08] MEDS: FAMOTIDINE 20 MG TABLET GT ×2 (09:03→20:16)
[2024-03-08] MEDS: DEX/HYPRO/GLY ARTIFICAL TEARS 225 DROP/15 ML BTL BOTH EYES (09:03)
[2024-03-08] MEDS: SENNOSIDES 8.6 MG TABLET GT ×2 (09:03→20:16)
[2024-03-08] MEDS: INSULIN GLARGINE 100 UNIT/ML INSULN.PEN 14 UNIT SC (16:59)
[2024-03-08] MEDS: ACETAMINOPHEN 325 MG TABLET 650 MG GT (20:10)
[2024-03-08] MEDS: DOXAZOSIN 2 MG TABLET 4 MG GT (20:16)
--- NOTE | 2024-03-08 21:20 | ESPR_ITS ---
Progress Note - SubAcute DIAGNOSIS (1) Aneurysmal subarachnoid hemorrhage: Status: Chronic (2) DM type 2, goal HbA1c < 9%: Status: Chronic (3) Chronic respiratory failure: Status: Chronic (4) Tracheostomy in place: Status: Chronic (5) PEG (percutaneous endoscopic gastrostomy) status: Status: Chronic (6) Essential (primary) hypertension: Status: Acute SUBJECTIVE Fever:: none Shortness of Breath:: none GI:: no complaints Pain:: none OBJECTIVE Most recent vital signs: Last Vital Signs Temp 97.7 F 03/08/24 16:58 Pulse 69 03/08/24 16:58 Resp 17 03/08/24 16:58 BP 125/78 03/08/24 16:58 Pulse Ox 99 03/08/24 16:58 O2 Del Method Blow-by 03/08/24 16:58 O2 Flow Rate 6 03/08/24 12:40 FiO2 28 03/08/24 12:40 Neurological:: alert (responds to simple commands, shakes hands with his left) Speech:: none Answers questions:: no Respiratory:: shallow breathing Cardiovascular: RRR Abdomen: soft and nontender Extremities:: deformities Decubitus:: improved Tracheostomy:: to blow by Feeding per:: G tube Complaints:: none ASSESSMENT & PLAN Assessment: Pt. has certainly been awake and eye tracking some, does extend his left hand when offered a hand shake Diagnosis and treatment reviewed. All else stable, pt fully dependent for care. I had a detailed converiisation with pt's about his status and prognostic outlooks and explained in detail all her questions to which she was thankful even though more saddened by the reality of his condition and unpromising expectations. He shows no improvement in his chronic significant neurological deficit.No new issues Plans to take him home on hold for the time at pt's 's request for lack of resources to take good care of him at home. Recently started on Erythromycin low dose for improving GI motiliity and seems to be working as emesis now has been very infrequent. This was discussed in IDT with pts daughter over the phone. 02-23-24 Bedside meeting with pt's present along with RN and respiratory therapist and all questions answered. Family reconsidering possibility of taking pt home. No new issues. Comfort objective achieved. Plan: Current treatment as ongoing. . Family updated.
[2024-03-09] VITALS (9 sets, daily range): BP systolic 102–133; BP diastolic 64–82; PULSE 66–73; RESP 16–20; TEMP 36.1–36.4; O2SAT 96–99
[2024-03-09] MEDS: IPRATROPIUM/ALBUTEROL 3 ML AMPUL.NEB INH ×4 (01:00→19:53)
[2024-03-09] MEDS: ERYTHROMYCIN ETHYLSUCCINATE 200 MG/5 ML ML 100 MG GT ×3 (06:01→20:10)
[2024-03-09 07:45] LABS: Basophils # (Auto) 0.1 Thou/mm3 (0.0-0.2); Basophils % (Auto) 1 % (0-2.5); Eosinophils # (Auto) 0.3 Thou/mm3 (0.0-0.5); Eosinophils % (Auto) 3 % (0-10); Hematocrit 34.4 % (41.0-53.0); Hemoglobin 11.4 g/dL (13.5-16.0); Immature Granulocytes % (Auto) 0 % (0-0); Immature Granulocytes Auto 0.04 Thou/mm3 (0.00-0.00); Lymphocytes # (Auto) 2.5 Thou/mm3 (1.0-4.8); Lymphocytes % (Auto) 23 % (10-50); Mean Corpuscular HGB Conc 33.1 g/dl (31.0-37.0); Mean Corpuscular Hemoglobin 29.5 pg (25.0-35.0); Mean Corpuscular Volume 89 fL (80-100); Monocytes % (Auto) 9 % (0-12); Neutrophils % (Auto) 64 % (37-80); Nucleated Red Blood Cell % 0 /100 WBC (0); Platelet Count 332 Thou/mm3 (140-440); RDW Standard Deviation 43.7 fL (35.1-43.9); Red Blood Count 3.87 Miln/mm3 (4.50-5.90); White Blood Count 10.9 Thou/mm3 (3.8-10.6)
[2024-03-09 08:08] LABS: Alanine Aminotransferase 21 U/L (10-49); Albumin, Serum 3.9 gm/dL (3.4-4.8); Albumin/Globulin Ratio 1.1 (1.2-2.2); Alkaline Phosphatase 105 U/L (46-116); Anion Gap 6 (7-16); Aspartate Amino Transferase 19 U/L (0-34); BUN/Creatinine Ratio 33 Ratio (12-20); Bilirubin,Total 0.5 mg/dL (0.3-1.2); Blood Urea Nitrogen 20 mg/dL (9-23); Calcium 10.1 mg/dL (8.3-10.6); Calcium (Corrected) 10.2 mg/dL (8.5-10.1); Carbon Dioxide 30.5 mMol/L (20.0-31.0); Chloride 101 mMol/L (98-107); Creatinine (Component) 0.6 mg/dL (0.6-1.3); Estimated Creatinine Clearance 127.4 mL/min (>60); Globulin 3.6 gm/dL (2.3-3.5); Glucose 94 mg/dL (74-106); Glucose,Fasting 94 mg/dL (74-106); Osmolality,Calculated 276 (275-295); Potassium 3.8 mMol/L (3.4-5.1); Sodium 137 mMol/L (136-145); Total Protein 7.5 gm/dL (5.7-8.2); eGFR > 60 See Note
[2024-03-09] MEDS: AMLODIPINE 5 MG TABLET 2.5 MG GT (08:46)
[2024-03-09] MEDS: DEX/HYPRO/GLY ARTIFICAL TEARS 225 DROP/15 ML BTL BOTH EYES (08:46)
[2024-03-09] MEDS: FUROSEMIDE 20 MG TABLET GT (08:46)
[2024-03-09] MEDS: FAMOTIDINE 20 MG TABLET GT ×2 (08:46→20:08)
[2024-03-09] MEDS: SENNOSIDES 8.6 MG TABLET GT ×2 (08:46→20:08)
[2024-03-09] MEDS: INSULIN GLARGINE 100 UNIT/ML INSULN.PEN 14 UNIT SC (17:10)
[2024-03-09] MEDS: DOXAZOSIN 2 MG TABLET 4 MG GT (20:08)
[2024-03-09] MEDS: ACETAMINOPHEN 325 MG TABLET 650 MG GT (20:10)
[2024-03-10] VITALS (11 sets, daily range): BP systolic 102–121; BP diastolic 61–76; PULSE 65–89; RESP 16–27; TEMP 36.1–36.4; O2SAT 97–100
[2024-03-10] MEDS: IPRATROPIUM/ALBUTEROL 3 ML AMPUL.NEB INH ×5 (01:18→18:11)
[2024-03-10] MEDS: ERYTHROMYCIN ETHYLSUCCINATE 200 MG/5 ML ML 100 MG GT ×3 (05:47→20:33)
[2024-03-10] MEDS: DEX/HYPRO/GLY ARTIFICAL TEARS 225 DROP/15 ML BTL BOTH EYES (08:55)
[2024-03-10] MEDS: AMLODIPINE 5 MG TABLET 2.5 MG GT (08:55)
[2024-03-10] MEDS: FAMOTIDINE 20 MG TABLET GT ×2 (08:55→20:33)
[2024-03-10] MEDS: SENNOSIDES 8.6 MG TABLET GT ×2 (08:56→20:33)
[2024-03-10] MEDS: FUROSEMIDE 20 MG TABLET GT (08:56)
[2024-03-10] MEDS: ACETAMINOPHEN 325 MG TABLET 650 MG GT ×2 (10:49→20:25)
--- NOTE | 2024-03-10 17:14 | PC.NURSE ---
Notified Dr. Diaz of pt SOB/increased work of breathing and wheezing. Ordered additional duoneb treatment for pt. Order entered. RT contacted. Will come give breathing treatment
--- NOTE | 2024-03-10 17:49 | PC.NURSE ---
Notified Dr. Diaz of unrelieved wheezing and pt complaint of SOB after breathing treatment. Dr. Diaz thinks it may be anxiety related. Verbal order for 0.5mg Ativan for anxiety. Current vitals BP 118/61, HR 80, RR 19, O2 97%, Temp 97.8
[2024-03-10] MEDS: INSULIN GLARGINE 100 UNIT/ML INSULN.PEN 14 UNIT SC (17:50)
[2024-03-10] MEDS: DOXAZOSIN 2 MG TABLET 4 MG GT (20:32)
[2024-03-10] MEDS: LORazepam 0.5 MG TABLET GT (21:25)
[2024-03-11] VITALS (7 sets, daily range): BP systolic 109–133; BP diastolic 65–82; PULSE 72–82; RESP 18–26; TEMP 35.9–37; O2SAT 96–100
[2024-03-11] MEDS: IPRATROPIUM/ALBUTEROL 3 ML AMPUL.NEB INH ×4 (00:22→18:25)
[2024-03-11] MEDS: ERYTHROMYCIN ETHYLSUCCINATE 200 MG/5 ML ML 100 MG GT ×3 (05:11→21:05)
[2024-03-11] MEDS: FUROSEMIDE 20 MG TABLET GT (09:33)
[2024-03-11] MEDS: SENNOSIDES 8.6 MG TABLET GT ×2 (09:33→21:05)
[2024-03-11] MEDS: DEX/HYPRO/GLY ARTIFICAL TEARS 225 DROP/15 ML BTL BOTH EYES (09:33)
[2024-03-11] MEDS: FAMOTIDINE 20 MG TABLET GT ×2 (09:33→21:05)
[2024-03-11] MEDS: AMLODIPINE 5 MG TABLET 2.5 MG GT (09:33)
[2024-03-11] MEDS: INSULIN GLARGINE 100 UNIT/ML INSULN.PEN 14 UNIT SC (17:15)
[2024-03-12] VITALS (8 sets, daily range): BP systolic 100–129; BP diastolic 65–78; PULSE 68–76; RESP 18–20; TEMP 36.2–36.8; O2SAT 97–100
[2024-03-12] MEDS: IPRATROPIUM/ALBUTEROL 3 ML AMPUL.NEB INH ×4 (01:17→18:05)
[2024-03-12] MEDS: ERYTHROMYCIN ETHYLSUCCINATE 200 MG/5 ML ML 100 MG GT ×3 (05:37→22:52)
[2024-03-12] MEDS: DEX/HYPRO/GLY ARTIFICAL TEARS 225 DROP/15 ML BTL BOTH EYES (08:48)
[2024-03-12] MEDS: SENNOSIDES 8.6 MG TABLET GT ×2 (08:49→21:00)
[2024-03-12] MEDS: FUROSEMIDE 20 MG TABLET GT (08:49)
[2024-03-12] MEDS: FAMOTIDINE 20 MG TABLET GT ×2 (08:49→21:00)
--- NOTE | 2024-03-12 14:57 | PC.SS ---
Room visit: Resident is laying in bed with head of the bed elevated with call light properly placed with no signs of distress. Resident has no changes in care or condition, resident remains on blow by with trach in place and GT for medication and nutrition. Resident will remain in current care a unitl he is able to DC to home with family. Resident comes in three days a week and works with staff on her patient care skills. He will continue to have all subacute care needs met by staff until cleared for DC to home. This SSD will continue to make daily contact with resident and monitor for changes in mood and behavior.
[2024-03-12] MEDS: INSULIN GLARGINE 100 UNIT/ML INSULN.PEN 14 UNIT SC (17:30)
--- NOTE | 2024-03-12 21:27 | ESPR_ITS ---
Progress Note - SubAcute DIAGNOSIS (1) Aneurysmal subarachnoid hemorrhage: Status: Chronic (2) DM type 2, goal HbA1c < 9%: Status: Chronic (3) Chronic respiratory failure: Status: Chronic (4) Tracheostomy in place: Status: Chronic (5) PEG (percutaneous endoscopic gastrostomy) status: Status: Chronic (6) Essential (primary) hypertension: Status: Acute SUBJECTIVE Fever:: none Shortness of Breath:: none GI:: no complaints Pain:: none OBJECTIVE Most recent vital signs: Last Vital Signs Temp 98.2 F 03/12/24 16:44 Pulse 76 03/12/24 16:44 Resp 20 03/12/24 16:44 BP 100/65 03/12/24 16:44 Pulse Ox 100 03/12/24 12:05 O2 Del Method Blow-by 03/12/24 12:00 O2 Flow Rate 6 03/12/24 12:05 FiO2 218 03/12/24 12:05 Neurological:: alert (responds to simple commands, shakes hands with his left) Speech:: none Answers questions:: no Respiratory:: shallow breathing Cardiovascular: RRR Abdomen: soft and nontender Extremities:: deformities Decubitus:: improved Tracheostomy:: to blow by Feeding per:: G tube Complaints:: none ASSESSMENT & PLAN Assessment: Pt. has certainly been awake and eye tracking some, does extend his left hand when offered a hand shake Diagnosis and treatment reviewed. All else stable, pt fully dependent for care. I had a detailed converiisation with pt's about his status and prognostic outlooks and explained in detail all her questions to which she was thankful even though more saddened by the reality of his condition and unpromising expectations. He shows no improvement in his chronic significant neurological deficit.No new issues Plans to take him home on hold for the time at pt's 's request for lack of resources to take good care of him at home. Recently started on Erythromycin low dose for improving GI motiliity and seems to be working as emesis now has been very infrequent. This was discussed in IDT with pts daughter over the phone. 02-23-24 Bedside meeting with pt's present along with RN and respiratory therapist and all questions answered. Family reconsidering possibility of taking pt home. No new issues. Comfort objective achieved. Plan: Current treatment as ongoing. . Family updated.
[2024-03-13] VITALS (9 sets, daily range): BP systolic 101–190; BP diastolic 53–69; PULSE 71–99; RESP 18; TEMP 36.1–36.4; O2SAT 98–100
[2024-03-13] MEDS: IPRATROPIUM/ALBUTEROL 3 ML AMPUL.NEB INH ×4 (00:40→18:45)
[2024-03-13] MEDS: ERYTHROMYCIN ETHYLSUCCINATE 200 MG/5 ML ML 100 MG GT ×3 (05:18→21:21)
[2024-03-13] MEDS: SENNOSIDES 8.6 MG TABLET GT ×2 (09:13→20:53)
[2024-03-13] MEDS: DEX/HYPRO/GLY ARTIFICAL TEARS 225 DROP/15 ML BTL BOTH EYES (09:13)
[2024-03-13] MEDS: FAMOTIDINE 20 MG TABLET GT ×2 (09:13→20:53)
[2024-03-13] MEDS: FUROSEMIDE 20 MG TABLET GT (09:13)
[2024-03-13] MEDS: ONDANSETRON HCL 4 MG TABLET GT (14:22)
--- NOTE | 2024-03-13 14:32 | PC.NURSE ---
PLAYGROUND EQUIPMENT ERECTORLorri Brandon reported resident had a large emesis. Industrial Recruiter unable to assess amount or color of emesis. PLAYGROUND EQUIPMENT ERECTOR had cleaned up resident. Assessed resident's status. Resident remains alert, asked if he was ok he nodded head no. Resident appeared flushed and sweaty with increased respirations to 28 BPM, assessed O2 saturation 97%, Accu check performed BS145, VS 111/53, 74, 97.5. Notified MD. order to hold TFx2 hours. Administered Zofran as per order. Will contine to monitor.
[2024-03-13] MEDS: INSULIN GLARGINE 100 UNIT/ML INSULN.PEN 14 UNIT SC (17:35)
[2024-03-13] MEDS: DOXAZOSIN 2 MG TABLET 4 MG GT (20:53)
[2024-03-13] MEDS: ACETAMINOPHEN 325 MG TABLET 650 MG GT (20:54)
[2024-03-14] VITALS (10 sets, daily range): BP systolic 99–160; BP diastolic 65–78; PULSE 66–82; RESP 18–20; TEMP 35.7–36.4; O2SAT 96–100
[2024-03-14] MEDS: IPRATROPIUM/ALBUTEROL 3 ML AMPUL.NEB INH ×5 (00:40→18:05)
[2024-03-14] MEDS: ONDANSETRON HCL 4 MG TABLET GT ×2 (07:55→21:08)
[2024-03-14] MEDS: DEX/HYPRO/GLY ARTIFICAL TEARS 225 DROP/15 ML BTL BOTH EYES (08:06)
[2024-03-14] MEDS: FAMOTIDINE 20 MG TABLET GT ×2 (08:07→20:16)
[2024-03-14] MEDS: FUROSEMIDE 20 MG TABLET GT (08:07)
[2024-03-14] MEDS: SENNOSIDES 8.6 MG TABLET GT ×2 (08:07→20:16)
--- NOTE | 2024-03-14 13:12 | PC.NURSE ---
At around 09:30 , resident noted to have an odd sound when he breathe . Respiration even and unlabored, O2 sat at 96-97% Denies any pain or discomfort. Trach noted to be partially out and RT unable to push it back in. RT changed his trach without difficulty. No bleeding noted. No further odd sound noted after. Remains stable, alert and responsive.
[2024-03-14] MEDS: INSULIN GLARGINE 100 UNIT/ML INSULN.PEN 14 UNIT SC (17:18)
[2024-03-15] VITALS (9 sets, daily range): BP systolic 96–130; BP diastolic 61–82; PULSE 60–85; RESP 16–25; TEMP 36.2–36.4; O2SAT 94–100
[2024-03-15] MEDS: IPRATROPIUM/ALBUTEROL 3 ML AMPUL.NEB INH ×4 (00:51→19:00)
[2024-03-15] MEDS: ERYTHROMYCIN ETHYLSUCCINATE 200 MG/5 ML ML 100 MG GT ×3 (05:09→21:03)
[2024-03-15] MEDS: AMLODIPINE 5 MG TABLET 2.5 MG GT (09:21)
[2024-03-15] MEDS: SENNOSIDES 8.6 MG TABLET GT ×2 (09:22→20:07)
[2024-03-15] MEDS: FUROSEMIDE 20 MG TABLET GT (09:22)
[2024-03-15] MEDS: DEX/HYPRO/GLY ARTIFICAL TEARS 225 DROP/15 ML BTL BOTH EYES (09:22)
[2024-03-15] MEDS: FAMOTIDINE 20 MG TABLET GT ×2 (09:22→20:07)
[2024-03-15] MEDS: INSULIN GLARGINE 100 UNIT/ML INSULN.PEN 14 UNIT SC (17:17)
[2024-03-15] MEDS: DOXAZOSIN 2 MG TABLET 4 MG GT (20:07)
[2024-03-15] MEDS: ONDANSETRON HCL 4 MG TABLET GT (20:07)
[2024-03-15] MEDS: MAGNESIUM HYDROXIDE 30 ML ORAL SUSP ML GT (21:24)
[2024-03-16] VITALS (9 sets, daily range): BP systolic 107–132; BP diastolic 69–79; PULSE 69–81; RESP 18–21; TEMP 36.1–36.3; O2SAT 97–99
[2024-03-16] MEDS: IPRATROPIUM/ALBUTEROL 3 ML AMPUL.NEB INH ×4 (00:50→18:36)
[2024-03-16] MEDS: ERYTHROMYCIN ETHYLSUCCINATE 200 MG/5 ML ML 100 MG GT ×3 (05:04→22:01)
[2024-03-16] MEDS: AMLODIPINE 5 MG TABLET 2.5 MG GT (09:01)
[2024-03-16] MEDS: FAMOTIDINE 20 MG TABLET GT ×2 (09:02→20:30)
[2024-03-16] MEDS: DEX/HYPRO/GLY ARTIFICAL TEARS 225 DROP/15 ML BTL BOTH EYES (09:02)
[2024-03-16] MEDS: FUROSEMIDE 20 MG TABLET GT (09:02)
[2024-03-16] MEDS: SENNOSIDES 8.6 MG TABLET GT ×2 (09:02→20:30)
[2024-03-16] MEDS: INSULIN GLARGINE 100 UNIT/ML INSULN.PEN 14 UNIT SC (17:26)
[2024-03-16] MEDS: DOXAZOSIN 2 MG TABLET 4 MG GT (20:30)
--- NOTE | 2024-03-16 22:11 | ESPR_ITS ---
Progress Note - SubAcute DIAGNOSIS (1) Aneurysmal subarachnoid hemorrhage: Status: Chronic (2) DM type 2, goal HbA1c < 9%: Status: Chronic (3) Chronic respiratory failure: Status: Chronic (4) Tracheostomy in place: Status: Chronic (5) PEG (percutaneous endoscopic gastrostomy) status: Status: Chronic (6) Essential (primary) hypertension: Status: Acute SUBJECTIVE Fever:: none Shortness of Breath:: none GI:: no complaints Pain:: none OBJECTIVE Most recent vital signs: Last Vital Signs Temp 97.3 F 03/16/24 17:16 Pulse 76 03/16/24 17:16 Resp 21 H 03/16/24 17:16 BP 132/79 H 03/16/24 17:16 Pulse Ox 99 03/16/24 12:40 O2 Del Method Blow-by 03/16/24 11:47 O2 Flow Rate 6 03/16/24 12:40 FiO2 28 03/16/24 12:40 Neurological:: alert (responds to simple commands, shakes hands with his left) Speech:: none Answers questions:: no Respiratory:: shallow breathing Cardiovascular: RRR Abdomen: soft and nontender Extremities:: deformities Decubitus:: improved Tracheostomy:: to blow by Feeding per:: G tube Complaints:: none ASSESSMENT & PLAN Assessment: Pt. has certainly been awake and eye tracking some, does extend his left hand when offered a hand shake Diagnosis and treatment reviewed. All else stable, pt fully dependent for care. I had a detailed converiisation with pt's about his status and prognostic outlooks and explained in detail all her questions to which she was thankful even though more saddened by the reality of his condition and unpromising expectations. He shows no improvement in his chronic significant neurological deficit.No new issues Plans to take him home on hold for the time at pt's 's request for lack of resources to take good care of him at home. Recently started on Erythromycin low dose for improving GI motiliity and seems to be working as emesis now has been very infrequent. This was discussed in IDT with pts daughter over the phone. 02-23-24 Bedside meeting with pt's present along with RN and respiratory therapist and all questions answered. Family reconsidering possibility of taking pt home. No new issues. Comfort objective achieved. Plan: Current treatment as ongoing. . Family updated.
[2024-03-17] VITALS (7 sets, daily range): BP systolic 98–130; BP diastolic 59–83; PULSE 66–86; RESP 18–20; TEMP 35.7–36.5; O2SAT 97–99
[2024-03-17] MEDS: IPRATROPIUM/ALBUTEROL 3 ML AMPUL.NEB INH ×4 (00:38→18:00)
[2024-03-17] MEDS: ONDANSETRON HCL 4 MG TABLET GT (01:07)
[2024-03-17] MEDS: ERYTHROMYCIN ETHYLSUCCINATE 200 MG/5 ML ML 100 MG GT ×3 (05:30→21:10)
[2024-03-17] MEDS: FAMOTIDINE 20 MG TABLET GT ×2 (08:35→20:24)
[2024-03-17] MEDS: AMLODIPINE 5 MG TABLET 2.5 MG GT (08:35)
[2024-03-17] MEDS: FUROSEMIDE 20 MG TABLET GT (08:35)
[2024-03-17] MEDS: SENNOSIDES 8.6 MG TABLET GT ×2 (08:35→20:24)
[2024-03-17] MEDS: DEX/HYPRO/GLY ARTIFICAL TEARS 225 DROP/15 ML BTL BOTH EYES (08:35)
[2024-03-17] MEDS: INSULIN GLARGINE 100 UNIT/ML INSULN.PEN 14 UNIT SC (17:27)
[2024-03-18] VITALS (8 sets, daily range): BP systolic 103–122; BP diastolic 65–75; PULSE 68–81; RESP 18–20; TEMP 36.2–36.3; O2SAT 95–99
[2024-03-18] MEDS: IPRATROPIUM/ALBUTEROL 3 ML AMPUL.NEB INH ×4 (00:30→19:30)
[2024-03-18] MEDS: ERYTHROMYCIN ETHYLSUCCINATE 200 MG/5 ML ML 100 MG GT ×3 (05:14→20:09)
[2024-03-18] MEDS: AMLODIPINE 5 MG TABLET 2.5 MG GT (08:36)
[2024-03-18] MEDS: FUROSEMIDE 20 MG TABLET GT (08:37)
[2024-03-18] MEDS: SENNOSIDES 8.6 MG TABLET GT ×2 (08:37→20:09)
[2024-03-18] MEDS: FAMOTIDINE 20 MG TABLET GT ×2 (08:37→20:09)
[2024-03-18] MEDS: DEX/HYPRO/GLY ARTIFICAL TEARS 225 DROP/15 ML BTL BOTH EYES (09:20)
[2024-03-18] MEDS: INSULIN GLARGINE 100 UNIT/ML INSULN.PEN 14 UNIT SC (17:22)
[2024-03-18] MEDS: ACETAMINOPHEN 325 MG TABLET 650 MG GT (20:05)
[2024-03-18] MEDS: DOXAZOSIN 2 MG TABLET 4 MG GT (20:09)
[2024-03-19] VITALS (10 sets, daily range): BP systolic 98–137; BP diastolic 58–82; PULSE 63–75; RESP 18–20; TEMP 36.1–36.6; O2SAT 95–100
[2024-03-19] MEDS: IPRATROPIUM/ALBUTEROL 3 ML AMPUL.NEB INH ×4 (01:15→19:02)
[2024-03-19] MEDS: ERYTHROMYCIN ETHYLSUCCINATE 200 MG/5 ML ML 100 MG GT ×3 (05:37→20:33)
[2024-03-19] MEDS: FAMOTIDINE 20 MG TABLET GT ×2 (09:00→20:33)
[2024-03-19] MEDS: DEX/HYPRO/GLY ARTIFICAL TEARS 225 DROP/15 ML BTL BOTH EYES (09:00)
[2024-03-19] MEDS: FUROSEMIDE 20 MG TABLET GT (09:00)
[2024-03-19] MEDS: SENNOSIDES 8.6 MG TABLET GT ×2 (09:01→20:33)
[2024-03-19] MEDS: INSULIN GLARGINE 100 UNIT/ML INSULN.PEN 14 UNIT SC (17:35)
[2024-03-19] MEDS: DOXAZOSIN 2 MG TABLET 4 MG GT (20:33)
[2024-03-19] MEDS: ACETAMINOPHEN 325 MG TABLET 650 MG GT (20:35)
[2024-03-20] VITALS (8 sets, daily range): BP systolic 106–127; BP diastolic 66–76; PULSE 60–73; RESP 16–18; TEMP 35.9–36.3; O2SAT 98–100
[2024-03-20] MEDS: IPRATROPIUM/ALBUTEROL 3 ML AMPUL.NEB INH ×4 (00:08→18:28)
[2024-03-20] MEDS: ERYTHROMYCIN ETHYLSUCCINATE 200 MG/5 ML ML 100 MG GT ×3 (05:31→20:02)
[2024-03-20] MEDS: FAMOTIDINE 20 MG TABLET GT ×2 (09:11→20:02)
[2024-03-20] MEDS: SENNOSIDES 8.6 MG TABLET GT ×2 (09:11→20:02)
[2024-03-20] MEDS: DEX/HYPRO/GLY ARTIFICAL TEARS 225 DROP/15 ML BTL BOTH EYES (09:11)
[2024-03-20] MEDS: FUROSEMIDE 20 MG TABLET GT (09:11)
--- NOTE | 2024-03-20 11:55 | ESPR_ITS ---
Progress Note - SubAcute DIAGNOSIS (1) Aneurysmal subarachnoid hemorrhage: Status: Chronic (2) DM type 2, goal HbA1c < 9%: Status: Chronic (3) Chronic respiratory failure: Status: Chronic (4) Tracheostomy in place: Status: Chronic (5) PEG (percutaneous endoscopic gastrostomy) status: Status: Chronic (6) Essential (primary) hypertension: Status: Acute SUBJECTIVE Fever:: none Shortness of Breath:: none GI:: no complaints Pain:: none OBJECTIVE Most recent vital signs: Last Vital Signs Temp 97.0 F 03/21/24 06:00 Pulse 75 03/21/24 08:15 Resp 18 03/21/24 06:00 BP 111/72 03/21/24 08:15 Pulse Ox 98 03/21/24 06:00 O2 Del Method Blow-by 03/21/24 06:00 O2 Flow Rate 6 03/21/24 06:00 FiO2 28 03/21/24 06:00 Neurological:: alert (responds to simple commands, shakes hands with his left) Speech:: none Answers questions:: no Respiratory:: shallow breathing Cardiovascular: RRR Abdomen: soft and nontender Extremities:: deformities Decubitus:: improved Tracheostomy:: to blow by Feeding per:: G tube Complaints:: none ASSESSMENT & PLAN Assessment: Pt. has certainly been awake and eye tracking some, does extend his left hand when offered a hand shake Diagnosis and treatment reviewed. All else stable, pt fully dependent for care. I had a detailed converiisation with pt's about his status and prognostic outlooks and explained in detail all her questions to which she was thankful even though more saddened by the reality of his condition and unpromising expectations. He shows no improvement in his chronic significant neurological deficit.No new issues Plans to take him home on hold for the time at pt's 's request for lack of resources to take good care of him at home. Recently started on Erythromycin low dose for improving GI motiliity and seems to be working as emesis now has been very infrequent. This was discussed in IDT with pts daughter over the phone. 02-23-24 Bedside meeting with pt's present along with RN and respiratory therapist and all questions answered. Family reconsidering possibility of taking pt home. No decision finalized . No new issues. Comfort objective achieved. Plan: Current treatment as ongoing. . Family updated.
[2024-03-20] MEDS: INSULIN GLARGINE 100 UNIT/ML INSULN.PEN 14 UNIT SC (17:33)
[2024-03-20] MEDS: DOXAZOSIN 2 MG TABLET 4 MG GT (20:01)
[2024-03-21] VITALS (9 sets, daily range): BP systolic 102–136; BP diastolic 65–79; PULSE 62–76; RESP 18–20; TEMP 36.1–36.3; O2SAT 97–100
[2024-03-21] MEDS: IPRATROPIUM/ALBUTEROL 3 ML AMPUL.NEB INH ×4 (00:55→12:30)
[2024-03-21] MEDS: ERYTHROMYCIN ETHYLSUCCINATE 200 MG/5 ML ML 100 MG GT ×3 (05:47→20:29)
[2024-03-21] MEDS: AMLODIPINE 5 MG TABLET 2.5 MG GT (08:15)
[2024-03-21] MEDS: SENNOSIDES 8.6 MG TABLET GT ×2 (08:16→20:29)
[2024-03-21] MEDS: DEX/HYPRO/GLY ARTIFICAL TEARS 225 DROP/15 ML BTL BOTH EYES (08:16)
[2024-03-21] MEDS: FAMOTIDINE 20 MG TABLET GT ×2 (08:16→20:29)
[2024-03-21] MEDS: FUROSEMIDE 20 MG TABLET GT (08:16)
[2024-03-21] MEDS: INSULIN GLARGINE 100 UNIT/ML INSULN.PEN 14 UNIT SC (17:34)
[2024-03-21] MEDS: ONDANSETRON HCL 4 MG TABLET GT (18:13)
[2024-03-21] MEDS: ACETAMINOPHEN 325 MG TABLET 650 MG GT (20:20)
[2024-03-21] MEDS: DOXAZOSIN 2 MG TABLET 4 MG GT (20:29)
[2024-03-22] VITALS (10 sets, daily range): BP systolic 95–135; BP diastolic 55–82; PULSE 63–77; RESP 16–20; TEMP 36.1–36.6; O2SAT 97–99
[2024-03-22] MEDS: IPRATROPIUM/ALBUTEROL 3 ML AMPUL.NEB INH ×4 (01:15→19:58)
[2024-03-22] MEDS: ERYTHROMYCIN ETHYLSUCCINATE 200 MG/5 ML ML 100 MG GT ×3 (06:02→21:23)
[2024-03-22] MEDS: SENNOSIDES 8.6 MG TABLET GT ×2 (09:01→21:22)
[2024-03-22] MEDS: FUROSEMIDE 20 MG TABLET GT (09:01)
[2024-03-22] MEDS: DEX/HYPRO/GLY ARTIFICAL TEARS 225 DROP/15 ML BTL BOTH EYES (09:01)
[2024-03-22] MEDS: FAMOTIDINE 20 MG TABLET GT ×2 (09:01→21:22)
[2024-03-22] MEDS: ACETAMINOPHEN 325 MG TABLET 650 MG GT (10:25)
[2024-03-22] MEDS: INSULIN GLARGINE 100 UNIT/ML INSULN.PEN 14 UNIT SC (17:59)
[2024-03-22] MEDS: INSULIN REGULAR, HUMAN 100 UNIT/ML VIAL SC (17:59)
[2024-03-22] MEDS: DOXAZOSIN 2 MG TABLET 4 MG GT (21:22)
[2024-03-22] MEDS: ONDANSETRON HCL 4 MG TABLET GT (22:32)
[2024-03-23] VITALS (8 sets, daily range): BP systolic 101–118; BP diastolic 54–79; PULSE 63–95; RESP 16–20; TEMP 36.2–36.3; O2SAT 96–99
[2024-03-23] MEDS: IPRATROPIUM/ALBUTEROL 3 ML AMPUL.NEB INH ×3 (01:56→11:00)
[2024-03-23] MEDS: ERYTHROMYCIN ETHYLSUCCINATE 200 MG/5 ML ML 100 MG GT ×3 (05:06→21:14)
[2024-03-23] MEDS: DEX/HYPRO/GLY ARTIFICAL TEARS 225 DROP/15 ML BTL BOTH EYES (08:52)
[2024-03-23] MEDS: SENNOSIDES 8.6 MG TABLET GT ×2 (08:53→21:13)
[2024-03-23] MEDS: FUROSEMIDE 20 MG TABLET GT (08:53)
[2024-03-23] MEDS: FAMOTIDINE 20 MG TABLET GT ×2 (08:53→21:13)
--- NOTE | 2024-03-23 15:31 | PC.RT ---
per idt meeting svn changed to prn
[2024-03-23] MEDS: INSULIN GLARGINE 100 UNIT/ML INSULN.PEN 14 UNIT SC (17:18)
[2024-03-23] MEDS: ONDANSETRON HCL 4 MG TABLET GT (19:50)
[2024-03-23] MEDS: DOXAZOSIN 2 MG TABLET 4 MG GT (21:13)
[2024-03-23] MEDS: MAG HYDROX/ALUMINUM HYD/SIMETH 355 ML BTL 30 ML PO (21:14)
[2024-03-24] VITALS (7 sets, daily range): BP systolic 105–122; BP diastolic 69–76; PULSE 65–74; RESP 16–21; TEMP 36.1–36.7; O2SAT 98–99
[2024-03-24] MEDS: ERYTHROMYCIN ETHYLSUCCINATE 200 MG/5 ML ML 100 MG GT ×3 (05:22→21:27)
[2024-03-24] MEDS: FAMOTIDINE 20 MG TABLET GT ×2 (08:35→20:25)
[2024-03-24] MEDS: AMLODIPINE 5 MG TABLET 2.5 MG GT (08:35)
[2024-03-24] MEDS: SENNOSIDES 8.6 MG TABLET GT ×2 (08:35→20:25)
[2024-03-24] MEDS: DEX/HYPRO/GLY ARTIFICAL TEARS 225 DROP/15 ML BTL BOTH EYES (08:35)
[2024-03-24] MEDS: FUROSEMIDE 20 MG TABLET GT (08:35)
--- NOTE | 2024-03-24 10:41 | PC.NURSE ---
Evaluated by ST today. No changes on resident's swallowing, resident is safe to swallow. ST will add 1 item on his meal for resident to have choices.
[2024-03-24] MEDS: INSULIN GLARGINE 100 UNIT/ML INSULN.PEN 14 UNIT SC (17:16)
[2024-03-24] MEDS: DOXAZOSIN 2 MG TABLET 4 MG GT (20:25)
--- NOTE | 2024-03-24 22:37 | ESPR_ITS ---
Progress Note - SubAcute DIAGNOSIS (1) Aneurysmal subarachnoid hemorrhage: Status: Chronic (2) DM type 2, goal HbA1c < 9%: Status: Chronic (3) Chronic respiratory failure: Status: Chronic (4) Tracheostomy in place: Status: Chronic (5) PEG (percutaneous endoscopic gastrostomy) status: Status: Chronic (6) Essential (primary) hypertension: Status: Acute SUBJECTIVE Fever:: none Shortness of Breath:: none GI:: no complaints Pain:: none OBJECTIVE Most recent vital signs: Last Vital Signs Temp 98.0 F 03/24/24 17:22 Pulse 74 03/24/24 17:22 Resp 19 03/24/24 17:22 BP 105/69 03/24/24 17:22 Pulse Ox 98 03/24/24 11:35 O2 Del Method Blow-by 03/24/24 11:35 O2 Flow Rate 6 03/24/24 11:35 FiO2 28 03/24/24 11:35 Neurological:: alert (responds to simple commands, shakes hands with his left) Speech:: none Answers questions:: no Respiratory:: shallow breathing Cardiovascular: RRR Abdomen: soft and nontender Extremities:: deformities Decubitus:: improved Tracheostomy:: to blow by Feeding per:: G tube Complaints:: none ASSESSMENT & PLAN Assessment: Pt. has certainly been awake and eye tracking some, does extend his left hand when offered a hand shake Diagnosis and treatment reviewed. All else stable, pt fully dependent for care. I had a detailed converiisation with pt's about his status and prognostic outlooks and explained in detail all her questions to which she was thankful even though more saddened by the reality of his condition and unpromising expectations. He shows no improvement in his chronic significant neurological deficit.No new issues Plans to take him home on hold for the time at pt's 's request for lack of resources to take good care of him at home. Recently started on Erythromycin low dose for improving GI motiliity and seems to be working as emesis now has been very infrequent. This was discussed in IDT with pts daughter over the phone. 02-23-24 Bedside meeting with pt's present along with RN and respiratory therapist and all questions answered. Family reconsidering possibility of taking pt home. No decision finalized . No new issues. Comfort objective achieved. Plan: Current treatment as ongoing. . Family updated.
[2024-03-25] VITALS (8 sets, daily range): BP systolic 100–121; BP diastolic 50–73; PULSE 63–88; RESP 18–20; TEMP 36.1–36.2; O2SAT 98–100
[2024-03-25] MEDS: ERYTHROMYCIN ETHYLSUCCINATE 200 MG/5 ML ML 100 MG GT ×2 (05:21→14:32)
[2024-03-25] MEDS: IPRATROPIUM/ALBUTEROL 3 ML AMPUL.NEB INH ×3 (06:15→18:31)
[2024-03-25] MEDS: FUROSEMIDE 20 MG TABLET GT (08:58)
[2024-03-25] MEDS: FAMOTIDINE 20 MG TABLET GT ×2 (08:58→20:54)
[2024-03-25] MEDS: DEX/HYPRO/GLY ARTIFICAL TEARS 225 DROP/15 ML BTL BOTH EYES (08:58)
[2024-03-25] MEDS: SENNOSIDES 8.6 MG TABLET GT ×2 (08:58→20:54)
--- NOTE | 2024-03-25 15:33 | PC.RT ---
Pt placed on Q6 treatment due to SOB and wheezing, Dr. Diaz aware.
[2024-03-25] MEDS: ONDANSETRON HCL 4 MG TABLET GT (15:53)
[2024-03-25] MEDS: INSULIN GLARGINE 100 UNIT/ML INSULN.PEN 14 UNIT SC (17:33)
[2024-03-25] MEDS: DOXAZOSIN 2 MG TABLET 4 MG GT (20:54)
[2024-03-26] VITALS (7 sets, daily range): BP systolic 91–119; BP diastolic 62–72; PULSE 70–92; RESP 16–19; TEMP 36.4–36.5; O2SAT 98–100
[2024-03-26] MEDS: IPRATROPIUM/ALBUTEROL 3 ML AMPUL.NEB INH ×4 (00:37→18:55)
[2024-03-26] MEDS: ERYTHROMYCIN ETHYLSUCCINATE 200 MG/5 ML ML 100 MG GT ×3 (05:24→20:26)
[2024-03-26] MEDS: DEX/HYPRO/GLY ARTIFICAL TEARS 225 DROP/15 ML BTL BOTH EYES (08:27)
[2024-03-26] MEDS: FAMOTIDINE 20 MG TABLET GT ×2 (08:27→20:26)
[2024-03-26] MEDS: FUROSEMIDE 20 MG TABLET GT (08:27)
[2024-03-26] MEDS: SENNOSIDES 8.6 MG TABLET GT ×2 (08:27→20:26)
--- NOTE | 2024-03-26 15:24 | PC.SS ---
Room visit: Resident is laying in bed with head of the bed elevated with call light properly placed with no signs of distress. Resident remains on blow by with trach in place and GT for medication and nutrition. Resident is his decision maker as he is unable to make needs known or decide for self. He will remain in current care as he has no changes in care or condition. This SSD will continue to make contact with resident and monitor for changes in mood and behavior.
[2024-03-26] MEDS: INSULIN GLARGINE 100 UNIT/ML INSULN.PEN 14 UNIT SC (17:47)
[2024-03-26] MEDS: DOXAZOSIN 2 MG TABLET 4 MG GT (20:26)
[2024-03-27] VITALS (9 sets, daily range): BP systolic 110–134; BP diastolic 69–77; PULSE 65–71; RESP 16–20; TEMP 36.2–36.8; O2SAT 98–100
[2024-03-27] MEDS: IPRATROPIUM/ALBUTEROL 3 ML AMPUL.NEB INH ×4 (00:23→19:46)
[2024-03-27] MEDS: ERYTHROMYCIN ETHYLSUCCINATE 200 MG/5 ML ML 100 MG GT ×3 (05:37→21:00)
[2024-03-27] MEDS: FUROSEMIDE 20 MG TABLET GT (08:20)
[2024-03-27] MEDS: DEX/HYPRO/GLY ARTIFICAL TEARS 225 DROP/15 ML BTL BOTH EYES (08:20)
[2024-03-27] MEDS: AMLODIPINE 5 MG TABLET 2.5 MG GT (08:20)
[2024-03-27] MEDS: FAMOTIDINE 20 MG TABLET GT ×2 (08:20→21:00)
[2024-03-27] MEDS: SENNOSIDES 8.6 MG TABLET GT ×2 (08:20→21:00)
[2024-03-27] MEDS: INSULIN GLARGINE 100 UNIT/ML INSULN.PEN 14 UNIT SC (17:08)
[2024-03-27] MEDS: ONDANSETRON HCL 4 MG TABLET GT (19:38)
[2024-03-27] MEDS: DOXAZOSIN 2 MG TABLET 4 MG GT (21:00)
[2024-03-28] VITALS (9 sets, daily range): BP systolic 106–133; BP diastolic 66–78; PULSE 65–79; RESP 16–20; TEMP 36.3–36.9; O2SAT 96–100
[2024-03-28] MEDS: IPRATROPIUM/ALBUTEROL 3 ML AMPUL.NEB INH ×3 (01:51→19:37)
[2024-03-28] MEDS: ERYTHROMYCIN ETHYLSUCCINATE 200 MG/5 ML ML 100 MG GT ×3 (05:18→21:05)
[2024-03-28] MEDS: AMLODIPINE 5 MG TABLET 2.5 MG GT (08:05)
[2024-03-28] MEDS: SENNOSIDES 8.6 MG TABLET GT ×2 (08:06→21:05)
[2024-03-28] MEDS: FUROSEMIDE 20 MG TABLET GT (08:06)
[2024-03-28] MEDS: FAMOTIDINE 20 MG TABLET GT ×2 (08:06→21:05)
[2024-03-28] MEDS: ONDANSETRON HCL 4 MG TABLET GT (13:42)
--- NOTE | 2024-03-28 16:30 | ESPR_ITS ---
Progress Note - SubAcute DIAGNOSIS (1) Aneurysmal subarachnoid hemorrhage: Status: Chronic (2) DM type 2, goal HbA1c < 9%: Status: Chronic (3) Chronic respiratory failure: Status: Chronic (4) Tracheostomy in place: Status: Chronic (5) PEG (percutaneous endoscopic gastrostomy) status: Status: Chronic (6) Essential (primary) hypertension: Status: Acute SUBJECTIVE Fever:: none Shortness of Breath:: none GI:: no complaints Pain:: none OBJECTIVE Most recent vital signs: Last Vital Signs Temp 98.3 F 03/28/24 12:00 Pulse 74 03/28/24 12:50 Resp 16 03/28/24 12:50 BP 106/66 03/28/24 12:00 Pulse Ox 98 03/28/24 12:50 O2 Del Method Blow-by 03/28/24 06:00 O2 Flow Rate 6 03/28/24 12:50 FiO2 28 03/28/24 12:50 Neurological:: alert (responds to simple commands, shakes hands with his left) Speech:: none Answers questions:: no Respiratory:: shallow breathing Cardiovascular: RRR Abdomen: soft and nontender Extremities:: deformities Decubitus:: improved Tracheostomy:: to blow by Feeding per:: G tube Complaints:: none ASSESSMENT & PLAN Assessment: Pt. has certainly been awake and eye tracking some, does extend his left hand when offered a hand shake Diagnosis and treatment reviewed. All else stable, pt fully dependent for care. I had a detailed converiisation with pt's about his status and prognostic outlooks and explained in detail all her questions to which she was thankful even though more saddened by the reality of his condition and unpromising expectations. He shows no improvement in his chronic significant neurological deficit.No new issues Plans to take him home on hold for the time at pt's 's request for lack of resources to take good care of him at home. Recently started on Erythromycin low dose for improving GI motiliity and seems to be working as emesis now has been very infrequent. This was discussed in IDT with pts daughter over the phone. 02-23-24 Bedside meeting with pt's present along with RN and respiratory therapist and all questions answered. Family reconsidering possibility of taking pt home. No decision finalized. Will help her in training if she so decides. No new issues. Comfort objective achieved. Plan: Current treatment as ongoing. . Family updated.
[2024-03-28] MEDS: INSULIN GLARGINE 100 UNIT/ML INSULN.PEN 14 UNIT SC (18:09)
[2024-03-29] VITALS (7 sets, daily range): BP systolic 101–120; BP diastolic 66–78; PULSE 61–82; RESP 16–20; TEMP 36.3–36.4; O2SAT 97–99
[2024-03-29] MEDS: IPRATROPIUM/ALBUTEROL 3 ML AMPUL.NEB INH ×4 (01:41→18:30)
[2024-03-29] MEDS: ERYTHROMYCIN ETHYLSUCCINATE 200 MG/5 ML ML 100 MG GT ×3 (05:18→20:13)
[2024-03-29] MEDS: FUROSEMIDE 20 MG TABLET GT (08:10)
[2024-03-29] MEDS: SENNOSIDES 8.6 MG TABLET GT ×2 (08:10→20:13)
[2024-03-29] MEDS: FAMOTIDINE 20 MG TABLET GT ×2 (08:10→20:13)
--- NOTE | 2024-03-29 15:35 | PC.SS ---
Resident seen by tank officer/Dr. Garces for routine toe nail trim, no new orders or recommendation to continue current care.
[2024-03-29] MEDS: INSULIN GLARGINE 100 UNIT/ML INSULN.PEN 14 UNIT SC (17:44)
[2024-03-29] MEDS: INSULIN REGULAR, HUMAN 100 UNIT/ML VIAL SC (17:44)
[2024-03-29] MEDS: DOXAZOSIN 2 MG TABLET 4 MG GT (20:13)
[2024-03-30] VITALS (8 sets, daily range): BP systolic 101–128; BP diastolic 57–76; PULSE 59–77; RESP 16–19; TEMP 36.1–36.6; O2SAT 95–100
[2024-03-30] MEDS: IPRATROPIUM/ALBUTEROL 3 ML AMPUL.NEB INH ×2 (01:32→18:20)
[2024-03-30] MEDS: ERYTHROMYCIN ETHYLSUCCINATE 200 MG/5 ML ML 100 MG GT ×3 (05:14→20:01)
[2024-03-30] MEDS: SENNOSIDES 8.6 MG TABLET GT ×2 (08:05→20:02)
[2024-03-30] MEDS: FAMOTIDINE 20 MG TABLET GT ×2 (08:05→20:02)
[2024-03-30] MEDS: FUROSEMIDE 20 MG TABLET GT (08:05)
[2024-03-30] MEDS: DEX/HYPRO/GLY ARTIFICAL TEARS 225 DROP/15 ML BTL BOTH EYES (08:05)
[2024-03-30] MEDS: ACETAMINOPHEN 325 MG TABLET 650 MG GT (16:45)
[2024-03-30] MEDS: ONDANSETRON HCL 4 MG TABLET GT (16:46)
[2024-03-30] MEDS: INSULIN GLARGINE 100 UNIT/ML INSULN.PEN 14 UNIT SC (17:45)
[2024-03-30] MEDS: DOXAZOSIN 2 MG TABLET 4 MG GT (20:01)
[2024-03-31] VITALS (8 sets, daily range): BP systolic 109–128; BP diastolic 67–77; PULSE 52–79; RESP 14–18; TEMP 35.9–36.6; O2SAT 97–99
[2024-03-31] MEDS: IPRATROPIUM/ALBUTEROL 3 ML AMPUL.NEB INH ×4 (00:45→18:48)
[2024-03-31] MEDS: ERYTHROMYCIN ETHYLSUCCINATE 200 MG/5 ML ML 100 MG GT ×3 (05:05→20:19)
[2024-03-31] MEDS: FAMOTIDINE 20 MG TABLET GT ×2 (08:37→20:20)
[2024-03-31] MEDS: DEX/HYPRO/GLY ARTIFICAL TEARS 225 DROP/15 ML BTL BOTH EYES (08:37)
[2024-03-31] MEDS: FUROSEMIDE 20 MG TABLET GT (08:37)
[2024-03-31] MEDS: SENNOSIDES 8.6 MG TABLET GT ×2 (08:38→20:20)
[2024-03-31] MEDS: INSULIN GLARGINE 100 UNIT/ML INSULN.PEN 14 UNIT SC (17:19)
[2024-03-31] MEDS: DOXAZOSIN 2 MG TABLET 4 MG GT (20:20)
[2024-04-01] VITALS (9 sets, daily range): BP systolic 95–120; BP diastolic 62–73; PULSE 56–78; RESP 16–18; TEMP 36.1–36.3; O2SAT 97–100
[2024-04-01] MEDS: IPRATROPIUM/ALBUTEROL 3 ML AMPUL.NEB INH ×4 (01:03→18:50)
[2024-04-01] MEDS: ERYTHROMYCIN ETHYLSUCCINATE 200 MG/5 ML ML 100 MG GT ×3 (05:42→21:16)
[2024-04-01] MEDS: DEX/HYPRO/GLY ARTIFICAL TEARS 225 DROP/15 ML BTL BOTH EYES (09:58)
[2024-04-01] MEDS: FUROSEMIDE 20 MG TABLET GT (09:58)
[2024-04-01] MEDS: SENNOSIDES 8.6 MG TABLET GT ×2 (09:58→20:19)
[2024-04-01] MEDS: FAMOTIDINE 20 MG TABLET GT ×2 (09:58→20:19)
[2024-04-01] MEDS: ONDANSETRON HCL 4 MG TABLET GT ×2 (09:59→21:23)
[2024-04-01] MEDS: ACETAMINOPHEN 325 MG TABLET 650 MG GT (09:59)
[2024-04-01] MEDS: INSULIN GLARGINE 100 UNIT/ML INSULN.PEN 14 UNIT SC (17:26)
--- NOTE | 2024-04-01 17:49 | ESPR_ITS ---
Progress Note - SubAcute DIAGNOSIS (1) Aneurysmal subarachnoid hemorrhage: Status: Chronic (2) DM type 2, goal HbA1c < 9%: Status: Chronic (3) Chronic respiratory failure: Status: Chronic (4) Tracheostomy in place: Status: Chronic (5) PEG (percutaneous endoscopic gastrostomy) status: Status: Chronic (6) Essential (primary) hypertension: Status: Acute SUBJECTIVE Fever:: none Shortness of Breath:: none GI:: no complaints Pain:: none OBJECTIVE Most recent vital signs: Last Vital Signs Temp 97.3 F 04/01/24 17:36 Pulse 72 04/01/24 17:36 Resp 18 04/01/24 17:36 BP 115/73 04/01/24 17:36 Pulse Ox 98 04/01/24 17:36 O2 Del Method Blow-by 04/01/24 17:36 O2 Flow Rate 6 04/01/24 17:36 FiO2 28 04/01/24 17:36 Neurological:: alert (responds to simple commands, shakes hands with his left) Speech:: none Answers questions:: no Respiratory:: shallow breathing Cardiovascular: RRR Abdomen: soft and nontender Extremities:: deformities Decubitus:: improved Tracheostomy:: to blow by Feeding per:: G tube Complaints:: none ASSESSMENT & PLAN Assessment: Pt. has certainly been awake and eye tracking some, does extend his left hand when offered a hand shake Diagnosis and treatment reviewed. All else stable, pt fully dependent for care. I had a detailed converiisation with pt's about his status and prognostic outlooks and explained in detail all her questions to which she was thankful even though more saddened by the reality of his condition and unpromising expectations. He shows no improvement in his chronic significant neurological deficit.No new issues Plans to take him home on hold for the time at pt's 's request for lack of resources to take good care of him at home. Recently started on Erythromycin low dose for improving GI motiliity and seems to be working as emesis now has been very infrequent. This was discussed in IDT with pts daughter over the phone. 02-23-24 Bedside meeting with pt's present along with RN and respiratory therapist and all questions answered. Family reconsidering possibility of taking pt home. No decision finalized. Will help her in training if she so decides. No new issues. Comfort objective achieved. Plan: Current treatment as ongoing. . Family updated.
[2024-04-01] MEDS: DOXAZOSIN 2 MG TABLET 4 MG GT (20:19)
[2024-04-02] VITALS (8 sets, daily range): BP systolic 120–146; BP diastolic 64–88; PULSE 65–85; RESP 16–21; TEMP 36.1–36.4; O2SAT 98–99
[2024-04-02] MEDS: IPRATROPIUM/ALBUTEROL 3 ML AMPUL.NEB INH ×4 (01:00→19:10)
[2024-04-02] MEDS: ERYTHROMYCIN ETHYLSUCCINATE 200 MG/5 ML ML 100 MG GT ×2 (05:09→21:19)
[2024-04-02] MEDS: AMLODIPINE 5 MG TABLET 2.5 MG GT (08:01)
[2024-04-02] MEDS: DEX/HYPRO/GLY ARTIFICAL TEARS 225 DROP/15 ML BTL BOTH EYES (08:02)
[2024-04-02] MEDS: FUROSEMIDE 20 MG TABLET GT (08:02)
[2024-04-02] MEDS: FAMOTIDINE 20 MG TABLET GT ×2 (08:02→20:26)
[2024-04-02] MEDS: SENNOSIDES 8.6 MG TABLET GT ×2 (08:02→20:28)
--- NOTE | 2024-04-02 16:04 | PC.SS ---
This SSD spoke with SHANEKA Saleem regarding her request for DC to home. This SSD asked how the training was going, Harper expressed her fear with resident trach. Staff has reported training is not going well as Harper has stated she has an injured back which hinders her from doing different task of living. Staff stated Harper comes in three days a week and does not stay long, she travels to [place] for back treatment and her grown children do not come in too often to visit or for any training. This SSD spoke with Harper about those concerns, this SSD asked for a meeting with Harper and her children to speak with MD and IDT about the entire care regimen of resident. Harper stated her children work all week long and are unable to come in for training or meetings during the day. Harper said she would speak with her family more in depth about the care resident is currently receiving and what they can all provide for him at home. Harper hopes to be able to take resident home in April. This SSD will continue to follow up with Harper about DC planning.
--- NOTE | 2024-04-02 16:29 | PC.SS ---
This SSD spoke with Harper Ferreira who stated she spoke with her children via telephone, family is concerned the care may be too much to handle at home. Family would like resident to be moved closer to home in [place]. Per request of Harper this SSD will send referral to [facility]. RP will be kept updated of progress or any updates. Charge nurse made aware.
[2024-04-02] MEDS: ACETAMINOPHEN 325 MG TABLET 650 MG GT (17:11)
[2024-04-02] MEDS: INSULIN GLARGINE 100 UNIT/ML INSULN.PEN 14 UNIT SC (17:16)
[2024-04-02] MEDS: DOXAZOSIN 2 MG TABLET 4 MG GT (20:26)
[2024-04-03] VITALS (9 sets, daily range): BP systolic 100–148; BP diastolic 64–88; PULSE 66–82; RESP 16–20; TEMP 36.2–36.9; O2SAT 97–100
[2024-04-03] MEDS: IPRATROPIUM/ALBUTEROL 3 ML AMPUL.NEB INH ×4 (01:15→18:10)
[2024-04-03] MEDS: ERYTHROMYCIN ETHYLSUCCINATE 200 MG/5 ML ML 100 MG GT ×3 (05:27→21:04)
[2024-04-03] MEDS: AMLODIPINE 5 MG TABLET 2.5 MG GT (08:17)
[2024-04-03] MEDS: FAMOTIDINE 20 MG TABLET GT ×2 (08:18→20:56)
[2024-04-03] MEDS: SENNOSIDES 8.6 MG TABLET GT ×2 (08:18→20:56)
[2024-04-03] MEDS: FUROSEMIDE 20 MG TABLET GT (08:18)
[2024-04-03] MEDS: DEX/HYPRO/GLY ARTIFICAL TEARS 225 DROP/15 ML BTL BOTH EYES (08:18)
[2024-04-03] MEDS: INSULIN GLARGINE 100 UNIT/ML INSULN.PEN 14 UNIT SC (17:37)
[2024-04-04] VITALS (9 sets, daily range): BP systolic 108–152; BP diastolic 66–80; PULSE 65–84; RESP 18–20; TEMP 36.2–36.3; O2SAT 98–100
[2024-04-04] MEDS: IPRATROPIUM/ALBUTEROL 3 ML AMPUL.NEB INH ×4 (01:20→18:00)
[2024-04-04] MEDS: ERYTHROMYCIN ETHYLSUCCINATE 200 MG/5 ML ML 100 MG GT ×3 (05:40→21:06)
[2024-04-04] MEDS: FAMOTIDINE 20 MG TABLET GT ×2 (08:10→21:05)
[2024-04-04] MEDS: FUROSEMIDE 20 MG TABLET GT (08:10)
[2024-04-04] MEDS: DEX/HYPRO/GLY ARTIFICAL TEARS 225 DROP/15 ML BTL BOTH EYES (08:10)
[2024-04-04] MEDS: SENNOSIDES 8.6 MG TABLET GT ×2 (08:10→21:06)
[2024-04-04] MEDS: INSULIN GLARGINE 100 UNIT/ML INSULN.PEN 14 UNIT SC (17:04)
[2024-04-04] MEDS: ONDANSETRON HCL 4 MG TABLET GT (19:50)
[2024-04-04] MEDS: DOXAZOSIN 2 MG TABLET 4 MG GT (21:05)
[2024-04-04] MEDS: MAG HYDROX/ALUMINUM HYD/SIMETH 355 ML BTL 30 ML PO (21:54)
[2024-04-05] VITALS: BP 122/82; PULSE 75; RESP 18; TEMP 36.3
[2024-04-05 01:00] VITALS: PULSE 75; RESP 18; O2SAT 99
[2024-04-05] MEDS: IPRATROPIUM/ALBUTEROL 3 ML AMPUL.NEB INH ×2 (01:00→19:10)
[2024-04-05] MEDS: ONDANSETRON HCL 4 MG TABLET GT (02:44)
[2024-04-05] MEDS: ACETAMINOPHEN 325 MG TABLET 650 MG GT ×2 (02:44→15:32)
--- NOTE | 2024-04-05 03:18 | PC.RT ---
Rt called to room stating pt is breathing different. On arrival, pt appears to have supraclavicle retractions. Pt is awake and alert. Spo2 98%. RT had already received 0100 breathing tx. RT lavaged x 2 and got a mucus plug with no changes in breathing. Pt had a routine trach change on 04/04 on day shift. ARLYN Nolan made ER aware and will transfer pt.
--- NOTE | 2024-04-05 03:57 | PC.NURSE ---
RESIDENT TRANSFERRED TO ER VIA BED FOR FURTHER EVALUATION. IGNACIO MADE OF AWARE OF TRANSFER. RESIDENT BREATHING SLIGHTLY LABORED WITH GRUNTING SOUND WITH USE OF ACCESSORY MUSCLES. 02 SAT AT THIS TIME 98%.
--- NOTE | 2024-04-05 14:20 | PC.NURSE ---
Received a report from ER and they will be sending him back . As per report, resident has Bronchitis. Dexamethasone 6 mg tablet and epinephrine respiratory drip treatment were given at ER and no antibiotic was given.
--- NOTE | 2024-04-05 14:39 | PC.NURSE ---
Addendum entered by Dana Poole RN 04/05/24 14:52: Dr Diaz was notified. Original Note: Resident came back from ER via bed with RT, RN and resident's . No new orders received. Alert and awake. Respiration even and unlabored. No stridor or grunting noted. No s/s of pain or discomfort.
--- NOTE | 2024-04-05 14:54 | PC.NURSE ---
V/S taken as follows: 138/71, 77, 24,97.0, 98% at 28% at 6L.
--- NOTE | 2024-04-05 15:09 | PC.NURSE ---
Resident noted with abrasions to right foot when resident came back from ER. New treatment received to cleanse with wound cleanser and apply triple antibiotic ointment
[2024-04-05 15:56] VITALS: PULSE 89; RESP 18; O2SAT 99
[2024-04-05] MEDS: INSULIN GLARGINE 100 UNIT/ML INSULN.PEN 14 UNIT SC (17:59)
[2024-04-05 18:00] VITALS: BP 138/81; PULSE 75; RESP 17; TEMP 36.4; O2SAT 98
[2024-04-05 19:11] VITALS: PULSE 65; PULSE 66; RESP 18; O2SAT 96; O2SAT 98
[2024-04-05] MEDS: FAMOTIDINE 20 MG TABLET GT (20:30)
[2024-04-05] MEDS: ERYTHROMYCIN ETHYLSUCCINATE 200 MG/5 ML ML 100 MG GT (20:30)
[2024-04-05] MEDS: DOXAZOSIN 2 MG TABLET 4 MG GT (20:30)
[2024-04-05] MEDS: SENNOSIDES 8.6 MG TABLET GT (20:30)
--- NOTE | 2024-04-05 22:05 | ESPR_ITS ---
Progress Note - SubAcute DIAGNOSIS (1) Aneurysmal subarachnoid hemorrhage: Status: Chronic (2) DM type 2, goal HbA1c < 9%: Status: Chronic (3) Chronic respiratory failure: Status: Chronic (4) Tracheostomy in place: Status: Chronic (5) PEG (percutaneous endoscopic gastrostomy) status: Status: Chronic (6) Essential (primary) hypertension: Status: Acute SUBJECTIVE Fever:: none Shortness of Breath:: none GI:: no complaints Pain:: none OBJECTIVE Most recent vital signs: Last Vital Signs Temp 97.5 F 04/05/24 18:00 Pulse 66 04/05/24 19:11 Resp 18 04/05/24 19:11 BP 138/81 H 04/05/24 18:00 Pulse Ox 98 04/05/24 19:11 O2 Del Method Blow-by 04/05/24 18:00 O2 Flow Rate 8 04/05/24 19:11 FiO2 28 04/05/24 19:11 Neurological:: alert (responds to simple commands, shakes hands with his left) Speech:: none Answers questions:: no Respiratory:: shallow breathing Cardiovascular: RRR Abdomen: soft and nontender Extremities:: deformities Decubitus:: improved Tracheostomy:: to blow by Feeding per:: G tube Complaints:: none ASSESSMENT & PLAN Assessment: Pt. has certainly been awake and eye tracking some, does extend his left hand when offered a hand shake Diagnosis and treatment reviewed. All else stable, pt fully dependent for care. I had a detailed converiisation with pt's about his status and prognostic outlooks and explained in detail all her questions to which she was thankful even though more saddened by the reality of his condition and unpromising expectations. He shows no improvement in his chronic significant neurological deficit.No new issues Plans to take him home on hold for the time at pt's 's request for lack of resources to take good care of him at home. Recently started on Erythromycin low dose for improving GI motiliity and seems to be working as emesis now has been very infrequent. This was discussed in IDT with pts daughter over the phone. 02-23-24 Bedside meeting with pt's present along with RN and respiratory therapist and all questions answered. Family reconsidering possibility of taking pt home. No decision finalized. Will help her in training if she so decides. Pt was in the ER in am being stabilized hemodynamically before anticipated return to [facility] later. Comfort objective achieved. Plan: Current treatment as ongoing. . Family updated.
[2024-04-05 23:26] VITALS: BP 100/64; PULSE 78; RESP 16; TEMP 36.4
[2024-04-06 00:43] VITALS: PULSE 65; PULSE 67; RESP 16; RESP 18; O2SAT 100; O2SAT 99
[2024-04-06] MEDS: IPRATROPIUM/ALBUTEROL 3 ML AMPUL.NEB INH ×4 (00:43→19:35)
[2024-04-06] MEDS: ERYTHROMYCIN ETHYLSUCCINATE 200 MG/5 ML ML 100 MG GT ×3 (05:08→20:38)
[2024-04-06 06:00] VITALS: BP 96/60; PULSE 83; RESP 16; TEMP 36.3; O2SAT 99
[2024-04-06 07:27] VITALS: PULSE 64; PULSE 66; RESP 17; RESP 18; O2SAT 95; O2SAT 99
[2024-04-06 09:05] VITALS: BP 110/65; PULSE 77
[2024-04-06] MEDS: DEX/HYPRO/GLY ARTIFICAL TEARS 225 DROP/15 ML BTL BOTH EYES (09:05)
[2024-04-06] MEDS: AMLODIPINE 5 MG TABLET 2.5 MG GT (09:05)
[2024-04-06] MEDS: FAMOTIDINE 20 MG TABLET GT ×2 (09:05→20:38)
[2024-04-06] MEDS: FUROSEMIDE 20 MG TABLET GT (09:05)
[2024-04-06] MEDS: SENNOSIDES 8.6 MG TABLET GT ×2 (09:06→20:38)
[2024-04-06 12:26] VITALS: PULSE 67; RESP 17; O2SAT 99
[2024-04-06] MEDS: INSULIN GLARGINE 100 UNIT/ML INSULN.PEN 14 UNIT SC (17:35)
[2024-04-06 19:35] VITALS: PULSE 78; RESP 20; O2SAT 100
[2024-04-06] MEDS: ACETAMINOPHEN 325 MG TABLET 650 MG GT (20:30)
[2024-04-06] MEDS: DOXAZOSIN 2 MG TABLET 4 MG GT (20:38)
[2024-04-07] VITALS (9 sets, daily range): BP systolic 110–135; BP diastolic 64–82; PULSE 63–78; RESP 18–20; TEMP 36.2–36.5; O2SAT 98–100
[2024-04-07] MEDS: IPRATROPIUM/ALBUTEROL 3 ML AMPUL.NEB INH ×4 (00:44→18:17)
[2024-04-07] MEDS: ERYTHROMYCIN ETHYLSUCCINATE 200 MG/5 ML ML 100 MG GT ×3 (05:50→20:30)
[2024-04-07] MEDS: AMLODIPINE 5 MG TABLET 2.5 MG GT (08:00)
[2024-04-07] MEDS: FUROSEMIDE 20 MG TABLET GT (08:01)
[2024-04-07] MEDS: FAMOTIDINE 20 MG TABLET GT ×2 (08:01→20:30)
[2024-04-07] MEDS: DEX/HYPRO/GLY ARTIFICAL TEARS 225 DROP/15 ML BTL BOTH EYES (08:01)
[2024-04-07] MEDS: SENNOSIDES 8.6 MG TABLET GT ×2 (08:01→20:30)
--- NOTE | 2024-04-07 13:35 | ESPR_ITS ---
Progress Note - SubAcute DIAGNOSIS (1) Aneurysmal subarachnoid hemorrhage: Status: Chronic (2) DM type 2, goal HbA1c < 9%: Status: Chronic (3) Chronic respiratory failure: Status: Chronic (4) Tracheostomy in place: Status: Chronic (5) PEG (percutaneous endoscopic gastrostomy) status: Status: Chronic (6) Essential (primary) hypertension: Status: Acute SUBJECTIVE Fever:: none Shortness of Breath:: none GI:: no complaints Pain:: none OBJECTIVE Most recent vital signs: Last Vital Signs Temp 97.7 F 04/11/24 11:47 Pulse 97 04/11/24 13:05 Resp 16 04/11/24 13:05 BP 102/68 04/11/24 11:47 Pulse Ox 98 04/11/24 13:05 O2 Del Method Blow-by 04/10/24 06:00 O2 Flow Rate 6 04/11/24 13:05 FiO2 28 04/11/24 13:05 Neurological:: alert (responds to simple commands, shakes hands with his left) Speech:: none Answers questions:: no Respiratory:: shallow breathing Cardiovascular: RRR Abdomen: soft and nontender Extremities:: deformities Decubitus:: improved Tracheostomy:: to blow by Feeding per:: G tube Complaints:: none ASSESSMENT & PLAN Assessment: Pt. has certainly been awake and eye tracking some, does extend his left hand when offered a hand shake Diagnosis and treatment reviewed. All else stable, pt fully dependent for care. I had a detailed converiisation with pt's about his status and prognostic outlooks and explained in detail all her questions to which she was thankful even though more saddened by the reality of his condition and unpromising expectations. He shows no improvement in his chronic significant neurological deficit.No new issues Plans to take him home on hold for the time at pt's 's request for lack of resources to take good care of him at home. Recently started on Erythromycin low dose for improving GI motiliity and seems to be working as emesis now has been very infrequent. This was discussed in IDT with pts daughter over the phone. 02-23-24 Bedside meeting with pt's present along with RN and respiratory therapist and all questions answered. Family reconsidering possibility of taking pt home. No decision finalized. Will help her in training if she so decides. Pt was in the ER in am being stabilized hemodynamically before anticipated return to [facility] later. Comfort objective achieved. Plan: Current treatment as ongoing. . Family updated.
--- NOTE | 2024-04-07 15:21 | PC.SS ---
Referral sent via [facility] to [facility] per request of SHANEKA Ferreira. Harper will not be taking resident home due to heavy and complicated care regimen, she would like resident moved to a subacute closer to home and family.
--- NOTE | 2024-04-07 15:37 | PC.SS ---
Resident was sent out to ED for evaluation on 04/05/24 RP Harper notified of transfer. This SSD spoke with Harper who stated she was called and notified of transfer. This SSD gave Harper a copy of transfer letter in person on 04/07/24 no questions or concerns.
[2024-04-07] MEDS: ACETAMINOPHEN 325 MG TABLET 650 MG GT (16:38)
[2024-04-07] MEDS: INSULIN GLARGINE 100 UNIT/ML INSULN.PEN 14 UNIT SC (17:23)
[2024-04-07] MEDS: DOXAZOSIN 2 MG TABLET 4 MG GT (20:30)
[2024-04-08] VITALS (8 sets, daily range): BP systolic 108–134; BP diastolic 60–85; PULSE 65–74; RESP 18–20; TEMP 36.1–36.4; O2SAT 96–100
[2024-04-08] MEDS: ERYTHROMYCIN ETHYLSUCCINATE 200 MG/5 ML ML 100 MG GT ×3 (05:36→21:19)
[2024-04-08] MEDS: IPRATROPIUM/ALBUTEROL 3 ML AMPUL.NEB INH ×3 (06:10→16:25)
[2024-04-08] MEDS: AMLODIPINE 5 MG TABLET 2.5 MG GT (08:01)
[2024-04-08] MEDS: DEX/HYPRO/GLY ARTIFICAL TEARS 225 DROP/15 ML BTL BOTH EYES (08:02)
[2024-04-08] MEDS: FAMOTIDINE 20 MG TABLET GT ×2 (08:02→20:19)
[2024-04-08] MEDS: FUROSEMIDE 20 MG TABLET GT (08:02)
[2024-04-08] MEDS: SENNOSIDES 8.6 MG TABLET GT ×2 (08:03→20:19)
[2024-04-08] MEDS: ONDANSETRON HCL 4 MG TABLET GT (15:33)
--- NOTE | 2024-04-08 16:22 | PC.SS ---
Room visit: Resident is laying in bed with head of the bed elevated with call light properly placed with no signs of distress. Resident remains on blow by with trach in place and GT for medication and nutrition. Resident will remain in current care and will continue to have all subacute care needs met by staff. This SSD will continue to make daily contact with resident and monitor for changes in mood and behavior.
[2024-04-08] MEDS: INSULIN GLARGINE 100 UNIT/ML INSULN.PEN 14 UNIT SC (17:18)
[2024-04-08] MEDS: DOXAZOSIN 2 MG TABLET 4 MG GT (20:19)
[2024-04-09] VITALS (9 sets, daily range): BP systolic 108–140; BP diastolic 67–77; PULSE 62–83; RESP 18–22; TEMP 36.3–36.5; O2SAT 95–100
[2024-04-09] MEDS: IPRATROPIUM/ALBUTEROL 3 ML AMPUL.NEB INH ×4 (01:07→17:56)
[2024-04-09] MEDS: ERYTHROMYCIN ETHYLSUCCINATE 200 MG/5 ML ML 100 MG GT ×3 (05:27→21:41)
[2024-04-09] MEDS: ONDANSETRON HCL 4 MG TABLET GT (07:04)
[2024-04-09] MEDS: ACETAMINOPHEN 325 MG TABLET 650 MG GT ×2 (07:04→20:15)
[2024-04-09] MEDS: SENNOSIDES 8.6 MG TABLET GT ×2 (09:10→20:15)
[2024-04-09] MEDS: DEX/HYPRO/GLY ARTIFICAL TEARS 225 DROP/15 ML BTL BOTH EYES (09:10)
[2024-04-09] MEDS: FAMOTIDINE 20 MG TABLET GT ×2 (09:10→20:14)
[2024-04-09] MEDS: FUROSEMIDE 20 MG TABLET GT (09:10)
--- NOTE | 2024-04-09 14:33 | PC.SS ---
This SSD met with resident spouse who stated she would like this SSD not to submit referral to [facility]. This SSD informed referral had been sent via [facility] as of FridayApril 07. Harper stated she feels this will be a long wait time to get him in to that facility and would rather take resident home. This SSD spoke with Harper regarding the heavy and complicated care regimen resident requires. Harper was emotional and stated she is aware and would like to proceed in taking him home. This SSD will inform MD of Harper change of plan for DC. This SSD will assist with DC planning as appropriate.
--- NOTE | 2024-04-09 17:31 | PC.NURSE ---
Resident awake, alert watching TV programs and taking naps throughout this shift. in room visiting. No s/ of any distress. Call light in reach will continue to monitor.
[2024-04-09] MEDS: INSULIN GLARGINE 100 UNIT/ML INSULN.PEN 14 UNIT SC (17:39)
[2024-04-09] MEDS: DOXAZOSIN 2 MG TABLET 4 MG GT (20:14)
[2024-04-10] VITALS (8 sets, daily range): BP systolic 110–1218; BP diastolic 57–77; PULSE 66–80; RESP 18–24; TEMP 36.2–36.6; O2SAT 96–100
[2024-04-10] MEDS: IPRATROPIUM/ALBUTEROL 3 ML AMPUL.NEB INH ×4 (00:33→18:05)
[2024-04-10] MEDS: ERYTHROMYCIN ETHYLSUCCINATE 200 MG/5 ML ML 100 MG GT ×3 (05:32→21:19)
[2024-04-10] MEDS: SENNOSIDES 8.6 MG TABLET GT ×2 (09:06→20:10)
[2024-04-10] MEDS: FUROSEMIDE 20 MG TABLET GT (09:06)
[2024-04-10] MEDS: FAMOTIDINE 20 MG TABLET GT ×2 (09:06→20:10)
[2024-04-10] MEDS: DEX/HYPRO/GLY ARTIFICAL TEARS 225 DROP/15 ML BTL BOTH EYES (09:06)
[2024-04-10] MEDS: AMLODIPINE 5 MG TABLET 2.5 MG GT (09:06)
[2024-04-10] MEDS: ONDANSETRON HCL 4 MG TABLET GT ×2 (09:07→20:12)
[2024-04-10] MEDS: ACETAMINOPHEN 325 MG TABLET 650 MG GT (09:07)
[2024-04-10] MEDS: INSULIN GLARGINE 100 UNIT/ML INSULN.PEN 14 UNIT SC (17:08)
[2024-04-10] MEDS: DOXAZOSIN 2 MG TABLET 4 MG GT (20:08)
[2024-04-11] VITALS (9 sets, daily range): BP systolic 97–145; BP diastolic 59–75; PULSE 62–97; RESP 16–24; TEMP 36.3–36.6; O2SAT 94–98
[2024-04-11] MEDS: IPRATROPIUM/ALBUTEROL 3 ML AMPUL.NEB INH ×4 (00:40→16:58)
--- NOTE | 2024-04-11 04:20 | PC.NURSE ---
Psychosocial monitoring ongoing. Alert, no change in mood or behaviors noted.
[2024-04-11] MEDS: ERYTHROMYCIN ETHYLSUCCINATE 200 MG/5 ML ML 100 MG GT ×3 (05:34→21:28)
[2024-04-11] MEDS: INSULIN REGULAR, HUMAN 100 UNIT/ML VIAL SC (05:34)
[2024-04-11] MEDS: AMLODIPINE 5 MG TABLET 2.5 MG GT (08:41)
[2024-04-11] MEDS: SENNOSIDES 8.6 MG TABLET GT (08:42)
[2024-04-11] MEDS: DEX/HYPRO/GLY ARTIFICAL TEARS 225 DROP/15 ML BTL BOTH EYES (08:42)
[2024-04-11] MEDS: FUROSEMIDE 20 MG TABLET GT (08:42)
[2024-04-11] MEDS: FAMOTIDINE 20 MG TABLET GT ×2 (08:42→20:12)
[2024-04-11] MEDS: ACETAMINOPHEN 325 MG TABLET 650 MG GT (08:43)
[2024-04-11] MEDS: ONDANSETRON HCL 4 MG TABLET GT (08:44)
--- NOTE | 2024-04-11 11:00 | PC.RT ---
RT called to assess pt for WOB, order put in per md to change trach tube size for pt comfort/to alleviate WOB, pt changed from Portex 7.0 to Shiley XLT 6.0 with no issues. RT made RN aware before change that backup trach tube of pt's new size are not currently in stock and will need to be ordered. Pt's previous trach tube size in trach kit at head of bed.
[2024-04-11] MEDS: guaiFENesin Liq 100 MG/5 ML LIQUID 300 MG GT (11:15)
--- NOTE | 2024-04-11 11:44 | PC.NURSE ---
Resident has bee noted having trouble breathing and making loudly noise with his mouth for several days. Night nurse An reported to functional tester typewriters . Increased RR noted during this episodes of horsening. RT L[place] suggested days ago resident would benefit from having a longer tip trach. Parliamentary Counsel notified . Agreed for the trach to be replaced for same size but longer tip if need be and to perform X ray afterwards for trach placement. Today trach was replaced by Verito FAGAN due to resident having respiratory issues.Resident tolerated procedure well. Will order xRay to check for placement.
--- NOTE | 2024-04-11 11:52 | PC.NURSE ---
Psychosocial monitoring ongoing. Resident alert no change in mood or behavior.
--- NOTE | 2024-04-11 11:56 | XR_ITS ---
Examination: AP chest single view Technique one AP portable semiupright chest single view Exam date and time: April 11, 2024 1302 hrs. Comparison April 05, 2024 Indications: Reposition tracheostomy tube Impression: Tracheostomy tube tip 4.4 cm above chris Moderate enlargement left ventricle Mild vascular congestion No pneumothorax Atelectasis versus mild pneumonia right base Impression: Tracheostomy tube tip 4.4 cm above chris Atelectasis versus pneumonia right base
[2024-04-11] MEDS: INSULIN GLARGINE 100 UNIT/ML INSULN.PEN 14 UNIT SC (17:24)
[2024-04-11] MEDS: DOXAZOSIN 2 MG TABLET 4 MG GT (20:12)
[2024-04-12] VITALS (9 sets, daily range): BP systolic 96–114; BP diastolic 58–70; PULSE 66–96; RESP 16–24; TEMP 36.3–36.6; O2SAT 97–99
[2024-04-12] MEDS: IPRATROPIUM/ALBUTEROL 3 ML AMPUL.NEB INH ×4 (01:31→16:41)
[2024-04-12] MEDS: ERYTHROMYCIN ETHYLSUCCINATE 200 MG/5 ML ML 100 MG GT ×3 (05:35→21:30)
[2024-04-12] MEDS: ACETAMINOPHEN 325 MG TABLET 650 MG GT (09:11)
[2024-04-12] MEDS: FUROSEMIDE 20 MG TABLET GT (09:13)
[2024-04-12] MEDS: DEX/HYPRO/GLY ARTIFICAL TEARS 225 DROP/15 ML BTL BOTH EYES (09:13)
[2024-04-12] MEDS: FAMOTIDINE 20 MG TABLET GT ×2 (09:13→20:16)
[2024-04-12] MEDS: SENNOSIDES 8.6 MG TABLET GT ×2 (09:13→20:17)
--- NOTE | 2024-04-12 13:15 | ESPR_ITS ---
Progress Note - SubAcute DIAGNOSIS (1) Aneurysmal subarachnoid hemorrhage: Status: Chronic (2) DM type 2, goal HbA1c < 9%: Status: Chronic (3) Chronic respiratory failure: Status: Chronic (4) Tracheostomy in place: Status: Chronic (5) PEG (percutaneous endoscopic gastrostomy) status: Status: Chronic (6) Essential (primary) hypertension: Status: Acute SUBJECTIVE Fever:: none Shortness of Breath:: none GI:: no complaints Pain:: none OBJECTIVE Most recent vital signs: Last Vital Signs Temp 97.7 F 04/16/24 18:00 Pulse 74 04/16/24 19:28 Resp 18 04/16/24 19:28 BP 128/80 04/16/24 18:00 Pulse Ox 99 04/16/24 19:28 O2 Del Method Blow-by 04/16/24 18:00 O2 Flow Rate 6 04/16/24 19:28 FiO2 28 04/16/24 19:28 Neurological:: alert (responds to simple commands, shakes hands with his left) Speech:: none Answers questions:: no Respiratory:: shallow breathing Cardiovascular: RRR Abdomen: soft and nontender Extremities:: deformities Decubitus:: improved Tracheostomy:: to blow by Feeding per:: G tube Complaints:: none ASSESSMENT & PLAN Assessment: Pt. has certainly been awake and eye tracking some, does extend his left hand when offered a hand shake Diagnosis and treatment reviewed. All else stable, pt fully dependent for care. I had a detailed converiisation with pt's about his status and prognostic outlooks and explained in detail all her questions to which she was thankful even though more saddened by the reality of his condition and unpromising expectations. He shows no improvement in his chronic significant neurological deficit.No new issues Plans to take him home on hold for the time at pt's 's request for lack of resources to take good care of him at home. Recently started on Erythromycin low dose for improving GI motiliity and seems to be working as emesis now has been very infrequent. This was discussed in IDT with pts daughter over the phone. 02-23-24 Bedside meeting with pt's present along with RN and respiratory therapist and all questions answered. Family reconsidering possibility of taking pt home. No decision finalized. Will help her in training if she so decides. Pt was in the ER in am being stabilized hemodynamically before anticipated return to [facility] later. Comfort objective achieved. Plan: Current treatment as ongoing. . Family updated.
[2024-04-12] MEDS: ONDANSETRON HCL 4 MG TABLET GT (13:50)
[2024-04-12] MEDS: INSULIN REGULAR, HUMAN 100 UNIT/ML VIAL SC (17:17)
[2024-04-12] MEDS: INSULIN GLARGINE 100 UNIT/ML INSULN.PEN 14 UNIT SC (17:18)
--- NOTE | 2024-04-12 18:37 | PC.NURSE ---
Late entry for 04/11/24 at 1530- Psychosocial monitoring. No changes this shift. No s/s of distress noted. Call light within reach. Will continue with current plan of care.
--- NOTE | 2024-04-12 20:26 | PC.NURSE ---
Notified Dr Diaz regarding chest x-ray results, no new orders at this time.
[2024-04-13] VITALS (7 sets, daily range): BP systolic 121–130; BP diastolic 66–81; PULSE 62–102; RESP 16–18; TEMP 36.2–36.8; O2SAT 97–100
[2024-04-13] MEDS: IPRATROPIUM/ALBUTEROL 3 ML AMPUL.NEB INH ×4 (00:27→16:30)
[2024-04-13] MEDS: ERYTHROMYCIN ETHYLSUCCINATE 200 MG/5 ML ML 100 MG GT ×3 (05:20→22:10)
[2024-04-13] MEDS: AMLODIPINE 5 MG TABLET 2.5 MG GT (09:33)
[2024-04-13] MEDS: DEX/HYPRO/GLY ARTIFICAL TEARS 225 DROP/15 ML BTL BOTH EYES (09:35)
[2024-04-13] MEDS: FAMOTIDINE 20 MG TABLET GT ×2 (09:35→21:10)
[2024-04-13] MEDS: SENNOSIDES 8.6 MG TABLET GT ×2 (09:35→21:11)
[2024-04-13] MEDS: FUROSEMIDE 20 MG TABLET GT (09:35)
[2024-04-13] MEDS: INSULIN GLARGINE 100 UNIT/ML INSULN.PEN 14 UNIT SC (17:34)
[2024-04-13] MEDS: DOXAZOSIN 2 MG TABLET 4 MG GT (21:14)
[2024-04-14] VITALS (9 sets, daily range): BP systolic 106–130; BP diastolic 67–80; PULSE 71–82; RESP 17–18; TEMP 36.3–36.6; O2SAT 94–100
[2024-04-14] MEDS: IPRATROPIUM/ALBUTEROL 3 ML AMPUL.NEB INH ×4 (01:07→19:45)
[2024-04-14] MEDS: ERYTHROMYCIN ETHYLSUCCINATE 200 MG/5 ML ML 100 MG GT ×3 (05:58→22:00)
[2024-04-14] MEDS: DEX/HYPRO/GLY ARTIFICAL TEARS 225 DROP/15 ML BTL BOTH EYES (08:16)
[2024-04-14] MEDS: AMLODIPINE 5 MG TABLET 2.5 MG GT (08:16)
[2024-04-14] MEDS: SENNOSIDES 8.6 MG TABLET GT ×2 (08:17→22:00)
[2024-04-14] MEDS: FUROSEMIDE 20 MG TABLET GT (08:17)
[2024-04-14] MEDS: FAMOTIDINE 20 MG TABLET GT ×2 (08:17→22:00)
[2024-04-14] MEDS: INSULIN GLARGINE 100 UNIT/ML INSULN.PEN 14 UNIT SC (17:09)
[2024-04-14] MEDS: DOXAZOSIN 2 MG TABLET 4 MG GT (21:00)
[2024-04-15] VITALS (9 sets, daily range): BP systolic 103–121; BP diastolic 67–75; PULSE 71–79; RESP 18–20; TEMP 36.2–36.6; O2SAT 96–98
[2024-04-15] MEDS: IPRATROPIUM/ALBUTEROL 3 ML AMPUL.NEB INH ×4 (01:20→19:10)
[2024-04-15] MEDS: ERYTHROMYCIN ETHYLSUCCINATE 200 MG/5 ML ML 100 MG GT ×3 (05:53→22:00)
[2024-04-15] MEDS: FAMOTIDINE 20 MG TABLET GT ×2 (08:52→21:59)
[2024-04-15] MEDS: FUROSEMIDE 20 MG TABLET GT (08:52)
[2024-04-15] MEDS: DEX/HYPRO/GLY ARTIFICAL TEARS 225 DROP/15 ML BTL BOTH EYES (08:52)
[2024-04-15] MEDS: SENNOSIDES 8.6 MG TABLET GT ×2 (08:52→22:00)
[2024-04-15] MEDS: AMLODIPINE 5 MG TABLET 2.5 MG GT (08:52)
[2024-04-15] MEDS: INSULIN GLARGINE 100 UNIT/ML INSULN.PEN 14 UNIT SC (17:31)
[2024-04-15] MEDS: DOXAZOSIN 2 MG TABLET 4 MG GT (21:59)
[2024-04-15] MEDS: ONDANSETRON HCL 4 MG TABLET GT (22:00)
[2024-04-16] VITALS (9 sets, daily range): BP systolic 100–138; BP diastolic 67–82; PULSE 71–81; RESP 17–20; TEMP 36.5–36.6; O2SAT 97–100
[2024-04-16] MEDS: IPRATROPIUM/ALBUTEROL 3 ML AMPUL.NEB INH ×4 (01:00→19:28)
[2024-04-16] MEDS: ERYTHROMYCIN ETHYLSUCCINATE 200 MG/5 ML ML 100 MG GT ×3 (06:00→21:06)
[2024-04-16] MEDS: FUROSEMIDE 20 MG TABLET GT (08:01)
[2024-04-16] MEDS: DEX/HYPRO/GLY ARTIFICAL TEARS 225 DROP/15 ML BTL BOTH EYES (08:01)
[2024-04-16] MEDS: FAMOTIDINE 20 MG TABLET GT ×2 (08:01→20:31)
[2024-04-16] MEDS: SENNOSIDES 8.6 MG TABLET GT ×2 (08:01→20:32)
--- NOTE | 2024-04-16 12:32 | PC.SS ---
This SSD faxed orders to [facility] for respiratory and nutrition needs, active for incontinence supplies and [employer] for mechanical bed and mechanical lift. This SSD will continue to follow up to ensure delivery by DC date 05/04/24. This DC is being initiated by resident RP/Spouse Harper Ferreira.
[2024-04-16] MEDS: INSULIN GLARGINE 100 UNIT/ML INSULN.PEN 14 UNIT SC (17:20)
--- NOTE | 2024-04-16 20:09 | PD.SAPROG ---
Progress Note - SubAcute DIAGNOSIS (1) Aneurysmal subarachnoid hemorrhage: Status: Chronic (2) DM type 2, goal HbA1c < 9%: Status: Chronic (3) Chronic respiratory failure: Status: Chronic (4) Tracheostomy in place: Status: Chronic (5) PEG (percutaneous endoscopic gastrostomy) status: Status: Chronic (6) Essential (primary) hypertension: Status: Acute SUBJECTIVE Fever:: none Shortness of Breath:: none GI:: no complaints Pain:: none OBJECTIVE Most recent vital signs: Last Vital Signs Temp 97.7 F 04/16/24 18:00 Pulse 74 04/16/24 19:28 Resp 18 04/16/24 19:28 BP 128/80 04/16/24 18:00 Pulse Ox 99 04/16/24 19:28 O2 Del Method Blow-by 04/16/24 18:00 O2 Flow Rate 6 04/16/24 19:28 FiO2 28 04/16/24 19:28 Neurological:: alert (responds to simple commands, shakes hands with his left) Speech:: none Answers questions:: no Respiratory:: shallow breathing Cardiovascular: RRR Abdomen: soft and nontender Extremities:: deformities Decubitus:: improved Tracheostomy:: to blow by Feeding per:: G tube Complaints:: none ASSESSMENT & PLAN Assessment: Pt. has certainly been awake and eye tracking some, does extend his left hand when offered a hand shake Diagnosis and treatment reviewed. All else stable, pt fully dependent for care. I had a detailed converiisation with pt's about his status and prognostic outlooks and explained in detail all her questions to which she was thankful even though more saddened by the reality of his condition and unpromising expectations. He shows no improvement in his chronic significant neurological deficit.No new issues Plans to take him home on hold for the time at pt's 's request for lack of resources to take good care of him at home. Recently started on Erythromycin low dose for improving GI motiliity and seems to be working as emesis now has been very infrequent. This was discussed in IDT with pts daughter over the phone. 02-23-24 Bedside meeting with pt's present along with RN and respiratory therapist and all questions answered. Family reconsidering possibility of taking pt home. No decision finalized. Will help her in training if she so decides. Comfort objective achieved. Plan: Current treatment as ongoing. . Family updated.
[2024-04-16] MEDS: ACETAMINOPHEN 325 MG TABLET 650 MG GT (20:30)
[2024-04-16] MEDS: DOXAZOSIN 2 MG TABLET 4 MG GT (20:31)
[2024-04-17] VITALS (7 sets, daily range): BP systolic 110–122; BP diastolic 73–75; PULSE 71–81; RESP 18–20; TEMP 36.3–36.5; O2SAT 99–100
[2024-04-17] MEDS: IPRATROPIUM/ALBUTEROL 3 ML AMPUL.NEB INH ×4 (00:15→16:30)
[2024-04-17] MEDS: ERYTHROMYCIN ETHYLSUCCINATE 200 MG/5 ML ML 100 MG GT ×3 (05:12→21:01)
[2024-04-17] MEDS: SENNOSIDES 8.6 MG TABLET GT ×2 (08:05→20:11)
[2024-04-17] MEDS: AMLODIPINE 5 MG TABLET 2.5 MG GT (08:05)
[2024-04-17] MEDS: DEX/HYPRO/GLY ARTIFICAL TEARS 225 DROP/15 ML BTL BOTH EYES (08:05)
[2024-04-17] MEDS: FUROSEMIDE 20 MG TABLET GT (08:05)
[2024-04-17] MEDS: FAMOTIDINE 20 MG TABLET GT ×2 (08:05→20:11)
[2024-04-17] MEDS: INSULIN GLARGINE 100 UNIT/ML INSULN.PEN 14 UNIT SC (16:53)
[2024-04-17] MEDS: DOXAZOSIN 2 MG TABLET 4 MG GT (20:11)
[2024-04-18] VITALS (7 sets, daily range): BP systolic 130–162; BP diastolic 76–83; PULSE 70–86; RESP 18–20; TEMP 36.3–36.9; O2SAT 97–99
[2024-04-18] MEDS: IPRATROPIUM/ALBUTEROL 3 ML AMPUL.NEB INH ×4 (00:30→19:20)
[2024-04-18] MEDS: ERYTHROMYCIN ETHYLSUCCINATE 200 MG/5 ML ML 100 MG GT ×3 (05:05→21:15)
[2024-04-18] MEDS: DEX/HYPRO/GLY ARTIFICAL TEARS 225 DROP/15 ML BTL BOTH EYES (08:21)
[2024-04-18] MEDS: AMLODIPINE 5 MG TABLET 2.5 MG GT (08:21)
[2024-04-18] MEDS: FAMOTIDINE 20 MG TABLET GT ×2 (08:22→20:04)
[2024-04-18] MEDS: SENNOSIDES 8.6 MG TABLET GT ×2 (08:22→20:04)
[2024-04-18] MEDS: FUROSEMIDE 20 MG TABLET GT (08:22)
[2024-04-18] MEDS: ACETAMINOPHEN 325 MG TABLET 650 MG GT (14:10)
[2024-04-18] MEDS: INSULIN GLARGINE 100 UNIT/ML INSULN.PEN 14 UNIT SC (17:19)
[2024-04-18] MEDS: DOXAZOSIN 2 MG TABLET 4 MG GT (20:03)
[2024-04-19] VITALS (9 sets, daily range): BP systolic 94–135; BP diastolic 59–78; PULSE 75–83; RESP 16–20; TEMP 36.4–36.8; O2SAT 97–100
[2024-04-19] MEDS: IPRATROPIUM/ALBUTEROL 3 ML AMPUL.NEB INH ×4 (00:10→16:52)
[2024-04-19] MEDS: ERYTHROMYCIN ETHYLSUCCINATE 200 MG/5 ML ML 100 MG GT ×3 (05:25→21:16)
[2024-04-19] MEDS: AMLODIPINE 5 MG TABLET 2.5 MG GT (09:45)
[2024-04-19] MEDS: FAMOTIDINE 20 MG TABLET GT ×2 (09:46→20:30)
[2024-04-19] MEDS: FUROSEMIDE 20 MG TABLET GT (09:46)
[2024-04-19] MEDS: DEX/HYPRO/GLY ARTIFICAL TEARS 225 DROP/15 ML BTL BOTH EYES (09:46)
[2024-04-19] MEDS: SENNOSIDES 8.6 MG TABLET GT ×2 (09:46→20:30)
[2024-04-19] MEDS: INSULIN GLARGINE 100 UNIT/ML INSULN.PEN 14 UNIT SC (17:47)
[2024-04-19] MEDS: DOXAZOSIN 2 MG TABLET 4 MG GT (20:30)
[2024-04-20] VITALS (9 sets, daily range): BP systolic 110–129; BP diastolic 71–80; PULSE 66–87; RESP 17–19; TEMP 36.1–37; O2SAT 96–100
[2024-04-20] MEDS: IPRATROPIUM/ALBUTEROL 3 ML AMPUL.NEB INH ×3 (00:27→13:15)
[2024-04-20] MEDS: ERYTHROMYCIN ETHYLSUCCINATE 200 MG/5 ML ML 100 MG GT ×2 (05:15→14:02)
[2024-04-20] MEDS: AMLODIPINE 5 MG TABLET 2.5 MG GT (08:52)
[2024-04-20] MEDS: DEX/HYPRO/GLY ARTIFICAL TEARS 225 DROP/15 ML BTL BOTH EYES (08:52)
[2024-04-20] MEDS: FAMOTIDINE 20 MG TABLET GT ×2 (08:53→20:15)
[2024-04-20] MEDS: FUROSEMIDE 20 MG TABLET GT (08:53)
[2024-04-20] MEDS: SENNOSIDES 8.6 MG TABLET GT ×2 (08:54→20:15)
[2024-04-20] MEDS: guaiFENesin Liq 100 MG/5 ML LIQUID 300 MG GT (14:04)
[2024-04-20] MEDS: ONDANSETRON HCL 4 MG TABLET GT (14:05)
[2024-04-20] MEDS: INSULIN GLARGINE 100 UNIT/ML INSULN.PEN 14 UNIT SC (17:06)
[2024-04-20] MEDS: DOXAZOSIN 2 MG TABLET 4 MG GT (20:15)
--- NOTE | 2024-04-20 21:46 | ESPR_ITS ---
Progress Note - SubAcute DIAGNOSIS (1) Aneurysmal subarachnoid hemorrhage: Status: Chronic (2) DM type 2, goal HbA1c < 9%: Status: Chronic (3) Chronic respiratory failure: Status: Chronic (4) Tracheostomy in place: Status: Chronic (5) PEG (percutaneous endoscopic gastrostomy) status: Status: Chronic (6) Essential (primary) hypertension: Status: Acute SUBJECTIVE Fever:: none Shortness of Breath:: none GI:: no complaints Pain:: none OBJECTIVE Most recent vital signs: Last Vital Signs Temp 98.6 F 04/20/24 17:55 Pulse 68 04/20/24 17:55 Resp 18 04/20/24 17:55 BP 122/80 04/20/24 17:55 Pulse Ox 98 04/20/24 17:55 O2 Del Method Blow-by 04/20/24 06:00 O2 Flow Rate 6 04/20/24 13:15 FiO2 28 04/20/24 13:15 Neurological:: alert (responds to simple commands, shakes hands with his left) Speech:: none Answers questions:: no Respiratory:: shallow breathing Cardiovascular: RRR Abdomen: soft and nontender Extremities:: deformities Decubitus:: improved Tracheostomy:: to blow by Feeding per:: G tube Complaints:: none ASSESSMENT & PLAN Assessment: Pt. has certainly been awake and eye tracking some, does extend his left hand when offered a hand shake Diagnosis and treatment reviewed. All else stable, pt fully dependent for care. I had a detailed converiisation with pt's about his status and prognostic outlooks and explained in detail all her questions to which she was thankful even though more saddened by the reality of his condition and unpromising expectations. He shows no improvement in his chronic significant neurological deficit.No new issues Plans to take him home on hold for the time at pt's 's request for lack of resources to take good care of him at home. Recently started on Erythromycin low dose for improving GI motiliity and seems to be working as emesis now has been very infrequent. This was discussed in IDT with pts daughter over the phone. 02-23-24 Bedside meeting with pt's present along with RN and respiratory therapist and all questions answered. Family reconsidering possibility of taking pt home. No decision finalized. Will help her in training if she so decides. Comfort objective achieved. Plan: Current treatment as ongoing. . Family updated.
[2024-04-21] VITALS (9 sets, daily range): BP systolic 109–150; BP diastolic 68–78; PULSE 69–83; RESP 16–18; TEMP 36.2–36.6; O2SAT 97–99
[2024-04-21] MEDS: IPRATROPIUM/ALBUTEROL 3 ML AMPUL.NEB INH ×4 (00:52→17:12)
[2024-04-21] MEDS: AMLODIPINE 5 MG TABLET 2.5 MG GT (08:06)
[2024-04-21] MEDS: FUROSEMIDE 20 MG TABLET GT (08:07)
[2024-04-21] MEDS: FAMOTIDINE 20 MG TABLET GT ×2 (08:07→21:11)
[2024-04-21] MEDS: SENNOSIDES 8.6 MG TABLET GT ×2 (08:07→21:11)
[2024-04-21] MEDS: DEX/HYPRO/GLY ARTIFICAL TEARS 225 DROP/15 ML BTL BOTH EYES (08:07)
[2024-04-21] MEDS: guaiFENesin Liq 100 MG/5 ML LIQUID 300 MG GT (08:30)
[2024-04-21] MEDS: ONDANSETRON HCL 4 MG TABLET GT ×2 (11:15→23:30)
[2024-04-21] MEDS: ACETAMINOPHEN 325 MG TABLET 650 MG GT (11:33)
--- NOTE | 2024-04-21 13:08 | PC.NURSE ---
Seen by Dr Diaz, O2 sat 94% at RA , no new orders made.
--- NOTE | 2024-04-21 16:16 | PC.SS ---
Room visit: Resident is laying in bed with head of the bed elevated with edilia light properly placed with no signs of distress. Resident is alert and oriented, he is unable to make needs known as his answers to simple questions are inconsistent. He nods head yes/ no to answer very simple basic questions. His Harper is his decision maker. Resident has no changes in care or condition, remains on blow by with trach in place and GT for medications and nutrition. Resident will remain in current care and will continue to have all subacute care needs met by staff. This SSD will continue to make daily contact with resident and monitor for changes in mood and behavior.
[2024-04-21] MEDS: INSULIN GLARGINE 100 UNIT/ML INSULN.PEN 14 UNIT SC (17:54)
[2024-04-21] MEDS: DOXAZOSIN 2 MG TABLET 4 MG GT (21:10)
[2024-04-21] MEDS: ERYTHROMYCIN ETHYLSUCCINATE 200 MG/5 ML ML 100 MG GT (22:11)
[2024-04-22] VITALS (7 sets, daily range): BP systolic 105–137; BP diastolic 67–81; PULSE 60–81; RESP 16–20; TEMP 36.2–36.7; O2SAT 88–99
[2024-04-22] MEDS: IPRATROPIUM/ALBUTEROL 3 ML AMPUL.NEB INH ×4 (00:23→17:55)
[2024-04-22] MEDS: ERYTHROMYCIN ETHYLSUCCINATE 200 MG/5 ML ML 100 MG GT ×3 (06:11→22:16)
[2024-04-22] MEDS: DEX/HYPRO/GLY ARTIFICAL TEARS 225 DROP/15 ML BTL BOTH EYES (08:09)
[2024-04-22] MEDS: AMLODIPINE 5 MG TABLET 2.5 MG GT (08:09)
[2024-04-22] MEDS: FAMOTIDINE 20 MG TABLET GT ×2 (08:10→21:16)
[2024-04-22] MEDS: SENNOSIDES 8.6 MG TABLET GT ×2 (08:10→21:16)
[2024-04-22] MEDS: FUROSEMIDE 20 MG TABLET GT (08:10)
--- NOTE | 2024-04-22 14:21 | PC.SS ---
This SSD informed by staff resident SHANEKA MurguiaHarpercharles Ferreira is present during care, this SSD received mixed reviews of care being provided by Harper. Shower nurse stated Harper denies ever helping with showers or knowing how to shower resident. Harper continues to come in for a few hours 3 days a week, she assist minimally according to staff. This SSD spoke with Harper regarding training with resident and the importance of her knowing how to care for him at home. Harper made aware if she cannot care for resident and demonstrate in facility MD this will not be a safe transition to home. Harper stated she is aware and continues to want to bring resident home for care. Harper will continue to train with staff and will continue to be monitored for safety traning for plans to DC to home.
[2024-04-22] MEDS: INSULIN GLARGINE 100 UNIT/ML INSULN.PEN 14 UNIT SC (17:14)
[2024-04-22] MEDS: DOXAZOSIN 2 MG TABLET 4 MG GT (21:16)
[2024-04-23] VITALS: BP 106/64; PULSE 80; RESP 20; TEMP 36.9
[2024-04-23 01:08] VITALS: PULSE 81; PULSE 85; RESP 20; O2SAT 96; O2SAT 97
[2024-04-23] MEDS: IPRATROPIUM/ALBUTEROL 3 ML AMPUL.NEB INH ×4 (01:08→19:20)
[2024-04-23 05:47] VITALS: BP 105/69; PULSE 82; RESP 20; TEMP 36.3; O2SAT 99
[2024-04-23] MEDS: ERYTHROMYCIN ETHYLSUCCINATE 200 MG/5 ML ML 100 MG GT ×3 (06:06→22:21)
[2024-04-23 07:15] VITALS: PULSE 72; RESP 18; O2SAT 97
[2024-04-23 08:36] VITALS: BP 106/68; PULSE 65
[2024-04-23] MEDS: FUROSEMIDE 20 MG TABLET GT (08:37)
[2024-04-23] MEDS: FAMOTIDINE 20 MG TABLET GT ×2 (08:37→21:00)
[2024-04-23] MEDS: SENNOSIDES 8.6 MG TABLET GT ×2 (08:37→21:00)
[2024-04-23] MEDS: DEX/HYPRO/GLY ARTIFICAL TEARS 225 DROP/15 ML BTL BOTH EYES (08:37)
[2024-04-23 13:25] VITALS: PULSE 83; RESP 20; O2SAT 99
--- NOTE | 2024-04-23 16:20 | PC.SS ---
This SSD met with RP and son Forest, discussed all questions and concerns regarding DC planning scheduled for May 04, both have decided to postpone DC. Both feel resident is not ready to return home and family has not received all proper training needed for a safe DC to home. Family and this SSD will revisit DC planning at a later time. Plan is for resident to remain in current care, meanwhile per request of SHANEKA Saleem, referral will be sent to [facility].
[2024-04-23] MEDS: INSULIN GLARGINE 100 UNIT/ML INSULN.PEN 14 UNIT SC (17:28)
[2024-04-23] MEDS: DOXAZOSIN 2 MG TABLET 4 MG GT (21:00)
[2024-04-24] VITALS (7 sets, daily range): BP systolic 108–110; BP diastolic 67–70; PULSE 76–93; RESP 18–20; TEMP 36.4–36.5; O2SAT 94–99
[2024-04-24] MEDS: IPRATROPIUM/ALBUTEROL 3 ML AMPUL.NEB INH ×4 (01:00→16:58)
[2024-04-24] MEDS: ERYTHROMYCIN ETHYLSUCCINATE 200 MG/5 ML ML 100 MG GT ×3 (06:09→22:12)
[2024-04-24] MEDS: SENNOSIDES 8.6 MG TABLET GT ×2 (08:55→21:00)
[2024-04-24] MEDS: DEX/HYPRO/GLY ARTIFICAL TEARS 225 DROP/15 ML BTL BOTH EYES (08:55)
[2024-04-24] MEDS: AMLODIPINE 5 MG TABLET 2.5 MG GT (08:55)
[2024-04-24] MEDS: FUROSEMIDE 20 MG TABLET GT (08:55)
[2024-04-24] MEDS: FAMOTIDINE 20 MG TABLET GT ×2 (08:55→21:00)
[2024-04-24] MEDS: INSULIN GLARGINE 100 UNIT/ML INSULN.PEN 14 UNIT SC (18:06)
[2024-04-24] MEDS: DOXAZOSIN 2 MG TABLET 4 MG GT (21:00)
[2024-04-25] VITALS (9 sets, daily range): BP systolic 104–126; BP diastolic 62–77; PULSE 75–91; RESP 17–18; TEMP 36.2–36.9; O2SAT 95–99
[2024-04-25] MEDS: IPRATROPIUM/ALBUTEROL 3 ML AMPUL.NEB INH ×4 (01:57→19:08)
[2024-04-25] MEDS: ERYTHROMYCIN ETHYLSUCCINATE 200 MG/5 ML ML 100 MG GT ×3 (06:35→21:17)
[2024-04-25] MEDS: SENNOSIDES 8.6 MG TABLET GT ×2 (08:12→20:17)
[2024-04-25] MEDS: FUROSEMIDE 20 MG TABLET GT (08:12)
[2024-04-25] MEDS: DEX/HYPRO/GLY ARTIFICAL TEARS 225 DROP/15 ML BTL BOTH EYES (08:12)
[2024-04-25] MEDS: FAMOTIDINE 20 MG TABLET GT ×2 (08:12→20:17)
--- NOTE | 2024-04-25 12:15 | ESPR_ITS ---
Progress Note - SubAcute DIAGNOSIS (1) Aneurysmal subarachnoid hemorrhage: Status: Chronic (2) DM type 2, goal HbA1c < 9%: Status: Chronic (3) Chronic respiratory failure: Status: Chronic (4) Tracheostomy in place: Status: Chronic (5) PEG (percutaneous endoscopic gastrostomy) status: Status: Chronic (6) Essential (primary) hypertension: Status: Acute SUBJECTIVE Fever:: none Shortness of Breath:: none GI:: no complaints Pain:: none OBJECTIVE Most recent vital signs: Last Vital Signs Temp 97.2 F 04/25/24 06:00 Pulse 88 04/25/24 12:01 Resp 18 04/25/24 12:01 BP 104/62 04/25/24 08:12 Pulse Ox 97 04/25/24 12:01 O2 Del Method Blow-by 04/25/24 06:00 O2 Flow Rate 8 04/25/24 12:01 FiO2 30 04/25/24 12:01 Neurological:: alert (responds to simple commands, shakes hands with his left) Speech:: none Answers questions:: no Respiratory:: shallow breathing Cardiovascular: RRR Abdomen: soft and nontender Extremities:: deformities Decubitus:: improved Tracheostomy:: to blow by Feeding per:: G tube Complaints:: none ASSESSMENT & PLAN Assessment: Pt. has certainly been awake and eye tracking some, does extend his left hand when offered a hand shake Diagnosis and treatment reviewed. All else stable, pt fully dependent for care. I had a detailed converiisation with pt's about his status and prognostic outlooks and explained in detail all her questions to which she was thankful even though more saddened by the reality of his condition and unpromising expectations. He shows no improvement in his chronic significant neurological deficit.No new issues Plans to take him home on hold for the time at pt's 's request for lack of resources to take good care of him at home. Recently started on Erythromycin low dose for improving GI motiliity and seems to be working as emesis now has been very infrequent. This was discussed in IDT with pts daughter over the phone. 02-23-24 Bedside meeting with pt's present along with RN and respiratory therapist and all questions answered. Family reconsidering possibility of taking pt home. No decision finalized. Will help her in training if she so decides. Comfort objective achieved. Pt remains appropriate in response to simple commands but almost fully dependent for care Plan: Current treatment as ongoing. . Family updated.
[2024-04-25] MEDS: INSULIN GLARGINE 100 UNIT/ML INSULN.PEN 14 UNIT SC (17:24)
[2024-04-25] MEDS: DOXAZOSIN 2 MG TABLET 4 MG GT (20:16)
[2024-04-26] VITALS (8 sets, daily range): BP systolic 96–124; BP diastolic 58–78; PULSE 51–93; RESP 17–19; TEMP 36.1–37.2; O2SAT 97–99
[2024-04-26] MEDS: IPRATROPIUM/ALBUTEROL 3 ML AMPUL.NEB INH ×3 (00:41→11:50)
[2024-04-26] MEDS: ERYTHROMYCIN ETHYLSUCCINATE 200 MG/5 ML ML 100 MG GT ×3 (05:13→21:10)
[2024-04-26] MEDS: AMLODIPINE 5 MG TABLET 2.5 MG GT (08:41)
[2024-04-26] MEDS: DEX/HYPRO/GLY ARTIFICAL TEARS 225 DROP/15 ML BTL BOTH EYES (08:42)
[2024-04-26] MEDS: SENNOSIDES 8.6 MG TABLET GT ×2 (08:42→20:10)
[2024-04-26] MEDS: FUROSEMIDE 20 MG TABLET GT (08:42)
[2024-04-26] MEDS: FAMOTIDINE 20 MG TABLET GT ×2 (08:42→20:10)
--- NOTE | 2024-04-26 16:13 | PC.SS ---
This SSD spoke with resident son Shaka Ferreira who stated he and his siblings had a meeting regarding resident current status. Shaka stated he and his siblings have agreed resident should not come home as his level of care is too much for the family, he feels resident should remain in a subacute and has requested a referral be sent to [facility]. This SSD sent referral to [facility] at request of resident son. This SSD encouraged family to stay involved with [facility] and follow up weekly to check on status of appropriate gender bed. Resident Harper remains at bedside and is assisting with bedside care as she wants to remain involved in care. This SSD will follow up with [facility] and will keep family updated.
[2024-04-26] MEDS: INSULIN GLARGINE 100 UNIT/ML INSULN.PEN 14 UNIT SC (17:26)
[2024-04-26] MEDS: DOXAZOSIN 2 MG TABLET 4 MG GT (20:10)
[2024-04-27] VITALS (7 sets, daily range): BP systolic 102–119; BP diastolic 66–76; PULSE 74–96; RESP 17–18; TEMP 36.4–36.5; O2SAT 96–99
[2024-04-27] MEDS: IPRATROPIUM/ALBUTEROL 3 ML AMPUL.NEB INH ×4 (00:32→18:50)
[2024-04-27] MEDS: ERYTHROMYCIN ETHYLSUCCINATE 200 MG/5 ML ML 100 MG GT ×3 (05:28→21:15)
[2024-04-27] MEDS: INSULIN REGULAR, HUMAN 100 UNIT/ML VIAL SC ×2 (05:28→17:16)
[2024-04-27] MEDS: SENNOSIDES 8.6 MG TABLET GT ×2 (09:13→20:20)
[2024-04-27] MEDS: FAMOTIDINE 20 MG TABLET GT ×2 (09:13→20:20)
[2024-04-27] MEDS: FUROSEMIDE 20 MG TABLET GT (09:13)
[2024-04-27] MEDS: DEX/HYPRO/GLY ARTIFICAL TEARS 225 DROP/15 ML BTL BOTH EYES (09:13)
[2024-04-27] MEDS: guaiFENesin Liq 100 MG/5 ML LIQUID 300 MG GT (09:14)
[2024-04-27] MEDS: ONDANSETRON HCL 4 MG TABLET GT (09:14)
--- NOTE | 2024-04-27 09:41 | PC.SS ---
This SSD received call from Kena @ [facility] who acknowledged receiving referral, she stated they do not have any open beds. This SSD will update RP and will provide her with [facility] number if she has any further questions.
[2024-04-27] MEDS: ACETAMINOPHEN 325 MG TABLET 650 MG GT (10:27)
[2024-04-27] MEDS: INSULIN GLARGINE 100 UNIT/ML INSULN.PEN 14 UNIT SC (17:17)
[2024-04-28] VITALS (9 sets, daily range): BP systolic 101–137; BP diastolic 64–70; PULSE 73–84; RESP 17–18; TEMP 36.4–36.8; O2SAT 97–98; BMI 24.2
[2024-04-28] MEDS: IPRATROPIUM/ALBUTEROL 3 ML AMPUL.NEB INH ×4 (01:00→19:20)
[2024-04-28] MEDS: INSULIN REGULAR, HUMAN 100 UNIT/ML VIAL SC ×2 (05:35→17:27)
[2024-04-28] MEDS: ERYTHROMYCIN ETHYLSUCCINATE 200 MG/5 ML ML 100 MG GT ×3 (05:35→22:00)
[2024-04-28] MEDS: AMLODIPINE 5 MG TABLET 2.5 MG GT (08:54)
[2024-04-28] MEDS: DEX/HYPRO/GLY ARTIFICAL TEARS 225 DROP/15 ML BTL BOTH EYES (08:55)
[2024-04-28] MEDS: SENNOSIDES 8.6 MG TABLET GT ×2 (08:55→21:00)
[2024-04-28] MEDS: FAMOTIDINE 20 MG TABLET GT ×2 (08:55→21:00)
[2024-04-28] MEDS: CARBAMIDE PEROXIDE OTIC SOL 15 ML BTL 5 DROP BOTH EARS ×2 (08:55→21:00)
[2024-04-28] MEDS: FUROSEMIDE 20 MG TABLET GT (08:55)
--- NOTE | 2024-04-28 17:02 | ESPR_ITS ---
Progress Note - SubAcute DIAGNOSIS (1) Aneurysmal subarachnoid hemorrhage: Status: Chronic (2) DM type 2, goal HbA1c < 9%: Status: Chronic (3) Chronic respiratory failure: Status: Chronic (4) Tracheostomy in place: Status: Chronic (5) PEG (percutaneous endoscopic gastrostomy) status: Status: Chronic (6) Essential (primary) hypertension: Status: Acute SUBJECTIVE Fever:: none Shortness of Breath:: none GI:: no complaints Pain:: none OBJECTIVE Most recent vital signs: Last Vital Signs Temp 97.9 F 04/28/24 12:00 Pulse 77 04/28/24 12:00 Resp 18 04/28/24 12:00 BP 129/64 04/28/24 12:00 Pulse Ox 98 04/28/24 06:00 O2 Del Method Blow-by 04/28/24 06:00 O2 Flow Rate 8 04/28/24 01:08 FiO2 30 04/28/24 01:08 Neurological:: alert (responds to simple commands, shakes hands with his left) Speech:: none Answers questions:: no Respiratory:: shallow breathing Cardiovascular: RRR Abdomen: soft and nontender Extremities:: deformities Decubitus:: improved Tracheostomy:: to blow by Feeding per:: G tube Complaints:: none ASSESSMENT & PLAN Assessment: Pt. has certainly been awake and eye tracking some, does extend his left hand when offered a hand shake Diagnosis and treatment reviewed. All else stable, pt fully dependent for care. I had a detailed converiisation with pt's about his status and prognostic outlooks and explained in detail all her questions to which she was thankful even though more saddened by the reality of his condition and unpromising expectations. He shows no improvement in his chronic significant neurological deficit.No new issues Plans to take him home on hold for the time at pt's 's request for lack of resources to take good care of him at home. Recently started on Erythromycin low dose for improving GI motiliity and seems to be working as emesis now has been very infrequent. This was discussed in IDT with pts daughter over the phone. 02-23-24 Bedside meeting with pt's present along with RN and respiratory therapist and all questions answered. Family reconsidering possibility of taking pt home. No decision finalized. Will help her in training if she so decides. Comfort objective achieved. Pt remains appropriate in response to simple commands but almost fully dependent for care . No pain issues. Plan: Current treatment as ongoing. . Family updated.
[2024-04-28] MEDS: INSULIN GLARGINE 100 UNIT/ML INSULN.PEN 14 UNIT SC (17:28)
[2024-04-28] MEDS: DOXAZOSIN 2 MG TABLET 4 MG GT (21:00)
[2024-04-29] VITALS (9 sets, daily range): BP systolic 107–129; BP diastolic 68–77; PULSE 64–80; RESP 16–20; TEMP 35.9–36.5; O2SAT 94–99
[2024-04-29] MEDS: IPRATROPIUM/ALBUTEROL 3 ML AMPUL.NEB INH ×4 (00:05→18:31)
[2024-04-29] MEDS: ERYTHROMYCIN ETHYLSUCCINATE 200 MG/5 ML ML 100 MG GT ×3 (06:06→22:44)
[2024-04-29] MEDS: CARBAMIDE PEROXIDE OTIC SOL 15 ML BTL 5 DROP BOTH EARS ×2 (08:45→21:00)
[2024-04-29] MEDS: DEX/HYPRO/GLY ARTIFICAL TEARS 225 DROP/15 ML BTL BOTH EYES (08:45)
[2024-04-29] MEDS: AMLODIPINE 5 MG TABLET 2.5 MG GT (08:45)
[2024-04-29] MEDS: ONDANSETRON HCL 4 MG TABLET GT (08:45)
[2024-04-29] MEDS: FAMOTIDINE 20 MG TABLET GT ×2 (08:45→21:00)
[2024-04-29] MEDS: SENNOSIDES 8.6 MG TABLET GT ×2 (08:45→21:00)
[2024-04-29] MEDS: FUROSEMIDE 20 MG TABLET GT (08:45)
[2024-04-29] MEDS: INSULIN GLARGINE 100 UNIT/ML INSULN.PEN 14 UNIT SC (17:21)
[2024-04-29] MEDS: DOXAZOSIN 2 MG TABLET 4 MG GT (21:00)
[2024-04-30] VITALS (7 sets, daily range): BP systolic 104–117; BP diastolic 69–79; PULSE 70–77; RESP 16–20; TEMP 36.4–36.6; O2SAT 96–100
[2024-04-30] MEDS: IPRATROPIUM/ALBUTEROL 3 ML AMPUL.NEB INH ×4 (01:23→19:34)
[2024-04-30] MEDS: ERYTHROMYCIN ETHYLSUCCINATE 200 MG/5 ML ML 100 MG GT ×3 (05:44→20:59)
[2024-04-30] MEDS: FAMOTIDINE 20 MG TABLET GT ×2 (08:09→20:58)
[2024-04-30] MEDS: CARBAMIDE PEROXIDE OTIC SOL 15 ML BTL 5 DROP BOTH EARS ×2 (08:09→20:56)
[2024-04-30] MEDS: FUROSEMIDE 20 MG TABLET GT (08:09)
[2024-04-30] MEDS: DEX/HYPRO/GLY ARTIFICAL TEARS 225 DROP/15 ML BTL BOTH EYES (08:09)
[2024-04-30] MEDS: SENNOSIDES 8.6 MG TABLET GT ×2 (08:09→20:59)
--- NOTE | 2024-04-30 14:58 | PC.SS ---
Room visit: Resident is laying in bed with head of the bed elevated with call light properly placed with no signs of distress. Resident remains on blow by with trach in place and GT for medication and nutrition. Resident is unable to make needs known as he has absence of speech, his Harper is his decision maker. Resident will remain in current care and will continue to have all subacute care needs met by staff. This SSD will continue to make daily contact with resident and offer support and he may need.
--- NOTE | 2024-04-30 15:16 | PC.SS ---
This SSD called [facility] [employer] [facility] [employer] to cancel all DME and supplies orders per request of resident SHANEKA Saleem and resident son Shaka. They have decided resident will not return home and will remain in current care until an appropriate bed is made available in preferred facility at [facility].
[2024-04-30] MEDS: INSULIN GLARGINE 100 UNIT/ML INSULN.PEN 14 UNIT SC (17:18)
[2024-04-30] MEDS: DOXAZOSIN 2 MG TABLET 4 MG GT (20:58)
[2024-05-01] VITALS (9 sets, daily range): BP systolic 100–134; BP diastolic 60–77; PULSE 71–79; RESP 18–20; TEMP 36.2–36.6; O2SAT 96–98
[2024-05-01] MEDS: IPRATROPIUM/ALBUTEROL 3 ML AMPUL.NEB INH ×4 (01:50→16:00)
[2024-05-01] MEDS: ERYTHROMYCIN ETHYLSUCCINATE 200 MG/5 ML ML 100 MG GT ×3 (06:00→22:00)
[2024-05-01] MEDS: ONDANSETRON HCL 4 MG TABLET GT ×2 (08:50→20:13)
[2024-05-01] MEDS: AMLODIPINE 5 MG TABLET 2.5 MG GT (08:52)
[2024-05-01] MEDS: SENNOSIDES 8.6 MG TABLET GT ×2 (08:53→20:13)
[2024-05-01] MEDS: FAMOTIDINE 20 MG TABLET GT ×2 (08:53→20:13)
[2024-05-01] MEDS: FUROSEMIDE 20 MG TABLET GT (08:53)
[2024-05-01] MEDS: CARBAMIDE PEROXIDE OTIC SOL 15 ML BTL 5 DROP BOTH EARS ×2 (08:53→20:13)
[2024-05-01] MEDS: DEX/HYPRO/GLY ARTIFICAL TEARS 225 DROP/15 ML BTL BOTH EYES (08:53)
[2024-05-01] MEDS: INSULIN GLARGINE 100 UNIT/ML INSULN.PEN 14 UNIT SC (17:28)
[2024-05-01] MEDS: DOXAZOSIN 2 MG TABLET 4 MG GT (20:13)
[2024-05-02] VITALS (8 sets, daily range): BP systolic 108–127; BP diastolic 63–80; PULSE 71–82; RESP 16–20; TEMP 36.2–36.7; O2SAT 96–100
[2024-05-02] MEDS: IPRATROPIUM/ALBUTEROL 3 ML AMPUL.NEB INH ×4 (02:55→18:00)
[2024-05-02] MEDS: ERYTHROMYCIN ETHYLSUCCINATE 200 MG/5 ML ML 100 MG GT ×3 (06:18→21:09)
[2024-05-02] MEDS: SENNOSIDES 8.6 MG TABLET GT ×2 (09:00→21:09)
[2024-05-02] MEDS: FUROSEMIDE 20 MG TABLET GT (09:00)
[2024-05-02] MEDS: DEX/HYPRO/GLY ARTIFICAL TEARS 225 DROP/15 ML BTL BOTH EYES (09:00)
[2024-05-02] MEDS: FAMOTIDINE 20 MG TABLET GT ×2 (09:00→21:09)
[2024-05-02] MEDS: INSULIN REGULAR, HUMAN 100 UNIT/ML VIAL SC (17:00)
[2024-05-02] MEDS: INSULIN GLARGINE 100 UNIT/ML INSULN.PEN 14 UNIT SC (17:22)
[2024-05-02] MEDS: DOXAZOSIN 2 MG TABLET 4 MG GT (21:09)
--- NOTE | 2024-05-02 21:47 | ESPR_ITS ---
Progress Note - SubAcute DIAGNOSIS (1) Aneurysmal subarachnoid hemorrhage: Status: Chronic (2) DM type 2, goal HbA1c < 9%: Status: Chronic (3) Chronic respiratory failure: Status: Chronic (4) Tracheostomy in place: Status: Chronic (5) PEG (percutaneous endoscopic gastrostomy) status: Status: Chronic (6) Essential (primary) hypertension: Status: Acute SUBJECTIVE Fever:: none Shortness of Breath:: none GI:: no complaints Pain:: none OBJECTIVE Most recent vital signs: Last Vital Signs Temp 98.1 F 05/02/24 12:00 Pulse 79 05/02/24 13:30 Resp 18 05/02/24 13:30 BP 127/65 05/02/24 12:00 Pulse Ox 98 05/02/24 13:30 O2 Del Method Blow-by 05/02/24 06:00 O2 Flow Rate 6 05/02/24 13:30 FiO2 28 05/02/24 13:30 Neurological:: alert (responds to simple commands, shakes hands with his left) Speech:: none Answers questions:: no Respiratory:: shallow breathing Cardiovascular: RRR Abdomen: soft and nontender Extremities:: deformities Decubitus:: improved Tracheostomy:: to blow by Feeding per:: G tube Complaints:: none ASSESSMENT & PLAN Assessment: Pt. has certainly been awake and eye tracking some, does extend his left hand when offered a hand shake Diagnosis and treatment reviewed. All else stable, pt fully dependent for care. I had a detailed converiisation with pt's about his status and prognostic outlooks and explained in detail all her questions to which she was thankful even though more saddened by the reality of his condition and unpromising expectations. He shows no improvement in his chronic significant neurological deficit.No new issues Plans to take him home on hold for the time at pt's 's request for lack of resources to take good care of him at home. Recently started on Erythromycin low dose for improving GI motiliity and seems to be working as emesis now has been very infrequent. This was discussed in IDT with pts daughter over the phone. 02-23-24 Bedside meeting with pt's present along with RN and respiratory therapist and all questions answered. Family reconsidering possibility of taking pt home. No decision finalized. Will help her in training if she so decides. Comfort objective achieved. Pt remains appropriate in response to simple commands but almost fully dependent for care . No pain issues. Plan: Current treatment as ongoing. . Family updated.
[2024-05-03] VITALS (9 sets, daily range): BP systolic 96–129; BP diastolic 61–82; PULSE 72–83; RESP 17–20; TEMP 35.9–36.7; O2SAT 96–100
[2024-05-03] MEDS: IPRATROPIUM/ALBUTEROL 3 ML AMPUL.NEB INH ×4 (00:45→18:35)
[2024-05-03] MEDS: ERYTHROMYCIN ETHYLSUCCINATE 200 MG/5 ML ML 100 MG GT ×3 (05:18→21:44)
[2024-05-03] MEDS: FAMOTIDINE 20 MG TABLET GT ×2 (09:37→20:29)
[2024-05-03] MEDS: DEX/HYPRO/GLY ARTIFICAL TEARS 225 DROP/15 ML BTL BOTH EYES (09:37)
[2024-05-03] MEDS: FUROSEMIDE 20 MG TABLET GT (09:37)
[2024-05-03] MEDS: SENNOSIDES 8.6 MG TABLET GT ×2 (09:38→20:30)
[2024-05-03] MEDS: INSULIN GLARGINE 100 UNIT/ML INSULN.PEN 14 UNIT SC (17:32)
[2024-05-03] MEDS: DOXAZOSIN 2 MG TABLET 4 MG GT (20:29)
[2024-05-04] VITALS (8 sets, daily range): BP systolic 110–121; BP diastolic 70–72; PULSE 71–88; RESP 17–20; TEMP 36.1–36.7; O2SAT 96–98
[2024-05-04] MEDS: IPRATROPIUM/ALBUTEROL 3 ML AMPUL.NEB INH ×4 (00:45→19:30)
[2024-05-04] MEDS: ERYTHROMYCIN ETHYLSUCCINATE 200 MG/5 ML ML 100 MG GT ×2 (05:03→13:15)
[2024-05-04] MEDS: INSULIN REGULAR, HUMAN 100 UNIT/ML VIAL SC (05:40)
[2024-05-04] MEDS: AMLODIPINE 5 MG TABLET 2.5 MG GT (08:57)
[2024-05-04] MEDS: DEX/HYPRO/GLY ARTIFICAL TEARS 225 DROP/15 ML BTL BOTH EYES (08:58)
[2024-05-04] MEDS: FAMOTIDINE 20 MG TABLET GT ×2 (08:58→21:00)
[2024-05-04] MEDS: SENNOSIDES 8.6 MG TABLET GT ×2 (08:58→21:00)
[2024-05-04] MEDS: FUROSEMIDE 20 MG TABLET GT (08:58)
[2024-05-04] MEDS: ONDANSETRON HCL 4 MG TABLET GT (11:30)
[2024-05-04] MEDS: INSULIN GLARGINE 100 UNIT/ML INSULN.PEN 14 UNIT SC (16:57)
[2024-05-04] MEDS: DOXAZOSIN 2 MG TABLET 4 MG GT (21:00)
[2024-05-05] VITALS: BP 121/56; PULSE 76; RESP 20; TEMP 36.1
[2024-05-05] MEDS: IPRATROPIUM/ALBUTEROL 3 ML AMPUL.NEB INH ×3 (01:10→19:00)
[2024-05-05 03:18] VITALS: PULSE 91; RESP 18; O2SAT 98
[2024-05-05 05:18] VITALS: BP 122/74; PULSE 72; RESP 18; TEMP 36.1; O2SAT 99
[2024-05-05] MEDS: INSULIN REGULAR, HUMAN 100 UNIT/ML VIAL SC (05:20)
[2024-05-05 07:40] VITALS: PULSE 77; PULSE 79; RESP 16; RESP 18; O2SAT 94; O2SAT 97
[2024-05-05 08:26] VITALS: BP 129/76; PULSE 76
[2024-05-05] MEDS: FAMOTIDINE 20 MG TABLET GT ×2 (08:26→21:59)
[2024-05-05] MEDS: DEX/HYPRO/GLY ARTIFICAL TEARS 225 DROP/15 ML BTL BOTH EYES (08:26)
[2024-05-05] MEDS: FUROSEMIDE 20 MG TABLET GT (08:26)
[2024-05-05] MEDS: SENNOSIDES 8.6 MG TABLET GT ×2 (08:26→21:59)
[2024-05-05] MEDS: AMLODIPINE 5 MG TABLET 2.5 MG GT (08:26)
[2024-05-05 10:42] VITALS: BMI 24.3
--- NOTE | 2024-05-05 12:10 | PC.SS ---
Room visit: Resident remains on blow by with trach in place and GT for medication and nutrition. Resident has absence of speech unable to make needs known, he nods his head yes/no to simple yes/no questions. Resident decision maker is his Harper Ferreira. Resident will remain in current care and will continue to have all subacute care needs met by staff. This SSD will continue to make daily contact with resident and will offer support as he will accept.
[2024-05-05] MEDS: INSULIN GLARGINE 100 UNIT/ML INSULN.PEN 14 UNIT SC (17:29)
[2024-05-05 19:00] VITALS: PULSE 86; RESP 19; O2SAT 95
[2024-05-05] MEDS: DOXAZOSIN 2 MG TABLET 4 MG GT (21:58)
[2024-05-05] MEDS: ERYTHROMYCIN ETHYLSUCCINATE 200 MG/5 ML ML 100 MG GT (21:59)
[2024-05-06] VITALS (7 sets, daily range): BP systolic 99–105; BP diastolic 67–72; PULSE 66–79; RESP 18–20; TEMP 36.4–36.6; O2SAT 95–99
[2024-05-06] MEDS: IPRATROPIUM/ALBUTEROL 3 ML AMPUL.NEB INH ×4 (01:00→18:59)
[2024-05-06] MEDS: ERYTHROMYCIN ETHYLSUCCINATE 200 MG/5 ML ML 100 MG GT ×3 (06:16→21:19)
[2024-05-06] MEDS: DEX/HYPRO/GLY ARTIFICAL TEARS 225 DROP/15 ML BTL BOTH EYES (08:05)
[2024-05-06] MEDS: FAMOTIDINE 20 MG TABLET GT ×2 (08:05→20:11)
[2024-05-06] MEDS: SENNOSIDES 8.6 MG TABLET GT ×2 (08:05→20:11)
[2024-05-06] MEDS: FUROSEMIDE 20 MG TABLET GT (08:05)
[2024-05-06] MEDS: INSULIN GLARGINE 100 UNIT/ML INSULN.PEN 14 UNIT SC (17:49)
[2024-05-06] MEDS: DOXAZOSIN 2 MG TABLET 4 MG GT (20:11)
--- NOTE | 2024-05-06 21:43 | ESPR_ITS ---
Progress Note - SubAcute DIAGNOSIS (1) Aneurysmal subarachnoid hemorrhage: Status: Chronic (2) DM type 2, goal HbA1c < 9%: Status: Chronic (3) Chronic respiratory failure: Status: Chronic (4) Tracheostomy in place: Status: Chronic (5) PEG (percutaneous endoscopic gastrostomy) status: Status: Chronic (6) Essential (primary) hypertension: Status: Acute SUBJECTIVE Fever:: none Shortness of Breath:: none GI:: no complaints Pain:: none OBJECTIVE Most recent vital signs: Last Vital Signs Temp 97.8 F 05/06/24 06:00 Pulse 73 05/06/24 12:20 Resp 18 05/06/24 12:20 BP 105/72 05/06/24 08:05 Pulse Ox 98 05/06/24 12:20 O2 Del Method Blow-by 05/06/24 06:00 O2 Flow Rate 6 05/06/24 12:20 FiO2 28 05/06/24 12:20 Neurological:: alert (responds to simple commands, shakes hands with his left) Speech:: none Answers questions:: no Respiratory:: shallow breathing Cardiovascular: RRR Abdomen: soft and nontender Extremities:: deformities Decubitus:: improved Tracheostomy:: to blow by Feeding per:: G tube Complaints:: none ASSESSMENT & PLAN Assessment: Pt. has certainly been awake and eye tracking some, does extend his left hand when offered a hand shake Diagnosis and treatment reviewed. All else stable, pt fully dependent for care. I had a detailed converiisation with pt's about his status and prognostic outlooks and explained in detail all her questions to which she was thankful even though more saddened by the reality of his condition and unpromising expectations. He shows no improvement in his chronic significant neurological deficit.No new issues Plans to take him home on hold for the time at pt's 's request for lack of resources to take good care of him at home. Recently started on Erythromycin low dose for improving GI motiliity and seems to be working as emesis now has been very infrequent. This was discussed in IDT with pts daughter over the phone. 02-23-24 Bedside meeting with pt's present along with RN and respiratory therapist and all questions answered. Family reconsidering possibility of taking pt home. No decision finalized. Will help her in training if she so decides. Comfort objective achieved. Pt remains appropriate in response to simple commands but almost fully dependent for care . No pain issues. Plan: Current treatment as ongoing. . Family updated.
[2024-05-07] VITALS (7 sets, daily range): BP systolic 113–159; BP diastolic 72–86; PULSE 69–75; RESP 18–20; TEMP 35.8–35.9; O2SAT 97–100
[2024-05-07] MEDS: IPRATROPIUM/ALBUTEROL 3 ML AMPUL.NEB INH ×4 (01:33→19:30)
[2024-05-07] MEDS: ERYTHROMYCIN ETHYLSUCCINATE 200 MG/5 ML ML 100 MG GT ×3 (05:30→22:10)
[2024-05-07] MEDS: AMLODIPINE 5 MG TABLET 2.5 MG GT (08:45)
[2024-05-07] MEDS: FUROSEMIDE 20 MG TABLET GT (08:45)
[2024-05-07] MEDS: DEX/HYPRO/GLY ARTIFICAL TEARS 225 DROP/15 ML BTL BOTH EYES (08:45)
[2024-05-07] MEDS: FAMOTIDINE 20 MG TABLET GT ×2 (08:45→21:00)
[2024-05-07] MEDS: SENNOSIDES 8.6 MG TABLET GT ×2 (08:45→21:00)
[2024-05-07] MEDS: INSULIN GLARGINE 100 UNIT/ML INSULN.PEN 14 UNIT SC (17:19)
[2024-05-07] MEDS: DOXAZOSIN 2 MG TABLET 4 MG GT (21:00)
[2024-05-08] VITALS (9 sets, daily range): BP systolic 96–137; BP diastolic 64–83; PULSE 65–75; RESP 16–20; TEMP 36.3–37.1; O2SAT 97–100
[2024-05-08] MEDS: IPRATROPIUM/ALBUTEROL 3 ML AMPUL.NEB INH ×4 (00:43→18:39)
[2024-05-08] MEDS: ERYTHROMYCIN ETHYLSUCCINATE 200 MG/5 ML ML 100 MG GT ×3 (06:09→21:08)
[2024-05-08] MEDS: FAMOTIDINE 20 MG TABLET GT ×2 (08:44→21:08)
[2024-05-08] MEDS: FUROSEMIDE 20 MG TABLET GT (08:44)
[2024-05-08] MEDS: AMLODIPINE 5 MG TABLET 2.5 MG GT (08:44)
[2024-05-08] MEDS: DEX/HYPRO/GLY ARTIFICAL TEARS 225 DROP/15 ML BTL BOTH EYES (08:44)
[2024-05-08] MEDS: SENNOSIDES 8.6 MG TABLET GT ×2 (08:44→21:08)
[2024-05-08] MEDS: INSULIN GLARGINE 100 UNIT/ML INSULN.PEN 14 UNIT SC (17:51)
--- NOTE | 2024-05-08 19:26 | ESPR_ITS ---
Progress Note - SubAcute DIAGNOSIS (1) Aneurysmal subarachnoid hemorrhage: Status: Chronic (2) DM type 2, goal HbA1c < 9%: Status: Chronic (3) Chronic respiratory failure: Status: Chronic (4) Tracheostomy in place: Status: Chronic (5) PEG (percutaneous endoscopic gastrostomy) status: Status: Chronic (6) Essential (primary) hypertension: Status: Acute SUBJECTIVE Fever:: none Shortness of Breath:: none GI:: no complaints Pain:: none OBJECTIVE Most recent vital signs: Last Vital Signs Temp 98 F 05/08/24 18:00 Pulse 72 05/08/24 18:00 Resp 18 05/08/24 18:00 BP 137/83 H 05/08/24 18:00 Pulse Ox 98 05/08/24 18:00 O2 Del Method Blow-by 05/08/24 18:00 O2 Flow Rate 6 05/08/24 12:40 FiO2 28 05/08/24 12:40 Neurological:: alert (responds to simple commands, shakes hands with his left) Speech:: none Answers questions:: no Respiratory:: shallow breathing Cardiovascular: RRR Abdomen: soft and nontender Extremities:: deformities Decubitus:: improved Tracheostomy:: to blow by Feeding per:: G tube Complaints:: none ASSESSMENT & PLAN Assessment: Pt. has certainly been awake and eye tracking some, does extend his left hand when offered a hand shake Diagnosis and treatment reviewed. All else stable, pt fully dependent for care. I had a detailed converiisation with pt's about his status and prognostic outlooks and explained in detail all her questions to which she was thankful even though more saddened by the reality of his condition and unpromising expectations. He shows no improvement in his chronic significant neurological deficit.No new issues Plans to take him home on hold for the time at pt's 's request for lack of resources to take good care of him at home. Recently started on Erythromycin low dose for improving GI motiliity and seems to be working as emesis now has been very infrequent. This was discussed in IDT with pts daughter over the phone. 02-23-24 Bedside meeting with pt's present along with RN and respiratory therapist and all questions answered. Family reconsidering possibility of taking pt home. No decision finalized. Will help her in training if she so decides. Comfort objective achieved. Pt remains appropriate in response to simple commands but almost fully dependent for care . No pain issues. Plan: Current treatment as ongoing. . Family updated.
[2024-05-08] MEDS: DOXAZOSIN 2 MG TABLET 4 MG GT (21:08)
[2024-05-09] VITALS (9 sets, daily range): BP systolic 108–114; BP diastolic 68–75; PULSE 65–83; RESP 18–21; TEMP 36.2–36.7; O2SAT 97–100
[2024-05-09] MEDS: IPRATROPIUM/ALBUTEROL 3 ML AMPUL.NEB INH ×4 (00:38→16:05)
[2024-05-09] MEDS: ERYTHROMYCIN ETHYLSUCCINATE 200 MG/5 ML ML 100 MG GT ×3 (06:00→21:28)
[2024-05-09] MEDS: DEX/HYPRO/GLY ARTIFICAL TEARS 225 DROP/15 ML BTL BOTH EYES (08:29)
[2024-05-09] MEDS: FUROSEMIDE 20 MG TABLET GT (08:29)
[2024-05-09] MEDS: FAMOTIDINE 20 MG TABLET GT ×2 (08:29→21:10)
[2024-05-09] MEDS: SENNOSIDES 8.6 MG TABLET GT ×2 (08:29→21:10)
[2024-05-09] MEDS: INSULIN GLARGINE 100 UNIT/ML INSULN.PEN 14 UNIT SC (17:29)
[2024-05-09] MEDS: DOXAZOSIN 2 MG TABLET 4 MG GT (21:10)
[2024-05-10] VITALS (7 sets, daily range): BP systolic 106–114; BP diastolic 66–74; PULSE 68–75; RESP 18–20; TEMP 36.1; O2SAT 97–100
[2024-05-10] MEDS: IPRATROPIUM/ALBUTEROL 3 ML AMPUL.NEB INH ×4 (00:15→18:03)
[2024-05-10] MEDS: ERYTHROMYCIN ETHYLSUCCINATE 200 MG/5 ML ML 100 MG GT ×3 (05:38→22:21)
[2024-05-10] MEDS: AMLODIPINE 5 MG TABLET 2.5 MG GT (08:14)
[2024-05-10] MEDS: SENNOSIDES 8.6 MG TABLET GT ×2 (08:14→21:20)
[2024-05-10] MEDS: DEX/HYPRO/GLY ARTIFICAL TEARS 225 DROP/15 ML BTL BOTH EYES (08:14)
[2024-05-10] MEDS: FUROSEMIDE 20 MG TABLET GT (08:14)
[2024-05-10] MEDS: FAMOTIDINE 20 MG TABLET GT ×2 (08:14→21:20)
[2024-05-10] MEDS: INSULIN GLARGINE 100 UNIT/ML INSULN.PEN 14 UNIT SC (17:58)
[2024-05-10] MEDS: DOXAZOSIN 2 MG TABLET 4 MG GT (21:00)
[2024-05-10] MEDS: ONDANSETRON HCL 4 MG TABLET GT (22:21)
[2024-05-11] VITALS (10 sets, daily range): BP systolic 107–157; BP diastolic 61–81; PULSE 66–80; RESP 16–20; TEMP 36.3–37.1; O2SAT 94–100
[2024-05-11] MEDS: IPRATROPIUM/ALBUTEROL 3 ML AMPUL.NEB INH ×4 (00:11→19:40)
[2024-05-11] MEDS: ERYTHROMYCIN ETHYLSUCCINATE 200 MG/5 ML ML 100 MG GT ×3 (06:06→22:29)
[2024-05-11] MEDS: AMLODIPINE 5 MG TABLET 2.5 MG GT (09:38)
[2024-05-11] MEDS: DEX/HYPRO/GLY ARTIFICAL TEARS 225 DROP/15 ML BTL BOTH EYES (09:39)
[2024-05-11] MEDS: FAMOTIDINE 20 MG TABLET GT ×2 (09:39→21:00)
[2024-05-11] MEDS: SENNOSIDES 8.6 MG TABLET GT ×2 (09:40→21:00)
[2024-05-11] MEDS: FUROSEMIDE 20 MG TABLET GT (09:40)
[2024-05-11] MEDS: ACETAMINOPHEN 325 MG TABLET 650 MG GT (12:50)
[2024-05-11] MEDS: INSULIN GLARGINE 100 UNIT/ML INSULN.PEN 14 UNIT SC (17:56)
[2024-05-11] MEDS: INSULIN REGULAR, HUMAN 100 UNIT/ML VIAL SC (17:56)
[2024-05-11] MEDS: DOXAZOSIN 2 MG TABLET 4 MG GT (21:00)
[2024-05-12] VITALS (7 sets, daily range): BP systolic 113–128; BP diastolic 77–85; PULSE 58–81; RESP 16–20; TEMP 36.2–36.4; O2SAT 97–100
[2024-05-12] MEDS: IPRATROPIUM/ALBUTEROL 3 ML AMPUL.NEB INH ×4 (01:32→19:10)
[2024-05-12] MEDS: ERYTHROMYCIN ETHYLSUCCINATE 200 MG/5 ML ML 100 MG GT ×3 (06:01→22:08)
[2024-05-12] MEDS: AMLODIPINE 5 MG TABLET 2.5 MG GT (08:34)
[2024-05-12] MEDS: SENNOSIDES 8.6 MG TABLET GT ×2 (08:37→21:08)
[2024-05-12] MEDS: FAMOTIDINE 20 MG TABLET GT ×2 (08:37→21:08)
[2024-05-12] MEDS: FUROSEMIDE 20 MG TABLET GT (08:37)
[2024-05-12] MEDS: DEX/HYPRO/GLY ARTIFICAL TEARS 225 DROP/15 ML BTL BOTH EYES (08:37)
--- NOTE | 2024-05-12 13:20 | ESPR_ITS ---
Progress Note - SubAcute DIAGNOSIS (1) Aneurysmal subarachnoid hemorrhage: Status: Chronic (2) DM type 2, goal HbA1c < 9%: Status: Chronic (3) Chronic respiratory failure: Status: Chronic (4) Tracheostomy in place: Status: Chronic (5) PEG (percutaneous endoscopic gastrostomy) status: Status: Chronic (6) Essential (primary) hypertension: Status: Acute SUBJECTIVE Fever:: none Shortness of Breath:: none GI:: no complaints Pain:: none OBJECTIVE Most recent vital signs: Last Vital Signs Temp 97.4 F 05/14/24 06:00 Pulse 81 05/14/24 12:10 Resp 18 05/14/24 12:10 BP 131/84 H 05/14/24 08:11 Pulse Ox 98 05/14/24 12:10 O2 Del Method Blow-by 05/14/24 06:00 O2 Flow Rate 6 05/14/24 12:10 FiO2 28 05/14/24 12:10 Neurological:: alert (responds to simple commands, shakes hands with his left) Speech:: none Answers questions:: no Respiratory:: shallow breathing Cardiovascular: RRR Abdomen: soft and nontender Extremities:: deformities Decubitus:: improved Tracheostomy:: to blow by Feeding per:: G tube Complaints:: none ASSESSMENT & PLAN Assessment: Pt. has certainly been awake and eye tracking some, does extend his left hand when offered a hand shake Diagnosis and treatment reviewed. All else stable, pt fully dependent for care. I had a detailed converiisation with pt's about his status and prognostic outlooks and explained in detail all her questions to which she was thankful even though more saddened by the reality of his condition and unpromising expectations. He shows no improvement in his chronic significant neurological deficit.No new issues Plans to take him home on hold for the time at pt's 's request for lack of resources to take good care of him at home. Recently started on Erythromycin low dose for improving GI motiliity and seems to be working as emesis now has been very infrequent. This was discussed in IDT with pts daughter over the phone. 02-23-24 Bedside meeting with pt's present along with RN and respiratory therapist and all questions answered. Family reconsidering possibility of taking pt home but now requests transfer to [facility] in [place] that would be closer to home before being able to think of arrangement for transfer home. Comfort objective achieved. Pt remains appropriate in response to simple commands but almost fully dependent for care . No pain issues. Plan: Current treatment as ongoing. . Family updated.
[2024-05-12] MEDS: INSULIN GLARGINE 100 UNIT/ML INSULN.PEN 14 UNIT SC (17:55)
[2024-05-13] VITALS (9 sets, daily range): BP systolic 92–109; BP diastolic 60–74; PULSE 61–90; RESP 16–20; TEMP 36.3–36.6; O2SAT 95–99
[2024-05-13] MEDS: IPRATROPIUM/ALBUTEROL 3 ML AMPUL.NEB INH ×4 (00:55→19:10)
[2024-05-13] MEDS: INSULIN REGULAR, HUMAN 100 UNIT/ML VIAL SC (06:21)
[2024-05-13] MEDS: ERYTHROMYCIN ETHYLSUCCINATE 200 MG/5 ML ML 100 MG GT ×3 (06:34→22:00)
[2024-05-13] MEDS: DEX/HYPRO/GLY ARTIFICAL TEARS 225 DROP/15 ML BTL BOTH EYES (08:20)
[2024-05-13] MEDS: FUROSEMIDE 20 MG TABLET GT (08:20)
[2024-05-13] MEDS: FAMOTIDINE 20 MG TABLET GT ×2 (08:20→21:00)
[2024-05-13] MEDS: SENNOSIDES 8.6 MG TABLET GT ×2 (08:20→21:00)
[2024-05-13] MEDS: ACETAMINOPHEN 325 MG TABLET 650 MG GT (11:10)
--- NOTE | 2024-05-13 13:57 | PC.SS ---
SHANEKA Saleem brought in shirts for resident, she stated she will start doing laundry at home. Laundry sign put up, charge nurse made aware.
[2024-05-13] MEDS: INSULIN GLARGINE 100 UNIT/ML INSULN.PEN 14 UNIT SC (17:17)
[2024-05-14] VITALS (7 sets, daily range): BP systolic 124–137; BP diastolic 81–84; PULSE 55–85; RESP 16–19; TEMP 36.3; O2SAT 97–99
[2024-05-14] MEDS: IPRATROPIUM/ALBUTEROL 3 ML AMPUL.NEB INH ×4 (00:50→19:10)
[2024-05-14] MEDS: ERYTHROMYCIN ETHYLSUCCINATE 200 MG/5 ML ML 100 MG GT ×3 (06:01→22:15)
[2024-05-14] MEDS: DEX/HYPRO/GLY ARTIFICAL TEARS 225 DROP/15 ML BTL BOTH EYES (08:12)
[2024-05-14] MEDS: SENNOSIDES 8.6 MG TABLET GT ×2 (08:12→21:07)
[2024-05-14] MEDS: FUROSEMIDE 20 MG TABLET GT (08:12)
[2024-05-14] MEDS: FAMOTIDINE 20 MG TABLET GT ×2 (08:12→21:07)
[2024-05-14] MEDS: INSULIN GLARGINE 100 UNIT/ML INSULN.PEN 14 UNIT SC (17:15)
[2024-05-14] MEDS: DOXAZOSIN 2 MG TABLET 4 MG GT (21:07)
[2024-05-15] VITALS (8 sets, daily range): BP systolic 103–155; BP diastolic 64–83; PULSE 71–83; RESP 16–20; TEMP 36.5–36.9; O2SAT 95–100
[2024-05-15] MEDS: IPRATROPIUM/ALBUTEROL 3 ML AMPUL.NEB INH ×4 (00:40→19:05)
[2024-05-15] MEDS: ERYTHROMYCIN ETHYLSUCCINATE 200 MG/5 ML ML 100 MG GT ×3 (05:15→21:20)
[2024-05-15] MEDS: ONDANSETRON HCL 4 MG TABLET GT (07:40)
[2024-05-15] MEDS: AMLODIPINE 5 MG TABLET 2.5 MG GT (08:15)
[2024-05-15] MEDS: DEX/HYPRO/GLY ARTIFICAL TEARS 225 DROP/15 ML BTL BOTH EYES (08:16)
[2024-05-15] MEDS: FAMOTIDINE 20 MG TABLET GT ×2 (08:16→21:20)
[2024-05-15] MEDS: SENNOSIDES 8.6 MG TABLET GT ×2 (08:17→21:20)
[2024-05-15] MEDS: FUROSEMIDE 20 MG TABLET GT (08:17)
[2024-05-15] MEDS: INSULIN GLARGINE 100 UNIT/ML INSULN.PEN 14 UNIT SC (17:40)
[2024-05-15] MEDS: DOXAZOSIN 2 MG TABLET 4 MG GT (21:20)
[2024-05-16] VITALS (10 sets, daily range): BP systolic 94–150; BP diastolic 60–80; PULSE 70–84; RESP 17–20; TEMP 36.2–36.4; O2SAT 97–100
[2024-05-16] MEDS: IPRATROPIUM/ALBUTEROL 3 ML AMPUL.NEB INH ×4 (00:40→19:10)
[2024-05-16] MEDS: ERYTHROMYCIN ETHYLSUCCINATE 200 MG/5 ML ML 100 MG GT ×3 (05:05→21:20)
[2024-05-16] MEDS: AMLODIPINE 5 MG TABLET 2.5 MG GT (09:06)
[2024-05-16] MEDS: DEX/HYPRO/GLY ARTIFICAL TEARS 225 DROP/15 ML BTL BOTH EYES (09:07)
[2024-05-16] MEDS: SENNOSIDES 8.6 MG TABLET GT ×2 (09:08→20:49)
[2024-05-16] MEDS: FUROSEMIDE 20 MG TABLET GT (09:08)
[2024-05-16] MEDS: FAMOTIDINE 20 MG TABLET GT ×2 (09:08→20:49)
[2024-05-16] MEDS: INSULIN GLARGINE 100 UNIT/ML INSULN.PEN 14 UNIT SC (17:59)
--- NOTE | 2024-05-16 18:11 | ESPR_ITS ---
Progress Note - SubAcute DIAGNOSIS (1) Aneurysmal subarachnoid hemorrhage: Status: Chronic (2) DM type 2, goal HbA1c < 9%: Status: Chronic (3) Chronic respiratory failure: Status: Chronic (4) Tracheostomy in place: Status: Chronic (5) PEG (percutaneous endoscopic gastrostomy) status: Status: Chronic (6) Essential (primary) hypertension: Status: Acute SUBJECTIVE Fever:: none Shortness of Breath:: none GI:: no complaints Pain:: none OBJECTIVE Most recent vital signs: Last Vital Signs Temp 97.3 F 05/16/24 12:00 Pulse 78 05/16/24 12:40 Resp 18 05/16/24 12:40 BP 150/76 H 05/16/24 12:00 Pulse Ox 100 05/16/24 12:40 O2 Del Method Blow-by 05/16/24 06:00 O2 Flow Rate 6 05/16/24 12:40 FiO2 28 05/16/24 12:40 Neurological:: alert (responds to simple commands, shakes hands with his left) Speech:: none Answers questions:: no Respiratory:: shallow breathing Cardiovascular: RRR Abdomen: soft and nontender Extremities:: deformities Decubitus:: improved Tracheostomy:: to blow by Feeding per:: G tube Complaints:: none ASSESSMENT & PLAN Assessment: Pt. has certainly been awake and eye tracking some, does extend his left hand when offered a hand shake Diagnosis and treatment reviewed. All else stable, pt fully dependent for care. I had a detailed converiisation with pt's about his status and prognostic outlooks and explained in detail all her questions to which she was thankful even though more saddened by the reality of his condition and unpromising expectations. He shows no improvement in his chronic significant neurological deficit.No new issues Plans to take him home on hold for the time at pt's 's request for lack of resources to take good care of him at home. Recently started on Erythromycin low dose for improving GI motiliity and seems to be working as emesis now has been very infrequent. This was discussed in IDT with pts daughter over the phone. 02-23-24 Bedside meeting with pt's present along with RN and respiratory therapist and all questions answered. Family reconsidering possibility of taking pt home but now requests transfer to [facility] in [place] that would be closer to home before being able to think of arrangement for transfer home. Comfort objective achieved. Pt remains appropriate in response to simple commands but almost fully dependent for care . No pain issues. Plan: Current treatment as ongoing. . Family updated.
[2024-05-16] MEDS: DOXAZOSIN 2 MG TABLET 4 MG GT (20:49)
[2024-05-17] VITALS (8 sets, daily range): BP systolic 102–115; BP diastolic 68–74; PULSE 58–88; RESP 18–21; TEMP 36.3–36.6; O2SAT 96–100
[2024-05-17] MEDS: IPRATROPIUM/ALBUTEROL 3 ML AMPUL.NEB INH ×4 (00:40→19:05)
[2024-05-17] MEDS: ERYTHROMYCIN ETHYLSUCCINATE 200 MG/5 ML ML 100 MG GT ×3 (05:23→21:42)
[2024-05-17] MEDS: AMLODIPINE 5 MG TABLET 2.5 MG GT (09:07)
[2024-05-17] MEDS: DEX/HYPRO/GLY ARTIFICAL TEARS 225 DROP/15 ML BTL BOTH EYES (09:08)
[2024-05-17] MEDS: FAMOTIDINE 20 MG TABLET GT ×2 (09:08→20:50)
[2024-05-17] MEDS: FUROSEMIDE 20 MG TABLET GT (09:08)
[2024-05-17] MEDS: SENNOSIDES 8.6 MG TABLET GT ×2 (09:08→20:50)
[2024-05-17] MEDS: INSULIN GLARGINE 100 UNIT/ML INSULN.PEN 14 UNIT SC (17:43)
[2024-05-17] MEDS: DOXAZOSIN 2 MG TABLET 4 MG GT (20:49)
[2024-05-18] VITALS (8 sets, daily range): BP systolic 112–133; BP diastolic 62–78; PULSE 63–78; RESP 16–20; TEMP 36.1–36.6; O2SAT 95–99
[2024-05-18] MEDS: IPRATROPIUM/ALBUTEROL 3 ML AMPUL.NEB INH ×4 (00:40→19:47)
[2024-05-18] MEDS: ERYTHROMYCIN ETHYLSUCCINATE 200 MG/5 ML ML 100 MG GT ×3 (05:30→21:21)
[2024-05-18] MEDS: AMLODIPINE 5 MG TABLET 2.5 MG GT (08:29)
[2024-05-18] MEDS: FAMOTIDINE 20 MG TABLET GT ×2 (08:30→20:15)
[2024-05-18] MEDS: DEX/HYPRO/GLY ARTIFICAL TEARS 225 DROP/15 ML BTL BOTH EYES (08:30)
[2024-05-18] MEDS: FUROSEMIDE 20 MG TABLET GT (08:31)
[2024-05-18] MEDS: ACETAMINOPHEN 325 MG TABLET 650 MG GT (08:32)
[2024-05-18] MEDS: SENNOSIDES 8.6 MG TABLET GT ×2 (08:32→20:15)
[2024-05-18] MEDS: INSULIN GLARGINE 100 UNIT/ML INSULN.PEN 14 UNIT SC (17:28)
[2024-05-18] MEDS: DOXAZOSIN 2 MG TABLET 4 MG GT (20:15)
[2024-05-19] VITALS (7 sets, daily range): BP systolic 103–115; BP diastolic 72–78; PULSE 58–71; RESP 16–18; TEMP 36.2–36.8; O2SAT 97–99
[2024-05-19] MEDS: IPRATROPIUM/ALBUTEROL 3 ML AMPUL.NEB INH ×4 (01:23→19:41)
[2024-05-19] MEDS: ERYTHROMYCIN ETHYLSUCCINATE 200 MG/5 ML ML 100 MG GT ×3 (05:45→22:09)
[2024-05-19] MEDS: FUROSEMIDE 20 MG TABLET GT (09:33)
[2024-05-19] MEDS: DEX/HYPRO/GLY ARTIFICAL TEARS 225 DROP/15 ML BTL BOTH EYES (09:33)
[2024-05-19] MEDS: FAMOTIDINE 20 MG TABLET GT ×2 (09:33→21:09)
[2024-05-19] MEDS: AMLODIPINE 5 MG TABLET 2.5 MG GT (09:33)
[2024-05-19] MEDS: SENNOSIDES 8.6 MG TABLET GT ×2 (09:33→21:09)
[2024-05-19] MEDS: INSULIN GLARGINE 100 UNIT/ML INSULN.PEN 14 UNIT SC (17:18)
[2024-05-19] MEDS: DOXAZOSIN 2 MG TABLET 4 MG GT (21:09)
[2024-05-20] VITALS (8 sets, daily range): BP systolic 105–132; BP diastolic 67–81; PULSE 50–74; RESP 16–18; TEMP 36.3; O2SAT 97–99
[2024-05-20] MEDS: IPRATROPIUM/ALBUTEROL 3 ML AMPUL.NEB INH ×4 (01:23→20:30)
[2024-05-20] MEDS: ERYTHROMYCIN ETHYLSUCCINATE 200 MG/5 ML ML 100 MG GT ×3 (06:47→22:18)
[2024-05-20] MEDS: AMLODIPINE 5 MG TABLET 2.5 MG GT (08:20)
[2024-05-20] MEDS: FAMOTIDINE 20 MG TABLET GT ×2 (08:21→21:18)
[2024-05-20] MEDS: SENNOSIDES 8.6 MG TABLET GT ×2 (08:21→21:18)
[2024-05-20] MEDS: FUROSEMIDE 20 MG TABLET GT (08:21)
[2024-05-20] MEDS: DEX/HYPRO/GLY ARTIFICAL TEARS 225 DROP/15 ML BTL BOTH EYES (08:21)
--- NOTE | 2024-05-20 09:38 | ESPR_ITS ---
Progress Note - SubAcute DIAGNOSIS (1) Aneurysmal subarachnoid hemorrhage: Status: Chronic (2) DM type 2, goal HbA1c < 9%: Status: Chronic (3) Chronic respiratory failure: Status: Chronic (4) Tracheostomy in place: Status: Chronic (5) PEG (percutaneous endoscopic gastrostomy) status: Status: Chronic (6) Essential (primary) hypertension: Status: Acute SUBJECTIVE Fever:: none Shortness of Breath:: none GI:: no complaints Pain:: none OBJECTIVE Most recent vital signs: Last Vital Signs Temp 97.4 F 05/20/24 06:00 Pulse 74 05/20/24 08:20 Resp 16 05/20/24 07:00 BP 113/73 05/20/24 08:20 Pulse Ox 98 05/20/24 07:00 O2 Del Method Blow-by 05/19/24 06:00 O2 Flow Rate 6 05/20/24 07:00 FiO2 28 05/20/24 07:00 Neurological:: alert (responds to simple commands, shakes hands with his left) Speech:: none Answers questions:: no Respiratory:: shallow breathing Cardiovascular: RRR Abdomen: soft and nontender Extremities:: deformities Decubitus:: improved Tracheostomy:: to blow by Feeding per:: G tube Complaints:: none ASSESSMENT & PLAN Assessment: Pt. has certainly been awake and eye tracking some, does extend his left hand when offered a hand shake Diagnosis and treatment reviewed. All else stable, pt fully dependent for care. I had a detailed converiisation with pt's about his status and prognostic outlooks and explained in detail all her questions to which she was thankful even though more saddened by the reality of his condition and unpromising expectations. He shows no improvement in his chronic significant neurological deficit.No new issues Plans to take him home on hold for the time at pt's 's request for lack of resources to take good care of him at home. Recently started on Erythromycin low dose for improving GI motiliity and seems to be working as emesis now has been very infrequent. This was discussed in IDT with pts daughter over the phone. 02-23-24 Bedside meeting with pt's present along with RN and respiratory therapist and all questions answered. Family reconsidering possibility of taking pt home but now requests transfer to [facility] in [place] that would be closer to home before being able to think of arrangement for transfer home. Comfort objective achieved. Pt remains appropriate in response to simple commands but almost fully dependent for care . No pain issues. Plan: Current treatment as ongoing. . Family updated.
[2024-05-20] MEDS: INSULIN GLARGINE 100 UNIT/ML INSULN.PEN 14 UNIT SC (17:36)
[2024-05-20] MEDS: INSULIN REGULAR, HUMAN 100 UNIT/ML VIAL SC (17:37)
[2024-05-21] VITALS (7 sets, daily range): BP systolic 108–121; BP diastolic 69–73; PULSE 67–77; RESP 18–20; TEMP 36.3–37.1; O2SAT 96–99
[2024-05-21] MEDS: ONDANSETRON HCL 4 MG TABLET GT (00:06)
[2024-05-21] MEDS: IPRATROPIUM/ALBUTEROL 3 ML AMPUL.NEB INH ×4 (01:45→19:50)
[2024-05-21] MEDS: ERYTHROMYCIN ETHYLSUCCINATE 200 MG/5 ML ML 100 MG GT ×3 (06:49→22:07)
[2024-05-21] MEDS: AMLODIPINE 5 MG TABLET 2.5 MG GT (09:23)
[2024-05-21] MEDS: DEX/HYPRO/GLY ARTIFICAL TEARS 225 DROP/15 ML BTL BOTH EYES (09:24)
[2024-05-21] MEDS: FUROSEMIDE 20 MG TABLET GT (09:24)
[2024-05-21] MEDS: FAMOTIDINE 20 MG TABLET GT ×2 (09:24→21:07)
[2024-05-21] MEDS: SENNOSIDES 8.6 MG TABLET GT ×2 (09:24→21:07)
[2024-05-21] MEDS: ACETAMINOPHEN 325 MG TABLET 650 MG GT (13:50)
[2024-05-21] MEDS: INSULIN GLARGINE 100 UNIT/ML INSULN.PEN 14 UNIT SC (17:25)
[2024-05-21] MEDS: DOXAZOSIN 2 MG TABLET 4 MG GT (21:07)
[2024-05-22] VITALS (9 sets, daily range): BP systolic 104–107; BP diastolic 65–72; PULSE 70–80; RESP 18–22; TEMP 36.1–36.6; O2SAT 97–99
[2024-05-22] MEDS: IPRATROPIUM/ALBUTEROL 3 ML AMPUL.NEB INH ×4 (00:35→18:55)
[2024-05-22] MEDS: ERYTHROMYCIN ETHYLSUCCINATE 200 MG/5 ML ML 100 MG GT ×3 (06:10→21:49)
[2024-05-22] MEDS: FUROSEMIDE 20 MG TABLET GT (09:38)
[2024-05-22] MEDS: FAMOTIDINE 20 MG TABLET GT ×2 (09:38→20:46)
[2024-05-22] MEDS: DEX/HYPRO/GLY ARTIFICAL TEARS 225 DROP/15 ML BTL BOTH EYES (09:38)
[2024-05-22] MEDS: SENNOSIDES 8.6 MG TABLET GT ×2 (09:38→20:46)
[2024-05-22] MEDS: ACETAMINOPHEN 325 MG TABLET 650 MG GT (13:18)
[2024-05-22] MEDS: guaiFENesin Liq 100 MG/5 ML LIQUID 300 MG GT (13:18)
[2024-05-22] MEDS: ONDANSETRON HCL 4 MG TABLET GT (13:19)
[2024-05-22] MEDS: INSULIN GLARGINE 100 UNIT/ML INSULN.PEN 14 UNIT SC (17:27)
[2024-05-22] MEDS: DOXAZOSIN 2 MG TABLET 4 MG GT (20:45)
[2024-05-23] VITALS (9 sets, daily range): BP systolic 97–122; BP diastolic 68–83; PULSE 69–83; RESP 18–20; TEMP 36.1–36.3; O2SAT 96–100
[2024-05-23] MEDS: IPRATROPIUM/ALBUTEROL 3 ML AMPUL.NEB INH ×4 (00:45→18:10)
[2024-05-23] MEDS: ERYTHROMYCIN ETHYLSUCCINATE 200 MG/5 ML ML 100 MG GT ×3 (05:17→22:30)
[2024-05-23] MEDS: AMLODIPINE 5 MG TABLET 2.5 MG GT (09:24)
[2024-05-23] MEDS: DEX/HYPRO/GLY ARTIFICAL TEARS 225 DROP/15 ML BTL BOTH EYES (09:25)
[2024-05-23] MEDS: FAMOTIDINE 20 MG TABLET GT ×2 (09:25→20:13)
[2024-05-23] MEDS: SENNOSIDES 8.6 MG TABLET GT ×2 (09:25→20:13)
[2024-05-23] MEDS: FUROSEMIDE 20 MG TABLET GT (09:25)
[2024-05-23] MEDS: INSULIN GLARGINE 100 UNIT/ML INSULN.PEN 14 UNIT SC (17:20)
[2024-05-23] MEDS: DOXAZOSIN 2 MG TABLET 4 MG GT (20:12)
[2024-05-23] MEDS: ACETAMINOPHEN 325 MG TABLET 650 MG GT (20:14)
[2024-05-24] VITALS (10 sets, daily range): BP systolic 105–126; BP diastolic 70–76; PULSE 66–79; RESP 16–20; TEMP 36.2–36.9; O2SAT 97–99
[2024-05-24] MEDS: IPRATROPIUM/ALBUTEROL 3 ML AMPUL.NEB INH ×4 (00:35→18:10)
[2024-05-24] MEDS: ERYTHROMYCIN ETHYLSUCCINATE 200 MG/5 ML ML 100 MG GT ×3 (05:39→21:50)
[2024-05-24] MEDS: DEX/HYPRO/GLY ARTIFICAL TEARS 225 DROP/15 ML BTL BOTH EYES (09:26)
[2024-05-24] MEDS: FAMOTIDINE 20 MG TABLET GT ×2 (09:26→20:35)
[2024-05-24] MEDS: SENNOSIDES 8.6 MG TABLET GT ×2 (09:27→20:35)
[2024-05-24] MEDS: FUROSEMIDE 20 MG TABLET GT (09:27)
--- NOTE | 2024-05-24 11:22 | PC.SS ---
Resident son arrived this morning for training with [employer] and Lic for care. Family has asked to continue to be involved in resident care. Family plan is to have resident transferred to [facility] in [place] to be closer to family. Harper continues to want to take resident home, Harper has been coming in working with staff. Harper would like to take resident home, grown children have met and do not agree to taking him home due to heavy and complicated care regimen. This SSD will continue to meet with family and offer support for DC planing.
[2024-05-24] MEDS: INSULIN GLARGINE 100 UNIT/ML INSULN.PEN 14 UNIT SC (17:41)
--- NOTE | 2024-05-24 21:15 | ESPR_ITS ---
Progress Note - SubAcute DIAGNOSIS (1) Aneurysmal subarachnoid hemorrhage: Status: Chronic (2) DM type 2, goal HbA1c < 9%: Status: Chronic (3) Chronic respiratory failure: Status: Chronic (4) Tracheostomy in place: Status: Chronic (5) PEG (percutaneous endoscopic gastrostomy) status: Status: Chronic (6) Essential (primary) hypertension: Status: Acute SUBJECTIVE Fever:: none Shortness of Breath:: none GI:: no complaints Pain:: none OBJECTIVE Most recent vital signs: Last Vital Signs Temp 98.4 F 05/24/24 17:16 Pulse 79 05/24/24 18:10 Resp 18 05/24/24 18:10 BP 123/75 05/24/24 17:16 Pulse Ox 99 05/24/24 18:10 O2 Del Method Blow-by 05/24/24 17:16 O2 Flow Rate 6 05/24/24 18:10 FiO2 28 05/24/24 18:10 Neurological:: alert (responds to simple commands, shakes hands with his left) Speech:: none Answers questions:: no Respiratory:: shallow breathing Cardiovascular: RRR Abdomen: soft and nontender Extremities:: deformities Decubitus:: improved Tracheostomy:: to blow by Feeding per:: G tube Complaints:: none ASSESSMENT & PLAN Assessment: Pt. has certainly been awake and eye tracking some, does extend his left hand when offered a hand shake Diagnosis and treatment reviewed. All else stable, pt fully dependent for care. I had a detailed converiisation with pt's about his status and prognostic outlooks and explained in detail all her questions to which she was thankful even though more saddened by the reality of his condition and unpromising expectations. He shows no improvement in his chronic significant neurological deficit.No new issues Plans to take him home on hold for the time at pt's 's request for lack of resources to take good care of him at home. Recently started on Erythromycin low dose for improving GI motiliity and seems to be working as emesis now has been very infrequent. This was discussed in IDT with pts daughter over the phone. 02-23-24 Bedside meeting with pt's present along with RN and respiratory therapist and all questions answered. Family reconsidering possibility of taking pt home but now requests transfer to [facility] in [place] that would be closer to home before being able to think of arrangement for transfer home. Comfort objective achieved. Pt remains appropriate in response to simple commands but almost fully dependent for care . No pain issues. Plan: Current treatment as ongoing. . Family updated.
[2024-05-25] VITALS (7 sets, daily range): BP systolic 100–122; BP diastolic 69–75; PULSE 66–77; RESP 18–20; TEMP 36.4; O2SAT 97–100
[2024-05-25] MEDS: IPRATROPIUM/ALBUTEROL 3 ML AMPUL.NEB INH ×4 (00:48→16:17)
[2024-05-25] MEDS: ERYTHROMYCIN ETHYLSUCCINATE 200 MG/5 ML ML 100 MG GT ×3 (05:27→21:30)
[2024-05-25] MEDS: SENNOSIDES 8.6 MG TABLET GT ×2 (09:06→20:28)
[2024-05-25] MEDS: FAMOTIDINE 20 MG TABLET GT ×2 (09:06→20:28)
[2024-05-25] MEDS: FUROSEMIDE 20 MG TABLET GT (09:06)
[2024-05-25] MEDS: DEX/HYPRO/GLY ARTIFICAL TEARS 225 DROP/15 ML BTL BOTH EYES (09:06)
[2024-05-25] MEDS: INSULIN GLARGINE 100 UNIT/ML INSULN.PEN 14 UNIT SC (17:09)
[2024-05-25] MEDS: DOXAZOSIN 2 MG TABLET 4 MG GT (20:28)
[2024-05-26] VITALS (10 sets, daily range): BP systolic 100–133; BP diastolic 66–77; PULSE 63–79; RESP 17–26; TEMP 36.3–36.8; O2SAT 99–100
[2024-05-26] MEDS: IPRATROPIUM/ALBUTEROL 3 ML AMPUL.NEB INH ×4 (01:02→19:40)
[2024-05-26] MEDS: ERYTHROMYCIN ETHYLSUCCINATE 200 MG/5 ML ML 100 MG GT ×3 (06:15→22:23)
[2024-05-26] MEDS: AMLODIPINE 5 MG TABLET 2.5 MG GT (09:25)
[2024-05-26] MEDS: SENNOSIDES 8.6 MG TABLET GT ×2 (09:26→21:23)
[2024-05-26] MEDS: FAMOTIDINE 20 MG TABLET GT ×2 (09:26→21:22)
[2024-05-26] MEDS: FUROSEMIDE 20 MG TABLET GT (09:26)
[2024-05-26] MEDS: DEX/HYPRO/GLY ARTIFICAL TEARS 225 DROP/15 ML BTL BOTH EYES (09:26)
[2024-05-26] MEDS: INSULIN GLARGINE 100 UNIT/ML INSULN.PEN 14 UNIT SC (17:28)
[2024-05-26] MEDS: DOXAZOSIN 2 MG TABLET 4 MG GT (21:51)
[2024-05-27] VITALS (9 sets, daily range): BP systolic 114–120; BP diastolic 68–74; PULSE 65–77; RESP 18–20; TEMP 36.1–36.6; O2SAT 96–99
[2024-05-27] MEDS: IPRATROPIUM/ALBUTEROL 3 ML AMPUL.NEB INH ×4 (01:30→18:30)
[2024-05-27] MEDS: ERYTHROMYCIN ETHYLSUCCINATE 200 MG/5 ML ML 100 MG GT ×3 (05:54→21:07)
[2024-05-27] MEDS: FUROSEMIDE 20 MG TABLET GT (09:21)
[2024-05-27] MEDS: FAMOTIDINE 20 MG TABLET GT ×2 (09:21→21:07)
[2024-05-27] MEDS: ACETAMINOPHEN 325 MG TABLET 650 MG GT (09:21)
[2024-05-27] MEDS: DEX/HYPRO/GLY ARTIFICAL TEARS 225 DROP/15 ML BTL BOTH EYES (09:21)
[2024-05-27] MEDS: AMLODIPINE 5 MG TABLET 2.5 MG GT (09:21)
[2024-05-27] MEDS: SENNOSIDES 8.6 MG TABLET GT ×2 (09:21→21:07)
[2024-05-27] MEDS: ONDANSETRON HCL 4 MG TABLET GT ×2 (09:22→21:07)
[2024-05-27] MEDS: INSULIN GLARGINE 100 UNIT/ML INSULN.PEN 14 UNIT SC (17:04)
[2024-05-27] MEDS: DOXAZOSIN 2 MG TABLET 4 MG GT (21:06)
[2024-05-28] VITALS (7 sets, daily range): BP systolic 108–146; BP diastolic 68–86; PULSE 61–73; RESP 17–22; TEMP 36.3–36.8; O2SAT 95–100
[2024-05-28] MEDS: IPRATROPIUM/ALBUTEROL 3 ML AMPUL.NEB INH ×4 (00:35→19:20)
[2024-05-28] MEDS: ERYTHROMYCIN ETHYLSUCCINATE 200 MG/5 ML ML 100 MG GT ×3 (05:46→21:55)
[2024-05-28] MEDS: SENNOSIDES 8.6 MG TABLET GT ×2 (08:53→20:53)
[2024-05-28] MEDS: AMLODIPINE 5 MG TABLET 2.5 MG GT (08:53)
[2024-05-28] MEDS: DEX/HYPRO/GLY ARTIFICAL TEARS 225 DROP/15 ML BTL BOTH EYES (08:53)
[2024-05-28] MEDS: FAMOTIDINE 20 MG TABLET GT ×2 (08:53→20:53)
[2024-05-28] MEDS: FUROSEMIDE 20 MG TABLET GT (08:53)
--- NOTE | 2024-05-28 14:29 | PC.SS ---
Room visit: Resident is his decision maker as he is unable to make needs known. Resident is laying in bed with head of the bed elevated with call light properly placed with no signs of distress. Resident remains on blow by with trach in place and GT for medication and nutrition. Resident has no changes in care or condition he will remain in current care as he is unable to return home due to heavy and complicated care regimen. All subacute care needs to be met in facility by staff. Family would like resident moved closer to home in [place] at [facility], this SSD has sent referral with no available bed.
--- NOTE | 2024-05-28 15:47 | PC.NURSE ---
PCV 20 ordered for administration and has not arrived from [facility] yet.
[2024-05-28] MEDS: INSULIN GLARGINE 100 UNIT/ML INSULN.PEN 14 UNIT SC (17:06)
[2024-05-28] MEDS: DOXAZOSIN 2 MG TABLET 4 MG GT (20:53)
--- NOTE | 2024-05-28 21:11 | ESPR_ITS ---
Progress Note - SubAcute DIAGNOSIS (1) Aneurysmal subarachnoid hemorrhage: Status: Chronic (2) DM type 2, goal HbA1c < 9%: Status: Chronic (3) Chronic respiratory failure: Status: Chronic (4) Tracheostomy in place: Status: Chronic (5) PEG (percutaneous endoscopic gastrostomy) status: Status: Chronic (6) Essential (primary) hypertension: Status: Acute SUBJECTIVE Fever:: none Shortness of Breath:: none GI:: no complaints Pain:: none OBJECTIVE Most recent vital signs: Last Vital Signs Temp 98.3 F 05/28/24 17:42 Pulse 69 05/28/24 17:42 Resp 22 H 05/28/24 17:42 BP 118/70 05/28/24 17:42 Pulse Ox 95 05/28/24 17:42 O2 Del Method Blow-by 05/28/24 17:42 O2 Flow Rate 6 05/28/24 12:20 FiO2 28 05/28/24 12:20 Neurological:: alert (responds to simple commands, shakes hands with his left) Speech:: none Answers questions:: no Respiratory:: shallow breathing Cardiovascular: RRR Abdomen: soft and nontender Extremities:: deformities Decubitus:: improved Tracheostomy:: to blow by Feeding per:: G tube Complaints:: none ASSESSMENT & PLAN Assessment: Pt. has certainly been awake and eye tracking some, does extend his left hand when offered a hand shake Diagnosis and treatment reviewed. All else stable, pt fully dependent for care. I had a detailed converiisation with pt's about his status and prognostic outlooks and explained in detail all her questions to which she was thankful even though more saddened by the reality of his condition and unpromising expectations. He shows no improvement in his chronic significant neurological deficit.No new issues Plans to take him home on hold for the time at pt's 's request for lack of resources to take good care of him at home. Recently started on Erythromycin low dose for improving GI motiliity and seems to be working as emesis now has been very infrequent. This was discussed in IDT with pts daughter over the phone. 02-23-24 Bedside meeting with pt's present along with RN and respiratory therapist and all questions answered. Family reconsidering possibility of taking pt home but now requests transfer to [facility] in [place] that would be closer to home before being able to think of arrangement for transfer home. Comfort objective achieved. Pt remains appropriate in response to simple commands but almost fully dependent for care . No pain issues. Plan: Current treatment as ongoing. . Family updated.
[2024-05-29] VITALS (9 sets, daily range): BP systolic 104–113; BP diastolic 57–72; PULSE 42–76; RESP 16–22; TEMP 36.1–37; O2SAT 97–100
[2024-05-29] MEDS: IPRATROPIUM/ALBUTEROL 3 ML AMPUL.NEB INH ×4 (00:30→16:30)
[2024-05-29] MEDS: ERYTHROMYCIN ETHYLSUCCINATE 200 MG/5 ML ML 100 MG GT ×3 (05:32→21:00)
[2024-05-29] MEDS: SENNOSIDES 8.6 MG TABLET GT ×2 (08:08→21:00)
[2024-05-29] MEDS: FAMOTIDINE 20 MG TABLET GT ×2 (08:08→21:00)
[2024-05-29] MEDS: FUROSEMIDE 20 MG TABLET GT (08:08)
[2024-05-29] MEDS: DEX/HYPRO/GLY ARTIFICAL TEARS 225 DROP/15 ML BTL BOTH EYES (08:08)
[2024-05-29] MEDS: INSULIN GLARGINE 100 UNIT/ML INSULN.PEN 14 UNIT SC (18:01)
[2024-05-29] MEDS: DOXAZOSIN 2 MG TABLET 4 MG GT (21:00)
[2024-05-29] MEDS: ONDANSETRON HCL 4 MG TABLET GT (21:05)
[2024-05-30] VITALS (9 sets, daily range): BP systolic 107–146; BP diastolic 68–80; PULSE 50–75; RESP 16–20; TEMP 36.2–36.7; O2SAT 96–100
[2024-05-30] MEDS: IPRATROPIUM/ALBUTEROL 3 ML AMPUL.NEB INH ×4 (00:15→18:27)
[2024-05-30] MEDS: ERYTHROMYCIN ETHYLSUCCINATE 200 MG/5 ML ML 100 MG GT ×3 (05:44→21:24)
[2024-05-30] MEDS: AMLODIPINE 5 MG TABLET 2.5 MG GT (08:08)
[2024-05-30] MEDS: FUROSEMIDE 20 MG TABLET GT (08:09)
[2024-05-30] MEDS: FAMOTIDINE 20 MG TABLET GT ×2 (08:09→21:24)
[2024-05-30] MEDS: DEX/HYPRO/GLY ARTIFICAL TEARS 225 DROP/15 ML BTL BOTH EYES (08:09)
[2024-05-30] MEDS: SENNOSIDES 8.6 MG TABLET GT ×2 (08:09→21:24)
[2024-05-30] MEDS: INSULIN GLARGINE 100 UNIT/ML INSULN.PEN 14 UNIT SC (17:10)
[2024-05-30] MEDS: DOXAZOSIN 2 MG TABLET 4 MG GT (21:24)
[2024-05-31] VITALS (9 sets, daily range): BP systolic 105–129; BP diastolic 68–81; PULSE 64–77; RESP 16–18; TEMP 36.3–36.4; O2SAT 98–100
[2024-05-31] MEDS: IPRATROPIUM/ALBUTEROL 3 ML AMPUL.NEB INH ×4 (01:36→22:05)
[2024-05-31] MEDS: ERYTHROMYCIN ETHYLSUCCINATE 200 MG/5 ML ML 100 MG GT ×3 (05:58→21:10)
[2024-05-31] MEDS: AMLODIPINE 5 MG TABLET 2.5 MG GT (08:14)
[2024-05-31] MEDS: DEX/HYPRO/GLY ARTIFICAL TEARS 225 DROP/15 ML BTL BOTH EYES (08:14)
[2024-05-31] MEDS: FAMOTIDINE 20 MG TABLET GT ×2 (08:14→20:42)
[2024-05-31] MEDS: FUROSEMIDE 20 MG TABLET GT (08:14)
[2024-05-31] MEDS: SENNOSIDES 8.6 MG TABLET GT ×2 (08:15→20:42)
[2024-05-31] MEDS: INSULIN GLARGINE 100 UNIT/ML INSULN.PEN 14 UNIT SC (17:44)
[2024-05-31] MEDS: DOXAZOSIN 2 MG TABLET 4 MG GT (20:41)
[2024-06-01] VITALS (9 sets, daily range): BP systolic 96–140; BP diastolic 58–83; PULSE 64–78; RESP 18–20; TEMP 36.1–36.7; O2SAT 96–99
[2024-06-01] MEDS: IPRATROPIUM/ALBUTEROL 3 ML AMPUL.NEB INH ×4 (02:15→18:40)
[2024-06-01] MEDS: ERYTHROMYCIN ETHYLSUCCINATE 200 MG/5 ML ML 100 MG GT ×3 (05:53→21:55)
[2024-06-01] MEDS: AMLODIPINE 5 MG TABLET 2.5 MG GT (09:15)
[2024-06-01] MEDS: DEX/HYPRO/GLY ARTIFICAL TEARS 225 DROP/15 ML BTL BOTH EYES (09:16)
[2024-06-01] MEDS: SENNOSIDES 8.6 MG TABLET GT ×2 (09:16→20:42)
[2024-06-01] MEDS: FUROSEMIDE 20 MG TABLET GT (09:16)
[2024-06-01] MEDS: FAMOTIDINE 20 MG TABLET GT ×2 (09:16→20:42)
--- NOTE | 2024-06-01 11:11 | ESPR_ITS ---
Progress Note - SubAcute DIAGNOSIS (1) Aneurysmal subarachnoid hemorrhage: Status: Chronic (2) DM type 2, goal HbA1c < 9%: Status: Chronic (3) Chronic respiratory failure: Status: Chronic (4) Tracheostomy in place: Status: Chronic (5) PEG (percutaneous endoscopic gastrostomy) status: Status: Chronic (6) Essential (primary) hypertension: Status: Acute SUBJECTIVE Fever:: none Shortness of Breath:: none GI:: no complaints Pain:: none OBJECTIVE Most recent vital signs: Last Vital Signs Temp 97.0 F 06/01/24 06:00 Pulse 78 06/01/24 09:15 Resp 18 06/01/24 06:40 BP 109/67 06/01/24 09:15 Pulse Ox 99 06/01/24 06:40 O2 Del Method Blow-by 06/01/24 06:00 O2 Flow Rate 6 06/01/24 06:40 FiO2 28 06/01/24 06:40 Neurological:: alert (responds to simple commands, shakes hands with his left) Speech:: none Answers questions:: no Respiratory:: shallow breathing Cardiovascular: RRR Abdomen: soft and nontender Extremities:: deformities Decubitus:: improved Tracheostomy:: to blow by Feeding per:: G tube Complaints:: none ASSESSMENT & PLAN Assessment: Pt. has certainly been awake and eye tracking some, does extend his left hand when offered a hand shake Diagnosis and treatment reviewed. All else stable, pt fully dependent for care. I had a detailed converiisation with pt's about his status and prognostic outlooks and explained in detail all her questions to which she was thankful even though more saddened by the reality of his condition and unpromising expectations. He shows no improvement in his chronic significant neurological deficit.No new issues Plans to take him home on hold for the time at pt's 's request for lack of resources to take good care of him at home. Recently started on Erythromycin low dose for improving GI motiliity and seems to be working as emesis now has been very infrequent. This was discussed in IDT with pts daughter over the phone. 02-23-24 Bedside meeting with pt's present along with RN and respiratory therapist and all questions answered. Family reconsidering possibility of taking pt home but now requests transfer to [facility] in [place] that would be closer to home before being able to think of arrangement for transfer home. Comfort objective achieved. Pt remains appropriate in response to simple commands but almost fully dependent for care . No pain issues. VSS Plan: Current treatment as ongoing. . Family updated.
[2024-06-01] MEDS: ACETAMINOPHEN 325 MG TABLET 650 MG GT (12:00)
[2024-06-01] MEDS: INSULIN GLARGINE 100 UNIT/ML INSULN.PEN 14 UNIT SC (17:48)
[2024-06-01] MEDS: DOXAZOSIN 2 MG TABLET 4 MG GT (20:42)
[2024-06-02] VITALS (9 sets, daily range): BP systolic 114–134; BP diastolic 67–80; PULSE 59–74; RESP 16–20; TEMP 36.3–36.6; O2SAT 93–99
[2024-06-02] MEDS: IPRATROPIUM/ALBUTEROL 3 ML AMPUL.NEB INH ×4 (01:30→19:00)
[2024-06-02] MEDS: DEX/HYPRO/GLY ARTIFICAL TEARS 225 DROP/15 ML BTL BOTH EYES (08:46)
[2024-06-02] MEDS: FUROSEMIDE 20 MG TABLET GT (08:46)
[2024-06-02] MEDS: SENNOSIDES 8.6 MG TABLET GT ×2 (08:46→20:51)
[2024-06-02] MEDS: FAMOTIDINE 20 MG TABLET GT ×2 (08:46→20:51)
[2024-06-02] MEDS: INSULIN GLARGINE 100 UNIT/ML INSULN.PEN 14 UNIT SC (17:36)
[2024-06-02] MEDS: DOXAZOSIN 2 MG TABLET 4 MG GT (20:50)
[2024-06-03] VITALS (8 sets, daily range): BP systolic 102–150; BP diastolic 68–85; PULSE 52–79; RESP 16–21; TEMP 36.1–36.9; O2SAT 96–99
[2024-06-03] MEDS: IPRATROPIUM/ALBUTEROL 3 ML AMPUL.NEB INH ×4 (00:03→18:45)
[2024-06-03] MEDS: ERYTHROMYCIN ETHYLSUCCINATE 200 MG/5 ML ML 100 MG GT ×3 (05:35→21:15)
[2024-06-03] MEDS: INSULIN REGULAR, HUMAN 100 UNIT/ML VIAL SC (05:35)
[2024-06-03] MEDS: AMLODIPINE 5 MG TABLET 2.5 MG GT (09:24)
[2024-06-03] MEDS: FUROSEMIDE 20 MG TABLET GT (09:25)
[2024-06-03] MEDS: FAMOTIDINE 20 MG TABLET GT ×2 (09:25→20:24)
[2024-06-03] MEDS: SENNOSIDES 8.6 MG TABLET GT ×2 (09:25→20:24)
[2024-06-03] MEDS: DEX/HYPRO/GLY ARTIFICAL TEARS 225 DROP/15 ML BTL BOTH EYES (09:25)
[2024-06-03] MEDS: INSULIN GLARGINE 100 UNIT/ML INSULN.PEN 14 UNIT SC (17:27)
[2024-06-03] MEDS: DOXAZOSIN 2 MG TABLET 4 MG GT (20:23)
--- NOTE | 2024-06-03 21:00 | PC.NURSE ---
RESIDENT GASTRIC RESIDUAL 300ML. HELD TF FOR ONE HOUR. AFTER ONE HOUR, GASTRIC RESIDUAL 220. RESIDENT NO COMPLAINT OF DISCOMFORT. CONTINUE TO MONITOR.
[2024-06-04] VITALS (9 sets, daily range): BP systolic 94–124; BP diastolic 57–74; PULSE 65–81; RESP 18–19; TEMP 36.3–36.9; O2SAT 97–100
[2024-06-04] MEDS: IPRATROPIUM/ALBUTEROL 3 ML AMPUL.NEB INH ×4 (00:03→18:12)
[2024-06-04] MEDS: ONDANSETRON HCL 4 MG TABLET GT (04:12)
[2024-06-04] MEDS: ERYTHROMYCIN ETHYLSUCCINATE 200 MG/5 ML ML 100 MG GT ×3 (05:31→21:22)
[2024-06-04] MEDS: DEX/HYPRO/GLY ARTIFICAL TEARS 225 DROP/15 ML BTL BOTH EYES (08:10)
[2024-06-04] MEDS: FUROSEMIDE 20 MG TABLET GT (08:10)
[2024-06-04] MEDS: SENNOSIDES 8.6 MG TABLET GT ×2 (08:10→21:22)
[2024-06-04] MEDS: FAMOTIDINE 20 MG TABLET GT ×2 (08:10→21:22)
--- NOTE | 2024-06-04 15:28 | PC.SS ---
Room Visit: Resident remains in current care with no changes in care or condition. Remains on blow by with trach in place and GT for medication and nutrition. Resident is unable to make needs known, resident is represented by his . Resident will remain in current care and will continue to have all subacute care needs met by staff. No changes in mood and behavior.
[2024-06-04] MEDS: INSULIN GLARGINE 100 UNIT/ML INSULN.PEN 14 UNIT SC (17:32)
[2024-06-04] MEDS: DOXAZOSIN 2 MG TABLET 4 MG GT (21:21)
[2024-06-05] VITALS (9 sets, daily range): BP systolic 101–114; BP diastolic 69–76; PULSE 65–77; RESP 18–20; TEMP 36.3–36.4; O2SAT 97–99
[2024-06-05] MEDS: IPRATROPIUM/ALBUTEROL 3 ML AMPUL.NEB INH ×4 (00:30→18:13)
[2024-06-05] MEDS: ERYTHROMYCIN ETHYLSUCCINATE 200 MG/5 ML ML 100 MG GT ×3 (05:40→21:10)
[2024-06-05] MEDS: SENNOSIDES 8.6 MG TABLET GT ×2 (09:32→20:51)
[2024-06-05] MEDS: FUROSEMIDE 20 MG TABLET GT (09:32)
[2024-06-05] MEDS: DEX/HYPRO/GLY ARTIFICAL TEARS 225 DROP/15 ML BTL BOTH EYES (09:32)
[2024-06-05] MEDS: FAMOTIDINE 20 MG TABLET GT ×2 (09:32→20:50)
[2024-06-05] MEDS: ACETAMINOPHEN 325 MG TABLET 650 MG GT (09:33)
[2024-06-05] MEDS: INSULIN GLARGINE 100 UNIT/ML INSULN.PEN 14 UNIT SC (17:29)
--- NOTE | 2024-06-05 17:55 | ESPR_ITS ---
Progress Note - SubAcute DIAGNOSIS (1) Aneurysmal subarachnoid hemorrhage: Status: Chronic (2) DM type 2, goal HbA1c < 9%: Status: Chronic (3) Chronic respiratory failure: Status: Chronic (4) Tracheostomy in place: Status: Chronic (5) PEG (percutaneous endoscopic gastrostomy) status: Status: Chronic (6) Essential (primary) hypertension: Status: Acute SUBJECTIVE Fever:: none Shortness of Breath:: none GI:: no complaints Pain:: none OBJECTIVE Most recent vital signs: Last Vital Signs Temp 97.5 F 06/07/24 16:57 Pulse 68 06/07/24 16:57 Resp 17 06/07/24 16:57 BP 124/74 06/07/24 16:57 Pulse Ox 97 06/07/24 16:57 O2 Del Method Blow-by 06/07/24 16:57 O2 Flow Rate 6 06/07/24 12:05 FiO2 28 06/07/24 12:05 Neurological:: alert (responds to simple commands, shakes hands with his left) Speech:: none Answers questions:: no Respiratory:: shallow breathing Cardiovascular: RRR Abdomen: soft and nontender Extremities:: deformities Decubitus:: improved Tracheostomy:: to blow by Feeding per:: G tube Complaints:: none ASSESSMENT & PLAN Assessment: Pt. has certainly been awake and eye tracking some, does extend his left hand when offered a hand shake Diagnosis and treatment reviewed. All else stable, pt fully dependent for care. I had a detailed converiisation with pt's about his status and prognostic outlooks and explained in detail all her questions to which she was thankful even though more saddened by the reality of his condition and unpromising expectations. He shows no improvement in his chronic significant neurological deficit.No new issues Plans to take him home on hold for the time at pt's 's request for lack of resources to take good care of him at home. Recently started on Erythromycin low dose for improving GI motiliity and seems to be working as emesis now has been very infrequent. This was discussed in IDT with pts daughter over the phone. 02-23-24 Bedside meeting with pt's present along with RN and respiratory therapist and all questions answered. Family reconsidering possibility of taking pt home but now requests transfer to [facility] in [place] that would be closer to home before being able to think of arrangement for transfer home. Comfort objective achieved. Pt remains appropriate in response to simple commands but almost fully dependent for care . No pain issues. VSS Plan: Current treatment as ongoing. . Family updated.
[2024-06-06] VITALS (7 sets, daily range): BP systolic 109–128; BP diastolic 63–82; PULSE 65–76; RESP 18–20; TEMP 36.4–36.6; O2SAT 96–98
[2024-06-06] MEDS: IPRATROPIUM/ALBUTEROL 3 ML AMPUL.NEB INH ×4 (01:09→18:10)
[2024-06-06] MEDS: ERYTHROMYCIN ETHYLSUCCINATE 200 MG/5 ML ML 100 MG GT ×3 (05:17→21:26)
[2024-06-06] MEDS: FUROSEMIDE 20 MG TABLET GT (08:18)
[2024-06-06] MEDS: DEX/HYPRO/GLY ARTIFICAL TEARS 225 DROP/15 ML BTL BOTH EYES (08:18)
[2024-06-06] MEDS: SENNOSIDES 8.6 MG TABLET GT ×2 (08:18→21:26)
[2024-06-06] MEDS: FAMOTIDINE 20 MG TABLET GT ×2 (08:18→21:26)
[2024-06-06] MEDS: INSULIN GLARGINE 100 UNIT/ML INSULN.PEN 14 UNIT SC (17:30)
[2024-06-06] MEDS: DOXAZOSIN 2 MG TABLET 4 MG GT (21:26)
[2024-06-07] VITALS (8 sets, daily range): BP systolic 106–124; BP diastolic 67–74; PULSE 61–78; RESP 17–20; TEMP 36.1–36.4; O2SAT 97–99
[2024-06-07] MEDS: IPRATROPIUM/ALBUTEROL 3 ML AMPUL.NEB INH ×4 (00:35→19:10)
[2024-06-07] MEDS: ERYTHROMYCIN ETHYLSUCCINATE 200 MG/5 ML ML 100 MG GT ×3 (05:37→21:30)
[2024-06-07] MEDS: AMLODIPINE 5 MG TABLET 2.5 MG GT (08:10)
[2024-06-07] MEDS: DEX/HYPRO/GLY ARTIFICAL TEARS 225 DROP/15 ML BTL BOTH EYES (08:11)
[2024-06-07] MEDS: FAMOTIDINE 20 MG TABLET GT ×2 (08:11→21:29)
[2024-06-07] MEDS: FUROSEMIDE 20 MG TABLET GT (08:11)
[2024-06-07] MEDS: SENNOSIDES 8.6 MG TABLET GT ×2 (08:11→21:29)
--- NOTE | 2024-06-07 14:31 | PC.SS ---
Resident seen by DDS for full mouth x-rays, resident tolerated well. Resident to continue to be seen by DDS for routine dental exams.
[2024-06-07] MEDS: INSULIN GLARGINE 100 UNIT/ML INSULN.PEN 14 UNIT SC (17:34)
[2024-06-07] MEDS: DOXAZOSIN 2 MG TABLET 4 MG GT (21:29)
[2024-06-08] VITALS (9 sets, daily range): BP systolic 98–123; BP diastolic 63–75; PULSE 61–77; RESP 16–20; TEMP 36.3–36.7; O2SAT 98–99
[2024-06-08] MEDS: IPRATROPIUM/ALBUTEROL 3 ML AMPUL.NEB INH ×4 (00:45→18:50)
[2024-06-08] MEDS: ERYTHROMYCIN ETHYLSUCCINATE 200 MG/5 ML ML 100 MG GT ×3 (05:37→21:00)
[2024-06-08] MEDS: ONDANSETRON HCL 4 MG TABLET GT (08:59)
[2024-06-08] MEDS: SENNOSIDES 8.6 MG TABLET GT ×2 (08:59→21:00)
[2024-06-08] MEDS: DEX/HYPRO/GLY ARTIFICAL TEARS 225 DROP/15 ML BTL BOTH EYES (08:59)
[2024-06-08] MEDS: FAMOTIDINE 20 MG TABLET GT ×2 (08:59→20:43)
[2024-06-08] MEDS: ACETAMINOPHEN 325 MG TABLET 650 MG GT (08:59)
[2024-06-08] MEDS: FUROSEMIDE 20 MG TABLET GT (08:59)
--- NOTE | 2024-06-08 16:42 | ESPR_ITS ---
Progress Note - SubAcute DIAGNOSIS (1) Aneurysmal subarachnoid hemorrhage: Status: Chronic (2) DM type 2, goal HbA1c < 9%: Status: Chronic (3) Chronic respiratory failure: Status: Chronic (4) Tracheostomy in place: Status: Chronic (5) PEG (percutaneous endoscopic gastrostomy) status: Status: Chronic (6) Essential (primary) hypertension: Status: Acute SUBJECTIVE Fever:: none Shortness of Breath:: none GI:: no complaints Pain:: none OBJECTIVE Most recent vital signs: Last Vital Signs Temp 98.0 F 06/08/24 12:00 Pulse 71 06/08/24 12:05 Resp 18 06/08/24 12:05 BP 121/75 06/08/24 12:00 Pulse Ox 99 06/08/24 12:05 O2 Del Method Blow-by 06/07/24 16:57 O2 Flow Rate 6 06/08/24 12:05 FiO2 28 06/08/24 12:05 Neurological:: alert (responds to simple commands, shakes hands with his left) Speech:: none Answers questions:: no Respiratory:: shallow breathing Cardiovascular: RRR Abdomen: soft and nontender Extremities:: deformities Decubitus:: improved Tracheostomy:: to blow by Feeding per:: G tube Complaints:: none ASSESSMENT & PLAN Assessment: Pt. has certainly been awake and eye tracking some, does extend his left hand when offered a hand shake Diagnosis and treatment reviewed. All else stable, pt fully dependent for care. I had a detailed converiisation with pt's about his status and prognostic outlooks and explained in detail all her questions to which she was thankful even though more saddened by the reality of his condition and unpromising expectations. He shows no improvement in his chronic significant neurological deficit.No new issues Plans to take him home on hold for the time at pt's 's request for lack of resources to take good care of him at home. Recently started on Erythromycin low dose for improving GI motiliity and seems to be working as emesis now has been very infrequent. This was discussed in IDT with pts daughter over the phone. 02-23-24 Bedside meeting with pt's present along with RN and respiratory therapist and all questions answered. Family reconsidering possibility of taking pt home but now requests transfer to [facility] in [place] that would be closer to home before being able to think of arrangement for transfer home. Comfort objective achieved. Pt remains appropriate in response to simple commands but almost fully dependent for care . No pain issues. VSS Plan: Current treatment as ongoing. . Family updated.
[2024-06-08] MEDS: INSULIN GLARGINE 100 UNIT/ML INSULN.PEN 14 UNIT SC (17:14)
[2024-06-08] MEDS: DOXAZOSIN 2 MG TABLET 4 MG GT (20:43)
[2024-06-09] VITALS (9 sets, daily range): BP systolic 102–119; BP diastolic 67–74; PULSE 65–84; RESP 16–20; TEMP 35.8–36.9; O2SAT 97–99
[2024-06-09] MEDS: IPRATROPIUM/ALBUTEROL 3 ML AMPUL.NEB INH ×4 (01:55→19:28)
[2024-06-09] MEDS: ERYTHROMYCIN ETHYLSUCCINATE 200 MG/5 ML ML 100 MG GT ×3 (05:34→22:47)
[2024-06-09 07:47] LABS: Basophils # (Auto) 0.1 Thou/mm3 (0.0-0.2); Basophils % (Auto) 1 % (0-2.5); Eosinophils # (Auto) 0.3 Thou/mm3 (0.0-0.5); Eosinophils % (Auto) 2 % (0-10); Hematocrit 35.3 % (41.0-53.0); Hemoglobin 11.7 g/dL (13.5-16.0); Immature Granulocytes % (Auto) 0 % (0-0); Immature Granulocytes Auto 0.02 Thou/mm3 (0.00-0.00); Lymphocytes # (Auto) 2.5 Thou/mm3 (1.0-4.8); Lymphocytes % (Auto) 22 % (10-50); Mean Corpuscular HGB Conc 33.1 g/dl (31.0-37.0); Mean Corpuscular Hemoglobin 29.2 pg (25.0-35.0); Mean Corpuscular Volume 88 fL (80-100); Monocytes # (Auto) 1.2 Thou/mm3 (0.0-0.8); Monocytes % (Auto) 11 % (0-12); Neutrophils # (Auto) 7.4 Thou/mm3 (1.8-7.7); Neutrophils % (Auto) 64 % (37-80); Nucleated Red Blood Cell % 0 /100 WBC (0); Platelet Count 325 Thou/mm3 (140-440); RDW Standard Deviation 44.4 fL (35.1-43.9); Red Blood Count 4.01 Miln/mm3 (4.50-5.90); White Blood Count 11.5 Thou/mm3 (3.8-10.6)
[2024-06-09 08:05] LABS: Glucose Estimated Average 100 mg/dL (80-131); Hemoglobin A1C 5.1 % Hgb (4.8-6.0)
[2024-06-09 08:25] LABS: Alanine Aminotransferase 64 U/L (10-49); Albumin, Serum 3.9 gm/dL (3.4-4.8); Albumin/Globulin Ratio 1.2 (1.2-2.2); Alkaline Phosphatase 190 U/L (46-116); Anion Gap 7 (7-16); Aspartate Amino Transferase 34 U/L (0-34); BUN/Creatinine Ratio 30 Ratio (12-20); Bilirubin,Total 0.7 mg/dL (0.3-1.2); Blood Urea Nitrogen 18 mg/dL (9-23); Calcium 9.5 mg/dL (8.3-10.6); Calcium (Corrected) 9.6 mg/dL (8.5-10.1); Carbon Dioxide 31.1 mMol/L (20.0-31.0); Chloride 99 mMol/L (98-107); Creatinine (Component) 0.6 mg/dL (0.6-1.3); Estimated Creatinine Clearance 115.2 mL/min (>60); Globulin 3.3 gm/dL (2.3-3.5); Glucose 101 mg/dL (74-106); Glucose,Fasting 101 mg/dL (74-106); Osmolality,Calculated 275 (275-295); Potassium 4.2 mMol/L (3.4-5.1); Sodium 137 mMol/L (136-145); Total Protein 7.2 gm/dL (5.7-8.2); eGFR > 60 See Note
[2024-06-09] MEDS: FAMOTIDINE 20 MG TABLET GT ×2 (09:30→20:28)
[2024-06-09] MEDS: AMLODIPINE 5 MG TABLET 2.5 MG GT (09:30)
[2024-06-09] MEDS: DEX/HYPRO/GLY ARTIFICAL TEARS 225 DROP/15 ML BTL BOTH EYES (09:30)
[2024-06-09] MEDS: SENNOSIDES 8.6 MG TABLET GT ×2 (09:35→20:28)
[2024-06-09] MEDS: FUROSEMIDE 20 MG TABLET GT (09:35)
--- NOTE | 2024-06-09 17:23 | PC.NURSE ---
Addendum entered by Dana Poole RN 06/09/24 17:27: pharmacy to review resident's medicines for possible increase cause of liver enzymes Original Note: Spoke with Dr Diaz and made him aware of the results, with ALT/SGPT of 64 and alkaline phosphatase pf 190, with order received to do Liver panel in 2 days. No new orders received for the CBC results, with elevated WBC of 11.5. Resident remains stable.
[2024-06-09] MEDS: INSULIN GLARGINE 100 UNIT/ML INSULN.PEN 14 UNIT SC (17:41)
[2024-06-09] MEDS: DOXAZOSIN 2 MG TABLET 4 MG GT (20:28)
[2024-06-10] VITALS (10 sets, daily range): BP systolic 105–125; BP diastolic 65–78; PULSE 55–79; RESP 16–20; TEMP 36.6; O2SAT 97–100
[2024-06-10] MEDS: IPRATROPIUM/ALBUTEROL 3 ML AMPUL.NEB INH ×4 (01:44→19:40)
[2024-06-10] MEDS: ERYTHROMYCIN ETHYLSUCCINATE 200 MG/5 ML ML 100 MG GT ×3 (05:49→21:35)
[2024-06-10] MEDS: DEX/HYPRO/GLY ARTIFICAL TEARS 225 DROP/15 ML BTL BOTH EYES (07:54)
[2024-06-10] MEDS: FAMOTIDINE 20 MG TABLET GT ×2 (07:54→20:13)
[2024-06-10] MEDS: FUROSEMIDE 20 MG TABLET GT (07:54)
[2024-06-10] MEDS: SENNOSIDES 8.6 MG TABLET GT ×2 (07:55→20:13)
[2024-06-10] MEDS: INSULIN GLARGINE 100 UNIT/ML INSULN.PEN 14 UNIT SC (17:31)
[2024-06-10] MEDS: DOXAZOSIN 2 MG TABLET 4 MG GT (20:12)
[2024-06-11] VITALS (11 sets, daily range): BP systolic 96–145; BP diastolic 60–76; PULSE 63–83; RESP 16–20; TEMP 36.1–36.6; O2SAT 96–100
[2024-06-11] MEDS: IPRATROPIUM/ALBUTEROL 3 ML AMPUL.NEB INH ×4 (01:34→19:42)
[2024-06-11] MEDS: ERYTHROMYCIN ETHYLSUCCINATE 200 MG/5 ML ML 100 MG GT ×3 (05:09→21:06)
[2024-06-11 06:33] LABS: Alanine Aminotransferase 63 U/L (10-49); Alkaline Phosphatase 185 U/L (46-116); Aspartate Amino Transferase 37 U/L (0-34); Bilirubin,Direct 0.2 mg/dL (0.0-0.3); Bilirubin,Total 0.6 mg/dL (0.3-1.2); Total Protein 7.4 gm/dL (5.7-8.2)
[2024-06-11] MEDS: AMLODIPINE 5 MG TABLET 2.5 MG GT (09:57)
[2024-06-11] MEDS: FUROSEMIDE 20 MG TABLET GT (09:58)
[2024-06-11] MEDS: DEX/HYPRO/GLY ARTIFICAL TEARS 225 DROP/15 ML BTL BOTH EYES (09:58)
[2024-06-11] MEDS: SENNOSIDES 8.6 MG TABLET GT ×2 (09:58→21:05)
[2024-06-11] MEDS: FAMOTIDINE 20 MG TABLET GT ×2 (09:58→21:05)
[2024-06-11] MEDS: INSULIN GLARGINE 100 UNIT/ML INSULN.PEN 14 UNIT SC (16:52)
--- NOTE | 2024-06-11 17:30 | PC.NURSE ---
Spoke with Dr Diaz today and reviewed resident's liver panel results with new order received to repeat lab in one week.
[2024-06-11] MEDS: DOXAZOSIN 2 MG TABLET 4 MG GT (21:05)
--- NOTE | 2024-06-11 21:58 | XR_ITS ---
Examination: Testicular sonography complete Technique: Fowler scale multiple sonographic images testes, assessment arterial inflow venous outflow Doppler spectral analysis, flow analysis Exam date and time: June 11, 2024 1045 hrs. Indications: Leaking from the left scrotum testicle today discharge Findings: Right testis 3.0 x 2.0 x 2.9 cm Epididymis 11 mm Arterial flow testicle. No testicular mass Left testis 3.2 x 2.4 x 2.7 cm Epididymis 11 mm 3 mm left epididymal cyst Arterial flow testicle No testicular mass Solid masses outside the left testicle 2.1 x 1.8 x 1.8 cm in the scrotal sac and in the left groin 3.4 x 1.4 x 2.1 cm Impression: No testicular torsion or testicular mass Small benign left epididymal cyst Solid mass outside the left testicle within the scrotal sac 2.1 x 1.8 x 1.8 cm which may represent small scrotal abscess Left groin hypoechoic area which may represent infectious mass 3.4 x 1.4 x 2.[address] pelvis post intravenous contrast follow-up
--- NOTE | 2024-06-11 22:02 | PC.NURSE ---
Addendum entered by Nikia Mercer RN 06/11/24 22:10: Discussed with MD recommendation from Pharmacy that Erythromycin has adverse reaction of Hepatic dysfunction, resident liver enzymes are elevated, new order to stop Erythromycin at this time Original Note: Was called into the room by staff for purulent draining noted to area on left testicle, mild redness noted, firm to touch. Notified Dr Diaz who ordered culture to possible abscess and repeat testicular ultrasound. Previous ultrasound in December 2023 showed no abscess but Epididymitis. Resident nods head yes when asked if area is painful to touch, area was cleaned and C/S obtained and sent to lab, will continue to monitor, call light is within reach.
[2024-06-12] VITALS (8 sets, daily range): BP systolic 102–124; BP diastolic 61–69; PULSE 62–89; RESP 18–20; TEMP 36.2–36.9; O2SAT 95–99
[2024-06-12] MEDS: IPRATROPIUM/ALBUTEROL 3 ML AMPUL.NEB INH ×4 (01:08→18:28)
[2024-06-12] MEDS: AMLODIPINE 5 MG TABLET 2.5 MG GT (08:53)
[2024-06-12] MEDS: DEX/HYPRO/GLY ARTIFICAL TEARS 225 DROP/15 ML BTL BOTH EYES (08:53)
[2024-06-12] MEDS: SENNOSIDES 8.6 MG TABLET GT ×2 (08:54→20:39)
[2024-06-12] MEDS: FAMOTIDINE 20 MG TABLET GT ×2 (08:54→20:39)
[2024-06-12] MEDS: FUROSEMIDE 20 MG TABLET GT (08:54)
--- NOTE | 2024-06-12 09:06 | PC.NURSE ---
Addendum entered by Dana Poole RN 06/12/24 16:29: Notiifed resident's Harper about the abscess and the order for consult and appreciate much the call. Addendum entered by Dana Poole RN 06/12/24 10:00: Called Dr Estes and he said to call and remind him on Friday. Dr Diaz made aware. Addendum entered by Dana Poole RN 06/12/24 09:13: Dr Diaz aware of the gram stain result to left scrotum wound . Resident remains afebrile at this time. Original Note: Called Dr Diaz and verbally reported resident's left scrotum US result with order received to consult Dr Estes
[2024-06-12] MEDS: INSULIN REGULAR, HUMAN 100 UNIT/ML VIAL SC (17:33)
[2024-06-12] MEDS: INSULIN GLARGINE 100 UNIT/ML INSULN.PEN 14 UNIT SC (17:33)
--- NOTE | 2024-06-12 19:06 | ESPR_ITS ---
Progress Note - SubAcute DIAGNOSIS (1) Aneurysmal subarachnoid hemorrhage: Status: Chronic (2) DM type 2, goal HbA1c < 9%: Status: Chronic (3) Chronic respiratory failure: Status: Chronic (4) Tracheostomy in place: Status: Chronic (5) PEG (percutaneous endoscopic gastrostomy) status: Status: Chronic (6) Essential (primary) hypertension: Status: Acute SUBJECTIVE Fever:: none Shortness of Breath:: none GI:: no complaints Pain:: none OBJECTIVE Most recent vital signs: Last Vital Signs Temp 98.4 F 06/12/24 18:00 Pulse 89 06/12/24 18:00 Resp 19 06/12/24 18:00 BP 102/61 06/12/24 18:00 Pulse Ox 99 06/12/24 12:05 O2 Del Method Blow-by 06/12/24 05:50 O2 Flow Rate 6 06/12/24 12:05 FiO2 28 06/12/24 12:05 Neurological:: alert (responds to simple commands, shakes hands with his left) Speech:: none Answers questions:: no Respiratory:: shallow breathing Cardiovascular: RRR Abdomen: soft and nontender Extremities:: deformities Decubitus:: improved Tracheostomy:: to blow by Feeding per:: G tube Complaints:: none ASSESSMENT & PLAN Assessment: Pt. has certainly been awake and eye tracking some, does extend his left hand when offered a hand shake Diagnosis and treatment reviewed. All else stable, pt fully dependent for care. I had a detailed converiisation with pt's about his status and prognostic outlooks and explained in detail all her questions to which she was thankful even though more saddened by the reality of his condition and unpromising expectations. He shows no improvement in his chronic significant neurological deficit.No new issues Plans to take him home on hold for the time at pt's 's request for lack of resources to take good care of him at home. Recently started on Erythromycin low dose for improving GI motiliity and seems to be working as emesis now has been very infrequent. This was discussed in IDT with pts daughter over the phone. 02-23-24 Bedside meeting with pt's present along with RN and respiratory therapist and all questions answered. Family reconsidering possibility of taking pt home but now requests transfer to [facility] in [place] that would be closer to home before being able to think of arrangement for transfer home. Comfort objective achieved. Pt remains appropriate in response to simple commands but almost fully dependent for care . No pain issues. VSS Noticed to have discharge from scrotum which showed no wbc/bacteria. Ultrasound shows possible fluid accumulation. Surgical consult requested. Pt shows no signs of infection, afebrile and comfortable with normal VS. Monitored closely. Plan: Current treatment as ongoing. . Family updated.
[2024-06-13] VITALS (8 sets, daily range): BP systolic 100–113; BP diastolic 63–75; PULSE 72–91; RESP 17–24; TEMP 36.3–36.8; O2SAT 93–99
[2024-06-13] MEDS: IPRATROPIUM/ALBUTEROL 3 ML AMPUL.NEB INH ×4 (01:26→16:15)
[2024-06-13] MEDS: INSULIN REGULAR, HUMAN 100 UNIT/ML VIAL SC ×2 (05:20→17:09)
[2024-06-13] MEDS: FUROSEMIDE 20 MG TABLET GT (08:47)
[2024-06-13] MEDS: FAMOTIDINE 20 MG TABLET GT ×2 (08:47→20:19)
[2024-06-13] MEDS: SENNOSIDES 8.6 MG TABLET GT ×2 (08:47→20:19)
[2024-06-13] MEDS: DEX/HYPRO/GLY ARTIFICAL TEARS 225 DROP/15 ML BTL BOTH EYES (08:47)
[2024-06-13] MEDS: ONDANSETRON HCL 4 MG TABLET GT (13:52)
[2024-06-13] MEDS: INSULIN GLARGINE 100 UNIT/ML INSULN.PEN 14 UNIT SC (17:08)
[2024-06-13] MEDS: DOXAZOSIN 2 MG TABLET 4 MG GT (20:19)
[2024-06-14] VITALS (9 sets, daily range): BP systolic 96–117; BP diastolic 60–75; PULSE 70–92; RESP 16–20; TEMP 36.3–36.6; O2SAT 90–99
[2024-06-14] MEDS: IPRATROPIUM/ALBUTEROL 3 ML AMPUL.NEB INH ×4 (00:31→19:30)
[2024-06-14] MEDS: AMLODIPINE 5 MG TABLET 2.5 MG GT (08:35)
[2024-06-14] MEDS: FAMOTIDINE 20 MG TABLET GT ×2 (08:36→20:40)
[2024-06-14] MEDS: SENNOSIDES 8.6 MG TABLET GT ×2 (08:36→20:40)
[2024-06-14] MEDS: FUROSEMIDE 20 MG TABLET GT (08:36)
[2024-06-14] MEDS: DEX/HYPRO/GLY ARTIFICAL TEARS 225 DROP/15 ML BTL BOTH EYES (08:36)
[2024-06-14] MEDS: ACETAMINOPHEN 325 MG TABLET 650 MG GT (11:51)
[2024-06-14] MEDS: INSULIN REGULAR, HUMAN 100 UNIT/ML VIAL SC (17:51)
[2024-06-14] MEDS: INSULIN GLARGINE 100 UNIT/ML INSULN.PEN 14 UNIT SC (17:55)
[2024-06-14] MEDS: DOXAZOSIN 2 MG TABLET 4 MG GT (20:40)
[2024-06-15] VITALS (10 sets, daily range): BP systolic 103–123; BP diastolic 65–75; PULSE 74–96; RESP 18–20; TEMP 36.2–36.7; O2SAT 95–100
[2024-06-15] MEDS: IPRATROPIUM/ALBUTEROL 3 ML AMPUL.NEB INH ×4 (00:48→18:25)
[2024-06-15] MEDS: INSULIN REGULAR, HUMAN 100 UNIT/ML VIAL SC ×2 (05:29→17:09)
[2024-06-15] MEDS: DEX/HYPRO/GLY ARTIFICAL TEARS 225 DROP/15 ML BTL BOTH EYES (08:23)
[2024-06-15] MEDS: FAMOTIDINE 20 MG TABLET GT ×2 (08:23→20:54)
[2024-06-15] MEDS: FUROSEMIDE 20 MG TABLET GT (08:23)
[2024-06-15] MEDS: AMLODIPINE 5 MG TABLET 2.5 MG GT (08:23)
[2024-06-15] MEDS: SENNOSIDES 8.6 MG TABLET GT ×2 (08:24→20:54)
--- NOTE | 2024-06-15 11:10 | PC.SS ---
This SSD spoke with resident SHANEKA Saleem who stated she was made aware there is an open bed available at preferred facility in [place]. Harper has asked to have referral sent over to [facility]. This SSD made contact with Salome Liaviviana at [facility] who did confirm to have a male bed available, Salome asked to have updated clinicals faxed over to her. This SSD sent updated clinicals via [employer] and confirmed receipt with Salome. This SSD will continue to follow up and provide Harper with updates regarding DC planning. This DC is being initiated by SHANEKA Saleem as she would like resident moved closer to home in [place]. Charge nurse and DON made aware.
[2024-06-15] MEDS: INSULIN GLARGINE 100 UNIT/ML INSULN.PEN 14 UNIT SC (17:08)
[2024-06-15] MEDS: DOXAZOSIN 2 MG TABLET 4 MG GT (20:54)
[2024-06-16] VITALS (8 sets, daily range): BP systolic 105–126; BP diastolic 66–75; PULSE 69–84; RESP 18–21; TEMP 36.1–36.8; O2SAT 94–99
[2024-06-16] MEDS: IPRATROPIUM/ALBUTEROL 3 ML AMPUL.NEB INH ×4 (00:26→18:26)
[2024-06-16] MEDS: DEX/HYPRO/GLY ARTIFICAL TEARS 225 DROP/15 ML BTL BOTH EYES (08:07)
[2024-06-16] MEDS: FAMOTIDINE 20 MG TABLET GT ×2 (08:07→20:42)
[2024-06-16] MEDS: FUROSEMIDE 20 MG TABLET GT (08:07)
[2024-06-16] MEDS: SENNOSIDES 8.6 MG TABLET GT ×2 (08:07→20:42)
--- NOTE | 2024-06-16 13:46 | PC.NURSE ---
Received results regarding Culture to left testicle. Reviewed results with Dr. Diaz.New order to start Augmentin 800mg BID x 5 days. Faxed referral to Dr. Burgess (urologist) for review. Notified Harper of new orders. resident remains stable a febrile with minimum draining of scrotal area. will continue to monitor.
[2024-06-16] MEDS: INSULIN GLARGINE 100 UNIT/ML INSULN.PEN 14 UNIT SC (17:25)
[2024-06-16] MEDS: INSULIN REGULAR, HUMAN 100 UNIT/ML VIAL SC (17:28)
[2024-06-16] MEDS: AMOX/CLAV POT 875 MG 1 EACH TABLET GT (18:00)
--- NOTE | 2024-06-16 20:37 | ESPR_ITS ---
Progress Note - SubAcute DIAGNOSIS (1) Aneurysmal subarachnoid hemorrhage: Status: Chronic (2) DM type 2, goal HbA1c < 9%: Status: Chronic (3) Chronic respiratory failure: Status: Chronic (4) Tracheostomy in place: Status: Chronic (5) PEG (percutaneous endoscopic gastrostomy) status: Status: Chronic (6) Essential (primary) hypertension: Status: Acute SUBJECTIVE Fever:: none Shortness of Breath:: none GI:: no complaints Pain:: none OBJECTIVE Most recent vital signs: Last Vital Signs Temp 98.0 F 06/16/24 17:59 Pulse 75 06/16/24 17:59 Resp 21 H 06/16/24 17:59 BP 126/75 06/16/24 17:59 Pulse Ox 94 L 06/16/24 17:59 O2 Del Method Blow-by 06/16/24 17:59 O2 Flow Rate 8 06/16/24 12:50 FiO2 30 06/16/24 12:50 Neurological:: alert (responds to simple commands, shakes hands with his left) Speech:: none Answers questions:: no Respiratory:: shallow breathing Cardiovascular: RRR Abdomen: soft and nontender Extremities:: deformities Decubitus:: improved Tracheostomy:: to blow by Feeding per:: G tube Complaints:: none ASSESSMENT & PLAN Assessment: Pt. has certainly been awake and eye tracking some, does extend his left hand when offered a hand shake Diagnosis and treatment reviewed. All else stable, pt fully dependent for care. I had a detailed converiisation with pt's about his status and prognostic outlooks and explained in detail all her questions to which she was thankful even though more saddened by the reality of his condition and unpromising expectations. He shows no improvement in his chronic significant neurological deficit.No new issues Plans to take him home on hold for the time at pt's 's request for lack of resources to take good care of him at home. Recently started on Erythromycin low dose for improving GI motiliity and seems to be working as emesis now has been very infrequent. This was discussed in IDT with pts daughter over the phone. 02-23-24 Bedside meeting with pt's present along with RN and respiratory therapist and all questions answered. Family reconsidering possibility of taking pt home but now requests transfer to [facility] in [place] that would be closer to home before being able to think of arrangement for transfer home. Comfort objective achieved. Pt remains appropriate in response to simple commands but almost fully dependent for care . No pain issues. VSS Noticed to have discharge from scrotum which showed no wbc/bacteria. Ultrasound shows possible fluid accumulation. Surgical consult requested. Pt shows no signs of infection, afebrile and comfortable with normal VS. Monitored closely. Started on Augmentin per cultures. Urology consult requested. Plan: Current treatment as ongoing. . Family updated.
[2024-06-16] MEDS: DOXAZOSIN 2 MG TABLET 4 MG GT (20:41)
[2024-06-17] VITALS (7 sets, daily range): BP systolic 108–118; BP diastolic 62–72; PULSE 65–80; RESP 16–18; TEMP 36.8; O2SAT 96–99
[2024-06-17] MEDS: IPRATROPIUM/ALBUTEROL 3 ML AMPUL.NEB INH ×4 (00:26→19:00)
[2024-06-17] MEDS: AMOX/CLAV POT 875 MG 1 EACH TABLET GT ×2 (08:56→21:34)
[2024-06-17] MEDS: AMLODIPINE 5 MG TABLET 2.5 MG GT (08:56)
[2024-06-17] MEDS: DEX/HYPRO/GLY ARTIFICAL TEARS 225 DROP/15 ML BTL BOTH EYES (08:57)
[2024-06-17] MEDS: SENNOSIDES 8.6 MG TABLET GT ×2 (08:58→21:34)
[2024-06-17] MEDS: FUROSEMIDE 20 MG TABLET GT (08:58)
[2024-06-17] MEDS: FAMOTIDINE 20 MG TABLET GT ×2 (08:58→21:34)
--- NOTE | 2024-06-17 13:44 | PC.SS ---
This SSD called [facility] and spoke with Salome to follow up on the referral sent to them. Salome stated she had sent over referral to medical office asst for review, she also stated they do not have any open beds. This SSD asked her if SHANEKA Saleem was aware because she stated she was told there was an open bed. Salome said they will sometimes say they have an open bed when they do not and resident will be put on a wait list. This SSD to update Harper.
[2024-06-17] MEDS: ACETAMINOPHEN 325 MG TABLET 650 MG GT (15:44)
[2024-06-17] MEDS: INSULIN GLARGINE 100 UNIT/ML INSULN.PEN 14 UNIT SC (17:32)
[2024-06-17] MEDS: INSULIN REGULAR, HUMAN 100 UNIT/ML VIAL SC (17:33)
[2024-06-17] MEDS: DOXAZOSIN 2 MG TABLET 4 MG GT (21:34)
[2024-06-18] VITALS (9 sets, daily range): BP systolic 107–118; BP diastolic 67–72; PULSE 65–76; RESP 17–20; TEMP 36.2–36.7; O2SAT 97–99
[2024-06-18] MEDS: IPRATROPIUM/ALBUTEROL 3 ML AMPUL.NEB INH ×4 (00:30→18:54)
[2024-06-18 05:48] LABS: Alanine Aminotransferase 23 U/L (10-49); Albumin, Serum 3.8 gm/dL (3.4-4.8); Alkaline Phosphatase 118 U/L (46-116); Aspartate Amino Transferase 20 U/L (0-34); Bilirubin,Direct 0.2 mg/dL (0.0-0.3); Bilirubin,Total 0.5 mg/dL (0.3-1.2); Total Protein 7.7 gm/dL (5.7-8.2)
--- NOTE | 2024-06-18 07:56 | PC.NURSE ---
Notified Dr Diaz of f/u liver panel results after erythromycin was discontinued, no new orders made.
[2024-06-18] MEDS: FUROSEMIDE 20 MG TABLET GT (09:05)
[2024-06-18] MEDS: FAMOTIDINE 20 MG TABLET GT ×2 (09:05→20:57)
[2024-06-18] MEDS: AMOX/CLAV POT 875 MG 1 EACH TABLET GT ×2 (09:05→20:57)
[2024-06-18] MEDS: SENNOSIDES 8.6 MG TABLET GT ×2 (09:05→20:57)
[2024-06-18] MEDS: AMLODIPINE 5 MG TABLET 2.5 MG GT (09:05)
[2024-06-18] MEDS: DEX/HYPRO/GLY ARTIFICAL TEARS 225 DROP/15 ML BTL BOTH EYES (09:05)
--- NOTE | 2024-06-18 12:13 | PC.SS ---
Room visit: Resident is laying in bed with head of the bed elevated with call light properly placed with no signs of distress. Resident is non verbal, his Harper is his decision maker. Resident has no changes in care or condition he remains on blow by with trach in place and GT for medication and nutrition. He will remain in current care and will have all subacute care needs met by staff. This SSD will continue to make daily contact with resident and monitor for changes in mood and behavior.
[2024-06-18] MEDS: INSULIN GLARGINE 100 UNIT/ML INSULN.PEN 14 UNIT SC (17:21)
[2024-06-18] MEDS: INSULIN REGULAR, HUMAN 100 UNIT/ML VIAL SC (17:22)
[2024-06-18] MEDS: DOXAZOSIN 2 MG TABLET 4 MG GT (20:57)
[2024-06-19] VITALS (9 sets, daily range): BP systolic 104–135; BP diastolic 69–88; PULSE 69–92; RESP 16–21; TEMP 36.3–36.7; O2SAT 96–100
[2024-06-19] MEDS: IPRATROPIUM/ALBUTEROL 3 ML AMPUL.NEB INH ×4 (01:00→18:12)
[2024-06-19] MEDS: SENNOSIDES 8.6 MG TABLET GT ×2 (08:53→21:17)
[2024-06-19] MEDS: FAMOTIDINE 20 MG TABLET GT ×2 (08:53→21:17)
[2024-06-19] MEDS: FUROSEMIDE 20 MG TABLET GT (08:53)
[2024-06-19] MEDS: DEX/HYPRO/GLY ARTIFICAL TEARS 225 DROP/15 ML BTL BOTH EYES (08:54)
[2024-06-19] MEDS: AMOX/CLAV POT 875 MG 1 EACH TABLET GT ×2 (08:54→21:17)
[2024-06-19] MEDS: AMLODIPINE 5 MG TABLET 2.5 MG GT (08:54)
--- NOTE | 2024-06-19 16:00 | PC.NURSE ---
Late entry for 06/18/24 Dr Diaz made rounds, no new orders made
[2024-06-19] MEDS: INSULIN GLARGINE 100 UNIT/ML INSULN.PEN 14 UNIT SC (17:47)
[2024-06-19] MEDS: INSULIN REGULAR, HUMAN 100 UNIT/ML VIAL SC (17:48)
--- NOTE | 2024-06-19 19:08 | PC.NURSE ---
Continues on ATB for testicular abscess. No adverse reactions noted. Denies pain. Warm compresses continue to site. Continue to observe
[2024-06-19] MEDS: DOXAZOSIN 2 MG TABLET 4 MG GT (21:17)
[2024-06-20] VITALS (8 sets, daily range): BP systolic 102–115; BP diastolic 66–73; PULSE 69–87; RESP 18–19; TEMP 36.2–36.7; O2SAT 96–100
[2024-06-20] MEDS: IPRATROPIUM/ALBUTEROL 3 ML AMPUL.NEB INH ×4 (00:15→18:00)
[2024-06-20] MEDS: INSULIN REGULAR, HUMAN 100 UNIT/ML VIAL SC ×2 (05:41→17:30)
[2024-06-20] MEDS: AMOX/CLAV POT 875 MG 1 EACH TABLET GT ×2 (09:07→21:06)
[2024-06-20] MEDS: FUROSEMIDE 20 MG TABLET GT (09:07)
[2024-06-20] MEDS: SENNOSIDES 8.6 MG TABLET GT ×2 (09:07→21:07)
[2024-06-20] MEDS: FAMOTIDINE 20 MG TABLET GT ×2 (09:07→21:07)
--- NOTE | 2024-06-20 09:36 | ESPR_ITS ---
Progress Note - SubAcute DIAGNOSIS (1) Aneurysmal subarachnoid hemorrhage: Status: Chronic (2) DM type 2, goal HbA1c < 9%: Status: Chronic (3) Chronic respiratory failure: Status: Chronic (4) Tracheostomy in place: Status: Chronic (5) PEG (percutaneous endoscopic gastrostomy) status: Status: Chronic (6) Essential (primary) hypertension: Status: Acute SUBJECTIVE Fever:: none Shortness of Breath:: none GI:: no complaints Pain:: none OBJECTIVE Most recent vital signs: Last Vital Signs Temp 97.3 F 06/20/24 06:00 Pulse 78 06/20/24 09:05 Resp 18 06/20/24 07:24 BP 102/68 06/20/24 09:05 Pulse Ox 98 06/20/24 07:24 O2 Del Method Blow-by 06/20/24 06:00 O2 Flow Rate 6 06/20/24 07:24 FiO2 28 06/20/24 07:24 Neurological:: alert (responds to simple commands, shakes hands with his left) Speech:: none Answers questions:: no Respiratory:: shallow breathing Cardiovascular: RRR Abdomen: soft and nontender Extremities:: deformities Decubitus:: improved Tracheostomy:: to blow by Feeding per:: G tube Complaints:: none ASSESSMENT & PLAN Assessment: Pt. has certainly been awake and eye tracking some, does extend his left hand when offered a hand shake Diagnosis and treatment reviewed. All else stable, pt fully dependent for care. I had a detailed converiisation with pt's about his status and prognostic outlooks and explained in detail all her questions to which she was thankful even though more saddened by the reality of his condition and unpromising expectations. He shows no improvement in his chronic significant neurological deficit.No new issues Plans to take him home on hold for the time at pt's 's request for lack of resources to take good care of him at home. Recently started on Erythromycin low dose for improving GI motiliity and seems to be working as emesis now has been very infrequent. This was discussed in IDT with pts daughter over the phone. 02-23-24 Bedside meeting with pt's present along with RN and respiratory therapist and all questions answered. Family reconsidering possibility of taking pt home but now requests transfer to [facility] in [place] that would be closer to home before being able to think of arrangement for transfer home. Comfort objective achieved. Pt remains appropriate in response to simple commands but almost fully dependent for care . No pain issues. VSS Noticed to have discharge from scrotum which showed no wbc/bacteria. Ultrasound shows possible fluid accumulation. Surgical consult requested. Pt shows no signs of infection, afebrile and comfortable with normal VS. Monitored closely. Started on Augmentin per cultures. Urology consult requested. Afebrile and comfortable Plan: Current treatment as ongoing. . Family updated.
[2024-06-20] MEDS: INSULIN GLARGINE 100 UNIT/ML INSULN.PEN 14 UNIT SC (17:30)
--- NOTE | 2024-06-20 18:44 | PC.NURSE ---
Resident continues on ATB Augmentin BID for testicular abscess. No adverse reactions noted. Denies pain or any discomfort. Warm compresses continue to site. Call light within reach and resting comfortably in bed.
[2024-06-20] MEDS: DOXAZOSIN 2 MG TABLET 4 MG GT (21:06)
[2024-06-21] VITALS (7 sets, daily range): BP systolic 110–123; BP diastolic 68–79; PULSE 70–78; RESP 18; TEMP 36.1–36.2; O2SAT 97–100
[2024-06-21] MEDS: IPRATROPIUM/ALBUTEROL 3 ML AMPUL.NEB INH ×4 (00:30→19:20)
[2024-06-21] MEDS: AMLODIPINE 5 MG TABLET 2.5 MG GT (08:43)
[2024-06-21] MEDS: AMOX/CLAV POT 875 MG 1 EACH TABLET GT (08:44)
[2024-06-21] MEDS: FAMOTIDINE 20 MG TABLET GT ×2 (08:44→20:57)
[2024-06-21] MEDS: SENNOSIDES 8.6 MG TABLET GT ×2 (08:44→20:57)
[2024-06-21] MEDS: FUROSEMIDE 20 MG TABLET GT (08:44)
--- NOTE | 2024-06-21 10:18 | PC.NURSE ---
Resident with an order for consult with Dr Arthur, requiring prior authorization as per SS. [place] in billing not in today, scanned and sent it to her. Will follow up with her tomorrow.
[2024-06-21] MEDS: INSULIN GLARGINE 100 UNIT/ML INSULN.PEN 14 UNIT SC (17:37)
[2024-06-21] MEDS: DOXAZOSIN 2 MG TABLET 4 MG GT (20:57)
[2024-06-22] VITALS (7 sets, daily range): BP systolic 105–116; BP diastolic 68–73; PULSE 67–81; RESP 18–20; TEMP 36.1; O2SAT 97–98
[2024-06-22] MEDS: IPRATROPIUM/ALBUTEROL 3 ML AMPUL.NEB INH ×4 (00:50→18:20)
[2024-06-22] MEDS: DEX/HYPRO/GLY ARTIFICAL TEARS 225 DROP/15 ML BTL BOTH EYES (08:44)
[2024-06-22] MEDS: FAMOTIDINE 20 MG TABLET GT ×2 (08:44→21:07)
[2024-06-22] MEDS: FUROSEMIDE 20 MG TABLET GT (08:44)
[2024-06-22] MEDS: SENNOSIDES 8.6 MG TABLET GT ×2 (08:44→21:07)
[2024-06-22] MEDS: AMLODIPINE 5 MG TABLET 2.5 MG GT (08:44)
--- NOTE | 2024-06-22 15:30 | PC.NURSE ---
Called Dr Danilo castro and spoke with Siva regarding resident's order for consult. Siva will ask MD when he will come and see the resident and will give us a call.
--- NOTE | 2024-06-22 15:39 | PC.NURSE ---
Received a call from Siva at Dr Carrasco [facility] and he said MD will come and see resident tomorrow.
[2024-06-22] MEDS: INSULIN REGULAR, HUMAN 100 UNIT/ML VIAL SC (17:06)
[2024-06-22] MEDS: INSULIN GLARGINE 100 UNIT/ML INSULN.PEN 14 UNIT SC (17:06)
[2024-06-22] MEDS: ONDANSETRON HCL 4 MG TABLET GT (19:20)
[2024-06-22] MEDS: DOXAZOSIN 2 MG TABLET 4 MG GT (21:07)
[2024-06-23] VITALS (9 sets, daily range): BP systolic 106–120; BP diastolic 67–74; PULSE 64–78; RESP 18–20; TEMP 36.1–36.6; O2SAT 96–99
[2024-06-23] MEDS: IPRATROPIUM/ALBUTEROL 3 ML AMPUL.NEB INH ×4 (00:30→18:30)
[2024-06-23] MEDS: FAMOTIDINE 20 MG TABLET GT ×2 (07:55→21:05)
[2024-06-23] MEDS: FUROSEMIDE 20 MG TABLET GT (07:55)
[2024-06-23] MEDS: AMLODIPINE 5 MG TABLET 2.5 MG GT (07:55)
[2024-06-23] MEDS: DEX/HYPRO/GLY ARTIFICAL TEARS 225 DROP/15 ML BTL BOTH EYES (07:55)
[2024-06-23] MEDS: SENNOSIDES 8.6 MG TABLET GT ×2 (07:56→21:05)
--- NOTE | 2024-06-23 14:17 | PC.NURSE ---
Dr. Carrasco here to see patient. (for consultation of increased size and firm left testi) Assisted with Assessment. did not find any issues with pt testicles. Stated no treatment is needed at this time. Continue to monitor was his recommendation.
[2024-06-23] MEDS: INSULIN GLARGINE 100 UNIT/ML INSULN.PEN 14 UNIT SC (17:15)
[2024-06-23] MEDS: DOXAZOSIN 2 MG TABLET 4 MG GT (21:05)
[2024-06-24] VITALS (9 sets, daily range): BP systolic 118–135; BP diastolic 71–84; PULSE 61–82; RESP 16–20; TEMP 36.5–36.9; O2SAT 96–99
[2024-06-24] MEDS: IPRATROPIUM/ALBUTEROL 3 ML AMPUL.NEB INH ×4 (01:30→18:50)
[2024-06-24] MEDS: DEX/HYPRO/GLY ARTIFICAL TEARS 225 DROP/15 ML BTL BOTH EYES (08:06)
[2024-06-24] MEDS: FAMOTIDINE 20 MG TABLET GT ×2 (08:06→21:39)
[2024-06-24] MEDS: AMLODIPINE 5 MG TABLET 2.5 MG GT (08:06)
[2024-06-24] MEDS: FUROSEMIDE 20 MG TABLET GT (08:07)
[2024-06-24] MEDS: SENNOSIDES 8.6 MG TABLET GT ×2 (08:07→21:39)
--- NOTE | 2024-06-24 15:19 | ESPR_ITS ---
Progress Note - SubAcute DIAGNOSIS (1) Aneurysmal subarachnoid hemorrhage: Status: Chronic (2) DM type 2, goal HbA1c < 9%: Status: Chronic (3) Chronic respiratory failure: Status: Chronic (4) Tracheostomy in place: Status: Chronic (5) PEG (percutaneous endoscopic gastrostomy) status: Status: Chronic (6) Essential (primary) hypertension: Status: Acute SUBJECTIVE Fever:: none Shortness of Breath:: none GI:: no complaints Pain:: none OBJECTIVE Most recent vital signs: Last Vital Signs Temp 98.1 F 06/24/24 12:00 Pulse 76 06/24/24 12:30 Resp 18 06/24/24 12:30 BP 130/84 06/24/24 12:00 Pulse Ox 99 06/24/24 12:30 O2 Del Method Blow-by 06/24/24 06:00 O2 Flow Rate 6 06/24/24 12:30 FiO2 28 06/24/24 12:30 Neurological:: alert (responds to simple commands, shakes hands with his left) Speech:: none Answers questions:: no Respiratory:: shallow breathing Cardiovascular: RRR Abdomen: soft and nontender Extremities:: deformities Decubitus:: improved Tracheostomy:: to blow by Feeding per:: G tube Complaints:: none ASSESSMENT & PLAN Assessment: Pt. has certainly been awake and eye tracking some, does extend his left hand when offered a hand shake and responses are appropriate. Diagnosis and treatment reviewed. All else stable, pt fully dependent for care. I had a detailed converiisation with pt's about his status and prognostic outlooks and explained in detail all her questions to which she was thankful even though more saddened by the reality of his condition and unpromising expectations. He shows no improvement in his chronic significant neurological deficit.No new issues Plans to take him home on hold for the time at pt's 's request for lack of resources to take good care of him at home. Recently started on Erythromycin low dose for improving GI motiliity and seems to be working as emesis now has been very infrequent. This was discussed in IDT with pts daughter over the phone. 02-23-24 Bedside meeting with pt's present along with RN and respiratory therapist and all questions answered. Family reconsidering possibility of taking pt home but now requests transfer to [facility] in [place] that would be closer to home before being able to think of arrangement for transfer home. Comfort objective achieved. Pt remains appropriate in response to simple commands but almost fully dependent for care . No pain issues. VSS Noticed to have discharge from scrotum which showed no wbc/bacteria. Ultrasound shows possible fluid accumulation. Surgical consult requested. Pt shows no signs of infection, afebrile and comfortable with normal VS. Monitored closely. Started on Augmentin per cultures. Urology consult requested and seen . Afebrile and comfortable Plan: Current treatment as ongoing. . Family updated.
[2024-06-24] MEDS: INSULIN GLARGINE 100 UNIT/ML INSULN.PEN 14 UNIT SC (17:40)
[2024-06-24] MEDS: ONDANSETRON HCL 4 MG TABLET GT (21:04)
[2024-06-24] MEDS: DOXAZOSIN 2 MG TABLET 4 MG GT (21:40)
[2024-06-24] MEDS: ACETAMINOPHEN 325 MG TABLET 650 MG GT (23:28)
[2024-06-25] VITALS (9 sets, daily range): BP systolic 90–122; BP diastolic 60–79; PULSE 64–77; RESP 18–20; TEMP 36–36.6; O2SAT 97–99
[2024-06-25] MEDS: IPRATROPIUM/ALBUTEROL 3 ML AMPUL.NEB INH ×4 (01:00→18:22)
[2024-06-25] MEDS: FUROSEMIDE 20 MG TABLET GT (08:00)
[2024-06-25] MEDS: AMLODIPINE 5 MG TABLET 2.5 MG GT (08:00)
[2024-06-25] MEDS: DEX/HYPRO/GLY ARTIFICAL TEARS 225 DROP/15 ML BTL BOTH EYES (08:00)
[2024-06-25] MEDS: SENNOSIDES 8.6 MG TABLET GT ×2 (08:00→20:54)
[2024-06-25] MEDS: FAMOTIDINE 20 MG TABLET GT ×2 (08:00→20:54)
--- NOTE | 2024-06-25 11:08 | UCCONSULT_ITS ---
RE: RODOLFO PHAM : 1960 DATE OF CONSULTATION: 06/23/2024 CHIEF COMPLAINT: 1. Urinary tract infection. 2. Abscess left scrotum. HISTORY OF PRESENT ILLNESS: Mr. Pham is a 64-year-old gentleman. He has established diagnosis of, 1. J96.20, acute and chronic respiratory failure. 2. Z99.11, dependence on respirator. 3. Z91.1 gastrostomy status. 4. Z93.0 tracheostomy status, status post tracheostomy. 5. I60.8 other nontraumatic subarachnoid hemorrhage. 6. E11.9, diabetes mellitus type 2. 7. I10, essential hypertension. This is a 64-year-old gentleman. He is nonverbal. This patient had UTI. He is being treated with antibiotics. The patient had ultrasound of both scrotum done. This revealed no testicular torsion or testicular mass. There is a small epididymal cyst, left side solid outside, left testicle within scrotal sac is 2.1 x 1.8 x 1.8 cm, possibly a small scrotal abscess. PHYSICAL EXAMINATION: General: The patient is nonverbal. Genital: Revealed a small scrotal cyst. The small abscess has already drained. RECOMMENDATIONS: 1. Keep the scrotum clean and elevated. 2. Treat UTI with antibiotics. DT: 15:45:55 TT: 18:21:00 Ref: [id number] - TID: [id number]
[2024-06-25] MEDS: ACETAMINOPHEN 325 MG TABLET 650 MG GT (14:00)
[2024-06-25] MEDS: INSULIN GLARGINE 100 UNIT/ML INSULN.PEN 14 UNIT SC (17:07)
[2024-06-25] MEDS: DOXAZOSIN 2 MG TABLET 4 MG GT (20:54)
[2024-06-25] MEDS: ONDANSETRON HCL 4 MG TABLET GT (20:54)
[2024-06-26] VITALS (7 sets, daily range): BP systolic 102–130; BP diastolic 67–83; PULSE 70–80; RESP 17–20; TEMP 36.2–36.8; O2SAT 96–99
[2024-06-26] MEDS: IPRATROPIUM/ALBUTEROL 3 ML AMPUL.NEB INH ×3 (06:25→18:12)
[2024-06-26] MEDS: DEX/HYPRO/GLY ARTIFICAL TEARS 225 DROP/15 ML BTL BOTH EYES (08:07)
[2024-06-26] MEDS: SENNOSIDES 8.6 MG TABLET GT ×2 (08:08→20:56)
[2024-06-26] MEDS: FUROSEMIDE 20 MG TABLET GT (08:08)
[2024-06-26] MEDS: FAMOTIDINE 20 MG TABLET GT ×2 (08:08→20:56)
[2024-06-26] MEDS: INSULIN GLARGINE 100 UNIT/ML INSULN.PEN 14 UNIT SC (17:13)
[2024-06-26] MEDS: guaiFENesin Liq 100 MG/5 ML LIQUID 300 MG GT (17:17)
[2024-06-26] MEDS: DOXAZOSIN 2 MG TABLET 4 MG GT (20:56)
[2024-06-27] VITALS (10 sets, daily range): BP systolic 103–123; BP diastolic 65–73; PULSE 68–107; RESP 17–24; TEMP 36.1–36.9; O2SAT 94–99
[2024-06-27] MEDS: IPRATROPIUM/ALBUTEROL 3 ML AMPUL.NEB INH ×4 (00:41→18:28)
[2024-06-27] MEDS: FAMOTIDINE 20 MG TABLET GT ×2 (07:55→20:15)
[2024-06-27] MEDS: DEX/HYPRO/GLY ARTIFICAL TEARS 225 DROP/15 ML BTL BOTH EYES (07:55)
[2024-06-27] MEDS: FUROSEMIDE 20 MG TABLET GT (07:55)
[2024-06-27] MEDS: SENNOSIDES 8.6 MG TABLET GT ×2 (07:55→20:15)
[2024-06-27] MEDS: INSULIN GLARGINE 100 UNIT/ML INSULN.PEN 14 UNIT SC (17:12)
[2024-06-27] MEDS: DOXAZOSIN 2 MG TABLET 4 MG GT (20:14)
[2024-06-28] VITALS (8 sets, daily range): BP systolic 105–149; BP diastolic 65–75; PULSE 68–79; RESP 17–19; TEMP 36.2–36.6; O2SAT 96–99
[2024-06-28] MEDS: IPRATROPIUM/ALBUTEROL 3 ML AMPUL.NEB INH ×4 (00:26→18:37)
[2024-06-28] MEDS: AMLODIPINE 5 MG TABLET 2.5 MG GT (08:06)
[2024-06-28] MEDS: SENNOSIDES 8.6 MG TABLET GT ×2 (08:08→21:30)
[2024-06-28] MEDS: DEX/HYPRO/GLY ARTIFICAL TEARS 225 DROP/15 ML BTL BOTH EYES (08:08)
[2024-06-28] MEDS: FUROSEMIDE 20 MG TABLET GT (08:08)
[2024-06-28] MEDS: FAMOTIDINE 20 MG TABLET GT ×2 (08:08→21:30)
--- NOTE | 2024-06-28 12:10 | PC.SS ---
Resident seen by Supply Coordinator/ Dr. Garces for routine toe nail trim. Resident tolerated treatment well, see physicians notes for recommendations and any new orders.
[2024-06-28] MEDS: CARBAMIDE PEROXIDE OTIC SOL 15 ML BTL 5 DROP BOTH EARS ×2 (14:15→21:29)
--- NOTE | 2024-06-28 15:19 | PC.NURSE ---
Venus HENDRICKS nurse and Dr. Garces (Road Marker) notified financial writer regarding his assessment during this morning visit with Mr. Ferreira. He stated he did not feel pedal pulses during palpation. Notified MD Diaz No new orders made. Just to monitor feet every shift. and to report changes CLEMENTINE.
[2024-06-28] MEDS: INSULIN GLARGINE 100 UNIT/ML INSULN.PEN 14 UNIT SC (17:15)
[2024-06-28] MEDS: ACETAMINOPHEN 325 MG TABLET 650 MG GT (17:30)
[2024-06-28] MEDS: DOXAZOSIN 2 MG TABLET 4 MG GT (21:29)
--- NOTE | 2024-06-28 22:37 | ESPR_ITS ---
Progress Note - SubAcute DIAGNOSIS (1) Aneurysmal subarachnoid hemorrhage: Status: Chronic (2) DM type 2, goal HbA1c < 9%: Status: Chronic (3) Chronic respiratory failure: Status: Chronic (4) Tracheostomy in place: Status: Chronic (5) PEG (percutaneous endoscopic gastrostomy) status: Status: Chronic (6) Essential (primary) hypertension: Status: Acute SUBJECTIVE Fever:: none Shortness of Breath:: none GI:: no complaints Pain:: none OBJECTIVE Most recent vital signs: Last Vital Signs Temp 97.8 F 06/28/24 17:56 Pulse 75 06/28/24 17:56 Resp 18 06/28/24 17:56 BP 105/65 06/28/24 17:56 Pulse Ox 96 06/28/24 17:56 O2 Del Method Blow-by 06/28/24 17:56 O2 Flow Rate 6 06/28/24 12:25 FiO2 28 06/28/24 12:25 Neurological:: alert (responds to simple commands, shakes hands with his left) Speech:: none Answers questions:: no Respiratory:: shallow breathing Cardiovascular: RRR Abdomen: soft and nontender Extremities:: deformities Decubitus:: improved Tracheostomy:: to blow by Feeding per:: G tube Complaints:: none ASSESSMENT & PLAN Assessment: Pt. has certainly been awake and eye tracking some, does extend his left hand when offered a hand shake and responses are appropriate. Diagnosis and treatment reviewed. All else stable, pt fully dependent for care. I had a detailed converiisation with pt's about his status and prognostic outlooks and explained in detail all her questions to which she was thankful even though more saddened by the reality of his condition and unpromising expectations. He shows no improvement in his chronic significant neurological deficit.No new issues Plans to take him home on hold for the time at pt's 's request for lack of resources to take good care of him at home. Recently started on Erythromycin low dose for improving GI motiliity and seems to be working as emesis now has been very infrequent. This was discussed in IDT with pts daughter over the phone. 02-23-24 Bedside meeting with pt's present along with RN and respiratory therapist and all questions answered. Family reconsidering possibility of taking pt home but now requests transfer to [facility] in [place] that would be closer to home before being able to think of arrangement for transfer home. Comfort objective achieved. Pt remains appropriate in response to simple commands but almost fully dependent for care . No pain issues. VSS Noticed to have discharge from scrotum which showed no wbc/bacteria. Ultrasound shows possible fluid accumulation. Surgical consult requested. Pt shows no signs of infection, afebrile and comfortable with normal VS. Monitored closely. Started on Augmentin per cultures. Urology consult requested and seen . Afebrile and comfortable Possible transfer to S/Acute in pt's hometown of [place] since a bed is vacant and lateral transfer being made and esier to family to visit him ore often Plan: Current treatment as ongoing. . Family updated.
[2024-06-29] VITALS (9 sets, daily range): BP systolic 109–136; BP diastolic 66–79; PULSE 66–83; RESP 17–20; TEMP 36.2–36.6; O2SAT 97–100
[2024-06-29] MEDS: IPRATROPIUM/ALBUTEROL 3 ML AMPUL.NEB INH ×4 (01:16→18:35)
[2024-06-29] MEDS: ACETAMINOPHEN 325 MG TABLET 650 MG GT (08:49)
[2024-06-29] MEDS: FAMOTIDINE 20 MG TABLET GT ×2 (08:50→21:09)
[2024-06-29] MEDS: FUROSEMIDE 20 MG TABLET GT (08:50)
[2024-06-29] MEDS: AMLODIPINE 5 MG TABLET 2.5 MG GT (08:50)
[2024-06-29] MEDS: DEX/HYPRO/GLY ARTIFICAL TEARS 225 DROP/15 ML BTL BOTH EYES (08:50)
[2024-06-29] MEDS: CARBAMIDE PEROXIDE OTIC SOL 15 ML BTL 5 DROP BOTH EARS ×2 (08:50→21:08)
[2024-06-29] MEDS: guaiFENesin Liq 100 MG/5 ML LIQUID 300 MG GT (08:51)
[2024-06-29] MEDS: SENNOSIDES 8.6 MG TABLET GT ×2 (08:51→21:09)
--- NOTE | 2024-06-29 13:02 | PC.SS ---
This SSD spoke with Chris patient liaison at [facility], she informed this SSD after review they will accept resident to their facility. She asked for updated clinicals for them to obtain authorization for resident to do a lateral transfer there. Once she receives authorization she will update this SSD and and this SSD will arrange for transportation. This SSD updated RP Harper and she agrees she will have to pay for transfer if insurance will not pay for it. This Transfer is being initiated by Harper. Charge nurse made aware.
[2024-06-29] MEDS: INSULIN GLARGINE 100 UNIT/ML INSULN.PEN 14 UNIT SC (16:57)
[2024-06-29] MEDS: DOXAZOSIN 2 MG TABLET 4 MG GT (21:09)
[2024-06-30] VITALS (9 sets, daily range): BP systolic 102–136; BP diastolic 64–82; PULSE 66–78; RESP 18–20; TEMP 36.4–36.6; O2SAT 97–100
[2024-06-30] MEDS: IPRATROPIUM/ALBUTEROL 3 ML AMPUL.NEB INH ×4 (00:32→19:00)
[2024-06-30] MEDS: FUROSEMIDE 20 MG TABLET GT (08:10)
[2024-06-30] MEDS: CARBAMIDE PEROXIDE OTIC SOL 15 ML BTL 5 DROP BOTH EARS ×2 (08:10→21:28)
[2024-06-30] MEDS: DEX/HYPRO/GLY ARTIFICAL TEARS 225 DROP/15 ML BTL BOTH EYES (08:10)
[2024-06-30] MEDS: FAMOTIDINE 20 MG TABLET GT ×2 (08:10→21:01)
[2024-06-30] MEDS: SENNOSIDES 8.6 MG TABLET GT ×2 (08:15→21:01)
[2024-06-30] MEDS: INSULIN GLARGINE 100 UNIT/ML INSULN.PEN 14 UNIT SC (17:05)
[2024-06-30] MEDS: DOXAZOSIN 2 MG TABLET 4 MG GT (21:02)
[2024-07-01] VITALS (8 sets, daily range): BP systolic 116–135; BP diastolic 71–84; PULSE 64–74; RESP 17–20; TEMP 36.1–36.5; O2SAT 97–99
[2024-07-01] MEDS: IPRATROPIUM/ALBUTEROL 3 ML AMPUL.NEB INH ×3 (00:40→18:20)
[2024-07-01] MEDS: CARBAMIDE PEROXIDE OTIC SOL 15 ML BTL 5 DROP BOTH EARS ×2 (09:09→21:49)
[2024-07-01] MEDS: AMLODIPINE 5 MG TABLET 2.5 MG GT (09:09)
[2024-07-01] MEDS: DEX/HYPRO/GLY ARTIFICAL TEARS 225 DROP/15 ML BTL BOTH EYES (09:09)
[2024-07-01] MEDS: SENNOSIDES 8.6 MG TABLET GT ×2 (09:10→21:05)
[2024-07-01] MEDS: FUROSEMIDE 20 MG TABLET GT (09:10)
[2024-07-01] MEDS: FAMOTIDINE 20 MG TABLET GT ×2 (09:10→21:05)
[2024-07-01] MEDS: guaiFENesin Liq 100 MG/5 ML LIQUID 300 MG GT (11:23)
[2024-07-01] MEDS: INSULIN GLARGINE 100 UNIT/ML INSULN.PEN 14 UNIT SC (17:07)
[2024-07-01] MEDS: DOXAZOSIN 2 MG TABLET 4 MG GT (21:05)
[2024-07-02] VITALS (9 sets, daily range): BP systolic 98–136; BP diastolic 61–71; PULSE 67–77; RESP 17–23; TEMP 36.3–36.6; O2SAT 96–100; BMI 24.3
[2024-07-02] MEDS: IPRATROPIUM/ALBUTEROL 3 ML AMPUL.NEB INH ×4 (00:40→19:00)
[2024-07-02] MEDS: DEX/HYPRO/GLY ARTIFICAL TEARS 225 DROP/15 ML BTL BOTH EYES (08:44)
[2024-07-02] MEDS: FAMOTIDINE 20 MG TABLET GT ×2 (08:45→20:58)
[2024-07-02] MEDS: FUROSEMIDE 20 MG TABLET GT (08:45)
[2024-07-02] MEDS: SENNOSIDES 8.6 MG TABLET GT ×2 (08:45→20:58)
[2024-07-02] MEDS: guaiFENesin Liq 100 MG/5 ML LIQUID 300 MG GT (08:45)
[2024-07-02] MEDS: INSULIN GLARGINE 100 UNIT/ML INSULN.PEN 14 UNIT SC (17:11)
--- NOTE | 2024-07-02 17:22 | PC.NURSE ---
Seen by Dr Diaz,no new orders made.
--- NOTE | 2024-07-02 20:48 | ESPR_ITS ---
Progress Note - SubAcute DIAGNOSIS (1) Aneurysmal subarachnoid hemorrhage: Status: Chronic (2) DM type 2, goal HbA1c < 9%: Status: Chronic (3) Chronic respiratory failure: Status: Chronic (4) Tracheostomy in place: Status: Chronic (5) PEG (percutaneous endoscopic gastrostomy) status: Status: Chronic (6) Essential (primary) hypertension: Status: Acute SUBJECTIVE Fever:: none Shortness of Breath:: none GI:: no complaints Pain:: none OBJECTIVE Most recent vital signs: Last Vital Signs Temp 97.3 F 07/02/24 17:29 Pulse 67 07/02/24 17:29 Resp 17 07/02/24 17:29 BP 121/71 07/02/24 17:29 Pulse Ox 98 07/02/24 17:29 O2 Del Method Blow-by 07/02/24 17:29 O2 Flow Rate 6 07/02/24 12:23 FiO2 28 07/02/24 12:23 Neurological:: alert (responds to simple commands, shakes hands with his left) Speech:: none Answers questions:: no Respiratory:: shallow breathing Cardiovascular: RRR Abdomen: soft and nontender Extremities:: deformities Decubitus:: improved Tracheostomy:: to blow by Feeding per:: G tube Complaints:: none ASSESSMENT & PLAN Assessment: Pt. has certainly been awake and eye tracking some, does extend his left hand when offered a hand shake and responses are appropriate. Diagnosis and treatment reviewed. All else stable, pt fully dependent for care. I had a detailed converiisation with pt's about his status and prognostic outlooks and explained in detail all her questions to which she was thankful even though more saddened by the reality of his condition and unpromising expectations. He shows no improvement in his chronic significant neurological deficit.No new issues Plans to take him home on hold for the time at pt's 's request for lack of resources to take good care of him at home. Recently started on Erythromycin low dose for improving GI motiliity and seems to be working as emesis now has been very infrequent. This was discussed in IDT with pts daughter over the phone. 02-23-24 Bedside meeting with pt's present along with RN and respiratory therapist and all questions answered. Family reconsidering possibility of taking pt home but now requests transfer to [facility] in [place] that would be closer to home before being able to think of arrangement for transfer home. Comfort objective achieved. Pt remains appropriate in response to simple commands but almost fully dependent for care . No pain issues. VSS Noticed to have discharge from scrotum which showed no wbc/bacteria. Ultrasound shows possible fluid accumulation. Surgical consult requested. Pt shows no signs of infection, afebrile and comfortable with normal VS. Monitored closely. Started on Augmentin per cultures. Urology consult requested and seen . Afebrile and comfortable Possible transfer to S/Acute in pt's hometown of [place] since a bed is vacant and lateral transfer being made and easier to family to visit him more often. Waiting for an empty bed to be available in the other center Plan: Current treatment as ongoing. . Family updated.
[2024-07-02] MEDS: DOXAZOSIN 2 MG TABLET 4 MG GT (20:58)
[2024-07-03] VITALS (9 sets, daily range): BP systolic 96–136; BP diastolic 60–81; PULSE 63–85; RESP 18–19; TEMP 36.2–36.7; O2SAT 96–100
[2024-07-03] MEDS: IPRATROPIUM/ALBUTEROL 3 ML AMPUL.NEB INH ×4 (00:40→18:50)
[2024-07-03] MEDS: AMLODIPINE 5 MG TABLET 2.5 MG GT (08:06)
[2024-07-03] MEDS: SENNOSIDES 8.6 MG TABLET GT ×2 (08:07→20:59)
[2024-07-03] MEDS: DEX/HYPRO/GLY ARTIFICAL TEARS 225 DROP/15 ML BTL BOTH EYES (08:07)
[2024-07-03] MEDS: FUROSEMIDE 20 MG TABLET GT (08:07)
[2024-07-03] MEDS: FAMOTIDINE 20 MG TABLET GT ×2 (08:07→21:00)
[2024-07-03] MEDS: INSULIN GLARGINE 100 UNIT/ML INSULN.PEN 14 UNIT SC (17:50)
[2024-07-03] MEDS: DOXAZOSIN 2 MG TABLET 4 MG GT (21:00)
[2024-07-04] VITALS (8 sets, daily range): BP systolic 105–124; BP diastolic 61–78; PULSE 59–83; RESP 18–20; TEMP 36.1–36.6; O2SAT 97–100
[2024-07-04] MEDS: IPRATROPIUM/ALBUTEROL 3 ML AMPUL.NEB INH ×3 (07:20→18:49)
[2024-07-04] MEDS: AMLODIPINE 5 MG TABLET 2.5 MG GT (08:11)
[2024-07-04] MEDS: DEX/HYPRO/GLY ARTIFICAL TEARS 225 DROP/15 ML BTL BOTH EYES (08:11)
[2024-07-04] MEDS: FAMOTIDINE 20 MG TABLET GT ×2 (08:12→20:55)
[2024-07-04] MEDS: SENNOSIDES 8.6 MG TABLET GT ×2 (08:12→20:55)
[2024-07-04] MEDS: FUROSEMIDE 20 MG TABLET GT (08:12)
--- NOTE | 2024-07-04 16:41 | PC.NURSE ---
Small abrasion caused during nail care to left thumb nail area, minimal bleeding noted. Initiated tx with triple antibiotic ointment and applied band aid. Notified Harper resident's . Will monitor.
[2024-07-04] MEDS: INSULIN GLARGINE 100 UNIT/ML INSULN.PEN 14 UNIT SC (17:21)
[2024-07-04] MEDS: DOXAZOSIN 2 MG TABLET 4 MG GT (20:54)
[2024-07-04] MEDS: ACETAMINOPHEN 325 MG TABLET 650 MG GT (20:55)
[2024-07-05] VITALS (9 sets, daily range): BP systolic 93–126; BP diastolic 57–82; PULSE 66–88; RESP 18–20; TEMP 36.1–36.9; O2SAT 95–99
[2024-07-05] MEDS: IPRATROPIUM/ALBUTEROL 3 ML AMPUL.NEB INH ×3 (01:49→20:35)
[2024-07-05] MEDS: DEX/HYPRO/GLY ARTIFICAL TEARS 225 DROP/15 ML BTL BOTH EYES (08:58)
[2024-07-05] MEDS: FAMOTIDINE 20 MG TABLET GT ×2 (08:58→21:03)
[2024-07-05] MEDS: FUROSEMIDE 20 MG TABLET GT (08:58)
[2024-07-05] MEDS: SENNOSIDES 8.6 MG TABLET GT ×2 (08:58→21:04)
--- NOTE | 2024-07-05 14:54 | PC.SS ---
This SSD received update from Salome at [facility] stating they have not been able to get authorization for resident to be transferred to their subacute. She said she will continue to wok closely on it and keep us updated. This SSD updated RP as she too is keeping in touch with facility.
[2024-07-05] MEDS: INSULIN REGULAR, HUMAN 100 UNIT/ML VIAL SC (17:26)
[2024-07-05] MEDS: INSULIN GLARGINE 100 UNIT/ML INSULN.PEN 14 UNIT SC (17:27)
[2024-07-05] MEDS: DOXAZOSIN 2 MG TABLET 4 MG GT (21:03)
[2024-07-06] VITALS (7 sets, daily range): BP systolic 110–131; BP diastolic 64–77; PULSE 66–79; RESP 18–20; TEMP 36.6–36.7; O2SAT 94–99
[2024-07-06] MEDS: IPRATROPIUM/ALBUTEROL 3 ML AMPUL.NEB INH ×4 (00:05→19:15)
[2024-07-06] MEDS: AMLODIPINE 5 MG TABLET 2.5 MG GT (09:17)
[2024-07-06] MEDS: SENNOSIDES 8.6 MG TABLET GT ×2 (09:18→21:08)
[2024-07-06] MEDS: FAMOTIDINE 20 MG TABLET GT ×2 (09:18→21:08)
[2024-07-06] MEDS: FUROSEMIDE 20 MG TABLET GT (09:18)
[2024-07-06] MEDS: DEX/HYPRO/GLY ARTIFICAL TEARS 225 DROP/15 ML BTL BOTH EYES (09:18)
[2024-07-06] MEDS: INSULIN GLARGINE 100 UNIT/ML INSULN.PEN 14 UNIT SC (17:07)
--- NOTE | 2024-07-06 20:09 | ESPR_ITS ---
Progress Note - SubAcute DIAGNOSIS (1) Aneurysmal subarachnoid hemorrhage: Status: Chronic (2) DM type 2, goal HbA1c < 9%: Status: Chronic (3) Chronic respiratory failure: Status: Chronic (4) Tracheostomy in place: Status: Chronic (5) PEG (percutaneous endoscopic gastrostomy) status: Status: Chronic (6) Essential (primary) hypertension: Status: Acute SUBJECTIVE Fever:: none Shortness of Breath:: none GI:: no complaints Pain:: none OBJECTIVE Most recent vital signs: Last Vital Signs Temp 98.1 F 07/06/24 18:00 Pulse 74 07/06/24 18:00 Resp 19 07/06/24 18:00 BP 110/64 07/06/24 18:00 Pulse Ox 94 L 07/06/24 18:00 O2 Del Method Blow-by 07/06/24 18:00 O2 Flow Rate 6 07/06/24 12:20 FiO2 07/06/24 12:20 Neurological:: alert (responds to simple commands, shakes hands with his left) Speech:: none Answers questions:: no Respiratory:: shallow breathing Cardiovascular: RRR Abdomen: soft and nontender Extremities:: deformities Decubitus:: improved Tracheostomy:: to blow by Feeding per:: G tube Complaints:: none ASSESSMENT & PLAN Assessment: Pt. has certainly been awake and eye tracking some, does extend his left hand when offered a hand shake and responses are appropriate. Diagnosis and treatment reviewed. All else stable, pt fully dependent for care. I had a detailed converiisation with pt's about his status and prognostic outlooks and explained in detail all her questions to which she was thankful even though more saddened by the reality of his condition and unpromising expectations. He shows no improvement in his chronic significant neurological deficit.No new issues Plans to take him home on hold for the time at pt's 's request for lack of resources to take good care of him at home. Recently started on Erythromycin low dose for improving GI motiliity and seems to be working as emesis now has been very infrequent. This was discussed in IDT with pts daughter over the phone. 02-23-24 Bedside meeting with pt's present along with RN and respiratory therapist and all questions answered. Family reconsidering possibility of taking pt home but now requests transfer to [facility] in [place] that would be closer to home before being able to think of arrangement for transfer home. Comfort objective achieved. Pt remains appropriate in response to simple commands but almost fully dependent for care . No pain issues. VSS Noticed to have discharge from scrotum which showed no wbc/bacteria. Ultrasound shows possible fluid accumulation. Surgical consult requested. Pt shows no signs of infection, afebrile and comfortable with normal VS. Monitored closely. Started on Augmentin per cultures. Urology consult requested and seen . Afebrile and comfortable Possible transfer to S[facility] in pt's hometown of [place] since a bed is vacant and lateral transfer being made and easier to family to visit him more often. Waiting for an empty bed to be available in the other center. No new issues. Plan: Current treatment as ongoing. . Family updated.
[2024-07-06] MEDS: DOXAZOSIN 2 MG TABLET 4 MG GT (21:07)
[2024-07-07] VITALS (9 sets, daily range): BP systolic 96–113; BP diastolic 60–74; PULSE 64–78; RESP 16–24; TEMP 36.2–36.6; O2SAT 96–99
[2024-07-07] MEDS: IPRATROPIUM/ALBUTEROL 3 ML AMPUL.NEB INH ×4 (00:40→19:38)
[2024-07-07] MEDS: DEX/HYPRO/GLY ARTIFICAL TEARS 225 DROP/15 ML BTL BOTH EYES (08:10)
[2024-07-07] MEDS: SENNOSIDES 8.6 MG TABLET GT ×2 (08:13→21:00)
[2024-07-07] MEDS: FUROSEMIDE 20 MG TABLET GT (08:13)
[2024-07-07] MEDS: FAMOTIDINE 20 MG TABLET GT ×2 (09:12→21:00)
--- NOTE | 2024-07-07 10:10 | PC.DIETICIAN ---
Dietitian note: Increase TF to prevent wt loss: Glucerna 1.2 @ 75ml/hr to provide: 1650ml total vol, 1980kcal, 99g protein. Thank you
[2024-07-07] MEDS: INSULIN GLARGINE 100 UNIT/ML INSULN.PEN 14 UNIT SC (17:13)
[2024-07-07] MEDS: DOXAZOSIN 2 MG TABLET 4 MG GT (20:59)
[2024-07-07] MEDS: ACETAMINOPHEN 325 MG TABLET 650 MG GT (21:04)
[2024-07-08] VITALS (9 sets, daily range): BP systolic 99–138; BP diastolic 58–80; PULSE 64–86; RESP 17–24; TEMP 36–37; O2SAT 96–99
[2024-07-08] MEDS: IPRATROPIUM/ALBUTEROL 3 ML AMPUL.NEB INH ×4 (00:32→18:30)
[2024-07-08] MEDS: DEX/HYPRO/GLY ARTIFICAL TEARS 225 DROP/15 ML BTL BOTH EYES (08:02)
[2024-07-08] MEDS: FUROSEMIDE 20 MG TABLET GT (08:03)
[2024-07-08] MEDS: FAMOTIDINE 20 MG TABLET GT ×2 (08:03→20:47)
[2024-07-08] MEDS: SENNOSIDES 8.6 MG TABLET GT ×2 (08:03→20:48)
--- NOTE | 2024-07-08 12:35 | PC.SS ---
Resident Harper stated she would like to have resident be fully dressed with top and bottom. She states resident will pull sheets or blankets up to his face and will unintentionally expose himself. She states he has always covered his face with a blanket as it provides him comfort. This SSD noticed he keeps his mouth and nose covered and at times will have his hand over his face to cover himself. This SSD updated care plan and has informed charge nurse of RP's request.
[2024-07-08] MEDS: INSULIN GLARGINE 100 UNIT/ML INSULN.PEN 14 UNIT SC (17:13)
[2024-07-08] MEDS: DOXAZOSIN 2 MG TABLET 4 MG GT (20:47)
[2024-07-08] MEDS: ACETAMINOPHEN 325 MG TABLET 650 MG GT (20:48)
[2024-07-09] VITALS (10 sets, daily range): BP systolic 99–115; BP diastolic 63–72; PULSE 57–76; RESP 16–23; TEMP 35.9–36.6; O2SAT 93–99
[2024-07-09] MEDS: IPRATROPIUM/ALBUTEROL 3 ML AMPUL.NEB INH ×4 (00:50→19:15)
[2024-07-09] MEDS: DEX/HYPRO/GLY ARTIFICAL TEARS 225 DROP/15 ML BTL BOTH EYES (08:01)
[2024-07-09] MEDS: FAMOTIDINE 20 MG TABLET GT ×2 (08:02→21:36)
[2024-07-09] MEDS: SENNOSIDES 8.6 MG TABLET GT ×2 (08:02→21:36)
[2024-07-09] MEDS: FUROSEMIDE 20 MG TABLET GT (08:02)
--- NOTE | 2024-07-09 11:16 | PC.SS ---
DC Planning: This SSD received call from Salome patient liaison at [facility]. She stated authorization has been obtained for subacute services at [facility]. resident will DC on July 15. flower buncher or picker time with [facility] is scheduled for 0900 for a 1000 drop off. SHANEKA Saleem is aware and is happy with outcome. This DC was initiated by resident SHANEKA Saleem, she has asked he be moved closer to home. charge nurse made aware.
--- NOTE | 2024-07-09 15:23 | PC.SS ---
Resident will DC on July 15 @ 0900 via [facility] transport with [facility].
--- NOTE | 2024-07-09 16:10 | PC.NURSE ---
Resident has an order for pneumonia vaccine last May and wasn't given at this time. Spoke with Joana and mentioned and made aware of it and said family already gave the consent. Notified Dr Diaz and made aware of it, order received to give the vaccine. Called resident's Harper and made aware of it.
--- NOTE | 2024-07-09 16:54 | ESPR_ITS ---
Progress Note - SubAcute DIAGNOSIS (1) Aneurysmal subarachnoid hemorrhage: Status: Chronic (2) DM type 2, goal HbA1c < 9%: Status: Chronic (3) Chronic respiratory failure: Status: Chronic (4) Tracheostomy in place: Status: Chronic (5) PEG (percutaneous endoscopic gastrostomy) status: Status: Chronic (6) Essential (primary) hypertension: Status: Acute SUBJECTIVE Fever:: none Shortness of Breath:: none GI:: no complaints Pain:: none OBJECTIVE Most recent vital signs: Last Vital Signs Temp 97.9 F 07/09/24 12:00 Pulse 65 07/09/24 13:51 Resp 18 07/09/24 13:51 BP 101/63 07/09/24 12:00 Pulse Ox 97 07/09/24 13:51 O2 Del Method Blow-by 07/09/24 06:00 O2 Flow Rate 6 07/09/24 13:51 FiO2 28 07/09/24 13:51 Neurological:: alert (responds to simple commands, shakes hands with his left) Speech:: none Answers questions:: no Respiratory:: shallow breathing Cardiovascular: RRR Abdomen: soft and nontender Extremities:: deformities Decubitus:: improved Tracheostomy:: to blow by Feeding per:: G tube Complaints:: none ASSESSMENT & PLAN Assessment: Pt. has certainly been awake and eye tracking some, does extend his left hand when offered a hand shake and responses are appropriate. Diagnosis and treatment reviewed. All else stable, pt fully dependent for care. I had a detailed converiisation with pt's about his status and prognostic outlooks and explained in detail all her questions to which she was thankful even though more saddened by the reality of his condition and unpromising expectations. He shows no improvement in his chronic significant neurological deficit.No new issues Plans to take him home on hold for the time at pt's 's request for lack of resources to take good care of him at home. Recently started on Erythromycin low dose for improving GI motiliity and seems to be working as emesis now has been very infrequent. This was discussed in IDT with pts daughter over the phone. 02-23-24 Bedside meeting with pt's present along with RN and respiratory therapist and all questions answered. Family reconsidering possibility of taking pt home but now requests transfer to [facility] in [place] that would be closer to home before being able to think of arrangement for transfer home. Comfort objective achieved. Pt remains appropriate in response to simple commands but almost fully dependent for care . No pain issues. VSS Noticed to have discharge from scrotum which showed no wbc/bacteria. Ultrasound shows possible fluid accumulation. Surgical consult requested. Pt shows no signs of infection, afebrile and comfortable with normal VS. Monitored closely. Started on Augmentin per cultures. Urology consult requested and seen . Afebrile and comfortable Possible transfer to S/Acute in pt's hometown of [place] since a bed is vacant and lateral transfer being made and easier to family to visit him more often. Waiting for an empty bed to be available in the other center. No new issues. Plan: Current treatment as ongoing. . Family updated.
[2024-07-09] MEDS: INSULIN GLARGINE 100 UNIT/ML INSULN.PEN 14 UNIT SC (17:44)
[2024-07-09] MEDS: DOXAZOSIN 2 MG TABLET 4 MG GT (21:36)
--- NOTE | 2024-07-09 22:52 | PC.NURSE ---
PNA vacc. administered to left deltoid by day shift VALVE PIPE IRRIGATOR at 1800.
[2024-07-10] VITALS (9 sets, daily range): BP systolic 97–128; BP diastolic 63–77; PULSE 64–74; RESP 16–19; TEMP 36.2–36.5; O2SAT 96–99
[2024-07-10] MEDS: IPRATROPIUM/ALBUTEROL 3 ML AMPUL.NEB INH ×3 (01:55→18:50)
--- NOTE | 2024-07-10 06:51 | PC.NURSE ---
resident laying in bed and resting at this time. PneumoVax given to left deltoid with no adverse reaction noted. will continue to monitor.
[2024-07-10] MEDS: DEX/HYPRO/GLY ARTIFICAL TEARS 225 DROP/15 ML BTL BOTH EYES (08:10)
[2024-07-10] MEDS: AMLODIPINE 5 MG TABLET 2.5 MG GT (08:10)
[2024-07-10] MEDS: FAMOTIDINE 20 MG TABLET GT ×2 (08:11→20:26)
[2024-07-10] MEDS: SENNOSIDES 8.6 MG TABLET GT ×2 (08:11→20:26)
[2024-07-10] MEDS: FUROSEMIDE 20 MG TABLET GT (08:11)
[2024-07-10] MEDS: INSULIN GLARGINE 100 UNIT/ML INSULN.PEN 14 UNIT SC (17:11)
[2024-07-10] MEDS: DOXAZOSIN 2 MG TABLET 4 MG GT (20:26)
[2024-07-10] MEDS: ACETAMINOPHEN 325 MG TABLET 650 MG GT (20:27)
[2024-07-11] VITALS (9 sets, daily range): BP systolic 106–122; BP diastolic 70–74; PULSE 64–83; RESP 18–20; TEMP 36.2–36.6; O2SAT 97–99
[2024-07-11] MEDS: IPRATROPIUM/ALBUTEROL 3 ML AMPUL.NEB INH ×4 (00:15→18:41)
[2024-07-11] MEDS: SENNOSIDES 8.6 MG TABLET GT ×2 (08:02→21:18)
[2024-07-11] MEDS: FAMOTIDINE 20 MG TABLET GT ×2 (08:02→21:18)
[2024-07-11] MEDS: FUROSEMIDE 20 MG TABLET GT (08:02)
[2024-07-11] MEDS: DEX/HYPRO/GLY ARTIFICAL TEARS 225 DROP/15 ML BTL BOTH EYES (08:02)
[2024-07-11] MEDS: INSULIN GLARGINE 100 UNIT/ML INSULN.PEN 14 UNIT SC (17:04)
[2024-07-11] MEDS: DOXAZOSIN 2 MG TABLET 4 MG GT (21:17)
[2024-07-12] VITALS (9 sets, daily range): BP systolic 100–122; BP diastolic 64–71; PULSE 67–82; RESP 17–20; TEMP 36.4–36.7; O2SAT 95–100
[2024-07-12] MEDS: IPRATROPIUM/ALBUTEROL 3 ML AMPUL.NEB INH ×4 (01:45→18:55)
[2024-07-12] MEDS: AMLODIPINE 5 MG TABLET 2.5 MG GT (08:05)
[2024-07-12] MEDS: FUROSEMIDE 20 MG TABLET GT (08:06)
[2024-07-12] MEDS: SENNOSIDES 8.6 MG TABLET GT ×2 (08:06→20:19)
[2024-07-12] MEDS: FAMOTIDINE 20 MG TABLET GT ×2 (08:06→20:19)
[2024-07-12] MEDS: DEX/HYPRO/GLY ARTIFICAL TEARS 225 DROP/15 ML BTL BOTH EYES (08:06)
--- NOTE | 2024-07-12 14:43 | PC.SS ---
Room visit: Resident is laying in bed with head of the bed elevated with call light properly place with no signs of distress. Resident has no changes in care or condition, he is unable to make needs known and has his at bedside daily. Resident remains on blow by with trach in place and GT for medication and nutrition. Resident will DC to [facility] on July 15 via gurney transfer with [facility] with a pickling solution maker of 1500. Resident has no changes in care or condition, this SSD will continue to make contact with resident and offer any support he may needs for plans to DC.
[2024-07-12] MEDS: INSULIN GLARGINE 100 UNIT/ML INSULN.PEN 14 UNIT SC (17:19)
[2024-07-12] MEDS: ONDANSETRON HCL 4 MG TABLET GT (20:19)
[2024-07-13] VITALS (7 sets, daily range): BP systolic 111–124; BP diastolic 70–75; PULSE 69–80; RESP 17–25; TEMP 36.4–36.7; O2SAT 94–100
[2024-07-13] MEDS: IPRATROPIUM/ALBUTEROL 3 ML AMPUL.NEB INH ×4 (01:00→19:23)
[2024-07-13] MEDS: AMLODIPINE 5 MG TABLET 2.5 MG GT (09:16)
[2024-07-13] MEDS: DEX/HYPRO/GLY ARTIFICAL TEARS 225 DROP/15 ML BTL BOTH EYES (09:18)
[2024-07-13] MEDS: FAMOTIDINE 20 MG TABLET GT ×2 (09:19→20:23)
[2024-07-13] MEDS: SENNOSIDES 8.6 MG TABLET GT ×2 (09:19→20:23)
[2024-07-13] MEDS: FUROSEMIDE 20 MG TABLET GT (09:19)
[2024-07-13] MEDS: ACETAMINOPHEN 325 MG TABLET 650 MG GT ×2 (09:20→20:26)
[2024-07-13] MEDS: guaiFENesin Liq 100 MG/5 ML LIQUID 300 MG GT (09:20)
[2024-07-13] MEDS: DOXAZOSIN 2 MG TABLET 4 MG GT (20:23)
[2024-07-14] VITALS (9 sets, daily range): BP systolic 96–110; BP diastolic 59–70; PULSE 57–80; RESP 18–100; TEMP 36.4–36.7; O2SAT 94–100
[2024-07-14] MEDS: IPRATROPIUM/ALBUTEROL 3 ML AMPUL.NEB INH ×4 (00:40→18:10)
[2024-07-14] MEDS: DEX/HYPRO/GLY ARTIFICAL TEARS 225 DROP/15 ML BTL BOTH EYES (08:04)
[2024-07-14] MEDS: FAMOTIDINE 20 MG TABLET GT ×2 (08:05→20:24)
[2024-07-14] MEDS: SENNOSIDES 8.6 MG TABLET GT ×2 (08:05→20:24)
[2024-07-14] MEDS: FUROSEMIDE 20 MG TABLET GT (08:05)
--- NOTE | 2024-07-14 09:43 | PC.SS ---
Room visit: Resident is laying in bed with head of the bed elevated with call light properly placed with no signs of distress. This SSD followed up with resident to check in on current feelings surrounding his move scheduled for tomorrow. Resident was asked simple yes no questions he was able to answer all questions appropriately before moving on to yes/no discharge questions. Resident nodded head yes to wanting to move to [facility], he nodded head yes to being nervous about the move to [facility] and he nodded his head no to wanting to stay in current subacute. This SSD will follow up with resident to ensure mood is adequate.
--- NOTE | 2024-07-14 15:31 | PC.SS ---
This SSD received call from Deepali at [facility] regarding a call they received from resident SHANEKA Saleem. She stated Harper called to ask if her family could be outside for support and to greet resident as resident was admitted to new facility. Harper mentioned to the nurse she spoke with resident was having a hard time and did not want to be moved to [facility]. This SSD assured Deepali resident was prepared for the move and had been prepared for a month now. This SSD had a conversation with resident this morning where his discharge plan was explained to him. This SSD asked resident a series of simple yes/no questions regarding staying in current facility and leaving. Resident nodded his head yes to being ok with moving to [facility], he nodded his head yes when asked if he was nervous about going to a new facility. He nodded his head no when asked if he wanted to stay in current subacute. This SSD also spoke with resident SHANEKA Saleem and resident in length of the plan for DC at which time they both agreed. This SSD followed p with Deepali and informed her of this update. Deepali's concern was admitting resident when he did not want to be there and later having behavior issues This SSD informed her resident moods are adequate with no issues or concerns. This SSD shared with Deepali resident is accepting of facility, Deepali has agreed with admission. Resident is set to DC to [facility] tomorrow.
--- NOTE | 2024-07-14 15:47 | PC.SS ---
This SSD and RP Harper went over inventory as she stated she would be taking most items home today. Inventory reviewed and signed out by Harper.
[2024-07-14] MEDS: INSULIN GLARGINE 100 UNIT/ML INSULN.PEN 14 UNIT SC (17:32)
[2024-07-15] VITALS (7 sets, daily range): BP systolic 101–141; BP diastolic 60–82; PULSE 66–76; RESP 18–20; TEMP 35.9–36.6; O2SAT 96–99
[2024-07-15] MEDS: IPRATROPIUM/ALBUTEROL 3 ML AMPUL.NEB INH ×3 (00:15→12:20)
[2024-07-15] MEDS: DEX/HYPRO/GLY ARTIFICAL TEARS 225 DROP/15 ML BTL BOTH EYES (09:09)
[2024-07-15] MEDS: SENNOSIDES 8.6 MG TABLET GT (09:09)
[2024-07-15] MEDS: FUROSEMIDE 20 MG TABLET GT (09:09)
[2024-07-15] MEDS: FAMOTIDINE 20 MG TABLET GT (09:09)
--- NOTE | 2024-07-15 11:20 | ESDS_ITS ---
RE: RODOLFO PHAM : 1960 DATE OF ADMISSION: 12/05/2022 DATE OF DISCHARGE: 07/15/2024 ADMITTING DIAGNOSES: 1. Chronic respiratory failure, ventilator dependent with tracheostomy and a feeding gastrostomy tube. 2. Subarachnoid hemorrhage, status post cerebral aneurysmal bleed. 3. Comorbidities: Diabetes mellitus type 2; essential hypertension; altered mental status (anoxic encephalopathy?) DISCHARGE DIAGNOSES: 1. The patient with chronic respiratory failure with tracheostomy tube in place. 2. Dysphagia with a feeding gastrostomy tube in place. 3. History of subarachnoid hemorrhage from cerebral aneurysm with right-sided weakness, patient bedbound and dependent. 4. Comorbidities include diabetes mellitus type 2; essential hypertension. HOSPITAL COURSE AND RELEVANT DATA: The patient now is a 64-year-old male, who was admitted on 12/05/2022 after an acute subarachnoid hemorrhage from a cerebral aneurysmal leak on the left cortex with right-sided weakness and altered mental status with tracheostomy and a feeding tube and comorbidities of diabetes; essential hypertension. The patient was in chronic respiratory failure, ventilator dependent. Over the course of his stay, he was successfully weaned off the ventilator. He improved in his mental status to current when he is awake and alert and oriented in place and person and able to respond appropriately to simple commands. During the course of his stay in the [facility], the patient on 04/09/2023 was admitted to acute care for treatment of sepsis secondary to urinary tract infection with proteus UTI and pneumonia. Evaluation did identify a left ureteral stone as well. The patient was successfully treated, responded well and was returned back to the [facility] after a few days in acute hospital. Subsequently, patient's course in the [facility] has been a stable one. The patient's family [place] in a [place] town and are very supportive and to make it more compatible with their home location compared to the patients They requested and arranged a transfer closer to home at [facility] in [place] where he is planned to be discharged on 07/15/2024 with all the current ongoing medications, which are attached along with and forwarded to the subacute as well as the receiving MD. The patient has been very stable. DT: 07:22:53 TT: 16:34:00 Ref: [id number] - TID: [id number] MTDD
--- NOTE | 2024-07-15 13:43 | PC.SS ---
Resident discharged to [facility] via [facility] [place]. Resident was at bedside, resident was in good spirits with no signs of distress. PASRR exchange initiated.
--- NOTE | 2024-07-15 13:50 | PC.NURSE ---
Late entry for discharge related. Resident was on scheduled for a transfer to [facility] subacute unit. Detailed report given to ARLYN Mauro. Resident the was picked up at around 1325 by [place] [facility] crew. Assisted resident to adria, placed resident on Oxygen 6L via trach tube. vital signs stable upon departure. 97.8,71,20, 141/77. Harper at bedside. Resident departed at 1340.
--- NOTE | 2024-07-15 14:36 | PC.NURSE ---
Resident discharged to [facility] via gurney by [email or web address], was disconnected from Gtube and flushed with 60ml water; Harper left with residents belongings.
== END | DRG 130 ==
PROVIDERS: Admitting Provider Specialist; PCP Specialist; Visit Provider Specialist
DX: J96.11 Chronic respiratory failure with hypoxia (principal); I69.020 Aphasia following nontraumatic subarachnoid hemorrhage; I69.091 Dysphagia following nontraumatic subarachnoid hemorrhage; R13.10 Dysphagia, unspecified; F10.11 Alcohol abuse, in remission; N31.9 Neuromuscular dysfunction of bladder, unspecified; L89.153 Pressure ulcer of sacral region, stage 3; I10 Essential (primary) hypertension; E11.9 Type 2 diabetes mellitus without complications; N40.0 Benign prostatic hyperplasia without lower urinary tract symptoms; I69.051 Hemiplegia and hemiparesis following nontraumatic subarachnoid hemorrhage affecting right dominant side; Z99.11 Dependence on respirator [ventilator] status; Z93.0 Tracheostomy status; Z93.1 Gastrostomy status; Z66 Do not resuscitate; Z86.79 Personal history of other diseases of the circulatory system; A41.59 Other Gram-negative sepsis; B96.4 Proteus (mirabilis) (morganii) as the cause of diseases classified elsewhere; J95.851 Ventilator associated pneumonia; N17.9 Acute kidney failure, unspecified; N49.2 Inflammatory disorders of scrotum; N13.6 Pyonephrosis; N50.3 Cyst of epididymis; R31.0 Gross hematuria; R65.21 Severe sepsis with septic shock; Z74.01 Bed confinement status; Z75.1 Person awaiting admission to adequate facility elsewhere; Y84.8 Other medical procedures as the cause of abnormal reaction of the patient, or of later complication, without mention of misadventure at the time of the procedure; Y92.238 Other place in hospital as the place of occurrence of the external cause
CPT/HCPCS: 36415; 71045; 76870; 80053; 80069; 80076; 81001; 82947; 83036; 84145; 85025; 87040; 87070; 87077; 87086; 87186; 87205; 87502; 87811; 92610; 94002; 94004; 94640; 94762